=== PATIENT | male | born 1960 | race Caucasian/White ===

== ENCOUNTER 2023-09-19 09:37 | Inpatient (IN) | payer MEDICARE, MEDICAID, SELFPAY ==
[2023-09-19] VITALS (20 sets, daily range): BP systolic 93–117; BP diastolic 51–77; PULSE 66–95; RESP 9–22; TEMP 36.3–36.6; O2SAT 2–100; BMI 25.7; BMI 24.8
--- NOTE | 2023-09-19 09:59 | ED.SOB1 ---
HPI - SOB/Dyspnea General Chief Complaint: Shortness of Breath/Dyspnea Stated Complaint: SHORTNESS OF BREATH Time Seen by Provider: 09/19/23 09:59 Source: medical record and other Source comment: EMS Mode of arrival: ambulance Limitations: altered mental status and physical limitation Limitations comment: Pt has down syndrome History of Present Illness HPI Narrative: patient brought to us from his facility. The facility administrators here but she is not his power of estate planning attorney but she is in excellent historian in regards to his health. He has Down syndrome and this past May was hospitalized for an extensive period time with pneumonia. He was under hospice care at his current facility but he is no longer on that. However he is not to have life support or intubation. Normally he wears oxygen at nighttime. He has high risk for aspiration but he is on a soft diet.his guardian did arrive later in the Emergency Room visit. Related Data Allergies Allergy/AdvReac Type Severity Reaction Status Date / Time Penicillins Allergy Verified 09/19/23 09:41 [facility] PFS Social History Smoking status: Unknown if ever smoked Exam Narrative Exam Narrative: this is a 63-year-old man with history of Down's. He somewhat noncommunicative. Initially he did have a cough but he did receive breathing treatments in route here. His pulse oximetry on 2 L as fluctuated between ninety-five and ninety-nine percent. His oral cavity appears somewhat dry. There is no evidence of ENT trauma or injury. Airways widely patent. He is not drooling he's not stridorous. Chest shows scattered rhonchi with wheezing bilaterally. Abdomen is nondistended and nontender. Extremities do not show any evidence of trauma injury or skin breakdown. Neurologic was at baseline according to the caregiver and his guardian. Constitutional Vital Signs, click to edit/add: Last Vital Signs Temp 97.9 F 09/19/23 09:42 Pulse 94 H 09/19/23 09:42 Resp 22 09/19/23 09:42 BP 99/51 09/19/23 09:42 Pulse Ox 96 09/19/23 09:42 O2 Del Method Nasal Cannula 09/19/23 09:42 O2 Flow Rate 2 09/19/23 09:42 Course Vital Signs Vital signs: Vital Signs Temperature 97.9 F 09/19/23 09:42 Pulse Rate 94 H 09/19/23 09:42 Respiratory Rate 22 09/19/23 09:42 Blood Pressure 99/51 09/19/23 09:42 Pulse Oximetry 96 09/19/23 09:42 Oxygen Delivery Method Nasal Cannula 09/19/23 09:42 Oxygen Delivery Flow Rate 2 09/19/23 09:42 Temperature 97.9 F 09/19/23 09:42 Pulse Rate 94 H 09/19/23 09:42 Respiratory Rate 22 09/19/23 09:42 Blood Pressure 99/51 09/19/23 09:42 Pulse Oximetry 96 09/19/23 09:42 Oxygen Delivery Method Nasal Cannula 09/19/23 09:42 Oxygen Delivery Flow Rate 2 09/19/23 09:42 MDM - SOB/Dyspnea MDM Narrative Medical decision making narrative: chest x-ray is consistent with either atelectasis or early infiltrate in the right lung base. His white blood cell count is modestly elevated. His Bielen is also elevated when compared to [age] when his B1 was [age]. He was started on Rocephin. A bleeding scan early pneumonia and some volume depletion/dehydration. I'll speak to the hospitalist. He is a DNR CCA. Discharge Plan Discharge Chief Complaint: Shortness of Breath/Dyspnea Clinical Impression: Community acquired pneumonia, Dehydration Patient Disposition: Admitted as Observation Time of Disposition Decision: 12:31 Referrals: JESSICA ALBA [Primary Care Provider] - 1 week
--- NOTE | 2023-09-19 10:00 | ECG_ITS ---
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
--- NOTE | 2023-09-19 10:12 | XR_ITS ---
[facility] [place] [id number] Patient Name: MANNIE SANDOVAL MRN: [id number] date: 1960 Sex: M Assigned Patient Location: ER Current Patient Location: ED.MAIN Accession/Order Number: [id number] Exam Date: 09/19/2023 10:05 Report Date: 09/19/2023 12:22 At the request of: ALISON BETH Procedure: XR chest 1V EXAM: XR chest 1V at 1007 hours HISTORY: sob COMPARISON: 11/18/2021 TECHNIQUE: AP upright portable chest x-ray FINDINGS: There is been interval improved aeration at the lung bases with a small amount of atelectasis or infiltrate at the right lung base. The mid and upper lungs are otherwise clear except for a calcified granuloma at the left apex. An artifact courses over the right hemithorax. The heart is not enlarged and the vasculature is not distended. Degenerative changes are seen in the spine and diffusely throughout the shoulder girdle. XR/XR chest 1V IMPRESSION: A small amount of atelectasis or infiltrate is seen at the right lung base. There is significantly improved aeration at both lung bases with comparison with the prior study. There is no evidence of overt cardiac decompensation. Electronically authenticated by: DREA DICKENS Date: 09/19/2023 12:22
[2023-09-19 11:00] LABS: PCO2 VBG 59.2 mmHg (40.0-52.0); pH VBG 7.357 (7.330-7.430)
[2023-09-19] MEDS: CEFTRIAXONE 1,000 MG in 0.9 % SODIUM CHLORIDE 50 ML 100 MG IV (11:06)
[2023-09-19 11:08] LABS: Hematocrit 45.6 % (42.0-54.0); Hemoglobin 14.5 g/dL (14.0-18.0); Mean Corpuscular HGB Conc 31.8 g/dL (29.9-35.2); Mean Corpuscular Hemoglobin 33.2 pg (25.9-34.0); Mean Corpuscular Volume 104.3 fL (80.0-94.0); Mean Platelet Volume 10.7 fL (9.5-13.5); Platelet Count 166 10^3/uL (150-450); Red Blood Count 4.37 10^6/uL (4.70-6.10); White Blood Count 16.1 10^3/uL (4.0-11.0)
[2023-09-19 11:23] LABS: Segmented Neut Absolute Manual 15.13 10^3/uL (1.4-6.5)
[2023-09-19 11:24] LABS: Band Neutrophils Absolute 0.2 10^3/uL (0.0-0.3); Lymphocytes Absolute Manual 0.48 10^3/uL (1.20-3.80); Monocytes Absolute Manual 0.32 10^3/uL (0.30-0.80)
[2023-09-19 11:26] LABS: Alanine Aminotransferase <6 U/L (16-63); Albumin Globulin Ratio 0.7; Albumin Level 2.8 g/dL (3.4-5.0); Alkaline Phosphatase 89 U/L (46-116); Anion Gap 8.2; Aspartate Amino Transferase 12 U/L (15-37); Bilirubin Total 0.4 mg/dL (0.2-1.0); Calcium 8.9 mg/dL (8.5-10.1); Carbon Dioxide 32.7 mmol/L (21.0-32.0); Chloride 105 mmol/L (98-107); Estimated GFR (African America >60 (>=60); Estimated GFR (Non-African Ame >60 (>=60); Globulin 3.9 g/dL; Glucose 185 mg/dL (74-106); Potassium 3.9 mmol/L (3.5-5.1); Sodium 142 mmol/L (136-145); Total Protein 6.7 g/dL (6.4-8.2); Troponin I High Sensitivity 4.8 pg/mL (4.0-76.1)
[2023-09-19 12:13] LABS: Influenza Virus A Antigen Negative; Influenza Virus B Antigen Negative; Internal Control Within Normal Limits; SARS-CoV-2 Ag NEGATIVE (NEGATIVE)
--- NOTE | 2023-09-19 14:25 | P.HP_ITS ---
<Statement entered by Kizzy Dykes, - 09/19/23 15:12> This documentation has been reviewed and approved. I have also seen and evaluated patient and agree with the above findings and plan. H&P: HPI History of Present Illness Chief complaint: SHORTNESS OF BREATH Narrative: 09/19/23 1325 This is a 63-year-old male patient with a past medical history as outlined below including Down syndrome (baseline nonverbal and nonambulatory), BPH, chronic respiratory failure (2 L at night only), blindness of the left eye, chronic dysphagia with history of aspiration pneumonia; who presented to the ED from his residential facility complaining of acute onset of shortness of breath. The patient's care provider is at the bedside along with family and reports that the patient did well overnight with no acute complaints per staff, but this morning when the staff tried to get him up for the day they reported that he was having a hard time breathing. A little while later the caregiver noted that he was in respiratory distress and his O2 sat was 82% at that time. He was given a breathing treatment with brief increase in his saturations but then dropped back within 10 minutes to the low 80s and EMS was called. He was treated with breathing treatments x 2 in the ambulance and placed on O2 supplementation and his symptoms improved. He has a history of dysphagia and aspiration pneumonia, but no aspiration event was obvious to staff prior to this event. Workup in the ED revealed leukocytosis (16.1) dehydration with prerenal azotemia, and a right lower lobe infiltrate on chest x-ray suspicious for aspiration. His blood pressure was initially soft (99/51) but has stabilized with IV fluid administration. He is being admitted as an inpatient to the hospitalist service. At the time of my exam the patient is resting quietly in bed. As stated above he is nonverbal and nonambulatory. He does open his eyes to his name but is unable to cooperate with exam which reflects his baseline condition. Per the family at the bedside he may be a little more lethargic than usual but otherwise is at his baseline. He is in no respiratory distress at this time but is requiring O2 supplementation with 2 L via NC to maintain his saturations. Review of Systems ROS Status of ROS unobtainable due to mental status (Baseline non-verbal 2/2 Down's Syndrome) [facility] Medical History (Updated 09/19/23 @ 14:42 by Maribell Hilario NP) Dysphagia ?R13.10 - Dysphagia, unspecified (ICD-10) Obesity ?E66.9 - Obesity, unspecified (ICD-10) Trochanteric bursitis of right hip ?M70.61 - Trochanteric bursitis, right hip (ICD-10) Umbilical hernia ?K42.9 - Umbilical hernia without obstruction or gangrene (ICD-10) BPH (benign prostatic hyperplasia) ?N40.0 - Benign prostatic hyperplasia without lower urinary tract symptoms (ICD-10) Hyperlipidemia ?E78.5 - Hyperlipidemia, unspecified (ICD-10) Cataract ?H26.9 - Unspecified cataract (ICD-10) Hearing loss ?H91.90 - Unspecified hearing loss, unspecified ear (ICD-10) Blindness of left eye ?H54.40 - Blindness, one eye, unspecified eye (ICD-10) Arthritis ?M19.90 - Unspecified osteoarthritis, unspecified site (ICD-10) Down's syndrome ?Q90.9 - Down syndrome, unspecified (ICD-10) Social History Smoking status: Unknown if ever smoked Meds Home Medications and Allergies Home Medications Medication Instructions Recorded Confirmed Type acetaminophen 650 mg rectal 650 mg MA Q4H PRN fever or pain 09/19/23 09/19/23 History suppository acetaminophen 650 mg 650 mg PO Q8H PRN fever or pain 09/19/23 09/19/23 History tablet,extended release (Tylenol Arthritis Pain) albuterol sulfate 1.25 mg/3 mL 1.25 mg inhalation Q8H PRN 09/19/23 09/19/23 History solution for nebulization shortness of breath or wheezing ammonium lactate 12 % topical cream 1 applic topical DAILY 09/19/23 09/19/23 History bisacodyl 10 mg rectal suppository 10 mg MA DAILY PRN constipation 09/19/23 09/19/23 History dexamethasone 4 mg tablet 4 mg PO DAILY 09/19/23 09/19/23 History docusate sodium 100 mg capsule 100 mg PO DAILY 09/19/23 09/19/23 History (Colace) food supplemt, lactose-reduced 1 ea PO BID 09/19/23 09/19/23 History (Ensure oral liquid) guaifenesin 100 mg/5 mL oral 200 mg PO Q4H PRN cough 09/19/23 09/19/23 History liquid (Chest Congestion Relief) hydrocortisone 1 % topical cream 1 applic topical BID PRN skin 09/19/23 09/19/23 History irritation hyoscyamine sulfate 0.125 mg 0.125 mg PO Q8H 09/19/23 09/19/23 History disintegrating tablet ipratropium 0.5 mg-albuterol 3 mg 3 ml inhalation Q8H 09/19/23 09/19/23 History (2.5 mg base)/3 mL nebulization soln lanolin alcohols-mineral 1 applic topical BID 09/19/23 09/19/23 History oil-w.petrolatum-ceresin topical cream (Eucerin topical cream) loratadine 10 mg tablet 10 mg PO DAILY 09/19/23 09/19/23 History menthol 0.44 %-zinc oxide 20.6 % 1 applic topical TID-QID PRN skin 09/19/23 09/19/23 History topical ointment (Calmoseptine) irritation nystatin 100,000 unit/gram topical 1 applic topical BID 09/19/23 09/19/23 History powder omeprazole 20 mg capsule,delayed 20 mg PO BID 09/19/23 09/19/23 History release polyethylene glycol 3350 17 17 g PO DAILY PRN constipation 09/19/23 09/19/23 History gram/dose oral powder (Miralax) promethazine 25 mg tablet 25 mg PO Q6H PRN nausea and 09/19/23 09/19/23 History vomiting tamsulosin 0.4 mg capsule 0.4 mg PO DAILY 09/19/23 09/19/23 History Allergies Allergy/AdvReac Type Severity Reaction Status Date / Time Penicillins Allergy Verified 09/19/23 09:41 Exam Constitutional Vital Signs, click to edit/add: Last Vital Signs Temp 97.6 F 09/19/23 13:57 Pulse 66 09/19/23 13:57 Resp 22 09/19/23 13:57 BP 117/77 09/19/23 13:57 Pulse Ox 97 09/19/23 13:57 O2 Del Method Nasal Cannula 09/19/23 13:57 O2 Flow Rate 2 09/19/23 13:57 Common normals: no apparent distress and well nourished [facility] Common normals: normocephalic, head/scalp atraumatic and external nose normal Mouth: moist mucous membranes abnormal Details: cracked and parched Eye Common normals: EOMs intact bilaterally, conjunctivae normal and no scleral icterus Alignment: alignment normal Eyelid: eyelids normal Chest Common normals: inspection of chest normal Chest: symmetrical chest wall rise Respiratory Common normals: normal respiratory effort, no retractions and no use of accessory muscles Auscultation: rhonchi (RLL & upper airway) and diminished lung sounds (RLL) Cardio Common normals: no JVD, regular rate, regular rhythm, S1 normal heart sound, S2 normal heart sound, no gallops, no clicks, no murmurs, no rub and peripheral pulses 2+ throughout GI Common normals: Normal to inspection, nondistended, normoactive bowel sounds present, soft to palpation, non-tender, no hepatosplenomegaly, no masses and no bruits Bladder/kidney exam: bladder normal to palpation Extremity Common normals: normal capillary refill General: normal exam except as noted and edema (trace); no clubbing and no cyanosis Neuro Joo Coma Scale: GCS not evaluated Common normals: CN's II-XII intact bilaterally and moves all extremities Psych Common normals: affect normal Attitude: calm Results Labs Labs: Short CBC 09/19/23 Range/Units 10:46 WBC 16.1 H (4.0-11.0) 10^3/uL Hgb 14.5 (14.0-18.0) g/dL Hct 45.6 (42.0-54.0) % Plt Count 166 (150-450) 10^3/uL BMP 09/19/23 10:46 Sodium 142 Potassium 3.9 Chloride 105 Carbon Dioxide 32.7 H BUN 30.0 H Creatinine 1.00 Glucose 185 H Calcium 8.9 Liver Function 09/19/23 Range/Units 10:46 Total Bilirubin 0.4 (0.2-1.0) mg/dL AST 12 L (15-37) U/L ALT <6 L (16-63) U/L Alkaline Phosphatase 89 (46-116) U/L Albumin 2.8 L (3.4-5.0) g/dL ABG ABG results: 09/19/23 10:46 VBG pH 7.357 VBG pCO2 59.2 H Pulse Oximetry Attestation: I have reviewed the pertinent pulse oximetry results. Imaging Chest x-ray: Attestation: I have reviewed the pertinent imaging results. Radiologist's impression: IMPRESSION: A small amount of atelectasis or infiltrate is seen at the right lung base. There is significantly improved aeration at both lung bases with comparison with the prior study. There is no evidence of overt cardiac decompensation. Assessment and Plan Assessment and Plan (1) Aspiration pneumonia: Assessment and Plan: ACUTE * Adm inpatient * No witnessed aspiration event per staff but strong hx of dysphagia and aspiration along w/ RLL infiltrate - we clinically suspect aspiration pneumonia * RLL infiltrate on CXR * Hypoxia * Leukocytosis * Afebrile to date * IVPB Ertapenem for broad gram neg and anaerobic coverage (PCN allergy) * Low clinical concern for MRSA at this time * Duoneb q4h * Percussion vest therapy - pt is unable to cough effectively * O2 via NC to keep sats > 92% * Guaifenisen BID * Repeat CXR in AM * CBC, CMP daily Qualifiers: Aspiration pneumonia type: unspecified Laterality: right Lung location: lower lobe of lung Qualified Code(s): J69.0 - Pneumonitis due to inhalation of food and vomit (2) Acute hypoxic respiratory failure: Assessment and Plan: ACUTE * Pt uses 2L via NC at night only at baseline * O2 sat persistently in the low 80s prior to arrival, 84% documented while in the ED even w/ O2 supplementation * O2 to keep sats > 92%, wean off as able during the day (3) Dehydration: Assessment and Plan: ACUTE * Clinically very dry on exam * Pre-renal azotemia w/ BUN/Cr ratio of 30 * LR IVF at 100/hr * PO liquids thickened to honey (4) Dysphagia: Assessment and Plan: CHRONIC * Soft food, pureed if needed * Honey thickened liquids * Above diet used at home Qualifiers: Dysphagia type: unspecified Qualified Code(s): R13.10 - Dysphagia, unspecified (5) BPH (benign prostatic hyperplasia): Assessment and Plan: CHRONIC * Continue home tamsulosin Qualifiers: Lower urinary tract symptom presence: unspecified whether lower urinary tract symptoms present Qualified Code(s): N40.0 - Benign prostatic hyperplasia without lower urinary tract symptoms (6) Down's syndrome: Assessment and Plan: CHRONIC * Baseline: Non-verbal, non-ambulatory, cannot sit upright for prolonged periods (requires recliner)
--- NOTE | 2023-09-19 14:33 | CM.NOTE ---
[facility] called back and they will send a nurse within the hour to evaluate pt. Updated pt's caregiver that is at bedside.
--- NOTE | 2023-09-19 14:34 | CM.NOTE ---
Dr. Dykes and BRAD Reyna updated on Hospice to evaluate pt within the hour.
--- NOTE | 2023-09-19 16:00 | CM.NOTE ---
Hospice is at bedside for consult.
[2023-09-19 16:11] LABS: SARS-CoV-2 NAA NOT DETECTED (NOT DETECTE)
--- NOTE | 2023-09-19 16:11 | CM.NOTE ---
Hospice after consult feel pt is at his baseline and will not sign him on. Updated RN
[2023-09-19] MEDS: LACTATED RINGER'S SOLUTION 1,000 ML 100 ML IV (17:17)
[2023-09-19] MEDS: ENOXAPARIN SODIUM 40 MG/0.4 ML SYRINGE SUBQ (17:30)
[2023-09-19] MEDS: IPRATROPIUM/ALBUTEROL SULFATE 3 ML AMPUL.NEB IH ×2 (19:31→23:09)
[2023-09-19] MEDS: NYSTATIN 15 GM POWDER 1 APPLIC TOPICAL (21:52)
[2023-09-20] VITALS (9 sets, daily range): BP systolic 101–114; BP diastolic 56–68; PULSE 50–800; RESP 12–20; TEMP 36.7–37.1; O2SAT 90–97
[2023-09-20] MEDS: LACTATED RINGER'S SOLUTION 1,000 ML 100 ML IV ×3 (03:09→23:32)
[2023-09-20] MEDS: IPRATROPIUM/ALBUTEROL SULFATE 3 ML AMPUL.NEB IH ×6 (03:54→22:49)
--- NOTE | 2023-09-20 04:00 | XR_ITS ---
The [address] [address] Patient Name: MANNIE SANDOVAL MRN: [id number] date: 1960 Sex: M Assigned Patient Location: MS Current Patient Location: MS Accession/Order Number: [id number] Exam Date: 09/20/2023 04:28 Report Date: 09/20/2023 07:39 At the request of: JONE MEDRANO Procedure: XR chest 1V EXAM: XR chest 1V HISTORY: Hypoxia, RLL pneumonia COMPARISON: Chest study dated 09/19/2023 TECHNIQUE: AP view the chest was obtained with portable technique at 0425 hours. FINDINGS: Heart and mediastinal contours are unremarkable in appearance. Mild patchy infiltrative changes in the right lower lung field similar to the prior study. Mild atelectatic and/or minimal infiltrative changes in the left lower lung field similar to prior study. No obvious pneumothorax. Moderate to marked degenerative changes about the shoulders. Slight convexity of the lower dorsal spine to the right. XR/XR chest 1V IMPRESSION: Mild infiltrative changes in the right lower lung field. Mild atelectatic and/or minimal infiltrative changes in the left lower lung field. Findings are similar to the prior study. Electronically authenticated by: KUNAL CUELLAR Date: 09/20/2023 07:39
[2023-09-20 04:32] LABS: Basophils Absolute Auto 0.1 10^3/uL (0.0-0.1); Basophils Percent Auto 0.4 % (0.2-2.0); Eosinophils Absolute Auto 0.1 10^3/uL (0.0-0.7); Eosinophils Percent Auto 0.5 % (0.9-7.0); Hematocrit 39.5 % (42.0-54.0); Hemoglobin 12.9 g/dL (14.0-18.0); Immature Granulocytes Abs Auto 0.16 10^3/uL (0.00-0.03); Immature Granulocytes Pct Auto 1.4 % (0.0-0.5); Lymphocytes Absolute Auto 1.3 10^3/uL (1.2-3.8); Lymphocytes Percent Auto 11.7 % (20.5-60.0); Mean Corpuscular HGB Conc 32.7 g/dL (29.9-35.2); Mean Corpuscular Hemoglobin 32.9 pg (25.9-34.0); Mean Corpuscular Volume 100.8 fL (80.0-94.0); Mean Platelet Volume 10.3 fL (9.5-13.5); Monocytes Absolute Auto 0.7 10^3/uL (0.3-0.8); Monocytes Percent Auto 6.3 % (1.7-12.0); Neutrophils Absolute Auto 9.2 10^3/uL (1.4-6.5); Neutrophils Percent Auto 79.7 % (43.0-75.0); Platelet Count 137 10^3/uL (150-450); Red Blood Count 3.92 10^6/uL (4.70-6.10); Red Cell Distribution Width 14.8 % (11.0-15.0); White Blood Count 11.5 10^3/uL (4.0-11.0)
[2023-09-20 04:57] LABS: Alanine Aminotransferase 16 U/L (16-63); Albumin Globulin Ratio 0.7; Albumin Level 2.4 g/dL (3.4-5.0); Alkaline Phosphatase 72 U/L (46-116); Aspartate Amino Transferase 13 U/L (15-37); BUN Creatinine Ratio 28.8; Bilirubin Total 0.3 mg/dL (0.2-1.0); Calcium 8.6 mg/dL (8.5-10.1); Carbon Dioxide 27.8 mmol/L (21.0-32.0); Chloride 106 mmol/L (98-107); Estimated GFR (African America >60 (>=60); Estimated GFR (Non-African Ame >60 (>=60); Globulin 3.5 g/dL; Glucose 90 mg/dL (74-106); Potassium 3.8 mmol/L (3.5-5.1); Sodium 139 mmol/L (136-145); Total Protein 5.9 g/dL (6.4-8.2)
[2023-09-20] MEDS: HYOSCYAMINE SULFATE 0.125 MG TAB.SUBL PO ×2 (06:30→14:44)
[2023-09-20] MEDS: OMEPRAZOLE 20 MG CAPSULE.DR PO ×2 (08:38→17:05)
[2023-09-20] MEDS: TAMSULOSIN HCL 0.4 MG CAPSULE PO (08:38)
[2023-09-20] MEDS: GUAIFENESIN 200 MG/10 ML LIQUID PO (08:38)
[2023-09-20] MEDS: NYSTATIN 15 GM POWDER 1 APPLIC TOPICAL ×2 (08:38→21:43)
[2023-09-20] MEDS: DEXAMETHASONE 4 MG TABLET PO (08:38)
[2023-09-20] MEDS: DOCUSATE SODIUM 100 MG CAPSULE PO (08:38)
[2023-09-20] MEDS: ERTAPENEM SODIUM 1 GM in 0.9 % SODIUM CHLORIDE 50 ML IV (08:42)
--- NOTE | 2023-09-20 09:56 | CM.NOTE ---
Rounding with Dr. Dykes. Pt. is from care facility and family voiced plans to return upon discharge. No anticipated discharge today.
--- NOTE | 2023-09-20 10:11 | P.PN_ITS ---
<Statement entered by Kizzy Dykes DO - 09/20/23 14:06> This documentation has been reviewed and approved. Patient also seen and evaluated by me. I have reviewed and agree with the above findings and plan of care. Probable discharge back to [facility] tomorrow with oral antibiotics. Progress Note: Subjective Subjective Interval history: 09/20/23 0820 The patient is resting in bed. His respirations appear even and unlabored at this time. His O2 supplementation was able to be weaned off this morning and his sats are stable currently on room air. He continues to have significant rhonchi throughout and has poor cough effort. He will remain in the hospital for 1 more day for IVPB antibiotic administration and chest physiotherapy vest treatments to help with sputum mobilization. Discharge likely in the next 24-48 hrs. Exam Constitutional Vital Signs, click to edit/add: Last Vital Signs Temp 98.5 F 09/20/23 05:31 Pulse 50 L 09/20/23 07:44 Resp 20 09/20/23 05:31 BP 114/68 09/20/23 05:31 Pulse Ox 97 09/20/23 07:44 O2 Del Method Room Air 09/20/23 07:44 O2 Flow Rate 2 09/19/23 23:11 Common normals: no apparent distress Orientation/consciousness: not awake (opens eyes to voice) Other: Baseline MRDD, non-verbal, non-ambulatory HENMT Common normals: normocephalic and head/scalp atraumatic Mouth: moist mucous membranes abnormal Details: parched (Improving) Eye Common normals: PERRL, EOMs intact bilaterally, conjunctivae normal and no scleral icterus General eye: normal appearance of both eyes Chest Common normals: inspection of chest normal Chest: symmetrical chest wall rise Respiratory Common normals: normal respiratory effort and no use of accessory muscles Auscultation: rhonchi (Scattered throughout, greatest on R) Cardio Common normals: regular rate, regular rhythm, S1 normal heart sound, S2 normal heart sound, no murmurs and peripheral pulses 2+ throughout GI Common normals: Normal to inspection, nondistended, normoactive bowel sounds present, soft to palpation, non-tender and no hepatosplenomegaly Bladder/kidney exam: bladder normal to palpation Extremity Common normals: normal to inspection and no calf tenderness General: no clubbing, no cyanosis and no edema Neuro Common normals: moves all extremities Psych Common normals: mental status grossly normal Progress Note: Objective Labs Labs: Short CBC 09/19/23 09/20/23 Range/Units 10:46 04:18 WBC 16.1 H 11.5 H (4.0-11.0) 10^3/uL Hgb 14.5 12.9 L (14.0-18.0) g/dL Hct 45.6 39.5 L (42.0-54.0) % Plt Count 166 137 L (150-450) 10^3/uL BMP 09/19/23 09/20/23 10:46 04:18 Sodium 142 139 Potassium 3.9 3.8 Chloride 105 106 Carbon Dioxide 32.7 H 27.8 BUN 30.0 H 21.0 H Creatinine 1.00 0.73 Glucose 185 H 90 Calcium 8.9 8.6 Liver Function 09/19/23 09/20/23 Range/Units 10:46 04:18 Total Bilirubin 0.4 0.3 (0.2-1.0) mg/dL AST 12 L 13 L (15-37) U/L ALT <6 L 16 (16-63) U/L Alkaline Phosphatase 89 72 (46-116) U/L Albumin 2.8 L 2.4 L (3.4-5.0) g/dL Progress Note: A&P Assessment and Plan (1) Aspiration pneumonia: Assessment and Plan: ACUTE * Improving * Clinically suspected aspiration pneumonia * RLL infiltrate on CXR * Hypoxia - resolving to baseline 2L O2 at [facility] * Leukocytosis - Improved * remains afebrile to date * Continue IVPB Ertapenem for broad gram neg and anaerobic coverage (PCN allergy) * Low clinical concern for MRSA at this time * Continue Duoneb q4h * Continue Percussion vest therapy - pt is unable to cough effectively * O2 via NC to keep sats > 92% - weaned down to RA today. (Continue home O2 at [facility] @ 2L) * Guaifenisen BID * CBC, CMP daily Qualifiers: Aspiration pneumonia type: unspecified Laterality: right Lung location: lower lobe of lung Qualified Code(s): J69.0 - Pneumonitis due to inhalation of food and vomit (2) Acute hypoxic respiratory failure: Assessment and Plan: ACUTE * Resolving - Nursing able to wean off O2 supplementation this morning. Stable on RA * Pt uses 2L via NC at night only at baseline * O2 to keep sats > 92%, wean off as able during the day (3) Dehydration: Assessment and Plan: ACUTE * Clinically remains dry on exam but improving * Continue LR IVF at 100/hr * PO liquids thickened to honey (4) Dysphagia: Assessment and Plan: CHRONIC * Soft food, pureed if needed * Honey thickened liquids * Above diet used at home Qualifiers: Dysphagia type: unspecified Qualified Code(s): R13.10 - Dysphagia, unspecified (5) BPH (benign prostatic hyperplasia): Assessment and Plan: CHRONIC * Continue home tamsulosin Qualifiers: Lower urinary tract symptom presence: unspecified whether lower urinary tract symptoms present Qualified Code(s): N40.0 - Benign prostatic hyperplasia without lower urinary tract symptoms (6) Down's syndrome: Assessment and Plan: CHRONIC * Baseline: Non-verbal, non-ambulatory, cannot sit upright for prolonged periods (requires recliner)
[2023-09-20] MEDS: ENOXAPARIN SODIUM 40 MG/0.4 ML SYRINGE SUBQ (17:05)
[2023-09-21 03:27] VITALS: PULSE 67; RESP 18; O2SAT 93
[2023-09-21] MEDS: IPRATROPIUM/ALBUTEROL SULFATE 3 ML AMPUL.NEB IH ×3 (03:27→11:33)
[2023-09-21 05:02] VITALS: BP 137/92; PULSE 83; RESP 16; TEMP 36.8; O2SAT 94
[2023-09-21 05:45] LABS: Basophils Percent Auto 0.4 % (0.2-2.0); Eosinophils Absolute Auto 0.1 10^3/uL (0.0-0.7); Eosinophils Percent Auto 0.6 % (0.9-7.0); Hematocrit 41.6 % (42.0-54.0); Hemoglobin 13.2 g/dL (14.0-18.0); Immature Granulocytes Abs Auto 0.12 10^3/uL (0.00-0.03); Immature Granulocytes Pct Auto 1.4 % (0.0-0.5); Lymphocytes Absolute Auto 1.1 10^3/uL (1.2-3.8); Lymphocytes Percent Auto 13.4 % (20.5-60.0); Mean Corpuscular HGB Conc 31.7 g/dL (29.9-35.2); Mean Corpuscular Hemoglobin 32.7 pg (25.9-34.0); Mean Platelet Volume 10.5 fL (9.5-13.5); Monocytes Absolute Auto 0.5 10^3/uL (0.3-0.8); Monocytes Percent Auto 6.4 % (1.7-12.0); Neutrophils Absolute Auto 6.5 10^3/uL (1.4-6.5); Neutrophils Percent Auto 77.8 % (43.0-75.0); Platelet Count 165 10^3/uL (150-450); Red Blood Count 4.04 10^6/uL (4.70-6.10); Red Cell Distribution Width 14.9 % (11.0-15.0); White Blood Count 8.3 10^3/uL (4.0-11.0)
[2023-09-21 06:19] LABS: Alanine Aminotransferase 17 U/L (16-63); Albumin Globulin Ratio 0.6; Albumin Level 2.4 g/dL (3.4-5.0); Alkaline Phosphatase 77 U/L (46-116); Anion Gap 8.8; Aspartate Amino Transferase 10 U/L (15-37); BUN Creatinine Ratio 18.9; Bilirubin Total 0.3 mg/dL (0.2-1.0); Calcium 8.7 mg/dL (8.5-10.1); Carbon Dioxide 30.1 mmol/L (21.0-32.0); Chloride 104 mmol/L (98-107); Estimated GFR (African America >60 (>=60); Estimated GFR (Non-African Ame >60 (>=60); Globulin 3.7 g/dL; Glucose 105 mg/dL (74-106); Potassium 3.9 mmol/L (3.5-5.1); Sodium 139 mmol/L (136-145); Total Protein 6.1 g/dL (6.4-8.2)
[2023-09-21] MEDS: HYOSCYAMINE SULFATE 0.125 MG TAB.SUBL PO (06:22)
[2023-09-21 08:11] VITALS: O2SAT 95
[2023-09-21] MEDS: GUAIFENESIN 200 MG/10 ML LIQUID PO (08:50)
[2023-09-21] MEDS: OMEPRAZOLE 20 MG CAPSULE.DR PO (08:50)
[2023-09-21] MEDS: ERTAPENEM SODIUM 1 GM in 0.9 % SODIUM CHLORIDE 50 ML IV (08:50)
[2023-09-21] MEDS: DEXAMETHASONE 4 MG TABLET PO (08:50)
[2023-09-21] MEDS: TAMSULOSIN HCL 0.4 MG CAPSULE PO (08:50)
[2023-09-21] MEDS: DOCUSATE SODIUM 100 MG CAPSULE PO (08:50)
[2023-09-21] MEDS: LACTATED RINGER'S SOLUTION 1,000 ML 100 ML IV (08:51)
[2023-09-21] MEDS: NYSTATIN 15 GM POWDER 1 APPLIC TOPICAL (08:51)
--- NOTE | 2023-09-21 10:31 | P.DS_ITS ---
DS: Providers Provider Date of admission: 09/19/23 15:01 Primary care physician: JESSICA ALBA Consults: 09/19/23 Consult to Hospice Routine Reason for consultation: Extensive pneumonia (Down Syndrome) Recently discharge from Hospice DS: Diagnosis Discharge Diagnosis (1) Aspiration pneumonia: Qualifiers: Aspiration pneumonia type: unspecified Laterality: right Lung location: lower lobe of lung Qualified Code(s): J69.0 - Pneumonitis due to inhalation of food and vomit (2) Acute hypoxic respiratory failure: (3) Dehydration: (4) Dysphagia: Qualifiers: Dysphagia type: unspecified Qualified Code(s): R13.10 - Dysphagia, unspecified (5) BPH (benign prostatic hyperplasia): Qualifiers: Lower urinary tract symptom presence: unspecified whether lower urinary tract symptoms present Qualified Code(s): N40.0 - Benign prostatic hyperplasia without lower urinary tract symptoms (6) Down's syndrome: Plan (1) Aspiration pneumonia: ACUTE, RLL infiltrate on CXR * Hypoxia - resolving to baseline 2L O2 at noc * Leukocytosis - Improved * (2) Acute hypoxic respiratory failure: (3) Dehydration: (4) Dysphagia: (5) BPH: (6) Down's syndrome: (7) Mod PCM based on NIH criteria (8) Iron def anemia (9) Thrombocytopenia DS: Summary Hospital Course Hospital Course: Patient is a resident of a long-term care facility with Down syndrome, nonverbal, presented with increasing shortness of breath, found to have bilateral infiltrates, consistent with aspiration pneumonia-patient treated with aerosol treatments, IV antibiotics, broad-spectrum secondary to her facility. Her blood cell count initially elevated but is back down to normal, also some thrombocytopenia likely secondary to bone marrow suppression from the above. Overall patient is back to baseline from an oxygenation standpoint, white blood cell count is normal, platelet count is recovered, BUN and creatinine consistent with dehydration were improved. He will be discharged back to his facility with continued antibiotics. Medications see list. Follow-up with normal physician at facility Time Spent with Patient Time attestation: Total time spent providing and/or coordinating discharge services: Exam Constitutional Vital Signs, click to edit/add: Last Vital Signs Temp 98.2 F 09/21/23 05:02 Pulse 83 09/21/23 05:02 Resp 16 09/21/23 05:02 BP 137/92 H 09/21/23 05:02 Pulse Ox 95 09/21/23 08:11 O2 Del Method Room Air 09/21/23 08:11 O2 Flow Rate 2 09/19/23 23:11 Common normals: no apparent distress Orientation/consciousness: not awake (opens eyes to voice) Other: Baseline MRDD, non-verbal, non-ambulatory HENMT Common normals: normocephalic and head/scalp atraumatic Mouth: moist mucous membranes abnormal Details: parched (Improving) Eye Common normals: PERRL, EOMs intact bilaterally, conjunctivae normal and no scleral icterus General eye: normal appearance of both eyes Chest Common normals: inspection of chest normal Chest: symmetrical chest wall rise Respiratory Common normals: normal respiratory effort and no use of accessory muscles Auscultation: rhonchi (Scattered throughout, greatest on R) Cardio Common normals: regular rate, regular rhythm, S1 normal heart sound, S2 normal heart sound, no murmurs and peripheral pulses 2+ throughout GI Common normals: Normal to inspection, nondistended, normoactive bowel sounds present, soft to palpation, non-tender and no hepatosplenomegaly Bladder/kidney exam: bladder normal to palpation Extremity Common normals: normal to inspection and no calf tenderness General: no clubbing, no cyanosis and no edema Neuro Common normals: moves all extremities Psych Common normals: mental status grossly normal DS: Data Data Completed and Pending Labs on day of discharge: Labs from last 24 hours 09/21/23 04:47 WBC 8.3 RBC 4.04 L Hgb 13.2 L Hct 41.6 L MCV 103.0 H MCH 32.7 MCHC 31.7 RDW 14.9 Plt Count 165 MPV 10.5 Neut % (Auto) 77.8 H Lymph % (Auto) 13.4 L Ramsey % (Auto) 6.4 Eos % (Auto) 0.6 L Baso % (Auto) 0.4 Neut # (Auto) 6.5 Lymph # (Auto) 1.1 L Ramsey # (Auto) 0.5 Eos # (Auto) 0.1 Baso # (Auto) 0.0 Abs Immat Gran (auto) 0.12 H Imm/Tot Granulo (auto) 1.4 H Sodium 139 Potassium 3.9 Chloride 104 Carbon Dioxide 30.1 Anion Gap 8.8 BUN 14.0 Creatinine 0.74 Est GFR ( Amer) >60 Est GFR (Non-Af Amer) >60 BUN/Creatinine Ratio 18.9 Glucose 105 Calcium 8.7 Total Bilirubin 0.3 AST 10 L ALT 17 Alkaline Phosphatase 77 Total Protein 6.1 L Albumin 2.4 L Globulin 3.7 Albumin/Globulin Ratio 0.6 Discharge Plan Discharge Disposition: Xfer LTC Discharge Medications: New levofloxacin 500 mg tablet 500 mg PO DAILY 10 Days Qty: 10 0RF Continued dexamethasone 4 mg tablet 4 mg PO DAILY docusate sodium [Colace] 100 mg capsule 100 mg PO DAILY hyoscyamine sulfate 0.125 mg tablet,disintegrating 0.125 mg PO Q8H loratadine 10 mg tablet 10 mg PO DAILY omeprazole 20 mg capsule,delayed release(DR/EC) 20 mg PO BID tamsulosin 0.4 mg capsule 0.4 mg PO DAILY acetaminophen [Tylenol Arthritis Pain] 650 mg tablet extended release 650 mg PO Q8H PRN (Reason: fever or pain) albuterol sulfate 1.25 mg/3 mL solution for nebulization 1.25 mg inhalation Q8H PRN (Reason: shortness of breath or wheezing) bisacodyl 10 mg suppository 10 mg MA DAILY PRN (Reason: constipation) promethazine 25 mg tablet 25 mg PO Q6H PRN (Reason: nausea and vomiting) Rx Instructions: 3 doses during day; last dose no later than 4 hr before bedtime ammonium lactate 12 % cream 1 applic topical DAILY Rx Instructions: APPLY TO AFFECTED AREA nystatin 100,000 unit/gram powder 1 applic topical BID Ensure Liquid 1 ea PO BID ipratropium-albuterol 0.5 mg-3 mg(2.5 mg base)/3 mL solution for nebulization 3 ml inhalation Q8H Eucerin Cream 1 applic topical BID acetaminophen 650 mg suppository 650 mg MA Q4H PRN (Reason: fever or pain) Rx Instructions: MAX 4 GRAM/DAY menthol-zinc oxide [Calmoseptine] 0.44-20.6 % ointment 1 applic topical TID-QID PRN (Reason: skin irritation) Rx Instructions: APPLY TO BUTTOCKS WITH EACH BRIEF CHANGE NEEDED guaifenesin [Chest Congestion Relief] 100 mg/5 mL liquid 200 mg PO Q4H PRN (Reason: cough) hydrocortisone 1 % cream 1 applic topical BID PRN (Reason: skin irritation) polyethylene glycol 3350 [Miralax] 17 gram/dose powder 17 g PO DAILY PRN (Reason: constipation) Rx Instructions: TAKE NEEDED FOR NO BOWEL MOVEMENT FOR 48 HOURS Forms: Portal Instructions Follow Up Appointments: Patient to follow up with Primary Care Physician in 7-10 days.
[2023-09-21 11:36] VITALS: O2SAT 94
== END 2023-09-21 13:12 | DRG 177 ==
LOC: ER 12:31 → MS 12:50
PROVIDERS: Nurse Practitioner; Admitting Provider Family Medicine; Emergency Provider Emergency Medicine Emergency Medical Services; PCP Internal Medicine; Visit Provider Family Medicine
DX: J69.0 Pneumonitis due to inhalation of food and vomit (principal); J96.01 Acute respiratory failure with hypoxia; E44.0 Moderate protein-calorie malnutrition; Q90.9 Down syndrome, unspecified; N40.0 Benign prostatic hyperplasia without lower urinary tract symptoms; H54.62 Unqualified visual loss, left eye, normal vision right eye; R13.10 Dysphagia, unspecified; E86.0 Dehydration; E66.9 Obesity, unspecified; E78.5 Hyperlipidemia, unspecified; M19.90 Unspecified osteoarthritis, unspecified site; Z79.899 Other long term (current) drug therapy; R79.89 Other specified abnormal findings of blood chemistry; D50.9 Iron deficiency anemia, unspecified; D69.6 Thrombocytopenia, unspecified; Z68.24 Body mass index [BMI] 24.0-24.9, adult; F79 Unspecified intellectual disabilities; Z87.01 Personal history of pneumonia (recurrent); Z66 Do not resuscitate
CPT/HCPCS: 36415; 71045; 80053; 82800; 83880; 84484; 85025; 85027; 87040; 87635; 87804; 87811; 93005; 94640; 94667; 94668; 94761; 96361; 96365; 96366; 96367; 96372; 99285; J1335

== ENCOUNTER 2023-10-13 09:35 | Inpatient (IN) | payer MEDICARE, MEDICAID, SELFPAY ==
[2023-10-13] VITALS (27 sets, daily range): BP systolic 107–119; BP diastolic 62–78; PULSE 56–94; RESP 0–28; TEMP 36.4–36.9; O2SAT 93–98; BMI 28.2; BMI 25.8
--- NOTE | 2023-10-13 09:42 | XR_ITS ---
The [address] [address] Patient Name: MANNIE SANDOVAL MRN: [id number] date: 1960 Sex: M Assigned Patient Location: ED.MAIN Current Patient Location: ER Accession/Order Number: [id number] Exam Date: 10/13/2023 09:50 Report Date: 10/13/2023 10:14 At the request of: MOISES DE ANDA Procedure: XR chest 1V EXAMINATION: XR chest 1V HISTORY: sob COMPARISON: XR chest 09/20/2023 FINDINGS: LUNGS: Underexpanded lungs with mild patchy and strandy opacities within medial right lung base. VASCULATURE: No increased pulmonary vasculature. PLEURA: No pneumothorax, effusion, or pleural thickening. CARDIAC: No cardiomegaly or cardiac silhouette abnormality. MEDIASTINUM: No visible mass or adenopathy. BONES: Advanced degenerative changes of the shoulders. OTHER: Negative. XR/XR chest 1V IMPRESSION: 1. Low lung volume examination with mild right basilar infiltrates versus atelectasis; not significant changed. Electronically authenticated by: MANISH BURNETT Date: 10/13/2023 10:14
--- OUTSIDE RECORDS SUMMARY | 2023-10-13 09:47 | XMS_ITS | CCD ---
Author Name Unknown Address [address] [facility] [address] [place] [address] Organization [facility] Care Team Providers [employer] Name Role Phone Jessica Alba Primary Care Provider JESSICA ALBA Primary Care Unavailable Fer Page Attending Unavailable JESSICA ALBA Consulting Unavailable Jessica Alba Primary Care Provider [phone] Jessica Alba MD Primary Care Provider Jessica Alba MD Primary Care Provider Jessica Alba MD Primary Care Provider SAM, MIKE Attending Unavailable DR ORITZ SINHA Consulting Unavailable MISC, DR JOHNSON Primary Care Unavailable SAMSA, MIKE Admitting Unavailable SAMSA MIKE Consulting Unavailable AUSTIN BARCLAY Consulting Unavailable Kianna Donato Consulting Unavailable DR JESSICA ALBA Admitting Unavailable KVNG, DR JOHNSON Primary Care Unavailable PARTH, DR LOPEZ Attending Unavailable DR JESSICA ALBA Consulting Unavailable HAYDEE HAMMOND Attending Unavailable HAYDEE HAMMOND Admitting Unavailable HAYDEE HAMMOND Consulting Unavailable MISSravani, DR JOHNSON Primary Care Unavailable MISC, DR JOHNSON Primary Care Unavailable KATARZYNA ADAMS Admitting Unavailable KATARZYNA ADAMS Attending Unavailable KATARZYNA ADAMS Consulting Unavailable JEAN POWER Consulting Unavailable Kristi Griffin Consulting Unavailable Alexx Foreman Consulting Unavailable Jessica Alba MD Primary Care Provider JESSICA ALBA Primary Care Unavailable JESSICA ALBA Attending Unavailable FERDINAND SMITH Consulting Unavailable JESSICA ALBA Admitting Unavailable JESSICA ALBA Primary Care Unavailable JESSICA ALBA Primary Care Unavailable JANUARY DAY Referring Unavailable JESSICA ALBA Primary Care Unavailable JANUARY DAY [facility] CAN GIORDANO Admitting Unavailable CAN GIORDANO Attending Unavailable Allergies Allergy Classification Reported Allergen(s) Allergy Type Date of Onset Reaction(s) Facility Penicillins (antibiotic) (1 source) Penicillins Drug Allergy 4 [facility] Work Phone: (20 sources) Penicillins Propensity to adverse reactions to drug 4 [facility], [place] (2 sources) Penicillin; Translations: [penicillin] Drug Allergy 2 [facility] Repository Medications Current Medications Medication Drug Class(es) Dates Sig (Normalized) Sig (Original) Acetaminophen (20 sources) Start: 05-29-2022 acetaminophen (TYLENOL) tablet 650 mg Start: 10-20-2019 take 2 tablets by mo uth twice daily as needed for pain acetaminophen (SM PAIN RELIEVER) 325 MG tablet Take 2 tablets by mouth 2 times daily as needed for Pain Maximum dose of acetaminophen is 4000 mg from all sources in 24 hours. 120 tablet 2 10/20/2019 Suspended Start: 09-16-2018 take 2 tablets by mo uth twice daily as needed for pain acetaminophen (MAPAP) 325 MG tablet Take 2 tablets by mouth 2 times daily as needed for Pain 120 tablet 3 09/16/2018 Active albuterol 0.83 mg/ml inhalation solution (5 sources) beta2-Adrenergic Agonist Start: 05-29-2022 albut qing (PROVENTIL) nebulizer solution 1.25 mg Start: 12-23-2020 take 3 mL by inhalat ion three times daily as needed for wheezing albuterol (ACCUNEB) 1.25 MG/3ML nebulizer solution Indications: Acute bronchitis, unspecified organism Inhale 3 mLs into the lungs 3 times daily as needed for Wheezing 120 vial 1 12/23/2020 Active albuterol (ACCUN EB) 1.25 MG/3ML nebulizer solution Inhale 1 ampule into the lungs every 6 hours as needed for Wheezing 0 Suspended calcium chloride 0.0014 meq/ ml / potassium chloride 0.004 meq/ml / sodium chloride 0.103 meq/ml / sodium lactate 0.028 meq/ml injectable solution (2 sources) Start: 07-13-2021 lactated ringe rs infusion Start: 11-02-2019 lactated ringe rs infusion famotidine 20 mg oral tablet (9 sources) Histamine-2 Receptor Antagonist Start: 01-08-2020 take 1 tablet by mouth twice daily famotidine (PEPCID) 20 MG tablet Take 1 tablet by mouth 2 times daily 60 tablet 3 01/08/2020 Active Start: 09-01-2019 take 1 tablet by mary th twice daily famotidine (PEPCID) 20 MG tablet Take 1 tablet by mouth 2 times daily 60 tablet 5 09/01/2019 Active take 1 tablet by mary th twice daily famotidine (PEPCID) 10 MG tablet Take 10 mg by mouth 2 times daily 0 Active fluticasone propionate 0.05 mg/actuat metered dose nasal spray (1 source) Corticosteroid Start: 01-20-2020 take 1 spray(s) nasal route once daily fluticasone (FLONASE) 50 MCG/ACT nasal spray 1 spray by Each Nostril route daily [id number] 2 Bottle 0 01/20/2020 Active 60 actuat fluticasone propionate 0.25 mg/actuat / salmeterol 0.05 mg/actuat dry powder inhaler (1 source) Corticosteroid, beta2-Adrenergic Agonist Start: 01-20-2020 take 1 puff(s) by inhalation every twelve hours fluticasone-salme terol (ADVAIR DISKUS) 250-50 MCG/DOSE AEPB Inhale 1 puff into the lungs every 12 hours x4 weeks 60 each 0 01/20/2020 Active levoFLOXacin 500 mg oral tablet (2 sources) Quinolone Antimicrobial Start: 05-31-2022 End: 06-07-2022 take 1 tablet by mouth once daily levoFLOXacin (LEVAQUIN) 500 MG tablet Take 1 tablet by mouth daily for 7 days 7 tablet 0 05/31/2022 06/07/2022 Active Start: 05-29-2022 levoFLOXacin ( LEVAQUIN) 750 MG/150ML infusion 750 mg mirtazapine 7.5 mg oral tablet (2 sources) Start: 04-19-2021 take 1 tablet by mouth once daily mirtazapine (REMERON) 7.5 MG tablet Take 1 tablet by mouth nightly 30 tablet 5 04/19/2021 Active nitrofurantoin, macrocrystals 25 mg / nitrofurantoin, monohydrate 75 mg oral capsule (4 sources) Nitrofuran Antibacterial Start: 08-18-2019 End: 08-28-2019 take 1 capsule by mouth twice daily nitrofurantoin, macrocrystal-monohy drate, (MACROBID) 100 MG capsule Take 1 capsule by mouth 2 times daily for 10 days 20 capsule 0 08/18/2019 08/28/2019 Active nystatin 100 unt/mg topical powder (6 sources) Polyene Antifungal Start: 09-15-2018 nystatin (MYCOSTATIN) [id number] UNIT/GM powder Apply 3 times daily PRN 45 g 3 09/15/2018 Active ondansetron (ZOFRAN-ODT) disintegrating tablet 4 mg (1 source) Start: 05-29-2022 ondansetron (ZOFRAN-ODT) disintegrating tablet 4 mg petrolatum 610 mg/ml topical cream (10 sources) Start: 05-29-2022 apply 1 dose topically once daily Topical, DAILY, First dose on Sat05/29/22 at 1500 Apply to skin folds. Start: 01-31-2018 Skin Protectan ts, Misc. (HYDROCERIN) CREA cream Apply to abdominal folds daily 228 g 5 01/31/2018 Suspended raNITIdine 150 mg oral tablet (6 sources) Histamine-2 Receptor Antagonist Start: 02-09-2019 take 1 tablet by mouth once daily ranitidine (ZANTAC) 150 MG tablet Take 1 tablet by mouth daily 90 tablet 3 02/09/2019 Active sertraline 25 mg oral tablet (3 sources) Serotonin Reuptake Inhibitor Start: 01-11-2021 take 0.5 tablet by mouth once daily sertraline (ZOLOFT) 25 MG tablet Take 0.5 tablets by mouth daily 30 tablet 5 01/11/2021 Active Skin Protectants, Misc. (HYDROCERIN) CREA cream (12 sources) Start: 01-31-2018 Skin Protectants, Misc. (HYDROCERIN) CREA cream Apply to abdominal folds daily 228 g 5 01/31/2018 Active sulfamethoxazole 800 mg / trimethoprim 160 mg oral tablet (2 sources) Dihydrofolate Reductase Inhibitor Antibacterial, Sulfonamide Antimicrobial take 1 tablet by mouth twice daily sulfamethoxazole -trimethoprim (BACTRIM DS;SEPTRA DS) 800-160 MG per tablet Take 1 tablet by mouth 2 times daily To be taken for ten days. 0 Active Completed/Discontinued Medications Medication Drug Class(es) Dates Sig (Normalized) Sig (Original) albuterol 0.833 mg/ml / ipratropium bromide 0.167 mg/ml inhalation solution (2 sources) Anticholinergic, beta2-Adrenergic Agonist Start: 05-29-2022 End: 05-29-2022 ipratropium-albut qing (DUONEB) nebulizer solution 1 ampule ascorbic acid 500 mg oral tablet (1 source) Vitamin C Start: 11-30-2021 End: 05-31-2022 take 2 tablets by mouth once daily vitamin C (ASCORBIC ACID) 500 MG tablet Indications: COVID Take 2 tablets by mouth daily for 14 days 28 tablet 0 11/30/2021 05/31/2022 Discontinued (Stop Taking at Discharge) aspirin 325 mg delayed release oral tablet (1 source) Platelet Aggregation Inhibitor, Nonsteroidal Anti-inflammatory Drug Start: 11-30-2021 End: 05-31-2022 take 1 tablet by mouth once daily aspirin 325 MG EC tablet Indications: COVID Take 1 tablet by mouth daily for 14 days 14 tablet 0 11/30/2021 05/31/2022 Discontinued (Stop Taking at Discharge) atorvastatin 40 mg oral tablet (1 source) HMG-CoA Reductase Inhibitor Start: 05-29-2022 take 40 mg by mouth once daily 40 mg, Oral, DAILY, First dose on Sat05/29/22 at 1500, Until Discontinued Substituted for Simvastatin (ZOCOR). barium sulfate 60 % suspension 355 mL (1 source) Start: 05-30-2022 End: 05-30-2022 barium sulfate 60 % suspension 355 mL cetirizine hydrochloride 10 mg oral tablet (1 source) Histamine-1 Receptor Antagonist Start: 05-29-2022 take 10 mg by mouth once daily 10 mg, Oral, DAILY, First dose on Sat05/29/22 at 1500, Until Discontinued Substituted for Loratadine (CLARITIN). cholecalciferol 0.025 mg oral tablet (1 source) Vitamin D Start: 11-30-2021 End: 05-31-2022 take 1 tablet by mouth once daily vitamin D3 (CHOLECALCIFEROL) 25 MCG (1000 UT) TABS tablet Indications: COVID Take 1 tablet by mouth daily for 14 days 14 tablet 0 11/30/2021 05/31/2022 Discontinued (Stop Taking at Discharge) 50 ml clindamycin 18 mg/ml injection (1 source) Lincosamide Antibacterial Start: 07-13-2021 End: 07-13-2021 clindamycin (CLEOCIN) 900 mg in dextrose 5 % 50 mL IVPB docusate sodium 100 mg oral capsule (20 sources) Start: 08-01-2020 take 100 mg by mouth once daily 100 mg, Oral, NIGHTLY, First dose on Sat05/29/22 at 2100, Until Discontinued Do not crush or break. Start: 05-03-2020 take 1 capsule by mo uth once daily docusate sodium (COLACE) 100 MG capsule Take 1 capsule by mouth nightly 90 capsule 0 05/03/2020 Active Start: 02-02-2020 take 1 capsule by mo uth once daily docusate sodium (COLACE) 100 MG capsule Take 1 capsule by mouth nightly 90 capsule 0 02/02/2020 Active Start: 08-13-2019 take 1 capsule by mo uth once daily docusate sodium (COLACE) 100 MG capsule Take 1 capsule by mouth nightly 90 capsule 1 08/13/2019 Active 0.4 ml enoxaparin sodium 100 mg/ml prefilled syringe (1 source) Low Molecular Weight Heparin Start: 05-29-2022 inject 40 mg by subcutaneous injection once daily 40 mg, SubCUTAneous, DAILY, First dose on Sat05/29/22 at 1500, Until Discontinued Indication of Use: Prophylaxis-DVT/PE glucagon (rdna) 1 mg injection (1 source) Antihypoglycemic Agent Start: 09-06-2019 End: 09-06-2019 glucagon (rDNA) injection 1 mg guaiFENesin 20 mg/ml oral solution (2 sources) Start: 11-24-2021 take 200 mg by mouth every four hours as needed 200 mg, Oral, EVERY 4 HOURS PRN, Starting on Sat05/29/22 at 1436, Until Discontinued, Cough iopamidol (ISOVUE-370) 76 % injection 75 mL (1 source) Start: 06-02-2020 End: 06-02-2020 iopamidol (ISOVUE-370) 76 % injection 75 mL 10 ml lidocaine hydrochloride 10 mg/ml injection (1 source) Antiarrhythmic, Amide Local Anesthetic Start: 07-26-2020 End: 07-26-2020 lidocaine PF 1 % injection loratadine 10 mg oral tablet (17 sources) Start: 02-27-2022 take 1 tablet by mouth once daily loratadine (CLARITIN) 10 MG tablet Indications: Seasonal allergic rhinitis due to pollen Take 1 tablet by mouth daily 30 tablet 5 02/27/2022 Suspended Start: 12-04-2018 take 1 tablet by mary th once daily as needed for congestion loratadine (CLARITIN) 10 MG tablet GIVE 1 TABLET BY MOUTH DAILY NEEDED FOR CONGESTION *CALL PHARMACY FOR REFILLS* 30 tablet 3 12/04/2018 Active meloxicam 15 mg oral tablet (20 sources) Nonsteroidal Anti-inflammatory Drug Start: 05-03-2020 take 15 mg by mouth once daily 15 mg, Oral, DAILY, First dose on Sat05/29/22 at 1500, Until Discontinued Start: 11-10-2019 take 1 tablet by mary th once daily meloxicam (MOBIC) 15 MG tablet Take 1 tablet by mouth daily 90 tablet 1 11/10/2019 Active Start: 05-08-2019 take 1 tablet by mary th once daily meloxicam (MOBIC) 15 MG tablet Take 1 tablet by mouth daily 90 tablet 1 05/08/2019 Active Menthol / Zinc Oxide (3 sources) Menthol-Zinc Oxi de (CALMOSEPTINE EX) Apply topically as needed 0 Suspended Menthol-Zinc Oxi de (CALMOSEPTINE EX) Apply topically as needed 0 Active methylPREDNISolone 125 mg injection (7 sources) Corticosteroid Start: 05-29-2022 End: 05-29-2022 methylPREDNISolone sodium (SOLU-MEDROL) injection 125 mg Start: 12-28-2019 methylPREDNISo lone (MEDROL) 4 MG tablet Indications: Acute bronchitis, unspecified organism TAPER 21 tablet 0 12/28/2019 Active 5 ml metoprolol tartrate 1 mg/ml injection (1 source) beta-Adrenergic Eduard Start: 05-30-2022 End: 05-31-2022 metoprolol (LOPRESSOR) injection 5 mg montelukast 10 mg oral tablet (3 sources) Leukotriene Receptor Antagonist Start: 08-09-2020 End: 07-11-2021 take 1 tablet by mouth once daily montelukast (SINGULAIR) 10 MG tablet Indications: Postnasal drip Take 1 tablet by mouth daily 30 tablet 0 08/09/2020 07/11/2021 Discontinued (Therapy completed) mupirocin 0.02 mg/mg topical ointment (1 source) RNA Synthetase Inhibitor Antibacterial Start: 07-20-2020 End: 07-27-2020 mupirocin (BACTROBAN) 2 % ointment Apply 3 times daily. 1 Tube 0 07/20/2020 07/27/2020 omeprazole 20 mg delayed release oral capsule (8 sources) Proton Pump Inhibitor Start: 06-14-2020 take 1 capsule by mouth twice daily omeprazole (PRILOSEC) 20 MG delayed release capsule Take 1 capsule by mouth 2 times daily 62 capsule 3 06/14/2020 Suspended pantoprazole 40 mg delayed release oral tablet (1 source) Proton Pump Inhibitor Start: 05-29-2022 take 40 mg by mouth twice daily before mealtime 40 mg, Oral, 2 TIMES DAILY BEFORE MEALS, First dose on Sat05/29/22 at 1600, Until Discontinued Do not crush or break. Substituted for Omeprazole (PRILOSEC). pantoprazole (PROTONIX) 40 mg in sodium chloride (PF) 10 mL injection (1 source) Start: 05-29-2022 End: 05-31-2022 pantoprazole (PROTONIX) 40 mg in sodium chloride (PF) 10 mL injection polyethylene glycol 3350 [id number] mg powder for oral solution (10 sources) Osmotic Laxative Start: 05-29-2022 17 g, Oral, DAILY, First dose on Sat05/29/22 at 1500, Until Discontinued Start: 11-12-2018 polyethylene g lycol (GLYCOLAX) packet GIVE 1 POWDER PACK BY MOUTH ONCE DAILY *DISSOLVE IN 4-8 OZ WATER/JUICE SEND WITH CYCLE 90 each 3 11/12/2018 Active simvastatin 80 mg oral tablet (20 sources) HMG-CoA Reductase Inhibitor Start: 06-01-2020 take 1 tablet by mouth once daily in the morning simvastatin (ZOCOR) 80 MG tablet Take 1 tablet by mouth every morning 90 tablet 2 06/01/2020 Suspended Start: 02-02-2020 take 1 tablet by mary th once daily simvastatin (ZOCOR) 80 MG tablet Take 1 tablet by mouth nightly 90 tablet 2 02/02/2020 Active Start: 02-09-2019 take 1 tablet by mary th once daily simvastatin (ZOCOR) 80 MG tablet Take 1 tablet by mouth nightly 90 tablet 3 02/09/2019 Active 5 ml sodium chloride 9 mg/ml injection (4 sources) Start: 05-29-2022 take 1 dose intravenously twice daily 5-40 mL, IntraVENous, EVERY 12 HOURS SCHEDULED (2 times per day), First dose on Sat05/29/22 at 2100, Until Discontinued For Line Patency: Peripheral IV = 5 mL; Midline or Central Line = 10 mL/lumen. If following IV push medication, administer flush at same rate as the IV push. Flush volume is determined by type of infusion therapy being given. For non-viscous solutions use: Peripheral IV = 5 mL Midline or Central Line = 10 mL/lumen For viscous solutions (i.e. blood components, parenteral nutrition, contrast media, or after obtaining blood sample) use: Peripheral IV = 10 mL Midline or Central Line = 20 mL/lumen Start: 05-29-2022 IntraVENous, a t 75 mL/hr, CONTINUOUS, Starting on Sat05/29/22 at 1500 Start: 05-29-2022 take 25 mL intraveno usly every hour as needed 25 mL, IntraVENous, at 100 mL/hr, PRN, If patient receiving piggyback infusions without ordered maintenance IV fluids or with frequent/long duration piggyback infusions, Starting on Sat05/29/22 at 1436 Administer at the same rate as the piggyback being infused. Start: 05-29-2022 take 5-40 mL intrave nously once as needed 5-40 mL, IntraVENous, PRN, Starting on Sat05/29/22 at 1436, Until Discontinued, Line Care, After every IV line use For Line Patency: Peripheral IV = 5 mL; Midline or Central Line = 10 mL/lumen. If following IV push medication, administer flush at same rate as the IV push. Flush volume is determined by type of infusion therapy being given. For non-viscous solutions use: Peripheral IV = 5 mL Midline or Central Line = 10 mL/lumen For viscous solutions (i.e. blood components, parenteral nutrition, contrast media, or after obtaining blood sample) use: Peripheral IV = 10 mL Midline or Central Line = 20 mL/lumen tamsulosin hydrochloride 0.4 mg oral capsule (20 sources) alpha-Adrenergic Eduard Start: 05-03-2020 take 0.4 mg by mouth once daily 0.4 mg, Oral, NIGHTLY, First dose on Sat05/29/22 at 2100, Until Discontinued Do not crush or break. Start: 11-10-2019 take 1 capsule by mo uth once daily tamsulosin (FLOMAX) 0.4 MG capsule Indications: BPH with obstruction/lower urinary tract symptoms Take 1 capsule by mouth nightly Do not crush or break. 90 capsule 1 11/10/2019 Active Start: 05-18-2019 take 1 capsule by mo uth once daily tamsulosin (FLOMAX) 0.4 MG capsule Indications: BPH with obstruction/lower urinary tract symptoms Take 1 capsule by mouth nightly 90 capsule 1 05/18/2019 Active UNABLE TO FIND (20 sources) Start: 06-24-2018 UNABLE TO FIND Indications: Generalized osteoarthritis of multiple sites Shower grab bar Toilet grab bar 1 Device 0 06/24/2018 Suspended Start: 06-24-2018 UNABLE TO FIND Indications: Generalized osteoarthritis of multiple sites Shower grab bar Toilet grab bar 1 Device 0 06/24/2018 Active Start: 05-30-2018 UNABLE TO FIND Apply hydrogen peroxide once or twice daily as needed for skin abrasions. Apply Neosporin once daily as needed for skin abrasions/wound. 1 Act 0 05/30/2018 Suspended Start: 05-30-2018 UNABLE TO FIND Apply hydrogen peroxide once or twice daily as needed for skin abrasions. Apply Neosporin once daily as needed for skin abrasions/wound. 1 Act 0 05/30/2018 Active Start: 02-25-2018 UNABLE TO FIND Indications: Urinary frequency , Primary osteoarthritis of both knees , Obstructive sleep apnea [id number] support stockings fitted Act 0 02/25/2018 Suspended Start: 02-25-2018 UNABLE TO FIND Indications: Urinary frequency , Primary osteoarthritis of both knees , Obstructive sleep apnea Variable height adjustable hospital bed (obstructive sleep apnea and osteoarthritis for positioning) 1 Device 0 02/25/2018 Suspended Start: 02-25-2018 UNABLE TO FIND Indications: Urinary frequency , Primary osteoarthritis of both knees , Obstructive sleep apnea [id number] support stockings fitted Act 0 02/25/2018 Active Start: 02-25-2018 UNABLE TO FIND Indications: Urinary frequency , Primary osteoarthritis of both knees , Obstructive sleep apnea Variable height adjustable hospital bed (obstructive sleep apnea and osteoarthritis for positioning) 1 Device 0 02/25/2018 Active Start: 08-02-2017 UNABLE TO FIND #1. Eucerin cream apply to hands daily. #2 discontinue naproxen and start meloxicam 15 mg daily. #3 silicon ointment/phytoplex applied daily as needed for dermatitis under abdominal folds. Not to be used every day. #4 discontinue Lotrimin cream 1 Act 0 08/02/2017 Suspended Start: 08-02-2017 UNABLE TO FIND #1. Eucerin cream apply to hands daily. #2 discontinue naproxen and start meloxicam 15 mg daily. #3 silicon ointment/phytoplex applied daily as needed for dermatitis under abdominal folds. Not to be used every day. #4 discontinue Lotrimin cream 1 Act 0 08/02/2017 Active Start: 09-07-2016 UNABLE TO FIND Metamucil wafer once daily with breakfast 1 Act 0 09/07/2016 Suspended Start: 09-07-2016 UNABLE TO FIND Metamucil wafer once daily with breakfast 1 Act 0 09/07/2016 Active Start: 09-04-2016 UNABLE TO FIND Lotrimin spray daily or twice daily after showers to abdominal folds., OTC 1 Act 0 09/04/2016 Suspended Start: 09-04-2016 UNABLE TO FIND dietary restrictions include soda beverage only at workshop. And on a special occasion such as . Low carbohydrate diet with smaller portion sizes. Baseline weight 178 pounds/currently 207 pounds. Goal is for gradual weight loss through diet restrictions. 1 Act 0 09/04/2016 Suspended Start: 09-04-2016 UNABLE TO FIND Prescription for shower bar / inability to ambulate, osteoarthritis 1 Device 0 09/04/2016 Suspended Start: 09-04-2016 UNABLE TO FIND Lotrimin spray daily or twice daily after showers to abdominal folds., OTC 1 Act 0 09/04/2016 Active Start: 09-04-2016 UNABLE TO FIND dietary restrictions include soda beverage only at workshop. And on a special occasion such as . Low carbohydrate diet with smaller portion sizes. Baseline weight 178 pounds/currently 207 pounds. Goal is for gradual weight loss through diet restrictions. 1 Act 0 09/04/2016 Active Start: 09-04-2016 UNABLE TO FIND Prescription for shower bar / inability to ambulate, osteoarthritis 1 Device 0 09/04/2016 Active Start: 08-07-2016 UNABLE TO FIND Pull ups for urinary incontinence 1 Device 0 08/07/2016 Suspended Start: 08-07-2016 UNABLE TO FIND Standard manual wheelchair. 1 Device 0 08/07/2016 Suspended Start: 08-07-2016 UNABLE TO FIND Standard manual wheelchair. 1 Device 0 08/07/2016 Active Start: 08-07-2016 UNABLE TO FIND Pull ups for urinary incontinence 1 Device 0 08/07/2016 Active Problems Active Problems Problem Classification Problem Date Documented Date Episodic/Chronic Acute and unspecified renal failure (1 source) Acute kidney failure, unspecified; Translations: [ACUTE KIDNEY FAILURE UNSPECIFIED] Onset: 11-24-2021 Episodic Aspiration pneumonitis; food/vomitus (2 sources) Aspiration pneumonia due to regurgitated gastric secretions; Translations: [Pneumonitis due to inhalation of food and vomit] Onset: 05-29-2022 Episodic Blindness and vision defects (1 source) Unqualified visual loss, left eye, normal vision right eye; Translations: [UNQUALIFIED VISUAL LOSS LT EYE NORM] Onset: 11-24-2021 Chronic Cardiac dysrhythmias (1 source) Bradycardia, unspecified; Translations: [BRADYCARDIA UNSPECIFIED] Onset: 11-28-2021 Episodic Chronic obstructive pulmonary disease and bronchiectasis (1 source) Acute exacerbation of chronic obstructive airways disease; Translations: [Chronic obstructive pulmonary disease with (acute) exacerbation] Chronic Deficiency and other anemia (1 source) Iron deficiency anemia, unspecified; Translations: [IRON DEFICIENCY ANEMIA UNSPECIFIED] Onset: 11-24-2021 Episodic Developmental disorders (1 source) Unspecified intellectual disabilities; Translations: [UNSPEC INTELLECTUAL DISABILITIES] Onset: 11-24-2021 Chronic Disorders of lipid metabolism (20 sources) Hyperlipidemia; Translations: [Mixed hyperlipidemia] Onset: 06-01-2015 06-13-2015 Chronic Esophageal disorders (1 source) Obstruction of esophagus; Translations: [Esophageal obstruction due to food impaction] Chronic Fluid and electrolyte disorders (2 sources) Hyperosmolality and hypernatremia; Translations: [Hypovolemia] Onset: 11-24-2021 Episodic Genitourinary symptoms and ill-defined conditions (20 sources) Mixed urinary incontinence; Translations: [Incontinence] Onset: 05-05-2018 05-05-2018 Chronic Hyperplasia of prostate (20 sources) Benign prostatic hypertrophy with outflow obstruction; Translations: [Benign prostatic hyperplasia with lower urinary tract symptoms] Onset: 05-05-2018 05-05-2018 Chronic Malaise and fatigue (1 source) Malaise and fatigue; Translations: [Malaise and fatigue] Episodic Mood disorders (3 sources) Recurrent major depressive episodes, moderate ; Translations: [Major depressive disorder, recurrent, moderate] Onset: 04-19-2021 04-19-2021 Chronic Nutritional deficiencies (1 source) Moderate protein-calorie malnutrition; Translations: [MODERATE PROTEIN-CALORIE MLNUTRIT] Onset: 11-24-2021 Chronic Osteoarthritis (20 sources) Degenerative joint disease involving multiple joints; Translations: [Primary gonarthrosis, bilateral] Onset: 06-01-2015 12-22-2018 Chronic Other aftercare (1 source) 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; Translations: [OTH PENITENTIARY CURRENT DRUG THERAPY] Onset: 11-24-2021 Episodic Other circulatory disease (1 source) Hypotension, unspecified; Translations: [HYPOTENSION UNSPECIFIED] Onset: 11-24-2021 Episodic Other congenital anomalies (9 sources) Anomaly of chromosome pair 21; Translations: [Down syndrome, unspecified] Onset: 06-10-2020 06-10-2020 Chronic Other congenital anomalies (1 source) Down syndrome, unspecified; Translations: [DOWN SYNDROME UNSPECIFIED] Onset: 11-28-2021 Chronic Other diseases of kidney and ureters (1 source) Other obstructive and reflux uropathy; Translations: [OTHER OBSTRUCTIVE AND REFLUX UROPATHY] Onset: 01-10-2022 Episodic Other ear and sense organ disorders (1 source) Unspecified hearing loss, unspecified ear; Translations: [UNS HEARING LOSS UNSPECIFIED EAR] Onset: 11-24-2021 Chronic Other injuries and conditions due to external causes (1 source) Injury of head; Translations: [Unspecified injury of head, initial encounter] Episodic Other lower respiratory disease (2 sources) Cough; Translations: [Cough] Episodic Other lower respiratory disease (3 sources) Shortness of breath; Translations: [SHORTNESS OF BREATH] Onset: 11-25-2021 Episodic Other lower respiratory disease (2 sources) Hypoxemia; Translations: [HYPOXEMIA] Onset: 05-26-2021 Episodic Pneumonia (except that caused by tuberculosis or sexually transmitted disease) (1 source) Pneumonia (except that caused by tuberculosis or sexually transmitted disease); Translations: [PNEUMONIA D/T CORONAVIRUS DIS 2019] Onset: 11-24-2021 Residual codes; unclassified (1 source) Do not resuscitate; Translations: [DO NOT RESUSCITATE] Onset: 11-28-2021 Episodic Respiratory failure; insufficiency; arrest (adult) (1 source) Acute respiratory failure with hypoxia; Translations: [ACUTE RESPIRATORY FAIL W/HYPOXIA] Onset: 11-24-2021 Episodic Thyroid disorders (12 sources) Goiter; Translations: [Iodine-deficiency related diffuse (endemic) goiter] Onset: 06-10-2020 06-10-2020 Chronic Viral infection (4 sources) COVID-19; Translations: [COVID-19] Onset: 11-18-2021 Past or Other Problems Problem Classification Problem Date Documented Da te Episodic/Chronic Acute bronchitis (1 source) Acute infective bronchitis; Translations: [Acute bronchitis due to other specified organisms] Onset: 02-27-2022 02-27-2022 Episodic Genitourinary symptoms and ill-defined conditions (20 sources) Increased frequency of urination; Translations: [Frequency of micturition] Onset: 05-05-2018 05-05-2018 Episodic Other circulatory disease (20 sources) Choking; Translations: [Unspecified foreign body in larynx causing other injury, initial encounter] Onset: 08-29-2018 08-29-2018 Episodic Other connective tissue disease (10 sources) Weakness of face muscles; Translations: [Facial weakness] Onset: 06-02-2020 06-02-2020 Episodic Other gastrointestinal disorders (20 sources) Constipation; Translations: [Constipation, unspecified] Onset: 06-16-2018 06-16-2018 Episodic Other gastrointestinal disorders (18 sources) Dysphagia; Translations: [Other dysphagia] Onset: 09-21-2019 10-30-2019 Episodic Other lower respiratory disease (1 source) Dyspnea; Translations: [SOB (shortness of breath)] Episodic Other nutritional; endocrine; and metabolic disorders (20 sources) Body mass index 40+ - severely obese; Translations: [Body mass index (BMI) 40.0-44.9, adult] Onset: 09-04-2016 Resolved: 01-11-2021 09-04-2016 Chronic Other screening for suspected conditions (not mental disorders or infectious disease) (5 sources) Patient encounter status; Translations: [Encounter for screening for malignant neoplasm of colon] Onset: 12-21-2013 Resolved: 08-04-2018 08-04-2018 Episodic Other skin disorders (4 sources) Rash and other nonspecific skin eruption; Translations: [RASH OTH NONSPECIFIC SKIN ERUPTION] Onset: 05-16-2021 Episodic Superficial injury; contusion (3 sources) Contusion of right hand; Translations: [Contusion of right hand, initial encounter] Onset: 08-16-2021 Episodic Unclassified (20 sources) Patient encounter status; Translations: [Wellness examination] Onset: 12-21-2013 Resolved: 08-04-2018 2018 Viral infection (5 sources) Other specified viral infection; Translations: [Disease caused by 2019-nCoV] Onset: 08-22-2020 11-01-2020 Episodic Results Test Name Value Interpretation Reference Range Facility Cult, Bloodon 06-03-2022 Cult, Blood Specimen Description .BLOOD Special Requests 5 ML LEFT AC Culture NO GROWTH 5 DAYS Report Status FINAL 06/03/2022 [facility] Comment on above: Performed By: #### B CUL2 #### [facility] [address] [place] [address] [place] [address] Degreaser Operator: Mode Culver MD [facility],Bloodon 06-03-2022 Cult,Blood Specimen Description .BLOOD Special Requests 10ML RT AC Culture NO GROWTH 5 DAYS Report Status FINAL 06/03/2022 [facility] Comment on above: Performed By: #### B C #### [facility] [address] [place] [address] Degreaser Operator: Mode Culver MD Basic Metab w/rfx MGon 05-31 (cont.) [facility] Comment on above: Result Comment: Aver age GFR for 60-69 years old: 85 mL/min/1.73sq m Chronic Kidney Disease: <60 mL/min/1.73sq m Kidney failure: <15 mL/min/1.73sq m eGFR calculated using average adult body mass. Additional eGFR calculator available at: http://www.[employer]kn[employer]/multiple_crcl_2012.htm Performed By: #### B CUL2 #### [facility] [address] [place] [address] Degreaser Operator: Mode Culver MD Anion gap [Moles/Vol] 9 mmol/L Normal 9-17 [facility] Comment on above: Performed By: #### B CUL2 #### [facility] [address] [place] [address] Degreaser Operator: Mode Culver MD BUN/CRE Ratio 17 Normal 9-20 [facility] Comment on above: Performed By: #### B CUL2 #### [facility] [address] [place] [address] Degreaser Operator: Mode Culver MD Calcium [Mass/Vol] 8.8 mg/dL Normal 8.6-10.4 [facility] Comment on above: Performed By: #### B CUL2 #### [facility] [address] [place], [place] [id number] Degreaser Operator: Mode Culver MD Chloride [Moles/Vol] 106 mmol/L Normal 98-107 [facility] Comment on above: Performed By: #### B CUL2 #### [facility] [address] [place] [address] Degreaser Operator: Mode Culver MD CO2 [Moles/Vol] 27 mmol/L Normal 20-31 [facility] Comment on above: Performed By: #### B CUL2 #### [facility] [address] [place] [address] Degreaser Operator: Mode Culver MD Creatinine [Mass/Vol] 0.87 mg/dL Normal 0.70-1.20 [facility] Comment on above: Performed By: #### B CUL2 #### [facility] [address] [place] [address] Degreaser Operator: Mode Culver MD GFR, Amer >60 Normal >60 [facility] Comment on above: Performed By: #### B CUL2 #### [facility] [address] [place], [place] [address]783 Degreaser Operator: Mode Culver MD GFR,non Amer >60 Normal >60 [facility] Comment on above: Performed By: #### B CUL2 #### [facility] [address] [place] [address] Degreaser Operator: Mode Culver MD Glucose [Mass/Vol] 83 mg/dL Normal 70-99 [facility] Comment on above: Performed By: #### B CUL2 #### [facility] [address] [place], [place] [id number] Degreaser Operator: Mode Culver MD Potassium [Moles/Vol] 4.1 mmol/L Normal 3.7-5.3 [facility] Comment on above: Performed By: #### B CUL2 #### [facility] [address] [place], [place] [id number] Degreaser Operator: Mode Culver MD Sodium [Moles/Vol] 142 mmol/L Normal 135-144 [facility] Comment on above: Performed By: #### B CUL2 #### [facility] [address] [place], [place] [id number] Degreaser Operator: Mode Culver MD Staging: Normal [facility] Comment on above: Result Comment: Stag e 1: Some kidney damage normal GFR Stage 2: Mild kidney damage GFR 60-89 Stage 3: Moderate kidney damage GFR 30-59 Stage 4: Severe kidney damage GFR 15-29 Stage 5: Severe kidney damage GFR <15 ESRD - chronic treatment by dialysis or transplant Performed By: #### B CUL2 #### [facility] [address] [place] [address] Degreaser Operator: Mode Culver MD Urea nitrogen [Mass/Vol] 15 mg/dL Normal 8-23 [facility] Comment on above: Performed By: #### B CUL2 #### [facility] [address] [place] [address] Degreaser Operator: Mode Culver MD Basic Metabolic Panel w/ Ref jeremiah to MGon 05-31-2022 Anion gap [Moles/Vol] 9 mmol/L 9 - 17 mmol/L [facility] Calcium [Mass/Vol] 8.8 mg/dL 8.6 - 10. 4 mg/dL [facility] Chloride [Moles/Vol] 106 mmol/L 98 - 107 mmol/L [facility] CO2 [Moles/Vol] 27 mmol/L 20 - 31 mmol/L [facility] Creatinine [Mass/Vol] 0.87 mg/dL 0.7 - 1.2 mg/dL [facility] GFR >60 60 - PINF mL/min [facility] GFR Non- >60 60 - PINF mL/min [facility] Glucose [Mass/Vol] 83 mg/dL 70 - 99 mg/dL [facility] Potassium [Moles/Vol] 4.1 mmol/L 3.7 - 5.3 mmol/L [facility] Sodium [Moles/Vol] 142 mmol/L 135 - 144 mmol/L [facility] Urea nitrogen (BldV) [Mass/Vol] 15 mg/dL 8 - 23 mg/dL [facility] Urea nitrogen/Creatinine (Bld) [Mass ratio] 17 9 - 20 [facility] CBC auto differentialon 05-08 Absolute Eos # 0.08 [facility] Absolute Immature Granulocyte [facility] Absolute Lymph # 0.94 Low [facility] Absolute [place] # 0.51 [facility] Basophils (Bld) [#/Vol] 0.04 10*3/uL [facility] Basophils/100 WBC (Bld) 1 % 0 - 2 % [facility] Eosinophils/100 WBC (Bld) 2 % 1 - 4 % [facility] Hematocrit (Bld) [Volume fraction] 40.9 % 40.7 - 50.3 % [facility] Hemoglobin (Bld) [Mass/Vol] 13.4 g/dL 13 - 17 g/dL [facility] Immature granulocytes/100 WBC (Bld) 0 % 0 [facility] Interpretation and review of laboratory results Abnormal [facility] Lymphocytes/100 WBC (Bld) 22 % Low 24 - 43 % [facility] MCH (RBC) [Entitic mass] 33.6 pg High 25.2 - 33.5 pg [facility] MCHC (RBC) [Mass/Vol] 32.8 g/dL 28.4 - 34.8 g/dL [facility] MCV (RBC) [Entitic vol] 102.5 fL 82.6 - 102.9 fL [facility] Monocytes/100 WBC (Bld) 12 % 3 - 12 % [facility] NRBC Automated 0.0 0.0 per 100 WBC [facility] Platelet distribution width (Bld) [Ratio] 13.4 % 11.8 - 14.4 % [facility] Platelet mean volume (Bld) [Entitic vol] 9.8 fL 8.1 - 13.5 fL [facility] Platelets (Bld) [#/Vol] 149 10*3/uL [facility] RBC (Bld) [#/Vol] 3.99 10*6/uL Low 4.21 - 5.7 7 m/uL [facility] Segmented neutrophils/100 WBC (Bld) 63 % 36 - 65 % [facility] Segs Absolute 2.65 [facility] WBC (Bld) [#/Vol] 4.2 10*3/uL [facility] CBC with Diffon 05-31-2022 Abs. Basophil 0.04 k/uL Normal 0.00-0.20 [facility] Comment on above: Performed By: #### B MPX, CDP #### [address] [place], [place] [id number] Degreaser Operator: Mode Culver MD Abs.Imm.Granulocyte <0.03 Normal 0.00-0.30 [facility] Comment on above: Performed By: #### B MPX, CDP #### [address] [place], [place] [address] Degreaser Operator: Mode Culver MD Abs.Neutrophil (Seg) 2.65 k/uL Normal 1.50-8.10 [facility] Comment on above: Performed By: #### B MPX, CDP #### [address] [place] [address] Degreaser Operator: Mode Culver MD Basophils/100 WBC (Bld) 1 % Normal 0-2 [facility] Comment on above: Performed By: #### B MPX, CDP #### [address] [place], [place] [address] Degreaser Operator: Mode Culver MD Eosinophils (Bld) [#/Vol] 0.08 10*3/uL Normal 0.00-0.44 [facility] Comment on above: Performed By: #### B MPX, CDP #### [address] [place], [facility] Degreaser Operator: Mode Culver MD Eosinophils/100 WBC (Bld) 2 % Normal 1-4 [facility] Comment on above: Performed By: #### B MPX, CDP #### [address] [place] [id number] Degreaser Operator: Mode Culver MD Erythrocyte distribution width (RBC) [Ratio] 13.4 % Normal 11.8-14.4 [facility] Comment on above: Performed By: #### B MPX, CDP #### [address] [place], [facility]83 Degreaser Operator: Mode Culver MD Hematocrit (Bld) [Volume fraction] 40.9 % Normal 40.7-50.3 [facility] Comment on above: Performed By: #### B MPX, CDP #### [facility] [address] [place] [address] Dr. [place], [place] [id number] Degreaser Operator: Mode Culver MD Hemoglobin (Bld) [Mass/Vol] 13.4 g/dL Normal 13.0-17.0 [facility] Comment on above: Performed By: #### B MPX, CDP #### [address] [place], [facility]83 Degreaser Operator: Mode Culver MD Immature granulocytes/100 WBC (Bld) 0 % Normal 0 [facility] Comment on above: Performed By: #### B MPX, CDP #### [facility] [address] [place] [address] Dr. [place], [facility]83 Degreaser Operator: Mode Culver MD Lymphocytes (Bld) [#/Vol] 0.94 10*3/uL Low 1.10-3.70 [facility] Comment on above: Performed By: #### B MPX, CDP #### [address] [place], [facility]83 Degreaser Operator: Mode Culver MD Lymphocytes/100 WBC (Bld) 22 % Low 24-43 [facility] Comment on above: Performed By: #### B MPX, CDP #### [facility] [address] [place] [address] Dr. [place], [facility]83 Degreaser Operator: Mode Culver MD MCH (RBC) [Entitic mass] 33.6 pg High 25.2-33.5 [facility] Comment on above: Performed By: #### B MPX, CDP #### [facility] [address] [place] [address] Dr. [place], [facility]83 Degreaser Operator: Mode Culver MD MCHC (RBC) [Mass/Vol] 32.8 g/dL Normal 28.4-34.8 [facility] Comment on above: Performed By: #### B MPX, CDP #### [facility] [address] [place], [place] [id number] Degreaser Operator: Mode Culver MD MCV (RBC) [Entitic vol] 102.5 fL Normal 82.6-102.9 [facility] Comment on above: Performed By: #### B MPX, CDP #### [facility] [address] [place] [address] Degreaser Operator: Mode Culver MD Monocytes (Bld) [#/Vol] 0.51 10*3/uL Normal 0.10-1.20 [facility] Comment on above: Performed By: #### B MPX, CDP #### [address] [place], [place] [id number] Degreaser Operator: Mode Culver MD Monocytes/100 WBC (Bld) 12 % Normal 3-12 [facility] Comment on above: Performed By: #### B MPX, CDP #### [address] [place], [place] 1654883 Degreaser Operator: Mode Culver MD Neutrophil (Seg) 63 % Normal 36-65 [facility] Comment on above: Performed By: #### B MPX, CDP #### [address] [place], [place] [id number] Degreaser Operator: Mode Culver MD NRBC Automated 0.0 per 100 WBC Normal 0.0 [facility] Comment on above: Performed By: #### B MPX, CDP #### [address] [place], [place] [id number] Degreaser Operator: Mode Culver MD Platelet mean volume (Bld) [Entitic vol] 9.8 fL Normal 8.1-13.5 [facility] Comment on above: Performed By: #### B MPX, CDP #### [facility] [address] [place] [address] Degreaser Operator: Mode Culver MD Platelets (Bld) [#/Vol] 149 10*3/uL Normal 138-453 [facility] Comment on above: Performed By: #### B MPX, CDP #### [facility] [address] [place] [address] Degreaser Operator: Mode Culver MD RBC (Bld) [#/Vol] 3.99 10*6/uL Low 4.21-5.77 [facility] Comment on above: Performed By: #### B MPX, CDP #### [facility] [address] [place] [address] Degreaser Operator: Mode Culver MD WBC (Bld) [#/Vol] 4.2 10*3/uL Normal 3.5-11.3 [facility] Comment on above: Performed By: #### B MPX, CDP #### [facility] [address] [place] [address] Degreaser Operator: Mode Culver MD Laboratory - Chemistry and C hemistry - challengeon 05-31-2022 GFR/1.73 sq M.predicted MDRD (S/P/Bld) [Vol rate/Area] [facility] Comment on above: Average GFR for 60-6 9 years old: 85 mL/min/1.73sq m Chronic Kidney Disease: <60 mL/min/1.73sq m Kidney failure: <15 mL/min/1.73sq m eGFR calculated using average adult body mass. Additional eGFR calculator available at: http://www.[employer]enueJam.com/multiple_crcl_2012.htm Stage 1: Some kidney damage normal GFR Stage 2: Mild kidney damage GFR 60-89 Stage 3: Moderate kidney damage GFR 30-59 Stage 4: Severe kidney damage GFR 15-29 Stage 5: Severe kidney damage GFR <15 ESRD - chronic treatment by dialysis or transplant Basic Metab w/rfx MGon 05-30 (cont.) Normal [facility] Comment on above: Result Comment: Aver age GFR for 60-69 years old: 85 mL/min/1.73sq m Chronic Kidney Disease: <60 mL/min/1.73sq m Kidney failure: <15 mL/min/1.73sq m eGFR calculated using average adult body mass. Additional eGFR calculator available at: http://www.[employer]/multiple_crcl_2011.htm Performed By: #### C DP, BMPX #### [facility] [address] [place] [address] Degreaser Operator: Mode Culver MD Anion gap [Moles/Vol] 1 mmol/L Low 9-17 [facility] Comment on above: Performed By: #### C DP, BMPX #### [facility] [address] [place] [address] Degreaser Operator: Mode Culver MD BUN/CRE Ratio 26 High 9- [facility] Comment on above: Performed By: #### C DP, BMPX #### [address] [place] [address] Degreaser Operator: Mode Culver MD Calcium [Mass/Vol] 8.9 mg/dL Normal 8.6-10.4 [facility] Comment on above: Performed By: #### C DP, BMPX #### [facility] [address] [place], [place] [id number] Degreaser Operator: Mode Culver MD Chloride [Moles/Vol] 106 mmol/L Normal 98-107 [facility] Comment on above: Performed By: #### C DP, BMPX #### [facility] [address] [place] [address] [place] [address] Degreaser Operator: Mode Culver MD CO2 [Moles/Vol] 26 mmol/L Normal - [facility] Comment on above: Performed By: #### C DP, BMPX #### [facility] [address] [place], [place] [id number] Degreaser Operator: Mode Culver MD Creatinine [Mass/Vol] 0.69 mg/dL Low 0.70-1.20 [facility] Comment on above: Performed By: #### C DP, BMPX #### [facility] [address] [place], [place] [phone] Degreaser Operator: Mode Culver MD GFR, Amer >60 Normal >60 [facility] Comment on above: Performed By: #### C DP, BMPX #### [facility] [address] [place], [place] [id number] Degreaser Operator: Mode Culver MD GFR,non Amer >60 Normal >60 [facility] Comment on above: Performed By: #### C DP, BMPX #### [facility] [address] [place], [place] [phone] Degreaser Operator: Mode Culver MD Glucose [Mass/Vol] 145 mg/dL High 70-99 [facility] Comment on above: Performed By: #### C DP, BMPX #### [facility] [address] [place], [place] [id number] Degreaser Operator: Mode Culver MD Potassium [Moles/Vol] 4.4 mmol/L Normal 3.7-5.3 [facility] Comment on above: Performed By: #### C DP, BMPX #### [facility] [address] [place], [place] [phone] Degreaser Operator: Mode Culver MD Sodium [Moles/Vol] 133 mmol/L Low 135-144 [facility] Comment on above: Performed By: #### C DP, BMPX #### [facility] [address] [place], [place] [id number] Degreaser Operator: Mode Culver MD Staging: Normal [facility] Comment on above: Result Comment: Stag e 1: Some kidney damage normal GFR Stage 2: Mild kidney damage GFR 60-89 Stage 3: Moderate kidney damage GFR 30-59 Stage 4: Severe kidney damage GFR 15-29 Stage 5: Severe kidney damage GFR <15 ESRD - chronic treatment by dialysis or transplant Performed By: #### C DP, BMPX #### [facility] [address] [place] [address] Degreaser Operator: Mode Culver MD Urea nitrogen [Mass/Vol] 18 mg/dL Normal 8-23 [facility] Comment on above: Performed By: #### C DP, BMPX #### [facility] [address] [place] [address] Degreaser Operator: Mode Culver MD Basic Metabolic Panel w/ Ref jeremiah to MGon 05-30-2022 Anion gap [Moles/Vol] 1 mmol/L Low 9 - 17 mmol/L [facility] Calcium [Mass/Vol] 8.9 mg/dL 8.6 - 10. 4 mg/dL [facility] Chloride [Moles/Vol] 106 mmol/L 98 - 107 mmol/L [facility] CO2 [Moles/Vol] 26 mmol/L 20 - 31 mmol/L [facility] Creatinine [Mass/Vol] 0.69 mg/dL Low 0.7 - 1.2 mg/dL [facility] GFR >60 60 - PINF mL/min [facility] GFR Non- >60 60 - PINF mL/min [facility] Glucose [Mass/Vol] 145 mg/dL High 70 - 99 mg/dL [facility] Interpretation and review of laboratory results Abnormal [facility] Potassium [Moles/Vol] 4.4 mmol/L 3.7 - 5.3 mmol/L [facility] Sodium [Moles/Vol] 133 mmol/L Low 135 - 144 mmol/L [facility] Urea nitrogen (BldV) [Mass/Vol] 18 mg/dL 8 - 23 mg/dL [facility] Urea nitrogen/Creatinine (Bld) [Mass ratio] 26 High 9 - 20 [facility] CBC auto differentialon 05-08 Absolute Eos # [facility] Absolute Immature Granulocyte 0.05 [facility] Absolute Lymph # 0.56 Low [facility] Absolute [place] # 0.[facility] Basophils Absolute [facility] Basophils/100 WBC (Bld) 0 % 0 - 2 % [facility] Eosinophils/100 WBC (Bld) 0 % Low 1 - 4 % [facility] Hematocrit (Bld) [Volume fraction] 40.8 % 40.7 - 50.3 % [facility] Hemoglobin (Bld) [Mass/Vol] 13.4 g/dL 13 - 17 g/dL [facility] Immature granulocytes/100 WBC (Bld) 1 % High 0 [facility] Interpretation and review of laboratory results Abnormal [facility] Lymphocytes/100 WBC (Bld) 9 % Low 24 - 43 % [facility] MCH (RBC) [Entitic mass] 33.5 pg 25.2 - 33.5 pg [facility] MCHC (RBC) [Mass/Vol] 32.8 g/dL 28.4 - 34.8 g/dL [facility] MCV (RBC) [Entitic vol] 102.0 fL 82.6 - 102.9 fL [facility] Monocytes/100 WBC (Bld) 6 % 3 - 12 % [facility] NRBC Automated 0.0 0.0 per 100 WBC [facility] Platelet distribution width (Bld) [Ratio] 13.2 % 11.8 - 14.4 % [facility] Platelet mean volume (Bld) [Entitic vol] 10.3 fL 8.1 - 13.5 fL [facility] Platelets (Bld) [#/Vol] 180 10*3/uL [facility] RBC (Bld) [#/Vol] 4.00 10*6/uL Low 4.21 - 5.7 7 m/uL [facility] Segmented neutrophils/100 WBC (Bld) 85 % High 36 - 65 % [facility] Segs Absolute 5.41 [facility] WBC (Bld) [#/Vol] 6.4 10*3/uL [facility] CBC with Diffon 05-30-2022 Abs. Basophil <0.03 Normal 0.00-0.20 [facility] Comment on above: Performed By: #### C DP, BMPX #### [facility] [address] [place], [place] [place] [address] Degreaser Operator: Mode Culver MD Abs. Eosinophil <0.03 Normal 0.00-0.44 [facility] Comment on above: Performed By: #### C DP, BMPX #### [facility] [address] [place], [place] [address] Degreaser Operator: Mode Culver MD Abs.Imm.Granulocyte 0.05 k/uL Normal 0.00-0.30 [facility] Comment on above: Performed By: #### C DP, BMPX #### [facility] [address] [place], [facility]83 Degreaser Operator: Mode Culver MD Abs.Neutrophil (Seg) 5.41 k/uL Normal 1.50-8.10 [facility] Comment on above: Performed By: #### C DP, BMPX #### [facility] [address] [place], [place] [id number] Degreaser Operator: Mode Culver MD Basophils/100 WBC (Bld) 0 % Normal 0-2 [facility] Comment on above: Performed By: #### C DP, BMPX #### [facility] [address] [place], [place] [id number] Degreaser Operator: Mode Culver MD Eosinophils/100 WBC (Bld) 0 % Low 1-4 [facility] Comment on above: Performed By: #### C DP, BMPX #### [facility] [address] [place], [facility]83 Degreaser Operator: Mode Culver MD Erythrocyte distribution width (RBC) [Ratio] 13.2 % Normal 11.8-14.4 [facility] Comment on above: Performed By: #### C DP, BMPX #### [address] [place], [place] [address]83 Degreaser Operator: Mode Culver MD Hematocrit (Bld) [Volume fraction] 40.8 % Normal 40.7-50.3 [facility] Comment on above: Performed By: #### C DP, BMPX #### [address] [place], [place] [id number] Degreaser Operator: Mode Culver MD Hemoglobin (Bld) [Mass/Vol] 13.4 g/dL Normal 13.0-17.0 [facility] Comment on above: Performed By: #### C DP, BMPX #### [address] [place], [place] [id number] Degreaser Operator: Mode Culver MD Immature granulocytes/100 WBC (Bld) 1 % High 0 [facility] Comment on above: Performed By: #### C DP, BMPX #### [address] [place], [place] [id number] Degreaser Operator: Mode Culver MD Lymphocytes (Bld) [#/Vol] 0.56 10*3/uL Low 1.10-3.70 [facility] Comment on above: Performed By: #### C DP, BMPX #### [facility] [address] [place] [address] Dr[address] [place], [place] [id number] Degreaser Operator: Mode Culver MD Lymphocytes/100 WBC (Bld) 9 % Low 24-43 [facility] Comment on above: Performed By: #### C DP, BMPX #### [address] [place], [place] 7202783 Degreaser Operator: Mode Culver MD MCH (RBC) [Entitic mass] 33.5 pg Normal 25.2-33.5 [facility] Comment on above: Performed By: #### C DP, BMPX #### [facility] [address] [place] [address] Degreaser Operator: Mode Culver MD MCHC (RBC) [Mass/Vol] 32.8 g/dL Normal 28.4-34.8 [facility] Comment on above: Performed By: #### C DP, BMPX #### [facility] [address] [place], [place] [id number] Degreaser Operator: Mode Culver MD MCV (RBC) [Entitic vol] 102.0 fL Normal 82.6-102.9 [facility] Comment on above: Performed By: #### C DP, BMPX #### [address] [place], [facility]83 Degreaser Operator: Mode Culver MD Monocytes (Bld) [#/Vol] 0.36 10*3/uL Normal 0.10-1.20 [facility] Comment on above: Performed By: #### C DP, BMPX #### [address] [place], [place] [id number] Degreaser Operator: Mode Culver MD Monocytes/100 WBC (Bld) 6 % Normal 3-12 [facility] Comment on above: Performed By: #### C DP, BMPX #### [facility] [address] [place], [facility]83 Degreaser Operator: Mode Culver MD Neutrophil (Seg) 85 % High 36-65 [facility] Comment on above: Performed By: #### C DP, BMPX #### [facility] [address] [place], [place] [id number] Degreaser Operator: Mode Culver MD NRBC Automated 0.0 per 100 WBC Normal 0.0 [facility] Comment on above: Performed By: #### C DP, BMPX #### [facility] [address] [place], [facility]83 Degreaser Operator: Mode Culver MD Platelet mean volume (Bld) [Entitic vol] 10.3 fL Normal 8.1-13.5 [facility] Comment on above: Performed By: #### C DP, BMPX #### [address] [place] [address] Degreaser Operator: Mode Culver MD Platelets (Bld) [#/Vol] 180 10*3/uL Normal 138-453 [facility] Comment on above: Performed By: #### C DP, BMPX #### [address] [place] [id number] Degreaser Operator: Mode Culver MD RBC (Bld) [#/Vol] 4.00 10*6/uL Low 4.21-5.77 [facility] Comment on above: Performed By: #### C DP, BMPX #### [address] [place] [id number] Degreaser Operator: Mode Culver MD WBC (Bld) [#/Vol] 6.4 10*3/uL Normal 3.5-11.3 [facility] Comment on above: Performed By: #### C DP, BMPX #### [address] [place] [id number] Degreaser Operator: Mode Culver MD [place] MODIFIED BARIUM SWALLOW W VIDEOon 05-30-2022 [place] MODIFIED BARIUM SWALLOW W VIDEO EXAMINATION: MODIFIED BARIUM SWALLOW WAS PERFORMED IN CONJUNCTION WITH SPEECH PATHOLOGY SERVICES TECHNIQUE: Fluoroscopic evaluation of the swallowing mechanism was performed using cineradiography with multiple consistency of barium product in conjunction with speech pathology services. FLUOROSCOPY DOSE AND TYPE OR TIME AND EXPOSURES: 0.9 minute fluoro time. 13.52 mGy air kerma. HISTORY: ORDERING SYSTEM PROVIDED HISTORY: Aspiration Pneumonia TECHNOLOGIST PROVIDED HISTORY: Aspiration Pneumonia FINDINGS/ IMPRESSION: Radiologist observations: No identified penetration or aspiration during ingestion of foods and liquids of various consistencies. Please see the speech pathology report for full discussion of the findings and recommendations. Interpreted by: Kristi Christopher MD Signed by: Kristi Christopher MD 05/30/22 Final result Normal [facility] EXAMINATION: MODIFIED BARIUM SWALLOW WAS PERFORMED IN CONJUNCTION WITH SPEECH PATHOLOGY SERVICES TECHNIQUE: Fluoroscopic evaluation of the swallowing mechanism was performed using cineradiography with multiple consistency of barium product in conjunction with speech pathology services. FLUOROSCOPY DOSE AND TYPE OR TIME AND EXPOSURES: 0.9 minute fluoro time. 13.52 mGy air kerma. HISTORY: ORDERING SYSTEM PROVIDED HISTORY: Aspiration Pneumonia TECHNOLOGIST PROVIDED HISTORY: Aspiration Pneumonia FINDINGS/IMPRESSION: Radiologist observations: No identified penetration or aspiration during ingestion of foods and liquids of various consistencies. Please see the speech pathology report for full discussion of the findings and recommendations. [facility] Kristi Christopher MD - 05/30/2022 EXAMINATION: MODIFIED BARIUM SWALLOW WAS PERFORMED IN CONJUNCTION WITH SPEECH PATHOLOGY SERVICES TECHNIQUE: Fluoroscopic evaluation of the swallowing mechanism was performed using cineradiography with multiple consistency of barium product in conjunction with speech pathology services. FLUOROSCOPY DOSE AND TYPE OR TIME AND EXPOSURES: 0.9 minute fluoro time. 13.52 mGy air kerma. HISTORY: ORDERING SYSTEM PROVIDED HISTORY: Aspiration Pneumonia TECHNOLOGIST PROVIDED HISTORY: Aspiration Pneumonia FINDINGS/IMPRESSION: Radiologist observations: No identified penetration or aspiration during ingestion of foods and liquids of various consistencies. Please see the speech pathology report for full discussion of the findings and recommendations. [facility] Work Phone: Radiology Study observation (narrative) [facility] Work Phone: [place] MODIFIED BARIUM SWALLOW W VIDEOOrdered By: Kristi Christopher on 05-30-2022 [facility] Work Phone: Laboratory - Chemistry and C hemistry - challengeon 05-30-2022 GFR/1.73 sq M.predicted MDRD (S/P/Bld) [Vol rate/Area] [facility] Comment on above: Average GFR for 60-6 9 years old: 85 mL/min/1.73sq m Chronic Kidney Disease: <60 mL/min/1.73sq m Kidney failure: <15 mL/min/1.73sq m eGFR calculated using average adult body mass. Additional eGFR calculator available at: http://www.VenueJam.eeGeo/multiple_crcl_2012.htm Stage 1: Some kidney damage normal GFR Stage 2: Mild kidney damage GFR 60-89 Stage 3: Moderate kidney damage GFR 30-59 Stage 4: Severe kidney damage GFR 15-29 Stage 5: Severe kidney damage GFR <15 ESRD - chronic treatment by dialysis or transplant Blood gas, venouson 05-29-20 Kofi Test PASS [facility] HCO3 (Bld) [Moles/Vol] 31.5 mmol/L High 24 - 30 mmol/L [facility] Interpretation and review of laboratory results Abnormal [facility] O2 Device/Flow/% [facility]OM [facility] Oxygen saturation in Blood 55.3 % Low 60 - 85 % [facility] pCO2, Christian 56.4 High 39 - 55 [facility] pH, Christian 7.365 7.32 - 7.42 [facility] pO2, Christian 30.7 30 - 50 [facility] Positive Base Excess, Christian 4.5 mmol/L High 0 - 2 mmol/L [facility] Pt Temp 37.0 [facility] Pt. Position [facility] Sample Site Left Brachial Artery [facility] CBC with Auto Differentialon 05-29-2022 Absolute Eos # 0.26 [facility] Absolute Immature Granulocyte [facility] Absolute Lymph # 0.61 [facility] Absolute [place] # 0.77 [facility] Devtap Basophils (Bld) [#/Vol] 0.06 10*3/uL [facility] Basophils/100 WBC (Bld) 1 % 0 - 2 % [facility] Eosinophils/100 WBC (Bld) 4 % 1 - 4 % [facility] Hematocrit (Bld) [Volume fraction] 44.3 % 40.7 - 50.3 % [facility] Hemoglobin (Bld) [Mass/Vol] 14.0 g/dL 13 - 17 g/dL [facility] Immature granulocytes/100 WBC (Bld) 0 % 0 [facility] Interpretation and review of laboratory results Abnormal [facility] Lymphocytes/100 WBC (Bld) 9 % Low 24 - 43 % [facility] MCH (RBC) [Entitic mass] 33.3 pg 25.2 - 33.5 pg [facility] MCHC (RBC) [Mass/Vol] 31.6 g/dL 28.4 - 34.8 g/dL [facility] MCV (RBC) [Entitic vol] 105.5 fL High 82.6 - 102.9 fL [facility] Monocytes/100 WBC (Bld) 11 % 3 - 12 % [facility] NRBC Automated 0.0 0.0 per 100 WBC [facility] Platelet distribution width (Bld) [Ratio] 13.5 % 11.8 - 14.4 % [facility] Platelet mean volume (Bld) [Entitic vol] 10.3 fL 8.1 - 13.5 fL [facility] Platelets (Bld) [#/Vol] 165 10*3/uL [facility] RBC (Bld) [#/Vol] 4.20 10*6/uL Low 4.21 - 5.7 7 m/uL [facility] Segmented neutrophils/100 WBC (Bld) 75 % High 36 - 65 % [facility] Segs Absolute 5.16 [facility] WBC (Bld) [#/Vol] 6.9 10*3/uL [facility] CBC with Diffon 05-29-2022 Abs. Basophil 0.06 k/uL Normal 0.00-0.20 [facility] Comment on above: Performed By: #### C P, CDP, PT #### [facility] [address] [place] [address] Degreaser Operator: Mode Culver MD Abs.Imm.Granulocyte <0.03 Normal 0.00-0.30 [facility] Comment on above: Performed By: #### C P, CDP, PT #### [facility] [address] [place] [address] Degreaser Operator: Mode Culver MD Abs.Neutrophil (Seg) 5.16 k/uL Normal 1.50-8.10 [facility] Comment on above: Performed By: #### C P, CDP, PT #### [address] [place], [facility]83 Degreaser Operator: Mode Culver MD Basophils/100 WBC (Bld) 1 % Normal 0-2 [facility] Comment on above: Performed By: #### C P, CDP, PT #### [address] [place], [place] [address] Degreaser Operator: Mode Culver MD Eosinophils (Bld) [#/Vol] 0.26 10*3/uL Normal 0.00-0.44 [facility] Comment on above: Performed By: #### C P, CDP, PT #### [address] [place], [facility]83 Degreaser Operator: Mode Culver MD Eosinophils/100 WBC (Bld) 4 % Normal 1-4 [facility] Comment on above: Performed By: #### C P, CDP, PT #### [address] [place], [facility]83 Degreaser Operator: Mode Culver MD Erythrocyte distribution width (RBC) [Ratio] 13.5 % Normal 11.8-14.4 [facility] Comment on above: Performed By: #### C P, CDP, PT #### [address] [place], [facility]83 Degreaser Operator: Mode Culver MD Hematocrit (Bld) [Volume fraction] 44.3 % Normal 40.7-50.3 [facility] Comment on above: Performed By: #### C P, CDP, PT #### [address] [place], [facility]83 Degreaser Operator: Mode Culver MD Hemoglobin (Bld) [Mass/Vol] 14.0 g/dL Normal 13.0-17.0 [facility] Comment on above: Performed By: #### C P, CDP, PT #### [address] [place], [facility]83 Degreaser Operator: Mode Culver MD Immature granulocytes/100 WBC (Bld) 0 % Normal 0 [facility] Comment on above: Performed By: #### C P, CDP, PT #### [address] [place], [facility]83 Degreaser Operator: Mode Culver MD Lymphocytes (Bld) [#/Vol] 0.61 10*3/uL Low 1.10-3.70 [facility] Comment on above: Performed By: #### C P, CDP, PT #### [address] [place], [place] [address] Degreaser Operator: Mode Culver MD Lymphocytes/100 WBC (Bld) 9 % Low 24-43 [facility] Comment on above: Performed By: #### C P, CDP, PT #### [address] [place], [facility]83 Degreaser Operator: Mode Culver MD MCH (RBC) [Entitic mass] 33.3 pg Normal 25.2-33.5 [facility] Comment on above: Performed By: #### C P, CDP, PT #### [address] [place], [facility]83 Degreaser Operator: Mode Culver MD MCHC (RBC) [Mass/Vol] 31.6 g/dL Normal 28.4-34.8 [facility] Comment on above: Performed By: #### C P, CDP, PT #### [address] [place], [place] [id number] Degreaser Operator: Mode Culver MD MCV (RBC) [Entitic vol] 105.5 fL High 82.6-102.9 [facility] Comment on above: Performed By: #### C P, CDP, PT #### [facility] [address] [place], [facility]83 Degreaser Operator: Mode Culver MD Monocytes (Bld) [#/Vol] 0.77 10*3/uL Normal 0.10-1.20 [facility] Comment on above: Performed By: #### C P, CDP, PT #### [address] [place], [facility]83 Degreaser Operator: Mode Culver MD Monocytes/100 WBC (Bld) 11 % Normal 3-12 [facility] Comment on above: Performed By: #### C P, CDP, PT #### [address] [place], [place] [address] Degreaser Operator: Mode Culver MD Neutrophil (Seg) 75 % High 36-65 [facility] Comment on above: Performed By: #### C P, CDP, PT #### [address] [place], [facility]83 Degreaser Operator: Mode Culver MD NRBC Automated 0.0 per 100 WBC Normal 0.0 [facility] Comment on above: Performed By: #### C P, CDP, PT #### [address] [place], [place] [address] Degreaser Operator: Mode Culver MD Platelet mean volume (Bld) [Entitic vol] 10.3 fL Normal 8.1-13.5 [facility] Comment on above: Performed By: #### C P, CDP, PT #### [address] [place] [address] Degreaser Operator: Mode Culver MD Platelets (Bld) [#/Vol] 165 10*3/uL Normal 138-453 [facility] Comment on above: Performed By: #### C P, CDP, PT #### [facility] [address] [place] [address] Degreaser Operator: Mode Culver MD RBC (Bld) [#/Vol] 4.20 10*6/uL Low 4.21-5.77 [facility] Comment on above: Performed By: #### C P, CDP, PT #### [facility] [address] [place] [address] Degreaser Operator: Mode Culver MD WBC (Bld) [#/Vol] 6.9 10*3/uL Normal 3.5-11.3 [facility] Comment on above: Performed By: #### C P, CDP, PT #### [facility] [address] [place] [address] Degreaser Operator: Mode Culver MD [facility] Albumin [Mass/Vol] 3.4 g/dL Low 3.5 - 5.2 g/dL [facility] Albumin/Globulin [Mass ratio] 1.1 {ratio} 1 - 2.5 [facility] ALP (Bld) [Catalytic activity/Vol] 98 U/L 40 - 129 U/L [facility] ALT [Catalytic activity/Vol] 9 U/L 5 - 41 U/L [facility] Anion gap [Moles/Vol] 6 mmol/L Low 9 - 17 mmol/L [facility] AST [Catalytic activity/Vol] 12 U/L NINF - 40 U/L [facility] Bilirubin [Mass/Vol] 0.29 mg/dL Low 0.3 - 1.2 mg/dL [facility] Calcium [Mass/Vol] 9.1 mg/dL 8.6 - 10. 4 mg/dL [facility] Chloride [Moles/Vol] 105 mmol/L 98 - 107 mmol/L [facility] CO2 [Moles/Vol] 31 mmol/L 20 - 31 mmol/L [facility] Creatinine [Mass/Vol] 0.76 mg/dL 0.7 - 1.2 mg/dL [facility] Free PSA/Total PSA [Mass fraction] 6.4 g/dL 6.4 - 8.3 g/dL [facility] GFR >60 60 - PINF mL/min [facility] GFR Non- >60 60 - PINF mL/min [facility] Glucose [Mass/Vol] 103 mg/dL High 70 - 99 mg/dL [facility] Interpretation and review of laboratory results Abnormal [facility] Potassium [Moles/Vol] 4.3 mmol/L 3.7 - 5.3 mmol/L [facility] Sodium [Moles/Vol] 142 mmol/L 135 - 144 mmol/L [facility] Urea nitrogen (BldV) [Mass/Vol] 23 mg/dL 8 - 23 mg/dL [facility] Urea nitrogen/Creatinine (Bld) [Mass ratio] 30 High 9 - 20 [facility] COVID-19, Rapidon 05-29-2022 SARS-CoV-2 (COVID-19) RNA AMELIE+probe Ql (Unsp spec) Not detected Not Detected [facility] Comment on above: Rapid NAAT: The specimen is NEGATIVE for SARS-CoV-2, the novel coronavirus associated with COVID-19. The ID NOW COVID-19 assay is designed to detect the virus that causes COVID-19 in patients with signs and symptoms of infection who are suspected of COVID-19. An individual without symptoms of COVID-19 and who is not shedding SARS-CoV-2 virus would expect to have a negative (not detected) result in this assay. Negative results should be treated as presumptive and, if inconsistent with clinical signs and symptoms or necessary for patient management, should be tested with an alternative molecular assay. Negative results do not preclude SARS-CoV-2 infection and should not be used as the sole basis for patient management decisions. Fact sheet for Healthcare Providers: https://www.fda.gov/media/583132/download Fact sheet for Patients: https://www.fda.gov/media/658279/download Methodology: Isothermal Nucleic Acid Amplification Specimen Description .NASOPHARYNGEAL SWAB [facility] Comp Metabolic Profon 2021 (cont.) Normal [facility] Comment on above: Result Comment: Aver age GFR for 60-69 years old: 85 mL/min/1.73sq m Chronic Kidney Disease: <60 mL/min/1.73sq m Kidney failure: <15 mL/min/1.73sq m eGFR calculated using average adult body mass. Additional eGFR calculator available at: http://www.Appknox/multiple_crcl_2011.htm Performed By: #### C P, CDP, PT #### [facility] [address] [place] [address] [place], [place] [id number] Degreaser Operator: Mode Culver MD Albumin [Mass/Vol] 3.4 g/dL Low 3.5-5.2 [facility] Comment on above: Performed By: #### C P, CDP, PT #### [address] [place], [place] [id number] Degreaser Operator: Mode Culver MD Albumin/Glob Ratio 1.1 Normal 1.0-2.5 [facility] Comment on above: Performed By: #### C P, CDP, PT #### [address] [place], [place] [id number] Degreaser Operator: Mode Culver MD Alkaline Phos 98 U/L Normal 40-129 [facility] Comment on above: Performed By: #### C P, CDP, PT #### [facility] [address] [place] [address] Dr. [place], [place] 7566083 Degreaser Operator: Mode Culver MD ALT [Catalytic activity/Vol] 9 U/L Normal 5-41 [facility] Comment on above: Performed By: #### C P, CDP, PT #### [address] [place] [address] Degreaser Operator: Mode Culver MD Anion gap [Moles/Vol] 6 mmol/L Low 9-17 [facility] Comment on above: Performed By: #### C P, CDP, PT #### [facility] [address] [place], [place] [id number] Degreaser Operator: Mode Culver MD AST [Catalytic activity/Vol] 12 U/L Normal <40 [facility] Comment on above: Performed By: #### C P, CDP, PT #### [facility] [address] [place], [place] 0593883 Degreaser Operator: Mode Culver MD Bilirubin [Mass/Vol] 0.29 mg/dL Low 0.3-1.2 [facility] Comment on above: Performed By: #### C P, CDP, PT #### [address] [place], [place] 5876383 Degreaser Operator: Mode Culver MD BUN/CRE Ratio 30 High 9-20 [facility] Comment on above: Performed By: #### C P, CDP, PT #### [facility] [address] [place] [address] Dr[place], [place] [id number] Degreaser Operator: Mode Culver MD Calcium [Mass/Vol] 9.1 mg/dL Normal 8.6-10.4 [facility] Comment on above: Performed By: #### C P, CDP, PT #### [address] [place], [place] 1209483 Degreaser Operator: Mode Culver MD Chloride [Moles/Vol] 105 mmol/L Normal 98-107 [facility] Comment on above: Performed By: #### C P, CDP, PT #### [facility] [address] [place], [place] 1895683 Degreaser Operator: Mode Culver MD CO2 [Moles/Vol] 31 mmol/L Normal 20-31 [facility] Comment on above: Performed By: #### C P, CDP, PT #### [facility] [address] [place] [address] Dr[address] [place], [place] [id number] Degreaser Operator: Mode Culver MD Creatinine [Mass/Vol] 0.76 mg/dL Normal 0.70-1.20 [facility] Comment on above: Performed By: #### C P, CDP, PT #### [facility] [address] [place] [address] Degreaser Operator: Mode Culver MD GFR, Amer >60 Normal >60 [facility] Comment on above: Performed By: #### C P, CDP, PT #### [facility] [address] [place] [address] Degreaser Operator: Mode Culver MD GFR,non Amer >60 Normal >60 [facility] Comment on above: Performed By: #### C P, CDP, PT #### [facility] [address] [place], [place] [id number] Degreaser Operator: Mode Culver MD Glucose [Mass/Vol] 103 mg/dL High 70-99 [facility] Comment on above: Performed By: #### C P, CDP, PT #### [address] [place], [place] [id number] Degreaser Operator: Mode Culver MD Potassium [Moles/Vol] 4.3 mmol/L Normal 3.7-5.3 [facility] Comment on above: Performed By: #### C P, CDP, PT #### [facility] [address] [place] [address] Dr[address] [place], [place] [id number] Degreaser Operator: Mode Culver MD Protein [Mass/Vol] 6.4 g/dL Normal 6.4-8.3 [facility] Comment on above: Performed By: #### C P, CDP, PT #### [facility] [address] [place] [address] Degreaser Operator: Mode Culver MD Sodium [Moles/Vol] 142 mmol/L Normal 135-144 [facility] Comment on above: Performed By: #### C P, CDP, PT #### [facility] [address] [place] [address] Degreaser Operator: Mode Culver MD Staging: Normal [facility] Comment on above: Result Comment: Stag e 1: Some kidney damage normal GFR Stage 2: Mild kidney damage GFR 60-89 Stage 3: Moderate kidney damage GFR 30-59 Stage 4: Severe kidney damage GFR 15-29 Stage 5: Severe kidney damage GFR <15 ESRD - chronic treatment by dialysis or transplant Performed By: #### C P, CDP, PT #### [facility] [address] [place], [place] [id number] Degreaser Operator: Mode Culver MD Urea nitrogen [Mass/Vol] 23 mg/dL Normal 05-29 [facility] Comment on above: Performed By: #### C P, CDP, PT #### [facility] [address] [place] [address] Degreaser Operator: Mode Culver MD EKG 12 LeadOrdered By: Iesha church on 05-29-2022 Atrial Rate 71 BPM [employer] Phone: P [place] 47 degrees [employer] Phone: P-R Interval 180 ms [employer] Phone: Q-T Interval 404 ms [employer] Phone: QRS Duration 96 ms [employer] Phone: QTc Calculation (Bazett) 439 ms [employer] Phone: R [place] 95 degrees [employer] Phone: T [place] 46 degrees [employer] Phone: Ventricular Rate 71 BPM [facility] Phone: [employer] Phone: EKG 12 Leadon 05-29-2022 Normal sinus rhythm Rightward axis Pulmonary disease pattern Abnormal ECG When compared with ECG of 25-JUL-2017 09:57, Significant changes noted. Confirmed by Iesha Stewart MD ([id number]) on 05/29/2022 7:53:42 PM [facility] Iesha Stewart MD - 05/29/2022 Normal sinus rhythm Rightward axis Pulmonary disease pattern Abnormal ECG When compared with ECG of 25-JUL-2017 09:57, Significant changes noted. Confirmed by Iesha Stewart MD ([id number]) on 05/29/2022 7:53:42 PM [facility] Work Phone: Laboratory - Chemistry and C hemistry - challengeon 05-29-2022 GFR/1.73 sq M.predicted MDRD (S/P/Bld) [Vol rate/Area] [facility] Comment on above: Average GFR for 60-6 9 years old: 85 mL/min/1.73sq m Chronic Kidney Disease: <60 mL/min/1.73sq m Kidney failure: <15 mL/min/1.73sq m eGFR calculated using average adult body mass. Additional eGFR calculator available at: http://www.VenueJam.eeGeo/multiple_crcl_2012.htm Stage 1: Some kidney damage normal GFR Stage 2: Mild kidney damage GFR 60-89 Stage 3: Moderate kidney damage GFR 30-59 Stage 4: Severe kidney damage GFR 15-29 Stage 5: Severe kidney damage GFR <15 ESRD - chronic treatment by dialysis or transplant PTon 05-29-2022 INR Coag (PPP) [Relative time] 1.1 {INR} Normal [facility] Comment on above: Result Comment: Non-therapeutic Range: INR = 0.9-1.2 Therapeutic Range: Moderate Anticoagulant Intensity: INR = 2.0-3.0 High Anticoagulant Intensity: INR = 2.5-3.5 Performed By: #### C P, CDP, PT #### [facility] [address] [place] [address] Degreaser Operator: Mode Culver MD PT Coag (PPP) [Time] 14.0 s Normal 11.5-14.2 [facility] Comment on above: Performed By: #### C P, CDP, PT #### [facility] [address] [place] [address] Degreaser Operator: Mode Culver MD Protime-INRon 05-29-2022 INR Coag (Bld) [Relative time] 1.1 {INR} [facility] Comment on above: Non-therapeutic Range: INR = 0.9-1.2 Therapeutic Range: Moderate Anticoagulant Intensity: INR = 2.0-3.0 High Anticoagulant Intensity: INR = 2.5-3.5 PT Coag (PPP) [Time] 14 s [facility] [id number] 05-29-2022 SARS-CoV-2 (COVID-19) RNA AMELIE+probe Ql (Unsp spec) Not detected Normal NOTDET [facility] Comment on above: Result Comment: Rapid NAAT: The specimen is NEGATIVE for SARS-CoV-2, the novel coronavirus associated with COVID-19. The ID NOW COVID-19 assay is designed to detect the virus that causes COVID-19 in patients with signs and symptoms of infection who are suspected of COVID-19. An individual without symptoms of COVID-19 and who is not shedding SARS-CoV-2 virus would expect to have a negative (not detected) result in this assay. Negative results should be treated as presumptive and, if inconsistent with clinical signs and symptoms or necessary for patient management, should be tested with an alternative molecular assay. Negative results do not preclude SARS-CoV-2 infection and should not be used as the sole basis for patient management decisions. Fact sheet for Healthcare Providers: https://www.fda.gov/media/211747/download Fact sheet for Patients: https://www.fda.gov/media/817037/download Methodology: Isothermal Nucleic Acid Amplification Performed By: #### B CUL2 #### [address] [place] [address] Degreaser Operator: Mode Culver MD Venous Blood Gaseson 022 Kofi Test PASS Normal [facility] Comment on above: Performed By: #### V BG #### [facility] [address] [place] [address] Degreaser Operator: Mode Culver MD Body Temp. 37.0 Normal [facility] Comment on above: Performed By: #### V BG #### [facility] [address] [place], [place] [id number] Degreaser Operator: Mode Culver MD HCO3 (Bld) [Moles/Vol] 31.5 mmol/L High 24.0-30.0 [facility] Comment on above: Performed By: #### V BG #### [facility] [address] [place] [address] Degreaser Operator: Mode Culver MD O2 Device/Flow/% ROOM AIR Normal [facility] Comment on above: Performed By: #### V BG #### [facility] [address] [place] [address] Degreaser Operator: Mode Culver MD Oxygen (Bld) [Partial pressure] 30.7 mm[Hg] Normal 30.0-50.0 [facility] Comment on above: Performed By: #### V BG #### [facility] [address] [place], [place] [id number] Degreaser Operator: Mode Culver MD Oxygen saturation in Blood 55.3 % Low 60.0-85.0 [facility] Comment on above: Performed By: #### V BG #### [facility] [address] [place], [place] [id number] Degreaser Operator: Mode Culver MD pCO2 56.4 High 39-55 [facility] Comment on above: Performed By: #### V BG #### [facility] [address] [place] [address] Degreaser Operator: Mode Culver MD pH (Bld) 7.365 [pH] Normal 7.32-7.42 [facility] Comment on above: Performed By: #### V BG #### [facility] [address] [place] [address] Degreaser Operator: Mode Culver MD Positive Base Excess 4.5 mmol/L High 0.0-2.0 [facility] Comment on above: Performed By: #### V BG #### [facility] [address] [place], [place] [id number] Degreaser Operator: Mode Culver MD Pt. Position SEMI-FOWLERS Normal [facility] Comment on above: Performed By: #### V BG #### [facility] [address] [place] [address] Degreaser Operator: Mode Culver MD Site Drawn Left Brachial Artery Normal [facility] Comment on above: Performed By: #### V BG #### [facility] [address] [place] [address] Degreaser Operator: Mode Culver MD XR CHEST PORTABLEon 05-29-20 XR CHEST PORTABLE EXAMINATION: ONE XRAY VIEW OF THE CHEST 05/29/2022 12:11 pm COMPARISON: AP chest from 12/27/2021 HISTORY: ORDERING SYSTEM PROVIDED HISTORY: Dyspnea wheezing TECHNOLOGIST PROVIDED HISTORY: Dyspnea wheezing History of down syndrome and obesity FINDINGS: Cardiac silhouette prominent but unchanged and WNL in size for AP lordotic technique. Mediastinal structures midline unchanged. Low lung volumes with some cephalization of blood flow, increased perihilar markings and likely bronchial wall thickening. Bandlike opacity medial right base, similar but slightly larger as compared to the previous study. Additional bibasilar opacities. No definite Najma lines. No large pleural effusion or pneumothorax. Bones appear unchanged, again with degenerative findings spine and shoulders. IMPRESSION: Low lung volumes with probable bronchitis and greater bandlike opacity medial right base, either segmental atelectasis/scarring or possibly pneumonia. No radiographic CHF. Interpreted by: Kianna Wyman MD Signed by: Kianna Wyman MD 05/29/22 Final result Normal [facility] Low lung volumes wit h probable bronchitis and greater bandlike opacity medial right base, either segmental atelectasis/scarring or possibly pneumonia. No radiographic CHF. [facility] EXAMINATION: ONE XRAY VIEW OF THE CHEST 05/29/2022 12:11 pm COMPARISON: AP chest from 12/27/2021 HISTORY: ORDERING SYSTEM PROVIDED HISTORY: Dyspnea wheezing TECHNOLOGIST PROVIDED HISTORY: Dyspnea wheezing History of down syndrome and obesity FINDINGS: Cardiac silhouette prominent but unchanged and WNL in size for AP lordotic technique. Mediastinal structures midline unchanged. Low lung volumes with some cephalization of blood flow, increased perihilar markings and likely bronchial wall thickening. Bandlike opacity medial right base, similar but slightly larger as compared to the previous study. Additional bibasilar opacities. No definite Najma lines. No large pleural effusion or pneumothorax. Bones appear unchanged, again with degenerative findings spine and shoulders. [facility] Kianna Wyman MD - 05/29/2022 EXAMINATION: ONE XRAY VIEW OF THE CHEST 05/29/2022 12:11 pm COMPARISON: AP chest from 12/27/2021 HISTORY: ORDERING SYSTEM PROVIDED HISTORY: Dyspnea wheezing TECHNOLOGIST PROVIDED HISTORY: Dyspnea wheezing History of down syndrome and obesity FINDINGS: Cardiac silhouette prominent but unchanged and WNL in size for AP lordotic technique. Mediastinal structures midline unchanged. Low lung volumes with some cephalization of blood flow, increased perihilar markings and likely bronchial wall thickening. Bandlike opacity medial right base, similar but slightly larger as compared to the previous study. Additional bibasilar opacities. No definite Najma lines. No large pleural effusion or pneumothorax. Bones appear unchanged, again with degenerative findings spine and shoulders. IMPRESSION: Low lung volumes with probable bronchitis and greater bandlike opacity medial right base, either segmental atelectasis/scarring or possibly pneumonia. No radiographic CHF. [employer] Phone: Radiology Study observation (narrative) [employer] Phone: XR CHEST PORTABLEOrdered By: Kianna Wyman on 05-29-2022 [employer] Phone: LIPID PROFILEon 01-06-2022 CHOL-HDL RATIO NORM SEE BELOW Normal [facility] Comment on above: Result Comment: 3.3 - 4.4 LOW RISK 4.4 - 7.1 AVERAGE RISK 7.1 - 11.0 MODERATE RISK >11.0 HIGH RISK Performed By: #### T TERESITA, HSTROPN, CRP, CMP #### [facility] [address] [place] [address] Dr. Jarek Barrera Cholesterol [Mass/Vol] 124 mg/dL Normal <=200 [facility] Comment on above: Performed By: #### T TERESITA, HSTROPN, CRP, CMP #### [facility] [address] [address] [address] Jarek Barrera Cholesterol in HDL [Mass/Vol] 42 mg/dL Normal 40-60 [facility] Comment on above: Performed By: #### T TERESITA, HSTROPN, CRP, CMP #### [facility] [address] [place] [address] Dr. Jarek Barrera Cholesterol in LDL [Mass/Vol] 67.6 mg/dL Normal [facility] Comment on above: Performed By: #### T TERESITA, HSTROPN, CRP, CMP #### [facility] [address] [address] [address] Jarek Barrera Cholesterol.total/C holesterol in HDL [Mass ratio] 3.0 {ratio} Normal [facility] Comment on above: Performed By: #### T TERESITA, HSTROPN, CRP, CMP #### [facility] [address] [place] [address] Dr. Jarek Barrera HDL NORMAL > or = 60 mg/dl - LO W CARDIOVASCULAR RISK <40 mg/dl - HIGH CARDIOVASCULAR RISK Normal [facility] Comment on above: Performed By: #### T TERESITA, HSTROPN, CRP, CMP #### [facility] [address] [place] [address] Dr. Jarek Barrera LDL CALC NORMAL SEE BELOW Normal [facility] Comment on above: Result Comment: <100 mg/dl OPTIMAL 100 - 129 mg/dl NEAR OR ABOVE OPTIMAL 130 - 159 mg/dl BORDERLINE HIGH 160 - 189 mg/dl HIGH >190 mg/dl VERY HIGH Performed By: #### T TERESITA, HSTROPN, CRP, CMP #### [facility] [address] [address] [address] Jarek Barrera Triglyceride [Mass/Vol] 72 mg/dL Normal <=150 [facility] Comment on above: Performed By: #### T TERESITA, HSTROPN, CRP, CMP #### [facility] [address] [address] [address] Jarek Barrera VLDL CALC 14.4 mg/dL Normal [facility] Comment on above: Performed By: #### T TERESITA, HSTROPN, CRP, CMP #### [facility] [address] [address] [address] Jarek Barrera PROF 14(COMP METB)on 022 Albumin [Mass/Vol] 2.8 g/dL Critically low 3.4-5.0 [facility] Comment on above: Performed By: #### T TERESITA, HSTROPN, CRP, CMP #### [facility] [address] [address] [address] Jarek Barrera Albumin/Globulin [Mass ratio] 0.7 {ratio} Normal [facility] Comment on above: Performed By: #### T TERESITA, HSTROPN, CRP, CMP #### [facility] [address] [address] [address] Jarek Barrera ALP [Catalytic activity/Vol] 94 U/L Normal 46-116 [facility] Comment on above: Performed By: #### T TERESITA, HSTROPN, CRP, CMP #### [facility] [address] [address] [address] Jarek Barrera ALT [Catalytic activity/Vol] 8 U/L Critically low 16-63 [facility] Comment on above: Performed By: #### T TERESITA, HSTROPN, CRP, CMP #### [facility] [address] [place] [address] Dr. Jarek Barrera Anion gap [Moles/Vol] 10.4 mmol/L Normal [facility] Comment on above: Performed By: #### T TERESITA, HSTROPN, CRP, CMP #### [facility] [address] [address] [address] Jarek Barrera AST [Catalytic activity/Vol] 15 U/L Normal 15-37 [facility] Comment on above: Performed By: #### T TERESITA, HSTROPN, CRP, CMP #### [facility] [address] [address] [address] Jarek Barrera Bilirubin [Mass/Vol] 0.4 mg/dL Normal 0.2-1.3 [facility] Comment on above: Performed By: #### T TERESITA, HSTROPN, CRP, CMP #### [facility] [address] [place] [address] Dr. Jarek Barrera Calcium [Mass/Vol] 8.7 mg/dL Normal 8.5-10.1 [facility] Comment on above: Performed By: #### T TERESITA, HSTROPN, CRP, CMP #### [facility] [address] [place] [address] Dr. Jarek Barrera Chloride [Moles/Vol] 107 mmol/L Normal 98-107 [facility] Comment on above: Performed By: #### T TERESITA, HSTROPN, CRP, CMP #### [facility] [address] [place] [address] Dr. Jarek Barrera CO2 [Moles/Vol] 32.2 mmol/L Critically high 22.0-30.0 [facility] Comment on above: Performed By: #### T TERESITA, HSTROPN, CRP, CMP #### [facility] [address] [place] [address] Dr. Jarek Barrera Creatinine [Mass/Vol] 0.81 mg/dL Normal 0.66-1.25 [facility] Comment on above: Performed By: #### T TERESITA, HSTROPN, CRP, CMP #### [facility] [address] [place] [address] Dr. Jarek Barrera EGFR-AF SYRIAN >60 Normal >=60 [facility] Comment on above: Performed By: #### T TERESITA, HSTROPN, CRP, CMP #### [facility] [address] [address] [address] Jarek Barrera EGFR-NON AF SYRIAN >60 Normal >=60 [facility] Comment on above: Performed By: #### T TERESITA, HSTROPN, CRP, CMP #### [facility] [address] [address] [address] Jarek Barrera Globulin (S) [Mass/Vol] 4.1 g/dL Normal [facility] Comment on above: Performed By: #### T TERESITA, HSTROPN, CRP, CMP #### [facility] [address] [address] [address] Jarek Barrera Glucose [Mass/Vol] 103 mg/dL Normal 74-106 [facility] Comment on above: Performed By: #### T TERESITA, HSTROPN, CRP, CMP #### [facility] [address] [place] [address] Dr. Jarek Barrera Potassium [Moles/Vol] 4.6 mmol/L Normal 3.4-5.0 [facility] Comment on above: Performed By: #### T TERESITA, HSTROPN, CRP, CMP #### [facility] [address] [address] [address] Jarek Barrera Protein [Mass/Vol] 6.9 g/dL Normal 6.1-8.2 [facility] Comment on above: Performed By: #### T TERESITA, HSTROPN, CRP, CMP #### [facility] [address] [address] [address] Jarek Barrera Sodium [Moles/Vol] 145 mmol/L Normal 137-145 [facility] Comment on above: Performed By: #### T TERESITA, HSTROPN, CRP, CMP #### [facility] [address] [place] [address] Dr. Jarek Barrera Urea nitrogen [Mass/Vol] 19.0 mg/dL Critically high 7.0-18.0 [facility] Comment on above: Performed By: #### T TERESITA, HSTROPN, CRP, CMP #### [facility] [address] [address] [address] Jarek Barrera Urea nitrogen/Creatinine [Mass ratio] 23.5 mg/mg Normal [facility] Comment on above: Performed By: #### T TERESITA, HSTROPN, CRP, CMP #### [facility] [address] [place] [address] Dr. Jarek Barrera XR CHEST (SINGLE VIEW FRONTA L)on 12-27-2021 XR CHEST (SINGLE VIEW FRONTAL) EXAMINATION: ONE XRAY VIEW OF THE CHEST 12/27/2021 1:51 pm COMPARISON: Chest x-ray dated 28 April 2020 HISTORY: ORDERING SYSTEM PROVIDED HISTORY: COVID TECHNOLOGIST PROVIDED HISTORY: follow up/post COVID FINDINGS: There is elevation of the right hemidiaphragm. Bandlike airspace opacity in the right lower lobe. Additional patchy right lower lobe airspace disease. The left lung is clear. No pneumothorax or pleural effusion. The cardiomediastinal silhouette is within normal limits. Severe osteoarthritis of the bilateral shoulders. IMPRESSION: Elevation of the right hemidiaphragm with bandlike opacity in the right lower lobe and additional patchy right basilar airspace disease. This could represent atelectasis/scarring/ pneumonia. Correlate clinically and recommend follow-up to resolution. Interpreted by: Jamar Garcia Signed by: Jamar Garcia 12/27/21 Final result Normal [facility] BLOOD GASES BTYon 11-25-2021 02 MODE ROOM AIR Normal [facility] Comment on above: Performed By: #### A BG #### [facility] [address] [place] [address] Dr. Jarek Barrera ALLENIra TEST Positive Normal [facility] Comment on above: Performed By: #### A BG #### [facility] [address] [address] [address] Jarek Barrera Base excess Calc (Bld) [Moles/Vol] 2.9 mmol/L Critically high -2.0-2.0 [facility] Comment on above: Performed By: #### A BG #### [facility] [address] [place] [address] Dr. Jarek Barrera BIPAP PRESSURE Normal [facility] Comment on above: Performed By: #### A BG #### [facility] [address] [address] [address] Jarek Barrera CO2 [Moles/Vol] 28.2 mmol/L Critically high 23.0-28.0 [facility] Comment on above: Performed By: #### A BG #### [facility] [address] [address] [address] Jarek Barrera CPAP Normal [facility] Comment on above: Performed By: #### A BG #### [facility] [address] [address] [address] Jarek Barrera FIO2 [facility] Comment on above: Performed By: #### A BG #### [facility] [address] [address] [address] Jarek Barrera HCO3 (Bld) [Moles/Vol] 27.0 mmol/L Critically high 22.0-26.0 [facility] Comment on above: Performed By: #### A BG #### [facility] [address] [address] [address] Jarek Barrera LPM [facility] Comment on above: Performed By: #### A BG #### [facility] [address] [address] [address] Jarek Barrera MINUTE VOLUME Normal [facility] Comment on above: Performed By: #### A BG #### [facility] [address] [place] [address] Dr. Jarek Barrera Oxygen (Bld) [Partial pressure] 59.3 mm[Hg] Critically low 80.0-100.0 [facility] Comment on above: Performed By: #### A BG #### [facility] [address] [address] [address] Jarek Barrera Oxygen saturation in Blood 91.0 % Critically low 95.0-100.0 [facility] Comment on above: Performed By: #### A BG #### [facility] [address] [address] [address] Jarek Barrera PCO2 39.6 mmHg Normal 35.0-45.0 [facility] Comment on above: Performed By: #### A BG #### [facility] [address] [place] [address] Dr. Jarek Barrera PEEP [facility] Comment on above: Performed By: #### A BG #### [facility] [address] [place] [address] Dr. Jarek Barrera pH (Bld) 7.451 [pH] Critically high 7.350-7.450 [facility] Comment on above: Performed By: #### A BG #### [facility] [address] [place] [address] Dr[address] [facility] Comment on above: Performed By: #### A BG #### [facility] [address] [place] [address] Dr. Jarek Barrera [facility] Comment on above: Performed By: #### A BG #### [facility] [address] [place] [address] Dr. Jarek Barrera PUNCTURE SITE RB [facility] Comment on above: Performed By: #### A BG #### [facility] [address] [place] [address] Dr. Jarek Barrera RATE [facility] Comment on above: Performed By: #### A BG #### [facility] [address] [place] [address] Dr. Jarek Barrera VENT MODE [facility] Comment on above: Performed By: #### A BG #### [facility] [address] [place] [address] Dr. Jarek Barrera [facility] Comment on above: Performed By: #### A BG #### [facility] [address] [place] [address] Dr. Jarek Barrera CARDIAC JESSICA 3-6on 2 CK [Catalytic activity/Vol] 38 U/L Critically low 55-170 [facility] Comment on above: Performed By: #### C MREP #### [facility] [address] [place] [address] Dr. Jarek Barrera CK.MB [Mass/Vol] 0.78 ng/mL Normal <=2.37 [facility] Comment on above: Performed By: #### C MREP #### [facility] [address] [address] [address] Jarek Barrera HSTROP 7.9 pg/mL Normal 4.0-42.2 [facility] Comment on above: Result Comment: CUT- OFF POINTS HAVE BEEN ESTABLISHED BASED ON THE FOURTH UNIVERSAL DEFINITIONS OF MYOCARDIAL INFARCTION. THE UPPER REFERENCE LIMIT (URL) OF TROPONIN, DEFINED THE 99TH PERCENTILE OF cTnI DISTRIBUTION IN A REFERENCE POPULATION, HAS BEEN CONFIRMED THE DECISION THRESHOLD FOR HI DIAGNOSIS. Performed By: #### C MREP #### [facility] [address] [address] [address] Jarek Barrera CK [Catalytic activity/Vol] 28 U/L Critically low 55-170 [facility] Comment on above: Performed By: #### T TERESITA, HSTROPN, CRP, CMP #### [facility] [address] [place] [address] Dr. Jarek Barrera CK.MB [Mass/Vol] 0.66 ng/mL Normal <=2.37 [facility] Comment on above: Performed By: #### T TERESITA, HSTROPN, CRP, CMP #### [facility] [address] [place] [address] Dr. Jarek Barrera HSTROP 10.0 pg/mL Normal 4.0-42.2 [facility] Comment on above: Result Comment: CUT- OFF POINTS HAVE BEEN ESTABLISHED BASED ON THE FOURTH UNIVERSAL DEFINITIONS OF MYOCARDIAL INFARCTION. THE UPPER REFERENCE LIMIT (URL) OF TROPONIN, DEFINED THE 99TH PERCENTILE OF cTnI DISTRIBUTION IN A REFERENCE POPULATION, HAS BEEN CONFIRMED THE DECISION THRESHOLD FOR HI DIAGNOSIS. Performed By: #### T TERESITA, HSTROPN, CRP, CMP #### [facility] [address] [place] [address] Dr. Jarek Barrera CARDIAC JESSICA ADMITon 022 CK [Catalytic activity/Vol] 32 U/L Critically low 55-170 [facility] Comment on above: Performed By: #### T TERESITA, HSTROPN, CRP, CMP #### [facility] [address] [place] [address] Dr. Jarek Barrera CK.MB [Mass/Vol] 0.71 ng/mL Normal <=2.37 [facility] Comment on above: Performed By: #### T TERESITA, HSTROPN, CRP, CMP #### [facility] [address] [place] [address] Dr. Jarek Barrera HSTROP 7.9 pg/mL Normal 4.0-42.2 [facility] Comment on above: Result Comment: CUT- OFF POINTS HAVE BEEN ESTABLISHED BASED ON THE FOURTH UNIVERSAL DEFINITIONS OF MYOCARDIAL INFARCTION. THE UPPER REFERENCE LIMIT (URL) OF TROPONIN, DEFINED THE 99TH PERCENTILE OF cTnI DISTRIBUTION IN A REFERENCE POPULATION, HAS BEEN CONFIRMED THE DECISION THRESHOLD FOR HI DIAGNOSIS. Performed By: #### T TERESITA, HSTROPN, CRP, CMP #### [facility] [address] [place] [address] Dr. Jarek Barrera LEANNE 78.0 ng/mL Normal <=121.0 [facility] Comment on above: Performed By: #### T TERESITA, HSTROPN, CRP, CMP #### [facility] [address] [place] [address] Dr. Jarek Barrera CBC AUTO DIFFon 11-25-2021 BASO # 0.0 103/ul Normal 0.0-0.1 [facility] Comment on above: Performed By: #### C BC #### [facility] [address] [place] [address] Dr. Jarek Barrera Basophils/100 WBC (Bld) 0.1 % Critically low 0.2-2.0 [facility] Comment on above: Performed By: #### C BC #### [facility] [address] [place] [address] Dr. Jarek Barrera EO # 0.1 103/ul Normal 0.0-0.7 [facility] Comment on above: Performed By: #### C BC #### [facility] [address] [place] [address] Dr. Jarek Barrera Eosinophils/100 WBC (Bld) 1.3 % Normal 0.9-7.0 [facility] Comment on above: Performed By: #### C BC #### [facility] [address] [address] [address] Jarek Barrera Erythrocyte distribution width (RBC) [Ratio] 14.7 % Normal 11.0-15.0 [facility] Comment on above: Performed By: #### C BC #### [facility] [address] [place] [address] Dr. Jarek Barrera Hematocrit (Bld) [Volume fraction] 47.0 % Normal 42.0-54.0 [facility] Comment on above: Performed By: #### C BC #### [facility] [address] [place] [address] Dr. Jarek Barrera Hemoglobin (Bld) [Mass/Vol] 14.8 g/dL Normal 14.0-18.0 [facility] Comment on above: Performed By: #### C BC #### [facility] [address] [place] [address] Dr. Jarek Barrera IG # 0.06 10e3/ul Critically high 0.00-0.03 [facility] Comment on above: Performed By: #### C BC #### [facility] [address] [place] [address] Dr. Jarek Barrera IG % 0.7 % Critically high 0.0-0.5 [facility] Comment on above: Performed By: #### C BC #### [facility] [address] [place] [address] Dr. Jarek Barrera LYMPH # 0.8 103/ul Critically low 1.2-3.8 [facility] Comment on above: Performed By: #### C BC #### [facility] [address] [place] [address] Dr. Jarek Barrera Lymphocytes/100 WBC (Bld) 9.7 % Critically low 20.5-60.0 [facility] Comment on above: Performed By: #### C BC #### [facility] [address] [place] [address] Dr. Jarek Barrera MANUAL DIFF REQ NO Normal [facility] Comment on above: Performed By: #### C BC #### [facility] [address] [address] [address] Jarek Barrera MCH (RBC) [Entitic mass] 31.2 pg Normal 25.9-34.0 [facility] Comment on above: Performed By: #### C BC #### [facility] [address] [address] [address] Jarek Barrera MCHC (RBC) [Mass/Vol] 31.5 g/dL Normal 29.9-35.2 [facility] Comment on above: Performed By: #### C BC #### [facility] [address] [address] [address] Jarek Barrera MCV (RBC) [Entitic vol] 99.2 fL Critically high 80.0-94.0 [facility] Comment on above: Performed By: #### C BC #### [facility] [address] [place] [address] Dr. Jarek Barrera MONO # 0.6 103/ul Normal 0.3-0.8 [facility] Comment on above: Performed By: #### C BC #### [facility] [address] [place] [address] Dr. Jarek Barrera Monocytes/100 WBC (Bld) 7.3 % Normal 1.7-12.0 [facility] Comment on above: Performed By: #### C BC #### [facility] [address] [place] [address] Dr. Jarek Barrera NEUT # 6.9 103/ul Critically high 1.4-6.5 [facility] Comment on above: Performed By: #### C BC #### [facility] [address] [place] [address] Dr. Jarek Barrera Neutrophils/100 WBC (Bld) 80.9 % Critically high 43.0-75.0 [facility] Comment on above: Performed By: #### C BC #### [facility] [address] [place] [address] Dr. Jarek Barrera Platelet mean volume (Bld) [Entitic vol] 11.2 fL Normal 9.5-13.5 [facility] Comment on above: Performed By: #### C BC #### [facility] [address] [place], [place] [address] Dr. Jarek Barrera PLT 200 103/ul Normal 150-450 [facility] Comment on above: Performed By: #### C BC #### [facility] [address] [place], [place] [address] Dr. Jarek Barrera RBC 4.74 106/ul Normal 4.70-6.10 [facility] Comment on above: Performed By: #### C BC #### [facility] [address] [place], [place] [address] Dr. Jarek Barrera WBC 8.5 103/ul Normal 4.0-11.0 [facility] Comment on above: Performed By: #### C BC #### [facility] [address] [address] NECK [facility] W CONon [address] W CON INDICATION: 61 years old; Male. Symptom/Location/Dura tion: Shortness of breath and wheezing. Covid positive. TECHNIQUE: CT examination of the neck. Axial, coronal and sagittal reformats were reviewed. 100 mL of Omnipaque 350 was injected intravenously without complication. Ionizing radiation dose reduced via iterative reconstruction/FBP blend and body size kV/mA adjustment. There are breathing artifacts noted in the examination. FINDINGS: AIRWAY: PARANASAL SINUSES AND MASTOID AIR CELLS: There is opacification of the right maxillary sinus. The remaining sinuses are not included in the examination. Mastoid sclerosis is present bilaterally. NASOPHARYNX: Normal in appearance. OROPHARYNX: Normal in appearance. ORAL CAVITY: Normal in appearance. HYPOPHARYNX: Normal in appearance. LARYNX: Normal in appearance. TRACHEA: Patent. SOFT TISSUES: PARAPHARYNGEAL SPACE: Normal and symmetric. CAROTID SPACE: Normal in appearance. RESTAURANT HOST/HOSTESS SPACE: Normal in appearance. RETROPHARYNGEAL SPACE: Normal in appearance. LYMPH NODES: No pathologic adenopathy is appreciated. No matted or necrotic lymph nodes are seen. GLANDS: PAROTID: Normal in appearance. SUBMANDIBULAR: Normal in appearance. THYROID: The thyroid is enlarged with inhomogeneous density. The left lobe is larger than the right. The appearance is most consistent with goiter. Nonemergent thyroid ultrasound would be appropriate. MISCELLANEOUS: LUNG APICES: Please see the CTA of the chest report for evaluation of the pulmonary parenchyma. BONY CERVICAL SPINE: Multilevel cervical spondylosis is appreciated. There is bulky bridging anterior osteophyte formation with pseudoarthrosis along the anterior margins at C4-C5, C5-C6, and C6-C7. There is fusion of C2 and C3. This includes the vertebral bodies and the facets. Degenerative spondylolisthesis is seen at the C3-C4 level. There is subtle loss of height of the superior endplates of T3 and T4. The posterior elements are intact at these levels.. There is generalized disc space narrowing with [id number] appearance from C4 through C7. VISUALIZED BRAIN: A portion of the brain is included in this examination. The visualized right lateral ventricle is enlarged, however the study does not include the entire ventricular system. VISUALIZED GLOBES: Not included in the examination. DENTITION: Multiple missing teeth. Dental caries. OTHER: None. IMPRESSION: 1. Motion artifacts. 2. Airway is patent. 3. Findings consistent with goiter. Nonemergent thyroid ultrasound would be suggested. 4. Multilevel cervical spondylosis. Mild loss of height of the superior endplates of T3 and T4. Correlate with findings in the CTA of the chest. Electronically authenticated by: KRISTI GRIFFIN Date: 2021-11-25 01:54 Normal [facility] CTA CHEST WO W CONon 022 CTA CHEST WO W CON EXAMINATION: CTA CHEST WO W CON HISTORY: SHORTNESS OF BREATH wheezing, Covid 19 COMPARISON: Chest x-ray 11/24/2021 TECHNIQUE: CT angiography of the pulmonary arteries following the administration of 100 mL Omnipaque 350 intravenous contrast. Coronal and sagittal MIP (maximum intensity projection) images were performed. 3-D reconstruction. Dose reduction techniques were achieved by using automated exposure control and/or adjustment of mA and/or kV according to patient size and/or use of iterative reconstruction technique. FINDINGS: No evidence for acute pulmonary embolism from the main to the interlobar level. However, the segmental/subsegmenta l pulmonary arteries are completely obscured by respiratory motion artifact. No thoracic aortic aneurysm or dissection. Small left pleural effusion and mild bibasilar lung subsegmental atelectasis. Central airway patent. Hepatic steatosis. Gallstones. No acute bony abnormality. IMPRESSION: No evidence for acute pulmonary embolism from the main to the interlobar level. However, the segmental/subsegmenta l pulmonary arteries are completely obscured by respiratory motion artifact. Small left pleural effusion and mild bibasilar lung subsegmental atelectasis. Electronically authenticated by: ALEXX FOREMAN Date: 2021-11-25 02:19 Normal [facility] Covid-19 PCR (CVDTBH)on 11-07 SARS-CoV-2 (COVID-19) RNA AMELIE+probe Ql (Unsp spec) Detected Critically abnormal NOT DETECTED [facility] Comment on above: Result Comment: This test is not yet approved or cleared by the [place] Food and Drug Administration (FDA). This test was developed by [facility], [place], [place]. The performance characteristics of this test were validated by [facility]. The results are not intended to be used as the sole means for clinical diagnosis or patient management decisions. [facility] is authorized under Clinical Laboratory Improvement Amendments (CLIA) to perform high- complexity testing. This test is not yet approved or cleared by the [place] FDA. When there are no FDA-approved or cleared tests available, and other criteria are met, FDA can make tests available under an emergency access mechanism called an Emergency Use Authorization (EUA). The EUA for this test is supported by the [place] of Health and Human Service's declaration that circumstances exist to justify the emergency use of in vitro diagnostics for the detection and/or diagnosis of the virus that causes COVID-19. This EUA will remain in effect for the duration of the COVID-19 declaration justifying emergency of IVDs, unless it is terminated or revoked by the FDA (after which the test may no longer be used). Performed By: #### T TERESITA, HSTROPN, CRP, CMP #### [facility] [address] [address] [address] Jarek Barrera LACTATE/LACTIC ACIDon 2021 Lactate [Moles/Vol] 1.5 mmol/L Normal 0.7-2.0 [facility] Comment on above: Performed By: #### T TERESITA, HSTROPN, CRP, CMP #### [facility] [address] [address] [address] Jarek Barrera Lactate [Moles/Vol] 3.0 mmol/L Critically high 0.7-2.0 [facility] Comment on above: Result Comment: test repeated Performed By: #### T TERESITA, HSTROPN, CRP, CMP #### [facility] [address] [place] [address] Dr. Jarek Barrera PROF CHEM 8 (BAS METB)on Anion gap [Moles/Vol] 10.0 mmol/L Normal [facility] Comment on above: Performed By: #### T TERESITA, HSTROPN, CRP, CMP #### [facility] [address] [place] [address] Dr. Jarek Barrera Calcium [Mass/Vol] 8.1 mg/dL Critically low 8.4-10.2 [facility] Comment on above: Performed By: #### T TERESITA, HSTROPN, CRP, CMP #### [facility] [address] [place] [address] Dr. Jarek Barrera Chloride [Moles/Vol] 110 mmol/L Critically high 98-107 [facility] Comment on above: Performed By: #### T TERESITA, HSTROPN, CRP, CMP #### [facility] [address] [place] [address] Dr. Jarek Barrera CO2 [Moles/Vol] 27.7 mmol/L Normal 22.0-30.0 [facility] Comment on above: Performed By: #### T TERESITA, HSTROPN, CRP, CMP #### [facility] [address] [address] [address] Jarek Barrera Creatinine [Mass/Vol] 0.85 mg/dL Normal 0.66-1.25 [facility] Comment on above: Performed By: #### T TERESITA, HSTROPN, CRP, CMP #### [facility] [address] [place] [address] Dr. Jarek Barrera EGFR-AF SYRIAN >60 Normal >=60 [facility] Comment on above: Performed By: #### T TERESITA, HSTROPN, CRP, CMP #### [facility] [address] [place] [address] Dr. Jarek Barrera EGFR-NON AF SYRIAN >60 Normal >=60 [facility] Comment on above: Performed By: #### T TERESITA, HSTROPN, CRP, CMP #### [facility] [address] [address] [address] Jarek Barrera Glucose [Mass/Vol] 141 mg/dL Critically high 74-106 [facility] Comment on above: Performed By: #### T TERESITA, HSTROPN, CRP, CMP #### [facility] [address] [address] [address] Jarek Barrera Potassium [Moles/Vol] 3.7 mmol/L Normal 3.4-5.0 [facility] Comment on above: Performed By: #### T TERESITA, HSTROPN, CRP, CMP #### [facility] [address] [address] [address] Jarek Barrera Sodium [Moles/Vol] 144 mmol/L Normal 137-145 [facility] Comment on above: Performed By: #### T TERESITA, HSTROPN, CRP, CMP #### [facility] [address] [address] [address] Jarek Barrera Urea nitrogen [Mass/Vol] 17.0 mg/dL Normal 9.0-20.0 [facility] Comment on above: Performed By: #### T TERESITA, HSTROPN, CRP, CMP #### [facility] [address] [address] [address] Jarek Barrera Urea nitrogen/Creatinine [Mass ratio] 20.0 mg/mg Normal [facility] Comment on above: Performed By: #### T TERESITA, HSTROPN, CRP, CMP #### [facility] [address] [address] [address] Jarek Barrera XR CHEST 1 Von 11-25-2021 XR CHEST 1 V EXAM: XR CHEST 1 V HISTORY: SHORTNESS OF BREATH COMPARISON: Chest radiograph dated 11/18/2021. TECHNIQUE: One view of the chest was obtained. FINDINGS: The cardiac silhouette is normal in size. There are mild bibasilar airspace opacities with a possible small right pleural effusion. A calcified granuloma is seen in the left upper lung. There is no significant pneumothorax or left pleural effusion. No acute osseous abnormality is seen. IMPRESSION: 1. Small right pleural effusion with bibasilar opacities which could represent atelectasis though aspiration changes and/or pneumonia are also possible. Electronically authenticated by: Tiffanie POWER Date: 2021-11-25 01:17 Normal [facility] CBC AUTO DIFFon 11-22-2021 BASO # 0.0 103/ul Normal 0.0-0.1 [facility] Comment on above: Performed By: #### T TERESITA, HSTROPN, CRP, CMP #### [facility] [address] [place] [address] Dr. Jarek Barrera Basophils/100 WBC (Bld) 0.2 % Normal 0.2-2.0 [facility] Comment on above: Performed By: #### T TERESITA, HSTROPN, CRP, CMP #### [facility] [address] [place] [address] Dr. Jarek Barrera EO # 0.0 103/ul Normal 0.0-0.7 [facility] Comment on above: Performed By: #### T TERESITA, HSTROPN, CRP, CMP #### [facility] [address] [place] [address] Dr. Jarek Barerra Eosinophils/100 WBC (Bld) 0.2 % Critically low 0.9-7.0 [facility] Comment on above: Performed By: #### T TERESITA, HSTROPN, CRP, CMP #### [facility] [address] [place] [address] Dr. Jarek Barrera Erythrocyte distribution width (RBC) [Ratio] 14.6 % Normal 11.0-15.0 [facility] Comment on above: Performed By: #### T TERESITA, HSTROPN, CRP, CMP #### [facility] [address] [place] [address] Dr. Jarek Barrera Hematocrit (Bld) [Volume fraction] 39.3 % Critically low 42.0-54.0 [facility] Comment on above: Performed By: #### T TERESITA, HSTROPN, CRP, CMP #### [facility] [address] [address] [address] Jarek Barrera Hemoglobin (Bld) [Mass/Vol] 12.4 g/dL Critically low 14.0-18.0 [facility] Comment on above: Performed By: #### T TERESITA, HSTROPN, CRP, CMP #### [facility] [address] [address] [address] Jarek Barrera IG # 0.04 10e3/ul Critically high 0.00-0.03 [facility] Comment on above: Performed By: #### T TERESITA, HSTROPN, CRP, CMP #### [facility] [address] [place] [address] Dr. Jarek Barrera IG % 0.6 % Critically high 0.0-0.5 [facility] Comment on above: Performed By: #### T TERESITA, HSTROPN, CRP, CMP #### [facility] [address] [place] [address] Dr. Jarek Barrera LYMPH # 0.9 103/ul Critically low 1.2-3.8 [facility] Comment on above: Performed By: #### T TERESITA, HSTROPN, CRP, CMP #### [facility] [address] [place] [address] Dr. Jarek Barrera Lymphocytes/100 WBC (Bld) 14.2 % Critically low 20.5-60.0 [facility] Comment on above: Performed By: #### T TERESITA, HSTROPN, CRP, CMP #### [facility] [address] [place] [address] Dr. Jarek Barrera MANUAL DIFF REQ NO Normal [facility] Comment on above: Performed By: #### T TERESITA, HSTROPN, CRP, CMP #### [facility] [address] [place] [address] Dr. Jarek Barrera MCH (RBC) [Entitic mass] 31.8 pg Normal 25.9-34.0 [facility] Comment on above: Performed By: #### T TERESITA HSTROPN, CRP, CMP #### [facility] [address] [place] [address] Dr. Jarek Barrera MCHC (RBC) [Mass/Vol] 31.6 g/dL Normal 29.9-35.2 [facility] Comment on above: Performed By: #### T TERESITA, HSTROPN, CRP, CMP #### [facility] [address] [place] [address] Dr. Jarek Barrera MCV (RBC) [Entitic vol] 100.8 fL Critically high 80.0-94.0 [facility] Comment on above: Performed By: #### T TERESITA, HSTROPN, CRP, CMP #### [facility] [address] [place] [address] Dr. Jarek Barrera MONO # 0.6 103/ul Normal 0.3-0.8 [facility] Comment on above: Performed By: #### T TERESITA, HSTROPN, CRP, CMP #### [facility] [address] [place] [address] Dr. Jarek Barrera Monocytes/100 WBC (Bld) 9.3 % Normal 1.7-12.0 [facility] Comment on above: Performed By: #### T TERESITA, HSTROPN, CRP, CMP #### [facility] [address] [place] [address] Dr. Jarek Barrera NEUT # 4.7 103/ul Normal 1.4-6.5 [facility] Comment on above: Performed By: #### T TERESITA, HSTROPN, CRP, CMP #### [facility] [address] [place] [address] Dr. Jarek Barrera Neutrophils/100 WBC (Bld) 75.5 % Critically high 43.0-75.0 [facility] Comment on above: Performed By: #### T TERESITA, HSTROPN, CRP, CMP #### [facility] [address] [place] [address] Dr. Jarek Barrera Platelet mean volume (Bld) [Entitic vol] 12.6 fL Normal 9.5-13.5 [facility] Comment on above: Performed By: #### T TERESITA, HSTROPN, CRP, CMP #### [facility] [address] [address] [address] Jarek Barrera PLT 112 103/ul Critically low 150-450 [facility] Comment on above: Performed By: #### T TERESITA, HSTROPN, CRP, CMP #### [facility] [address] [address] [address] Jarek Barrera RBC 3.90 106/ul Critically low 4.70-6.10 [facility] Comment on above: Performed By: #### T TERESITA, HSTROPN, CRP, CMP #### [facility] [address] [address] [address] Jarek Barrera WBC 6.3 103/ul Normal 4.0-11.0 [facility] Comment on above: Performed By: #### T TERESITA, HSTROPN, CRP, CMP #### [facility] [address] [address] [address] Jarek Barrera PROF 14(COMP METB)on 022 Albumin [Mass/Vol] 1.9 g/dL Critically low 3.5-5.0 [facility] Comment on above: Performed By: #### T TERESITA, HSTROPN, CRP, CMP #### [facility] [address] [place] [address] Dr. Jarek Barrera Albumin/Globulin [Mass ratio] 0.5 {ratio} Normal [facility] Comment on above: Performed By: #### T TERESITA, HSTROPN, CRP, CMP #### [facility] [address] [place] [address] Dr. Jarek Barrera ALP [Catalytic activity/Vol] 56 U/L Normal 38-126 [facility] Comment on above: Performed By: #### T TERESITA, HSTROPN, CRP, CMP #### [facility] [address] [address] [address] Jarek Barrera ALT [Catalytic activity/Vol] 10 U/L Critically low 21-72 [facility] Comment on above: Performed By: #### T TERESITA, HSTROPN, CRP, CMP #### [facility] [address] [address] [address] Jarek Barrera Anion gap [Moles/Vol] 5.4 mmol/L Normal [facility] Comment on above: Performed By: #### T TERESITA, HSTROPN, CRP, CMP #### [facility] [address] [address] [address] Jarek Barrera AST [Catalytic activity/Vol] 21 U/L Normal 17-59 [facility] Comment on above: Performed By: #### T TERESITA, HSTROPN, CRP, CMP #### [facility] [address] [place] [address] Dr. Jarek Barrera Bilirubin [Mass/Vol] 0.3 mg/dL Normal 0.2-1.3 [facility] Comment on above: Performed By: #### T TERESITA, HSTROPN, CRP, CMP #### [facility] [address] [address] [address] Jarek Barrera Calcium [Mass/Vol] 8.0 mg/dL Critically low 8.4-10.2 [facility] Comment on above: Performed By: #### T TERESITA, HSTROPN, CRP, CMP #### [facility] [address] [address] [address] Jarek Barrera Chloride [Moles/Vol] 116 mmol/L Critically high 98-107 [facility] Comment on above: Performed By: #### T TERESITA, HSTROPN, CRP, CMP #### [facility] [address] [address] [address] Jarek Barrera CO2 [Moles/Vol] 28.5 mmol/L Normal 22.0-30.0 [facility] Comment on above: Performed By: #### T TERESITA, HSTROPN, CRP, CMP #### [facility] [address] [address] [address] Jarek Barrera Creatinine [Mass/Vol] 0.83 mg/dL Normal 0.66-1.25 [facility] Comment on above: Performed By: #### T TERESITA, HSTROPN, CRP, CMP #### [facility] [address] [address] [address] Jarek Barrera EGFR-AF SYRIAN >60 Normal >=60 [facility] Comment on above: Performed By: #### T TERESITA, HSTROPN, CRP, CMP #### [facility] [address] [address] [address] Jarek Barrera EGFR-NON AF SYRIAN >60 Normal >=60 [facility] Comment on above: Performed By: #### T TERESITA, HSTROPN, CRP, CMP #### [facility] [address] [address] [address] Jarek Barrera Globulin (S) [Mass/Vol] 3.8 g/dL Normal [facility] Comment on above: Performed By: #### T TERESITA, HSTROPN, CRP, CMP #### [facility] [address] [address] [address] Jarek Barrera Glucose [Mass/Vol] 101 mg/dL Normal 74-106 [facility] Comment on above: Performed By: #### T TERESITA, HSTROPN, CRP, CMP #### [facility] [address] [address] [address] Jarek Barrera Potassium [Moles/Vol] 3.9 mmol/L Normal 3.4-5.0 [facility] Comment on above: Performed By: #### T TERESITA, HSTROPN, CRP, CMP #### [facility] [address] [address] [address] Jarek Barrera Protein [Mass/Vol] 5.7 g/dL Critically low 6.1-8.2 [facility] Comment on above: Performed By: #### T TERESITA, HSTROPN, CRP, CMP #### [facility] [address] [place] [address] Dr. Jarek Barrera Sodium [Moles/Vol] 146 mmol/L Critically high 137-145 [facility] Comment on above: Performed By: #### T TERESITA, HSTROPN, CRP, CMP #### [facility] [address] [place] [address] Dr. Jarek Barrera Urea nitrogen [Mass/Vol] 29.0 mg/dL Critically high 9.0-20.0 [facility] Comment on above: Performed By: #### T TERESITA, HSTROPN, CRP, CMP #### [facility] [address] [place] [address] Dr. Jarek Barrera Urea nitrogen/Creatinine [Mass ratio] 34.9 mg/mg Normal [facility] Comment on above: Performed By: #### T TERESITA, HSTROPN, CRP, CMP #### [facility] [address] [place] [address] Dr. Jarek Barerra CBC AUTO DIFFon 11-21-2021 BASO # 0.0 103/ul Normal 0.0-0.1 [facility] Comment on above: Performed By: #### T TERESITA, HSTROPN, CRP, CMP #### [facility] [address] [place] [address] Dr. Jarek Barrera Basophils/100 WBC (Bld) 0.2 % Normal 0.2-2.0 [facility] Comment on above: Performed By: #### T TERESITA, HSTROPN, CRP, CMP #### [facility] [address] [place] [address] Dr. Jarek Barrera EO # 0.0 103/ul Normal 0.0-0.7 [facility] Comment on above: Performed By: #### T TERESITA, HSTROPN, CRP, CMP #### [facility] [address] [place] [address] Dr. Jarek Barrera Eosinophils/100 WBC (Bld) 0.0 % Critically low 0.9-7.0 [facility] Comment on above: Performed By: #### T TERESITA, HSTROPN, CRP, CMP #### [facility] [address] [place] [address] Dr. Jarek Barrera Erythrocyte distribution width (RBC) [Ratio] 14.6 % Normal 11.0-15.0 [facility] Comment on above: Performed By: #### T TERESITA, HSTROPN, CRP, CMP #### [facility] [address] [place] [address] Dr. Jarek Barrera Hematocrit (Bld) [Volume fraction] 43.5 % Normal 42.0-54.0 [facility] Comment on above: Performed By: #### T TERESITA, HSTROPN, CRP, CMP #### [facility] [address] [place] [address] Dr. Jarek Barrera Hemoglobin (Bld) [Mass/Vol] 13.3 g/dL Critically low 14.0-18.0 [facility] Comment on above: Performed By: #### T TERESITA, HSTROPN, CRP, CMP #### [facility] [address] [place] [address] Dr. Jarek Barrera IG # 0.09 10e3/ul Critically high 0.00-0.03 [facility] Comment on above: Performed By: #### T TERESITA, HSTROPN, CRP, CMP #### [facility] [address] [place] [address] Dr. Jarek Barrera IG % 1.4 % Critically high 0.0-0.5 [facility] Comment on above: Performed By: #### T TERESITA, HSTROPN, CRP, CMP #### [facility] [address] [place] [address] Dr. Jarek Barrera LYMPH # 0.6 103/ul Critically low 1.2-3.8 [facility] Comment on above: Result Comment: man. dif. not rqd. cons. w/ man. dif. from 11/20/21 Performed By: #### T TERESITA, HSTROPN, CRP, CMP #### [facility] [address] [place] [address] Dr. Jarek Barrera Lymphocytes/100 WBC (Bld) 8.6 % Critically low 20.5-60.0 [facility] Comment on above: Performed By: #### T TERESITA, HSTROPN, CRP, CMP #### [facility] [address] [place] [address] Dr. Jarek Barrera MANUAL DIFF REQ NO Normal [facility] Comment on above: Performed By: #### T TERESITA, HSTROPN, CRP, CMP #### [facility] [address] [place] [address] Dr. Jarek Barrera MCH (RBC) [Entitic mass] 31.2 pg Normal 25.9-34.0 [facility] Comment on above: Performed By: #### T TERESITA, HSTROPN, CRP, CMP #### [facility] [address] [place] [address] Dr. Jarek Barrera MCHC (RBC) [Mass/Vol] 30.6 g/dL Normal 29.9-35.2 [facility] Comment on above: Performed By: #### T TERESITA, HSTROPN, CRP, CMP #### [facility] [address] [place] [address] Dr. Jarek Barrera MCV (RBC) [Entitic vol] 102.1 fL Critically high 80.0-94.0 [facility] Comment on above: Performed By: #### T TERESITA, HSTROPN, CRP, CMP #### [facility] [address] [place] [address] Dr. Jarek Barrera MONO # 0.4 103/ul Normal 0.3-0.8 [facility] Comment on above: Performed By: #### T TERESITA, HSTROPN, CRP, CMP #### [facility] [address] [place] [address] Dr. Jarek Barrera Monocytes/100 WBC (Bld) 6.6 % Normal 1.7-12.0 [facility] Comment on above: Performed By: #### T TERESITA, HSTROPN, CRP, CMP #### [facility] [address] [place] [address] Dr. Jarek Barrera NEUT # 5.4 103/ul Normal 1.4-6.5 [facility] Comment on above: Performed By: #### T TERESITA, HSTROPN, CRP, CMP #### [facility] [address] [place] [address] Dr. Jarek Barrera Neutrophils/100 WBC (Bld) 83.2 % Critically high 43.0-75.0 [facility] Comment on above: Performed By: #### T TERESITA, HSTROPN, CRP, CMP #### [facility] [address] [address] [address] Jarek Barrera Platelet mean volume (Bld) [Entitic vol] 11.4 fL Normal 9.5-13.5 [facility] Comment on above: Performed By: #### T TERESITA, HSTROPN, CRP, CMP #### [facility] [address] [address] [address] Jarek Barrera PLT 182 103/ul Normal 150-450 [facility] Comment on above: Performed By: #### T TERESITA, HSTROPN, CRP, CMP #### [facility] [address] [address] [address] Jarek Barrera RBC 4.26 106/ul Critically low 4.70-6.10 [facility] Comment on above: Performed By: #### T TERESITA, HSTROPN, CRP, CMP #### [facility] [address] [place], [place] [address] Dr. Jarek Barrera WBC 6.5 103/ul Normal 4.0-11.0 [facility] Comment on above: Performed By: #### T TERESITA, HSTROPN, CRP, CMP #### [facility] [address] [address] [address] Jarek Barrera ECHOCARDIO M/2D COMPLETEon 0 11-21-2021 ECHOCARDIO M/2D COMPLETE Patient: FER SANDOVAL Exam Date: 11/21/2021 : 1960 Gender:M Ordering : DR. MIKE ARMIJO . Admission #: [id number] Family : DR ORTIZ SINHA . Order #: [id number] CLICK HERE TO VIEW EXAM ECHOCARDIOGRAM REPORT PROCEDURE: CARDIO PULMONARY ECHOCARDIO M/2D COMP INDICATIONS: Shortness of breath, sepsis, Covid pneumonia COMPARISON: None. DESCRIPTION: COMPLETE ECHOCARDIOGRAM Real-time transthoracic echocardiography with 2D, M-mode, spectral and color flow Doppler performed. QUALITY: Technical quality was limited due to patient's condition. LEFT VENTRICLE: Normal chamber size. Normal left ventricular wall thickness. Global left ventricular systolic function is normal. Visual estimation of left ventricular ejection fraction is 55%. LV EF: DIASTOLIC: Normal diastolic function. ATRIAL SEPTUM: LEFT ATRIUM: Normal chamber size. RIGHT ATRIUM: Normal chamber size. RIGHT VENTRICLE: Normal chamber size. Normal right ventricular systolic function. TRICUSPID VALVE: Normal mobility and thickness. No stenosis with trivial regurgitation. No evidence of pulmonary hypertension. RVSP 28mmHg. MITRAL VALVE: Normal mobility and thickness. No mitral valve prolapse. No evidence of mitral valve stenosis. Mild mitral annular calcification. No mitral regurgitation. AORTIC VALVE: Normal trileaflet appearance. No aortic valve stenosis. No aortic regurgitation. AORTIC ROOT: Normal diameter and appearance. PULMONIC VALVE: Not well visualized. PERICARDIUM: No evidence of pericardial effusion. IVC: Collapses with inspirations. Normal size. PLEURA: CONCLUSION: 1. Ventricular systolic function appears normal. 2. Normal diastolic function. 3. No evidence of significant valvular dysfunction. 4. Normal right-sided pressures. 5. Technically difficult study with suboptimal sound transmission and uncooperative patient due to medical condition. Repeat study when the patient is more medically stable is recommended for better assessment. Adult Echocardiography Procedure Report Left Ventricle LVEDD (3.7 - 5.6 cm): 4.60 cm LVESD (2.2 - 4.0 cm): 3.28 cm LVIVS thickness (0.6 - 1.2 cm): 9.45 mm LVPW thickness (0.5 - 1.0 cm): 1.11 cm LVOT Area (cm2): 3.14 cm2 LVOT Diameter 2.00 cm Left Ventricular Ejection Fraction: 55.30 % Left Atrium Left Atrium Systolic Dimension: 3.20 cm Left Atrium Systolic Area(A4C): 12.10 cm2 Left Atrium Systolic Volume(A4C): 87964 mm3 Mitral Valve MV E to A Ratio: 1.30 Deceleration [place]: 2650 mm/s2 Mitral Valve A-Wave Peak Velocity: 66.60 cm/s Mitral Valve E-Wave Peak Velocity: 85.40 cm/s Right Ventricle RV Internal Diastolic Dimension: 3.83 cm Aorta AO Root Diam: 2.90 cm Aortic Valve AoV Area (Peak Umberto): 1.50 cm2 Peak Velocity(Antegrade Flow): 128.00 cm/s Peak Gradient(Antegrade Flow): 7 mm[Hg] Tricuspid Valve Peak Velocity (Regurgitant Flow): 185.00 cm/s Pulmonic Valve Peak Velocity: 134.00 cm/s Peak Gradient: 7 mm[Hg] Right Atrium Dictated by: Eliazar Reid M.D. on 11/21/2021 at 17:40 Approved by: Eliazar Reid M.D. on 11/21/2021 at 17:45 Normal [facility] MAGNESIUMon 11-21-2021 Magnesium [Mass/Vol] 2.6 mg/dL Critically high 1.6-2.3 [facility] Comment on above: Performed By: #### T TERESITA, HSTROPN, CRP, CMP #### [facility] [address] [place] [address] Dr. Jarek Barrera PROF 14(COMP METB)on 022 Albumin [Mass/Vol] 2.0 g/dL Critically low 3.5-5.0 [facility] Comment on above: Performed By: #### T TERESITA, HSTROPN, CRP, CMP #### [facility] [address] [address] [address] Jarek Barrera Albumin/Globulin [Mass ratio] 0.5 {ratio} [facility] Comment on above: Performed By: #### T TERESITA, HSTROPN, CRP, CMP #### [facility] [address] [address] [address] Jarke Barrera ALP [Catalytic activity/Vol] 60 U/L Normal 38-126 [facility] Comment on above: Performed By: #### T TERESITA, HSTROPN, CRP, CMP #### [facility] [address] [address] [address] Jarek Barrera ALT [Catalytic activity/Vol] 12 U/L Critically low 21-72 [facility] Comment on above: Performed By: #### T TERESITA, HSTROPN, CRP, CMP #### [facility] [address] [address] [address] Jarek Barrera Anion gap [Moles/Vol] 6.7 mmol/L Normal [facility] Comment on above: Performed By: #### T TERESITA, HSTROPN, CRP, CMP #### [facility] [address] [address] [address] Jarek Barrera AST [Catalytic activity/Vol] 10 U/L Critically low 17-59 [facility] Comment on above: Performed By: #### T TERESITA, HSTROPN, CRP, CMP #### [facility] [address] [address] [address] Jarek Barrera Bilirubin [Mass/Vol] 0.2 mg/dL Normal 0.2-1.3 [facility] Comment on above: Performed By: #### T TERESITA, HSTROPN, CRP, CMP #### [facility] [address] [address] [address] Jarek Barrera Calcium [Mass/Vol] 8.3 mg/dL Critically low 8.4-10.2 [facility] Comment on above: Performed By: #### T TERESITA, HSTROPN, CRP, CMP #### [facility] [address] [address] [address] Jarek Barrera Chloride [Moles/Vol] 117 mmol/L Critically high 98-107 [facility] Comment on above: Performed By: #### T TERESITA, HSTROPN, CRP, CMP #### [facility] [address] [address] [address] Jarek Barrera CO2 [Moles/Vol] 27.8 mmol/L Normal 22.0-30.0 [facility] Comment on above: Performed By: #### T TERESITA, HSTROPN, CRP, CMP #### [facility] [address] [address] [address] Jarek Barrera Creatinine [Mass/Vol] 1.03 mg/dL Normal 0.66-1.25 [facility] Comment on above: Performed By: #### T TERESITA, HSTROPN, CRP, CMP #### [facility] [address] [place] [address] Dr. Jarek Barrera EGFR-AF SYRIAN >60 Normal >=60 [facility] Comment on above: Performed By: #### T TERESITA, HSTROPN, CRP, CMP #### [facility] [address] [address] [address] Jarek Barrera EGFR-NON AF SYRIAN >60 Normal >=60 [facility] Comment on above: Performed By: #### T TERESITA, HSTROPN, CRP, CMP #### [facility] [address] [address] [address] Jarek Barrera Globulin (S) [Mass/Vol] 4.1 g/dL Normal [facility] Comment on above: Performed By: #### T TERESITA, HSTROPN, CRP, CMP #### [facility] [address] [address] [address] Jarek Barrera Glucose [Mass/Vol] 148 mg/dL Critically high 74-106 [facility] Comment on above: Performed By: #### T TERESITA, HSTROPN, CRP, CMP #### [facility] [address] [address] [address] Jarek Barrera Potassium [Moles/Vol] 3.5 mmol/L Normal 3.4-5.0 [facility] Comment on above: Performed By: #### T TERESITA, HSTROPN, CRP, CMP #### [facility] [address] [address] [address] Jarek Barrera Protein [Mass/Vol] 6.1 g/dL Normal 6.1-8.2 [facility] Comment on above: Performed By: #### T TERESITA, HSTROPN, CRP, CMP #### [facility] [address] [address] [address] Jarek Barrera Sodium [Moles/Vol] 148 mmol/L Critically high 137-145 [facility] Comment on above: Performed By: #### T TERESITA, HSTROPN, CRP, CMP #### [facility] [address] [place] [address] Dr. Jarek Barrera Urea nitrogen [Mass/Vol] 32.0 mg/dL Critically high 9.0-20.0 [facility] Comment on above: Performed By: #### T TERESITA, HSTROPN, CRP, CMP #### [facility] [address] [place] [address] Dr. Jarek Barrera Urea nitrogen/Creatinine [Mass ratio] 31.1 mg/mg Normal [facility] Comment on above: Performed By: #### T TERESITA, HSTROPN, CRP, CMP #### [facility] [address] [place] [address] Dr. Jarek Barrera TSHon 11-21-2021 TSH 3.386 uIU/mL Normal 0.470-4.680 [facility] Comment on above: Performed By: #### T TERESITA, HSTROPN, CRP, CMP #### [facility] [address] [place] [address] Dr. Jarek Barrera TSH RANGE SEE BELOW Normal [facility] Comment on above: Result Comment: <0.3 4 UIU/ml HYPERTHYROID 0.34-5.60 UIU/ml EUTHYROID >5.60 UIU/ml HYPOTHYROID Performed By: #### T TERESITA, HSTROPN, CRP, CMP #### [facility] [address] [place] [address] Dr. Jarek Barrera CBC W MANUAL DIFFon 11-20-19 22 ATYPICAL LYMPH # Normal [facility] Comment on above: Performed By: #### T TERESITA, HSTROPN, CRP, CMP #### [facility] [address] [place] [address] Dr. Jarek Barrera ATYPICAL LYMPH % Normal [facility] Comment on above: Performed By: #### T TERESITA, HSTROPN, CRP, CMP #### [facility] [address] [place] [address] Dr. Jarek Barrera BAND # 0.1 103/ul Normal 0.0-0.3 [facility] Comment on above: Performed By: #### T TERESITA, HSTROPN, CRP, CMP #### [facility] [address] [place] [address] Dr. Jarek Barrera BAND % 2 % Normal 0-5 [facility] Comment on above: Performed By: #### T TERESITA, HSTROPN, CRP, CMP #### [facility] [address] [address] [address] Jarek Barrera BASOM # 0.07 103/ul Normal 0.00-0.10 [facility] Comment on above: Performed By: #### T TERESITA, HSTROPN, CRP, CMP #### [facility] [address] [address] [address] Jarek Barrera BASOM % 1.0 % Normal 0.2-2.0 [facility] Comment on above: Performed By: #### T TERESITA, HSTROPN, CRP, CMP #### [facility] [address] [address] [address] Jarek Barrera BLAST # Normal [facility] Comment on above: Performed By: #### T TERESITA, HSTROPN, CRP, CMP #### [facility] [address] [address] [address] Jarek Barrera BLAST % Normal [facility] Comment on above: Performed By: #### T TERESITA, HSTROPN, CRP, CMP #### [facility] [address] [address] [address] Jarek Barrera CORRECTED WBC Normal 4.0-11.0 [facility] Comment on above: Performed By: #### T TERESITA, HSTROPN, CRP, CMP #### [facility] [address] [address] [address] Jarek Barrera EOS # 0.00 103/ul Normal 0.00-0.70 [facility] Comment on above: Performed By: #### T TERESITA, HSTROPN, CRP, CMP #### [facility] [address] [address] [address] Jarek Barrera EOS% 0.0 % Critically low 0.9-7.0 [facility] Comment on above: Performed By: #### T TERESITA, HSTROPN, CRP, CMP #### [facility] [address] [address] [address] Jarek Barrera HCT 39.2 % Critically low 42.0-54.0 [facility] Comment on above: Performed By: #### T TERESITA, HSTROPN, CRP, CMP #### [facility] [address] [address] [address] Jarek Barrera HGB 12.2 g/dl Critically low 14.0-18.0 [facility] Comment on above: Performed By: #### T TERESITA, HSTROPN, CRP, CMP #### [facility] [address] [address] [address] Jarek Barrera LYMPHM # 0.70 103/ul Critically low 1.20-3.80 [facility] Comment on above: Performed By: #### T TERESITA, HSTROPN, CRP, CMP #### [facility] [address] [address] [address] Jarek Barrera LYMPHM% 10.0 % Critically low 20.5-60.0 [facility] Comment on above: Performed By: #### T TERESITA, HSTROPN, CRP, CMP #### [facility] [address] [address] [address] Jarek Barrera MCH 31.5 pg Normal 25.9-34.0 [facility] Comment on above: Performed By: #### T TERESITA, HSTROPN, CRP, CMP #### [facility] [address] [address] [address] Jarek Barrera MCHC 31.1 g/dl Normal 29.9-35.2 [facility] Comment on above: Performed By: #### T TERESITA, HSTROPN, CRP, CMP #### [facility] [address] [address] [address] Jarek Barrera MCV 101.3 fL Critically high 80.0-94.0 [facility] Comment on above: Performed By: #### T TERESITA, HSTROPN, CRP, CMP #### [facility] [address] [address] [address] Jarek Barrera METAMYELOCYTE # Normal [facility] Comment on above: Performed By: #### T TERESITA, HSTROPN, CRP, CMP #### [facility] [address] [address] [address] Jarek Barrera METAMYELOCYTE % Normal [facility] Comment on above: Performed By: #### T TERESITA, HSTROPN, CRP, CMP #### [facility] [address] [address] [address] Jarek Barrera MONOM# 0.14 103/ul Critically low 0.30-0.80 [facility] Comment on above: Performed By: #### T TERESITA, HSTROPN, CRP, CMP #### [facility] [address] [address] [address] Jarek Barrera MONOM% 2.0 % Normal 1.7-12.0 [facility] Comment on above: Performed By: #### T TERESITA, HSTROPN, CRP, CMP #### [facility] [address] [address] [address] Jarek Barrera MPV 11.5 fL Normal 9.5-13.5 [facility] Comment on above: Performed By: #### T TERESITA, HSTROPN, CRP, CMP #### [facility] [address] [address] [address] Jarek Barrera MYELOCYTE # Normal [facility] Comment on above: Performed By: #### T TERESITA, HSTROPN, CRP, CMP #### [facility] [address] [address] [address] Jarek Barrera MYELOCYTE % Normal [facility] Comment on above: Performed By: #### T TERESITA, HSTROPN, CRP, CMP #### [facility] [address] [address] [address] Jarek Barrera NRBC Normal [facility] Comment on above: Performed By: #### T TERESITA, HSTROPN, CRP, CMP #### [facility] [address] [address] [address] Jarek Barrera PLT 180 103/ul Normal 150-450 [facility] Comment on above: Performed By: #### T TERESITA, HSTROPN, CRP, CMP #### [facility] [address] [address] [address] Jarek Barrera RBC 3.87 106/ul Critically low 4.70-6.10 [facility] Comment on above: Performed By: #### T TERESITA, HSTROPN, CRP, CMP #### [facility] [address] [address] [address] Jarek Barrera RDW 14.6 % Normal 11.0-15.0 [facility] Comment on above: Performed By: #### T TERESITA, HSTROPN, CRP, CMP #### [facility] [address] [place] [address] Dr. Jarek Barrera SEG # 5.95 103/ul Normal 1.40-6.50 [facility] Comment on above: Performed By: #### T TERESITA, HSTROPN, CRP, CMP #### [facility] [address] [place] [address] Dr. Jarek Barrera SEG % 85.0 % Critically high 43.0-75.0 [facility] Comment on above: Performed By: #### T TERESITA, HSTROPN, CRP, CMP #### [facility] [address] [place] [address] Dr. Jarek Barrera WBC 7.0 103/ul Normal 4.0-11.0 [facility] Comment on above: Performed By: #### T TERESITA, HSTROPN, CRP, CMP #### [facility] [address] [place] [address] Dr. Jarek Barrera CRPon 11-20-2021 CRP 3.4 mg/dL Critically high <=1.0 [facility] Comment on above: Performed By: #### T TERESITA, HSTROPN, CRP, CMP #### [facility] [address] [place] [address] Dr. Jarek Barrera PROF 14(COMP METB)on 022 Albumin [Mass/Vol] 2.0 g/dL Critically low 3.5-5.0 Th [facility] Comment on above: Performed By: #### T TERESITA, HSTROPN, CRP, CMP #### [facility] [address] [address] [address] Jarek Barrera Albumin/Globulin [Mass ratio] 0.5 {ratio} Normal [facility] Comment on above: Performed By: #### T TERESITA, HSTROPN, CRP, CMP #### [facility] [address] [place] [address] Dr. Jarek Barrera ALP [Catalytic activity/Vol] 69 U/L Normal 38-126 [facility] Comment on above: Performed By: #### T TERESITA, HSTROPN, CRP, CMP #### [facility] [address] [place] [address] Dr. Jarek Barrera ALT [Catalytic activity/Vol] 12 U/L Critically low 21-72 [facility] Comment on above: Performed By: #### T TERESITA, HSTROPN, CRP, CMP #### [facility] [address] [place] [address] Dr. Jarek Barrera Anion gap [Moles/Vol] 8.8 mmol/L Normal [facility] Comment on above: Performed By: #### T TERESITA, HSTROPN, CRP, CMP #### [facility] [address] [place] [address] Dr. Jarek Barrera AST [Catalytic activity/Vol] 20 U/L Normal 17-59 [facility] Comment on above: Performed By: #### T TERESITA, HSTROPN, CRP, CMP #### [facility] [address] [address] [address] Jarek Barrera Bilirubin [Mass/Vol] 0.2 mg/dL Normal 0.2-1.3 [facility] Comment on above: Performed By: #### T TERESITA, HSTROPN, CRP, CMP #### [facility] [address] [place] [address] Dr. Jarek Barrera Calcium [Mass/Vol] 8.4 mg/dL Normal 8.4-10.2 [facility] Comment on above: Performed By: #### T TERESITA, HSTROPN, CRP, CMP #### [facility] [address] [address] [address] Jarek Barrera Chloride [Moles/Vol] 119 mmol/L Critically high 98-107 [facility] Comment on above: Performed By: #### T TERESITA, HSTROPN, CRP, CMP #### [facility] [address] [address] [address] Jarek Barrera CO2 [Moles/Vol] 26.6 mmol/L Normal 22.0-30.0 [facility] Comment on above: Performed By: #### T TERESITA, HSTROPN, CRP, CMP #### [facility] [address] [address] [address] Jarek Barrera Creatinine [Mass/Vol] 0.80 mg/dL Normal 0.66-1.25 [facility] Comment on above: Performed By: #### T TERESITA, HSTROPN, CRP, CMP #### [facility] [address] [place] [address] Dr. Jarek Barrera EGFR-AF SYRIAN >60 Normal >=60 [facility] Comment on above: Performed By: #### T TERESITA, HSTROPN, CRP, CMP #### [facility] [address] [place] [address] Dr. Jarek Barrera EGFR-NON AF SYRIAN >60 Normal >=60 [facility] Comment on above: Performed By: #### T TERESITA, HSTROPN, CRP, CMP #### [facility] [address] [address] [address] Jarek Barrera Globulin (S) [Mass/Vol] 4.4 g/dL Normal [facility] Comment on above: Performed By: #### T TERESITA, HSTROPN, CRP, CMP #### [facility] [address] [address] [address] Jarek Barrera Glucose [Mass/Vol] 166 mg/dL Critically high 74-106 [facility] Comment on above: Performed By: #### T TERESITA, HSTROPN, CRP, CMP #### [facility] [address] [place] [address] Dr. Jarek Barrera Potassium [Moles/Vol] 3.4 mmol/L Normal 3.4-5.0 [facility] Comment on above: Performed By: #### T TERESITA, HSTROPN, CRP, CMP #### [facility] [address] [place] [address] Dr. Jarek Barrera Protein [Mass/Vol] 6.4 g/dL Normal 6.1-8.2 [facility] Comment on above: Performed By: #### T TERESITA, HSTROPN, CRP, CMP #### [facility] [address] [address] [address] Jarek Barrera Sodium [Moles/Vol] 151 mmol/L Critically high 137-145 [facility] Comment on above: Performed By: #### T TERESITA, HSTROPN, CRP, CMP #### [facility] [address] [place] [address] Dr. Jarek Barrera Urea nitrogen [Mass/Vol] 33.0 mg/dL Critically high 9.0-20.0 [facility] Comment on above: Performed By: #### T TERESITA, HSTROPN, CRP, CMP #### [facility] [address] [address] [address] Jarek Barrera Urea nitrogen/Creatinine [Mass ratio] 41.2 mg/mg Normal [facility] Comment on above: Performed By: #### T TERESITA, HSTROPN, CRP, CMP #### [facility] [address] [place] [address] Dr. Jarek Barrera THEOPHYLLINEon 11-20-2021 THEOPHYLLINE 11.4 ug/mL Normal 8.0-20.0 [facility] Comment on above: Performed By: #### T TERESITA, HSTROPN, CRP, CMP #### [facility] [address] [place] [address] Dr. Jarek Barrera TROPONIN, HIGH SENSITIVITYon 11-20-2021 HSTROP 11.3 pg/mL Normal 4.0-42.2 [facility] Comment on above: Result Comment: CUT- OFF POINTS HAVE BEEN ESTABLISHED BASED ON THE FOURTH UNIVERSAL DEFINITIONS OF MYOCARDIAL INFARCTION. THE UPPER REFERENCE LIMIT (URL) OF TROPONIN, DEFINED THE 99TH PERCENTILE OF cTnI DISTRIBUTION IN A REFERENCE POPULATION, HAS BEEN CONFIRMED THE DECISION THRESHOLD FOR HI DIAGNOSIS. Performed By: #### T TERESITA, HSTROPN, CRP, CMP #### [facility] [address] [place] [address] Dr. Jarek Barrera CBC AUTO DIFFon 11-19-2021 BASO # 0.0 103/ul Normal 0.0-0.1 [facility] Comment on above: Performed By: #### T TERESITA, HSTROPN, CRP, CMP #### [facility] [address] [place] [address] Dr. Jarek Barrera Basophils/100 WBC (Bld) 0.2 % Normal 0.2-2.0 [facility] Comment on above: Performed By: #### T TERESITA, HSTROPN, CRP, CMP #### [facility] [address] [place] [address] Dr. Jarek Barrera EO # 0.0 103/ul Normal 0.0-0.7 [facility] Comment on above: Performed By: #### T TERESITA, HSTROPN, CRP, CMP #### [facility] [address] [place] [address] Dr. Jarek Barrera Eosinophils/100 WBC (Bld) 0.0 % Critically low 0.9-7.0 [facility] Comment on above: Performed By: #### T TERESITA, HSTROPN, CRP, CMP #### [facility] [address] [place] [address] Dr. Jarek Barrera Erythrocyte distribution width (RBC) [Ratio] 15.1 % Critically high 11.0-15.0 [facility] Comment on above: Performed By: #### T TERESITA, HSTROPN, CRP, CMP #### [facility] [address] [place] [address] Dr. Jarek Barrera Hematocrit (Bld) [Volume fraction] 42.3 % Normal 42.0-54.0 [facility] Comment on above: Performed By: #### T TERESITA, HSTROPN, CRP, CMP #### [facility] [address] [address] [address] Jarek Barrera Hemoglobin (Bld) [Mass/Vol] 12.7 g/dL Critically low 14.0-18.0 [facility] Comment on above: Result Comment: Flui ds given Performed By: #### T TERESITA, HSTROPN, CRP, CMP #### [facility] [address] [address] [address] Jarek Barrera IG # 0.05 10e3/ul Critically high 0.00-0.03 [facility] Comment on above: Performed By: #### T TERESITA, HSTROPN, CRP, CMP #### [facility] [address] [address] [address] Jarek Barrera IG % 0.6 % Critically high 0.0-0.5 [facility] Comment on above: Performed By: #### T TERESITA, HSTROPN, CRP, CMP #### [facility] [address] [place] [address] Dr. Jarek Barrera LYMPH # 0.5 103/ul Critically low 1.2-3.8 [facility] Comment on above: Performed By: #### T TERESITA, HSTROPN, CRP, CMP #### [facility] [address] [address] [address] Jarek Barrera Lymphocytes/100 WBC (Bld) 6.1 % Critically low 20.5-60.0 [facility] Comment on above: Performed By: #### T TERESITA, HSTROPN, CRP, CMP #### [facility] [address] [place] [address] Dr. Jarek Barrera MANUAL DIFF REQ NO Normal [facility] Comment on above: Performed By: #### T TERESITA, HSTROPN, CRP, CMP #### [facility] [address] [place] [address] Dr. Jarek Barrera MCH (RBC) [Entitic mass] 32.0 pg Normal 25.9-34.0 [facility] Comment on above: Performed By: #### T TERESITA, HSTROPN, CRP, CMP #### [facility] [address] [place] [address] Dr. Jarek Barrera MCHC (RBC) [Mass/Vol] 30.0 g/dL Normal 29.9-35.2 [facility] Comment on above: Performed By: #### T TERESITA, HSTROPN, CRP, CMP #### [facility] [address] [place] [address] Dr. Jarek Barrera MCV (RBC) [Entitic vol] 106.5 fL Critically high 80.0-94.0 [facility] Comment on above: Performed By: #### T TERESITA, HSTROPN, CRP, CMP #### [facility] [address] [place] [address] Dr. Jarek Barrera MONO # 0.1 103/ul Critically low 0.3-0.8 [facility] Comment on above: Performed By: #### T TERESITA, HSTROPN, CRP, CMP #### [facility] [address] [place] [address] Dr. Jarek Barrera Monocytes/100 WBC (Bld) 1.3 % Critically low 1.7-12.0 [facility] Comment on above: Performed By: #### T TERESITA, HSTROPN, CRP, CMP #### [facility] [address] [place] [address] Dr. Jarek Barrera NEUT # 7.6 103/ul Critically high 1.4-6.5 [facility] Comment on above: Performed By: #### T TERESITA, HSTROPN, CRP, CMP #### [facility] [address] [place] [address] Dr. Jarek Barrera Neutrophils/100 WBC (Bld) 91.8 % Critically high 43.0-75.0 [facility] Comment on above: Performed By: #### T TERESITA, HSTROPN, CRP, CMP #### [facility] [address] [place] [address] Dr. Jarek Barrera Platelet mean volume (Bld) [Entitic vol] 11.2 fL Normal 9.5-13.5 [facility] Comment on above: Performed By: #### T TERESITA, HSTROPN, CRP, CMP #### [facility] [address] [address] [address] Jarek Barrera PLT 177 103/ul Normal 150-450 [facility] Comment on above: Performed By: #### T TERESITA, HSTROPN, CRP, CMP #### [facility] [address] [address] [address] Jarek Barrera RBC 3.97 106/ul Critically low 4.70-6.10 [facility] Comment on above: Performed By: #### T TERESITA, HSTROPN, CRP, CMP #### [facility] [address] [address] [address] Jarek Barrera WBC 8.3 103/ul Normal 4.0-11.0 [facility] Comment on above: Performed By: #### T TERESITA, HSTROPN, CRP, CMP #### [facility] [address] [place] [address] Dr. Jarek Barrera CRPon 11-19-2021 CRP 7.5 mg/dL Critically high <=1.0 [facility] Comment on above: Performed By: #### P HVEN #### [facility] [address] [place] [address] Dr. Jarek Barrera PROF 14(COMP METB)on 022 Albumin [Mass/Vol] 2.1 g/dL Critically low 3.5-5.0 [facility] Comment on above: Performed By: #### C RP, HSTROPN, DALE, CMP #### [facility] [address] [place] [address] Dr. Jarek Barrera Albumin/Globulin [Mass ratio] 0.4 {ratio} Normal [facility] Comment on above: Performed By: #### C RP, HSTROPN, DALE, CMP #### [facility] [address] [place] [address] Dr. Jarek Barrera ALP [Catalytic activity/Vol] 71 U/L Normal 38-126 [facility] Comment on above: Performed By: #### C RP, HSTROPN, DALE, CMP #### [facility] [address] [place] [address] Dr. Jarek Barrera ALT [Catalytic activity/Vol] 13 U/L Critically low 21-72 [facility] Comment on above: Performed By: #### C ROMEL ROSE DALE, CMP #### [facility] [address] [place] [address] Dr. Jarek aBrrera Anion gap [Moles/Vol] 13.2 mmol/L Normal [facility] Comment on above: Performed By: #### C ROMEL ROSE DALE, CMP #### [facility] [address] [place] [address] Dr. Jarek Barrera AST [Catalytic activity/Vol] 12 U/L Critically low 17-59 [facility] Comment on above: Performed By: #### C ROMEL ROSE DALE, CMP #### [facility] [address] [place] [address] Dr. Jarek Barrera Bilirubin [Mass/Vol] 0.3 mg/dL Normal 0.2-1.3 [facility] Comment on above: Performed By: #### C ROMEL ROSE DALE, CMP #### [facility] [address] [place] [address] Dr. Jarek Barrera Calcium [Mass/Vol] 8.7 mg/dL Normal 8.4-10.2 [facility] Comment on above: Performed By: #### C ROMEL ROSE DALE, CMP #### [facility] [address] [place] [address] Dr. Jarek Barrera Chloride [Moles/Vol] 117 mmol/L Critically high 98-107 [facility] Comment on above: Performed By: #### C ROMEL ROSE DALE, CMP #### [facility] [address] [place] [address] Dr. Jarek Barrera CO2 [Moles/Vol] 27.6 mmol/L Normal 22.0-30.0 [facility] Comment on above: Performed By: #### C ROMEL ROSE DALE, CMP #### [facility] [address] [place] [address] Dr. Jarek Barrera Creatinine [Mass/Vol] 1.06 mg/dL Normal 0.66-1.25 [facility] Comment on above: Performed By: #### C RP, ROMEL DALE, CMP #### [facility] [address] [place] [address] Dr. Jarek Barrera EGFR-AF SYRIAN >60 Normal >=60 [facility] Comment on above: Performed By: #### C RP, HSTRBRYAN DALE, CMP #### [facility] [address] [place] [address] Dr. Jarek Barrrea EGFR-NON AF SYRIAN >60 Normal >=60 [facility] Comment on above: Performed By: #### C RP, ROMEL DALE, CMP #### [facility] [address] [place] [address] Dr. Jarek Barrera Globulin (S) [Mass/Vol] 5.0 g/dL Normal [facility] Comment on above: Performed By: #### C RPROMEL DALE, CMP #### [facility] [address] [place] [address] Dr. Jarek Barrera Glucose [Mass/Vol] 161 mg/dL Critically high 74-106 [facility] Comment on above: Performed By: #### C RP, ROMEL DALE, CMP #### [facility] [address] [place] [address] Dr. Jarek Barrera Potassium [Moles/Vol] 3.8 mmol/L Normal 3.4-5.0 [facility] Comment on above: Performed By: #### C RP, HSTRBRYAN DALE, CMP #### [facility] [address] [place] [address] Dr. Jarek Barrera Protein [Mass/Vol] 7.1 g/dL Normal 6.1-8.2 [facility] Comment on above: Performed By: #### C RP, HSTRBRYAN DALE, CMP #### [facility] [address] [place] [address] Dr. Jarek Barrera Sodium [Moles/Vol] 154 mmol/L Critically high 137-145 [facility] Comment on above: Performed By: #### C RPROMEL THEO, CMP #### [facility] [address] [place] [address] Dr. Jarek Barrera Urea nitrogen [Mass/Vol] 30.0 mg/dL Critically high 9.0-20.0 [facility] Comment on above: Performed By: #### C RP, HSTRDALE ADAMS, CMP #### [facility] [address] [place] [address] Dr. Jarek Barrera Urea nitrogen/Creatinine [Mass ratio] 28.3 mg/mg Normal [facility] Comment on above: Performed By: #### C RPROMEL THEO, CMP #### [facility] [address] [place] [address] Dr. Jarek Barrera THEOPHYLLINEon 11-19-2021 THEOPHYLLINE 0.4 ug/mL Critically low 8.0-20.0 [facility] Comment on above: Performed By: #### P HVEN #### [facility] [address] [place] [address] Dr. Jarek Barrera TROPONIN, HIGH SENSITIVITYon 11-19-2021 HSTROP 13.5 pg/mL Normal 4.0-42.2 [facility] Comment on above: Result Comment: CUT- OFF POINTS HAVE BEEN ESTABLISHED BASED ON THE FOURTH UNIVERSAL DEFINITIONS OF MYOCARDIAL INFARCTION. THE UPPER REFERENCE LIMIT (URL) OF TROPONIN, DEFINED THE 99TH PERCENTILE OF cTnI DISTRIBUTION IN A REFERENCE POPULATION, HAS BEEN CONFIRMED THE DECISION THRESHOLD FOR HI DIAGNOSIS. Performed By: #### P HVEN #### [facility] [address] [place] [address] Dr. Jarek Barrera BNPon 11-18-2021 Natriuretic peptide B (Bld) [Mass/Vol] 172.0 pg/mL Normal <=900.0 [facility] Comment on above: Performed By: #### P HVEN #### [facility] [address] [place] [address] Dr. Jarek Barrera CBC AUTO DIFFon 11-18-2021 BASO # 0.1 103/ul Normal 0.0-0.1 [facility] Comment on above: Performed By: #### T TERESITA, HSTROPN, CRP, CMP #### [facility] [address] [place] [address] Dr. Jarek Barrera Basophils/100 WBC (Bld) 0.6 % Normal 0.2-2.0 [facility] Comment on above: Performed By: #### T TERESITA, HSTROPN, CRP, CMP #### [facility] [address] [place] [address] Dr. Jarek Barrera EO # 0.1 103/ul Normal 0.0-0.7 [facility] Comment on above: Performed By: #### T TERESITA, HSTROPN, CRP, CMP #### [facility] [address] [place] [address] Dr. Jarek Barrera Eosinophils/100 WBC (Bld) 0.6 % Critically low 0.9-7.0 [facility] Comment on above: Performed By: #### T TERESITA, HSTROPN, CRP, CMP #### [facility] [address] [place] [address] Dr. Jarek Barrera Erythrocyte distribution width (RBC) [Ratio] 15.8 % Critically high 11.0-15.0 [facility] Comment on above: Performed By: #### T TERESITA, HSTROPN, CRP, CMP #### [facility] [address] [place] [address] Dr. Jarek Barrera Hematocrit (Bld) [Volume fraction] 45.9 % Normal 42.0-54.0 [facility] Comment on above: Performed By: #### T TERESITA, HSTROPN, CRP, CMP #### [facility] [address] [place] [address] Dr. Jarek Barrera Hemoglobin (Bld) [Mass/Vol] 14.1 g/dL Normal 14.0-18.0 [facility] Comment on above: Performed By: #### T TERESITA, HSTROPN, CRP, CMP #### [facility] [address] [place] [address] Dr. Jarek Barrera IG # 0.09 10e3/ul Critically high 0.00-0.03 [facility] Comment on above: Performed By: #### T TERESITA, HSTROPN, CRP, CMP #### [facility] [address] [address] [address] Jarek Barrera IG % 0.6 % Critically high 0.0-0.5 [facility] Comment on above: Performed By: #### T TERESITA, HSTROPN, CRP, CMP #### [facility] [address] [place] [address] Dr. Jarek Barrera LYMPH # 0.8 103/ul Critically low 1.2-3.8 [facility] Comment on above: Performed By: #### T TERESITA, HSTROPN, CRP, CMP #### [facility] [address] [place] [address] Dr. Jarek Barrera Lymphocytes/100 WBC (Bld) 5.4 % Critically low 20.5-60.0 [facility] Comment on above: Performed By: #### T TERESITA, HSTROPN, CRP, CMP #### [facility] [address] [place] [address] Dr. Jarek Barrera MANUAL DIFF REQ NO Normal [facility] Comment on above: Performed By: #### T TERESITA, HSTROPN, CRP, CMP #### [facility] [address] [place] [address] Dr. Jarek Barrera MCH (RBC) [Entitic mass] 31.8 pg Normal 25.9-34.0 [facility] Comment on above: Performed By: #### T TERESITA, HSTROPN, CRP, CMP #### [facility] [address] [place] [address] Dr. Jarek Barrera MCHC (RBC) [Mass/Vol] 30.7 g/dL Normal 29.9-35.2 [facility] Comment on above: Performed By: #### T TERESITA, HSTROPN, CRP, CMP #### [facility] [address] [address] [address] Jarek Barrera MCV (RBC) [Entitic vol] 103.6 fL Critically high 80.0-94.0 [facility] Comment on above: Performed By: #### T TERESITA, HSTROPN, CRP, CMP #### [facility] [address] [address] [address] Jarek Barrera MONO # 0.9 103/ul Critically high 0.3-0.8 [facility] Comment on above: Performed By: #### T TERESITA, HSTROPN, CRP, CMP #### [facility] [address] [place] [address] Dr. Jarek Barrera Monocytes/100 WBC (Bld) 5.8 % Normal 1.7-12.0 [facility] Comment on above: Performed By: #### T TERESITA, HSTROPN, CRP, CMP #### [facility] [address] [place] [address] Dr. Jarek Barrera NEUT # 13.4 103/ul Critically high 1.4-6.5 [facility] Comment on above: Performed By: #### T TERESITA, HSTROPN, CRP, CMP #### [facility] [address] [place] [address] Dr. Jarek Barrera Neutrophils/100 WBC (Bld) 87.0 % Critically high 43.0-75.0 [facility] Comment on above: Performed By: #### T TERESITA, HSTROPN, CRP, CMP #### [facility] [address] [place] [address] Dr. Jarek Barrera Platelet mean volume (Bld) [Entitic vol] 11.4 fL Normal 9.5-13.5 [facility] Comment on above: Performed By: #### T TERESITA, HSTROPN, CRP, CMP #### [facility] [address] [place] [address] Dr. Jarek Barrera PLT 201 103/ul Normal 150-450 [facility] Comment on above: Performed By: #### T TERESITA, HSTROPN, CRP, CMP #### [facility] [address] [address] [address] Jarek Barrera RBC 4.43 106/ul Critically low 4.70-6.10 [facility] Comment on above: Performed By: #### T TERESITA, HSTROPN, CRP, CMP #### [facility] [address] [address] [address] Jarek Barrera WBC 15.4 103/ul Critically high 4.0-11.0 [facility] Comment on above: Performed By: #### T TERESITA, HSTROPN, CRP, CMP #### [facility] [address] [address] [address] Jarek Barrera CULTURE BLOODon 11-18-2021 Microscopic examination of blood, culture Culture Observations: NO GROWTH AT 5 DAYS. Normal [facility] Comment on above: Performed By: #### P HVEN #### [facility] [address] [place] [address] Dr. Jarek Barrera Performed By: #### T TERESITA, HSTROPN, CRP, CMP #### [facility] [address] [address] [address] Jarek Barrera Covid-19 PCR (CVDTBH)on 11-07 SARS-CoV-2 (COVID-19) RNA AMELIE+probe Ql (Unsp spec) Detected Critically abnormal NOT DETECTED [facility] Comment on above: Result Comment: This test is not yet approved or cleared by the [place] Food and Drug Administration (FDA). This test was developed by [facility], [place], [place]. The performance characteristics of this test were validated by [facility]. The results are not intended to be used as the sole means for clinical diagnosis or patient management decisions. [facility] is authorized under Clinical Laboratory Improvement Amendments (CLIA) to perform high- complexity testing. This test is not yet approved or cleared by the [place] FDA. When there are no FDA-approved or cleared tests available, and other criteria are met, FDA can make tests available under an emergency access mechanism called an Emergency Use Authorization (EUA). The EUA for this test is supported by the [place] of Health and Human Service's declaration that circumstances exist to justify the emergency use of in vitro diagnostics for the detection and/or diagnosis of the virus that causes COVID-19. This EUA will remain in effect for the duration of the COVID-19 declaration justifying emergency of IVDs, unless it is terminated or revoked by the FDA (after which the test may no longer be used). Performed By: #### T TERESITA HSTROPN, CRP, CMP #### [facility] [address] [place] [address] Dr. Jarek Barrera LACTATE/LACTIC ACIDon 2021 Lactate [Moles/Vol] 1.5 mmol/L Normal 0.7-2.0 [facility] Comment on above: Performed By: #### P HVEN #### [facility] [address] [place] [address] Dr. Jarek Barrera Lactate [Moles/Vol] 1.6 mmol/L Normal 0.7-2.0 [facility] Comment on above: Performed By: #### T MERCY LOTRESAUN, CRP, CMP #### [facility] [address] [place] [address] Dr. Jarek Barrera PH VENOUS BLOODon 11-18-2021 PCO2 VENOUS 42.2 mmHg Normal 40.0-52.0 [facility] Comment on above: Performed By: #### P HVEN #### [facility] [address] [place] [address] Dr. Jarek Barrera pH VENOUS 7.492 Critically high 7.330-7.430 [facility] Comment on above: Performed By: #### P HVEN #### [facility] [address] [place] [address] Dr. Jarek Barrera PROF 14(COMP METB)on 022 Albumin [Mass/Vol] 2.3 g/dL Critically low 3.5-5.0 [facility] Comment on above: Performed By: #### P HVEN #### [facility] [address] [place] [address] Dr. Jarek Barrera Albumin/Globulin [Mass ratio] 0.4 {ratio} Normal [facility] Comment on above: Performed By: #### P HVEN #### [facility] [address] [address] [address] Jarek Barrera ALP [Catalytic activity/Vol] 76 U/L Normal 38-126 [facility] Comment on above: Performed By: #### P HVEN #### [facility] [address] [address] [address] Jarek Barrera ALT [Catalytic activity/Vol] 16 U/L Critically low 21-72 [facility] Comment on above: Performed By: #### P HVEN #### [facility] [address] [address] [address] Jarek Barerra Anion gap [Moles/Vol] 11.7 mmol/L Normal [facility] Comment on above: Performed By: #### P HVEN #### [facility] [address] [address] [address] Jarek Barrera AST [Catalytic activity/Vol] 20 U/L Normal 17-59 [facility] Comment on above: Performed By: #### P HVEN #### [facility] [address] [address] [address] Jarek Barrera Bilirubin [Mass/Vol] 0.5 mg/dL Normal 0.2-1.3 [facility] Comment on above: Performed By: #### P HVEN #### [facility] [address] [address] [address] Jarek Barrera Calcium [Mass/Vol] 8.8 mg/dL Normal 8.4-10.2 [facility] Comment on above: Performed By: #### P HVEN #### [facility] [address] [address] [address] Jarek Barrera Chloride [Moles/Vol] 114 mmol/L Critically high 98-107 [facility] Comment on above: Performed By: #### P HVEN #### [facility] [address] [address] [address] Jarek Barrera CO2 [Moles/Vol] 30.3 mmol/L Critically high 22.0-30.0 [facility] Comment on above: Performed By: #### P HVEN #### [facility] [address] [address] [address] Jarek Barrera Creatinine [Mass/Vol] 1.17 mg/dL Normal 0.66-1.25 [facility] Comment on above: Performed By: #### P HVEN #### [facility] [address] [address] [address] Jarek Barrera EGFR-AF SYRIAN >60 Normal >=60 [facility] Comment on above: Performed By: #### P HVEN #### [facility] [address] [address] [address] Jarek Barrera EGFR-NON AF SYRIAN >60 Normal >=60 [facility] Comment on above: Performed By: #### P HVEN #### [facility] [address] [address] [address] Jarek Barrera Globulin (S) [Mass/Vol] 5.3 g/dL Normal [facility] Comment on above: Performed By: #### P HVEN #### [facility] [address] [address] [address] Jarek Barrera Glucose [Mass/Vol] 128 mg/dL Critically high 74-106 [facility] Comment on above: Performed By: #### P HVEN #### [facility] [address] [place] [address] Dr. Jarek Barrera Potassium [Moles/Vol] 4.0 mmol/L Normal 3.4-5.0 [facility] Comment on above: Result Comment: SPEC IMEN SLIGHTLY HEMOLYZED MAY AFFECT K+ Performed By: #### P HVEN #### [facility] [address] [place] [address] Dr. Jarek Barrera Protein [Mass/Vol] 7.6 g/dL Normal 6.1-8.2 [facility] Comment on above: Performed By: #### P HVEN #### [facility] [address] [place] [address] Dr. Jarek Barrera Sodium [Moles/Vol] 152 mmol/L Critically high 137-145 [facility] Comment on above: Performed By: #### P HVEN #### [facility] [address] [place] [address] Dr. Jarek Barrera Urea nitrogen [Mass/Vol] 26.0 mg/dL Critically high 9.0-20.0 [facility] Comment on above: Performed By: #### P HVEN #### [facility] [address] [place] [address] Dr. Jarek Barrera Urea nitrogen/Creatinine [Mass ratio] 22.2 mg/mg Normal [facility] Comment on above: Performed By: #### P HVEN #### [facility] [address] [place] [address] Dr. Jarek Barrera PROTIMEon 11-18-2021 INR Coag (PPP) [Relative time] 1.17 {INR} Normal [facility] Comment on above: Performed By: #### P T #### [facility] [address] [place] [address] Dr. Jarek Barrera INR GUIDELINES SEE BELOW Normal [facility] Comment on above: Result Comment: AFTAB RED INR: 2.0 - 3.0 CONDITIONS NOT LISTED BELOW 2.5 - 3.5 FOR PROSTHETIC HEART VALVE REPLACEMENT 2.5 - 3.5 RECURRENT THROMBOSIS Performed By: #### P T #### [facility] [address] [place] [address] Dr. Jarek Barrera PT Coag (PPP) [Time] 12.5 s Critically high 9.0-11.6 [facility] Comment on above: Performed By: #### P T #### [facility] [address] [place] [address] Dr. Jarek Barrera TROPONIN, HIGH SENSITIVITYon 11-18-2021 HSTROP 13.6 pg/mL Normal 4.0-42.2 [facility] Comment on above: Result Comment: CUT- OFF POINTS HAVE BEEN ESTABLISHED BASED ON THE FOURTH UNIVERSAL DEFINITIONS OF MYOCARDIAL INFARCTION. THE UPPER REFERENCE LIMIT (URL) OF TROPONIN, DEFINED THE 99TH PERCENTILE OF cTnI DISTRIBUTION IN A REFERENCE POPULATION, HAS BEEN CONFIRMED THE DECISION THRESHOLD FOR HI DIAGNOSIS. Performed By: #### P HVEN #### [facility] [address] [place] [address] Dr. Jarek Barrera XR CHEST 1 Von 11-18-2021 XR CHEST 1 V EXAM: XR CHEST 1 V HISTORY: SHORTNESS OF BREATH COMPARISON: None. TECHNIQUE: Single frontal view of the chest. FINDINGS: Tubes/lines/devices: None. Lungs: Hypoinflated with resultant bronchovascular crowding. No dense consolidation. Bandlike opacities at the bilateral lung bases, likely atelectasis. Pleura: No pneumothorax. No pleural effusion. Heart and mediastinum: No enlargement of the cardiomediastinal silhouette Bones/soft tissues: No acute osseous findings. Severe bilateral glenohumeral joint osteoarthritis. Unremarkable soft tissues. Abdomen: Unremarkable. IMPRESSION: Hypoventilatory changes without acute pulmonary findings. Electronically authenticated by: KIANNA DONATO Date: 2021-11-18 09:49 Normal [facility] CT CERVICAL SPINE WO CONTRAS Ton 08-10-2021 CT CERVICAL SPINE WO CONTRAST EXAMINATION: CT OF THE CERVICAL SPINE WITHOUT CONTRAST 08/10/2021 5:37 pm TECHNIQUE: CT of the cervical spine was performed without the administration of intravenous contrast. Multiplanar reformatted images are provided for review. Dose modulation, iterative reconstruction, and/or weight based adjustment of the mA/kV was utilized to reduce the radiation dose to as low as reasonably achievable. COMPARISON: CT angiogram head neck 06/02/2020 HISTORY: ORDERING SYSTEM PROVIDED HISTORY: head injury TECHNOLOGIST PROVIDED HISTORY: head injury Decision Support Exception - unselect if not a suspected or confirmed emergency medical condition->Emergency Medical Condition (MA) FINDINGS: BONES/ALIGNMENT: There is no acute fracture or traumatic malalignment. DEGENERATIVE CHANGES: Multilevel degenerate change. Anterolisthesis C3 on C4. Severe degenerate changes from C4 through T2. SOFT TISSUES: There is no prevertebral soft tissue swelling. Heterogeneous thyroid gland greatest on left which could suggest goiter, consider thyroid ultrasound this may change patient management. IMPRESSION: Multilevel degenerate change. Negative acute fracture traumatic malalignment Interpreted by: Sam Ramos MD Signed by: Sam Ramos MD 08/10/21 Final result Normal [facility] CT CERVICAL SPINE WO CONTRAS TOrdered By: Nemesio Rios on 08-10-2021 Multilevel degenerat e change. Negative acute fracture traumatic malalignment [facility]: EXAMINATION: CT OF THE CERVICAL SPINE WITHOUT CONTRAST 08/10/2021 5:37 pm TECHNIQUE: CT of the cervical spine was performed without the administration of intravenous contrast. Multiplanar reformatted images are provided for review. Dose modulation, iterative reconstruction, and/or weight based adjustment of the mA/kV was utilized to reduce the radiation dose to as low as reasonably achievable. COMPARISON: CT angiogram head neck 06/02/2020 HISTORY: ORDERING SYSTEM PROVIDED HISTORY: head injury TECHNOLOGIST PROVIDED HISTORY: head injury Decision Support Exception - unselect if not a suspected or confirmed emergency medical condition->Emergency Medical Condition (MA) FINDINGS: BONES/ALIGNMENT: There is no acute fracture or traumatic malalignment. DEGENERATIVE CHANGES: Multilevel degenerate change. Anterolisthesis C3 on C4. Severe degenerate changes from C4 through T2. SOFT TISSUES: There is no prevertebral soft tissue swelling. Heterogeneous thyroid gland greatest on left which could suggest goiter, consider thyroid ultrasound this may change patient management. [employer] Phone: Giuseppe, [facility] Incoming Radiant Results From [employer] - 08/10/2021 6:31 PM EDT EXAMINATION: CT OF THE CERVICAL SPINE WITHOUT CONTRAST 08/10/2021 5:37 pm TECHNIQUE: CT of the cervical spine was performed without the administration of intravenous contrast. Multiplanar reformatted images are provided for review. Dose modulation, iterative reconstruction, and/or weight based adjustment of the mA/kV was utilized to reduce the radiation dose to as low as reasonably achievable. COMPARISON: CT angiogram head neck 06/02/2020 HISTORY: ORDERING SYSTEM PROVIDED HISTORY: head injury TECHNOLOGIST PROVIDED HISTORY: head injury Decision Support Exception - unselect if not a suspected or confirmed emergency medical condition->Emergency Medical Condition (MA) FINDINGS: BONES/ALIGNMENT: There is no acute fracture or traumatic malalignment. DEGENERATIVE CHANGES: Multilevel degenerate change. Anterolisthesis C3 on C4. Severe degenerate changes from C4 through T2. SOFT TISSUES: There is no prevertebral soft tissue swelling. Heterogeneous thyroid gland greatest on left which could suggest goiter, consider thyroid ultrasound this may change patient management. IMPRESSION: Multilevel degenerate change. Negative acute fracture traumatic malalignment [employer] Phone: [employer] Phone: CT HEAD WO CONTRASTon 2020 CT HEAD WO CONTRAST EXAMINATION: CT OF THE HEAD WITHOUT CONTRAST 08/10/2021 5:37 pm TECHNIQUE: CT of the head was performed without the administration of intravenous contrast. Dose modulation, iterative reconstruction, and/or weight based adjustment of the mA/kV was utilized to reduce the radiation dose to as low as reasonably achievable. COMPARISON: 06/02/2020 HISTORY: ORDERING SYSTEM PROVIDED HISTORY: head injury TECHNOLOGIST PROVIDED HISTORY: head injury Decision Support Exception - unselect if not a suspected or confirmed emergency medical condition->Emergency Medical Condition (MA) FINDINGS: BRAIN/VENTRICLES: Generalized involution changes and chronic microvascular disease. Encephalomalacia identified right anterior inferior frontal lobe the gyrus rectus and along the inferior temporal lobes. No shift of midline structure. Basal cisterns are patent. Vascular calcifications. ORBITS: Left-sided pthisis bulbous. Right-sided cataract surgery. SINUSES: There is opacification both middle air cavities and mastoids. This appears similar prior examination. Moderate severe right maxillary sinus disease with air-fluid level and frothy secretions. SOFT TISSUES/SKULL: No acute abnormality of the visualized skull or soft tissues. IMPRESSION: No acute intracranial abnormality. Chronic microvascular disease and involutional changes Bilateral mastoid and middle ear cavity opacifications. Questions could represent chronic otomastoiditis. Posterior changes status post left-sided mastoidectomy. Interpreted by: Sam Ramos MD Signed by: Sam Ramos MD 08/10/21 Final result Normal [facility] CT Head WO ContrastOrdered B y: Nemesio Rios on 08-10-2021 No acute intracrania l abnormality. Chronic microvascular disease and involutional changes Bilateral mastoid and middle ear cavity opacifications. Questions could represent chronic otomastoiditis. Posterior changes status post left-sided mastoidectomy. [facility] Work Phone: EXAMINATION: CT OF THE HEAD WITHOUT CONTRAST 08/10/2021 5:37 pm TECHNIQUE: CT of the head was performed without the administration of intravenous contrast. Dose modulation, iterative reconstruction, and/or weight based adjustment of the mA/kV was utilized to reduce the radiation dose to as low as reasonably achievable. COMPARISON: 06/02/2020 HISTORY: ORDERING SYSTEM PROVIDED HISTORY: head injury TECHNOLOGIST PROVIDED HISTORY: head injury Decision Support Exception - unselect if not a suspected or confirmed emergency medical condition->Emergency Medical Condition (MA) FINDINGS: BRAIN/VENTRICLES: Generalized involution changes and chronic microvascular disease. Encephalomalacia identified right anterior inferior frontal lobe the gyrus rectus and along the inferior temporal lobes. No shift of midline structure. Basal cisterns are patent. Vascular calcifications. ORBITS: Left-sided pthisis bulbous. Right-sided cataract surgery. SINUSES: There is opacification both middle air cavities and mastoids. This appears similar prior examination. Moderate severe right maxillary sinus disease with air-fluid level and frothy secretions. SOFT TISSUES/SKULL: No acute abnormality of the visualized skull or soft tissues. [employer] Phone: Giuseppe, pn Incoming Radiant Results From [employer] - 08/10/2021 6:26 PM EDT EXAMINATION: CT OF THE HEAD WITHOUT CONTRAST 08/10/2021 5:37 pm TECHNIQUE: CT of the head was performed without the administration of intravenous contrast. Dose modulation, iterative reconstruction, and/or weight based adjustment of the mA/kV was utilized to reduce the radiation dose to as low as reasonably achievable. COMPARISON: 06/02/2020 HISTORY: ORDERING SYSTEM PROVIDED HISTORY: head injury TECHNOLOGIST PROVIDED HISTORY: head injury Decision Support Exception - unselect if not a suspected or confirmed emergency medical condition->Emergency Medical Condition (MA) FINDINGS: BRAIN/VENTRICLES: Generalized involution changes and chronic microvascular disease. Encephalomalacia identified right anterior inferior frontal lobe the gyrus rectus and along the inferior temporal lobes. No shift of midline structure. Basal cisterns are patent. Vascular calcifications. ORBITS: Left-sided pthisis bulbous. Right-sided cataract surgery. SINUSES: There is opacification both middle air cavities and mastoids. This appears similar prior examination. Moderate severe right maxillary sinus disease with air-fluid level and frothy secretions. SOFT TISSUES/SKULL: No acute abnormality of the visualized skull or soft tissues. IMPRESSION: No acute intracranial abnormality. Chronic microvascular disease and involutional changes Bilateral mastoid and middle ear cavity opacifications. Questions could represent chronic otomastoiditis. Posterior changes status post left-sided mastoidectomy. [employer] Phone: [employer] Phone: XR HAND RIGHT (MIN 3 VIEWS)o n 08-10-2021 XR HAND RIGHT (MIN 3 VIEWS) EXAMINATION: THREE XRAY VIEWS OF THE RIGHT HAND 08/10/2021 3:49 pm COMPARISON: None. HISTORY: ORDERING SYSTEM PROVIDED HISTORY: pain TECHNOLOGIST PROVIDED HISTORY: pain FINDINGS: Three views obtained. Fingers are flexed with overall position limiting evaluation. No acute fracture demonstrated. There is diffuse nonspecific soft tissue edema along the dorsal aspect of the hand without gas collection or radiopaque foreign body. IMPRESSION: Nonspecific dorsal soft tissue edema. No acute fracture demonstrated. Interpreted by: Juan Huggins DO Signed by: Juan Huggins DO 08/10/21 Final result Normal [facility] XR HAND RIGHT (MIN 3 VIEWS)O rdered By: Kian Suarez on 08-10-2021 Nonspecific dorsal soft tissue edema. No acute fracture demonstrated. [employer] Phone: EXAMINATION: THREE XRAY VIEWS OF THE RIGHT HAND 08/10/2021 3:49 pm COMPARISON: None. HISTORY: ORDERING SYSTEM PROVIDED HISTORY: pain TECHNOLOGIST PROVIDED HISTORY: pain FINDINGS: Three views obtained. Fingers are flexed with overall position limiting evaluation. No acute fracture demonstrated. There is diffuse nonspecific soft tissue edema along the dorsal aspect of the hand without gas collection or radiopaque foreign body. [facility]: [place], [facility] Incoming Radiant Results From [employer] - 08/10/2021 3:58 PM EDT EXAMINATION: THREE XRAY VIEWS OF THE RIGHT HAND 08/10/2021 3:49 pm COMPARISON: None. HISTORY: ORDERING SYSTEM PROVIDED HISTORY: pain TECHNOLOGIST PROVIDED HISTORY: pain FINDINGS: Three views obtained. Fingers are flexed with overall position limiting evaluation. No acute fracture demonstrated. There is diffuse nonspecific soft tissue edema along the dorsal aspect of the hand without gas collection or radiopaque foreign body. IMPRESSION: Nonspecific dorsal soft tissue edema. No acute fracture demonstrated. [employer] Phone: [facility] Phone: OPERATIVE REPORTon OPERATIVE REPORT [address] [id number] OPERATIVE REPORT PATIENT NAME: FER SANDOVAL : 1960 MED REC NO: [id number] ROOM: ACCOUNT NO: [id number] ADMIT DATE: 07/13/2021 PROVIDER: Can Giordano DPM DATE OF PROCEDURE: 07/13/2021 SURGEON: Can Giordano DPM. [employer] LIAISON: [place]. PREOPERATIVE DIAGNOSES: Left foot hallux distal ulcer with soft tissue mass, granuloma tissue/possible hemangioma. POSTOPERATIVE DIAGNOSES: Left foot hallux distal ulcer with soft tissue mass, granuloma tissue/possible hemangioma. PROCEDURE PERFORMED: Excision of soft tissue, left hallux distal with wound debridement. ANESTHESIA: MAC. HEMOSTASIS: Anatomical. OBJECTIVE: As follows: The patient was prophylaxed with IV antibiotics 1 hour preop. The patient taken to the operating room, placed in dorsal recumbent position. Attention directed to the left foot hallux, where approximately 4 mL of 50:50 mixture of 2% lidocaine plain and 0.5% Marcaine plain was infiltrated in an H block. Foot was then prepped and draped sterilely. Attention directed to the distal aspect, left hallux, where there was a soft tissue mass, measured approximately 0.7 cm in diameter. Did have consistency of some granuloma tissue, but also possible hemangioma. A #15 blade was then used to remove this in a wide excision fashion. Did note quite a bit of bleeding. All bleeders were cauterized. The removal was through the deep tissue and to some fascial layer. The area copiously lavaged with gentamicin flush. The wound was left open to allow secondary healing through secondary intention to the area. Dry sterile fluff compressive dressing was then applied. The patient tolerated the anesthesia and procedure well without complications, was transported to the recovery room with vital signs stable, afebrile, and in apparent satisfactory condition. Sponge, needle, and instrument counts were all correct. CAN GIORDANO DPM [id number] Doc#: [id number] CC: [facility] Surgical Pathologyon Surgical Pathology (NOTE) -- Diagnosis -- SKIN AND SUBCUTANEOUS TISSUE, RIGHT GREAT TOE WOUND, DEBRIDEMENT: ACTIVE CHRONIC ULCER WITH ACUTE AND CHRONIC INFLAMMATION AND REACTIVE FIBROSIS. Wong Lyman Electronically Signed Out ajb07/17/2021 Clinical Information Pre-op Diagnosis: LEFT HALLUX ULCER/WOUND Operative Findings: TISSUE RIGHT GREAT TOE Operation Performed: FOOT DEBRIDEMENT INCISION AND DRAINAGE Source of Specimen 1: TISSUE RIGHT GREAT TOE Gross Description FER SANDOVAL, TISSUE RIGHT TOE 2.3 x 1.2 x 0.8 cm fragment of granular pink-ledbetter tissue and skin. Entirely 1cs. tm Microscopic Description Microscopic examination performed. SURGICAL PATHOLOGY CONSULTATION Patient Name: FER SANDOVAL [facility] Rec: [id number] Path Number: [id number] [facility] ANATOMIC PATHOLOGY [address] [place] [address]. [place], [place] [address] Normal [facility] Comment on above: Performed By: #### B CUL2 #### [facility] [address] [place] [address] Degreaser Operator: Mode Culver MD CBC AUTO DIFFon 05-16-2021 BASO # 0.1 103/ul Normal 0.0-0.1 [facility] Comment on above: Performed By: #### T TERESITA, HSTROPN, CRP, CMP #### [facility] [address] [address] [address] Jarek Barrera Basophils/100 WBC (Bld) 0.7 % Normal 0.2-2.0 [facility] Comment on above: Performed By: #### T TERESITA, HSTROPN, CRP, CMP #### [facility] [address] [address] [address] Jarek Barrera EO # 0.1 103/ul Normal 0.0-0.7 [facility] Comment on above: Performed By: #### T TERESITA, HSTROPN, CRP, CMP #### [facility] [address] [address] [address] Jarek Barrera Eosinophils/100 WBC (Bld) 0.7 % Critically low 0.9-7.0 [facility] Comment on above: Performed By: #### T TERESITA, HSTROPN, CRP, CMP #### [facility] [address] [address] [address] Jarek Barrera Erythrocyte distribution width (RBC) [Ratio] 12.8 % Normal 11.0-15.0 [facility] Comment on above: Performed By: #### T TERESITA, HSTROPN, CRP, CMP #### [facility] [address] [address] [address] Jarek Barrera Hematocrit (Bld) [Volume fraction] 49.0 % Normal 42.0-54.0 [facility] Comment on above: Performed By: #### T TERESITA, HSTROPN, CRP, CMP #### [facility] [address] [place] [address] Dr. Jarek Barrera Hemoglobin (Bld) [Mass/Vol] 16.3 g/dL Normal 14.0-18.0 [facility] Comment on above: Performed By: #### T TERESITA, HSTROPN, CRP, CMP #### [facility] [address] [place] [address] Dr. Jarek Barrera IG # 0.03 10e3/ul Normal 0.00-0.03 [facility] Comment on above: Performed By: #### T TERESITA, HSTROPN, CRP, CMP #### [facility] [address] [place] [address] Dr. Jarek Barrera IG % 0.3 % Normal 0.0-0.5 [facility] Comment on above: Performed By: #### T TERESITA, HSTROPN, CRP, CMP #### [facility] [address] [place] [address] Dr. Jarek Barrera LYMPH # 1.1 103/ul Critically low 1.2-3.8 [facility] Comment on above: Performed By: #### T TERESITA, HSTROPN, CRP, CMP #### [facility] [address] [place] [address] Dr. Jarek Barrera Lymphocytes/100 WBC (Bld) 9.9 % Critically low 20.5-60.0 [facility] Comment on above: Performed By: #### T TERESITA, HSTROPN, CRP, CMP #### [facility] [address] [address] [address] Jarek Barrera MANUAL DIFF REQ NO Normal [facility] Comment on above: Performed By: #### T TERESITA, HSTROPN, CRP, CMP #### [facility] [address] [address] [address] Jarek Barrera MCH (RBC) [Entitic mass] 32.9 pg Normal 25.9-34.0 [facility] Comment on above: Performed By: #### T TERESITA, HSTROPN, CRP, CMP #### [facility] [address] [address] [address] Jarek Barrera MCHC (RBC) [Mass/Vol] 33.3 g/dL Normal 29.9-35.2 [facility] Comment on above: Performed By: #### T TERESITA, HSTROPN, CRP, CMP #### [facility] [address] [address] [address] Jarek Barrera MCV (RBC) [Entitic vol] 98.8 fL Critically high 80.0-94.0 [facility] Comment on above: Performed By: #### T TERESITA, HSTROPN, CRP, CMP #### [facility] [address] [address] [address] Jarek Barrera MONO # 1.0 103/ul Critically high 0.3-0.8 [facility] Comment on above: Performed By: #### T TERESITA, HSTROPN, CRP, CMP #### [facility] [address] [address] [address] Jarek Barrera Monocytes/100 WBC (Bld) 8.5 % Normal 1.7-12.0 [facility] Comment on above: Performed By: #### T TERESITA, HSTROPN, CRP, CMP #### [facility] [address] [place] [address] Dr. Jarek Barrera NEUT # 9.0 103/ul Critically high 1.4-6.5 [facility] Comment on above: Performed By: #### T TERESITA, HSTROPN, CRP, CMP #### [facility] [address] [address] [address] Jarek Barrera Neutrophils/100 WBC (Bld) 79.9 % Critically high 43.0-75.0 [facility] Comment on above: Performed By: #### T TERESITA, HSTROPN, CRP, CMP #### [facility] [address] [address] [address] Jarek Barrera Platelet mean volume (Bld) [Entitic vol] 9.8 fL Normal 9.5-13.5 [facility] Comment on above: Performed By: #### T TERESITA, HSTROPN, CRP, CMP #### [facility] [address] [address] [address] Jarek Barrera PLT 226 103/ul Normal 150-450 [facility] Comment on above: Performed By: #### T TERESITA, HSTROPN, CRP, CMP #### [facility] [address] [place] [address] Dr. Jarek Barrera RBC 4.96 106/ul Normal 4.70-6.10 [facility] Comment on above: Performed By: #### T TERESITA, HSTROPN, CRP, CMP #### [facility] [address] [place] [address] Dr. Jarek Barrera WBC 11.3 103/ul Critically high 4.0-11.0 [facility] Comment on above: Performed By: #### T TERESITA, HSTROPN, CRP, CMP #### [facility] [address] [place] [address] Dr. Jarek Barrera LIPID PROFILEon 05-16-2021 CHOL-HDL RATIO NORM SEE BELOW Normal [facility] Comment on above: Result Comment: 3.3 - 4.4 LOW RISK 4.4 - 7.1 AVERAGE RISK 7.1 - 11.0 MODERATE RISK >11.0 HIGH RISK Performed By: #### T TERESITA, HSTROPN, CRP, CMP #### [facility] [address] [place] [address] Dr. Jarek Barrera Cholesterol [Mass/Vol] 153 mg/dL Normal <=200 [facility] Comment on above: Performed By: #### T TERESITA, HSTROPN, CRP, CMP #### [facility] [address] [address] [address] Jarek Barrera Cholesterol in HDL [Mass/Vol] 55 mg/dL Normal [facility] Comment on above: Performed By: #### T TERESITA, HSTROPN, CRP, CMP #### [facility] [address] [address] [address] Jarek Barrera Cholesterol in LDL [Mass/Vol] 75.6 mg/dL Normal [facility] Comment on above: Performed By: #### T TERESITA, HSTROPN, CRP, CMP #### [facility] [address] [address] [address] Jarek Barrera Cholesterol.total/C holesterol in HDL [Mass ratio] 2.8 {ratio} Normal [facility] Comment on above: Performed By: #### T TERESITA, HSTROPN, CRP, CMP #### [facility] [address] [address] [address] Jarek Barrera HDL NORMAL > or = 60 mg/dl - LO W CARDIOVASCULAR RISK <40 mg/dl - HIGH CARDIOVASCULAR RISK Normal [facility] Comment on above: Performed By: #### T TERESITA, HSTROPN, CRP, CMP #### [facility] [address] [address] [address] Jarek Barrera LDL CALC NORMAL SEE BELOW Normal [facility] Comment on above: Result Comment: <100 mg/dl OPTIMAL 100 - 129 mg/dl NEAR OR ABOVE OPTIMAL 130 - 159 mg/dl BORDERLINE HIGH 160 - 189 mg/dl HIGH >190 mg/dl VERY HIGH Performed By: #### T TERESITA, HSTROPN, CRP, CMP #### [facility] [address] [address] [address] Jarek Barrera Triglyceride [Mass/Vol] 112 mg/dL Normal <=150 [facility] Comment on above: Performed By: #### T TERESITA, HSTROPN, CRP, CMP #### [facility] [address] [place] [address] Dr. Jarek Barrera VLDL CALC 22.4 mg/dL Normal [facility] Comment on above: Performed By: #### T TERESITA, HSTROPN, CRP, CMP #### [facility] [address] [place] [address] Dr. Jarek Barrera PROF 14(COMP METB)on 021 Albumin [Mass/Vol] 3.0 g/dL Critically low 3.5-5.0 [facility] Comment on above: Performed By: #### T TERESITA, HSTROPN, CRP, CMP #### [facility] [address] [address] [address] Jarek Barrera Albumin/Globulin [Mass ratio] 0.7 {ratio} Normal [facility] Comment on above: Performed By: #### T TERESITA, HSTROPN, CRP, CMP #### [facility] [address] [place] [address] Dr. Jarek Barrera ALP [Catalytic activity/Vol] 78 U/L Normal 38-126 [facility] Comment on above: Performed By: #### T TERESITA, HSTROPN, CRP, CMP #### [facility] [address] [address] [address] Jarek Barrera ALT [Catalytic activity/Vol] 26 U/L Normal 21-72 [facility] Comment on above: Performed By: #### T TERESITA, HSTROPN, CRP, CMP #### [facility] [address] [address] [address] Jarek Barrera Anion gap [Moles/Vol] 9.1 mmol/L Normal [facility] Comment on above: Performed By: #### T TERESITA, HSTROPN, CRP, CMP #### [facility] [address] [place] [address] Dr. Jarek Barrera AST [Catalytic activity/Vol] 26 U/L Normal 17-59 [facility] Comment on above: Performed By: #### T TERESITA, HSTROPN, CRP, CMP #### [facility] [address] [place] [address] Dr. Jarek Barrera Bilirubin [Mass/Vol] 0.4 mg/dL Normal 0.2-1.3 [facility] Comment on above: Performed By: #### T TERESITA, HSTROPN, CRP, CMP #### [facility] [address] [place] [address] Dr. Jarek Barrera Calcium [Mass/Vol] 9.1 mg/dL Normal 8.4-10.2 [facility] Comment on above: Performed By: #### T TERESITA, HSTROPN, CRP, CMP #### [facility] [address] [address] [address] Jarek Barrera Chloride [Moles/Vol] 101 mmol/L Normal 98-107 [facility] Comment on above: Performed By: #### T TERESITA, HSTROPN, CRP, CMP #### [facility] [address] [place] [address] Dr. Jarek Barrera CO2 [Moles/Vol] 33.4 mmol/L Critically high 22.0-30.0 [facility] Comment on above: Performed By: #### T TERESITA, HSTROPN, CRP, CMP #### [facility] [address] [place] [address] Dr. Jarek Barrera Creatinine [Mass/Vol] 1.06 mg/dL Normal 0.66-1.25 [facility] Comment on above: Performed By: #### T TERESITA, HSTROPN, CRP, CMP #### [facility] [address] [place] [address] Dr. Jarek Barrera EGFR-AF SYRIAN >60 Normal >=60 [facility] Comment on above: Performed By: #### T TERESITA, HSTROPN, CRP, CMP #### [facility] [address] [place] [address] Dr. Jarek Barrera EGFR-NON AF SYRIAN >60 Normal >=60 [facility] Comment on above: Performed By: #### T TERESITA, HSTROPN, CRP, CMP #### [facility] [address] [place] [address] Dr. Jarek Barrera Globulin (S) [Mass/Vol] 4.3 g/dL Normal [facility] Comment on above: Performed By: #### T TERESITA, HSTROPN, CRP, CMP #### [facility] [address] [address] [address] Jarek Barrera Glucose [Mass/Vol] 141 mg/dL Critically high 74-106 [facility] Comment on above: Performed By: #### T TERESITA, HSTROPN, CRP, CMP #### [facility] [address] [address] [address] Jarek Barrera Potassium [Moles/Vol] 3.5 mmol/L Normal 3.4-5.0 [facility] Comment on above: Performed By: #### T TERESITA, HSTROPN, CRP, CMP #### [facility] [address] [address] [address] Jarek Barrera Protein [Mass/Vol] 7.3 g/dL Normal 6.1-8.2 [facility] Comment on above: Performed By: #### T TERESITA, HSTROPN, CRP, CMP #### [facility] [address] [address] [address] Jarek Barrera Sodium [Moles/Vol] 140 mmol/L Normal 137-145 [facility] Comment on above: Performed By: #### T TERESITA, HSTROPN, CRP, CMP #### [facility] [address] [address] [address] Jarek Barrera Urea nitrogen [Mass/Vol] 21.0 mg/dL Critically high 9.0-20.0 [facility] Comment on above: Performed By: #### T TERESITA, HSTROPN, CRP, CMP #### [facility] [address] [address] [address] Jarek Barrera Urea nitrogen/Creatinine [Mass ratio] 19.8 mg/mg Normal [facility] Comment on above: Performed By: #### T TERESITA, HSTROPN, CRP, CMP #### [facility] [address] [address] [address] Jarek Barrera Surgical Pathologyon 020 Surgical Pathology Report -- Diagnosis -- LEFT THYROID, FINE NEEDLE ASPIRATION: BENIGN CONSISTENT WITH CHRONIC LYMPHOCYTIC (MARIELLA) THYROIDITIS IN THE PROPER CLINICAL CONTEXTCOMMENT: THE SPECIMEN CONTAINS NUMEROUS FOLLICULAR EPITHELIAL CELLS WITH HURTHLE CELL/ONCOCYTIC FEATURES AND ABUNDANT SMALL LYMPHOCYTES, CYTOLOGICALLY CONSISTENT WITH CHRONIC LYMPHOCYTIC (MARIELLA'S) THYROIDITIS. Fernando Zuñiga, Electronically Signed Out 07/28/2020 Clinical Information Left thyroid nodule. Source of Specimen 1: LEFT THYROID, FINE NEEDLE ASPIRATION Gross Description LEFT THYROID Specimen received in CytoLyt solution, red cloudy fluid. MICROSCOPIC DESCRIPTION NUMBER DIRECT SMEARS: 0 NUMBER THIN PREP: 1 NUMBER CELL BLOCK: 1 ADEQUATELY FIXED & STAINED PREPARATIONS: Yes ASSESSMENT OF FOLLICULAR CELL/GROUP NUMBERS (at least 6 groups, each with at least 10 cells): Adequate COLLOID: Present INFLAMMATORY CELLS: Abundant small lymphocytes HISTIOCYTES: Few ATYPICAL EPITHELIAL CELLS: Not identified NEOPLASTIC CELLS: Not identified BETHESDA DIAGNOSTIC CATEGORY: Benign. Consistent with chronic lymphocytic (Mariella's) thyroiditis. See comment above. Microscopic examination performed. NONGYNECOLOGICAL CYTOPATHOLOGY CONSULTATION Patient Name: FER SANDOVAL [facility] Rec: [id number] Path Number: [id number] [facility]AT[facility] [address] [place] [address]. [place], [place] [address] [place], [place] BIOPSY THYROIDon 07-27-20 20 Successful ultrasound-guided fine-needle aspiration of the thyroid [place], [place] PROCEDURE: ULTRASOUN D GUIDED THYROID FNA 07/26/2020 COMPARISON: Ultrasound of the head and neck from 06/28/2020. HISTORY: ORDERING SYSTEM PROVIDED HISTORY: Dysphagia, unspecified type TECHNOLOGIST PROVIDED HISTORY: thyroid nodule TECHNIQUE: Informed consent was obtained after the procedure was discussed in detail including the risk, benefits, and alternatives. Etoile protocol was followed. The neck was prepped and draped in sterile fashion and local anesthesia was achieved with lidocaine. 25 gauge needle was advanced under ultrasound guidance into an enlarged left thyroid and fine-needle aspiration was performed. 4 passes were performed and the patient tolerated the procedure well. FINDINGS: Good needle position within the left thyroid lobe demonstrated. [place], [place] Margarita Chin Incoming Radiant Results From [employer] - 07/27/2020 12:51 PM EDT PROCEDURE: ULTRASOUND GUIDED THYROID FNA 07/26/2020 COMPARISON: Ultrasound of the head and neck from 06/28/2020. HISTORY: ORDERING SYSTEM PROVIDED HISTORY: Dysphagia, unspecified type TECHNOLOGIST PROVIDED HISTORY: thyroid nodule TECHNIQUE: Informed consent was obtained after the procedure was discussed in detail including the risk, benefits, and alternatives. Etoile protocol was followed. The neck was prepped and draped in sterile fashion and local anesthesia was achieved with lidocaine. 25 gauge needle was advanced under ultrasound guidance into an enlarged left thyroid and fine-needle aspiration was performed. 4 passes were performed and the patient tolerated the procedure well. FINDINGS: Good needle position within the left thyroid lobe demonstrated. IMPRESSION: Successful ultrasound-guided fine-needle aspiration of the thyroid [place], [place] T4, Freeon 06-28-2020 Interpretation and review of laboratory results Abnormal [place] Thyroxine, Free 0.82 ng/dL Low 0.93 - 1.7 ng/dL [place] TSH without Reflexon 020 TSH Qn 4.41 m[IU]/L [place], [place] HEAD NECK SOFT TISSUE THY ROIDon 06-28-2020 Thyroid gland is markedly heterogeneous and hypervascular. The left lobe is larger than the right and contains an ill-defined suspected nodule measuring 2.0 cm. Given the heterogeneous nature of the thyroid, it is uncertain if this represents a true nodule or manifestation of heterogeneous tissue. Following guidelines included below ultrasound-guided fine-needle aspiration is recommended. RECOMMENDATIONS: Nodule, left 1. ACR TI-RADS TR4: Recommend: Ultrasound-guided fine needle aspiration. ACR TI-RADS recommendations: TR4 (4-6 points): FNA if >= 1.5 cm; follow-up if 1.0-1.4 cm in 1, 2, 3, and 5 years [place] EXAMINATION: THYROID ULTRASOUND 06/28/2020 COMPARISON: None. HISTORY: ORDERING SYSTEM PROVIDED HISTORY: Thyromegaly FINDINGS: Right thyroid lobe: 4.0 x 1.9 x 2.6 cm Left thyroid lobe: 6.2 x 2.8 x 4.2 cm Isthmus: 5 mm Thyroid Gland: The thyroid gland is markedly heterogeneous and hypervascular. Nodules: See below: NODULE: Left 1 Size: 20 x 19 x 18 mm Location: Posterior left 1. Composition: Almost completely solid (2) 2. Echogenicity: Hypoechoic (2) heterogeneous 3. Shape: [id number] (0) 4. Margins: Ill-defined (0) 5. Echogenic foci: None (0) ACR TI-RADS total points: 4 ACR TI-RADS risk category: TR4 Cervical lymphadenopathy: No abnormal lymph nodes in the imaged portions of the neck. [place], [place] Giuseppe, Mh[employer] Incoming Radiant Results From [employer] - 06/28/2020 4:29 PM EDT EXAMINATION: THYROID ULTRASOUND 06/28/2020 COMPARISON: None. HISTORY: ORDERING SYSTEM PROVIDED HISTORY: Thyromegaly FINDINGS: Right thyroid lobe: 4.0 x 1.9 x 2.6 cm Left thyroid lobe: 6.2 x 2.8 x 4.2 cm Isthmus: 5 mm Thyroid Gland: The thyroid gland is markedly heterogeneous and hypervascular. Nodules: See below: NODULE: Left 1 Size: 20 x 19 x 18 mm Location: Posterior left 1. Composition: Almost completely solid (2) 2. Echogenicity: Hypoechoic (2) heterogeneous 3. Shape: [id number] (0) 4. Margins: Ill-defined (0) 5. Echogenic foci: None (0) ACR TI-RADS total points: 4 ACR TI-RADS risk category: TR4 Cervical lymphadenopathy: No abnormal lymph nodes in the imaged portions of the neck. IMPRESSION: Thyroid gland is markedly heterogeneous and hypervascular. The left lobe is larger than the right and contains an ill-defined suspected nodule measuring 2.0 cm. Given the heterogeneous nature of the thyroid, it is uncertain if this represents a true nodule or manifestation of heterogeneous tissue. Following guidelines included below ultrasound-guided fine-needle aspiration is recommended. RECOMMENDATIONS: Nodule, left 1. ACR TI-RADS TR4: Recommend: Ultrasound-guided fine needle aspiration. ACR TI-RADS recommendations: TR4 (4-6 points): FNA if >= 1.5 cm; follow-up if 1.0-1.4 cm in 1, 2, 3, and 5 years [place], [place] Basic Metabolic Panelon 08-2 Anion gap [Moles/Vol] 8 mmol/L Low 9 - 17 mmol/L [place] Bun/Cre Ratio 25 High [place], [place] Calcium [Mass/Vol] 9.3 mg/dL 8.6 - 10. 4 mg/dL [place] Chloride [Moles/Vol] 104 mmol/L 98 - 107 mmol/L [place] CO2 [Moles/Vol] 29 mmol/L 20 - 31 mmol/L [place] Creatinine [Mass/Vol] 0.97 mg/dL 0.7 - 1.2 mg/dL [place] GFR >60 >60 mL/min [place] GFR Non- >60 >60 mL/min [place] Glucose [Mass/Vol] 115 mg/dL High 70 - 99 mg/dL [place] Interpretation and review of laboratory results Abnormal [place] Potassium [Moles/Vol] 4.9 mmol/L 3.7 - 5.3 mmol/L [place] Sodium [Moles/Vol] 141 mmol/L 135 - 144 mmol/L [place] Urea nitrogen [Mass/Vol] 24 mg/dL High 8 - 23 mg/dL [place] CBC Auto Differentialon 05-08 Basophils (Bld) [#/Vol] 0.09 10*3/uL [place] Basophils/100 WBC (Bld) 1 % 0 - 2 % [place] Differential Type NOT REPORTED [place] Eosinophils (Bld) [#/Vol] 0.17 10*3/uL [place] Eosinophils/100 WBC (Bld) 2 % 1 - 4 % [place] Erythrocyte distribution width (RBC) [Ratio] 12.6 % 11.8 - 14.4 % [place] Hematocrit (Bld) [Volume fraction] 46.0 % 40.7 - 50.3 % [place] Hemoglobin (Bld) [Mass/Vol] 15.4 g/dL 13 - 17 g/dL [place] Immature granulocytes (Bld) [#/Vol] 0 % 0 [place] Immature granulocytes (Bld) [#/Vol] 0.03 10*3/uL [place] Interpretation and review of laboratory results Abnormal [place] Lymphocytes (Bld) [#/Vol] 1.15 10*3/uL [place] Lymphocytes/100 WBC (Bld) 16 % Low 24 - 43 % [place] MCH (RBC) [Entitic mass] 32.7 pg 25.2 - 33.5 pg [place] MCHC (RBC) [Mass/Vol] 33.5 g/dL 28.4 - 34.8 g/dL [place] MCV (RBC) [Entitic vol] 97.7 fL 82.6 - 102.9 fL [place] Monocytes (Bld) [#/Vol] 1.12 10*3/uL [place] Monocytes/100 WBC (Bld) 15 % High 3 - 12 % [place] Platelet mean volume (Bld) [Entitic vol] 10.0 fL 8.1 - 13.5 fL [place] Platelets (Bld) [#/Vol] NOT REPORTED [place] Platelets (Bld) [#/Vol] 171 10*3/uL [place] RBC (Bld) [#/Vol] 4.71 10*6/uL 4.21 - 5.7 7 m/uL [place] RBC morphology finding Nom (Bld) NOT REPORTED [place] Segmented neutrophils/100 WBC (Bld) 66 % High 36 - 65 % [place] Segs Absolute 4.84 [place] WBC (Bld) [#/Vol] 7.4 10*3/uL [place] WBC (Bld) [#/Vol] 0.0 10*3/uL 0.0 per 10 0 WBC [place] WBC Morphology NOT REPORTED [place], [place] CT Head WO Contraston 2019 Giuseppe, Mhpn Incoming Radiant Results From [employer] - 06/02/2020 4:20 PM EDT EXAMINATION: CT OF THE HEAD WITHOUT CONTRAST 06/02/2020 3:56 pm TECHNIQUE: CT of the head was performed without the administration of intravenous contrast. Dose modulation, iterative reconstruction, and/or weight based adjustment of the mA/kV was utilized to reduce the radiation dose to as low as reasonably achievable. COMPARISON: 07/25/2017 HISTORY: ORDERING SYSTEM PROVIDED HISTORY: facial droop TECHNOLOGIST PROVIDED HISTORY: facial droop FINDINGS: BRAIN/VENTRICLES: No evidence of acute infarct or acute intracranial hemorrhage. Anterior right frontal encephalomalacia redemonstrated. Stable diffuse parenchymal volume loss with mild chronic white matter microvascular ischemic changes and proportional sulcal and ventricular enlargement. Midline maintained. Basal cisterns patent. ORBITS: No acute abnormality. Chronic posttraumatic deformity of the right orbital medial wall and roof. Left phthisis bulbi. SINUSES: Partially visualized mucoperiosteal thickening in the maxillary sinuses. Bilateral middle ear and mastoid effusions. Prior left mastoidectomy. SOFT TISSUES/SKULL: No acute abnormality of the visualized skull or soft tissues. IMPRESSION: 1. No acute intracranial abnormality. 2. 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 3. Stable diffuse parenchymal volume loss with mild chronic white matter microvascular ischemic changes. 4. Bilateral middle ear and mastoid effusions and bilateral maxillary sinus mucoperiosteal thickening. Findings were discussed with KRISTI WEST at 4:17 pm on 06/02/2020. [place], [place] EXAMINATION: CT OF THE HEAD WITHOUT CONTRAST 06/02/2020 3:56 pm TECHNIQUE: CT of the head was performed without the administration of intravenous contrast. Dose modulation, iterative reconstruction, and/or weight based adjustment of the mA/kV was utilized to reduce the radiation dose to as low as reasonably achievable. COMPARISON: 07/25/2017 HISTORY: ORDERING SYSTEM PROVIDED HISTORY: facial droop TECHNOLOGIST PROVIDED HISTORY: facial droop FINDINGS: BRAIN/VENTRICLES: No evidence of acute infarct or acute intracranial hemorrhage. Anterior right frontal encephalomalacia redemonstrated. Stable diffuse parenchymal volume loss with mild chronic white matter microvascular ischemic changes and proportional sulcal and ventricular enlargement. Midline maintained. Basal cisterns patent. ORBITS: No acute abnormality. Chronic posttraumatic deformity of the right orbital medial wall and roof. Left phthisis bulbi. SINUSES: Partially visualized mucoperiosteal thickening in the maxillary sinuses. Bilateral middle ear and mastoid effusions. Prior left mastoidectomy. SOFT TISSUES/SKULL: No acute abnormality of the visualized skull or soft tissues. [place] 1. No acute intracranial abnormality. 2. 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 3. Stable diffuse parenchymal volume loss with mild chronic white matter microvascular ischemic changes. 4. Bilateral middle ear and mastoid effusions and bilateral maxillary sinus mucoperiosteal thickening. Findings were discussed with KRISTI WEST at 4:17 pm on 06/02/2020. [place] CTA HEAD NECK W CONTRASTon 0 06-02-2020 EXAMINATION: CTA OF THE HEAD AND NECK WITH CONTRAST 06/02/2020 5:44 pm: TECHNIQUE: CTA of the head and neck was performed with the administration of intravenous contrast. Multiplanar reformatted images are provided for review. MIP images are provided for review. Stenosis of the internal carotid arteries measured using NASCET criteria. Dose modulation, iterative reconstruction, and/or weight based adjustment of the mA/kV was utilized to reduce the radiation dose to as low as reasonably achievable. COMPARISON: None. HISTORY: ORDERING SYSTEM PROVIDED HISTORY: Right facial weakness TECHNOLOGIST PROVIDED HISTORY: Right facial weakness FINDINGS: CTA NECK: AORTIC ARCH/ARCH VESSELS: No dissection or arterial injury. No significant stenosis of the brachiocephalic or subclavian arteries. CAROTID ARTERIES: The cervical internal carotid arteries are suboptimally evaluated due to motion artifact. No dissection, arterial injury, or hemodynamically significant stenosis by NASCET criteria. VERTEBRAL ARTERIES: No dissection, arterial injury, or significant stenosis. SOFT TISSUES: No acute abnormality of the neck soft tissues within limits of motion artifact. Heterogeneous enlargement of the thyroid gland. Chronic calcified granuloma in the left upper lobe. BONES: No acute osseous abnormality. Moderate to severe degenerative changes in the cervical spine with mild degenerate anterolisthesis of C3 on C4 secondary to facet arthropathy. Severe degenerative changes of the right glenohumeral joint. CTA HEAD: ANTERIOR CIRCULATION: No significant stenosis of the intracranial internal carotid, anterior cerebral, or middle cerebral arteries. No aneurysm. POSTERIOR CIRCULATION: No significant stenosis of the vertebral, basilar, or posterior cerebral arteries. No aneurysm. The right posterior cerebral artery has origin. OTHER: No dural venous sinus thrombosis on this non-dedicated study. BRAIN: No enhancing mass or mass effect. Right frontal encephalomalacia. [place], [place] Giuseppe, Mhpn Incoming Radiant Results From [employer] - 06/02/2020 6:42 PM EDT EXAMINATION: CTA OF THE HEAD AND NECK WITH CONTRAST 06/02/2020 5:44 pm: TECHNIQUE: CTA of the head and neck was performed with the administration of intravenous contrast. Multiplanar reformatted images are provided for review. MIP images are provided for review. Stenosis of the internal carotid arteries measured using NASCET criteria. Dose modulation, iterative reconstruction, and/or weight based adjustment of the mA/kV was utilized to reduce the radiation dose to as low as reasonably achievable. COMPARISON: None. HISTORY: ORDERING SYSTEM PROVIDED HISTORY: Right facial weakness TECHNOLOGIST PROVIDED HISTORY: Right facial weakness FINDINGS: CTA NECK: AORTIC ARCH/ARCH VESSELS: No dissection or arterial injury. No significant stenosis of the brachiocephalic or subclavian arteries. CAROTID ARTERIES: The cervical internal carotid arteries are suboptimally evaluated due to motion artifact. No dissection, arterial injury, or hemodynamically significant stenosis by NASCET criteria. VERTEBRAL ARTERIES: No dissection, arterial injury, or significant stenosis. SOFT TISSUES: No acute abnormality of the neck soft tissues within limits of motion artifact. Heterogeneous enlargement of the thyroid gland. Chronic calcified granuloma in the left upper lobe. BONES: No acute osseous abnormality. Moderate to severe degenerative changes in the cervical spine with mild degenerate anterolisthesis of C3 on C4 secondary to facet arthropathy. Severe degenerative changes of the right glenohumeral joint. CTA HEAD: ANTERIOR CIRCULATION: No significant stenosis of the intracranial internal carotid, anterior cerebral, or middle cerebral arteries. No aneurysm. POSTERIOR CIRCULATION: No significant stenosis of the vertebral, basilar, or posterior cerebral arteries. No aneurysm. The right posterior cerebral artery has origin. OTHER: No dural venous sinus thrombosis on this non-dedicated study. BRAIN: No enhancing mass or mass effect. Right frontal encephalomalacia. IMPRESSION: 1. No acute arterial abnormality or hemodynamically significant arterial stenosis in the head or neck. 2. Heterogeneous enlargement of the thyroid gland. Nonemergent follow-up thyroid ultrasound is recommended for further evaluation if not previously performed. Reference: J Am Tiffanie Radiol. 2015 Nov;12(2): 143-50 [place] 1. No acute arterial abnormality or hemodynamically significant arterial stenosis in the head or neck. 2. Heterogeneous enlargement of the thyroid gland. Nonemergent follow-up thyroid ultrasound is recommended for further evaluation if not previously performed. Reference: J Am Tiffanie Radiol. 2014;12(2): 143-50 [place] Magnesiumon 06-02-2020 Magnesium [Mass/Vol] 2.4 mg/dL 1.6 - 2.6 mg/dL [place] Metabolic Panelon 06-02-2020 GFR/1.73 sq M predicted among non-blacks MDRD (S/P/Bld) [Vol rate/Area] [place], [place] Comment on above: Stage 1: Some kidney damage normal GFR Stage 2: Mild kidney damage GFR 60-89 Stage 3: Moderate kidney damage GFR 30-59 Stage 4: Severe kidney damage GFR 15-29 Stage 5: Severe kidney damage GFR <15 ESRD - chronic treatment by dialysis or transplant Average GFR for 60-6 9 years old: 85 mL/min/1.73sq m Chronic Kidney Disease: <60 mL/min/1.73sq m Kidney failure: <15 mL/min/1.73sq m eGFR calculated using average adult body mass. Additional eGFR calculator available at: http://www.[employer]kn[employer]/multiple_crcl_2012.htm XR CHEST STANDARD (2 VW)on 0 01-20-2020 No acute cardiopulmonary disease. [place] EXAMINATION: TWO XRA Y VIEWS OF THE CHEST 01/20/2020 8:20 am COMPARISON: 09/06/2019 HISTORY: ORDERING SYSTEM PROVIDED HISTORY: Cough TECHNOLOGIST PROVIDED HISTORY: cough FINDINGS: The heart and mediastinal structures are stable. The pulmonary vasculature is normal. Lungs are clear. Severe bilateral shoulder arthritis is noted. [place] Gi[place], Mhpn Incoming Radiant Results From [employer] - 01/20/2020 8:37 AM EDT EXAMINATION: TWO XRAY VIEWS OF THE CHEST 01/20/2020 8:20 am COMPARISON: 09/06/2019 HISTORY: ORDERING SYSTEM PROVIDED HISTORY: Cough TECHNOLOGIST PROVIDED HISTORY: cough FINDINGS: The heart and mediastinal structures are stable. The pulmonary vasculature is normal. Lungs are clear. Severe bilateral shoulder arthritis is noted. IMPRESSION: No acute cardiopulmonary disease. [place] EGDOrdered By: Nemesio Mayen on 11-02-2019 No dictation [facility] Work Phone: ED Clinical Summaryon 2018 ED Clinical Summary [id number] [place], [place] [id number] ED Clinical Summary Person Information Name: Fer Sandoval/Walter_Cliff Age: 59 Years : 1960 Sex: Male PCP: Parth MIX, Jessica Mcmillan Marital Status: Single Phone: Race: White Ethnicity: Not or Language: Swedish Visit Reason: Difficulty swallowing; Difficulty swallowing Acuity: 3 Enc Type: Emergency Med Service: Emergency Medicine Arrival: 09/06/2019 22:17:27 Discharge: 09/06/2019 22:45:00 LOS: 000 00:28 Checkin: 09/06/2019 22:17:27 Checkout: 09/06/2019 22:45:00 Dispo Type: Other Healthcare Facility Address: [address] [place] [address] [place] [address] Provider Notes: Diagnosis: 1:Esophageal obstruction due to food impaction Problems No Problems Documented Smoking Status: Smoking Status Never (less than 100 in lifetime) Functional Status: Sensory Deficits: History of Falls: Mobility Assistance Prior to Admission: ADLs: Current Level of Assistance for Self-Care/Mobility: Cognitive Status: Allergies penicillin (unkown) Laboratory or Other Results This Visit (last charted value for your 09/06/2019 visit) No Laboratory or Other Results This Visit Measurements: Height: Weight: 91.7 kg Blood Pressure: /81 mmHg BMI: Procedures No Procedures Documented Immunizations No Immunizations Documented This Visit Final Med List: Medications that have not changed Other Medications acetaminophen (Tylenol Regular Strength 325 mg oral tablet) 2 Tabs Oral (given by mouth) every 4 hours as needed as needed for pain. not to exceed 4 tablets per day. Last Dose: ____ clotrimazole topical (clotrimazole 1% topical cream) 1 Application Topical (on the skin) 2 times a day. Last Dose: ____ loratadine (loratadine 10 mg oral tablet) 1 Tabs Oral (given by mouth) every day. Last Dose: ____ naproxen (naproxen 500 mg oral tablet) 1 Tabs Oral (given by mouth) every day. scheduled. Last Dose: ____ oxybutynin (oxybutynin 5 mg/24 hours oral tablet, extended release) 1 Tabs Oral (given by mouth) every day. Last Dose: ____ raNITIdine (raNITIdine 150 mg oral tablet) 1 Tabs Oral (given by mouth) every day. Last Dose: ____ simvastatin (simvastatin 80 mg oral tablet) 1 Tabs Oral (given by mouth) every day. Last Dose: ____ Other Medications acetaminophen (Tylenol Regular Strength 325 mg oral tablet) 2 Tabs Oral (given by mouth) every 4 hours as needed as needed for pain. not to exceed 4 tablets per day. clotrimazole topical (clotrimazole 1% topical cream) 1 Application Topical (on the skin) 2 times a day. loratadine (loratadine 10 mg oral tablet) 1 Tabs Oral (given by mouth) every day. naproxen (naproxen 500 mg oral tablet) 1 Tabs Oral (given by mouth) every day. scheduled. oxybutynin (oxybutynin 5 mg/24 hours oral tablet, extended release) 1 Tabs Oral (given by mouth) every day. raNITIdine (raNITIdine 150 mg oral tablet) 1 Tabs Oral (given by mouth) every day. simvastatin (simvastatin 80 mg oral tablet) 1 Tabs Oral (given by mouth) every day. Care Team Members: Attending Physician: Fer Page III, MD Consulting Physician: Referring Physician: Provider Role Assigned Unassigned Fer Page III, MD, ED Provider 09/06/2019 22:18:37 09/06/2019 22:24:27 Tono MIX, [facility] ED Provider 09/06/2019 22:18:43 09/06/2019 22:24:36 Fer Page III, MD ED Provider 09/06/2019 22:24:34 Kat Villareal ED Nurse 09/06/2019 22:31:48 Follow up: With: Address: When: Jessica Alba [address], [place] [phone] Business (1) Within 2 to 4 days Discharge Orders: Discharge Patient 09/06/19 22:24:00 EST, Discharge to Home, Self, Esophageal obstruction due to food impaction Patient Education Information: ESOPHAGEAL FOREIGN BODY, [facility] Help [facility]: . [facility] Hotline: [place] Tobacco Quit Line: [facility] ([place], [place]) [address]: [phone] [place], [place]) [address]: [phone] [facility] [address], [place]: [phone] [facility] ED Note-Physicianon 09-07-20 ED Note-Physician Chief Complaint pt tx from [facility], pt coughed up food bolus, chewed it up, and swallowed it History of Present Illness Patient sent by EMS from [facility] after he presented there with esophageal food bolus. He was eating a hotdog Choked on some of it and was unable to clear it. He presented to the ED and [place] but they did not have GI coverage so they transferred him here to [facility]. In route EMS reports that he had a few bumps on the road and the patient coughed up the food bolus. He properly treated again and swallowed it and has been resting comfortably on the cot since then. On arrival to the ED here he is able tolerate a couple water with no difficulty and has no other foreign body sensation. Review of Systems GENERAL: [Negative for weakness, malaise] EYES: [Negative for injury, pain, redness, discharge] ENT: [Negative for injury, pain , sore throat and discharge] NECK: [Negative for injury, pain, swelling, and stiffness] CARDIOVASCULAR: [Negative for chest pain, palpitations] RESPIRATORY: [Negative for shortness of breath, cough, wheezing, and pleuritic chest pain] ABDOMEN/GI: [Negative for pain, nausea, vomiting] BACK: [Negative for injury or bruising] : [Negative for injury, bleeding, discharge, frequency, hematuria, urgency] MUSCULOSKELETAL: [Negative for arthralgias, injury and deformity] SKIN: [Negative for injury, rash, discoloration] NEURO: [Negative for focal weakness, numbness, tingling, and seizure] ALLERGY/IMMUNOLOGY: [Negative for hives, rash, and new allergies] ENDOCRINE: [Negative for neck swelling, polydipsia, polyuria, marked weight changes, heat/cold intolerance] HEMATOLOGIC/LYMPHATIC : [Negative for swollen lymph nodes, abnormal bleeding, and unusual bruising] Physical Exam CONSTITUTIONAL: [well appearing in no acute distress] SKIN: [Warm, dry, and intact without rash] EYES: [extraocular movements are grossly intact, clear conjunctiva] HENT: [Normocephalic, atraumatic, moist mucus membranes] NECK: [no obvious swelling, normal range of motion] PULMONARY: [normal chest rise and fall, no respiratory distress or stridor CARDIOVASCULAR: [regular rate, distal extremities are warm and well perfused] GASTROINSTESTINAL: [nondistended, non-tender] GENITOURINARY: [deferred] NEUROLOGIC: [normal speech, moves all extremities] MUSCULOSKELETAL: [no gross deformities, atraumatic] PSYCHIATRIC: [normal mood and affect] Vitals & Measurements T: 36.6 ?C (Oral) RR: 18 BP: 99/71 SpO2: 97% DOSE WT: 91.7 kg Additional Vitals Peripheral Pulse Rate: 74 bpm Procedure No qualifying data available. ASA Documentation Medical Decision Making Patient cleared fluid bolus in route to our ED and was able to tolerate by mouth intake without difficulty. He'll be discharged home. Assessment/Plan 1. Esophageal obstruction due to food impaction Ordered: Discharge Patient Problem List/Past Medical History Ongoing Bursitis Cataracts, bilateral Down syndrome Hernia, umbilical Hip osteoarthritis Mentally disabled Historical No qualifying data Medications Home clotrimazole 1% topical cream, 1 jovon, Topical, BID loratadine 10 mg oral tablet, 10 mg, 1 tabs, Oral, Daily naproxen 500 mg oral tablet, 500 mg, 1 tabs, Oral, Daily oxybutynin 5 mg/24 hours oral tablet, extended release, 5 mg, 1 tabs, Oral, Daily raNITIdine 150 mg oral tablet, 150 mg, 1 tabs, Oral, Daily simvastatin 80 mg oral tablet, 80 mg, 1 tabs, Oral, Daily Tylenol Regular Strength 325 mg oral tablet, 650 mg, 2 tabs, Oral, q4hr, PRN Inpatient No active inpatient medications Prescriptions No active Prescriptions Allergies penicillin (unkown) Social History Alcohol Never Substance Abuse Denies All Tobacco Never (less than 100 in lifetime) Use:. Family History Family history is unknown Diagnostic Results XRay No qualifying data available (XRay) Computerized Tomagraphy No qualifying data available (CT) Ultrasound No qualifying data available (Ultrasound) Magnetic Resonance Imaging No qualifying data available (MRI) Electronically signed by Fer Page III, MD 09/07/19 02:[address] [facility] Basic Metabolic Panelon 12-0 Anion gap [Moles/Vol] 9 mmol/L 9 - 17 mmol/L [place] Bun/Cre Ratio 25 High [place] Calcium [Mass/Vol] 9.0 mg/dL 8.6 - 10. 4 mg/dL [place] Chloride [Moles/Vol] 101 mmol/L 98 - 107 mmol/L [place] CO2 [Moles/Vol] 28 mmol/L 20 - 31 mmol/L [place] Creatinine [Mass/Vol] 0.8 mg/dL 0.7 - 1.2 mg/dL [place] GFR >60 >60 mL/min [place] GFR Non- >60 >60 mL/min [place] Glucose [Mass/Vol] 116 mg/dL High 70 - 99 mg/dL [place] Interpretation and review of laboratory results Abnormal [place] Potassium [Moles/Vol] 4.5 mmol/L 3.7 - 5.3 mmol/L [place] Sodium [Moles/Vol] 138 mmol/L 135 - 144 mmol/L [place] Urea nitrogen [Mass/Vol] 20 mg/dL 8 - 23 mg/dL [place] CBC auto differentialon 12-0 -2018 Basophils (Bld) [#/Vol] 0.08 10*3/uL [place] Basophils/100 WBC (Bld) 1 % 0 - 2 % [place] Differential Type NOT REPORTED [place] Eosinophils (Bld) [#/Vol] 0.19 10*3/uL [place] Eosinophils/100 WBC (Bld) 3 % 1 - 4 % [place] Erythrocyte distribution width (RBC) [Ratio] 12.9 % 11.8 - 14.4 % [place] Hematocrit (Bld) [Volume fraction] 43.6 % 40.7 - 50.3 % [place] Hemoglobin (Bld) [Mass/Vol] 14.3 g/dL 13 - 17 g/dL [place] Immature granulocytes (Bld) [#/Vol] 10*3/uL [place] Immature granulocytes (Bld) [#/Vol] 0 % 0 [place] Interpretation and review of laboratory results Abnormal [place] Lymphocytes (Bld) [#/Vol] 0.82 10*3/uL Low [place] Lymphocytes/100 WBC (Bld) 13 % Low 24 - 43 % [place] MCH (RBC) [Entitic mass] 33.1 pg 25.2 - 33.5 pg [place] MCHC (RBC) [Mass/Vol] 32.8 g/dL 28.4 - 34.8 g/dL [place] MCV (RBC) [Entitic vol] 100.9 fL 82.6 - 102.9 fL [place] Monocytes (Bld) [#/Vol] 0.77 10*3/uL [place] Monocytes/100 WBC (Bld) 12 % 3 - 12 % [place] Platelet mean volume (Bld) [Entitic vol] 9.5 fL 8.1 - 13.5 fL [place] Platelets (Bld) [#/Vol] NOT REPORTED [place] Platelets (Bld) [#/Vol] 173 10*3/uL [place] RBC (Bld) [#/Vol] 4.32 10*6/uL 4.21 - 5.7 7 m/uL [place] RBC morphology finding Nom (Bld) NOT REPORTED [place] Segmented neutrophils/100 WBC (Bld) 71 % High 36 - 65 % [place] Segs Absolute 4.34 [place] WBC (Bld) [#/Vol] 0.0 10*3/uL 0.0 per 10 0 WBC [place] WBC (Bld) [#/Vol] 6.2 10*3/uL [place] WBC Morphology NOT REPORTED [place] Metabolic Panelon 09-06-2019 GFR/1.73 sq M predicted among non-blacks MDRD (S/P/Bld) [Vol rate/Area] [place] Comment on above: Stage 1: Some kidney damage normal GFR Stage 2: Mild kidney damage GFR 60-89 Stage 3: Moderate kidney damage GFR 30-59 Stage 4: Severe kidney damage GFR 15-29 Stage 5: Severe kidney damage GFR <15 ESRD - chronic treatment by dialysis or transplant Average GFR for 60-6 9 years old: 85 mL/min/1.73sq m Chronic Kidney Disease: <60 mL/min/1.73sq m Kidney failure: <15 mL/min/1.73sq m eGFR calculated using average adult body mass. Additional eGFR calculator available at: http://www.[employer]Jam.eeGeo/multiple_crcl_2012.htm XR CHEST PORTABLEon 09-06-20 19 Giuseppe, Mhpn Incoming Radiant Results From [employer] - 09/06/2019 9:11 PM EST EXAMINATION: ONE XRAY VIEW OF THE CHEST 09/06/2019 8:46 pm COMPARISON: December 03, 2018 HISTORY: ORDERING SYSTEM PROVIDED HISTORY: aspiration concern TECHNOLOGIST PROVIDED HISTORY: aspiration concern FINDINGS: Cardiac silhouette is mildly enlarged. Lungs appear clear. No acute bony abnormality. IMPRESSION: No acute findings [place] EXAMINATION: ONE XRA Y VIEW OF THE CHEST 09/06/2019 8:46 pm COMPARISON: December 03, 2018 HISTORY: ORDERING SYSTEM PROVIDED HISTORY: aspiration concern TECHNOLOGIST PROVIDED HISTORY: aspiration concern FINDINGS: Cardiac silhouette is mildly enlarged. Lungs appear clear. No acute bony abnormality. [place] No acute findings [place] Lipid Panelon 08-27-2019 Cholesterol [Mass/Vol] 136 mg/dL <200 [place] Comment on above: Cholesterol Guidelines: <200 Desirable 200-240 Borderline >240 Undesirable Cholesterol in HDL [Mass/Vol] 51 mg/dL >40 [place] Comment on above: HDL Guidelines: <40 Undesirable 40-59 Borderline >59 Desirable Cholesterol in LDL [Mass/Vol] 65 mg/dL 0 - 130 mg/dL [place] Comment on above: LDL Guidelines: <100 Desirable 100-129 Near to/above Desirable 130-159 Borderline >159 Undesirable Direct (measured) LDL and calculated LDL are not interchangeable tests. Cholesterol in VLDL [Mass/Vol] NOT REPORTED 1 - 30 mg/dL [place] Cholesterol.total/C holesterol in HDL [Mass ratio] 2.7 {ratio} <5 [place] Triglyceride [Mass/Vol] 99 mg/dL <150 [place] Comment on above: Triglyceride Guidelines: <150 Desirable 150-199 Borderline 200-499 High >499 Very high Based on AHA Guidelines for fasting triglyceride, July 2012. CBC Auto Differentialon 08-07 Basophils (Bld) [#/Vol] 0.10 10*3/uL [place] Basophils/100 WBC (Bld) 2 % 0 - 2 % [place] Differential Type NOT REPORTED [place] Eosinophils (Bld) [#/Vol] 0.14 10*3/uL [place] Eosinophils/100 WBC (Bld) 3 % 1 - 4 % [place] Erythrocyte distribution width (RBC) [Ratio] 12.6 % 11.8 - 14.4 % [place] Hematocrit (Bld) [Volume fraction] 46.0 % 40.7 - 50.3 % [place] Hemoglobin (Bld) [Mass/Vol] 14.8 g/dL 13 - 17 g/dL [place] Immature granulocytes (Bld) [#/Vol] 0 % 0 [place] Immature granulocytes (Bld) [#/Vol] 10*3/uL [place] Interpretation and review of laboratory results Abnormal [place] Lymphocytes (Bld) [#/Vol] 1.20 10*3/uL [place] Lymphocytes/100 WBC (Bld) 22 % Low 24 - 43 % [place] MCH (RBC) [Entitic mass] 33.0 pg 25.2 - 33.5 pg [place] MCHC (RBC) [Mass/Vol] 32.2 g/dL 28.4 - 34.8 g/dL [place] MCV (RBC) [Entitic vol] 102.4 fL 82.6 - 102.9 fL [place] Monocytes (Bld) [#/Vol] 0.71 10*3/uL [place] Monocytes/100 WBC (Bld) 13 % High 3 - 12 % [place] Platelet mean volume (Bld) [Entitic vol] 9.4 fL 8.1 - 13.5 fL [place] Platelets (Bld) [#/Vol] 210 10*3/uL [place] Platelets (Bld) [#/Vol] NOT REPORTED [place] RBC (Bld) [#/Vol] 4.49 10*6/uL 4.21 - 5.7 7 m/uL [place] RBC morphology finding Nom (Bld) NOT REPORTED [place] Segmented neutrophils/100 WBC (Bld) 60 % 36 - 65 % [place] Segs Absolute 3.32 [place] WBC (Bld) [#/Vol] 0.0 10*3/uL 0.0 per 10 0 WBC [place] WBC (Bld) [#/Vol] 5.5 10*3/uL [place] WBC Morphology NOT REPORTED [place] Comprehensive Metabolic Pane mirna 11-15-2019 Albumin [Mass/Vol] 3.6 g/dL 3.5 - 5.2 g/dL [place] Albumin/Globulin [Mass ratio] 0.9 {ratio} Low [place] ALP [Catalytic activity/Vol] 86 U/L 40 - 129 U/L [place] ALT [Catalytic activity/Vol] 12 U/L 5 - 41 U/L [place] Anion gap [Moles/Vol] 10 mmol/L 9 - 17 mmol/L [place] AST [Catalytic activity/Vol] 16 U/L <40 [place] Bilirubin Ql (U) 0.26 mg/dL Low 0.3 - 1.2 mg/dL [place] Bun/Cre Ratio 20 [place] Calcium [Mass/Vol] 8.9 mg/dL 8.6 - 10. 4 mg/dL [place] Chloride [Moles/Vol] 100 mmol/L 98 - 107 mmol/L [place] CO2 [Moles/Vol] 28 mmol/L 20 - 31 mmol/L [place] Creatinine [Mass/Vol] 0.83 mg/dL 0.7 - 1.2 mg/dL [place] GFR >60 >60 mL/min [place] GFR Non- >60 >60 mL/min [place] Glucose [Mass/Vol] 101 mg/dL High 70 - 99 mg/dL [place] Interpretation and review of laboratory results Abnormal [place] Potassium [Moles/Vol] 4.1 mmol/L 3.7 - 5.3 mmol/L [place] Protein [Mass/Vol] 7.4 g/dL 6.4 - 8.3 g/dL [place] Sodium [Moles/Vol] 138 mmol/L 135 - 144 mmol/L [place] Urea nitrogen [Mass/Vol] 17 mg/dL 8 - 23 mg/dL [place] Metabolic Panelon 08-21-2019 GFR/1.73 sq M predicted among non-blacks MDRD (S/P/Bld) [Vol rate/Area] [facility] [place] Comment on above: Average GFR for 60-6 9 years old: 85 mL/min/1.73sq m Chronic Kidney Disease: <60 mL/min/1.73sq m Kidney failure: <15 mL/min/1.73sq m eGFR calculated using average adult body mass. Additional eGFR calculator available at: http://www.Appknox/multiple_crcl_2012.htm Stage 1: Some kidney damage normal GFR Stage 2: Mild kidney damage GFR 60-89 Stage 3: Moderate kidney damage GFR 30-59 Stage 4: Severe kidney damage GFR 15-29 Stage 5: Severe kidney damage GFR <15 ESRD - chronic treatment by dialysis or transplant XR CHEST STANDARD (2 VW)on 10-21-2018 No acute process. Sophia Mcmillan [facility] [place] EXAMINATION: TWO XRA Y VIEWS OF THE CHEST 08/21/2019 5:26 pm COMPARISON: 12/03/2018 HISTORY: ORDERING SYSTEM PROVIDED HISTORY: Cough TECHNOLOGIST PROVIDED HISTORY: fatigue, cough FINDINGS: The lungs are without acute focal process. There is no effusion or pneumothorax. The cardiomediastinal silhouette is stable. The osseous structures are stable. [facility] M[facility]pn Incoming Radiant Results From [employer] - 08/21/2019 5:40 PM EST EXAMINATION: TWO XRAY VIEWS OF THE CHEST 08/21/2019 5:26 pm COMPARISON: 12/03/2018 HISTORY: ORDERING SYSTEM PROVIDED HISTORY: Cough TECHNOLOGIST PROVIDED HISTORY: fatigue, cough FINDINGS: The lungs are without acute focal process. There is no effusion or pneumothorax. The cardiomediastinal silhouette is stable. The osseous structures are stable. IMPRESSION: No acute process. [facility] [place] Progress Noteon 06-16-2018 HIM IP Note OR Community Coordinator Normal [facility] Progress Noteon 05-05-2018 HIM IP Note OR Community Coordinator Normal [facility] HIM IP Note OR Community Coordinator Normal [facility] Progress Noteon 03-17-2018 HIM IP Note OR Community Coordinator Normal [facility] HIM IP Note OR Community Coordinator Normal [facility] Vital Signs Date Time Vital Sign Value Performing Clinician Santiagoi litolesya 05-31-2022 13:24-0400 Body temperature 97 [degF] Rhina March MD Work Phone: [facility] [email or web address] 05-31-2022 13:24-0400 Diastolic blood pressure 55 mm[Hg] Rhina March MD Work Phone: [facility] [email or web address] 05-31-2022 13:24-0400 Heart rate 71 /min Rhina March MD Work Phone: [facility] [email or web address] 05-31-2022 13:24-0400 Respiratory rate 17 /min Rhina March MD Work Phone: [facility] [email or web address] 05-31-2022 13:24-0400 SaO2% (BldA) [Mass fraction] 95 % Rhina March MD Work Phone: [facility] [email or web address] 05-31-2022 13:24-0400 Systolic blood pressure 95 mm[Hg] Rhina March MD Work Phone: [facility] [email or web address] 05-31-2022 05:15-0400 Body mass index (BMI) [Ratio] 30.61 kg/m2 Rhina March MD Work Phone: [facility] [email or web address] 05-31-2022 05:15-0400 Body weight 73.48 kg Rhina March MD Work Phone: [facility] [employer] 05-30-2022 06:31-0400 Body height 154.9 cm Rhina March MD Work Phone: [facility] 08-10-2021 15:18-0400 Body temperature 97.39 [degF] Jessica Alba MD Work Phone: [facility] Work Phone: 08-10-2021 15:18-0400 Diastolic blood pressure 77 mm[Hg] Jessica Alba MD Work Phone: [facility] Work Phone: 08-10-2021 15:18-0400 Heart rate 118 /min Jessica Alba MD Work Phone: [facility] Work Phone: 08-10-2021 15:18-0400 Respiratory rate 18 /min Jessica Alba MD Work Phone: [facility] Work Phone: 08-10-2021 15:18-0400 SaO2% (BldA) [Mass fraction] 98 % Jessica Alba MD Work Phone: [facility] Work Phone: 08-10-2021 15:18-0400 Systolic blood pressure 117 mm[Hg] Jessica Alba MD Work Phone: [facility] Work Phone: 07-13-2021 10:45-0400 Diastolic blood pressure 80 mm[Hg] Can Consolo DPM Work Phone: [facility] Work Phone: 07-13-2021 10:45-0400 Heart rate 72 /min Can Consolo DPM Work Phone: [facility] Work Phone: 07-13-2021 10:45-0400 Respiratory rate 18 /min Can Consolo DPM Work Phone: [facility] Work Phone: 07-13-2021 10:45-0400 SaO2% (BldA) [Mass fraction] 94 % Can Consolo DPM Work Phone: [facility] Work Phone: 07-13-2021 10:45-0400 Systolic blood pressure 104 mm[Hg] Can Consolo DPM Work Phone: [facility] Work Phone: 07-13-2021 10:20-0400 Body temperature 99.61 [degF] Can Consolo DPM Work Phone: [facility] Work Phone: 07-13-2021 09:08-0400 Body height 147.3 cm Can Punch!storm DPM Work Phone: [facility] Work Phone: 07-13-2021 09:08-0400 Body mass index (BMI) [Ratio] 31.56 kg/m2 Can Punch!storm DPM Work Phone: [facility] Work Phone: 07-13-2021 09:08-0400 Body weight 68.49 kg Can Giordano DPM Work Phone: [facility] Work Phone: 07-26-2020 14:31-0400 BP Diastolic 66 mm[Hg] [facility] [place] 07-26-2020 14:31-0400 BP Systolic 112 mm[Hg] [place], [place] 07-26-2020 14:31-0400 Pulse (Heart Rate) 76 /min [facility], [place] 07-26-2020 14:31-0400 Pulse Oximetry 96 % [place], [place] 07-26-2020 14:31-0400 Respiratory Rate 16 /min [facility], [place] 06-02-2020 18:18-0400 Pulse (Heart Rate) 66 /min Kristi Cortes [facility]- [place], [place] 06-02-2020 17:10-0400 Pulse Oximetry 97 % Kristi [facility], [place] 06-02-2020 16:02-0400 BP Diastolic 92 mm[Hg] Kristi [place] [facility] - [place], [place] 06-02-2020 16:02-0400 BP Systolic 109 mm[Hg] Kristi [place] [facility] [place], [place] 06-02-2020 15:37-0400 Body Temperature 97.59 [degF] [facility] [place] [place] 06-02-2020 15:37-0400 Respiratory Rate 16 /min Kristi Jenna Cortes [facility]- [place], [place] 11-02-2019 12:00-0500 Diastolic blood pressure 75 mm[Hg] Nemesio Mayen MD Work Phone: [facility] Work Phone: 11-02-2019 12:00-0500 Heart rate 57 /min Nemesio Mayen MD Work Phone: [facility] Work Phone: 11-02-2019 12:00-0500 Respiratory rate 16 /min Nemesio Mayen MD Work Phone: [facility] Work Phone: 11-02-2019 12:00-0500 SaO2% (BldA) [Mass fraction] 97 % Nemesio Mayen MD Work Phone: [facility] Work Phone: 11-02-2019 12:00-0500 Systolic blood pressure 123 mm[Hg] Nemesio Mayen MD Work Phone: [facility] Work Phone: 11-02-2019 11:13-0500 Body temperature 97.2 [degF] Nemesio Mayen MD Work Phone: [facility] Work Phone: 11-02-2019 09:43-0500 Body height 147.3 cm Nemesio Mayen MD Work Phone: [facility] Work Phone: 11-02-2019 09:43-0500 Body mass index (BMI) [Ratio] 39.92 kg/m2 Nemesio Mayen MD Work Phone: [facility] Work Phone: 11-02-2019 09:43-0500 Body weight 86.64 kg Nemesio Mayen MD Work Phone: [facility] Work Phone: 09-06-2019 20:20-0500 Pulse Oximetry 96 % [facility]ivaCrow[facility] , [place] 09-06-2019 20:12-0500 BMI (Body Mass Index) 41.38 kg/m2 [facility] [place], [place] 09-06-2019 20:12-0500 Body Temperature 96.91 [degF] [place], [place] 09-06-2019 20:12-0500 Body weight 89.81 kg [place], [place] 09-06-2019 20:12-0500 BP Diastolic 88 mm[Hg] [place] 09-06-2019 20:12-0500 BP Systolic 108 mm[Hg] [facility] , [place] 09-06-2019 20:12-0500 Pulse (Heart Rate) 81 /min [place] 09-06-2019 20:12-0500 Respiratory Rate 18 /min [place] Encounters Encounter Date Encounter Type Care Provider Facility Start: 05-29-2022 End: 05-31-2022 Evaluation and management of inpatient [facility] Start: 05-29-2022 End: 05-31-2022 Evaluation and management of inpatient Rhina March MD Work Phone: [facility] Comment on above: COPD exacerbation (H CC) (Primary Dx) Start: 01-10-2022 Encounter for genera l adult medical examination without abnormal findings DR JESSICA ALBA [facility] Start: 01-06-2022 End: 01-07-[address] JESSICA ALBA Facility:[facility] Start: 01-06-2022 End: 01-07-2022 Encounter for general adult medical examination without abnormal findings DR JESSICA ALBA Facility:[facility] Start: 12-27-2021 End: 12-30-2021 ambulatory [facility] Start: 11-25-2021 End: 11-25-[address] DOCTOR CALDERON Facility:[facility] Start: 11-18-2021 End: 11-22-2021 Evaluation and management of inpatient [facility] Facility:[facility] Start: 08-10-2021 End: 08-10-2021 Emergency department patient visit [facility] Start: 08-10-2021 End: 08-10-2021 Emergency department patient visit Jessica Alba MD Work Phone: [facility] ED Comment on above: Contusion of right h and, initial encounter (Primary Dx); Injury of head, initial encounter; Contusion of face, initial encounter Start: 07-13-2021 End: 07-13-2021 ambulatory JESSICA MARGARITA [facility] Start: 07-13-2021 End: 07-13-2021 Subsequent hospital visit by physician Can Giordano DPM Work Phone: [facility] OR Start: 05-16-2021 End: 05-17-2021 ambulatory HAYDEE HAMMOND Facility:[facility]1 Start: 02-17-2021 End: 02-17-2021 Subsequent hospital visit by physician Jessica Alba MD Work Phone: [facility] Laboratory Start: 11-17-2020 End: 11-17-2020 Subsequent hospital visit by physician Carl Garcia [facility] Physical Therapy Comment on above: Arrived Start: 07-26-2020 End: 07-28-2020 Subsequent hospital visit by physician Netta Gen Radiologist [facility] Ultrasound Comment on above: Dysphagia, intermitt ent solid food / normal EGD 2019; Thyromegaly / incidental finding on CT scan of the neck 2019 Start: 06-28-2020 End: 06-30-2020 Subsequent hospital visit by physician [facility] Ultrasound Room [facility] Ultrasound Comment on above: Thyromegaly / incide ntal finding on CT scan of the neck 2019 Start: 06-02-2020 End: 06-02-2020 Emergency department patient visit Kristi West [facility] ED Comment on above: Facial droop (Primar y Dx); Enlarged thyroid Start: 03-23-2020 End: 03-23-2020 Subsequent hospital visit by physician Myla Campbell [facility] Physical Therapy Comment on above: Arrived Start: 03-17-2020 End: 03-17-2020 Subsequent [facility] Start: 03-11-2020 End: 03-11-2020 Subsequent hospital visit by physician Nehemias Lombardi [facility] Physical Therapy Comment on above: Arrived Start: 03-01-2020 End: 03-01-2020 Subsequent hospital visit by physician Myla Campbell [facility] Physical Therapy Comment on above: Arrived Start: 01-20-2020 End: 01-22-2020 Subsequent hospital visit by physician Netta Encarnacion Dr Room 4 [facility] Radiology Comment on above: Cough Start: 11-02-2019 End: 11-02-2019 Subsequent hospital visit by physician Nemesio Mayen MD Work Phone: [facility] OR Start: 09-07-2019 End: 09-07-2019 Emergency department patient visit JESSICA ALBA Facility:[facility] Start: 09-06-2019 End: 09-06-2019 Emergency department patient visit Siva Pierre Work Phone: [facility] ED Comment on above: Esophageal obstructi on due to food impaction (Primary Dx) Start: 08-27-2019 End: 08-27-2019 Subsequent hospital visit by physician Jessica Alba [facility] Laboratory Comment on above: Mixed hyperlipidemia Start: 08-21-2019 End: 08-23-2019 Subsequent hospital visit by physician Netta Encarnacion Dr Room 4 [facility] Laboratory Comment on above: Malaise and fatigue Cough; SOB (shortness of breath) Start: 04-29-2017 End: 2018 Patient encounter status Jessica Alba MD Work Phone: [facility] Work Phone: Procedures Date Procedure Procedure Detail Performing Clinician Start: 05-31-2022 BASIC METABOLIC PANEL W/ REFLEX TO MG FOR LOW K Gabrielle A Capulin PROTECTION SPECIALIST - [employer] Work Phone: Start: 05-31-2022 Blood count complete auto&auto difrntl wbc Gabrielle Sirena Capulin PROTECTION SPECIALIST - [employer] Work Phone: Start: 05-30-2022 Radiologic exam swallow function contrast study Gabrielle Delatorre PROTECTION SPECIALIST - [employer] Work Phone: Start: 05-30-2022 BASIC METABOLIC PANEL W/ REFLEX TO MG FOR LOW K Gabrielle Sirena Juan Ramon PROTECTION SPECIALIST - [employer] Work Phone: Start: 05-30-2022 Blood count complete auto&auto difrntl wbc Gabrielle Sirena Juan Ramon PROTECTION SPECIALIST - [employer] Work Phone: Start: 05-29-2022 FINANCIAL SERVICES COUNSELOR CLINICAL BEDSIDE SWALLOW EVALUATION & TREATMENT Gabrielle Delatorre PROTECTION SPECIALIST - [employer] Work Phone: Start: 05-29-2022 Culture bacterial blood aerobic w/id isolates Rhina March MD Work Phone: Start: 05-29-2022 Ecg routine ecg w/least 12 lds i&r only Rhina March MD Work Phone: Start: 05-29-2022 Radiologic exam chest single view Catarino March MD Work Phone: Start: 05-29-2022 COVID-19, RAPID Rhina March MD Work Phone: Start: 05-29-2022 Blood gases any combination ph pco2 po2 co2 hco3 Rhina March MD Work Phone: Start: 05-29-2022 Comprehensive metabolic panel Rhina Perkins dd, MD Work Phone: Start: 05-29-2022 CULTURE, BLOOD 1 Rhina March MD Work Phone: Start: 01-06-2022 PSA screening MIKE ARMIJO Comment on above: Performed By: #### PHVEN #### [facility] [address] [place] [address] Dr. Jarek Barrera Start: 08-10-2021 Ct cervical spine w/o contrast material Nemesio Rios PA-C Work Phone: Start: 08-10-2021 Ct head/brain w/o contrast material Nemesio Rios PA-C Work Phone: Start: 08-10-2021 Radex hand minimum 3 views Kian estrada MD Work Phone: Start: 02-17-2021 Cul bact xcpt urine blood/stool aerobic isol Haydee Hammond PA-C Work Phone: Start: 07-26-2020 Biopsy thyroid percutaneous core needle Jessica Espinoza Parth Work Phone: Start: 07-26-2020 Level iv surg pathology gross&microscopic exam Kianna Wyman Work Phone: Start: 06-28-2020 Us soft tissue head & neck real time imge docm Jessica Alba Work Phone: Start: 06-28-2020 Assay of free thyroxine Jessica Donato s Work Phone: Start: 06-28-2020 Assay of thyroid stimulating hormone tsh Jessica Alba Work Phone: Start: 06-02-2020 Ct angiography neck w/contrast/noncontrast Kristi Watttrick Start: 06-02-2020 Assay of magnesium Kristi Alfredozpatrick Start: 06-02-2020 Basic metabolic panel calcium total Kristi West Start: 06-02-2020 Blood count complete auto&auto difrntl wbc Kristi West Start: 06-02-2020 Ct head/brain w/o contrast material Kristi West Start: 01-20-2020 Radiologic exam chest 2 views Jessica Alba Work Phone: Start: 11-02-2019 Esophagogastroduodenoscopy Nemesio tobias MD Work Phone: Start: 11-02-2019 Colonoscopy Rhina March MD Work Phone: Start: 09-06-2019 Basic metabolic panel calcium total Siva Sirena Pierre Work Phone: Start: 09-06-2019 Blood count complete auto&auto difrntl wbc Siva A Ignacio Work Phone: Start: 09-06-2019 Radiologic exam chest single view Siva Sirena Pierre Work Phone: Start: 08-27-2019 Lipid panel Jessica Alba Work Phone: Start: 08-21-2019 Radiologic exam chest 2 views Jessica Alba Work Phone: Start: 08-21-2019 Blood count complete auto&auto difrntl wbc Jessica Alba Work Phone: Start: 08-21-2019 Comprehensive metabolic panel Jessica Alba Work Phone: Plan of Treatment Date Care Activity Detail Author Start: 11-02-2029 Screening for malignant neoplasm of colon [facility] Start: 12-10-2024 DTaP/Tdap/Td vaccine (2 - Td or Tdap) DTaP/Tdap/Td vaccine (2 - Td or Tdap) [facility] Start: 12-10-2024 DTaP/Tdap/Td vaccine (2 - Td) DTaP/Tdap/Td vaccine (2 - Td) [place], [place] Start: 12-22-2023 Colon cancer screen colonoscopy Colon cancer screen colonoscopy [place], [place] Start: 12-22-2023 Screening for malignant neoplasm of colon Colon cancer screen colonoscopy [place], [place] Start: 01-11-2023 End: 01-11-2023 Patient encounter procedure 01/11/2023 Office Visit Internal Medicine Jessica Alba MD [address] [place] [address], [facility] [place] [address] Jessica Alba MD Start: 01-10-2023 Annual Wellness Visit (AWV) Annual Wellness Visit (AWV) [facility] Start: 01-09-2023 Depression Monitoring Depression Monitoring [facility] Start: 01-06-2023 Lipid panel Lipids [facility] Start: 07-13-2022 End: 07-13-2022 Patient encounter procedure 07/13/2022 Office Visit Internal Medicine Jessica Alba MD [address] [place] [address], [facility] [place] [id number] Jessica Alba MD Start: 06-08-2022 End: 06-08-2022 Patient encounter procedure 06/08/2022 Office Visit Internal Medicine Jessica Alba MD [address] [place] [address], [facility] [place] [address] Jessica Alba MD Start: 06-07-2022 Influenza vaccination Flu vaccine (#1) [facility] Start: 04-10-2022 Lipid panel Lipid screen [facility] Work Phone: Start: 12-20-2021 COVID-19 Vaccine (4 - Booster for Moderna series) COVID-19 Vaccine (4 - Booster for Moderna series) [facility] [employer] Start: 12-16-2021 Diabetes screen Diabetes screen [place], [place] Start: 10-24-2021 End: 10-24-2021 Patient encounter procedure 10/24/2021 Office Visit Internal Medicine Jessica Alba MD [address] [place] [address], [address] [place] [facility] [address] [phone] Jessica Alba MD Start: 10-11-2021 Annual Wellness Visit (AWV) Annual Wellness Visit (AWV) [facility] [employer] Phone: Start: 07-21-2021 End: 07-21-2021 Patient encounter procedure 07/21/2021 Office Visit Internal Medicine Jessica Alba MD [address] [place] [address], [place] [address] [phone] Jessica Alba MD Start: 06-07-2021 Influenza vaccination Flu vaccine (#1) [facility] [employer] Phone: Start: 04-19-2021 End: 04-19-2021 Patient encounter procedure 04/19/2021 Office Visit Internal Medicine Jessica Alba MD [address] [place] [address], [address] [place] [facility] [address] [phone] Jessica Alba MD Start: 01-11-2021 End: 01-11-2021 Office Visit 01/11/2021 Office Visit Internal Jessica Walters MD [address] [place] [address], [address] [facility] [place] [place] [address] [phone] Jessica Alba MD Start: 10-10-2020 End: 10-10-2020 Office Visit 10/10/2020 Office Visit Internal Jessica Walters MD [address] [place] [address], [place] [address] [phone] Jessica Alba MD Start: 08-27-2020 Lipid panel Lipid screen [place] Start: 08-27-2020 Lipid screen Lip[place] Start: 08-02-2020 Shingles Vaccine (2 of 2) Shingles Vaccine (2 of 2) [place] Start: 07-03-2020 Annual Wellness Visit (AWV) Annual Wellness Visit (AWV) [place] Start: 07-03-2020 Hepatitis C screen Hepatitis C screen [place], [place] Comment on above: Postponed from 1958 (Patient Refus ed) Start: 07-03-2020 Hepatitis C screening Hepatitis C screen [place], [place] Comment on above: Postponed from 1958 (Patient Refus ed) Start: 07-03-2020 Shingles Vaccine (1 of 2) Shingles Vaccine (1 of 2) [place] Comment on above: Postponed from 2008 (Patient Refus ed) Start: 2020 Annual Wellness Visit (AWV) Annual Wellness Visit (AWV) [place] Start: 06-29-2020 End: 06-29-2020 Office Visit 06/29/2020 Office Visit Internal Medicine Jessica Alba MD [address] [place] [address], [facility] [address] [phone] Jessica Alba MD Start: 06-07-2020 Influenza vaccination [place] Start: 04-08-2020 HIV screen HIV screen [place] Comment on above: Postponed from 1973 (Not Indicated ) Start: 04-08-2020 HIV screening HIV screen [place] Comment on above: Postponed from 1973 (Not Indicated ) Start: 03-25-2020 End: 03-25-2020 Appointment 03/25/2020 Appointment Physical Therapy Nehemias Lombardi [facility] Start: 03-17-2020 End: 03-17-2020 Appointment 03/17/2020 Appointment Physical Therapy Nehemias Lombardi [facility] Start: 03-11-2020 End: 03-11-2020 Appointment 03/11/2020 Appointment Physical Therapy Nehemias Lombardi [facility] Start: 01-01-2020 End: 01-01-2020 Office Visit 01/01/2020 Office Visit Internal Medicine Jessica Alba MD [address] [place] [address], [place] [address] [phone] Jessica Alba MD Start: 06-07-2019 Influenza vaccination Flu vaccine (#1) [place] Start: 03-04-2019 Annual Wellness Visit (AWV) Annual Wellness Visit (AWV) [place] Start: 05-25-2016 Lipid screen Lip[place] screen [place] Start: 2003 Screening for malignant neoplasm of colon [facility] [employer] Start: 1973 HIV screening HIV screen [place], [place] Start: 1964 Pneumococcal 0-64 years Vaccine (1 - PCV) Pneumococcal 0-64 years Vaccine (1 - PCV) [facility] [employer] Start: 1964 Pneumococcal 0-64 years Vaccine (1 of 1 - PPSV23) Pneumococcal 0-64 years Vaccine (1 of 1 - PPSV23) [facility] [employer] Phone: Start: 1958 Hepatitis C screening Hepatitis C screen [place], [place] End: 06-01-2022 Basic Metabolic Panel w/ Reflex to MG Basic Metabolic Panel w/ Reflex to MG Lab Routine Daily for 3 Days starting 05/30/2022 until 06/01/2022, 2 completed [employer] Phone: Comment on above: Daily for 3 Days starting 05/30/2022 unt il 06/01/2022, 2 completed Blood Culture 1 Blood Culture 1 Microbiology STAT 05/29/2022 12:09 PM EDT [employer] [facility]: End: 06-01-2022 CBC W Auto Differential panel - Blood CBC auto differential Lab Routine Daily for 3 Days starting 05/30/2022 until 06/01/2022, 2 completed [employer] Phone: Comment on above: Daily for 3 Days starting 05/30/2022 unt il 06/01/2022, 2 completed Chest Vest [employer] Phone: Comment on above: TID until discontinued starting 05/29/20 22 As Needed until disc ontinued starting 05/29/2022 Continuous pulse oximetry Pulse oximetry, continuous Respiratory Care Routine Every 4hr until discontinued starting 05/29/2022 [employer] Phone: Comment on above: Every 4hr until discontinued starting Culture, Blood 2 Culture, Blood 2 Microbiology STAT 05/29/2022 12:52 PM EDT [employer] Phone: Culture, Wound Culture, Wound Microbiology Routine 02/17/2021 8:54 AM EDT [employer] Phone: End: 11-02-2019 Esophagogastroduodenoscopy EGD Endoscopy Routine One Time for 1 Occurrences starting 11/02/2019 until 11/02/2019, 1 completed [facility] Work Phone: Comment on above: One Time for 1 Occurrences starting 10/08 until 11/02/2019, 1 completed [employer] [facility] Work Phone: Comment on above: ONE TIME for 1 Occurrences starting 10/08 Nasal Cannula Oxygen Nasal Cannu la Oxygen Respiratory Care Routine Daily until discontinued starting 05/29/2022 [facility] Work Phone: Comment on above: Daily until discontinued starting 2021 Oxygen therapy [Minimum Data Set ] Initiate Oxygen Therapy Protocol Respiratory Care Routine Daily until discontinued starting 07/13/2021 [employer] Phone: Comment on above: Daily until discontinued starting 2020 Oxygen therapy [Minimum Data Set ] Initiate Oxygen Therapy Protocol Respiratory Care Routine As Needed until discontinued starting 05/29/2022 [employer] Phone: Comment on above: As Needed until discontinued starting Phase I & II - metered glucose P hase I & II - metered glucose Point of Care Testing Routine As Needed until discontinued starting 07/13/2021 [employer] Phone: Comment on above: As Needed until discontinued starting [facility] Work Phone: Comment on above: Release Upon Ordering for 1 Occurrences starting 07/13/2021 ONE TIME for 1 Occur rences starting 11/02/2019 End: 06-02-2020 Urinalysis with Microscopic Urinalysis with Microscopic Lab STAT One Time for 1 Occurrences starting 06/02/2020 until 06/02/2020 [place] Comment on above: One Time for 1 Occurrences starting 05/08 until 06/02/2020 Immunizations Immunization Date Immunization Notes Care Provider Fa cili 08-22-2021 COVID-19, MODERNA BL UE border, Primary or Immunocompromised, (age 12y+), IM, 100 mcg/0.5mL Rhina March MD Work Phone: [facility] Work Phone: 07-21-2021 Seasonal, quadrivale nt, recombinant, injectable influenza vaccine, preservative free Jessica Alba MD Work Phone: [facility] Work Phone: 11-14-2020 COVID-19, Moderna, P F, 100mcg/0.5mL Jessica Alba MD Work Phone: [facility] Work Phone: 10-17-2020 COVID-19, Moderna, P F, 100mcg/0.5mL Jessica Alba MD Work Phone: [facility] Work Phone: 08-12-2020 zoster vaccine recombinant [facility] Work Phone: 07-26-2020 Seasonal, quadrivale nt, recombinant, injectable influenza vaccine, preservative free [facility] Work Phone: 06-07-2020 zoster vaccine recombinant Jessica [facility] 07-07-2018 influenza virus vaccine, unspecified formulation [facility], [place] 08-02-2017 Influenza, Quadv, 6 mo and older, IM (Fluzone, Flulaval) Jessica Alba [facility] 08-07-2016 influenza virus vaccine, unspecified formulation Jessica Cortes [facility] [place] [place], [place] 07-18-2015 influenza virus vaccine, unspecified formulation Jessica [facility] 12-10-2014 tetanus toxoid, redu ashok diphtheria toxoid, and acellular pertussis vaccine, adsorbed Jessica AVERY [facility] Payers Date Payer Category Payer Medicaid 2019 Medicare 2018 Medicaid MEDICAID [facility] DEPT OF JOB xxxxxxxxxxxx 2018-Present [phone] [address] [place] [address] xxxxxxxxxxxx [id number] 2018 Medicare MEDICARE MEDICAR E PART A AND B xxxxxxxxxxx 2018-Present [phone] [address] [address] [place] [address] xxxxxxxxxxx [id number] 1959 Medicaid [id number] 1959 Medicare [id number] 1958 Unknown [id number] 1958 Unknown [id number] 1958 Unknown [id number] 1958 Unknown [id number] 1958 Unknown [id number] 1958 Unknown [id number] 1958 Unknown [id number] 1958 Unknown [id number] 1958 Unknown [id number] 1958 Unknown [id number] Social History Date Type Detail Facility Start: 11-13-2014 End: 08-18-2019 Tobacco smoking status NHIS Never smoker [place] Start: 08-18-2019 End: 11-02-2019 Alcohol intake Current non-drinker of alcohol (finding) [place], [place] Start: 1960 Sex Assigned At Not on file [place] [address], [place] Exposure to SARS-CoV -2 (event) Unable to assess [place] Start: 11-13-2014 End: 06-02-2020 Tobacco use and exposure Never used [place], [place] Start: 05-19-2022 End: 05-29-2022 Exposure to SARS-CoV-2 (event) Not sure [place] Start: 11-01-2020 End: 05-29-2022 Alcohol intake Lifetime non-drinker (finding[facility]: Start: 10-10-2020 End: 10-24-2021 History SDOH Alcohol Frequency [facility]: Start: 10-10-2020 History SDOH Alcohol Std Drinks [address] [place] Phone: Start: 10-10-2020 History SDOH Social Connections Phone [facility]: Start: 10-10-2020 History SDOH Social Connections Living [facility]: Start: 10-10-2020 History SDOH Physica l Activity DPW 0 [facility] Work Phone: Start: 10-10-2020 End: 10-24-2021 History SDOH Financial 5 [facility] Work Phone: History of Present illness Narrative 05-31-2022 Flavio Duran RN - 05/31/2022 3:03 PM EDSILVINO Chandler - 05/31/2022 1:39 PM Arnoldo Duran RN - 05/31/2022 1:31 PM EDSILVINO Chandler - 05/31/2022 1:26 PM EDT Note Date & Type Note Facility 05-31-2022 History of Present illness Narrative Clean brief applied to patient and wilfred care provided. Patient dressed. IV's removed. Dressings applied. Patient transferred to wheelchair in room via flex o writer operator and staff. [employer] transportation arriving at 1545. Patient is good to return to the longterm today. SILVINO Ch Patient in bed with family at bed side. Vitals and assessment completed. Vitals stable. Patient on room air. James emptied. Patient repositioned onto other side. Call light within reach. Will continue to monitor. Spoke with the guardian and she is good with the discharge for today. Spoke with the [place] [facility] and they want to review the discharge paper work before they accept him back. SILVINO Ch Left a message for the guardian and the [place] [facility] to call about the discharge today. SILVINO Ch [facility] Facility/Department: [facility] Speech Language Pathology Dysphagia Treatment NAME:Fer Sandoval : 1960 (61 y.o.) ROOM: [address] [place] [address] ADMISSION DATE: 05/29/2022 PATIENT DIAGNOSIS(ES): Aspiration pneumonia due to gastric secretions, unspecified laterality, unspecified part of lung (HCC) [J69.0] Chief Complaint Patient presents with Wheezing Cough Low SpO2 at home Patient Active Problem List Diagnosis Date Noted Aspiration pneumonia due to gastric secretions, unspecified laterality, unspecified part of lung (HCC) 05/29/2022 Acute bronchitis due to other specified organisms 02/27/2022 Contusion of right hand including fingers / normal x-ray hand 202008/16/2021 Major depressive disorder, recurrent, moderate 04/19/2021 COVID-19 virus infection / 201908/22/2020 Down's syndrome 06/10/2020 Thyromegaly / incidental finding on CT scan of the neck 201906/10/2020 Facial droop 06/02/2020 dysphagia with normal EGD 2019 suspect tertiary dysfunction 09/21/2019 Generalized osteoarthritis of multiple sites 12/22/2018 Choking 08/29/2018 Constipation 06/16/2018 BPH with obstruction/lower urinary tract symptoms 05/05/2018 Mixed incontinence 05/05/2018 Frequency of urination 05/05/2018 Hyperlipidemia with target LDL less than 100 06/01/2015 Primary osteoarthritis of both knees 06/01/2015 Past Medical History: Diagnosis Date Blindness left eye Cataracts, bilateral Down's syndrome Hyperlipidemia Obesity Trochanteric bursitis of right hip Umbilical hernia Past Surgical History: Procedure Laterality Date COLONOSCOPY 2013 Normal EGD COLONOSCOPY 11/02/2019 EGD ESOPHAGOGASTRODUODENOSCOPY DILATATION performed by Nemesio Mayen MD at [facility] OR EYE SURGERY Bilateral FOOT DEBRIDEMENT Left 07/13/2021 FOOT DEBRIDEMENT INCISION AND DRAINAGE-HALLUX WOUND performed by Can Giordano DPM at [facility] OR UPPER GASTROINTESTINAL ENDOSCOPY N/A 11/02/2019 -bx(esophageal-normal,neg H-Pylori)dilation US THYROID BIOPSY 07/26/2020 THYROID BIOPSY 07/26/2020 [facility] ULTRASOUND Allergies Allergen Reactions Penicillins UNKNOWN REACTION DATE ONSET: 05/29/22 Date of Evaluation: 05/31/2022 Evaluating Therapist: SWAPNA Garzon Dysphagia Diagnosis Dysphagia Diagnosis: Mild oral stage dysphagia;Mild pharyngeal stage dysphagia;Concerns for esophageal stage dysphagia Recommended Diet Diet Solids Recommendation: Minced & Moist Liquid Consistency Recommendation: Thin Recommended Form of Meds: Crushed in puree as able Compensatory Swallowing Strategies : Alternate solids and liquids;Eat/Feed slowly;Total feed;Small bites/sips;External pacing;Remain upright for 30-45 minutes after meals;Upright as possible for all oral intake Reason for Referral Fer Sandoval was referred for a bedside swallow evaluation to assess the efficiency of his swallow function, identify signs and symptoms of aspiration, identify risk factors, and make recommendations regarding safe dietary consistencies, effective compensatory strategies, and safe eating environment. General Chart Reviewed: Yes Behavior/Cognition: Alert;Cooperative;Pleasant mood Respiratory Status: Room air O2 Device: None (Room air) Follows Directions: Simple Dentition: Adequate Patient Positioning: Upright in bed Prior Dysphagia History: Patient's caregiver reports that patient is on a ground diet with regular liquids. Reports patient has been having increased difficulty with swallowing recently. Per ER note, patient was noted to spit up drinks and there was a concern for aspiration. Patient does have a history of esophageal dilation in 2019. Consistencies Administered: Thin - cup;Pureed;Minced and Moist Vision and Hearing Vision Vision: Within Functional Limits Hearing Hearing: Exceptions to WFL Current Diet level Current Diet : Minced and Moist Oral Motor Labial: Decreased rate;Impaired coordination Dentition: Intact Oral Hygiene: Dried secretions Lingual: Decreased rate;Incoordinated;Macroglossia Velum: No Impairment Oral/Pharyngeal Phase Oral Phase - Comment: Patient presents with mild oral phase dysphagia characterized by reduced strength and coordination of labial and lingual musculature. Patient demonstrated predominantly munching mastication;however, this was functional. Patient demonstrated no oral residues post-swallow. Pharyngeal Phase: In regard to pharyngeal phase of swallowing, patient demonstrated throat clear x1 after taking large sip of thin liquids. No other coughing, throat clearing, or wet vocal quality noted with any other consistencies. PO Trials Vocal Quality: No Impairment Consistency Presented: Minced & Moist;Pureed;Thin How Presented: FINANCIAL SERVICES COUNSELOR-fed/Presented Bolus Acceptance: No impairment Bolus Formation/Control: No impairment Type of Impairment: Mastication Propulsion: No impairment Oral Residue: Less than 10% of bolus;None Dysphagia Diagnosis Dysphagia Diagnosis: Mild oral stage dysphagia;Mild pharyngeal stage dysphagia;Concerns for esophageal stage dysphagia Dysphagia Outcome Severity Scale: Level 3: Moderate dysphagia- Total assisstance, supervision or strategies. Two or more diet consistencies restricted Recommendations Requires FINANCIAL SERVICES COUNSELOR Intervention: Yes Diet Solids Recommendation: Minced & Moist Liquid Consistency Recommendation: Thin Compensatory Swallowing Strategies : Alternate solids and liquids;Eat/Feed slowly;Total feed;Small bites/sips;External pacing;Remain upright for 30-45 minutes after meals;Upright as possible for all oral intake Recommended Form of Meds: Crushed in puree as able Therapeutic Interventions: Diet tolerance monitoring;Therapeutic PO trials with FINANCIAL SERVICES COUNSELOR;Patient/Family education Frequency of Treatment: 1x daily during inpatient stay. Education Individuals consulted Consulted and agree with results and recommendations: Patient;RN RN Name: Flavio Patient Education: ST Educated patient's RN re: diet recommendations. Patient's family not present in room; however, ST left swallowing strategy handout at patient's bedside. Treatment/Goals Short-term Goals Timeframe for Short-term Goals: 4 days Goal 1: Patient will complete Modified Barium Swallow Study to objectively assess pharyngeal phase of swallowing. Goal 2: Patient will trial advanced PO trials without overt s/sx of aspiration/penetration in 70% of opportuniteis. Long-term Goals Timeframe for Long-term Goals: 7 days Goal 1: Patient will tolerate safest, least restrictive diet without overt s/sx of aspiration/penetration in 90% of opportunities trialed. Safety Devices Safety Devices Safety Devices in place: Yes Type of devices: All fall risk precautions in place Pain Assessment Pain Assessment: Patient does not appear in pain Pain Re-assessment Pain Reassessment: Patient does not appear in pain Therapy Time FINANCIAL SERVICES COUNSELOR Individual Minutes Time In: 0755 Time Out: 0825 Minutes: 30 Patient seen in room for breakfast meal this date. Patient sitting upright in bed for meal and is alert and cooperative. Patient's oral phase was characterized by reduced strength and coordination of labial and lingual musculature. Patient demonstrated predominantly munching mastication;however, this was functional and patient demonstrated no oral residues post-swallow. In regard to pharyngeal phase of swallowing, patient demonstrated throat clear x1 after taking large sip of thin liquids. No other coughing, throat clearing, or wet vocal quality noted with any other consistencies. Patient demonstrated no overt s/sx of aspiration/penetration during medication administration with medications crushed in pudding. ST recommends continued diet of minced and moist solids. Compensatory swallowing strategies should include: Avoid mixed consistencies (I.e. broth filled soups) Feed slowly Small bites and sips Feed upright and remain upright 30-45 minutes after PO intake Allow patient to clear his mouth before another bite or drink is presented 1:1 feeding assistance Avoid styrofoam cups ST will follow up 1x to ensure safety with current diet and carryover of swallowing strategies by family members. Electronically signed: Andreia Stewart M.S., CCC-FINANCIAL SERVICES COUNSELOR 05/31/2022 Patient in bed resting at this time. Vitals and assessment completed. Patient on room air. Patient sleeping. Blood pressure stable. Patient awoke upon touching but fell back asleep within seconds after stimulation. Food Service Representative checked patient brief which was clean, dry, and intact. Patient repositioned onto other side. James catheter draining appropriately and was emptied. Will provide oral care after medications administered in pudding. Bed alarm on. Will continue to monitor. Physical Therapy Facility/Department: [facility] Daily Treatment Note NAME: Fer Sandoval : 1960 Date of Service: 05/31/2022 Discharge Recommendations: Continue to assess pending progress, Home with assist PRN, 24 hour supervision or assist Patient Diagnosis(es): The encounter diagnosis was COPD exacerbation (HCC). Assessment Assessment: PROM to B LEs x20 in all planes. Noted pt. resisting PROM Activity Tolerance: Patient tolerated treatment well Plan Plan Plan: 2 times a day 7 days a week Current Treatment Recommendations: Strengthening;ROM;Balance training;Functional mobility training;Transfer training;Endurance training;Neuromuscular re-education;Safety education & training;Home exercise program;Manual Therapy - Soft Tissue Mobilization;Manual Therapy - Joint Manipulation;Patient/Caregiver education & training;Therapeutic activities Restrictions Restrictions/Precautions Restrictions/Precautions: Fall Risk, General Precautions Subjective Subjective Subjective: Pt. in bed upon arrival, able to perform PROM B LEs at this time. Pain: unable to report Orientation Overall Orientation Status: Impaired Objective PT Exercises PROM Exercises: B Les x20 with noted resistance from pt. with PROM Safety Devices Type of Devices: Left in bed;Bed alarm in place;Call light within reach Goals Short Term Goals Time Frame for Short term goals: 20 days Short term goal 1: Patient to tolerate PROM/AAROM to B UE's/LE's twice daily to maintain mobility. Short term goal 2: Patient to participate in bed mobility with mod/maxAx1 and be able to sit EOB with Fair sitting balance to decrease fall risk. Short term goal 3: Patient to tolerate Antonella lifts to chair with Ax2 for improved mobility. Education Patient Education Education Given To: Patient Education Provided: Role of Therapy;Plan of Care Education Method: Verbal Barriers to Learning: Cognition;Hearing Education Outcome: Continued education needed Therapy Time Individual Concurrent Group Co-treatment Time In 712 Time Out 0730 Minutes 17 Apolonia Mckeon PTA Patient was checked at this time and he was clean and dry. Food Service Representative positioned patient with a pillow under his right hip to relieve any pressure. Patient tolerated fairly well. Once finished, patient fell back asleep almost instantly. Call light is within reach and bed alarm set. Patient denies needs at this time. Will continue to monitor and assess. Vitals and reassessment complete at this time. James is draining without issue. Metoprolol was held due to patient's heat rate of 52. Blood pressure was within normal limits. Patient is still coughing intermittently but swallows whatever he brings up. Bed alarm is set. Call light and bedside table remain within reach. Will continue to monitor and assess. Vitals and assessment are complete at this time. Food Service Representative updated patient's sister, Deandra, on how patient's day went. Patient is resting in bed watching television. Food Service Representative will turn and change patient throughout the night as needed. Mouth was swabbed at this time. James is draining well. Call light is within reach and bed alarm set. Will continue to monitor and assess. Images from the original note were not included. Facsimile Transmission Cover Sheet Information contained in this transmission is for the sole use of the intended recipients and may contain confidential and privileged information. Any unauthorized review, use, disclosure or distribution is prohibited. If you are not the intended recipient, please contact the sender and destroy all copies of the original message. Disclosure is made for the purpose of healthcare operations and continuity of care. To: __Dr. Alba From: Speech Therapy Sender:_Emily Goldstein M.S., CCC-FINANCIAL SERVICES COUNSELOR ([facility]) Fer Sandoval current unit [x][facility] [phone] []ICU [phone] Your MBS evaluation order for Fer Cruzley has been completed. Based on the results speech therapy recommends: Minced and moist diet with thin liquids and meds in puree If you agree please enter the new diet order in [facility] or telephone the nursing unit. Diet will not change without your order. Thank you, Electronically signed by: Emily Goldstein M.S., CCC-FINANCIAL SERVICES COUNSELOR Physical Therapy Facility/Department: [facility] Daily Treatment Note NAME: Fer Sandoval : 1960 Date of Service: 05/30/2022 Discharge Recommendations: Continue to assess pending progress, Home with assist PRN, 24 hour supervision or assist Patient Diagnosis(es): The encounter diagnosis was COPD exacerbation (HCC). Assessment Assessment: PROM to B UE/LEs x15 in al planes. Pt. will need antonella lift for transfers Activity Tolerance: Patient tolerated treatment well Plan Plan Plan: 2 times a day 7 days a week Current Treatment Recommendations: Strengthening;ROM;Balance training;Functional mobility training;Transfer training;Endurance training;Neuromuscular re-education;Safety education & training;Home exercise program;Manual Therapy - Soft Tissue Mobilization;Manual Therapy - Joint Manipulation;Patient/Caregiver education & training;Therapeutic activities Restrictions Restrictions/Precautions Restrictions/Precautions: Fall Risk, General Precautions Subjective Subjective Subjective: Pt. in bed upon arrival, able to perform PROM B UE/LEs at this time. 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 Short term goal 2: Patient to participate in bed mobility with mod/maxAx1 and be able to sit EOB with Fair sitting balance to decrease fall risk. Short term goal 3: Patient to tolerate Antonella lifts to chair with Ax2 for improved mobility. Education Patient Education Education Given To: Patient Education Provided: Role of Therapy;Plan of Care Education Method: Verbal Barriers to Learning: Cognition;Hearing Education Outcome: Continued education needed Therapy Time Individual Concurrent Group Co-treatment Time In 1430 Time Out 1453 Minutes 23 Apolonia Mckeon PTA Images from the original note were not included. Facsimile Transmission Cover Sheet Information contained in this transmission is for the sole use of the intended recipients and may contain confidential and privileged information. Any unauthorized review, use, disclosure or distribution is prohibited. If you are not the intended recipient, please contact the sender and destroy all copies of the original message. Disclosure is made for the purpose of healthcare operations and continuity of care. To: __Dr. Alba From: Speech Therapy Sender:_Andreia Stewart M.S., CCC-FINANCIAL SERVICES COUNSELOR ([facility]) Fer Kingston Julio current unit [x][facility] [phone] []ICU [phone] Your bedside evaluation order for Fer Sandoval has been completed. Based on the results speech therapy recommends: Diet upgrade to puree solids and mildly-thick (nectar-thick) liquids. If you agree please enter the new diet order in [facility] or telephone the nursing unit. Diet will not change without your order. Thank you, Electronically signed by: Andreia Stewart M.S., CCC-FINANCIAL SERVICES COUNSELOR [facility] Facility/Department: [facility] Speech Language Pathology Clinical Bedside Swallow Treatment NAME:Fer Sandoval : 1960 (61 y.o.) ROOM: [facility]/0301- ADMISSION DATE: 05/29/2022 PATIENT DIAGNOSIS(ES): Aspiration pneumonia due to gastric secretions, unspecified laterality, unspecified part of lung (HCC) [J69.0] Chief Complaint Patient presents with Wheezing Cough Low SpO2 at home Patient Active Problem List Diagnosis Date Noted Aspiration pneumonia due to gastric secretions, unspecified laterality, unspecified part of lung (HCC) 05/29/2022 Acute bronchitis due to other specified organisms 02/27/2022 Contusion of right hand including fingers / normal x-ray hand 202008/16/2021 Major depressive disorder, recurrent, moderate 04/19/2021 COVID-19 virus infection / 201908/22/2020 Down's syndrome 06/10/2020 Thyromegaly / incidental finding on CT scan of the neck 201906/10/2020 Facial droop 06/02/2020 dysphagia with normal EGD 2019 suspect tertiary dysfunction 09/21/2019 Generalized osteoarthritis of multiple sites 12/22/2018 Choking 08/29/2018 Constipation 06/16/2018 BPH with obstruction/lower urinary tract symptoms 05/05/2018 Mixed incontinence 05/05/2018 Frequency of urination 05/05/2018 Hyperlipidemia with target LDL less than 100 06/01/2015 Primary osteoarthritis of both knees 06/01/2015 Past Medical History: Diagnosis Date Blindness left eye Cataracts, bilateral Down's syndrome Hyperlipidemia Obesity Trochanteric bursitis of right hip Umbilical hernia Past Surgical History: Procedure Laterality Date COLONOSCOPY 2013 Normal EGD COLONOSCOPY 11/02/2019 EGD ESOPHAGOGASTRODUODENOSCOPY DILATATION performed by Nemesio Mayen MD at [facility] OR EYE SURGERY Bilateral FOOT DEBRIDEMENT Left 07/13/2021 FOOT DEBRIDEMENT INCISION AND DRAINAGE-HALLUX WOUND performed by Can Giordano DPM at [facility] OR UPPER GASTROINTESTINAL ENDOSCOPY N/A 11/02/2019 -bx(esophageal-normal,neg H-Pylori)dilation US THYROID BIOPSY 07/26/2020 US THYROID BIOPSY 07/26/2020 [facility] ULTRASOUND Allergies Allergen Reactions Penicillins UNKNOWN REACTION DATE ONSET: 05/29/22 Date of Evaluation: 05/30/2022 Evaluating Therapist: SWAPNA Garzon Dysphagia Diagnosis Dysphagia Diagnosis: Concerns for esophageal stage dysphagia;Suspected needs further assessment;Mild oral stage dysphagia;Mild pharyngeal stage dysphagia Recommended Diet Recommendations: Modified barium swallow study Referral To: GI Diet Solids Recommendation: Pureed Liquid Consistency Recommendation: Mildly Thick ([place]) Recommended Form of Meds: Crushed in puree as able Compensatory Swallowing Strategies : Alternate solids and liquids;Eat/Feed slowly;Total feed;Small bites/sips;External pacing;Remain upright for 30-45 minutes after meals;Upright as possible for all oral intake Reason for Referral Fer Sandoval was referred for a bedside swallow evaluation to assess the efficiency of his swallow function, identify signs and symptoms of aspiration, identify risk factors, and make recommendations regarding safe dietary consistencies, effective compensatory strategies, and safe eating environment. General Chart Reviewed: Yes Behavior/Cognition: Alert;Cooperative;Pleasant mood Respiratory Status: Room air O2 Device: None (Room air) Communication Observation: (minimally verbal) Follows Directions: Simple Dentition: Adequate Patient Positioning: Upright in bed Volitional Cough: Weak Prior Dysphagia History: Patient's caregiver reports that patient is on a ground diet with regular liquids. Reports patient has been having increased difficulty with swallowing recently. Per ER note, patient was noted to spit up drinks and there was a concern for aspiration. Patient does have a history of esophageal dilation in 2019. Consistencies Administered: Mildly Thick- teaspoon;Thin - teaspoon;Pureed;Mildly Thick - cup Vision and Hearing Vision Vision: Within Functional Limits Hearing Hearing: Exceptions to WFL Hearing Exceptions: Bilateral hearing aid Current Diet level Current Diet : NPO Oral Motor Labial: Decreased rate;Impaired coordination Dentition: Intact Oral Hygiene: Dried secretions;Xerostomia (ST provided oral care) Lingual: Decreased rate;Incoordinated;Macroglossia Velum: No Impairment Oral/Pharyngeal Phase Oral Phase - Comment: Patient presents with mild-moderate oral phase dysphagia characterized by reduced strength and coordination of labial and lingual musculature. Patient frequently sticking his tongue out prior to accepting a bolus. Patient demonstrtaed improved removal of bolus from spoon. No oral residues noted post-swallow. Pharyngeal Phase: Patient presents with suspected pharyngeal dysphagia. Patient demonstrated decreased elevation upon palpation. Patient with intermittently delayed swallow. Patient with no overt s/sx of aspiration/penetration with mildly-thick liquids or puree solids this date. PO Trials Vocal Quality: No Impairment Consistency Presented: Mildly Thick;Thin;Pureed How Presented: FINANCIAL SERVICES COUNSELOR-fed/Presented Bolus Acceptance: No impairment Bolus Formation/Control: Impaired Type of Impairment: Lip closure Propulsion: No impairment Oral Residue: None Initiation of Swallow: Delayed (# of seconds) Laryngeal Elevation: Decreased Dysphagia Diagnosis Dysphagia Diagnosis: Concerns for esophageal stage dysphagia;Suspected needs further assessment;Mild oral stage dysphagia;Mild pharyngeal stage dysphagia Dysphagia Outcome Severity Scale: Level 3: Moderate dysphagia- Total assisstance, supervision or strategies. Two or more diet consistencies restricted Recommendations Recommendations: Modified barium swallow study Referral To: GI Diet Solids Recommendation: Pureed Liquid Consistency Recommendation: Mildly Thick ([place]) Compensatory Swallowing Strategies : Alternate solids and liquids;Eat/Feed slowly;Total feed;Small bites/sips;External pacing;Remain upright for 30-45 minutes after meals;Upright as possible for all oral intake Recommended Form of Meds: Crushed in puree as able Therapeutic Interventions: Diet tolerance monitoring;Therapeutic PO trials with FINANCIAL SERVICES COUNSELOR;Patient/Family education Frequency of Treatment: 1x daily during inpatient stay. Prognosis Guarded due to medical diagnosis and previous level of function. Education Individuals consulted Consulted and agree with results and recommendations: Patient;RN RN Name: Orin Patient Education: ST educated patient and patient's caregiver re: results of evaluation, diet recommendations, and plan of care. Treatment/Goals Short-term Goals Timeframe for Short-term Goals: 4 days Goal 1: Patient will complete Modified Barium Swallow Study to objectively assess pharyngeal phase of swallowing. Goal 2: Patient will trial advanced PO trials without overt s/sx of aspiration/penetration in 70% of opportuniteis. Long-term Goals Timeframe for Long-term Goals: 7 days Goal 1: Patient will tolerate safest, least restrictive diet without overt s/sx of aspiration/penetration in 90% of opportunities trialed. Safety Devices Safety Devices Safety Devices in place: Yes Type of devices: All fall risk precautions in place Pain Assessment Pain Assessment: Patient does not appear in pain Pain Re-assessment Pain Reassessment: Patient does not appear in pain Therapy Time FINANCIAL SERVICES COUNSELOR Individual Minutes Time In: 1400 Time Out: 1425 Minutes: 25 Patient seen in room for dysphagia treatment this date. MBSS is scheduled for 06/01/22 and was not able to be scheduled earlier due to radiologist availability. Patient's family present at bedside and state they feel patient's status has improved. Patient with xerostomia and dried secretions around lips. ST provided oral care for patient. Patient presents with mild-moderate oral phase dysphagia characterized by reduced strength and coordination of labial and lingual musculature. Patient frequently sticking his tongue out prior to accepting a bolus. Patient demonstrtaed improved removal of bolus from spoon. No oral residues noted post-swallow.Patient presents with suspected pharyngeal dysphagia. Patient demonstrated decreased elevation upon palpation. Patient with intermittently delayed swallow. Patient with no overt s/sx of aspiration/penetration with mildly-thick liquids or puree solids this date. Patient was able to consume liquids by cup and spoon this date; however, patient bit styrofoam cup and began masticating it. ST was able to remove styrofoam piece from patient's mouth. Patient unable to drink from straw as patient perseverating on biting straw. ST recommends diet of pureed solids and mildly-thick (nectar-thick) liquids. Compensatory swallowing strategies should include: small bites/sips, pacing/slow rate, alternate solids/liquids, 1:1 feeding assistance, upright during and 30-45 minutes after PO intake. ST recommends pills crushed in puree as able. Please avoid styrofoam cups. ST will continue to follow daily during inpatient stay. Electronically signed: Andreia Stewart M.S., CCC-FINANCIAL SERVICES COUNSELOR 05/30/2022 Dr Smith returned call. She will come see family. Called outpatient with consult for Dr Smith. Per Beckie in outpatient Dr Smith is not in the office until next Saturday, but she is in surgery in [place] today. Food Service Representative called surgery dept and spoke to Beckie, information for consult given to her. Received call from X-ray, plan is for pt to have swallow study on Saturday at 0800. Progress Note SUBJECTIVE: Patient seen for f/u of Aspiration pneumonia due to gastric secretions, unspecified laterality, unspecified part of lung (HCC). He resting in bed eyes closed easy resps. No distress. No hypoxia. Afebrile ROS: patient unable All other systems were reviewed with the patient and are negative unless otherwise stated in HPI OBJECTIVE: Vitals: Vitals: 05/29/22 2345 BP: (!) 144/91 Pulse: 91 Resp: 18 Temp: 98.6 F (37 C) SpO2: 95% Weight: 161 lb 6 oz (73.2 kg) Height: 5' 1 (154.9 cm) Weight Wt Readings from Last 3 Encounters: 05/30/22 161 lb 6 oz (73.2 kg) 04/10/22 135 lb (61.2 kg) 03/09/22 142 lb (64.4 kg) Body mass index is 30.49 kg/m . 24HR INTAKE/OUTPUT: Intake/Output Summary (Last 24 hours) at 05/30/2022 0752 Last data filed at 05/30/2022 0520 Gross per 24 hour Intake 1128.71 ml Output 250 ml Net 878.71 ml Exam: GEN: Awake, alert and in no acute distress. EYES: EOMI, pupils equal NECK: Supple. No lymphadenopathy. No carotid bruit CVS: regular rate and rhythm, no audible murmur PULM: diminished with scattered end expiratory wheeze no acute respiratory distress ABD: Bowels sounds normal. Abdomen is soft. No distention. no tenderness to palpation. EXT: no edema bilaterally . No calf tenderness. NEURO: Moves all extremities. Motor and sensory are grossly intact SKIN: No rashes. No skin lesions. Diagnostic Data: Complete Blood Count: Recent Labs 05/29/22 1209 05/30/22 0545 WBC 6.9 6.4 RBC 4.20* 4.00* HGB 14.0 13.4 HCT 44.3 40.8 MCV 105.5* 102.0 MCH 33.3 33.5 MCHC 31.6 32.8 RDW 13.5 13.2 PLT 165 180 MPV 10.3 10.3 Last 3 Blood Glucose: Recent Labs 05/29/22 1209 05/30/22 0545 GLUCOSE 103* 145* Comprehensive Metabolic Profile: Recent Labs 05/29/22 1209 05/30/22 0545 NA 142 133* K 4.3 4.4 CL 105 106 CO2 31 26 BUN 23 18 CREATININE 0.76 0.69* GLUCOSE 103* 145* CALCIUM 9.1 8.9 PROT 6.4 -- LABALBU 3.4* -- BILITOT 0.29* -- ALKPHOS 98 -- AST 12 -- ALT 9 -- Urinalysis: Lab Results Component Value Date/Time NITRU POSITIVE 05/05/2018 05:49 PM COLORU YELLOW 05/05/2018 05:49 PM PHUR 6.0 05/05/2018 05:49 PM WBCUA 5 TO 10 05/05/2018 05:49 PM RBCUA None 05/05/2018 05:49 PM MUCUS NOT REPORTED 05/05/2018 05:49 PM TRICHOMONAS NOT REPORTED 05/05/2018 05:49 PM YEAST NOT REPORTED 05/05/2018 05:49 PM BACTERIA 2+ 05/05/2018 05:49 PM SPECGRAV 1.020 05/05/2018 05:49 PM LEUKOCYTESUR SMALL 05/05/2018 05:49 PM UROBILINOGEN Normal 05/05/2018 05:49 PM BILIRUBINUR NEGATIVE 05/05/2018 05:49 PM GLUCOSEU NEGATIVE 05/05/2018 05:49 PM KETUA NEGATIVE 05/05/2018 05:49 PM AMORPHOUS NOT REPORTED 05/05/2018 05:49 PM HgBA1c: No results found for: LABA1C Lactic Acid: Lab Results Component Value Date/Time LACTA 1.7 07/25/2017 10:15 AM Troponin: No results for input(s): TROPONINI in the last 72 hours. CRP: No results for input(s): CRP in the last 72 hours. Radiology/Imaging: XR CHEST PORTABLE Final Result Low lung volumes with probable bronchitis and greater bandlike opacity medial right base, either segmental atelectasis/scarring or possibly pneumonia. No radiographic CHF. FL MODIFIED BARIUM SWALLOW W VIDEO (Results Pending) ASSESSMENT / PLAN: Aspiration pneumonia due to gastric secretions, unspecified laterality, unspecified part of lung (HCC) Continue current therapy IV Levaquin IV fluids Nebs Appreciate speech therapy for swallow evaluation Modified swallow IV Protonix Trend labs Monitor cultures NPO Down syndrome Nonverbal Nonambulatory Nutrition status: obesity, non-morbid Outreach Rep consult initiated Hospital Prophylaxis: DVT: Lovenox Stress Ulcer: PPI High risk medications: none Disposition: Discharge plan is pending Gabrielle Delatorre APRN - [employer] , PROTECTION SPECIALIST, BOTANY PROFESSOR-C Hospitalist Medicine 05/30/2022, 7:52 AM Associated attestation - Jessica Alba MD - 05/30/2022 3:29 PM EDT Attending Supervising Physician s Attestation Statement I have personally evaluated and examined the patient [id number] in conjunction with the nurse practitioner. I agree with management and disposition of the patient. My fernandez findings are: 61 y.o. male admitteed for Aspiration pneumonia due to gastric secretions, unspecified laterality, unspecified part of lung (HCC) on 05/29/2022 Regular. Clear. No wheezes or rhonchi. Principal Problem: Aspiration pneumonia due to gastric secretions, unspecified laterality, unspecified part of lung (HCC) Active Problems: Down's syndrome Resolved Problems: * No resolved hospital problems. * Examined and Reviewed plan of care with BOTANY PROFESSOR. Directions and discussion about care and plans. Disposition including length of stay was reviewed. Nutritional status, advanced directive and old records reviewed. Disposition: Swallow Evaluation. Antibiotics and respiratory care. The patient was seen examined with the nurse practitioner on May 29, 2022 all direct care was reviewed with the nurse practitioner at the bedside with the patient. Electronically signed by Jessica Alba MD Comprehensive Nutrition Assessment Type and Reason for Visit: Initial, Positive Nutrition Screen Nutrition Recommendations/Plan: Follow up results of MBSS Malnutrition Assessment: Malnutrition Status: At risk for malnutrition (Comment) (05/30/22 0707) Context: Acute Illness Findings of the 6 clinical characteristics of malnutrition: Energy Intake: Mild decrease in energy intake (Comment) Weight Loss: No significant weight loss Body Fat Loss: No significant body fat loss Muscle Mass Loss: No significant muscle mass loss Fluid Accumulation: No significant fluid accumulation Auto Claim Representative Strength: Not Performed Nutrition Assessment: Inadequate nutrient intakes r/t altered GI status, AEB NPO status r/t aspiration. Pending MBSS noted. Weight significantly higher than recent ranges. Perhaps some orbital losses (appear somewhat recessed). Lower lean body mass observed. Noted history of having COVID multiple times (x3). Await further data on PO feasibility and overall POC. Nutrition Related Findings: + b/s, + bm, no edema Wound Type: None Current Nutrition Intake & Therapies: Average Meal Intake: NPO Average Supplements Intake: NPO Diet NPO Anthropometric Measures: Height: 5' 1 (154.9 cm) [place] Body Weight (IBW): 112 lbs (51 kg) Admission Body Weight: 159 lb 13.3 oz (72.5 kg) Current Body Weight: 161 lb 6 oz (73.2 kg), 144.1 % IBW. Weight Source: Bed Scale Current BMI (kg/m2): 30.5 Usual Body Weight: 135 lb (61.2 kg) (in April? 131-142# in last 6 months, 155# in October) % Weight Change (Calculated): 19.5 Weight Adjustment For: No Adjustment BMI Categories: Obese Class 1 (BMI 30.0-34.9) Estimated Daily Nutrient Needs: Energy Requirements Based On: Kcal/kg Weight Used for Energy Requirements: Current Energy (kcal/day): 2928-9854 (18-20) Weight Used for Protein Requirements: [place] Protein (g/day): 61-71 (1.2-1.4) Method Used for Fluid Requirements: 1 ml/kcal Fluid (ml/day): 1500 Nutrition Diagnosis: Inadequate energy intake related to altered GI function as evidenced by NPO or clear liquid status due to medical condition Lab Results Component Value Date NA 133 (L) 05/30/2022 K 4.4 05/30/2022 CL 106 05/30/2022 CO2 26 05/30/2022 BUN 18 05/30/2022 CREATININE 0.69 (L) 05/30/2022 GLUCOSE 145 (H) 05/30/2022 CALCIUM 8.9 05/30/2022 PROT 6.4 05/29/2022 LABALBU 3.4 (L) 05/29/2022 BILITOT 0.29 (L) 05/29/2022 ALKPHOS 98 05/29/2022 AST 12 05/29/2022 ALT 9 05/29/2022 LABGLOM >60 05/30/2022 GFRAA >60 05/30/2022 GLOB NOT REPORTED 12/05/2013 No results found for: LABA1C No results found for: EAG No results found for: VITD25 Nutrition Interventions: Food and/or Nutrient Delivery: Start Oral Diet (as GI feasible) Nutrition Education/Counseling: Education not appropriate Coordination of Nutrition Care: Continue to monitor while inpatient Plan of Care discussed with: no one (patient non-verbal/asleep and no caregivers present) Goals: Goals: Meet at least 75% of estimated needs Nutrition Monitoring and Evaluation: Behavioral-Environmental Outcomes: Other (Comment) (MR) Food/Nutrient Intake Outcomes: Diet Advancement/Tolerance Physical Signs/Symptoms Outcomes: Biochemical Data, Weight, GI Status Discharge Planning: Too soon to determine Mehul Hickman RD, LD Contact: [phone] James catheter inserted by LIZY Mcbride. Noted 250 cc of clear yellow urine. Patient tolerated well. Noted patient to be incontinent of urine. Patient cleaned up, linens changed. Called Dr Monet again regarding no urine output. Awaiting call back. Call to Dr Monet regarding no urine output. Awaiting call back. Patient reassessed at this time. Vitals taken and documented. Patient turned and repositioned with pillow support. Patient unable to express if in pain. Patient continues to have a dry brief at this time. Call light and over bed table in reach. Patient dry at this time. Sister at bedside. Call light and over bed table in reach. Patient in bed, awake. Sister at bedside. Assessment complete. Vitals taken and documented. Patient nonverbal and unable to express pain or needs. Noted moist infrequent cough. Sister educated on medication and physician's orders to be completed tonight. Sister denies of any questions at this time. Call light and over bed table within reach. Side rails up times two. Discussed discharge plans with the sister who is the legal guardian. Patient is a 61 year old nonverbal & Down's syndrome male here with Aspiration pneumonia due to gastric secretions. Patient is alert and oriented to self and family. Patient is single and lives in a longterm in [place]. He uses a wheelchair to get around. Patient requires total assistance with his ADL's. He has daily visits with a nurse. [facility] [place] [facility] and [facility]. 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 His PCP is Dr. Jessica Alba MD. He has medical insurance that helps with medication costs. The discharge plan is to return to the longterm at this time. He does not have advance directives do to having a legal guardian. 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 SILVINO Ch Images from the original note were not included. Facsimile Transmission Cover Sheet Information contained in this transmission is for the sole use of the intended recipients and may contain confidential and privileged information. Any unauthorized review, use, disclosure or distribution is prohibited. If you are not the intended recipient, please contact the sender and destroy all copies of the original message. Disclosure is made for the purpose of healthcare operations and continuity of care. To: __Dr. Alba From: Speech Therapy Sender: Andreia Stewart M.S. [facility]-FINANCIAL SERVICES COUNSELOR ([facility]) Fer Sandoval current unit [[facility] [phone] []ICU [phone] Your bedside evaluation order for Fer Sandoval has been completed. Based on the results speech therapy recommends: NPO status, Recommend Modified Barium Swallow Study, GI consultation . If you agree please enter the new diet order in [facility] or telephone the nursing unit. Diet will not change without your order. Thank you, Electronically signed by: Andreia Stewart M.S. [facility]-FINANCIAL SERVICES COUNSELOR [facility] Facility/Department: [facility] SUR[facility] Speech Language Pathology Clinical Bedside Swallow Evaluation NAME:Fer Sandoval : 1960 (61 y.o.) ROOM: [facility]/030-01 ADMISSION DATE: 05/29/2022 PATIENT DIAGNOSIS(ES): Aspiration pneumonia due to gastric secretions, unspecified laterality, unspecified part of lung (HCC) [J69.0] Chief Complaint Patient presents with Wheezing Cough Low SpO2 at home Patient Active Problem List Diagnosis Date Noted Aspiration pneumonia due to gastric secretions, unspecified laterality, unspecified part of lung (HCC) 05/29/2022 Acute bronchitis due to other specified organisms 02/27/2022 Contusion of right hand including fingers / normal x-ray hand 202008/16/2021 Major depressive disorder, recurrent, moderate 04/19/2021 COVID-19 virus infection / 201908/22/2020 Down's syndrome 06/10/2020 Thyromegaly / incidental finding on CT scan of the neck 201906/10/2020 Facial droop 06/02/2020 dysphagia with normal EGD 2019 suspect tertiary dysfunction 09/21/2019 Generalized osteoarthritis of multiple sites 12/22/2018 Choking 08/29/2018 Constipation 06/16/2018 BPH with obstruction/lower urinary tract symptoms 05/05/2018 Mixed incontinence 05/05/2018 Frequency of urination 05/05/2018 Hyperlipidemia with target LDL less than 100 06/01/2015 Primary osteoarthritis of both knees 06/01/2015 Past Medical History: Diagnosis Date Blindness left eye Cataracts, bilateral Down's syndrome Hyperlipidemia Obesity Trochanteric bursitis of right hip Umbilical hernia Past Surgical History: Procedure Laterality Date COLONOSCOPY 2013 Normal EGD COLONOSCOPY 11/02/2019 EGD ESOPHAGOGASTRODUODENOSCOPY DILATATION performed by Nemesio Mayen MD at [facility] OR EYE SURGERY Bilateral FOOT DEBRIDEMENT Left 07/13/2021 FOOT DEBRIDEMENT INCISION AND DRAINAGE-HALLUX WOUND performed by Can Giordano DPM at [facility] OR UPPER GASTROINTESTINAL ENDOSCOPY N/A 11/02/2019 -bx(esophageal-normal,neg H-Pylori)dilation US THYROID BIOPSY 07/26/2020 US THYROID BIOPSY 07/26/2020 [facility] ULTRASOUND Allergies Allergen Reactions Penicillins UNKNOWN REACTION DATE ONSET: 05/29/22 Date of Evaluation: 05/29/2022 Evaluating Therapist: SWAPNA Garzon Dysphagia Diagnosis Dysphagia Diagnosis: Concerns for esophageal stage dysphagia;Suspected needs further assessment;Mild oral stage dysphagia;Moderate pharyngeal stage dysphagia Recommended Diet Recommendations: NPO;Modified barium swallow study Referral To: GI Diet Solids Recommendation: NPO Liquid Consistency Recommendation: NPO Reason for Referral Fer Sandoval was referred for a bedside swallow evaluation to assess the efficiency of his swallow function, identify signs and symptoms of aspiration, identify risk factors, and make recommendations regarding safe dietary consistencies, effective compensatory strategies, and safe eating environment. General Chart Reviewed: Yes Behavior/Cognition: Alert;Cooperative;Pleasant mood Communication Observation: (Patient is minimally verbal) Follows Directions: Simple Dentition: Adequate Patient Positioning: Upright in bed Baseline Vocal Quality: Wet Volitional Cough: Weak Prior Dysphagia History: Patient's caregiver reports that patient is on a ground diet with regular liquids. Reports patient has been having increased difficulty with swallowing recently. Per ER note, patient was noted to spit up drinks and there was a concern for aspiration. Patient does have a history of esophageal dilation in 2019. Consistencies Administered: Mildly Thick- teaspoon;Thin - teaspoon;Pureed Vision and Hearing Vision Vision: Within Functional Limits Hearing Hearing: Within functional limits Current Diet level Current Diet : Minced and Moist Oral Motor Labial: Decreased rate;Impaired coordination Dentition: Intact Oral Hygiene: Moist;Clean Lingual: Decreased rate;Incoordinated;Macroglossia Velum: No Impairment Oral/Pharyngeal Phase Oral Phase - Comment: Patient presents with mild-moderate oral phase dysphagia characterized by reduced strength and coordination of labial and lingual musculature. Patient frequently sticking his tongue out prior to accepting a bolus and demonstrated slight difficulty removing bolus from spoon. No oral reisdues noted post-swallow. Pharyngeal Phase: Patient presents with suspected pharyngeal dysphagia. Patient demonstrated decreased elevation upon palpation and delayed swallow initiation for all concistencies. Patient also demonstrated changes in vocal quality, immediate coughing, and delayed coughing inconsistently throughout evalation. Patient has weak cough reflex. PO Trials Vocal Quality: Wet Consistency Presented: Thin;Mildly Thick;Pureed How Presented: Self-fed/presented Bolus Acceptance: No impairment Bolus Formation/Control: Impaired Type of Impairment: Lip closure Oral Residue: None Initiation of Swallow: Delayed (# of seconds) Laryngeal Elevation: Decreased Aspiration Signs/Symptoms: Change of vocal quality;Weak cough;Delayed cough/throat clear Pharyngeal Phase Characteristics: Easily fatigued;Altered vocal quality = Dysphagia Diagnosis Dysphagia Diagnosis: Concerns for esophageal stage dysphagia;Suspected needs further assessment;Mild oral stage dysphagia;Moderate pharyngeal stage dysphagia Dysphagia Outcome Severity Scale: Level 1: Severe dysphagia- NPO. Unable to tolerate any PO safely Recommendations Requires FINANCIAL SERVICES COUNSELOR Intervention: Yes Recommendations: NPO;Modified barium swallow study Referral To: GI Diet Solids Recommendation: NPO Liquid Consistency Recommendation: NPO Frequency of Treatment: 1x daily during inpatient stay. Education Individuals consulted Consulted and agree with results and recommendations: Patient;RN RN Name: Ailyn Patient Education: ST educated patient and patient's caregiver re: results of evaluation, diet recommendations, and plan of care. Treatment/Goals Short-term Goals Timeframe for Short-term Goals: 4 days Goal 1: Patient will complete Modified Barium Swallow Study to objectively assess pharyngeal phase of swallowing. Goal 2: Patient will trial advanced PO trials without overt s/sx of aspiration/penetration in 70% of opportuniteis. Long-term Goals Timeframe for Long-term Goals: 7 days Goal 1: Patient will tolerate safest, least restrictive diet without overt s/sx of aspiration/penetration in 90% of opportunities trialed. Safety Devices Safety Devices Safety Devices in place: Yes Type of devices: All fall risk precautions in place Pain Assessment Pain Assessment: Patient does not appear in pain Pain Re-assessment Pain Reassessment: Patient does not appear in pain Therapy Time FINANCIAL SERVICES COUNSELOR Individual Minutes Time In: 1458 Time Out: 1515 Minutes: 17 Patient seen sitting upright in bed for bedside swallow evaluation. Patient's caregiver reports that patient is on a ground diet with regular liquids. Reports patient has been having increased difficulty with swallowing recently. Per ER note, patient was noted to spit up drinks and there was a concern for aspiration. Patient does have a history of esophageal dilation in 2019. Patient presents with mild-moderate oral phase dysphagia characterized by reduced strength and coordination of labial and lingual musculature. Patient frequently sticking his tongue out prior to accepting a bolus and demonstrated slight difficulty removing bolus from spoon. No oral reisdues noted post-swallow. Patient presents with suspected pharyngeal dysphagia. Patient demonstrated decreased elevation upon palpation and delayed swallow initiation for all concistencies. Patient also demonstrated changes in vocal quality, immediate coughing, and delayed coughing inconsistently throughout evalation. Patient has weak cough reflex. ST unable to determine if cough/change in vocal quality is due to pneumonia vs. Pharyngeal dysphagia vs. Esophageal dysphagia. ST recommends patient be placed NPO pending Modified Barium Swallow Study to objectively assess pharyngeal phase of swallowing. Recommend oral care be completed 2-3x day. Esophageal dysphagia may also be a contributing factor as patient frequently demonstrated delayed coughing and has a history of esophageal dilation in 2019; therefore, GI consultation is recommended. ST will follow daily during inpatient stay. Electronically signed: Andreia [place] 05/29/2022 Pt arrived to unit via stretcher with sister and personal WC/Sling. Pt transferred over to bed via 3 assist. documented in this encounter [employer] Phone: Hospital Discharge instructions 05-31-2022 Discharge Instr - ActivityDischarge Instr - Diet Note Date & Type Note Facility 05-31-2022 Hospital Discharg e instructions Flavio Duran RN - 05/31/2022 11:29 AM EDT Antonella Flavio Duran RN - 05/31/2022 11:29 AM EDT Good nutrition is important when healing from an illness, injury, or surgery. Follow any nutrition recommendations given to you during your hospital stay. If you were given an oral nutrition supplement while in the hospital, continue to take this supplement at home. You can take it with meals, in-between meals, and/or before bedtime. These supplements can be purchased at most local grocery stores, pharmacies, and chain super-stores. If you have any questions about your diet or nutrition, call the hospital and ask for the dietitian. Minced and Moist with thin liquids. Medications crushed in applesauce or pudding. [facility] History of Present illness Narrative 07-13-2021 Linda Carrillo RN - 07/13/2021 11:11 AM Radha Chopra RN - 07/11/2021 4:13 PM EDT Note Date & Type Note Facility 07-13-2021 History of Present illness Narrative 1024 Dr. Giordano spoke with caregiver and sister. Discharge instructions given to caregiver and sister. Discharge Criteria Inpatients must meet Criteria 1 through 7. All other patients are either YES or N/A. If a NO is chosen then Anesthesia or Surgeon must be notified. 1. Minimum 30 minutes after last dose of sedative medication, minimum 120 minutes after last dose of reversal agent. Yes 2. Systolic BP stable within 20 mmHg for 30 minutes & systolic BP between 90 & 180 or within 10 mmHg of baseline. Yes 3. Pulse between 60 and 100 or within 10 bpm of baseline. Yes 4. Spontaneous respiratory rate >/= 10 per minute. Yes 5. SaO2 >/= 95 or >/= baseline. Yes 6. Able to cough and swallow or return to baseline function. Yes 7. Alert and oriented or return to baseline mental status. Yes 8. Demonstrates controlled, coordinated movements, ambulates with steady gait, or return to baseline activity function. Yes 9. Minimal or no pain or nausea, or at a level tolerable and acceptable to patient. Yes 10. Takes and retains oral fluids as allowed. Yes 11. Procedural / perioperative site stable. Minimal or no bleeding. Yes 12. If GI endoscopy procedure, minimal or no abdominal distention or passing flatus. N/A 13. Written discharge instructions and emergency telephone number provided. Yes 14. Accompanied by a responsible adult. Yes Patient's caregiver instructed on the pre-operative, intra-operative, and post-operative process. Patient's caregiver instructed on pt's NPO status. Medication instructions and Pre operative instruction sheet reviewed and faxed to to caregiver at [facility]. documented in this encounter [employer] Phone: History of Present illness Narrative 11-02-2019 Linda Carrillo RN - 11/02/2019 12:39 PM Pippa Christian RN - 11/02/2019 11:17 AM EST Note Date & Type Note Facility 11-02-2019 History of Present illness Narrative Dr. Mayen spoke with visitors. Discharge instructions given to visitors. 1220 Pt opening eyes when called. Discharge Criteria Inpatients must meet Criteria 1 through 7. All other patients are either YES or N/A. If a NO is chosen then Anesthesia or Surgeon must be notified. 1. Minimum 30 minutes after last dose of sedative medication, minimum 120 minutes after last dose of reversal agent. Yes 2. Systolic BP stable within 20 mmHg for 30 minutes & systolic BP between 90 & 180 or within 10 mmHg of baseline. Yes 3. Pulse between 60 and 100 or within 10 bpm of baseline. Yes 4. Spontaneous respiratory rate >/= 10 per minute. Yes 5. SaO2 >/= 95 or >/= baseline. Yes 6. Able to cough and swallow or return to baseline function. Yes 7. Alert and oriented or return to baseline mental status. Yes 8. Demonstrates controlled, coordinated movements, ambulates with steady gait, or return to baseline activity function. Yes 9. Minimal or no pain or nausea, or at a level tolerable and acceptable to patient. Yes 10. Takes and retains oral fluids as allowed. Yes 11. Procedural / perioperative site stable. Minimal or no bleeding. Yes 12. If GI endoscopy procedure, minimal or no abdominal distention or passing flatus. Yes 13. Written discharge instructions and emergency telephone number provided. Yes 14. Accompanied by a responsible adult. Yes Adult patient discharged from facility without responsible person meets above criteria plus the following: a) remains awake without stimulus for 30 minutes b) oriented appropriate for age c) all vital signs stable d) no significant risk of losing protective reflexes e) able to maintain pre-procedure mobility without assistance f) no nausea or dizziness g) transportation arrangements that do not require patient to operate motor Vehicle. N/A 1113 Report given to Jennifer Carrillo RN documented in this encounter [employer] Phone: Evaluation note Note Date & Type Note Facility Evaluation note Diagnosis Contusion of right hand, initial encounter- Primary Injury of head, initial encounter Contusion of face, initial encounter documented in this encounter [employer] Phone: Evaluation note Note Date & Type Note Facility Evaluation note Diagnosis Dysphagia Dysphagia, unspecified documented in this encounter [employer] Phone: Evaluation note Note Date & Type Note Facility Evaluation note Diagnosis Aspiration pneumonia due to gastric secretions, unspecified laterality, unspecified part of lung (HCC)- Primary COPD exacerbation (HCC) Obstructive chronic bronchitis with exacerbation Down's syndrome documented in this encounter [employer] [employer] Phone: Hospital Discharge instructions Instructions Note Date & Type Note Facility Hospital Discharge instructions Linda Carrillo RN - 07/13/2021 Betadine dressing with sterile gauze to left great toe. Daily times 14 days. Can shower with plastic bag. Do not get wet times 1 week. Elevate leg. SAME DAY SURGERY DISCHARGE INSTRUCTIONS 1. Do not drive or operate hazardous machinery for 24 hours. 2. Do not make important personal or business decisions for 24 hours. 3. Do not drink alcoholic beverages for 24 hours. 4. Do not smoke tobacco products for 24 hours. 5. Eat light foods (Jell-O, soups, etc....) and drink plenty of fluids (water, Sprite, etc...) up to 8 glasses per day, as you can tolerate. 6. If your bandages become soaked with bright red blood, place another dressing pad over your bandages. (DO NOT remove original bandage.) Call your surgeon for further instructions. A small amount of bright red blood is to be expected. 7. Limit your activities for 24 hours. Do not engage in heavy work until your surgeon gives you permission. 8. Report the following signs or any questions regarding your physical condition to your surgeon immediately: Excessive swelling of, or around the wound area. Redness. Temperature of 100 degrees (F) or above. Excessive pain. 9. Call your surgeon for any questions regarding your surgery. 10. Call for an appointment to see your surgeon in . documented in this encounter [employer] Phone: Hospital Discharge instructions Attachments Note Date & Type Note Facility Hospital Discharge instructions The following attachments cannot be sent through Care Everywhere.Contusion: Hand (Swedish)Head Injury: Closed: General Info (Swedish)documented in this encounter [employer] Phone: Hospital Discharge instructions Instructions Note Date & Type Note Facility Hospital Discharge instructions Linda Carrillo RN - 11/02/2019 ENDOSCOPY DISCHARGE INSTRUCTIONS: You may have a mild sore throat; this should get better over the next day or two. Sipping warm liquids, a salt-water gargle or throat lozenges may be used. You may have some belching or a feeling of fullness in your abdomen. This is from air that was put into your stomach during the procedure. This should pass in a few hours. May resume your regular diet. You will receive a letter or phone call with your test results in 2 weeks. If you have not received a letter or a phone call in 2 weeks please call the office for your results. CALL THE DOCTOR IF YOU HAVE: Chest pain or trouble breathing. A hoarse voice or trouble swallowing Bleeding, vomiting or spitting up of blood that is more than a few streaks or red or black stools A fever above 101F or if you have chills Pain that is worse or different than any pain you had before the procedure Nausea or vomiting that lasts for more than 2 hours. If symptoms are to severe call 911 or go to the nearest Emergency Room. See me in the office as needed. Call the GI clinic at if you have a problem or question. If a biopsy or polypectomy was done, call for results in two weeks if you have not been contacted by the GI clinic staff. 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 Advance Directives and Living Will Power of Skid Wrapper Latest Code Status on File Code Status Date Activated Date Inactivated Comments Full Code 04/08/2016 7:01 PM 04/11/2016 9:06 PM Documents on File Type Date Recorded 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 ACP-Advance Directive ACP-Power of Skid Wrapper Documents on File Type Date Recorded 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 ACP-Advance Directive ACP-Power of Skid Wrapper Latest Code Status on File Code Status Date Activated Date Inactivated Comments Full Code 05/29/2022 2:36 PM Full Code 04/08/2016 7:01 PM 04/11/2016 9:06 PM Assessments Diagnosis Malaise and fatigue Other malaise and fatigue Diagnosis Cough Diagnosis Facial droop Facial weakness Enlarged thyroid Goiter, unspecified Diagnosis Thyromegaly / incidental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 Order 07/11/2021 07/12/2021 07/13/2021 lactated ringers infusion IntraVENous, at 100 mL/hr, CONTINUOUS, Starting on Yashira 07/13/21 at 0900, Pre-op (day of surgery) 0921 (New Bag - Prov ider: Anisa Gibbons RN)1050 (Stopped - Provider: Lidna Carrillo RN) PRN Medication Order 07/11/2021 07/12/2021 07/13/2021 bupivacaine-EPINEPHrine PF (MARCAINE-w/EPINEPHRINE) 0.5% -1: injection (CANCELED) PRN, Starting on Yashira 07/13/21 at 1001, Intra-op 1001 (Given - Provid er: Can Giordano DPM) lidocaine 2 % injection (CANCELED) PRN, Starting on Yashira 07/13/21 at 1001, Intra-op 1001 (Given - Provid er: Can Giordano DPM) Scheduled Medication Order 05/29/2022 05/30/2022 05/31/2022 albuterol (PROVENTIL) nebulizer solution 1.25 mg 1.25 mg, Nebulization, 4 TIMES DAILY, First dose (after last modification) on Sat05/29/22 at 1600, Until Discontinued, Initiate RT Bronchodilator Protocol: Yes - Inpatient Protocol 1927 (Not Given - Provider: Willow Marsh RN - Reason: Other - Comment: Not given on previous shift.)2048 (Given - Provider: Lorrie Hoyos RCP) 1055 (Given - Provider: Jung Peng RCP)1616 (Given - Provider: Jung Peng RCP)1939 (Given - Provider: Ayesha Plaza RCP) 0514 (Given - Provider: Terrie Nguyễn RCP)1005 (Given - Provider: Teodoro Bland RCP)1600 (Due - Provider: Jung Peng RCP)2000 (Due - Provider: Jung Peng RCP) atorvastatin (LIPITOR) tablet 40 mg 40 mg, Oral, DAILY, First dose on Sat05/29/22 at 1500, Until Discontinued, Substituted for Simvastatin (ZOCOR). 1532 (Given - Provider: Trena Rg RN)1553 (Held by provider - Provider: DARIO Osborn CNP - Reason: Pt NPO) 0900 (Automatically Held - Provider: DARIO Osborn CNP) 0649 (Unheld by provider - Provider: DARIO Osborn CNP)0805 (Given - Provider: Flavio Duran RN) cetirizine (ZYRTEC) tablet 10 mg 10 mg, Oral, DAILY, First dose on Sat05/29/22 at 1500, Until Discontinued, Substituted for Loratadine (CLARITIN). 1532 (Given - Provider: Trena Rg RN)1553 (Held by provider - Provider: DARIO Osborn CNP - Reason: Pt NPO) 0900 (Automatically Held - Provider: DARIO Osborn CNP) 0649 (Unheld by provider - Provider: DARIO Osborn CNP)0805 (Given - Provider: Flavio Duran RN) docusate sodium (COLACE) capsule 100 mg 100 mg, Oral, NIGHTLY, First dose on Sat05/29/22 at 2100, Until Discontinued, Do not crush or break. 1553 (Held by provider - Provider: DARIO Osborn CNP - Reason: Pt NPO)2100 (Automatically Held - Provider: DARIO Osborn CNP) 2100 (Automatically Held - Provider: DARIO Osborn CNP) 0649 (Unheld by provider - Provider: DARIO Osborn CNP)2100 (Due) enoxaparin (LOVENOX) injection 40 mg 40 mg, SubCUTAneous, DAILY, First dose on Sat05/29/22 at 1500, Until Discontinued, Indication of Use: Prophylaxis-DVT/PE 1532 (Given - Provider: Trena Rg RN) 0929 (Given - Provider: Orin Tate RN) 0806 (Given - Provider: Flavio Duran RN) Hydrocerin cream CREA Topical, DAILY, First dose on Sat05/29/22 at 1500, Apply to skin folds. 1630 (Not Given - Provider: Ailyn Vergara RN - Reason: Other - Comment: pt sleeping) 0929 (Given - Provider: Orin Tate RN - Comment: folds) 0807 (Given - Provider: Flavio Duran RN - Comment: folds) ipratropium-albuterol (DUONEB) nebulizer solution 1 ampule (COMPLETED) 1 ampule, Inhalation, ONCE, 1 dose, On Sat05/29/22 at 1215, Initiate RT Bronchodilator Protocol: No 1235 (Given - Provider: Laureen Crowell, [facility]) ipratropium-albuterol (DUONEB) nebulizer solution 1 ampule (COMPLETED) 1 ampule, Inhalation, ONCE, 1 dose, On Sat05/29/22 at 1315, Initiate RT Bronchodilator Protocol: No 1351 (Given - Provider: Laureen Crowell RCP) levoFLOXacin (LEVAQUIN) 750 MG/150ML infusion 750 mg 750 mg, IntraVENous, EVERY 24 HOURS, First dose on Sat05/29/22 at 1315, Until Discontinued, Antimicrobial Indications: Aspiration Pneumonia 1320 (New Bag - Provider: Manjeet Donald RN)1455 (Stopped - Provider: Trena Rg RN) 1433 (New Bag - Provider: Orin Tate, LIZY)1603 (Stopped - Provider: Orin Tate, LIZY) 1318 (New Bag - Provider: Flavio Duran RN)1440 (Stopped - Provider: Flavio Duran RN) meloxicam (MOBIC) tablet 15 mg 15 mg, Oral, DAILY, First dose on Sat05/29/22 at 1500, Until Discontinued 1532 (Given - Provider: Trena Rg RN)1553 (Held by provider - Provider: DARIO Osborn CNP - Reason: Pt NPO) 0900 (Automatically Held - Provider: DARIO Osborn CNP) 0649 (Unheld by provider - Provider: DARIO Osborn CNP)0806 (Given - Provider: Flavio Duran RN) methylPREDNISolone sodium (SOLU-MEDROL) injection 125 mg (COMPLETED) 125 mg, IntraVENous, ONCE, On Sat05/29/22 at 1215, For 1 dose 1226 (Given - Provider: Trena Telles RN) metoprolol (LOPRESSOR) injection 5 mg (CANCELED) 5 mg, IntraVENous, EVERY 6 HOURS, First dose on Sat05/30/22 at 1300, Until Discontinued 1426 (Given - Provider: Orin Tate RN)2014 (Given - Provider: Andreia Gallo RN) 136 (Not Given - Provider: Andreia Gallo RN - Reason: Other - Comment: BP within normal limits and pt is slightly bradycardic at 52BMP) pantoprazole (PROTONIX) 40 mg in sodium chloride (PF) 10 mL injection (CANCELED) 40 mg, IntraVENous, EVERY 12 HOURS, First dose on Sat05/29/22 at 1630, Reconstitute with 10 mL 0.9 % sodium chloride and administer over at least 2 minutes. 1606 (Not Given - Provider: Trena Rg RN - Reason: Other - Comment: see other admin) 0437 (Given - Provider: Willow Marsh RN)1846 (Given - Provider: Orin Tate RN) 0434 (Given - Provider: Andreia Gallo RN) pantoprazole (PROTONIX) tablet 40 mg 40 mg, Oral, 2 TIMES DAILY BEFORE MEALS, First dose on Sat05/29/22 at 1600, Until Discontinued, Do not crush or break. Substituted for Omeprazole (PRILOSEC). 1532 (Given - Provider: Trena Rg RN)1554 (Held by provider - Provider: DARIO Osborn CNP - Reason: Pt NPO) 0700 (Automatically Held - Provider: DARIO Osborn CNP)1600 (Automatically Held - Provider: DARIO Osborn CNP) 0649 (Unheld by provider - Provider: DARIO Osborn CNP)0806 (Given - Provider: Flavio Duran RN)1600 (Due) polyethylene glycol (GLYCOLAX) packet 17 g 17 g, Oral, DAILY, First dose on Sat05/29/22 at 1500, Until Discontinued 1532 (Not Given - Provider: Trena Rg RN - Reason: Patient/family refused)1555 (Held by provider - Provider: DARIO Osborn CNP - Reason: Pt NPO) 0900 (Automatically Held - Provider: DARIO Osborn CNP) 0649 (Unheld by provider - Provider: DARIO Osborn CNP)0806 (Given - Provider: Flavio Duran RN) sodium chloride flush 0.9 % injection 5-40 mL 5-40 mL, IntraVENous, EVERY 12 HOURS SCHEDULED (2 times per day), First dose on Sat05/29/22 at 2100, Until Discontinued, For Line Patency: Peripheral IV = 5 mL; Midline or Central Line = 10 mL/lumen. If following IV push medication, administer flush at same rate as the IV push. Flush volume is determined by type of infusion therapy being given. For non-viscous solutions use: Peripheral IV = 5 mL Midline or Central Line = 10 mL/lumen For viscous solutions (i.e. blood components, parenteral nutrition, contrast media, or after obtaining blood sample) use: Peripheral IV = 10 mL Midline or Central Line = 20 mL/lumen 1928 (Not Given - Provider: Willow Marsh RN - Reason: IV Fluid Infusing) 0930 (Given - Provider: Orin Tate RN)202 (Not Given - Provider: Andreia Gallo RN - Reason: IV Fluid Infusing) 0806 (Not Given - Provider: Flavio Duran RN - Reason: IV Fluid Infusing)2100 (Due) tamsulosin (FLOMAX) capsule 0.4 mg 0.4 mg, Oral, NIGHTLY, First dose on Sat05/29/22 at 2100, Until Discontinued, Do not crush or break. 1553 (Held by provider - Provider: DARIO Osborn CNP - Reason: Pt NPO)2100 (Automatically Held - Provider: DARIO Osborn CNP) 2100 (Automatically Held - Provider: DARIO Osborn CNP) 0649 (Unheld by provider - Provider: DARIO Osborn CNP)2100 (Due) Continuous Medication Order 05/29/2022 05/30/2022 05/31/2022 0.9 % sodium chloride infusion IntraVENous, at 75 mL/hr, CONTINUOUS, Starting on Sat05/29/22 at 1500 1522 (New Bag - Provider: Trena Rg RN) 0418 (New Bag - Provider: Willow Marsh RN)2011 (New Bag - Provider: Andreia Gallo, LIZY) 0928 (New Bag - Provider: Flavio Duran, LIZY)1131 (Stopped - Provider: Flavio Duran RN) PRN Medication Order 05/29/2022 05/30/2022 05/31/2022 0.9 % sodium chloride infusion 25 mL, IntraVENous, at 100 mL/hr, PRN, If patient receiving piggyback infusions without ordered maintenance IV fluids or with frequent/long duration piggyback infusions, Starting on Sat05/29/22 at 1436, Administer at the same rate as the piggyback being infused. acetaminophen (TYLENOL) suppository 650 mg(Linked Group 1) 650 mg, Rectal, EVERY 6 HOURS PRN, Starting on Sat05/29/22 at 1436, Until Discontinued, Pain Mild (1-3), Fever, For temp greater than 100.4 F (38 C), Administer if oral route cannot be used. 1553 (Held by provider - Provider: DARIO Osborn CNP - Reason: Pt NPO) acetaminophen (TYLENOL) tablet 650 mg(Linked Group 1) 650 mg, Oral, EVERY 6 HOURS PRN, Starting on Sat05/29/22 at 1436, Until Discontinued, Pain Mild (1-3), Fever, For temp greater than 100.4 F (38 C), Maximum dose of acetaminophen is 4000 mg from all sources in 24 hours. 1553 (Held by provider - Provider: DARIO Osborn CNP - Reason: Pt NPO) barium sulfate 60 % suspension 355 mL (COMPLETED) 355 mL, Oral, IMG ONCE PRN, 1 dose, Starting on Sat05/30/22 at 1552, Until Sat05/30/22 at 1553, Other 1553 (Given - Provider: Ayesha Baldwin) guaiFENesin (ROBITUSSIN) 100 MG/5ML oral solution 200 mg 200 mg, Oral, EVERY 4 HOURS PRN, Starting on Sat05/29/22 at 1436, Until Discontinued, Cough 1553 (Held by provider - Provider: DARIO Osborn CNP - Reason: Pt NPO) ondansetron (ZOFRAN) injection 4 mg(Linked Group 2) 4 mg, IntraVENous, EVERY 6 HOURS PRN, Starting on Sat05/29/22 at 1436, Until Discontinued, Nausea, Vomiting, Administer if oral route cannot be used. ondansetron (ZOFRAN-ODT) disintegrating tablet 4 mg(Linked Group 2) 4 mg, Oral, EVERY 8 HOURS PRN, Starting on Sat05/29/22 at 1436, Until Discontinued, Nausea, Vomiting sodium chloride flush 0.9 % injection 5-40 mL 5-40 mL, IntraVENous, PRN, Starting on Sat05/29/22 at 1436, Until Discontinued, Line Care, After every IV line use, For Line Patency: Peripheral IV = 5 mL; Midline or Central Line = 10 mL/lumen. If following IV push medication, administer flush at same rate as the IV push. Flush volume is determined by type of infusion therapy being given. For non-viscous solutions use: Peripheral IV = 5 mL Midline or Central Line = 10 mL/lumen For viscous solutions (i.e. blood components, parenteral nutrition, contrast media, or after obtaining blood sample) use: Peripheral IV = 10 mL Midline or Central Line = 20 mL/lumen Linked Groups Order Group 1: acetaminophen (TYLENOL) tablet 650 mgJump to med 650 mg, Oral, EVERY 6 HOURS PRN, Starting on Sat05/29/22 at 1436, Until Discontinued, Pain Mild (1-3), Fever, For temp greater than 100.4 F (38 C)
Maximum dose of acetaminophen is 4000 mg from all sources in 24 hours.
Or acetaminophen (TYLENOL) suppository 650 mgJump to med 650 mg, Rectal, EVERY 6 HOURS PRN, Starting on Sat05/29/22 at 1436, Until Discontinued, Pain Mild (1-3), Fever, For temp greater than 100.4 F (38 C)
Administer if oral route cannot be used.
Group 2: ondansetron (ZOFRAN-ODT) disintegrating tablet 4 mgJump to med 4 mg, Oral, EVERY 8 HOURS PRN, Starting on Sat05/29/22 at 1436, Until Discontinued, Nausea, Vomiting Or ondansetron (ZOFRAN) injection 4 mgJump to med 4 mg, IntraVENous, EVERY 6 HOURS PRN, Starting on Sat05/29/22 at 1436, Until Discontinued, Nausea, Vomiting
Administer if oral route cannot be used.
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 This clinical summary was aggregated from multiple sources. Caution should be exercised in using it in the provision of clinical care. This summary normalizes information from multiple sources, and as a consequence, information in this document may materially change the coding, format and clinical context of patient data. In addition, data may be omitted in some cases. CLINICAL DECISIONS SHOULD BE BASED ON THE PRIMARY CLINICAL RECORDS. [facility]. provides no warranty or guarantee of the accuracy or completeness of information in this document.
[2023-10-13] MEDS: IPRATROPIUM/ALBUTEROL SULFATE 3 ML AMPUL.NEB IH ×3 (10:26→23:01)
--- NOTE | 2023-10-13 10:27 | ECG_ITS ---
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
[2023-10-13 10:38] LABS: Influenza Virus A Antigen Negative; Influenza Virus B Antigen Negative; Internal Control Within Normal Limits; SARS-CoV-2 Ag NEGATIVE (NEGATIVE)
[2023-10-13 10:49] LABS: Basophils Absolute Auto 0.1 10^3/uL (0.0-0.1); Basophils Percent Auto 0.6 % (0.2-2.0); Eosinophils Absolute Auto 0.1 10^3/uL (0.0-0.7); Eosinophils Percent Auto 1.5 % (0.9-7.0); Hematocrit 43.1 % (42.0-54.0); Hemoglobin 13.8 g/dL (14.0-18.0); Immature Granulocytes Abs Auto 0.11 10^3/uL (0.00-0.03); Immature Granulocytes Pct Auto 1.4 % (0.0-0.5); Lymphocytes Absolute Auto 1.2 10^3/uL (1.2-3.8); Lymphocytes Percent Auto 14.9 % (20.5-60.0); Mean Corpuscular Hemoglobin 33.2 pg (25.9-34.0); Mean Corpuscular Volume 103.6 fL (80.0-94.0); Mean Platelet Volume 10.3 fL (9.5-13.5); Monocytes Absolute Auto 0.6 10^3/uL (0.3-0.8); Monocytes Percent Auto 7.6 % (1.7-12.0); Platelet Count 144 10^3/uL (150-450); Red Blood Count 4.16 10^6/uL (4.70-6.10); Red Cell Distribution Width 14.6 % (11.0-15.0); White Blood Count 8.1 10^3/uL (4.0-11.0)
[2023-10-13 10:57] LABS: Magnesium 2.3 mg/dL (1.8-2.4)
[2023-10-13 11:05] LABS: Alanine Aminotransferase 16 U/L (16-63); Albumin Globulin Ratio 0.7; Albumin Level 2.6 g/dL (3.4-5.0); Alkaline Phosphatase 79 U/L (46-116); Anion Gap 11.2; Aspartate Amino Transferase 13 U/L (15-37); BUN Creatinine Ratio 21.2; Bilirubin Total 0.5 mg/dL (0.2-1.0); Calcium 8.8 mg/dL (8.5-10.1); Carbon Dioxide 30.3 mmol/L (21.0-32.0); Chloride 104 mmol/L (98-107); Estimated GFR (African America >60 (>=60); Estimated GFR (Non-African Ame >60 (>=60); Globulin 3.5 g/dL; Glucose 86 mg/dL (74-106); Potassium 3.5 mmol/L (3.5-5.1); Sodium 142 mmol/L (136-145); Total Protein 6.1 g/dL (6.4-8.2); Troponin I High Sensitivity 5.9 pg/mL (4.0-76.1)
--- NOTE | 2023-10-13 11:32 | ED.SOB1 ---
HPI - SOB/Dyspnea General Chief Complaint: Shortness of Breath/Dyspnea Stated Complaint: GENERAL ILLNESS Time Seen by Provider: 10/13/23 09:42 Source: medical record Mode of arrival: ambulance Limitations: altered mental status History of Present Illness HPI Narrative: The patient have a history of with Down syndrome coming to us with a 24 hours history of decreased energy as well as hypoxemia that was detected on the pulse oximeter. The patient apparently have no energy and not acting himself according to the caregiver. There was no fever nausea vomiting or any other complaints. He had similar presentation in September due to aspiration pneumonia. The patient is sleepy and not providing any history at the moment as he is nonverbal The history is obtained from the caregiver Related Data Home Medications Medication Instructions Recorded Confirmed albuterol sulfate 1.25 mg/3 mL 1.25 mg inhalation Q8H PRN 09/19/23 10/13/23 solution for nebulization shortness of breath or wheezing ammonium lactate 12 % topical cream 1 applic topical DAILY 09/19/23 10/13/23 dexamethasone 4 mg tablet 4 mg PO DAILY 09/19/23 10/13/23 docusate sodium 100 mg capsule 100 mg PO DAILY 09/19/23 10/13/23 (Colace) food supplemt, lactose-reduced 1 ea PO BID 09/19/23 09/19/23 (Ensure oral liquid) guaifenesin 100 mg/5 mL oral 200 mg PO Q4H PRN cough 09/19/23 09/19/23 liquid (Chest Congestion Relief) hyoscyamine sulfate 0.125 mg 0.125 mg PO Q8H 09/19/23 10/13/23 disintegrating tablet lanolin alcohols-mineral 1 applic topical BID 09/19/23 10/13/23 oil-w.petrolatum-ceresin topical cream (Eucerin topical cream) loratadine 10 mg tablet 10 mg PO DAILY 09/19/23 10/13/23 menthol 0.44 %-zinc oxide 20.6 % 1 applic topical TID-QID PRN skin 09/19/23 10/13/23 topical ointment (Calmoseptine) irritation nystatin 100,000 unit/gram topical 1 applic topical BID 09/19/23 10/13/23 powder omeprazole 20 mg capsule,delayed 20 mg PO BID 09/19/23 10/13/23 release tamsulosin 0.4 mg capsule 0.4 mg PO DAILY 09/19/23 10/13/23 Allergies Allergy/AdvReac Type Severity Reaction Status Date / Time Penicillins Allergy Verified 09/19/23 09:41 Review of Systems ROS Status of ROS 10 or more systems reviewed and unremarkable except as noted in history and below [facility] Medical History (Updated 10/13/23 @ 11:30 by Nallely Diaz MD) Acute hypoxic respiratory failure ?J96.01 - Acute respiratory failure with hypoxia (ICD-10) Dehydration ?E86.0 - Dehydration (ICD-10) Community acquired pneumonia ?J18.9 - Pneumonia, unspecified organism (ICD-10) Dysphagia ?R13.10 - Dysphagia, unspecified (ICD-10) Obesity ?E66.9 - Obesity, unspecified (ICD-10) Trochanteric bursitis of right hip ?M70.61 - Trochanteric bursitis, right hip (ICD-10) Umbilical hernia ?K42.9 - Umbilical hernia without obstruction or gangrene (ICD-10) BPH (benign prostatic hyperplasia) ?N40.0 - Benign prostatic hyperplasia without lower urinary tract symptoms (ICD-10) Hyperlipidemia ?E78.5 - Hyperlipidemia, unspecified (ICD-10) Cataract ?H26.9 - Unspecified cataract (ICD-10) Hearing loss ?H91.90 - Unspecified hearing loss, unspecified ear (ICD-10) Blindness of left eye ?H54.40 - Blindness, one eye, unspecified eye (ICD-10) Arthritis ?M19.90 - Unspecified osteoarthritis, unspecified site (ICD-10) Down's syndrome ?Q90.9 - Down syndrome, unspecified (ICD-10) Social History Smoking status: Unknown if ever smoked Exam Narrative Exam Narrative: Nurses notes and vital signs reviewed and patient is not hypoxic. General: Well-appearing and in no apparent distress. And sleepy Skin: Warm, dry, no pallor noted. No rash. Head: Normocephalic, atraumatic. Neck: Supple, non-tender. Eye: Pupils are equal, round and EOMI. No scleral icterus. Ears, Nose, Mouth, and Throat: TM are clear, no nasal mucosal hypertrophy. Oral mucosa is moist, no posterior oropharynx erythema, uvula is mid-line Cardiovascular: Regular Rate and Rhythm without murmur, gallop or rub. Respiratory: Lungs rhonchi heard in both lung sharma and there is decreased entry in the bases. Chest Wall: no tenderness Back: No midline thoracic or lumbar vertebral tenderness. No CVA tenderness Musculoskeletal: normal ROM, no calf or popliteal tenderness, no lower extremity edema/swelling GI: Abdomen is soft, non-distended. Normal bowel sounds. No masses appreciated. No tenderness to palpation. No rebound, guarding, or rigidity noted. Neurological: No cranial nerve dysfunction observed. Constitutional Vital Signs, click to edit/add: Last Vital Signs Temp 98.4 F 10/13/23 09:39 Pulse 74 10/13/23 10:40 Resp 22 10/13/23 10:32 BP 118/66 10/13/23 10:32 Pulse Ox 95 10/13/23 10:40 O2 Del Method Nasal Cannula 10/13/23 10:02 O2 Flow Rate 2 10/13/23 10:02 Course Vital Signs Vital signs: Vital Signs Temperature 98.4 F 10/13/23 09:39 Pulse Rate 69 10/13/23 09:39 Respiratory Rate 24 10/13/23 09:39 Blood Pressure 110/62 10/13/23 09:39 Pulse Oximetry 95 10/13/23 09:39 Oxygen Delivery Method Nasal Cannula 10/13/23 09:39 Oxygen Delivery Flow Rate 2 10/13/23 09:39 Temperature 98.4 F 10/13/23 09:39 Pulse Rate 74 10/13/23 10:40 Respiratory Rate 22 10/13/23 10:32 Blood Pressure 118/66 10/13/23 10:32 Pulse Oximetry 95 10/13/23 10:40 Oxygen Delivery Method Nasal Cannula 10/13/23 10:02 Oxygen Delivery Flow Rate 2 10/13/23 10:02 MDM - SOB/Dyspnea MDM Narrative Medical decision making narrative: Upon presentation the EKG showed that the patient have a bigeminy like rhythm at [address] elevation or depression CBC and chemistry showed no significant pathology The patient EKG was discussed with the business quality assurance analyst on-call Dr Starks and he agreed that the patient presentation mostly secondary to the hypoxemia The patient will be admitted for pneumonia management he was started on IV doxycycline as well as Solu-Medrol and breathing treatment Case was discussed with Dr. Trores and he agreed with above-mentioned plan Lab Data Labs: Lab Results 10/13/23 10/13/23 Range/Units 10:00 10:40 WBC 8.1 (4.0-11.0) 10^3/uL RBC 4.16 L (4.70-6.10) 10^6/uL Hgb 13.8 L (14.0-18.0) g/dL Hct 43.1 (42.0-54.0) % MCV 103.6 H (80.0-94.0) fL MCH 33.2 (25.9-34.0) pg MCHC 32.0 (29.9-35.2) g/dL RDW 14.6 (11.0-15.0) % Plt Count 144 L (150-450) 10^3/uL MPV 10.3 (9.5-13.5) fL Neut % (Auto) 74.0 (43.0-75.0) % Lymph % (Auto) 14.9 L (20.5-60.0) % [place] % (Auto) 7.6 (1.7-12.0) % Eos % (Auto) 1.5 (0.9-7.0) % Baso % (Auto) 0.6 (0.2-2.0) % Neut # (Auto) 6.0 (1.4-6.5) 10^3/uL Lymph # (Auto) 1.2 (1.2-3.8) 10^3/uL [place] # (Auto) 0.6 (0.3-0.8) 10^3/uL Eos # (Auto) 0.1 (0.0-0.7) 10^3/uL Baso # (Auto) 0.1 (0.0-0.1) 10^3/uL Abs Immat Gran (auto) 0.11 H (0.00-0.03) 10^3/uL Imm/Tot Granulo (auto) 1.4 H (0.0-0.5) % Sodium 142 (136-145) mmol/L Potassium 3.5 (3.5-5.1) mmol/L Chloride 104 (98-107) mmol/L Carbon Dioxide 30.3 (21.0-32.0) mmol/L Anion Gap 11.2 BUN 18.0 (7.0-18.0) mg/dL Creatinine 0.85 (0.70-1.30) mg/dL Est GFR ( Amer) >60 (>=60) Est GFR (Non-Af Amer) >60 (>=60) BUN/Creatinine Ratio 21.2 Glucose 86 (74-106) mg/dL Calcium 8.8 (8.5-10.1) mg/dL Magnesium 2.3 (1.8-2.4) mg/dL Total Bilirubin 0.5 (0.2-1.0) mg/dL AST 13 L (15-37) U/L ALT 16 (16-63) U/L Alkaline Phosphatase 79 (46-116) U/L Troponin I High Sens 5.9 (4.0-76.1) pg/mL Total Protein 6.1 L (6.4-8.2) g/dL Albumin 2.6 L (3.4-5.0) g/dL Globulin 3.5 g/dL Albumin/Globulin Ratio 0.7 SARS-CoV-2 (PCR) Negative (NEGATIVE) Influenza Type A Ag Negative Influenza Type B Ag Negative Discharge Plan Discharge Chief Complaint: Shortness of Breath/Dyspnea Clinical Impression: Asthma exacerbation, Bigeminal pulse, Pneumonia Prescriptions / Home Meds: No Action dexamethasone 4 mg tablet 4 mg PO DAILY docusate sodium [Colace] 100 mg capsule 100 mg PO DAILY hyoscyamine sulfate 0.125 mg tablet,disintegrating 0.125 mg PO Q8H loratadine 10 mg tablet 10 mg PO DAILY omeprazole 20 mg capsule,delayed release(DR/EC) 20 mg PO BID tamsulosin 0.4 mg capsule 0.4 mg PO DAILY albuterol sulfate 1.25 mg/3 mL solution for nebulization 1.25 mg inhalation Q8H PRN (Reason: shortness of breath or wheezing) ammonium lactate 12 % cream 1 applic topical DAILY Rx Instructions: APPLY TO AFFECTED AREA nystatin 100,000 unit/gram powder 1 applic topical BID Ensure Liquid 1 ea PO BID Eucerin Cream 1 applic topical BID menthol-zinc oxide [Calmoseptine] 0.44-20.6 % ointment 1 applic topical TID-QID PRN (Reason: skin irritation) Rx Instructions: APPLY TO BUTTOCKS WITH EACH BRIEF CHANGE NEEDED guaifenesin [Chest Congestion Relief] 100 mg/5 mL liquid 200 mg PO Q4H PRN (Reason: cough) Referrals: JESSICA ALBA [Primary Care Provider] - 1 week
[2023-10-13] MEDS: METHYLPREDNISOLONE SOD SUCC PF 125 MG/2 ML VIAL IVP ×3 (11:45→23:48)
[2023-10-13] MEDS: DOXYCYCLINE HYCLATE 100 MG in 0.9 % SODIUM CHLORIDE 100 ML IV (11:45)
--- OUTSIDE RECORDS SUMMARY | 2023-10-13 12:21 | XMS_ITS | CCD ---
Author Name Unknown Address [address] [place] [address] Organization [facility] Care Team Providers Care Equipment Operation Instructor Name Role Phone Jessica Alba Primary Care Provider [phone] JESSICA ALBA Primary Care Unavailable Fer Page Attending Unavailable JESSICA ALBA Consulting Unavailable Jessica Alba Primary Care Provider [phone] Jessica Alba MD Primary Care Provider Jessica Alba MD Primary Care Provider Jessica Alba MD Primary Care Provider SAM, MIKE Attending Unavailable DR ORTIZ SINHA Consulting Unavailable MISC, DR JOHNSON Primary [...] Primary Care Unavailable JANUARY DAY Referring [facility] Unavailable CAN GIORDANO Admitting Unavailable CAN GIORDANO Attending Unavailable Allergies Allergy Classification Reported Allergen(s) Allergy Type Date of Onset Reaction(s) Facility Penicillins (antibiotic) (1 source) Penicillins Drug Allergy 4 [facility] Work Phone: (20 sources) Penicillins Propensity to adverse reactions to drug 4 [facility] [place] (2 sources) Penicillin; Translations: [penicillin] Drug Allergy 2 [facility] Repository Medications Current Medications Medication Drug Class(es) [...] 1 spray by Each Nostril route daily [id number] 2 Bottle 0 01/20/2020 Active 60 actuat [...] sources) Polyene Antifungal Start: 09-15-2018 nystatin (MYCOSTATIN) 516037 UNIT/GM powder Apply 3 times daily PRN [...] (PF) 10 mL injection polyethylene glycol [id number] [id number] mg powder for oral solution (10 sources) [...] of both knees , Obstructive sleep apnea Klrfn-ozw-vxto support stockings fitted Act 0 02/25/2018 Suspended Start: 02-25-2018 UNABLE TO FIND Indications: Urinary frequency , Primary osteoarthritis of both knees , Obstructive sleep apnea Variable height adjustable hospital bed (obstructive sleep apnea and osteoarthritis for positioning) 1 Device 0 02/25/2018 Suspended Start: 02-25-2018 UNABLE TO FIND Indications: Urinary frequency , Primary osteoarthritis of both knees , Obstructive sleep apnea Kqskf-evk-hxwe support stockings fitted Act 0 02/25/2018 Active [...] 12-22-2018 Chronic Other aftercare (1 source) 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 [address] [employer] Advisor: Mode Culver MD [facility],Bloodon 06-03-2022 Cult,Blood Specimen Description .BLOOD Special Requests 10ML RT AC Culture NO GROWTH 5 DAYS Report Status FINAL 06/03/2022 [facility] Comment on above: Performed By: #### B C #### [facility] [address] [place] [address] [employer] Advisor: Mode Culver MD Basic Metab w/rfx MGon 05-31 (cont.) [facility] Comment on above: Result Comment: Aver age GFR for 60-69 years old: 85 mL/min/1.73sq m Chronic Kidney Disease: <60 mL/min/1.73sq m Kidney failure: <15 mL/min/1.73sq m eGFR calculated using average adult body mass. Additional eGFR calculator available at: http://www.[employer]/multiple_crcl_2012.htm Performed By: #### B CUL2 #### [facility] [address] [place] [address] [employer] Advisor: Mode Culver MD Anion gap [Moles/Vol] 9 mmol/L Normal 9-17 [facility] Comment on above: Performed By: #### B CUL2 #### [facility] [address] [place] [address] [employer] Advisor: Mode Culver MD BUN/CRE Ratio 17 Normal 9-20 [facility] Comment on above: Performed By: #### B CUL2 #### [facility] [address] [place] [address] [employer] Advisor: Mode Culver MD Calcium [Mass/Vol] 8.8 mg/dL Normal 8.6-10.4 [facility] Comment on above: Performed By: #### B CUL2 #### [facility] [address] [place], [place] [id number] [employer] Advisor: Mode Culver MD Chloride [Moles/Vol] 106 mmol/L Normal 98-107 [facility] Comment on above: Performed By: #### B CUL2 #### [facility] [address] [place] [address] [employer] Advisor: Mode Culver MD CO2 [Moles/Vol] 27 mmol/L Normal 20-31 [facility] Comment on above: Performed By: #### B CUL2 #### [facility] [address] [place] [address] [employer] Advisor: Mode Culver MD Creatinine [Mass/Vol] 0.87 mg/dL Normal 0.70-1.20 [facility] Comment on above: Performed By: #### B CUL2 #### [facility] [address] [place] [address] [employer] Advisor: Mode Culver MD GFR, Amer >60 Normal >60 [facility] Comment on above: Performed By: #### B CUL2 #### [facility] [address] [place], [place] [id number] [employer] Advisor: Mode Culver MD GFR,non Amer >60 Normal >60 [facility] Comment on above: Performed By: #### B CUL2 #### [facility] [address] [place] [address] [employer] Advisor: Mode Culver MD Glucose [Mass/Vol] 83 mg/dL Normal 70-99 [facility] Comment on above: Performed By: #### B CUL2 #### [facility] [address] [place], [place] [id number] [employer] Advisor: Mode Culver MD Potassium [Moles/Vol] 4.1 mmol/L Normal 3.7-5.3 [facility] Comment on above: Performed By: #### B CUL2 #### [facility] [address] [place], [place] [id number] [employer] Advisor: Mode Culver MD Sodium [Moles/Vol] 142 mmol/L Normal 135-144 [facility] Comment on above: Performed By: #### B CUL2 #### [facility] [address] [place], [place] [phone] [employer] Advisor: Mode Culver MD Staging: Normal [facility] Comment on above: Result Comment: Stag e 1: Some kidney damage normal GFR Stage 2: Mild kidney damage GFR 60-89 Stage 3: Moderate kidney damage GFR 30-59 Stage 4: Severe kidney damage GFR 15-29 Stage 5: Severe kidney damage GFR <15 ESRD - chronic treatment by dialysis or transplant Performed By: #### B CUL2 #### [facility] [address] [place] [address] [employer] Advisor: Mode Culver MD Urea nitrogen [Mass/Vol] 15 mg/dL Normal 8-23 [facility] Comment on above: Performed By: #### B CUL2 #### [facility] [address] [place] [address] [employer] Advisor: Mode Culver MD Basic Metabolic Panel w/ Ref jeremiah to MGon 05-31-2022 Anion gap [Moles/Vol] 9 mmol/L 9 - 17 mmol/L [facility] Calcium [Mass/Vol] 8.8 mg/dL 8.6 - 10. 4 mg/dL [facility] Chloride [Moles/Vol] 106 mmol/L 98 - 107 mmol/L [facility] CO2 [Moles/Vol] 27 mmol/L 20 - 31 mmol/L [facility] Creatinine [Mass/Vol] 0.87 mg/dL 0.7 - 1.2 mg/dL [facility] GFR >60 60 - PINF mL/min [facility] GFR Non- >60 60 - PINF mL/min [facility] Glucose [Mass/Vol] 83 mg/dL 70 - 99 mg/dL [facility] Potassium [Moles/Vol] 4.1 mmol/L 3.7 - 5.3 mmol/L [facility] Sodium [Moles/Vol] 142 mmol/L 135 - 144 mmol/L [facility] Urea nitrogen (BldV) [Mass/Vol] 15 mg/dL 8 - 23 mg/dL [facility] Urea nitrogen/Creatinine (Bld) [Mass ratio] 17 9 - 20 [facility] CBC auto differentialon 05-08 Absolute Eos # 0.08 [facility] Absolute Immature Granulocyte [facility] Absolute Lymph # 0.94 Low [facility] Absolute Hamlin # 0.51 [facility] Basophils (Bld) [#/Vol] 0.04 10*3/uL [facility] Basophils/100 WBC (Bld) 1 % 0 - 2 % [facility] Eosinophils/100 WBC (Bld) 2 % 1 - 4 % [facility] Hematocrit (Bld) [Volume fraction] 40.9 % 40.7 - 50.3 % [facility] Hemoglobin (Bld) [Mass/Vol] 13.4 g/dL 13 - 17 g/dL [facility] Immature granulocytes/100 WBC (Bld) 0 % 0 [facility] Interpretation and review of laboratory results Abnormal [facility] Lymphocytes/100 WBC (Bld) 22 % Low 24 - 43 % [facility] MCH (RBC) [Entitic mass] 33.6 pg High 25.2 - 33.5 pg [facility] MCHC (RBC) [Mass/Vol] 32.8 g/dL 28.4 - 34.8 g/dL [facility] MCV (RBC) [Entitic vol] 102.5 fL 82.6 - 102.9 fL [facility] Monocytes/100 WBC (Bld) 12 % 3 - 12 % [facility] NRBC Automated 0.0 0.0 per 100 WBC [facility] Platelet distribution width (Bld) [Ratio] 13.4 % 11.8 - 14.4 % [facility] Platelet mean volume (Bld) [Entitic vol] 9.8 fL 8.1 - 13.5 fL [facility] Platelets (Bld) [#/Vol] 149 10*3/uL [facility] RBC (Bld) [#/Vol] 3.99 10*6/uL Low 4.21 - 5.7 7 m/uL [facility] Segmented neutrophils/100 WBC (Bld) 63 % 36 - 65 % [facility] Segs Absolute 2.65 [facility] WBC (Bld) [#/Vol] 4.2 10*3/uL [facility] CBC with Diffon 05-31-2022 Abs. Basophil 0.04 k/uL Normal 0.00-0.20 [facility] Comment on above: Performed By: #### B MPX, CDP #### [address] [place], [place] [id number] [employer] Advisor: Mode Culver MD Abs.Imm.Granulocyte <0.03 Normal 0.00-0.30 [facility] Comment on above: Performed By: #### B MPX, CDP #### [address] [place], [place] [address] [employer] Advisor: Mode Culver MD Abs.Neutrophil (Seg) 2.65 k/uL Normal 1.50-8.10 [facility] Comment on above: Performed By: #### B MPX, CDP #### [address] [place] [address] [employer] Advisor: Mode Culver MD Basophils/100 WBC (Bld) 1 % Normal 0-2 [facility] Comment on above: Performed By: #### B MPX, CDP #### [address] [place], [place] [address] [employer] Advisor: Mode Culver MD Eosinophils (Bld) [#/Vol] 0.08 10*3/uL Normal 0.00-0.44 [facility] Comment on above: Performed By: #### B MPX, CDP #### [address] [place], [facility]83 [employer] Advisor: Mode Culver MD Eosinophils/100 WBC (Bld) 2 % Normal 1-4 [facility] Comment on above: Performed By: #### B MPX, CDP #### [address] [place] [id number] [employer] Advisor: Mode Culver MD Erythrocyte distribution width (RBC) [Ratio] 13.4 % Normal 11.8-14.4 [facility] Comment on above: Performed By: #### B MPX, CDP #### [address] [place], [facility]83 [employer] Advisor: Mode Culver MD Hematocrit (Bld) [Volume fraction] 40.9 % Normal 40.7-50.3 [facility] Comment on above: Performed By: #### B MPX, CDP #### [facility] [address] [place] [address] Dr. [place], [place] [phone] [employer] Advisor: Mode Culver MD Hemoglobin (Bld) [Mass/Vol] 13.4 g/dL Normal 13.0-17.0 [facility] Comment on above: Performed By: #### B MPX, CDP #### [address] [place], [facility]83 [employer] Advisor: Mode Culver MD Immature granulocytes/100 WBC (Bld) 0 % Normal 0 [facility] Comment on above: Performed By: #### B MPX, CDP #### [facility] [address] [place] [address] Dr. [place], [facility]83 [employer] Advisor: Mode Culver MD Lymphocytes (Bld) [#/Vol] 0.94 10*3/uL Low 1.10-3.70 [facility] Comment on above: Performed By: #### B MPX, CDP #### [address] [place], [facility]83 [employer] Advisor: Mode Culver MD Lymphocytes/100 WBC (Bld) 22 % Low 24-43 [facility] Comment on above: Performed By: #### B MPX, CDP #### [facility] [address] [place] [address] Dr. [place], [facility]83 [employer] Advisor: Mode Culver MD MCH (RBC) [Entitic mass] 33.6 pg High 25.2-33.5 [facility] Comment on above: Performed By: #### B MPX, CDP #### [facility] [address] [place] [address] Dr. [place], [facility]83 [employer] Advisor: Mode Culver MD MCHC (RBC) [Mass/Vol] 32.8 g/dL Normal 28.4-34.8 [facility] Comment on above: Performed By: #### B MPX, CDP #### [facility] [address] [place], [place] [phone] [employer] Advisor: Mode Culver MD MCV (RBC) [Entitic vol] 102.5 fL Normal 82.6-102.9 [facility] Comment on above: Performed By: #### B MPX, CDP #### [facility] [address] [place] [address] [employer] Advisor: Mode Culver MD Monocytes (Bld) [#/Vol] 0.51 10*3/uL Normal 0.10-1.20 [facility] Comment on above: Performed By: #### B MPX, CDP #### [address] [place], [place] [phone] [employer] Advisor: Mode Culver MD Monocytes/100 WBC (Bld) 12 % Normal 3-12 [facility] Comment on above: Performed By: #### B MPX, CDP #### [address] [place], [place] [phone] [employer] Advisor: Mode Culver MD Neutrophil (Seg) 63 % Normal 36-65 [facility] Comment on above: Performed By: #### B MPX, CDP #### [address] [place], [place] [phone] [employer] Advisor: Mode Culver MD NRBC Automated 0.0 per 100 WBC Normal 0.0 [facility] Comment on above: Performed By: #### B MPX, CDP #### [address] [place], [place] [id number] [employer] Advisor: Mdoe Culver MD Platelet mean volume (Bld) [Entitic vol] 9.8 fL Normal 8.1-13.5 [facility] Comment on above: Performed By: #### B MPX, CDP #### [facility] [address] [place] [address] [employer] Advisor: Mode Culver MD Platelets (Bld) [#/Vol] 149 10*3/uL Normal 138-453 [facility] Comment on above: Performed By: #### B MPX, CDP #### [facility] [address] [place] [address] [employer] Advisor: Mode Culver MD RBC (Bld) [#/Vol] 3.99 10*6/uL Low 4.21-5.77 [facility] Comment on above: Performed By: #### B MPX, CDP #### [facility] [address] [place] [address] [employer] Advisor: Mode Culver MD WBC (Bld) [#/Vol] 4.2 10*3/uL Normal 3.5-11.3 [facility] Comment on above: Performed By: #### B MPX, CDP #### [facility] [address] [place] [address] [employer] Advisor: Mode Culver MD Laboratory - Chemistry and C hemistry - challengeon 05-31-2022 GFR/1.73 sq M.predicted MDRD (S/P/Bld) [Vol rate/Area] [facility] Comment on above: Average GFR for 60-6 9 years old: 85 mL/min/1.73sq m Chronic Kidney Disease: <60 mL/min/1.73sq m Kidney failure: <15 mL/min/1.73sq m eGFR calculated using average adult body mass. Additional eGFR calculator available at: http://www.[employer].com/multiple_crcl_2012.htm Stage 1: Some kidney damage normal GFR Stage 2: Mild kidney damage GFR 60-89 Stage 3: Moderate kidney damage GFR 30-59 Stage 4: Severe kidney damage GFR 15-29 Stage 5: Severe kidney damage GFR <15 ESRD - chronic treatment by dialysis or transplant Basic Metab w/rfx MGon 05-30 (cont.) Normal [facility] Comment on above: Result Comment: Aver age GFR for 60-69 years old: 85 mL/min/1.73sq m Chronic Kidney Disease: <60 mL/min/1.73sq m Kidney failure: <15 mL/min/1.73sq m eGFR calculated using average adult body mass. Additional eGFR calculator available at: http://www.[employer]/multiple_crcl_2011.htm Performed By: #### C DP, BMPX #### [facility] [address] [place] [address] [employer] Advisor: Mode Culver MD Anion gap [Moles/Vol] 1 mmol/L Low 9-17 [facility] Comment on above: Performed By: #### C DP, BMPX #### [facility] [address] [place] [address] [employer] Advisor: Mode Culver MD BUN/CRE Ratio 26 High 9- [facility] Comment on above: Performed By: #### C DP, BMPX #### [address] [place] [address] [employer] Advisor: Mode Culver MD Calcium [Mass/Vol] 8.9 mg/dL Normal 8.6-10.4 [facility] Comment on above: Performed By: #### C DP, BMPX #### [facility] [address] [place], [place] [phone] [employer] Advisor: Mode Culver MD Chloride [Moles/Vol] 106 mmol/L Normal 98-107 [facility] Comment on above: Performed By: #### C DP, BMPX #### [facility] [address] [place] [address] [place] [address] [employer] Advisor: Mode Culver MD CO2 [Moles/Vol] 26 mmol/L Normal - [facility] Comment on above: Performed By: #### C DP, BMPX #### [facility] [address] [place], [place] [phone] [employer] Advisor: Mode Culver MD Creatinine [Mass/Vol] 0.69 mg/dL Low 0.70-1.20 [facility] Comment on above: Performed By: #### C DP, BMPX #### [facility] [address] [place], [place] 1654383 [employer] Advisor: Mode Culver MD GFR, Amer >60 Normal >60 [facility] Comment on above: Performed By: #### C DP, BMPX #### [facility] [address] [place], [place] [phone] [employer] Advisor: Mode Culver MD GFR,non Amer >60 Normal >60 [facility] Comment on above: Performed By: #### C DP, BMPX #### [facility] [address] [place], [place] [phone] [employer] Advisor: Mode Culver MD Glucose [Mass/Vol] 145 mg/dL High 70-99 [facility] Comment on above: Performed By: #### C DP, BMPX #### [facility] [address] [place], [place] 6488783 [employer] Advisor: Mode Culver MD Potassium [Moles/Vol] 4.4 mmol/L Normal 3.7-5.3 [facility] Comment on above: Performed By: #### C DP, BMPX #### [facility] [address] [place], [place] 6284083 [employer] Advisor: Mode Culver MD Sodium [Moles/Vol] 133 mmol/L Low 135-144 [facility] Comment on above: Performed By: #### C DP, BMPX #### [facility] [address] [place], [place] [phone] [employer] Advisor: Mode Culver MD Staging: Normal [facility] Comment on above: Result Comment: Stag e 1: Some kidney damage normal GFR Stage 2: Mild kidney damage GFR 60-89 Stage 3: Moderate kidney damage GFR 30-59 Stage 4: Severe kidney damage GFR 15-29 Stage 5: Severe kidney damage GFR <15 ESRD - chronic treatment by dialysis or transplant Performed By: #### C DP, BMPX #### [facility] [address] [place] [address] [employer] Advisor: Mode Culver MD Urea nitrogen [Mass/Vol] 18 mg/dL Normal 8-23 [facility] Comment on above: Performed By: #### C DP, BMPX #### [facility] [address] [place] [address] [employer] Advisor: Mode Culver MD Basic Metabolic Panel w/ Ref jeremiah to MGon 05-30-2022 Anion gap [Moles/Vol] 1 mmol/L Low 9 - 17 mmol/L [facility] Calcium [Mass/Vol] 8.9 mg/dL 8.6 - 10. 4 mg/dL [facility] Chloride [Moles/Vol] 106 mmol/L 98 - 107 mmol/L [facility] CO2 [Moles/Vol] 26 mmol/L 20 - 31 mmol/L [facility] Creatinine [Mass/Vol] 0.69 mg/dL Low 0.7 - 1.2 mg/dL [facility] GFR >60 60 - PINF mL/min [facility] GFR Non- >60 60 - PINF mL/min [facility] Glucose [Mass/Vol] 145 mg/dL High 70 - 99 mg/dL [facility] Interpretation and review of laboratory results Abnormal [facility] Potassium [Moles/Vol] 4.4 mmol/L 3.7 - 5.3 mmol/L [facility] Sodium [Moles/Vol] 133 mmol/L Low 135 - 144 mmol/L [facility] Urea nitrogen (BldV) [Mass/Vol] 18 mg/dL 8 - 23 mg/dL [facility] Urea nitrogen/Creatinine (Bld) [Mass ratio] 26 High 9 - 20 [facility] auto differentialon 05-08 Absolute Eos # [facility] Absolute Immature Granulocyte 0.05 [facility] Absolute Lymph # 0.56 Low [facility] Absolute Hamlin # 0.36 [facility] Basophils Absolute [facility] Basophils/100 WBC (Bld) 0 % 0 - 2 % [facility] Eosinophils/100 WBC (Bld) 0 % Low 1 - 4 % [facility] Hematocrit (Bld) [Volume fraction] 40.8 % 40.7 - 50.3 % [facility] Hemoglobin (Bld) [Mass/Vol] 13.4 g/dL 13 - 17 g/dL [facility] Immature granulocytes/100 WBC (Bld) 1 % High 0 [facility] Interpretation and review of laboratory results Abnormal [facility] Lymphocytes/100 WBC (Bld) 9 % Low 24 - 43 % [facility] MCH (RBC) [Entitic mass] 33.5 pg 25.2 - 33.5 pg [facility] MCHC (RBC) [Mass/Vol] 32.8 g/dL 28.4 - 34.8 g/dL [facility] MCV (RBC) [Entitic vol] 102.0 fL 82.6 - 102.9 fL [facility] Monocytes/100 WBC (Bld) 6 % 3 - 12 % [facility] NRBC Automated 0.0 0.0 per 100 WBC [facility] Platelet distribution width (Bld) [Ratio] 13.2 % 11.8 - 14.4 % [facility] Platelet mean volume (Bld) [Entitic vol] 10.3 fL 8.1 - 13.5 fL [facility] Platelets (Bld) [#/Vol] 180 10*3/uL [facility] RBC (Bld) [#/Vol] 4.00 10*6/uL Low 4.21 - 5.7 7 m/uL [facility] Segmented neutrophils/100 WBC (Bld) 85 % High 36 - 65 % [facility] Segs Absolute 5.41 [facility] WBC (Bld) [#/Vol] 6.4 10*3/uL [facility] CBC with Diffon 05-30-2022 Abs. Basophil <0.03 Normal 0.00-0.20 [facility] Comment on above: Performed By: #### C DP, BMPX #### [facility] [address] [place], [place] [address] [employer] Advisor: Mode Culver MD Abs. Eosinophil <0.03 Normal 0.00-0.44 [facility] Comment on above: Performed By: #### C DP, BMPX #### [facility] [address] [place], [place] [address] [employer] Advisor: Mode Culver MD Abs.Imm.Granulocyte 0.05 k/uL Normal 0.00-0.30 [facility] Comment on above: Performed By: #### C DP, BMPX #### [facility] [address] [place], [facility]83 [employer] Advisor: Mode Culver MD Abs.Neutrophil (Seg) 5.41 k/uL Normal 1.50-8.10 [facility] Comment on above: Performed By: #### C DP, BMPX #### [facility] [address] [place], [place] [phone] [employer] Advisor: Mode Culver MD Basophils/100 WBC (Bld) 0 % Normal 0-2 [facility] Comment on above: Performed By: #### C DP, BMPX #### [facility] [address] [place], [place] [phone] [employer] Advisor: Mode Culver MD Eosinophils/100 WBC (Bld) 0 % Low 1-4 [facility] Comment on above: Performed By: #### C DP, BMPX #### [facility] [address] [place], [facility]83 [employer] Advisor: Mode Culver MD Erythrocyte distribution width (RBC) [Ratio] 13.2 % Normal 11.8-14.4 [facility] Comment on above: Performed By: #### C DP, BMPX #### [address] [place], [place] [id number] [employer] Advisor: Mode Culver MD Hematocrit (Bld) [Volume fraction] 40.8 % Normal 40.7-50.3 [facility] Comment on above: Performed By: #### C DP, BMPX #### [address] [place], [place] [id number] [employer] Advisor: Mode Culver MD Hemoglobin (Bld) [Mass/Vol] 13.4 g/dL Normal 13.0-17.0 [facility] Comment on above: Performed By: #### C DP, BMPX #### [address] [place], [place] [phone] [employer] Advisor: Mode Culver MD Immature granulocytes/100 WBC (Bld) 1 % High 0 [facility] Comment on above: Performed By: #### C DP, BMPX #### [address] [place], [place] [phone] [employer] Advisor: Mode Culver MD Lymphocytes (Bld) [#/Vol] 0.56 10*3/uL Low 1.10-3.70 [facility] Comment on above: Performed By: #### C DP, BMPX #### [facility] [address] [place] [address] Dr. [place], [place] [phone] [employer] Advisor: Mode Cluver MD Lymphocytes/100 WBC (Bld) 9 % Low 24-43 [facility] Comment on above: Performed By: #### C DP, BMPX #### [address] [place], [place] [phone] [employer] Advisor: Mode Culver MD MCH (RBC) [Entitic mass] 33.5 pg Normal 25.2-33.5 [facility] Comment on above: Performed By: #### C DP, BMPX #### [facility] [address] [place] [address] [employer] Advisor: Mode Culver MD MCHC (RBC) [Mass/Vol] 32.8 g/dL Normal 28.4-34.8 [facility] Comment on above: Performed By: #### C DP, BMPX #### [facility] [address] [place], [place] [phone] [employer] Advisor: Mode Culver MD MCV (RBC) [Entitic vol] 102.0 fL Normal 82.6-102.9 [facility] Comment on above: Performed By: #### C DP, BMPX #### [address] [place], [facility]83 [employer] Advisor: Mode Culver MD Monocytes (Bld) [#/Vol] 0.36 10*3/uL Normal 0.10-1.20 [facility] Comment on above: Performed By: #### C DP, BMPX #### [address] [place], [place] 9116783 [employer] Advisor: Mode Culver MD Monocytes/100 WBC (Bld) 6 % Normal 3-12 [facility] Comment on above: Performed By: #### C DP, BMPX #### [facility] [address] [place], [facility]83 [employer] Advisor: Mode Culver MD Neutrophil (Seg) 85 % High 36-65 [facility] Comment on above: Performed By: #### C DP, BMPX #### [facility] [address] [place], [place] [phone] [employer] Advisor: Mode Culver MD NRBC Automated 0.0 per 100 WBC Normal 0.0 [facility] Comment on above: Performed By: #### C DP, BMPX #### [facility] [address] [place], [facility]83 [employer] Advisor: Mode Culver MD Platelet mean volume (Bld) [Entitic vol] 10.3 fL Normal 8.1-13.5 [facility] Comment on above: Performed By: #### C DP, BMPX #### [address] [place] [address] [employer] Advisor: Mode Culver MD Platelets (Bld) [#/Vol] 180 10*3/uL Normal 138-453 [facility] Comment on above: Performed By: #### C DP, BMPX #### [address] [place] [phone] [employer] Advisor: Mode Culver MD RBC (Bld) [#/Vol] 4.00 10*6/uL Low 4.21-5.77 [facility] Comment on above: Performed By: #### C DP, BMPX #### [address] [place] [phone] [employer] Advisor: Mode Culver MD WBC (Bld) [#/Vol] 6.4 10*3/uL Normal 3.5-11.3 [facility] Comment on above: Performed By: #### C DP, BMPX #### [address] [place] [phone] [employer] Advisor: Mode Culver MD [place] MODIFIED BARIUM SWALLOW [...] Kristi Christopher MD 05/30/22 Final result Normal [facility] EXAMINATION: MODIFIED BARIUM SWALLOW WAS PERFORMED IN [...] full discussion of the findings and recommendations. [facility] Kristi Christopher MD - 05/30/2022 EXAMINATION: MODIFIED [...] full discussion of the findings and recommendations. [facility] Work Phone: Radiology Study observation (narrative) [facility] Work Phone: [place] MODIFIED BARIUM SWALLOW W VIDEOOrdered By: Kristi Christopher on 05-30-2022 [facility] Work Phone: Laboratory - Chemistry and C hemistry - challengeon 05-30-2022 GFR/1.73 sq M.predicted MDRD (S/P/Bld) [Vol rate/Area] [facility] Comment on above: Average GFR for 60-6 9 years old: 85 mL/min/1.73sq m Chronic Kidney Disease: <60 mL/min/1.73sq m Kidney failure: <15 mL/min/1.73sq m eGFR calculated using average adult body mass. Additional eGFR calculator available at: http://www.[employer]/multiple_crcl_2012.htm Stage 1: Some kidney damage normal GFR Stage 2: Mild kidney damage GFR 60-89 Stage 3: Moderate kidney damage GFR 30-59 Stage 4: Severe kidney damage GFR 15-29 Stage 5: Severe kidney damage GFR <15 ESRD - chronic treatment by dialysis or transplant Blood gas, venouson 05-29-20 Kofi Test PASS [facility] HCO3 (Bld) [Moles/Vol] 31.5 mmol/L High 24 - 30 mmol/L [facility] Interpretation and review of laboratory results Abnormal [facility] O2 Device/Flow/% [facility] Oxygen saturation in Blood 55.3 % Low 60 - 85 % [facility] pCO2, Christian 56.4 High 39 - 55 [facility] pH, Christian 7.365 7.32 - 7.42 [facility] pO2, Christian 30.7 30 - 50 [facility] Positive Base Excess, Christian 4.5 mmol/L High 0 - 2 mmol/L [facility] Pt Temp 37.0 [facility] Pt. Position [facility] Sample Site Left Brachial Artery [facility] CBC with Auto Differentialon 05-29-2022 Absolute Eos # 0.26 [facility] Absolute Immature Granulocyte [facility] Absolute Lymph # 0.61 [facility] Absolute [place] # 0.77 [facility] [employer] Basophils (Bld) [#/Vol] 0.06 10*3/uL [facility] Basophils/100 WBC (Bld) 1 % 0 - 2 % [facility] Eosinophils/100 WBC (Bld) 4 % 1 - 4 % [facility] Hematocrit (Bld) [Volume fraction] 44.3 % 40.7 - 50.3 % [facility] Hemoglobin (Bld) [Mass/Vol] 14.0 g/dL 13 - 17 g/dL [facility] Immature granulocytes/100 WBC (Bld) 0 % 0 [facility] Interpretation and review of laboratory results Abnormal [facility] Lymphocytes/100 WBC (Bld) 9 % Low 24 - 43 % [facility] MCH (RBC) [Entitic mass] 33.3 pg 25.2 - 33.5 pg [facility] MCHC (RBC) [Mass/Vol] 31.6 g/dL 28.4 - 34.8 g/dL [facility] MCV (RBC) [Entitic vol] 105.5 fL High 82.6 - 102.9 fL [facility] Monocytes/100 WBC (Bld) 11 % 3 - 12 % [facility] NRBC Automated 0.0 0.0 per 100 WBC [facility] Platelet distribution width (Bld) [Ratio] 13.5 % 11.8 - 14.4 % [facility] Platelet mean volume (Bld) [Entitic vol] 10.3 fL 8.1 - 13.5 fL [facility] Platelets (Bld) [#/Vol] 165 10*3/uL [facility] RBC (Bld) [#/Vol] 4.20 10*6/uL Low 4.21 - 5.7 7 m/uL [facility] Segmented neutrophils/100 WBC (Bld) 75 % High 36 - 65 % [facility] Segs Absolute 5.16 [facility] WBC (Bld) [#/Vol] 6.9 10*3/uL [facility] CBC with Diffon 05-29-2022 Abs. Basophil 0.06 k/uL Normal 0.00-0.20 [facility] Comment on above: Performed By: #### C P, CDP, PT #### [facility] [address] [place] [address] [employer] Advisor: Mode Culver MD Abs.Imm.Granulocyte <0.03 Normal 0.00-0.30 [facility] Comment on above: Performed By: #### C P, CDP, PT #### [facility] [address] [place] [address] [employer] Advisor: Mode Culver MD Abs.Neutrophil (Seg) 5.16 k/uL Normal 1.50-8.10 [facility] Comment on above: Performed By: #### C P, CDP, PT #### [address] [place], [facility]83 [employer] Advisor: Mode Culver MD Basophils/100 WBC (Bld) 1 % Normal 0-2 [facility] Comment on above: Performed By: #### C P, CDP, PT #### [address] [place], [place] [address] [employer] Advisor: Mode Culver MD Eosinophils (Bld) [#/Vol] 0.26 10*3/uL Normal 0.00-0.44 [facility] Comment on above: Performed By: #### C P, CDP, PT #### [address] [place], [facility]83 [employer] Advisor: Mode Culver MD Eosinophils/100 WBC (Bld) 4 % Normal 1-4 [facility] Comment on above: Performed By: #### C P, CDP, PT #### [address] [place], [facility]83 [employer] Advisor: Mode Culver MD Erythrocyte distribution width (RBC) [Ratio] 13.5 % Normal 11.8-14.4 [facility] Comment on above: Performed By: #### C P, CDP, PT #### [address] [place], [facility]83 [employer] Advisor: Mode Culver MD Hematocrit (Bld) [Volume fraction] 44.3 % Normal 40.7-50.3 [facility] Comment on above: Performed By: #### C P, CDP, PT #### [address] [place], [facility]83 [employer] Advisor: Mode Culver MD Hemoglobin (Bld) [Mass/Vol] 14.0 g/dL Normal 13.0-17.0 [facility] Comment on above: Performed By: #### C P, CDP, PT #### [address] [place], [facility]83 [employer] Advisor: Mode Culver MD Immature granulocytes/100 WBC (Bld) 0 % Normal 0 [facility] Comment on above: Performed By: #### C P, CDP, PT #### [address] [place], [facility]83 [employer] Advisor: Mode Culver MD Lymphocytes (Bld) [#/Vol] 0.61 10*3/uL Low 1.10-3.70 [facility] Comment on above: Performed By: #### C P, CDP, PT #### [address] [place], [place] [address] [employer] Advisor: Mode Culver MD Lymphocytes/100 WBC (Bld) 9 % Low 24-43 [facility] Comment on above: Performed By: #### C P, CDP, PT #### [address] [place], [facility]83 [employer] Advisor: Mode Culver MD MCH (RBC) [Entitic mass] 33.3 pg Normal 25.2-33.5 [facility] Comment on above: Performed By: #### C P, CDP, PT #### [address] [place], [facility]83 [employer] Advisor: Mode Culver MD MCHC (RBC) [Mass/Vol] 31.6 g/dL Normal 28.4-34.8 [facility] Comment on above: Performed By: #### C P, CDP, PT #### [address] [place], [place] [phone] [employer] Advisor: Mode Culver MD MCV (RBC) [Entitic vol] 105.5 fL High 82.6-102.9 [facility] Comment on above: Performed By: #### C P, CDP, PT #### [facility] [address] [place], [facility]83 [employer] Advisor: Mode Culver MD Monocytes (Bld) [#/Vol] 0.77 10*3/uL Normal 0.10-1.20 [facility] Comment on above: Performed By: #### C P, CDP, PT #### [address] [place], [facility]83 [employer] Advisor: Mode Culver MD Monocytes/100 WBC (Bld) 11 % Normal 3-12 [facility] Comment on above: Performed By: #### C P, CDP, PT #### [address] [place], [place] [address] [employer] Advisor: Mode Culver MD Neutrophil (Seg) 75 % High 36-65 [facility] Comment on above: Performed By: #### C P, CDP, PT #### [address] [place], [facility]83 [employer] Advisor: Mode Culver MD NRBC Automated 0.0 per 100 WBC Normal 0.0 [facility] Comment on above: Performed By: #### C P, CDP, PT #### [address] [place], [place] [address] [employer] Advisor: Mode Culver MD Platelet mean volume (Bld) [Entitic vol] 10.3 fL Normal 8.1-13.5 [facility] Comment on above: Performed By: #### C P, CDP, PT #### [address] [place] [address] [employer] Advisor: Mode Culver MD Platelets (Bld) [#/Vol] 165 10*3/uL Normal 138-453 [facility] Comment on above: Performed By: #### C P, CDP, PT #### [facility] [address] [place] [address] [employer] Advisor: Mode Culver MD RBC (Bld) [#/Vol] 4.20 10*6/uL Low 4.21-5.77 [facility] Comment on above: Performed By: #### C P, CDP, PT #### [facility] [address] [place] [address] [employer] Advisor: Mode Culver MD WBC (Bld) [#/Vol] 6.9 10*3/uL Normal 3.5-11.3 [facility] Comment on above: Performed By: #### C P, CDP, PT #### [facility] [address] [place] [address] [employer] Advisor: Mode Culver MD [facility] Albumin [Mass/Vol] 3.4 g/dL Low 3.5 - 5.2 g/dL [facility] Albumin/Globulin [Mass ratio] 1.1 {ratio} 1 - 2.5 [facility] ALP (Bld) [Catalytic activity/Vol] 98 U/L 40 - 129 U/L [facility] ALT [Catalytic activity/Vol] 9 U/L 5 - 41 U/L [facility] Anion gap [Moles/Vol] 6 mmol/L Low 9 - 17 mmol/L [facility] AST [Catalytic activity/Vol] 12 U/L NINF - 40 U/L [facility] Bilirubin [Mass/Vol] 0.29 mg/dL Low 0.3 - 1.2 mg/dL [facility] Calcium [Mass/Vol] 9.1 mg/dL 8.6 - 10. 4 mg/dL [facility] Chloride [Moles/Vol] 105 mmol/L 98 - 107 mmol/L [facility] CO2 [Moles/Vol] 31 mmol/L 20 - 31 mmol/L [facility] Creatinine [Mass/Vol] 0.76 mg/dL 0.7 - 1.2 mg/dL [facility] Free PSA/Total PSA [Mass fraction] 6.4 g/dL 6.4 - 8.3 g/dL [facility] GFR >60 60 - PINF mL/min [facility] GFR Non- >60 60 - PINF mL/min [facility] Glucose [Mass/Vol] 103 mg/dL High 70 - 99 mg/dL [facility] Interpretation and review of laboratory results Abnormal [facility] Potassium [Moles/Vol] 4.3 mmol/L 3.7 - 5.3 mmol/L [facility] Sodium [Moles/Vol] 142 mmol/L 135 - 144 mmol/L [facility] Urea nitrogen (BldV) [Mass/Vol] 23 mg/dL 8 - 23 mg/dL [facility] Urea nitrogen/Creatinine (Bld) [Mass ratio] 30 High 9 - 20 [facility] COVID-19, Rapidon 05-29-2022 SARS-CoV-2 (COVID-19) RNA AMELIE+probe Ql (Unsp spec) Not detected Not Detected [facility] Comment on above: Rapid NAAT: The [...] management decisions. Fact sheet for Healthcare Providers: https://www.fda.gov/media/647068/download Fact sheet for Patients: https://www.fda.gov/media/085688/download Methodology: Isothermal Nucleic Acid Amplification Specimen Description .NASOPHARYNGEAL SWAB [facility] Comp Metabolic Profon 2021 (cont.) Normal [facility] Comment on above: Result Comment: Aver age GFR for 60-69 years old: 85 mL/min/1.73sq m Chronic Kidney Disease: <60 mL/min/1.73sq m Kidney failure: <15 mL/min/1.73sq m eGFR calculated using average adult body mass. Additional eGFR calculator available at: http://www.[employer]/multiple_crcl_2011.htm Performed By: #### C P, CDP, PT #### [facility] [address] [place] [address] Dr. [place], [place] [phone] [employer] Advisor: Mode Culver MD Albumin [Mass/Vol] 3.4 g/dL Low 3.5-5.2 [facility] Comment on above: Performed By: #### C P, CDP, PT #### [address] [place], [place] [phone] [employer] Advisor: Mode Culver MD Albumin/Glob Ratio 1.1 Normal 1.0-2.5 [facility] Comment on above: Performed By: #### C P, CDP, PT #### [address] [place], [place] [phone] [employer] Advisor: Mode Culver MD Alkaline Phos 98 U/L Normal 40-129 [facility] Comment on above: Performed By: #### C P, CDP, PT #### [facility] [address] [place] [address] Dr. [place], [place] [phone] [employer] Advisor: Mode uClver MD ALT [Catalytic activity/Vol] 9 U/L Normal 5-41 [facility] Comment on above: Performed By: #### C P, CDP, PT #### [address] [place] [address] [employer] Advisor: Mode Culver MD Anion gap [Moles/Vol] 6 mmol/L Low 9-17 [facility] Comment on above: Performed By: #### C P, CDP, PT #### [facility] [address] [place], [place] [phone] [employer] Advisor: Mode Culver MD AST [Catalytic activity/Vol] 12 U/L Normal <40 [facility] Comment on above: Performed By: #### C P, CDP, PT #### [facility] [address] [place], [place] [phone] [employer] Advisor: Mode Culver MD Bilirubin [Mass/Vol] 0.29 mg/dL Low 0.3-1.2 [facility] Comment on above: Performed By: #### C P, CDP, PT #### [address] [place], [place] [phone] [employer] Advisor: Mode Culver MD BUN/CRE Ratio 30 High 9-20 [facility] Comment on above: Performed By: #### C P, CDP, PT #### [facility] [address] [place] [address] Dr. [place], [place] 1939483 [employer] Advisor: Mode Culver MD Calcium [Mass/Vol] 9.1 mg/dL Normal 8.6-10.4 [facility] Comment on above: Performed By: #### C P, CDP, PT #### [address] [place], [place] [phone] [employer] Advisor: Mode Culver MD Chloride [Moles/Vol] 105 mmol/L Normal 98-107 [facility] Comment on above: Performed By: #### C P, CDP, PT #### [facility] [address] [place], [place] [phone] [employer] Advisor: Mode Culver MD CO2 [Moles/Vol] 31 mmol/L Normal 20-31 [facility] Comment on above: Performed By: #### C P, CDP, PT #### [facility] [address] [place] [address] Dr. [place], [place] [phone] [employer] Advisor: Mode Culver MD Creatinine [Mass/Vol] 0.76 mg/dL Normal 0.70-1.20 [facility] Comment on above: Performed By: #### C P, CDP, PT #### [facility] [address] [place] [address] [employer] Advisor: Mode Culver MD GFR, Amer >60 Normal >60 [facility] Comment on above: Performed By: #### C P, CDP, PT #### [facility] [address] [place] [address] [employer] Advisor: Mode Culver MD GFR,non Amer >60 Normal >60 [facility] Comment on above: Performed By: #### C P, CDP, PT #### [facility] [address] [place], [place] [phone] [employer] Advisor: Mode Culver MD Glucose [Mass/Vol] 103 mg/dL High 70-99 [facility] Comment on above: Performed By: #### C P, CDP, PT #### [address] [place], [place] [phone] [employer] Advisor: Mdoe Culver MD Potassium [Moles/Vol] 4.3 mmol/L Normal 3.7-5.3 [facility] Comment on above: Performed By: #### C P, CDP, PT #### [facility] [address] [place] [address] Dr. [place], [place] 2243283 [employer] Advisor: Mode Culver MD Protein [Mass/Vol] 6.4 g/dL Normal 6.4-8.3 [facility] Comment on above: Performed By: #### C P, CDP, PT #### [facility] [address] [place] [address] [employer] Advisor: Mode Culver MD Sodium [Moles/Vol] 142 mmol/L Normal 135-144 [facility] Comment on above: Performed By: #### C P, CDP, PT #### [facility] [address] [place] [address] [employer] Advisor: Mode Culver MD Staging: Normal [facility] Comment on above: Result Comment: Stag e 1: Some kidney damage normal GFR Stage 2: Mild kidney damage GFR 60-89 Stage 3: Moderate kidney damage GFR 30-59 Stage 4: Severe kidney damage GFR 15-29 Stage 5: Severe kidney damage GFR <15 ESRD - chronic treatment by dialysis or transplant Performed By: #### C P, CDP, PT #### [facility] [address] [place], [place] [phone] [employer] Advisor: Mode Culver MD Urea nitrogen [Mass/Vol] 23 mg/dL Normal 05-29 [facility] Comment on above: Performed By: #### C P, CDP, PT #### [facility] [address] [place] [address] [employer] Advisor: Mode Culver MD EKG 12 LeadOrdered By: Iesha church on 05-29-2022 Atrial Rate 71 BPM [employer] Phone: P Viola 47 degrees [employer] Phone: P-R Interval 180 ms [employer] Phone: Q-T Interval 404 ms [employer] Phone: QRS Duration 96 ms [employer] Phone: QTc Calculation (Bazett) 439 ms [employer] Phone: R Viola 95 degrees [employer] Phone: T Viola 46 degrees [employer] Phone: Ventricular Rate 71 BPM [employer] Phone: [employer] Phone: EKG 12 Leadon 05-29-2022 Normal sinus rhythm Rightward axis Pulmonary disease pattern Abnormal ECG When compared with ECG of 25-JUL-2017 09:57, Significant changes noted. Confirmed by Iesha Stewart MD ([id number]) on 05/29/2022 7:53:42 PM [facility] Iesha Stewart MD - 05/29/2022 Normal sinus rhythm Rightward axis Pulmonary disease pattern Abnormal ECG When compared with ECG of 25-JUL-2017 09:57, Significant changes noted. Confirmed by Iesha Stewart MD ([id number]) on 05/29/2022 7:53:42 PM [facility] Work Phone: Laboratory - Chemistry and C hemistry - challengeon 05-29-2022 GFR/1.73 sq M.predicted MDRD (S/P/Bld) [Vol rate/Area] [facility] Comment on above: Average GFR for 60-6 9 years old: 85 mL/min/1.73sq m Chronic Kidney Disease: <60 mL/min/1.73sq m Kidney failure: <15 mL/min/1.73sq m eGFR calculated using average adult body mass. Additional eGFR calculator available at: http://www.[employer]/multiple_crcl_2012.htm Stage 1: Some kidney damage normal GFR Stage 2: Mild kidney damage GFR 60-89 Stage 3: Moderate kidney damage GFR 30-59 Stage 4: Severe kidney damage GFR 15-29 Stage 5: Severe kidney damage GFR <15 ESRD - chronic treatment by dialysis or transplant PTon 05-29-2022 INR Coag (PPP) [Relative time] 1.1 {INR} Normal [facility] Comment on above: Result Comment: Non-therapeutic Range: INR = 0.9-1.2 Therapeutic Range: Moderate Anticoagulant Intensity: INR = 2.0-3.0 High Anticoagulant Intensity: INR = 2.5-3.5 Performed By: #### C P, CDP, PT #### [facility] [address] [place] [address] [employer] Advisor: Mode Culver MD PT Coag (PPP) [Time] 14.0 s Normal 11.5-14.2 [facility] Comment on above: Performed By: #### C P, CDP, PT #### [facility] [address] [place] [address] [employer] Advisor: Mode Culver MD Protime-INRon 05-29-2022 INR Coag (Bld) [Relative time] 1.1 {INR} [facility] Comment on above: Non-therapeutic Range: INR = 0.9-1.2 Therapeutic Range: Moderate Anticoagulant Intensity: INR = 2.0-3.0 High Anticoagulant Intensity: INR = 2.5-3.5 PT Coag (PPP) [Time] 14 s [facility] [id number] 05-29-2022 SARS-CoV-2 (COVID-19) RNA AMELIE+probe Ql (Unsp spec) Not detected Normal NOTDET [facility] Comment on above: Result Comment: Rapid NAAT: [...] management decisions. Fact sheet for Healthcare Providers: https://www.fda.gov/media/477558/download Fact sheet for Patients: https://www.fda.gov/media/224573/download Methodology: Isothermal Nucleic Acid Amplification Performed By: #### B CUL2 #### [address] [place] [address] [employer] Advisor: Mode Culver MD Venous Blood Gaseson 022 [employer] Test PASS Normal [facility] Comment on above: Performed By: #### V BG #### [facility] [address] [place] [address] [employer] Advisor: Mode Culver MD Body Temp. 37.0 Normal [facility] Comment on above: Performed By: #### V BG #### [facility] [address] [place], [place] [id number] [employer] Advisor: Mode Culver MD HCO3 (Bld) [Moles/Vol] 31.5 mmol/L High 24.0-30.0 [facility] Comment on above: Performed By: #### V BG #### [facility] [address] [place] [address] [employer] Advisor: Mode Culver MD O2 Device/Flow/% ROOM AIR Normal [facility] Comment on above: Performed By: #### V BG #### [facility] [address] [place] [address] [employer] Advisor: Mode Culver MD Oxygen (Bld) [Partial pressure] 30.7 mm[Hg] Normal 30.0-50.0 [facility] Comment on above: Performed By: #### V BG #### [facility] [address] [place], [place] [id number] [employer] Advisor: Mode Culver MD Oxygen saturation in Blood 55.3 % Low 60.0-85.0 [facility] Comment on above: Performed By: #### V BG #### [facility] [address] [place], [place] [id number] [employer] Advisor: oMde Culver MD pCO2 56.4 High 39-55 [facility] Comment on above: Performed By: #### V BG #### [facility] [address] [place] [address] [employer] Advisor: Mode Culver MD pH (Bld) 7.365 [pH] Normal 7.32-7.42 [facility] Comment on above: Performed By: #### V BG #### [facility] [address] [place] [address] [employer] Advisor: Mode Culver MD Positive Base Excess 4.5 mmol/L High 0.0-2.0 [facility] Comment on above: Performed By: #### V BG #### [facility] [address] [place], [place] [id number] [employer] Advisor: Mode Culver MD Pt. Position SEMI-FOWLERS Normal [facility] Comment on above: Performed By: #### V BG #### [facility] [address] [place] [address] [employer] Advisor: Mode Culver MD Site Drawn Left Brachial Artery Normal [facility] Comment on above: Performed By: #### V BG #### [facility] [address] [place] [address] [employer] Advisor: Mode Culver MD XR CHEST PORTABLEon 05-29-20 [...] Kianna Wyman MD 05/29/22 Final result Normal [facility] Low lung volumes wit h probable bronchitis and greater bandlike opacity medial right base, either segmental atelectasis/scarring or possibly pneumonia. No radiographic CHF. [facility] EXAMINATION: ONE XRAY VIEW OF THE [...] again with degenerative findings spine and shoulders. [facility] Kianna Wyman MD - 05/29/2022 EXAMINATION: [...] atelectasis/scarring or possibly pneumonia. No radiographic CHF. [employer] Phone: Radiology Study observation (narrative) [employer] Phone: XR CHEST PORTABLEOrdered By: Kianna Wyman on 05-29-2022 [employer] Phone: LIPID PROFILEon 01-06-2022 CHOL-HDL RATIO NORM SEE BELOW Normal [facility] Comment on above: Result Comment: 3.3 - 4.4 LOW RISK 4.4 - 7.1 AVERAGE RISK 7.1 - 11.0 MODERATE RISK >11.0 HIGH RISK Performed By: #### T TERESITA, HSTROPN, CRP, CMP #### [facility] [address] [place] [address] Dr. Jarek Barrera Cholesterol [Mass/Vol] 124 mg/dL Normal <=200 [facility] Comment on above: Performed By: #### T TERESITA, HSTROPN, CRP, CMP #### [facility] [address] [address] [address] Jarek Barrera Cholesterol in HDL [Mass/Vol] 42 mg/dL Normal 40-60 [facility] Comment on above: Performed By: #### T TERESITA, HSTROPN, CRP, CMP #### [facility] [address] [place] [address] Dr. Jarek Barrera Cholesterol in LDL [Mass/Vol] 67.6 mg/dL Normal [facility] Comment on above: Performed By: #### T TERESITA, HSTROPN, CRP, CMP #### [facility] [address] [address] [address] Jarek Barrera Cholesterol.total/C holesterol in HDL [Mass ratio] 3.0 {ratio} Normal [facility] Comment on above: Performed By: #### T TERESITA, HSTROPN, CRP, CMP #### [facility] [address] [place] [address] Dr. Jarek Barrera HDL NORMAL > or = 60 mg/dl - LO W CARDIOVASCULAR RISK <40 mg/dl - HIGH CARDIOVASCULAR RISK Normal [facility] Comment on above: Performed By: #### T TERESITA, HSTROPN, CRP, CMP #### [facility] [address] [place] [address] Dr. Jarek Barrera LDL CALC NORMAL SEE BELOW Normal [facility] Comment on above: Result Comment: <100 mg/dl OPTIMAL 100 - 129 mg/dl NEAR OR ABOVE OPTIMAL 130 - 159 mg/dl BORDERLINE HIGH 160 - 189 mg/dl HIGH >190 mg/dl VERY HIGH Performed By: #### T TERESITA, HSTROPN, CRP, CMP #### [facility] [address] [address] [address] Jarek Barrera Triglyceride [Mass/Vol] 72 mg/dL Normal <=150 [facility] Comment on above: Performed By: #### T TERESITA, HSTROPN, CRP, CMP #### [facility] [address] [address] [address] Jarek Barrera VLDL CALC 14.4 mg/dL Normal [facility] Comment on above: Performed By: #### T TERESITA, HSTROPN, CRP, CMP #### [facility] [address] [address] [address] Jarek Barrera PROF 14(COMP METB)on 022 Albumin [Mass/Vol] 2.8 g/dL Critically low 3.4-5.0 [facility] Comment on above: Performed By: #### T TERESITA, HSTROPN, CRP, CMP #### [facility] [address] [address] [address] Jarek Barrera Albumin/Globulin [Mass ratio] 0.7 {ratio} Normal [facility] Comment on above: Performed By: #### T TERESITA, HSTROPN, CRP, CMP #### [facility] [address] [address] [address] Jarek Barrera ALP [Catalytic activity/Vol] 94 U/L Normal 46-116 [facility] Comment on above: Performed By: #### T TERESITA, HSTROPN, CRP, CMP #### [facility] [address] [address] [address] Jarek Barrera ALT [Catalytic activity/Vol] 8 U/L Critically low 16-63 [facility] Comment on above: Performed By: #### T TERESITA, HSTROPN, CRP, CMP #### [facility] [address] [place] [address] Dr. Jarek Barrera Anion gap [Moles/Vol] 10.4 mmol/L Normal [facility] Comment on above: Performed By: #### T TERESITA, HSTROPN, CRP, CMP #### [facility] [address] [address] [address] Jarek Barrera AST [Catalytic activity/Vol] 15 U/L Normal 15-37 [facility] Comment on above: Performed By: #### T TERESITA, HSTROPN, CRP, CMP #### [facility] [address] [address] [address] Jarek Barrera Bilirubin [Mass/Vol] 0.4 mg/dL Normal 0.2-1.3 [facility] Comment on above: Performed By: #### T TERESITA, HSTROPN, CRP, CMP #### [facility] [address] [place] [address] Dr. Jarek Barrera Calcium [Mass/Vol] 8.7 mg/dL Normal 8.5-10.1 [facility] Comment on above: Performed By: #### T TERESITA, HSTROPN, CRP, CMP #### [facility] [address] [place] [address] Dr. Jarek Barrera Chloride [Moles/Vol] 107 mmol/L Normal 98-107 [facility] Comment on above: Performed By: #### T TERESITA, HSTROPN, CRP, CMP #### [facility] [address] [place] [address] Dr. Jarek Barrera CO2 [Moles/Vol] 32.2 mmol/L Critically high 22.0-30.0 [facility] Comment on above: Performed By: #### T TERESITA, HSTROPN, CRP, CMP #### [facility] [address] [place] [address] Dr. Jarek Barrera Creatinine [Mass/Vol] 0.81 mg/dL Normal 0.66-1.25 [facility] Comment on above: Performed By: #### T TERESITA, HSTROPN, CRP, CMP #### [facility] [address] [place] [address] Dr. Jarek Barrera EGFR-AF VINCENTIAN >60 Normal >=60 [facility] Comment on above: Performed By: #### T TERESITA, HSTROPN, CRP, CMP #### [facility] [address] [address] [address] Jarek Barrera EGFR-NON AF VINCENTIAN >60 Normal >=60 [facility] Comment on above: Performed By: #### T TERESITA, HSTROPN, CRP, CMP #### [facility] [address] [address] [address] Jarek Barrera Globulin (S) [Mass/Vol] 4.1 g/dL Normal [facility] Comment on above: Performed By: #### T TERESITA, HSTROPN, CRP, CMP #### [facility] [address] [address] [address] Jarek Barrera Glucose [Mass/Vol] 103 mg/dL Normal 74-106 [facility] Comment on above: Performed By: #### T TERESITA, HSTROPN, CRP, CMP #### [facility] [address] [place] [address] Dr. Jarek Barrera Potassium [Moles/Vol] 4.6 mmol/L Normal 3.4-5.0 [facility] Comment on above: Performed By: #### T TERESITA, HSTROPN, CRP, CMP #### [facility] [address] [address] [address] Jarek Barrera Protein [Mass/Vol] 6.9 g/dL Normal 6.1-8.2 [facility] Comment on above: Performed By: #### T TERESITA, HSTROPN, CRP, CMP #### [facility] [address] [address] [address] Jarek Barrera Sodium [Moles/Vol] 145 mmol/L Normal 137-145 [facility] Comment on above: Performed By: #### T TERESITA, HSTROPN, CRP, CMP #### [facility] [address] [place] [address] Dr. Jarek Barrera Urea nitrogen [Mass/Vol] 19.0 mg/dL Critically high 7.0-18.0 [facility] Comment on above: Performed By: #### T TERESITA, HSTROPN, CRP, CMP #### [facility] [address] [address] [address] Jarek Barrera Urea nitrogen/Creatinine [Mass ratio] 23.5 mg/mg Normal [facility] Comment on above: Performed By: #### T TERESITA, HSTROPN, CRP, CMP #### [facility] [address] [place] [address] Dr. Jarek Barrera XR CHEST (SINGLE VIEW [...] by: Jamar Garcia 12/27/21 Final result Normal [facility] BLOOD GASES BTYon 11-25-2021 02 MODE ROOM AIR Normal [facility] Comment on above: Performed By: #### A BG #### [facility] [address] [place] [address] Dr. Jarek Barrera ALLENIra TEST Positive Normal [facility] Comment on above: Performed By: #### A BG #### [facility] [address] [address] [address] Jarek Barrera Base excess Calc (Bld) [Moles/Vol] 2.9 mmol/L Critically high -2.0-2.0 [facility] Comment on above: Performed By: #### A BG #### [facility] [address] [place] [address] Dr. Jarek Barrera BIPAP PRESSURE Normal [facility] Comment on above: Performed By: #### A BG #### [facility] [address] [address] [address] Jarek Barrera CO2 [Moles/Vol] 28.2 mmol/L Critically high 23.0-28.0 [facility] Comment on above: Performed By: #### A BG #### [facility] [address] [address] [address] Jarek Barrera CPAP Normal [facility] Comment on above: Performed By: #### A BG #### [facility] [address] [address] [address] Jarek Barrera FIO2 [facility] Comment on above: Performed By: #### A BG #### [facility] [address] [address] [address] Jarek Barrera HCO3 (Bld) [Moles/Vol] 27.0 mmol/L Critically high 22.0-26.0 [facility] Comment on above: Performed By: #### A BG #### [facility] [address] [address] [address] Jarek Barrera LPM [facility] Comment on above: Performed By: #### A BG #### [facility] [address] [address] [address] Jarek Barrera MINUTE VOLUME Normal [facility] Comment on above: Performed By: #### A BG #### [facility] [address] [place] [address] Dr. Jarek Barrera Oxygen (Bld) [Partial pressure] 59.3 mm[Hg] Critically low 80.0-100.0 [facility] Comment on above: Performed By: #### A BG #### [facility] [address] [address] [address] Jarek Barrera Oxygen saturation in Blood 91.0 % Critically low 95.0-100.0 [facility] Comment on above: Performed By: #### A BG #### [facility] [address] [address] [address] Jarek Barrera PCO2 39.6 mmHg Normal 35.0-45.0 [facility] Comment on above: Performed By: #### A BG #### [facility] [address] [place] [address] Dr. Jarek Barrera PEEP [facility] Comment on above: Performed By: #### A BG #### [facility] [address] [place] [address] Dr. Jarek Barrera pH (Bld) 7.451 [pH] Critically high 7.350-7.450 [facility] Comment on above: Performed By: #### A BG #### [facility] [address] [place] [address] Dr. Jarek Barrera [facility] Comment on above: Performed By: #### A BG #### [facility] [address] [place] [address] [facility] Comment on above: Performed By: #### A BG #### [facility] [address] [place] [address] Dr. Jarek Barrera PUNCTURE SITE RB [facility] Comment on above: Performed By: #### A BG #### [facility] [address] [place] [address] Dr. Jarek Barrera RATE [facility] Comment on above: Performed By: #### A BG #### [facility] [address] [place] [address] Dr. Jarek Barrera VENT MODE [facility] Comment on above: Performed By: #### A BG #### [facility] [address] [place] [address] Dr. Jarek Barrera [facility] Comment on above: Performed By: #### A BG #### [facility] [address] [place] [address] Dr. Jarek Barrera CARDIAC JESSICA 3-6on 2 CK [Catalytic activity/Vol] 38 U/L Critically low 55-170 [facility] Comment on above: Performed By: #### C MREP #### [facility] [address] [place] [address] Dr. Jarek Barrera CK.MB [Mass/Vol] 0.78 ng/mL Normal <=2.37 [facility] Comment on above: Performed By: #### C MREP #### [facility] [address] [address] [address] Jarek Barrera HSTROP 7.9 pg/mL Normal 4.0-42.2 [facility] Comment on above: Result Comment: CUT- OFF POINTS HAVE BEEN ESTABLISHED BASED ON THE FOURTH UNIVERSAL DEFINITIONS OF MYOCARDIAL INFARCTION. THE UPPER REFERENCE LIMIT (URL) OF TROPONIN, DEFINED THE 99TH PERCENTILE OF cTnI DISTRIBUTION IN A REFERENCE POPULATION, HAS BEEN CONFIRMED THE DECISION THRESHOLD FOR MS DIAGNOSIS. Performed By: #### C MREP #### [facility] [address] [address] [address] Jarek Barrera CK [Catalytic activity/Vol] 28 U/L Critically low 55-170 [facility] Comment on above: Performed By: #### T TERESITA, HSTROPN, CRP, CMP #### [facility] [address] [place] [address] Dr. Jarek Barrera CK.MB [Mass/Vol] 0.66 ng/mL Normal <=2.37 [facility] Comment on above: Performed By: #### T TERESITA, HSTROPN, CRP, CMP #### [facility] [address] [place] [address] Dr. Jarek Barrera HSTROP 10.0 pg/mL Normal 4.0-42.2 [facility] Comment on above: Result Comment: CUT- OFF POINTS HAVE BEEN ESTABLISHED BASED ON THE FOURTH UNIVERSAL DEFINITIONS OF MYOCARDIAL INFARCTION. THE UPPER REFERENCE LIMIT (URL) OF TROPONIN, DEFINED THE 99TH PERCENTILE OF cTnI DISTRIBUTION IN A REFERENCE POPULATION, HAS BEEN CONFIRMED THE DECISION THRESHOLD FOR MS DIAGNOSIS. Performed By: #### T TERESITA, HSTROPN, CRP, CMP #### [facility] [address] [place] [address] Dr. Jarek Barrera CARDIAC JESSICA ADMITon 022 CK [Catalytic activity/Vol] 32 U/L Critically low 55-170 [facility] Comment on above: Performed By: #### T TERESITA, HSTROPN, CRP, CMP #### [facility] [address] [place] [address] Dr. Jarek Barrera CK.MB [Mass/Vol] 0.71 ng/mL Normal <=2.37 [facility] Comment on above: Performed By: #### T TERESITA, HSTROPN, CRP, CMP #### [facility] [address] [place] [address] Dr. Jarek Barrera HSTROP 7.9 pg/mL Normal 4.0-42.2 [facility] Comment on above: Result Comment: CUT- OFF POINTS HAVE BEEN ESTABLISHED BASED ON THE FOURTH UNIVERSAL DEFINITIONS OF MYOCARDIAL INFARCTION. THE UPPER REFERENCE LIMIT (URL) OF TROPONIN, DEFINED THE 99TH PERCENTILE OF cTnI DISTRIBUTION IN A REFERENCE POPULATION, HAS BEEN CONFIRMED THE DECISION THRESHOLD FOR MS DIAGNOSIS. Performed By: #### T TERESITA, HSTROPN, CRP, CMP #### [facility] [address] [place] [address] Dr. Jarek Barrera LEANNE 78.0 ng/mL Normal <=121.0 [facility] Comment on above: Performed By: #### T TERESITA, HSTROPN, CRP, CMP #### [facility] [address] [place] [address] Dr. Jarek Barrera CBC AUTO DIFFon 11-25-2021 BASO # 0.0 103/ul Normal 0.0-0.1 [facility] Comment on above: Performed By: #### C BC #### [facility] [address] [place] [address] Dr. Jarek Barrera Basophils/100 WBC (Bld) 0.1 % Critically low 0.2-2.0 [facility] Comment on above: Performed By: #### C BC #### [facility] [address] [place] [address] Dr. Jarek Barrera EO # 0.1 103/ul Normal 0.0-0.7 [facility] Comment on above: Performed By: #### C BC #### [facility] [address] [place] [address] Dr. Jarek Barrera Eosinophils/100 WBC (Bld) 1.3 % Normal 0.9-7.0 [facility] Comment on above: Performed By: #### C BC #### [facility] [address] [address] [address] Jarek Barrera Erythrocyte distribution width (RBC) [Ratio] 14.7 % Normal 11.0-15.0 [facility] Comment on above: Performed By: #### C BC #### [facility] [address] [place] [address] Dr. Jarek Barrera Hematocrit (Bld) [Volume fraction] 47.0 % Normal 42.0-54.0 [facility] Comment on above: Performed By: #### C BC #### [facility] [address] [place] [address] Dr. Jarek Barrera Hemoglobin (Bld) [Mass/Vol] 14.8 g/dL Normal 14.0-18.0 [facility] Comment on above: Performed By: #### C BC #### [facility] [address] [place] [address] Dr. Jarek Barrera IG # 0.06 10e3/ul Critically high 0.00-0.03 [facility] Comment on above: Performed By: #### C BC #### [facility] [address] [place] [address] Dr. Jarek Barrera IG % 0.7 % Critically high 0.0-0.5 [facility] Comment on above: Performed By: #### C BC #### [facility] [address] [place] [address] Dr. Jarek Barrera LYMPH # 0.8 103/ul Critically low 1.2-3.8 [facility] Comment on above: Performed By: #### C BC #### [facility] [address] [place] [address] Dr. Jarek Barrera Lymphocytes/100 WBC (Bld) 9.7 % Critically low 20.5-60.0 [facility] Comment on above: Performed By: #### C BC #### [facility] [address] [place] [address] Dr. Jarek Barrera MANUAL DIFF REQ NO Normal [facility] Comment on above: Performed By: #### C BC #### [facility] [address] [address] [address] Jarek Barrera MCH (RBC) [Entitic mass] 31.2 pg Normal 25.9-34.0 [facility] Comment on above: Performed By: #### C BC #### [facility] [address] [address] [address] Jarek Barrera MCHC (RBC) [Mass/Vol] 31.5 g/dL Normal 29.9-35.2 [facility] Comment on above: Performed By: #### C BC #### [facility] [address] [address] [address] Jarek Barrera MCV (RBC) [Entitic vol] 99.2 fL Critically high 80.0-94.0 [facility] Comment on above: Performed By: #### C BC #### [facility] [address] [place] [address] Dr. Jarek Barrera MONO # 0.6 103/ul Normal 0.3-0.8 [facility] Comment on above: Performed By: #### C BC #### [facility] [address] [place] [address] Dr. Jarek Barrera Monocytes/100 WBC (Bld) 7.3 % Normal 1.7-12.0 [facility] Comment on above: Performed By: #### C BC #### [facility] [address] [place] [address] Dr. Jarek Barrera NEUT # 6.9 103/ul Critically high 1.4-6.5 [facility] Comment on above: Performed By: #### C BC #### [facility] [address] [place] [address] Dr. Jarek Barrera Neutrophils/100 WBC (Bld) 80.9 % Critically high 43.0-75.0 [facility] Comment on above: Performed By: #### C BC #### [facility] [address] [place] [address] Dr. Jarek Barrera Platelet mean volume (Bld) [Entitic vol] 11.2 fL Normal 9.5-13.5 [facility] Comment on above: Performed By: #### C BC #### [facility] [address] [place], [place] [address] Dr. Jarek Barrera PLT 200 103/ul Normal 150-450 [facility] Comment on above: Performed By: #### C BC #### [facility] [address] [place], [place] [address] Dr. Jarek Barrera RBC 4.74 106/ul Normal 4.70-6.10 [facility] Comment on above: Performed By: #### C BC #### [facility] [address] [place], [place] [address] Dr. Jarek Barrera WBC 8.5 103/ul Normal 4.0-11.0 [facility] Comment on above: Performed By: #### C BC #### [facility] [address] NECK ST W [...] and symmetric. CAROTID SPACE: Normal in appearance. 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 RETROPHARYNGEAL SPACE: Normal [...] There is generalized disc space narrowing with [id number] appearance from C4 through C7. VISUALIZED BRAIN: [...] by: KRISTI GRIFFIN Date: 2021-11-25 01:54 Normal [facility] CTA CHEST WO W CONon 022 CTA [...] ALEXX FOREMAN Date: 2021-11-25 02:19 Normal [facility] Covid-19 PCR (CVDTBH)on 11-07 SARS-CoV-2 (COVID-19) RNA AMELIE+probe Ql (Unsp spec) Detected Critically abnormal NOT DETECTED [facility] Comment on above: Result Comment: This test is not yet approved or cleared by the [place] Food and Drug Administration (FDA). This test was developed by [employer], [place], [place]. The performance characteristics of this test were validated by [facility]. The results are not intended to be used as the sole means for clinical diagnosis or patient management decisions. [facility] is authorized under Clinical Laboratory Improvement Amendments [...] for this test is supported by the [place] of Health and Human Service's declaration that [...] #### T TERESITA, HSTROPN, CRP, CMP #### [facility] [address] [address] [address] Jarek Barrera LACTATE/LACTIC ACIDon 2021 Lactate [Moles/Vol] 1.5 mmol/L Normal 0.7-2.0 [facility] Comment on above: Performed By: #### T TERESITA, HSTROPN, CRP, CMP #### [facility] [address] [address] [address] Jarek Barrera Lactate [Moles/Vol] 3.0 mmol/L Critically high 0.7-2.0 [facility] Comment on above: Result Comment: test repeated Performed By: #### T TERESITA, HSTROPN, CRP, CMP #### [facility] [address] [place] [address] Dr. Jarek Barrera PROF CHEM 8 (BAS METB)on Anion gap [Moles/Vol] 10.0 mmol/L Normal [facility] Comment on above: Performed By: #### T TERESITA, HSTROPN, CRP, CMP #### [facility] [address] [place] [address] Dr. Jarek Barrera Calcium [Mass/Vol] 8.1 mg/dL Critically low 8.4-10.2 [facility] Comment on above: Performed By: #### T TERESITA, HSTROPN, CRP, CMP #### [facility] [address] [place] [address] Dr. Jarek Barrera Chloride [Moles/Vol] 110 mmol/L Critically high 98-107 [facility] Comment on above: Performed By: #### T TERESITA, HSTROPN, CRP, CMP #### [facility] [address] [place] [address] Dr. Jarek Barrera CO2 [Moles/Vol] 27.7 mmol/L Normal 22.0-30.0 [facility] Comment on above: Performed By: #### T TERESITA, HSTROPN, CRP, CMP #### [facility] [address] [address] [address] Jarek Barrera Creatinine [Mass/Vol] 0.85 mg/dL Normal 0.66-1.25 [facility] Comment on above: Performed By: #### T TERESITA, HSTROPN, CRP, CMP #### [facility] [address] [place] [address] Dr. Jarek Barrera EGFR-AF VINCENTIAN >60 Normal >=60 [facility] Comment on above: Performed By: #### T TERESITA, HSTROPN, CRP, CMP #### [facility] [address] [place] [address] Dr. Jarek Barrera EGFR-NON AF VINCENTIAN >60 Normal >=60 [facility] Comment on above: Performed By: #### T TERESITA, HSTROPN, CRP, CMP #### [facility] [address] [address] [address] Jarek Barrera Glucose [Mass/Vol] 141 mg/dL Critically high 74-106 [facility] Comment on above: Performed By: #### T TERESITA, HSTROPN, CRP, CMP #### [facility] [address] [address] [address] Jarek Barrera Potassium [Moles/Vol] 3.7 mmol/L Normal 3.4-5.0 [facility] Comment on above: Performed By: #### T TERESITA, HSTROPN, CRP, CMP #### [facility] [address] [address] [address] Jarek Barrera Sodium [Moles/Vol] 144 mmol/L Normal 137-145 [facility] Comment on above: Performed By: #### T TERESITA, HSTROPN, CRP, CMP #### [facility] [address] [address] [address] Jarek Barrera Urea nitrogen [Mass/Vol] 17.0 mg/dL Normal 9.0-20.0 [facility] Comment on above: Performed By: #### T TERESITA, HSTROPN, CRP, CMP #### [facility] [address] [address] [address] Jarek Barrera Urea nitrogen/Creatinine [Mass ratio] 20.0 mg/mg Normal [facility] Comment on above: Performed By: #### T TERESITA, HSTROPN, CRP, CMP #### [facility] [address] [address] [address] Jarek Barrera XR CHEST 1 Von [...] Tiffanie POWER Date: 2021-11-25 01:17 Normal [facility] CBC AUTO DIFFon 11-22-2021 BASO # 0.0 103/ul Normal 0.0-0.1 [facility] Comment on above: Performed By: #### T TERESITA, HSTROPN, CRP, CMP #### [facility] [address] [place] [address] Dr. Jarek Barrera Basophils/100 WBC (Bld) 0.2 % Normal 0.2-2.0 [facility] Comment on above: Performed By: #### T TERESITA, HSTROPN, CRP, CMP #### [facility] [address] [place] [address] Dr. Jarek Barrera EO # 0.0 103/ul Normal 0.0-0.7 [facility] Comment on above: Performed By: #### T TERESITA, HSTROPN, CRP, CMP #### [facility] [address] [place] [address] Dr. Jarek Barrera Eosinophils/100 WBC (Bld) 0.2 % Critically low 0.9-7.0 [facility] Comment on above: Performed By: #### T TERESITA, HSTROPN, CRP, CMP #### [facility] [address] [place] [address] Dr. Jarek Barrera Erythrocyte distribution width (RBC) [Ratio] 14.6 % Normal 11.0-15.0 [facility] Comment on above: Performed By: #### T TERESITA, HSTROPN, CRP, CMP #### [facility] [address] [place] [address] Dr. Jarek Barrera Hematocrit (Bld) [Volume fraction] 39.3 % Critically low 42.0-54.0 [facility] Comment on above: Performed By: #### T TERESITA, HSTROPN, CRP, CMP #### [facility] [address] [address] [address] Jarek Barrera Hemoglobin (Bld) [Mass/Vol] 12.4 g/dL Critically low 14.0-18.0 [facility] Comment on above: Performed By: #### T TERESITA, HSTROPN, CRP, CMP #### [facility] [address] [address] [address] Jarek Barrera IG # 0.04 10e3/ul Critically high 0.00-0.03 [facility] Comment on above: Performed By: #### T TERESITA, HSTROPN, CRP, CMP #### [facility] [address] [place] [address] Dr. Jarek Barrera IG % 0.6 % Critically high 0.0-0.5 [facility] Comment on above: Performed By: #### T TERESITA, HSTROPN, CRP, CMP #### [facility] [address] [place] [address] Dr. Jarek Barrera LYMPH # 0.9 103/ul Critically low 1.2-3.8 [facility] Comment on above: Performed By: #### T TERESITA, HSTROPN, CRP, CMP #### [facility] [address] [place] [address] Dr. Jarek Barrera Lymphocytes/100 WBC (Bld) 14.2 % Critically low 20.5-60.0 [facility] Comment on above: Performed By: #### T TERESITA, HSTROPN, CRP, CMP #### [facility] [address] [place] [address] Dr. Jarek Barrera MANUAL DIFF REQ NO Normal [facility] Comment on above: Performed By: #### T TERESITA, HSTROPN, CRP, CMP #### [facility] [address] [place] [address] Dr. Jarek Barrera MCH (RBC) [Entitic mass] 31.8 pg Normal 25.9-34.0 [facility] Comment on above: Performed By: #### T TERESITA HSTROPN, CRP, CMP #### [facility] [address] [place] [address] Dr. Jarek Barrera MCHC (RBC) [Mass/Vol] 31.6 g/dL Normal 29.9-35.2 [facility] Comment on above: Performed By: #### T TERESITA, HSTROPN, CRP, CMP #### [facility] [address] [place] [address] Dr. Jarek Barrera MCV (RBC) [Entitic vol] 100.8 fL Critically high 80.0-94.0 [facility] Comment on above: Performed By: #### T TERESITA, HSTROPN, CRP, CMP #### [facility] [address] [place] [address] Dr. Jarek Barrera MONO # 0.6 103/ul Normal 0.3-0.8 [facility] Comment on above: Performed By: #### T TERESITA, HSTROPN, CRP, CMP #### [facility] [address] [place] [address] Dr. Jarek Barrera Monocytes/100 WBC (Bld) 9.3 % Normal 1.7-12.0 [facility] Comment on above: Performed By: #### T TERESITA, HSTROPN, CRP, CMP #### [facility] [address] [place] [address] Dr. Jarek Barrera NEUT # 4.7 103/ul Normal 1.4-6.5 [facility] Comment on above: Performed By: #### T TERESITA, HSTROPN, CRP, CMP #### [facility] [address] [place] [address] Dr. Jarek Barrera Neutrophils/100 WBC (Bld) 75.5 % Critically high 43.0-75.0 [facility] Comment on above: Performed By: #### T TERESITA, HSTROPN, CRP, CMP #### [facility] [address] [place] [address] Dr. Jarek Barrera Platelet mean volume (Bld) [Entitic vol] 12.6 fL Normal 9.5-13.5 [facility] Comment on above: Performed By: #### T TERESITA, HSTROPN, CRP, CMP #### [facility] [address] [address] [address] Jarek Barrera PLT 112 103/ul Critically low 150-450 [facility] Comment on above: Performed By: #### T TERESITA, HSTROPN, CRP, CMP #### [facility] [address] [address] [address] Jarek Barrera RBC 3.90 106/ul Critically low 4.70-6.10 [facility] Comment on above: Performed By: #### T TERESITA, HSTROPN, CRP, CMP #### [facility] [address] [address] [address] Jarek Barrera WBC 6.3 103/ul Normal 4.0-11.0 [facility] Comment on above: Performed By: #### T TERESITA, HSTROPN, CRP, CMP #### [facility] [address] [address] [address] Jarek Barrera PROF 14(COMP METB)on 022 Albumin [Mass/Vol] 1.9 g/dL Critically low 3.5-5.0 [facility] Comment on above: Performed By: #### T TERESITA, HSTROPN, CRP, CMP #### [facility] [address] [place] [address] Dr. Jarek Barrera Albumin/Globulin [Mass ratio] 0.5 {ratio} Normal [facility] Comment on above: Performed By: #### T TERESITA, HSTROPN, CRP, CMP #### [facility] [address] [place] [address] Dr. Jarek Barrera ALP [Catalytic activity/Vol] 56 U/L Normal 38-126 [facility] Comment on above: Performed By: #### T TERESITA, HSTROPN, CRP, CMP #### [facility] [address] [address] [address] Jarek Barrera ALT [Catalytic activity/Vol] 10 U/L Critically low 21-72 [facility] Comment on above: Performed By: #### T TERESITA, HSTROPN, CRP, CMP #### [facility] [address] [address] [address] Jarek Barrera Anion gap [Moles/Vol] 5.4 mmol/L Normal [facility] Comment on above: Performed By: #### T TERESITA, HSTROPN, CRP, CMP #### [facility] [address] [address] [address] Jarek Barrera AST [Catalytic activity/Vol] 21 U/L Normal 17-59 [facility] Comment on above: Performed By: #### T TERESITA, HSTROPN, CRP, CMP #### [facility] [address] [place] [address] Dr. Jarek Barrera Bilirubin [Mass/Vol] 0.3 mg/dL Normal 0.2-1.3 [facility] Comment on above: Performed By: #### T TERESITA, HSTROPN, CRP, CMP #### [facility] [address] [address] [address] Jarek Barrera Calcium [Mass/Vol] 8.0 mg/dL Critically low 8.4-10.2 [facility] Comment on above: Performed By: #### T TERESITA, HSTROPN, CRP, CMP #### [facility] [address] [address] [address] Jarek Barrera Chloride [Moles/Vol] 116 mmol/L Critically high 98-107 [facility] Comment on above: Performed By: #### T TERESITA, HSTROPN, CRP, CMP #### [facility] [address] [address] [address] Jarek Barrera CO2 [Moles/Vol] 28.5 mmol/L Normal 22.0-30.0 [facility] Comment on above: Performed By: #### T TERESITA, HSTROPN, CRP, CMP #### [facility] [address] [address] [address] Jarek Barrera Creatinine [Mass/Vol] 0.83 mg/dL Normal 0.66-1.25 [facility] Comment on above: Performed By: #### T TERESITA, HSTROPN, CRP, CMP #### [facility] [address] [address] [address] Jarek Barrera EGFR-AF VINCENTIAN >60 Normal >=60 [facility] Comment on above: Performed By: #### T TERESITA, HSTROPN, CRP, CMP #### [facility] [address] [address] [address] Jarek Barrera EGFR-NON AF VINCENTIAN >60 Normal >=60 [facility] Comment on above: Performed By: #### T TERESITA, HSTROPN, CRP, CMP #### [facility] [address] [address] [address] Jarek Barrera Globulin (S) [Mass/Vol] 3.8 g/dL Normal [facility] Comment on above: Performed By: #### T TERESITA, HSTROPN, CRP, CMP #### [facility] [address] [address] [address] Jarek Barrera Glucose [Mass/Vol] 101 mg/dL Normal 74-106 [facility] Comment on above: Performed By: #### T TERESITA, HSTROPN, CRP, CMP #### [facility] [address] [address] [address] Jarek Barrera Potassium [Moles/Vol] 3.9 mmol/L Normal 3.4-5.0 [facility] Comment on above: Performed By: #### T TERESITA, HSTROPN, CRP, CMP #### [facility] [address] [address] [address] Jarek Barrera Protein [Mass/Vol] 5.7 g/dL Critically low 6.1-8.2 [facility] Comment on above: Performed By: #### T TERESITA, HSTROPN, CRP, CMP #### [facility] [address] [place] [address] Dr. Jarek Barrera Sodium [Moles/Vol] 146 mmol/L Critically high 137-145 [facility] Comment on above: Performed By: #### T TERESITA, HSTROPN, CRP, CMP #### [facility] [address] [place] [address] Dr. Jarek Barrera Urea nitrogen [Mass/Vol] 29.0 mg/dL Critically high 9.0-20.0 [facility] Comment on above: Performed By: #### T TERESITA, HSTROPN, CRP, CMP #### [facility] [address] [place] [address] Dr. Jarek Barrera Urea nitrogen/Creatinine [Mass ratio] 34.9 mg/mg Normal [facility] Comment on above: Performed By: #### T TERESITA, HSTROPN, CRP, CMP #### [facility] [address] [place] [address] Dr. Jarek Barrera CBC AUTO DIFFon 11-21-2021 BASO # 0.0 103/ul Normal 0.0-0.1 [facility] Comment on above: Performed By: #### T TERESITA, HSTROPN, CRP, CMP #### [facility] [address] [place] [address] Dr. Jarek Barrera Basophils/100 WBC (Bld) 0.2 % Normal 0.2-2.0 [facility] Comment on above: Performed By: #### T TERESITA, HSTROPN, CRP, CMP #### [facility] [address] [place] [address] Dr. Jarek Barrera EO # 0.0 103/ul Normal 0.0-0.7 [facility] Comment on above: Performed By: #### T TERESITA, HSTROPN, CRP, CMP #### [facility] [address] [place] [address] Dr. Jarek Barrera Eosinophils/100 WBC (Bld) 0.0 % Critically low 0.9-7.0 [facility] Comment on above: Performed By: #### T TERESITA, HSTROPN, CRP, CMP #### [facility] [address] [place] [address] Dr. Jarek Barrera Erythrocyte distribution width (RBC) [Ratio] 14.6 % Normal 11.0-15.0 [facility] Comment on above: Performed By: #### T TERESITA, HSTROPN, CRP, CMP #### [facility] [address] [place] [address] Dr. Jarek Barrera Hematocrit (Bld) [Volume fraction] 43.5 % Normal 42.0-54.0 [facility] Comment on above: Performed By: #### T TERESITA, HSTROPN, CRP, CMP #### [facility] [address] [place] [address] Dr. Jarek Barrera Hemoglobin (Bld) [Mass/Vol] 13.3 g/dL Critically low 14.0-18.0 [facility] Comment on above: Performed By: #### T TERESITA, HSTROPN, CRP, CMP #### [facility] [address] [place] [address] Dr. Jarek Barrera IG # 0.09 10e3/ul Critically high 0.00-0.03 [facility] Comment on above: Performed By: #### T TERESITA, HSTROPN, CRP, CMP #### [facility] [address] [place] [address] Dr. Jarek Barrera IG % 1.4 % Critically high 0.0-0.5 [facility] Comment on above: Performed By: #### T TERESITA, HSTROPN, CRP, CMP #### [facility] [address] [place] [address] Dr. Jarek Barrera LYMPH # 0.6 103/ul Critically low 1.2-3.8 [facility] Comment on above: Result Comment: man. dif. not rqd. cons. w/ man. dif. from 11/20/21 Performed By: #### T TERESITA, HSTROPN, CRP, CMP #### [facility] [address] [place] [address] Dr. Jarek Barrera Lymphocytes/100 WBC (Bld) 8.6 % Critically low 20.5-60.0 [facility] Comment on above: Performed By: #### T TERESITA, HSTROPN, CRP, CMP #### [facility] [address] [place] [address] Dr. Jarek Barrera MANUAL DIFF REQ NO Normal [facility] Comment on above: Performed By: #### T TERESITA, HSTROPN, CRP, CMP #### [facility] [address] [place] [address] Dr. Jarek Barrera MCH (RBC) [Entitic mass] 31.2 pg Normal 25.9-34.0 [facility] Comment on above: Performed By: #### T TERESITA, HSTROPN, CRP, CMP #### [facility] [address] [place] [address] Dr. Jarek Barrera MCHC (RBC) [Mass/Vol] 30.6 g/dL Normal 29.9-35.2 [facility] Comment on above: Performed By: #### T TERESITA, HSTROPN, CRP, CMP #### [facility] [address] [place] [address] Dr. Jarek Barrera MCV (RBC) [Entitic vol] 102.1 fL Critically high 80.0-94.0 [facility] Comment on above: Performed By: #### T TERESITA, HSTROPN, CRP, CMP #### [facility] [address] [place] [address] Dr. Jarek Barrera MONO # 0.4 103/ul Normal 0.3-0.8 [facility] Comment on above: Performed By: #### T TERESITA, HSTROPN, CRP, CMP #### [facility] [address] [place] [address] Dr. Jarek Barrera Monocytes/100 WBC (Bld) 6.6 % Normal 1.7-12.0 [facility] Comment on above: Performed By: #### T TERESITA, HSTROPN, CRP, CMP #### [facility] [address] [place] [address] Dr. Jarek Barrera NEUT # 5.4 103/ul Normal 1.4-6.5 [facility] Comment on above: Performed By: #### T TERESITA, HSTROPN, CRP, CMP #### [facility] [address] [place] [address] Dr. Jarek Barrera Neutrophils/100 WBC (Bld) 83.2 % Critically high 43.0-75.0 [facility] Comment on above: Performed By: #### T TERESITA, HSTROPN, CRP, CMP #### [facility] [address] [address] [address] Jarek Barrera Platelet mean volume (Bld) [Entitic vol] 11.4 fL Normal 9.5-13.5 [facility] Comment on above: Performed By: #### T TERESITA, HSTROPN, CRP, CMP #### [facility] [address] [address] [address] Jarek Barrera PLT 182 103/ul Normal 150-450 [facility] Comment on above: Performed By: #### T TERESITA, HSTROPN, CRP, CMP #### [facility] [address] [address] [address] Jarek Barrera RBC 4.26 106/ul Critically low 4.70-6.10 [facility] Comment on above: Performed By: #### T TERESITA, HSTROPN, CRP, CMP #### [facility] [address] [place], [place] [address] Dr. Jarek Barrera WBC 6.5 103/ul Normal 4.0-11.0 [facility] Comment on above: Performed By: #### T TERESITA, HSTROPN, CRP, CMP #### [facility] [address] [address] [address] Jarek Barrera ECHOCARDIO M/2D COMPLETEon 0 11-21-2021 ECHOCARDIO M/2D COMPLETE Patient: FER SANDOVAL Exam Date: 11/21/2021 : 1960 Gender:M Ordering : DR. MIKE ARMIJO . Admission #: [id number] Family : DR ORTIZ SINHA . Order #: [id number] CLICK HERE TO VIEW EXAM ECHOCARDIOGRAM REPORT [...] Area(A4C): 12.10 cm2 Left Atrium Systolic Volume(A4C): 34369 mm3 Mitral Valve MV E to A Ratio: 1.30 Deceleration [place]: 2650 mm/s2 Mitral Valve A-Wave Peak Velocity: [...] Reid M.D. on 11/21/2021 at 17:45 Normal [facility] MAGNESIUMon 11-21-2021 Magnesium [Mass/Vol] 2.6 mg/dL Critically high 1.6-2.3 [facility] Comment on above: Performed By: #### T TERESITA, HSTROPN, CRP, CMP #### [facility] [address] [place] [address] Dr. Jarek Barrera PROF 14(COMP METB)on 022 Albumin [Mass/Vol] 2.0 g/dL Critically low 3.5-5.0 [facility] Comment on above: Performed By: #### T TERESITA, HSTROPN, CRP, CMP #### [facility] [address] [address] [address] Jarek Barrera Albumin/Globulin [Mass ratio] 0.5 {ratio} [facility] Comment on above: Performed By: #### T TERESITA, HSTROPN, CRP, CMP #### [facility] [address] [address] [address] Jarek Barrera ALP [Catalytic activity/Vol] 60 U/L Normal 38-126 [facility] Comment on above: Performed By: #### T TERESITA, HSTROPN, CRP, CMP #### [facility] [address] [address] [address] Jarek Barrera ALT [Catalytic activity/Vol] 12 U/L Critically low 21-72 [facility] Comment on above: Performed By: #### T TERESITA, HSTROPN, CRP, CMP #### [facility] [address] [address] [address] Jarek Barrera Anion gap [Moles/Vol] 6.7 mmol/L Normal [facility] Comment on above: Performed By: #### T TERESITA, HSTROPN, CRP, CMP #### [facility] [address] [address] [address] Jarek Barrera AST [Catalytic activity/Vol] 10 U/L Critically low 17-59 [facility] Comment on above: Performed By: #### T TERESITA, HSTROPN, CRP, CMP #### [facility] [address] [address] [address] Jarek Barrera Bilirubin [Mass/Vol] 0.2 mg/dL Normal 0.2-1.3 [facility] Comment on above: Performed By: #### T TERESITA, HSTROPN, CRP, CMP #### [facility] [address] [address] [address] Jarek Barrera Calcium [Mass/Vol] 8.3 mg/dL Critically low 8.4-10.2 Th [facility] Comment on above: Performed By: #### T TERESITA, HSTROPN, CRP, CMP #### [facility] [address] [address] [address] Jarek Barrera Chloride [Moles/Vol] 117 mmol/L Critically high 98-107 [facility] Comment on above: Performed By: #### T TERESITA, HSTROPN, CRP, CMP #### [facility] [address] [address] [address] Jarek Barrera CO2 [Moles/Vol] 27.8 mmol/L Normal 22.0-30.0 The [facility] Comment on above: Performed By: #### T TERESITA, HSTROPN, CRP, CMP #### [facility] [address] [address] [address] Jarek Barrera Creatinine [Mass/Vol] 1.03 mg/dL Normal 0.66-1.25 [facility] Comment on above: Performed By: #### T TERESITA, HSTROPN, CRP, CMP #### [facility] [address] [place] [address] Dr. Jarek Barrera EGFR-AF VINCENTIAN >60 Normal >=60 The [facility] Comment on above: Performed By: #### T TERESITA, HSTROPN, CRP, CMP #### [facility] [address] [address] [address] Jarek Barrera EGFR-NON AF VINCENTIAN >60 Normal >=60 [facility] Comment on above: Performed By: #### T TERESITA, HSTROPN, CRP, CMP #### [facility] [address] [address] [address] Jarek Barrera Globulin (S) [Mass/Vol] 4.1 g/dL Normal [facility] Comment on above: Performed By: #### T TERESITA, HSTROPN, CRP, CMP #### [facility] [address] [address] [address] Jarek Barrera Glucose [Mass/Vol] 148 mg/dL Critically high 74-106 [facility] Comment on above: Performed By: #### T TERESITA, HSTROPN, CRP, CMP #### [facility] [address] [address] [address] Jarek Barrera Potassium [Moles/Vol] 3.5 mmol/L Normal 3.4-5.0 [facility] Comment on above: Performed By: #### T TERSEITA, HSTROPN, CRP, CMP #### [facility] [address] [address] [address] Jarek Barrera Protein [Mass/Vol] 6.1 g/dL Normal 6.1-8.2 [facility] Comment on above: Performed By: #### T TERESITA, HSTROPN, CRP, CMP #### [facility] [address] [address] [address] Jarek Barrera Sodium [Moles/Vol] 148 mmol/L Critically high 137-145 [facility] Comment on above: Performed By: #### T TERESITA, HSTROPN, CRP, CMP #### [facility] [address] [place] [address] Dr. Jarek Barrera Urea nitrogen [Mass/Vol] 32.0 mg/dL Critically high 9.0-20.0 [facility] Comment on above: Performed By: #### T TERESITA, HSTROPN, CRP, CMP #### [facility] [address] [place] [address] Dr. Jarek Barrera Urea nitrogen/Creatinine [Mass ratio] 31.1 mg/mg Normal [facility] Comment on above: Performed By: #### T TERESITA, HSTROPN, CRP, CMP #### [facility] [address] [place] [address] Dr. Jarek Barrera TSHon 11-21-2021 TSH 3.386 uIU/mL Normal 0.470-4.680 [facility] Comment on above: Performed By: #### T TERESITA, HSTROPN, CRP, CMP #### [facility] [address] [place] [address] Dr. Jarek Barrera TSH RANGE SEE BELOW Normal [facility] Comment on above: Result Comment: <0.3 4 UIU/ml HYPERTHYROID 0.34-5.60 UIU/ml EUTHYROID >5.60 UIU/ml HYPOTHYROID Performed By: #### T TERESITA, HSTROPN, CRP, CMP #### [facility] [address] [place] [address] Dr. Jarek Barrera CBC W MANUAL DIFFon 11-20-19 22 ATYPICAL LYMPH # Normal [facility] Comment on above: Performed By: #### T TERESITA, HSTROPN, CRP, CMP #### [facility] [address] [place] [address] Dr. Jarek Barrera ATYPICAL LYMPH % Normal [facility] Comment on above: Performed By: #### T TERESITA, HSTROPN, CRP, CMP #### [facility] [address] [place] [address] Dr. Jarek Barrera BAND # 0.1 103/ul Normal 0.0-0.3 [facility] Comment on above: Performed By: #### T TERESITA, HSTROPN, CRP, CMP #### [facility] [address] [place] [address] Dr. Jarek Barrera BAND % 2 % Normal 0-5 [facility] Comment on above: Performed By: #### T TERESITA, HSTROPN, CRP, CMP #### [facility] [address] [address] [address] Jarek Barrera BASOM # 0.07 103/ul Normal 0.00-0.10 [facility] Comment on above: Performed By: #### T TERESITA, HSTROPN, CRP, CMP #### [facility] [address] [address] [address] Jarek Barrera BASOM % 1.0 % Normal 0.2-2.0 [facility] Comment on above: Performed By: #### T TERESITA, HSTROPN, CRP, CMP #### [facility] [address] [address] [address] Jarek Barrera BLAST # Normal [facility] Comment on above: Performed By: #### T TERESITA, HSTROPN, CRP, CMP #### [facility] [address] [address] [address] Jarek Barrera BLAST % Normal [facility] Comment on above: Performed By: #### T TERESITA, HSTROPN, CRP, CMP #### [facility] [address] [address] [address] Jarek Barrera CORRECTED WBC Normal 4.0-11.0 [facility] Comment on above: Performed By: #### T TERESITA, HSTROPN, CRP, CMP #### [facility] [address] [address] [address] Jarek Barrera EOS # 0.00 103/ul Normal 0.00-0.70 [facility] Comment on above: Performed By: #### T TERESITA, HSTROPN, CRP, CMP #### [facility] [address] [address] [address] Jarek Barrera EOS% 0.0 % Critically low 0.9-7.0 [facility] Comment on above: Performed By: #### T TERESITA, HSTROPN, CRP, CMP #### [facility] [address] [address] [address] Jarek Barrera HCT 39.2 % Critically low 42.0-54.0 [facility] Comment on above: Performed By: #### T TERESITA, HSTROPN, CRP, CMP #### [facility] [address] [address] [address] Jarek Barrera HGB 12.2 g/dl Critically low 14.0-18.0 [facility] Comment on above: Performed By: #### T TERESITA, HSTROPN, CRP, CMP #### [facility] [address] [address] [address] Jarek Barrera LYMPHM # 0.70 103/ul Critically low 1.20-3.80 [facility] Comment on above: Performed By: #### T TERESITA, HSTROPN, CRP, CMP #### [facility] [address] [address] [address] Jarek Barrera LYMPHM% 10.0 % Critically low 20.5-60.0 [facility] Comment on above: Performed By: #### T TERESITA, HSTROPN, CRP, CMP #### [facility] [address] [address] [address] Jarek Barrera MCH 31.5 pg Normal 25.9-34.0 [facility] Comment on above: Performed By: #### T TERESITA, HSTROPN, CRP, CMP #### [facility] [address] [address] [address] Jarek Barrera MCHC 31.1 g/dl Normal 29.9-35.2 [facility] Comment on above: Performed By: #### T TERESITA, HSTROPN, CRP, CMP #### [facility] [address] [address] [address] Jarek Barrera MCV 101.3 fL Critically high 80.0-94.0 [facility] Comment on above: Performed By: #### T TERESITA, HSTROPN, CRP, CMP #### [facility] [address] [address] [address] Jarek Barrera METAMYELOCYTE # Normal [facility] Comment on above: Performed By: #### T TERESITA, HSTROPN, CRP, CMP #### [facility] [address] [address] [address] Jarek Barrera METAMYELOCYTE % Normal [facility] Comment on above: Performed By: #### T TERESITA, HSTROPN, CRP, CMP #### [facility] [address] [address] [address] Jarek Barrera MONOM# 0.14 103/ul Critically low 0.30-0.80 [facility] Comment on above: Performed By: #### T TERESITA, HSTROPN, CRP, CMP #### [facility] [address] [address] [address] Jarek Barrera MONOM% 2.0 % Normal 1.7-12.0 [facility] Comment on above: Performed By: #### T TERESITA, HSTROPN, CRP, CMP #### [facility] [address] [address] [address] Jarek Barrera MPV 11.5 fL Normal 9.5-13.5 [facility] Comment on above: Performed By: #### T TERESITA, HSTROPN, CRP, CMP #### [facility] [address] [address] [address] Jarek Barrera MYELOCYTE # Normal [facility] Comment on above: Performed By: #### T TERESITA, HSTROPN, CRP, CMP #### [facility] [address] [address] [address] Jarek Barrera MYELOCYTE % Normal [facility] Comment on above: Performed By: #### T TERESITA, HSTROPN, CRP, CMP #### [facility] [address] [address] [address] Jarek Barrera NRBC Normal [facility] Comment on above: Performed By: #### T TERESITA, HSTROPN, CRP, CMP #### [facility] [address] [address] [address] Jarek Barrera PLT 180 103/ul Normal 150-450 [facility] Comment on above: Performed By: #### T TERESITA, HSTROPN, CRP, CMP #### [facility] [address] [address] [address] Jarek Barrera RBC 3.87 106/ul Critically low 4.70-6.10 [facility] Comment on above: Performed By: #### T TERESITA, HSTROPN, CRP, CMP #### [facility] [address] [address] [address] Jarek Barrera RDW 14.6 % Normal 11.0-15.0 [facility] Comment on above: Performed By: #### T TERESITA, HSTROPN, CRP, CMP #### [facility] [address] [place] [address] Dr. Jarek Barrera SEG # 5.95 103/ul Normal 1.40-6.50 [facility] Comment on above: Performed By: #### T TERESITA, HSTROPN, CRP, CMP #### [facility] [address] [place] [address] Dr. Jarek Barrera SEG % 85.0 % Critically high 43.0-75.0 [facility] Comment on above: Performed By: #### T TERESITA, HSTROPN, CRP, CMP #### [facility] [address] [place] [address] Dr. Jarek Barrera WBC 7.0 103/ul Normal 4.0-11.0 [facility] Comment on above: Performed By: #### T TERESITA, HSTROPN, CRP, CMP #### [facility] [address] [place] [address] Dr. Jarek Barrera CRPon 11-20-2021 CRP 3.4 mg/dL Critically high <=1.0 [facility] Comment on above: Performed By: #### T TERESITA, HSTROPN, CRP, CMP #### [facility] [address] [place] [address] Dr. Jarek Barrera PROF 14(COMP METB)on 022 Albumin [Mass/Vol] 2.0 g/dL Critically low 3.5-5.0 Th [facility] Comment on above: Performed By: #### T TERESITA, HSTROPN, CRP, CMP #### [facility] [address] [address] [address] Jarek Barrera Albumin/Globulin [Mass ratio] 0.5 {ratio} Normal [facility] Comment on above: Performed By: #### T TERESITA, HSTROPN, CRP, CMP #### [facility] [address] [place] [address] Dr. Jarek Barrera ALP [Catalytic activity/Vol] 69 U/L Normal 38-126 [facility] Comment on above: Performed By: #### T TERESITA, HSTROPN, CRP, CMP #### [facility] [address] [place] [address] Dr. Jarek Barrera ALT [Catalytic activity/Vol] 12 U/L Critically low 21-72 [facility] Comment on above: Performed By: #### T TERESITA, HSTROPN, CRP, CMP #### [facility] [address] [place] [address] Dr. Jarek Barrera Anion gap [Moles/Vol] 8.8 mmol/L Normal [facility] Comment on above: Performed By: #### T TERESITA, HSTROPN, CRP, CMP #### [facility] [address] [place] [address] Dr. Jarek Barrera AST [Catalytic activity/Vol] 20 U/L Normal 17-59 [facility] Comment on above: Performed By: #### T TERESITA, HSTROPN, CRP, CMP #### [facility] [address] [address] [address] Jarek Barrera Bilirubin [Mass/Vol] 0.2 mg/dL Normal 0.2-1.3 [facility] Comment on above: Performed By: #### T TERESITA, HSTROPN, CRP, CMP #### [facility] [address] [place] [address] Dr. Jarek Barrera Calcium [Mass/Vol] 8.4 mg/dL Normal 8.4-10.2 [facility] Comment on above: Performed By: #### T TERESITA, HSTROPN, CRP, CMP #### [facility] [address] [address] [address] Jarek Barrera Chloride [Moles/Vol] 119 mmol/L Critically high 98-107 [facility] Comment on above: Performed By: #### T TERESITA, HSTROPN, CRP, CMP #### [facility] [address] [address] [address] Jarek Barrera CO2 [Moles/Vol] 26.6 mmol/L Normal 22.0-30.0 [facility] Comment on above: Performed By: #### T TERESITA, HSTROPN, CRP, CMP #### [facility] [address] [address] [address] Jarek Barrera Creatinine [Mass/Vol] 0.80 mg/dL Normal 0.66-1.25 [facility] Comment on above: Performed By: #### T TERESITA, HSTROPN, CRP, CMP #### [facility] [address] [place] [address] Dr. Jarek Barrera EGFR-AF VINCENTIAN >60 Normal >=60 [facility] Comment on above: Performed By: #### T TERESITA, HSTROPN, CRP, CMP #### [facility] [address] [place] [address] Dr. Jarek Barrera EGFR-NON AF VINCENTIAN >60 Normal >=60 [facility] Comment on above: Performed By: #### T TERESITA, HSTROPN, CRP, CMP #### [facility] [address] [address] [address] Jarek Barrera Globulin (S) [Mass/Vol] 4.4 g/dL Normal [facility] Comment on above: Performed By: #### T TERESITA, HSTROPN, CRP, CMP #### [facility] [address] [address] [address] Jarek Barrera Glucose [Mass/Vol] 166 mg/dL Critically high 74-106 [facility] Comment on above: Performed By: #### T TERESITA, HSTROPN, CRP, CMP #### [facility] [address] [place] [address] Dr. Jarek Barrera Potassium [Moles/Vol] 3.4 mmol/L Normal 3.4-5.0 [facility] Comment on above: Performed By: #### T TERESITA, HSTROPN, CRP, CMP #### [facility] [address] [place] [address] Dr. Jarek Barrera Protein [Mass/Vol] 6.4 g/dL Normal 6.1-8.2 [facility] Comment on above: Performed By: #### T TERESITA, HSTROPN, CRP, CMP #### [facility] [address] [address] [address] Jarek Barrera Sodium [Moles/Vol] 151 mmol/L Critically high 137-145 [facility] Comment on above: Performed By: #### T TERESITA, HSTROPN, CRP, CMP #### [facility] [address] [place] [address] Dr. Jarek Barrera Urea nitrogen [Mass/Vol] 33.0 mg/dL Critically high 9.0-20.0 [facility] Comment on above: Performed By: #### T TERESITA, HSTROPN, CRP, CMP #### [facility] [address] [address] [address] Jarek Barrera Urea nitrogen/Creatinine [Mass ratio] 41.2 mg/mg Normal [facility] Comment on above: Performed By: #### T TERESITA, HSTROPN, CRP, CMP #### [facility] [address] [place] [address] Dr. Jarek Barrera THEOPHYLLINEon 11-20-2021 THEOPHYLLINE 11.4 ug/mL Normal 8.0-20.0 [facility] Comment on above: Performed By: #### T TERESITA, HSTROPN, CRP, CMP #### [facility] [address] [place] [address] Dr. Jarek Barrera TROPONIN, HIGH SENSITIVITYon 11-20-2021 HSTROP 11.3 pg/mL Normal 4.0-42.2 [facility] Comment on above: Result Comment: CUT- OFF POINTS HAVE BEEN ESTABLISHED BASED ON THE FOURTH UNIVERSAL DEFINITIONS OF MYOCARDIAL INFARCTION. THE UPPER REFERENCE LIMIT (URL) OF TROPONIN, DEFINED THE 99TH PERCENTILE OF cTnI DISTRIBUTION IN A REFERENCE POPULATION, HAS BEEN CONFIRMED THE DECISION THRESHOLD FOR MS DIAGNOSIS. Performed By: #### T TERESITA, HSTROPN, CRP, CMP #### [facility] [address] [place] [address] Dr. Jarek Barrera CBC AUTO DIFFon 11-19-2021 BASO # 0.0 103/ul Normal 0.0-0.1 [facility] Comment on above: Performed By: #### T TERESITA, HSTROPN, CRP, CMP #### [facility] [address] [place] [address] Dr. Jarek Barrera Basophils/100 WBC (Bld) 0.2 % Normal 0.2-2.0 [facility] Comment on above: Performed By: #### T TERESITA, HSTROPN, CRP, CMP #### [facility] [address] [place] [address] Dr. Jarek Barrera EO # 0.0 103/ul Normal 0.0-0.7 [facility] Comment on above: Performed By: #### T TERESITA, HSTROPN, CRP, CMP #### [facility] [address] [place] [address] Dr. Jarek Barrera Eosinophils/100 WBC (Bld) 0.0 % Critically low 0.9-7.0 [facility] Comment on above: Performed By: #### T TERESITA, HSTROPN, CRP, CMP #### [facility] [address] [place] [address] Dr. Jarek Barrera Erythrocyte distribution width (RBC) [Ratio] 15.1 % Critically high 11.0-15.0 [facility] Comment on above: Performed By: #### T TERESITA, HSTROPN, CRP, CMP #### [facility] [address] [place] [address] Dr. Jarek Barrera Hematocrit (Bld) [Volume fraction] 42.3 % Normal 42.0-54.0 [facility] Comment on above: Performed By: #### T TERESITA, HSTROPN, CRP, CMP #### [facility] [address] [address] [address] Jarek Barrera Hemoglobin (Bld) [Mass/Vol] 12.7 g/dL Critically low 14.0-18.0 [facility] Comment on above: Result Comment: Flui ds given Performed By: #### T TERESITA, HSTROPN, CRP, CMP #### [facility] [address] [address] [address] Jarek Barrera IG # 0.05 10e3/ul Critically high 0.00-0.03 [facility] Comment on above: Performed By: #### T TERESITA, HSTROPN, CRP, CMP #### [facility] [address] [address] [address] Jarek Barrera IG % 0.6 % Critically high 0.0-0.5 [facility] Comment on above: Performed By: #### T TERESITA, HSTROPN, CRP, CMP #### [facility] [address] [place] [address] Dr. Jarek Barrera LYMPH # 0.5 103/ul Critically low 1.2-3.8 [facility] Comment on above: Performed By: #### T TERESITA, HSTROPN, CRP, CMP #### [facility] [address] [address] [address] Jarek Barrera Lymphocytes/100 WBC (Bld) 6.1 % Critically low 20.5-60.0 [facility] Comment on above: Performed By: #### T TERESITA, HSTROPN, CRP, CMP #### [facility] [address] [place] [address] Dr. Jaerk Barrera MANUAL DIFF REQ NO Normal [facility] Comment on above: Performed By: #### T TERESITA, HSTROPN, CRP, CMP #### [facility] [address] [place] [address] Dr. Jarek Barrera MCH (RBC) [Entitic mass] 32.0 pg Normal 25.9-34.0 [facility] Comment on above: Performed By: #### T TERESITA, HSTROPN, CRP, CMP #### [facility] [address] [place] [address] Dr. Jarek Barrera MCHC (RBC) [Mass/Vol] 30.0 g/dL Normal 29.9-35.2 [facility] Comment on above: Performed By: #### T ETRESITA, HSTROPN, CRP, CMP #### [facility] [address] [place] [address] Dr. Jarek Barrera MCV (RBC) [Entitic vol] 106.5 fL Critically high 80.0-94.0 [facility] Comment on above: Performed By: #### T TERESITA, HSTROPN, CRP, CMP #### [facility] [address] [place] [address] Dr. Jarek Barrera MONO # 0.1 103/ul Critically low 0.3-0.8 [facility] Comment on above: Performed By: #### T TERESITA, HSTROPN, CRP, CMP #### [facility] [address] [place] [address] Dr. Jarek Barrera Monocytes/100 WBC (Bld) 1.3 % Critically low 1.7-12.0 [facility] Comment on above: Performed By: #### T TERESITA, HSTROPN, CRP, CMP #### [facility] [address] [place] [address] Dr. Jarek Barrera NEUT # 7.6 103/ul Critically high 1.4-6.5 [facility] Comment on above: Performed By: #### T TERESITA, HSTROPN, CRP, CMP #### [facility] [address] [place] [address] Dr. Jarek Barrera Neutrophils/100 WBC (Bld) 91.8 % Critically high 43.0-75.0 [facility] Comment on above: Performed By: #### T TERESITA, HSTROPN, CRP, CMP #### [facility] [address] [place] [address] Dr. Jarek Barrera Platelet mean volume (Bld) [Entitic vol] 11.2 fL Normal 9.5-13.5 [facility] Comment on above: Performed By: #### T TERESITA, HSTROPN, CRP, CMP #### [facility] [address] [address] [address] Jarek Barrera PLT 177 103/ul Normal 150-450 [facility] Comment on above: Performed By: #### T TERESITA, HSTROPN, CRP, CMP #### [facility] [address] [address] [address] Jarek Barrera RBC 3.97 106/ul Critically low 4.70-6.10 [facility] Comment on above: Performed By: #### T TERESITA, HSTROPN, CRP, CMP #### [facility] [address] [address] [address] Jarek Barrera WBC 8.3 103/ul Normal 4.0-11.0 [facility] Comment on above: Performed By: #### T TERESITA, HSTROPN, CRP, CMP #### [facility] [address] [place] [address] Dr. Jarek Barrera CRPon 11-19-2021 CRP 7.5 mg/dL Critically high <=1.0 [facility] Comment on above: Performed By: #### P HVEN #### [facility] [address] [place] [address] Dr. Jarek Barrera PROF 14(COMP METB)on 022 Albumin [Mass/Vol] 2.1 g/dL Critically low 3.5-5.0 [facility] Comment on above: Performed By: #### C RP, HSTROPN, DALE, CMP #### [facility] [address] [place] [address] Dr. Jarek Barrera Albumin/Globulin [Mass ratio] 0.4 {ratio} Normal [facility] Comment on above: Performed By: #### C RP, HSTROPN, DALE, CMP #### [facility] [address] [place] [address] Dr. Jarek Barrera ALP [Catalytic activity/Vol] 71 U/L Normal 38-126 [facility] Comment on above: Performed By: #### C RP, HSTROPN, DALE, CMP #### [facility] [address] [place] [address] Dr. Jarek Barrera ALT [Catalytic activity/Vol] 13 U/L Critically low 21-72 [facility] Comment on above: Performed By: #### C ROMEL ROSE DALE, CMP #### [facility] [address] [place] [address] Dr. Jarek Barrera Anion gap [Moles/Vol] 13.2 mmol/L Normal [facility] Comment on above: Performed By: #### C ROMEL ROSE DALE, CMP #### [facility] [address] [place] [address] Dr. Jarek Barrera AST [Catalytic activity/Vol] 12 U/L Critically low 17-59 [facility] Comment on above: Performed By: #### C ROMEL ROSE DALE, CMP #### [facility] [address] [place] [address] Dr. Jarek Barrera Bilirubin [Mass/Vol] 0.3 mg/dL Normal 0.2-1.3 [facility] Comment on above: Performed By: #### C ROMEL ROSE DALE, CMP #### [facility] [address] [place] [address] Dr. Jarek Barrera Calcium [Mass/Vol] 8.7 mg/dL Normal 8.4-10.2 [facility] Comment on above: Performed By: #### C ROMEL ROSE DALE, CMP #### [facility] [address] [place] [address] Dr. Jarek Barrera Chloride [Moles/Vol] 117 mmol/L Critically high 98-107 [facility] Comment on above: Performed By: #### C ROMEL ROSE DALE, CMP #### [facility] [address] [place] [address] Dr. Jarek Barrera CO2 [Moles/Vol] 27.6 mmol/L Normal 22.0-30.0 [facility] Comment on above: Performed By: #### C ROMEL ROSE DALE, CMP #### [facility] [address] [place] [address] Dr. Jarek Barrera Creatinine [Mass/Vol] 1.06 mg/dL Normal 0.66-1.25 [facility] Comment on above: Performed By: #### C RP, ROMEL DALE, CMP #### [facility] [address] [place] [address] Dr. Jarke Barrera EGFR-AF VINCENTIAN >60 Normal >=60 [facility] Comment on above: Performed By: #### C RP, HSTRBRYAN DALE, CMP #### [facility] [address] [place] [address] Dr. Jarek Barrera EGFR-NON AF VINCENTIAN >60 Normal >=60 [facility] Comment on above: Performed By: #### C RP, ROMEL DALE, CMP #### [facility] [address] [place] [address] Dr. Jarek Barrera Globulin (S) [Mass/Vol] 5.0 g/dL Normal [facility] Comment on above: Performed By: #### C RPROMEL DALE, CMP #### [facility] [address] [place] [address] Dr. Jarek Barrera Glucose [Mass/Vol] 161 mg/dL Critically high 74-106 [facility] Comment on above: Performed By: #### C RP, ROMEL DALE, CMP #### [facility] [address] [place] [address] Dr. Jarek Barrera Potassium [Moles/Vol] 3.8 mmol/L Normal 3.4-5.0 [facility] Comment on above: Performed By: #### C RP, HSTRBRYAN DALE, CMP #### [facility] [address] [place] [address] Dr. Jarek Barrera Protein [Mass/Vol] 7.1 g/dL Normal 6.1-8.2 [facility] Comment on above: Performed By: #### C RP, HSTRBRYAN DALE, CMP #### [facility] [address] [place] [address] Dr. Jarek Barrera Sodium [Moles/Vol] 154 mmol/L Critically high 137-145 [facility] Comment on above: Performed By: #### C RPROMEL THEO, CMP #### [facility] [address] [place] [address] Dr. Jarek Barrera Urea nitrogen [Mass/Vol] 30.0 mg/dL Critically high 9.0-20.0 [facility] Comment on above: Performed By: #### C RP, HSTRDALE ADAMS, CMP #### [facility] [address] [place] [address] Dr. Jarek Barrera Urea nitrogen/Creatinine [Mass ratio] 28.3 mg/mg Normal [facility] Comment on above: Performed By: #### C RPROMEL THEO, CMP #### [facility] [address] [place] [address] Dr. Jarek Barrera THEOPHYLLINEon 11-19-2021 THEOPHYLLINE 0.4 ug/mL Critically low 8.0-20.0 [facility] Comment on above: Performed By: #### P HVEN #### [facility] [address] [place] [address] Dr. Jarek Barrera TROPONIN, HIGH SENSITIVITYon 11-19-2021 HSTROP 13.5 pg/mL Normal 4.0-42.2 [facility] Comment on above: Result Comment: CUT- OFF POINTS HAVE BEEN ESTABLISHED BASED ON THE FOURTH UNIVERSAL DEFINITIONS OF MYOCARDIAL INFARCTION. THE UPPER REFERENCE LIMIT (URL) OF TROPONIN, DEFINED THE 99TH PERCENTILE OF cTnI DISTRIBUTION IN A REFERENCE POPULATION, HAS BEEN CONFIRMED THE DECISION THRESHOLD FOR MS DIAGNOSIS. Performed By: #### P HVEN #### [facility] [address] [place] [address] Dr. Jarek Barrera BNPon 11-18-2021 Natriuretic peptide B (Bld) [Mass/Vol] 172.0 pg/mL Normal <=900.0 [facility] Comment on above: Performed By: #### P HVEN #### [facility] [address] [place] [address] Dr. Jarek Barrera CBC AUTO DIFFon 11-18-2021 BASO # 0.1 103/ul Normal 0.0-0.1 [facility] Comment on above: Performed By: #### T TERESITA, HSTROPN, CRP, CMP #### [facility] [address] [place] [address] Dr. Jarek Barrera Basophils/100 WBC (Bld) 0.6 % Normal 0.2-2.0 [facility] Comment on above: Performed By: #### T TERESITA, HSTROPN, CRP, CMP #### [facility] [address] [place] [address] Dr. Jarek Barrera EO # 0.1 103/ul Normal 0.0-0.7 [facility] Comment on above: Performed By: #### T TERESITA, HSTROPN, CRP, CMP #### [facility] [address] [place] [address] Dr. Jarek Barrera Eosinophils/100 WBC (Bld) 0.6 % Critically low 0.9-7.0 [facility] Comment on above: Performed By: #### T TERESITA, HSTROPN, CRP, CMP #### [facility] [address] [place] [address] Dr. Jarek Barrera Erythrocyte distribution width (RBC) [Ratio] 15.8 % Critically high 11.0-15.0 [facility] Comment on above: Performed By: #### T TERESITA, HSTROPN, CRP, CMP #### [facility] [address] [place] [address] Dr. Jarek Barrera Hematocrit (Bld) [Volume fraction] 45.9 % Normal 42.0-54.0 [facility] Comment on above: Performed By: #### T TERESITA, HSTROPN, CRP, CMP #### [facility] [address] [place] [address] Dr. Jarek Barrera Hemoglobin (Bld) [Mass/Vol] 14.1 g/dL Normal 14.0-18.0 [facility] Comment on above: Performed By: #### T TERESITA, HSTROPN, CRP, CMP #### [facility] [address] [place] [address] Dr. Jarek Barrera IG # 0.09 10e3/ul Critically high 0.00-0.03 [facility] Comment on above: Performed By: #### T TERESITA, HSTROPN, CRP, CMP #### [facility] [address] [address] [address] Jarek Barrera IG % 0.6 % Critically high 0.0-0.5 [facility] Comment on above: Performed By: #### T TERESITA, HSTROPN, CRP, CMP #### [facility] [address] [place] [address] Dr. Jarek Barrera LYMPH # 0.8 103/ul Critically low 1.2-3.8 [facility] Comment on above: Performed By: #### T TERESITA, HSTROPN, CRP, CMP #### [facility] [address] [place] [address] Dr. Jarek Barrera Lymphocytes/100 WBC (Bld) 5.4 % Critically low 20.5-60.0 [facility] Comment on above: Performed By: #### T TERESITA, HSTROPN, CRP, CMP #### [facility] [address] [place] [address] Dr. Jarek Barrrea MANUAL DIFF REQ NO Normal [facility] Comment on above: Performed By: #### T TERESITA, HSTROPN, CRP, CMP #### [facility] [address] [place] [address] Dr. Jarek Barrera MCH (RBC) [Entitic mass] 31.8 pg Normal 25.9-34.0 [facility] Comment on above: Performed By: #### T TERESITA, HSTROPN, CRP, CMP #### [facility] [address] [place] [address] Dr. Jarek Barrera MCHC (RBC) [Mass/Vol] 30.7 g/dL Normal 29.9-35.2 [facility] Comment on above: Performed By: #### T TERESITA, HSTROPN, CRP, CMP #### [facility] [address] [address] [address] Jarek Barrera MCV (RBC) [Entitic vol] 103.6 fL Critically high 80.0-94.0 [facility] Comment on above: Performed By: #### T TERESITA, HSTROPN, CRP, CMP #### [facility] [address] [address] [address] Jarek Barrera MONO # 0.9 103/ul Critically high 0.3-0.8 [facility] Comment on above: Performed By: #### T TERESITA, HSTROPN, CRP, CMP #### [facility] [address] [place] [address] Dr. Jarek Barrera Monocytes/100 WBC (Bld) 5.8 % Normal 1.7-12.0 [facility] Comment on above: Performed By: #### T TERESITA, HSTROPN, CRP, CMP #### [facility] [address] [place] [address] Dr. Jarek Barrera NEUT # 13.4 103/ul Critically high 1.4-6.5 [facility] Comment on above: Performed By: #### T TERESITA, HSTROPN, CRP, CMP #### [facility] [address] [place] [address] Dr. Jarek Barrera Neutrophils/100 WBC (Bld) 87.0 % Critically high 43.0-75.0 [facility] Comment on above: Performed By: #### T TERESITA, HSTROPN, CRP, CMP #### [facility] [address] [place] [address] Dr. Jarek Barrera Platelet mean volume (Bld) [Entitic vol] 11.4 fL Normal 9.5-13.5 [facility] Comment on above: Performed By: #### T TERESITA, HSTROPN, CRP, CMP #### [facility] [address] [place] [address] Dr. Jarek Barrera PLT 201 103/ul Normal 150-450 [facility] Comment on above: Performed By: #### T TERESITA, HSTROPN, CRP, CMP #### [facility] [address] [address] [address] Jarek Barrera RBC 4.43 106/ul Critically low 4.70-6.10 [facility] Comment on above: Performed By: #### T TERESITA, HSTROPN, CRP, CMP #### [facility] [address] [address] [address] Jarek Barrera WBC 15.4 103/ul Critically high 4.0-11.0 [facility] Comment on above: Performed By: #### T TERESITA, HSTROPN, CRP, CMP #### [facility] [address] [address] [address] Jarek Barrera CULTURE BLOODon 11-18-2021 Microscopic examination of blood, culture Culture Observations: NO GROWTH AT 5 DAYS. Normal [facility] Comment on above: Performed By: #### P HVEN #### [facility] [address] [place] [address] Dr. Jarek Barrera Performed By: #### T TERESITA, HSTROPN, CRP, CMP #### [facility] [address] [address] [address] Jarek Barrera Covid-19 PCR (CVDTBH)on 11-07 SARS-CoV-2 (COVID-19) RNA AMELIE+probe Ql (Unsp spec) Detected Critically abnormal NOT DETECTED [facility] Comment on above: Result Comment: This test is not yet approved or cleared by the [place] Food and Drug Administration (FDA). This test was developed by [employer], [place], [place]. The performance characteristics of this test were validated by [facility]. The results are not intended to be used as the sole means for clinical diagnosis or patient management decisions. [facility] is authorized under Clinical Laboratory Improvement Amendments [...] for this test is supported by the [place] of Health and Human Service's declaration that [...] #### T TERESITA HSTROPN, CRP, CMP #### [facility] [address] [place] [address] Dr. Jarek Barrera LACTATE/LACTIC ACIDon 2021 Lactate [Moles/Vol] 1.5 mmol/L Normal 0.7-2.0 [facility] Comment on above: Performed By: #### P HVEN #### [facility] [address] [place] [address] Dr. Jarek Barrera Lactate [Moles/Vol] 1.6 mmol/L Normal 0.7-2.0 [facility] Comment on above: Performed By: #### T MERCY LOTRESAUN, CRP, CMP #### [facility] [address] [place] [address] Dr. Jarek Barrera PH VENOUS BLOODon 11-18-2021 PCO2 VENOUS 42.2 mmHg Normal 40.0-52.0 [facility] Comment on above: Performed By: #### P HVEN #### [facility] [address] [place] [address] Dr. Jarek Barrera pH VENOUS 7.492 Critically high 7.330-7.430 [facility] Comment on above: Performed By: #### P HVEN #### [facility] [address] [place] [address] Dr. Jarek Barrera PROF 14(COMP METB)on 022 Albumin [Mass/Vol] 2.3 g/dL Critically low 3.5-5.0 [facility] Comment on above: Performed By: #### P HVEN #### [facility] [address] [place] [address] Dr. Jarek Barrera Albumin/Globulin [Mass ratio] 0.4 {ratio} Normal [facility] Comment on above: Performed By: #### P HVEN #### [facility] [address] [address] [address] Jarek Barrera ALP [Catalytic activity/Vol] 76 U/L Normal 38-126 [facility] Comment on above: Performed By: #### P HVEN #### [facility] [address] [address] [address] Jarek Barrera ALT [Catalytic activity/Vol] 16 U/L Critically low 21-72 [facility] Comment on above: Performed By: #### P HVEN #### [facility] [address] [address] [address] Jarek Barrera Anion gap [Moles/Vol] 11.7 mmol/L Normal [facility] Comment on above: Performed By: #### P HVEN #### [facility] [address] [address] [address] Jarek Barrera AST [Catalytic activity/Vol] 20 U/L Normal 17-59 [facility] Comment on above: Performed By: #### P HVEN #### [facility] [address] [address] [address] Jarek Barrera Bilirubin [Mass/Vol] 0.5 mg/dL Normal 0.2-1.3 [facility] Comment on above: Performed By: #### P HVEN #### [facility] [address] [address] [address] Jarek Barrera Calcium [Mass/Vol] 8.8 mg/dL Normal 8.4-10.2 [facility] Comment on above: Performed By: #### P HVEN #### [facility] [address] [address] [address] Jarek Barrera Chloride [Moles/Vol] 114 mmol/L Critically high 98-107 [facility] Comment on above: Performed By: #### P HVEN #### [facility] [address] [address] [address] Jarek Barrera CO2 [Moles/Vol] 30.3 mmol/L Critically high 22.0-30.0 [facility] Comment on above: Performed By: #### P HVEN #### [facility] [address] [address] [address] Jarek Barrera Creatinine [Mass/Vol] 1.17 mg/dL Normal 0.66-1.25 [facility] Comment on above: Performed By: #### P HVEN #### [facility] [address] [address] [address] Jarek Barrera EGFR-AF VINCENTIAN >60 Normal >=60 [facility] Comment on above: Performed By: #### P HVEN #### [facility] [address] [address] [address] Jarek Barrera EGFR-NON AF VINCENTIAN >60 Normal >=60 [facility] Comment on above: Performed By: #### P HVEN #### [facility] [address] [address] [address] Jarek Barrera Globulin (S) [Mass/Vol] 5.3 g/dL Normal [facility] Comment on above: Performed By: #### P HVEN #### [facility] [address] [address] [address] Jarek Barrera Glucose [Mass/Vol] 128 mg/dL Critically high 74-106 [facility] Comment on above: Performed By: #### P HVEN #### [facility] [address] [place] [address] Dr. Jarek Barrera Potassium [Moles/Vol] 4.0 mmol/L Normal 3.4-5.0 [facility] Comment on above: Result Comment: SPEC IMEN SLIGHTLY HEMOLYZED MAY AFFECT K+ Performed By: #### P HVEN #### [facility] [address] [place] [address] Dr. Jarek Barrera Protein [Mass/Vol] 7.6 g/dL Normal 6.1-8.2 [facility] Comment on above: Performed By: #### P HVEN #### [facility] [address] [place] [address] Dr. Jarek Barrera Sodium [Moles/Vol] 152 mmol/L Critically high 137-145 [facility] Comment on above: Performed By: #### P HVEN #### [facility] [address] [place] [address] Dr. Jarek Barrera Urea nitrogen [Mass/Vol] 26.0 mg/dL Critically high 9.0-20.0 [facility] Comment on above: Performed By: #### P HVEN #### [facility] [address] [place] [address] Dr. Jarek Barrera Urea nitrogen/Creatinine [Mass ratio] 22.2 mg/mg Normal [facility] Comment on above: Performed By: #### P HVEN #### [facility] [address] [place] [address] Dr. Jarek Barrera PROTIMEon 11-18-2021 INR Coag (PPP) [Relative time] 1.17 {INR} Normal [facility] Comment on above: Performed By: #### P T #### [facility] [address] [place] [address] Dr. Jarek Barrera INR GUIDELINES SEE BELOW Normal [facility] Comment on above: Result Comment: AFTAB RED INR: 2.0 - 3.0 CONDITIONS NOT LISTED BELOW 2.5 - 3.5 FOR PROSTHETIC HEART VALVE REPLACEMENT 2.5 - 3.5 RECURRENT THROMBOSIS Performed By: #### P T #### [facility] [address] [place] [address] Dr. Jarek Barrera PT Coag (PPP) [Time] 12.5 s Critically high 9.0-11.6 [facility] Comment on above: Performed By: #### P T #### [facility] [address] [place] [address] Dr. Jarek Barrera TROPONIN, HIGH SENSITIVITYon 11-18-2021 HSTROP 13.6 pg/mL Normal 4.0-42.2 [facility] Comment on above: Result Comment: CUT- OFF POINTS HAVE BEEN ESTABLISHED BASED ON THE FOURTH UNIVERSAL DEFINITIONS OF MYOCARDIAL INFARCTION. THE UPPER REFERENCE LIMIT (URL) OF TROPONIN, DEFINED THE 99TH PERCENTILE OF cTnI DISTRIBUTION IN A REFERENCE POPULATION, HAS BEEN CONFIRMED THE DECISION THRESHOLD FOR MS DIAGNOSIS. Performed By: #### P HVEN #### [facility] [address] [place] [address] Dr. Jarek Barrera XR CHEST 1 Von [...] by: KIANNA DONATO Date: 2021-11-18 09:49 Normal [facility] CT CERVICAL SPINE WO CONTRAS Ton 08-10-2021 [...] Sam Ramos MD 08/10/21 Final result Normal [facility] CT CERVICAL SPINE WO CONTRAS TOrdered By: Nemesio Rios on 08-10-2021 Multilevel degenerat e change. Negative acute fracture traumatic malalignment [facility]: EXAM[facility]ATION: CT OF THE CERVICAL [...] thyroid ultrasound this may change patient management. [employer] Phone: [place], [facility] Incoming Radiant Results From [employer] - 08/10/2021 6:31 PM EDT EXAMINATION: CT [...] degenerate change. Negative acute fracture traumatic malalignment [employer] Phone: [employer] Phone: CT HEAD WO CONTRASTon 2020 CT [...] Sam Ramos MD 08/10/21 Final result Normal [facility] CT Head WO ContrastOrdered B y: Nemesio Rios on 08-10-2021 No acute intracrania l abnormality. Chronic microvascular disease and involutional changes Bilateral mastoid and middle ear cavity opacifications. Questions could represent chronic otomastoiditis. Posterior changes status post left-sided mastoidectomy. [facility] Work Phone: EXAMINATION: CT OF THE HEAD [...] of the visualized skull or soft tissues. [employer] Phone: [place], pn Incoming Radiant Results From [employer] - 08/10/2021 6:26 PM EDT EXAMINATION: CT [...] otomastoiditis. Posterior changes status post left-sided mastoidectomy. [employer] Phone: [employer] Phone: XR HAND RIGHT (MIN 3 VIEWS)o [...] Juan Huggins DO 08/10/21 Final result Normal [facility] XR HAND RIGHT (MIN 3 VIEWS)O rdered By: Kian Suarez on 08-10-2021 Nonspecific dorsal soft tissue edema. No acute fracture demonstrated. [employer] Phone: EXAMINATION: THREE XRAY VIEWS OF THE RIGHT HAND 08/10/2021 3:49 pm COMPARISON: None. HISTORY: ORDERING SYSTEM PROVIDED HISTORY: pain TECHNOLOGIST PROVIDED HISTORY: pain FINDINGS: Three views obtained. Fingers are flexed with overall position limiting evaluation. No acute fracture demonstrated. There is diffuse nonspecific soft tissue edema along the dorsal aspect of the hand without gas collection or radiopaque foreign body. [facility] Phone: [place], [facility] Incoming Radiant Results From [employer] - 08/10/2021 3:58 PM EDT EXAMINATION: THREE [...] soft tissue edema. No acute fracture demonstrated. [employer] Phone: [facility] Phone: OPERATIVE REPORTon OPERATIVE REPORT [address] [id number] OPERATIVE REPORT PATIENT NAME: FER SANDOVAL : 1960 MED REC NO: [id number] ROOM: ACCOUNT NO: [id number] ADMIT DATE: 07/13/2021 PROVIDER: Can Giordano DPM DATE OF PROCEDURE: 07/13/2021 SURGEON: Can Giordano DPM. PLANT BUYER: [employer]. PREOPERATIVE DIAGNOSES: Left foot hallux distal [...] all correct. CAN GIORDANO DPM [id number] Doc#: [id number] CC: [facility] Surgical Pathologyon Surgical Pathology (NOTE) -- [...] SURGICAL PATHOLOGY CONSULTATION Patient Name: FER SANDOVAL [facility] Rec: [id number] Path Number: [id number] [facility] ANATOMIC PATHOLOGY [address] [place] [address]. [place], [place] [address] Normal [facility] Comment on above: Performed By: #### B CUL2 #### [facility] [address] [place] [address] [employer] Advisor: Mode Culver MD CBC AUTO DIFFon 05-16-2021 BASO # 0.1 103/ul Normal 0.0-0.1 [facility] Comment on above: Performed By: #### T TERESITA, HSTROPN, CRP, CMP #### [facility] [address] [address] [address] Jarek Barrera Basophils/100 WBC (Bld) 0.7 % Normal 0.2-2.0 [facility] Comment on above: Performed By: #### T TERESITA, HSTROPN, CRP, CMP #### [facility] [address] [address] [address] Jarek Barrera EO # 0.1 103/ul Normal 0.0-0.7 [facility] Comment on above: Performed By: #### T TERESITA, HSTROPN, CRP, CMP #### [facility] [address] [address] [address] Jarek Barrera Eosinophils/100 WBC (Bld) 0.7 % Critically low 0.9-7.0 [facility] Comment on above: Performed By: #### T TERESITA, HSTROPN, CRP, CMP #### [facility] [address] [address] [address] Jarek Barrera Erythrocyte distribution width (RBC) [Ratio] 12.8 % Normal 11.0-15.0 [facility] Comment on above: Performed By: #### T TERESITA, HSTROPN, CRP, CMP #### [facility] [address] [address] [address] Jarek Barrera Hematocrit (Bld) [Volume fraction] 49.0 % Normal 42.0-54.0 [facility] Comment on above: Performed By: #### T TERESITA, HSTROPN, CRP, CMP #### [facility] [address] [place] [address] Dr. Jarek Barrera Hemoglobin (Bld) [Mass/Vol] 16.3 g/dL Normal 14.0-18.0 [facility] Comment on above: Performed By: #### T TERESITA, HSTROPN, CRP, CMP #### [facility] [address] [place] [address] Dr. Jarek Barrera IG # 0.03 10e3/ul Normal 0.00-0.03 [facility] Comment on above: Performed By: #### T TERESITA, HSTROPN, CRP, CMP #### [facility] [address] [place] [address] Dr. Jarek Barrera IG % 0.3 % Normal 0.0-0.5 [facility] Comment on above: Performed By: #### T TERESITA, HSTROPN, CRP, CMP #### [facility] [address] [place] [address] Dr. Jarek Barrera LYMPH # 1.1 103/ul Critically low 1.2-3.8 [facility] Comment on above: Performed By: #### T TERESITA, HSTROPN, CRP, CMP #### [facility] [address] [place] [address] Dr. Jarek Barrera Lymphocytes/100 WBC (Bld) 9.9 % Critically low 20.5-60.0 [facility] Comment on above: Performed By: #### T TERESITA, HSTROPN, CRP, CMP #### [facility] [address] [address] [address] Jarek Barrera MANUAL DIFF REQ NO Normal [facility] Comment on above: Performed By: #### T TERESITA, HSTROPN, CRP, CMP #### [facility] [address] [address] [address] Jarek Barrera MCH (RBC) [Entitic mass] 32.9 pg Normal 25.9-34.0 [facility] Comment on above: Performed By: #### T TERESITA, HSTROPN, CRP, CMP #### [facility] [address] [address] [address] Jarek Barrera MCHC (RBC) [Mass/Vol] 33.3 g/dL Normal 29.9-35.2 [facility] Comment on above: Performed By: #### T TERESITA, HSTROPN, CRP, CMP #### [facility] [address] [address] [address] Jarek Barrera MCV (RBC) [Entitic vol] 98.8 fL Critically high 80.0-94.0 [facility] Comment on above: Performed By: #### T TERESITA, HSTROPN, CRP, CMP #### [facility] [address] [address] [address] Jarek Barrera MONO # 1.0 103/ul Critically high 0.3-0.8 [facility] Comment on above: Performed By: #### T TERESITA, HSTROPN, CRP, CMP #### [facility] [address] [address] [address] Jarek Barrera Monocytes/100 WBC (Bld) 8.5 % Normal 1.7-12.0 [facility] Comment on above: Performed By: #### T TERESITA, HSTROPN, CRP, CMP #### [facility] [address] [place] [address] Dr. Jarek Barrera NEUT # 9.0 103/ul Critically high 1.4-6.5 [facility] Comment on above: Performed By: #### T TERESITA, HSTROPN, CRP, CMP #### [facility] [address] [address] [address] Jarek Barrera Neutrophils/100 WBC (Bld) 79.9 % Critically high 43.0-75.0 [facility] Comment on above: Performed By: #### T TERESITA, HSTROPN, CRP, CMP #### [facility] [address] [address] [address] Jarek Barrera Platelet mean volume (Bld) [Entitic vol] 9.8 fL Normal 9.5-13.5 [facility] Comment on above: Performed By: #### T TERESITA, HSTROPN, CRP, CMP #### [facility] [address] [address] [address] Jarek Barrera PLT 226 103/ul Normal 150-450 [facility] Comment on above: Performed By: #### T TERESITA, HSTROPN, CRP, CMP #### [facility] [address] [place] [address] Dr. Jarek Barrera RBC 4.96 106/ul Normal 4.70-6.10 [facility] Comment on above: Performed By: #### T TERESITA, HSTROPN, CRP, CMP #### [facility] [address] [place] [address] Dr. Jarek Barrera WBC 11.3 103/ul Critically high 4.0-11.0 [facility] Comment on above: Performed By: #### T TERESITA, HSTROPN, CRP, CMP #### [facility] [address] [place] [address] Dr. Jarek Barrera LIPID PROFILEon 05-16-2021 CHOL-HDL RATIO NORM SEE BELOW Normal [facility] Comment on above: Result Comment: 3.3 - 4.4 LOW RISK 4.4 - 7.1 AVERAGE RISK 7.1 - 11.0 MODERATE RISK >11.0 HIGH RISK Performed By: #### T TERESITA, HSTROPN, CRP, CMP #### [facility] [address] [place] [address] Dr. Jarek Barrera Cholesterol [Mass/Vol] 153 mg/dL Normal <=200 [facility] Comment on above: Performed By: #### T TERESITA, HSTROPN, CRP, CMP #### [facility] [address] [address] [address] Jarek Barrera Cholesterol in HDL [Mass/Vol] 55 mg/dL Normal [facility] Comment on above: Performed By: #### T TERESITA, HSTROPN, CRP, CMP #### [facility] [address] [address] [address] Jarek Barrera Cholesterol in LDL [Mass/Vol] 75.6 mg/dL Normal [facility] Comment on above: Performed By: #### T TERESITA, HSTROPN, CRP, CMP #### [facility] [address] [address] [address] Jarek Barrera Cholesterol.total/C holesterol in HDL [Mass ratio] 2.8 {ratio} Normal [facility] Comment on above: Performed By: #### T TERESITA, HSTROPN, CRP, CMP #### [facility] [address] [address] [address] Jarek Barrera HDL NORMAL > or = 60 mg/dl - LO W CARDIOVASCULAR RISK <40 mg/dl - HIGH CARDIOVASCULAR RISK Normal [facility] Comment on above: Performed By: #### T TERESITA, HSTROPN, CRP, CMP #### [facility] [address] [address] [address] Jarek Barrera LDL CALC NORMAL SEE BELOW Normal [facility] Comment on above: Result Comment: <100 mg/dl OPTIMAL 100 - 129 mg/dl NEAR OR ABOVE OPTIMAL 130 - 159 mg/dl BORDERLINE HIGH 160 - 189 mg/dl HIGH >190 mg/dl VERY HIGH Performed By: #### T TERESITA, HSTROPN, CRP, CMP #### [facility] [address] [address] [address] Jarek Barrera Triglyceride [Mass/Vol] 112 mg/dL Normal <=150 [facility] Comment on above: Performed By: #### T TERESITA, HSTROPN, CRP, CMP #### [facility] [address] [place] [address] Dr. Jarek Barrera VLDL CALC 22.4 mg/dL Normal [facility] Comment on above: Performed By: #### T TERESITA, HSTROPN, CRP, CMP #### [facility] [address] [place] [address] Dr. Jarek Barrera PROF 14(COMP METB)on 021 Albumin [Mass/Vol] 3.0 g/dL Critically low 3.5-5.0 [facility] Comment on above: Performed By: #### T TERESITA, HSTROPN, CRP, CMP #### [facility] [address] [address] [address] Jarek Barrera Albumin/Globulin [Mass ratio] 0.7 {ratio} Normal [facility] Comment on above: Performed By: #### T TERESITA, HSTROPN, CRP, CMP #### [facility] [address] [place] [address] Dr. Jarek Barrera ALP [Catalytic activity/Vol] 78 U/L Normal 38-126 [facility] Comment on above: Performed By: #### T TERESITA, HSTROPN, CRP, CMP #### [facility] [address] [address] [address] Jarek Barrera ALT [Catalytic activity/Vol] 26 U/L Normal 21-72 [facility] Comment on above: Performed By: #### T TERESITA, HSTROPN, CRP, CMP #### [facility] [address] [address] [address] Jarek Barrera Anion gap [Moles/Vol] 9.1 mmol/L Normal [facility] Comment on above: Performed By: #### T TERESITA, HSTROPN, CRP, CMP #### [facility] [address] [place] [address] Dr. Jarek Barrera AST [Catalytic activity/Vol] 26 U/L Normal 17-59 [facility] Comment on above: Performed By: #### T TERESITA, HSTROPN, CRP, CMP #### [facility] [address] [place] [address] Dr. Jarek Barrera Bilirubin [Mass/Vol] 0.4 mg/dL Normal 0.2-1.3 [facility] Comment on above: Performed By: #### T TERESITA, HSTROPN, CRP, CMP #### [facility] [address] [place] [address] Dr. Jarek Barrera Calcium [Mass/Vol] 9.1 mg/dL Normal 8.4-10.2 [facility] Comment on above: Performed By: #### T TERESITA, HSTROPN, CRP, CMP #### [facility] [address] [address] [address] Jarek Barrera Chloride [Moles/Vol] 101 mmol/L Normal 98-107 [facility] Comment on above: Performed By: #### T TERESITA, HSTROPN, CRP, CMP #### [facility] [address] [place] [address] Dr. Jarek Barrera CO2 [Moles/Vol] 33.4 mmol/L Critically high 22.0-30.0 [facility] Comment on above: Performed By: #### T TERESITA, HSTROPN, CRP, CMP #### [facility] [address] [place] [address] Dr. Jarek Barrera Creatinine [Mass/Vol] 1.06 mg/dL Normal 0.66-1.25 [facility] Comment on above: Performed By: #### T TERESITA, HSTROPN, CRP, CMP #### [facility] [address] [place] [address] Dr. Jarek Barrera EGFR-AF VINCENTIAN >60 Normal >=60 [facility] Comment on above: Performed By: #### T TERESITA, HSTROPN, CRP, CMP #### [facility] [address] [place] [address] Dr. Jarek Barrera EGFR-NON AF VINCENTIAN >60 Normal >=60 [facility] Comment on above: Performed By: #### T TERESITA, HSTROPN, CRP, CMP #### [facility] [address] [place] [address] Dr. Jarek Barrera Globulin (S) [Mass/Vol] 4.3 g/dL Normal [facility] Comment on above: Performed By: #### T TERESITA, HSTROPN, CRP, CMP #### [facility] [address] [address] [address] Jarek Barrera Glucose [Mass/Vol] 141 mg/dL Critically high 74-106 [facility] Comment on above: Performed By: #### T TERESITA, HSTROPN, CRP, CMP #### [facility] [address] [address] [address] Jarek Barrera Potassium [Moles/Vol] 3.5 mmol/L Normal 3.4-5.0 [facility] Comment on above: Performed By: #### T TERESITA, HSTROPN, CRP, CMP #### [facility] [address] [address] [address] Jarek Barrera Protein [Mass/Vol] 7.3 g/dL Normal 6.1-8.2 [facility] Comment on above: Performed By: #### T TERESITA, HSTROPN, CRP, CMP #### [facility] [address] [address] [address] Jarek Barrera Sodium [Moles/Vol] 140 mmol/L Normal 137-145 [facility] Comment on above: Performed By: #### T TERESITA, HSTROPN, CRP, CMP #### [facility] [address] [address] [address] Jarek Barrera Urea nitrogen [Mass/Vol] 21.0 mg/dL Critically high 9.0-20.0 [facility] Comment on above: Performed By: #### T TERESITA, HSTROPN, CRP, CMP #### [facility] [address] [address] [address] Jarek Barrera Urea nitrogen/Creatinine [Mass ratio] 19.8 mg/mg Normal [facility] Comment on above: Performed By: #### T TERESITA, HSTROPN, CRP, CMP #### [facility] [address] [address] [address] Jarek Barrera Surgical Pathologyon 020 Surgical [...] NONGYNECOLOGICAL CYTOPATHOLOGY CONSULTATION Patient Name: FER SANDOVAL [facility] Rec: [id number] Path Number: [id number] [facility] [employer] [facility] ANATOMIC PATHOLOGY [address] [place] [address]. [place], [place] [address] [place] BIOPSY THYROIDon 07-27-20 20 Successful ultrasound-guided fine-needle aspiration of the thyroid [place] PROCEDURE: ULTRASOUN D GUIDED THYROID FNA 07/26/2020 COMPARISON: Ultrasound of the head and neck from 06/28/2020. HISTORY: ORDERING SYSTEM PROVIDED HISTORY: Dysphagia, unspecified type TECHNOLOGIST PROVIDED HISTORY: thyroid nodule TECHNIQUE: Informed consent was obtained after the procedure was discussed in detail including the risk, benefits, and alternatives. [place] protocol was followed. The neck was prepped and draped in sterile fashion and local anesthesia was achieved with lidocaine. 25 gauge needle was advanced under ultrasound guidance into an enlarged left thyroid and fine-needle aspiration was performed. 4 passes were performed and the patient tolerated the procedure well. FINDINGS: Good needle position within the left thyroid lobe demonstrated. [place] Margarita Chin Incoming Radiant Results From [employer] - 07/27/2020 12:51 PM EDT PROCEDURE: ULTRASOUND GUIDED THYROID FNA 07/26/2020 COMPARISON: Ultrasound of the head and neck from 06/28/2020. HISTORY: ORDERING SYSTEM PROVIDED HISTORY: Dysphagia, unspecified type TECHNOLOGIST PROVIDED HISTORY: thyroid nodule TECHNIQUE: Informed consent was obtained after the procedure was discussed in detail including the risk, benefits, and alternatives. [place] protocol was followed. The neck was prepped [...] Successful ultrasound-guided fine-needle aspiration of the thyroid [place] T4, Freeon 06-28-2020 Interpretation and review of laboratory results Abnormal [place] Thyroxine, Free 0.82 ng/dL Low 0.93 - 1.7 ng/dL [place] TSH without Reflexon 020 TSH Qn 4.41 m[IU]/L [place] HEAD NECK SOFT TISSUE THY [...] in 1, 2, 3, and 5 years [place] EXAMINATION: THYROID ULTRASOUND 06/28/2020 COMPARISON: None. [...] 2. Echogenicity: Hypoechoic (2) heterogeneous 3. Shape: [id number] (0) 4. Margins: Ill-defined (0) 5. Echogenic foci: None (0) ACR TI-RADS total points: 4 ACR TI-RADS risk category: TR4 Cervical lymphadenopathy: No abnormal lymph nodes in the imaged portions of the neck. [place] Giuseppe, Mhpn Incoming Radiant Results From [employer] - 06/28/2020 4:29 PM EDT EXAMINATION: THYROID [...] 2. Echogenicity: Hypoechoic (2) heterogeneous 3. Shape: Qewow-lgyx-gcax (0) 4. Margins: Ill-defined (0) 5. Echogenic [...] in 1, 2, 3, and 5 years [place] Basic Metabolic Panelon 08-2 Anion gap [Moles/Vol] 8 mmol/L Low 9 - 17 mmol/L [place] Bun/Cre Ratio 25 High [place] Calcium [Mass/Vol] 9.3 mg/dL 8.6 - 10. 4 mg/dL [place] Chloride [Moles/Vol] 104 mmol/L 98 - 107 mmol/L [place] CO2 [Moles/Vol] 29 mmol/L 20 - 31 mmol/L [place] Creatinine [Mass/Vol] 0.97 mg/dL 0.7 - 1.2 mg/dL [place] GFR >60 >60 mL/min [place] GFR Non- >60 >60 mL/min [place] Glucose [Mass/Vol] 115 mg/dL High 70 - 99 mg/dL [place] Interpretation and review of laboratory results Abnormal [place] Potassium [Moles/Vol] 4.9 mmol/L 3.7 - 5.3 mmol/L [place] Sodium [Moles/Vol] 141 mmol/L 135 - 144 mmol/L [place] Urea nitrogen [Mass/Vol] 24 mg/dL High 8 - 23 mg/dL [place] CBC Auto Differentialon 05-08 Basophils (Bld) [#/Vol] 0.09 10*3/uL [place] Basophils/100 WBC (Bld) 1 % 0 - 2 % [place] Differential Type NOT REPORTED [place] Eosinophils (Bld) [#/Vol] 0.17 10*3/uL [place] Eosinophils/100 WBC (Bld) 2 % 1 - 4 % [place] Erythrocyte distribution width (RBC) [Ratio] 12.6 % 11.8 - 14.4 % [place] Hematocrit (Bld) [Volume fraction] 46.0 % 40.7 - 50.3 % [place] Hemoglobin (Bld) [Mass/Vol] 15.4 g/dL 13 - 17 g/dL [place] Immature granulocytes (Bld) [#/Vol] 0 % 0 [place] Immature granulocytes (Bld) [#/Vol] 0.03 10*3/uL [place] Interpretation and review of laboratory results Abnormal [place] Lymphocytes (Bld) [#/Vol] 1.15 10*3/uL [place] Lymphocytes/100 WBC (Bld) 16 % Low 24 - 43 % [place] MCH (RBC) [Entitic mass] 32.7 pg 25.2 - 33.5 pg [place] MCHC (RBC) [Mass/Vol] 33.5 g/dL 28.4 - 34.8 g/dL [place] MCV (RBC) [Entitic vol] 97.7 fL 82.6 - 102.9 fL [place] Monocytes (Bld) [#/Vol] 1.12 10*3/uL [place] Monocytes/100 WBC (Bld) 15 % High 3 - 12 % [place] Platelet mean volume (Bld) [Entitic vol] 10.0 fL 8.1 - 13.5 fL [place] Platelets (Bld) [#/Vol] NOT REPORTED [place] Platelets (Bld) [#/Vol] 171 10*3/uL [place] RBC (Bld) [#/Vol] 4.71 10*6/uL 4.21 - 5.7 7 m/uL [place] RBC morphology finding Nom (Bld) NOT REPORTED [place] Segmented neutrophils/100 WBC (Bld) 66 % High 36 - 65 % [place] Segs Absolute 4.84 [place] WBC (Bld) [#/Vol] 7.4 10*3/uL [place] WBC (Bld) [#/Vol] 0.0 10*3/uL 0.0 per 10 0 WBC [place] WBC Morphology NOT REPORTED [place], [place] CT Head WO Contraston 2019 Giuseppe, Mhpn Incoming Radiant Results From [employer] - 06/02/2020 4:20 PM EDT EXAMINATION: CT [...] KRISTI WEST at 4:17 pm on 06/02/2020. [place] EXAMINATION: CT OF THE HEAD WITHOUT [...] of the visualized skull or soft tissues. [place] 1. No acute intracranial abnormality. 2. 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 3. Stable diffuse parenchymal volume loss with mild chronic white matter microvascular ischemic changes. 4. Bilateral middle ear and mastoid effusions and bilateral maxillary sinus mucoperiosteal thickening. Findings were discussed with KRISTI WEST at 4:17 pm on 06/02/2020. [place] CTA HEAD NECK W CONTRASTon 0 [...] mass or mass effect. Right frontal encephalomalacia. [place] Giuseppe, Mhpn Incoming Radiant Results From [employer] - 06/02/2020 6:42 PM EDT EXAMINATION: CTA [...] J Am Tiffanie Radiol. 2015 Nov;12(2): 143-50 [place] 1. No acute arterial abnormality or hemodynamically significant arterial stenosis in the head or neck. 2. Heterogeneous enlargement of the thyroid gland. Nonemergent follow-up thyroid ultrasound is recommended for further evaluation if not previously performed. Reference: J Am Tiffanie Radiol. 2014;12(2): 143-50 [place] Magnesiumon 06-02-2020 Magnesium [Mass/Vol] 2.4 mg/dL 1.6 - 2.6 mg/dL [place] Metabolic Panelon 06-02-2020 GFR/1.73 sq M predicted among non-blacks MDRD (S/P/Bld) [Vol rate/Area] [place] Comment on above: Stage 1: Some [...] body mass. Additional eGFR calculator available at: http://www.[employer]/multiple_crcl_2012.htm XR CHEST STANDARD (2 VW)on 0 01-20-2020 No acute cardiopulmonary disease. [place] EXAMINATION: TWO XRA Y VIEWS OF THE CHEST 01/20/2020 8:20 am COMPARISON: 09/06/2019 HISTORY: ORDERING SYSTEM PROVIDED HISTORY: Cough TECHNOLOGIST PROVIDED HISTORY: cough FINDINGS: The heart and mediastinal structures are stable. The pulmonary vasculature is normal. Lungs are clear. Severe bilateral shoulder arthritis is noted. [place] Giuseppe, Mhpn Incoming Radiant Results From [employer] - 01/20/2020 8:37 AM EDT EXAMINATION: TWO XRAY VIEWS OF THE CHEST 01/20/2020 8:20 am COMPARISON: 09/06/2019 HISTORY: ORDERING SYSTEM PROVIDED HISTORY: Cough TECHNOLOGIST PROVIDED HISTORY: cough FINDINGS: The heart and mediastinal structures are stable. The pulmonary vasculature is normal. Lungs are clear. Severe bilateral shoulder arthritis is noted. IMPRESSION: No acute cardiopulmonary disease. [place] EGDOrdered By: Nemesio Mayen on 11-02-2019 No dictation [employer] Work Phone: ED Clinical Summaryon 2018 ED Clinical Summary [id number] [place], [place] [id number] ED Clinical Summary Person Information Name: Fer Sandoval/Walter_Cliff Age: 59 Years : 1960 Sex: Male PCP: Parth MIX, Jessica Mcmillan Marital Status: Single Phone: Race: White Ethnicity: Not or Language: Moldovan Visit Reason: Difficulty swallowing; Difficulty swallowing Acuity: 3 Enc Type: Emergency Med Service: Emergency Medicine Arrival: 09/06/2019 22:17:27 Discharge: 09/06/2019 22:45:00 LOS: 000 00:28 Checkin: 09/06/2019 22:17:27 Checkout: 09/06/2019 22:45:00 Dispo Type: Other Healthcare Facility Address: [address] [place] [address] [place] [address] Provider Notes: Diagnosis: 1:Esophageal obstruction due to [...] Provider 09/06/2019 22:18:37 09/06/2019 22:24:27 Tono MIX, [facility] ED Provider 09/06/2019 22:18:43 09/06/2019 22:24:36 [place] III, MD ED Provider 09/06/2019 22:24:34 Kat Villareal ED Nurse 09/06/2019 22:31:48 Follow up: With: Address: When: Jessica Alba [address], [place] [address] [phone] Business (1) Within 2 to 4 days Discharge Orders: Discharge Patient 09/06/19 22:24:00 EST, Discharge to Home, Self, Esophageal obstruction due to food impaction Patient Education Information: ESOPHAGEAL FOREIGN BODY, Resolved [facility] Poison Help line: . [facility] Hotline: [place] Tobacco Quit Line: [facility] ([place], [place]) [address]: [phone] [place], [place]) [address]: [phone] [facility] [address] [place], [place]: [phone] [facility] ED Note-Physicianon 09-07-20 ED Note-Physician Chief Complaint pt tx from [facility], pt coughed up food bolus, chewed it up, and swallowed it History of Present Illness Patient sent by EMS from [facility] after he presented there with esophageal food bolus. He was eating a hotdog Choked on some of it and was unable to clear it. He presented to the ED and [place] but they did not have GI coverage so they transferred him here to [place]. In route EMS reports that he had [...] III, MD 09/07/19 02:[address] [facility] Basic Metabolic Panelon 12-0 Anion gap [Moles/Vol] 9 mmol/L 9 - 17 mmol/L [place] Bun/Cre Ratio 25 High [place] Calcium [Mass/Vol] 9.0 mg/dL 8.6 - 10. 4 mg/dL [place] Chloride [Moles/Vol] 101 mmol/L 98 - 107 mmol/L [place] CO2 [Moles/Vol] 28 mmol/L 20 - 31 mmol/L [place] Creatinine [Mass/Vol] 0.8 mg/dL 0.7 - 1.2 mg/dL [place] GFR >60 >60 mL/min [place] GFR Non- >60 >60 mL/min [place] Glucose [Mass/Vol] 116 mg/dL High 70 - 99 mg/dL [place] Interpretation and review of laboratory results Abnormal [place] Potassium [Moles/Vol] 4.5 mmol/L 3.7 - 5.3 mmol/L [place] Sodium [Moles/Vol] 138 mmol/L 135 - 144 mmol/L [place] Urea nitrogen [Mass/Vol] 20 mg/dL 8 - 23 mg/dL [place] CBC auto differentialon 12-0 -2018 Basophils (Bld) [#/Vol] 0.08 10*3/uL [place] Basophils/100 WBC (Bld) 1 % 0 - 2 % [place] Differential Type NOT REPORTED [place] Eosinophils (Bld) [#/Vol] 0.19 10*3/uL [place] Eosinophils/100 WBC (Bld) 3 % 1 - 4 % [place] Erythrocyte distribution width (RBC) [Ratio] 12.9 % 11.8 - 14.4 % [place] Hematocrit (Bld) [Volume fraction] 43.6 % 40.7 - 50.3 % [place] Hemoglobin (Bld) [Mass/Vol] 14.3 g/dL 13 - 17 g/dL [place] Immature granulocytes (Bld) [#/Vol] 10*3/uL [place] Immature granulocytes (Bld) [#/Vol] 0 % 0 [place] Interpretation and review of laboratory results Abnormal [place] Lymphocytes (Bld) [#/Vol] 0.82 10*3/uL [place] Lymphocytes/100 WBC (Bld) 13 % Low 24 - 43 % [place] MCH (RBC) [Entitic mass] 33.1 pg 25.2 - 33.5 pg [place] MCHC (RBC) [Mass/Vol] 32.8 g/dL 28.4 - 34.8 g/dL [place] MCV (RBC) [Entitic vol] 100.9 fL 82.6 - 102.9 fL [place] Monocytes (Bld) [#/Vol] 0.77 10*3/uL [place] Monocytes/100 WBC (Bld) 12 % 3 - 12 % [place] Platelet mean volume (Bld) [Entitic vol] 9.5 fL 8.1 - 13.5 fL [place] Platelets (Bld) [#/Vol] NOT REPORTED [place] Platelets (Bld) [#/Vol] 173 10*3/uL [place] RBC (Bld) [#/Vol] 4.32 10*6/uL 4.21 - 5.7 7 m/uL [place] RBC morphology finding Nom (Bld) NOT REPORTED [place] Segmented neutrophils/100 WBC (Bld) 71 % High 36 - 65 % [place] Segs Absolute 4.34 [place] WBC (Bld) [#/Vol] 0.0 10*3/uL 0.0 per 10 0 WBC [place] WBC (Bld) [#/Vol] 6.2 10*3/uL [place] WBC Morphology NOT REPORTED [place] Metabolic Panelon 09-06-2019 GFR/1.73 sq M predicted among non-blacks MDRD (S/P/Bld) [Vol rate/Area] [place] Comment on above: Stage 1: Some [...] body mass. Additional eGFR calculator available at: http://www.[employer]/multiple_crcl_2012.htm XR CHEST PORTABLEon 09-06-20 19 Giusepep, Mhpn Incoming Radiant Results From [employer] - 09/06/2019 9:11 PM EST EXAMINATION: ONE XRAY VIEW OF THE CHEST 09/06/2019 8:46 pm COMPARISON: December 03, 2018 HISTORY: ORDERING SYSTEM PROVIDED HISTORY: aspiration concern TECHNOLOGIST PROVIDED HISTORY: aspiration concern FINDINGS: Cardiac silhouette is mildly enlarged. Lungs appear clear. No acute bony abnormality. IMPRESSION: No acute findings [place] EXAMINATION: ONE XRA Y VIEW OF THE CHEST 09/06/2019 8:46 pm COMPARISON: December 03, 2018 HISTORY: ORDERING SYSTEM PROVIDED HISTORY: aspiration concern TECHNOLOGIST PROVIDED HISTORY: aspiration concern FINDINGS: Cardiac silhouette is mildly enlarged. Lungs appear clear. No acute bony abnormality. [place] No acute findings [place] Lipid Panelon 08-27-2019 Cholesterol [Mass/Vol] 136 mg/dL <200 [place] Comment on above: Cholesterol Guidelines: <200 Desirable 200-240 Borderline >240 Undesirable Cholesterol in HDL [Mass/Vol] 51 mg/dL >40 [place] Comment on above: HDL Guidelines: <40 Undesirable 40-59 Borderline >59 Desirable Cholesterol in LDL [Mass/Vol] 65 mg/dL 0 - 130 mg/dL [place] Comment on above: LDL Guidelines: <100 Desirable 100-129 Near to/above Desirable 130-159 Borderline >159 Undesirable Direct (measured) LDL and calculated LDL are not interchangeable tests. Cholesterol in VLDL [Mass/Vol] NOT REPORTED 1 - 30 mg/dL [place] Cholesterol.total/C holesterol in HDL [Mass ratio] 2.7 {ratio} <5 [place] Triglyceride [Mass/Vol] 99 mg/dL <150 [place] Comment on above: Triglyceride Guidelines: <150 Desirable 150-199 Borderline 200-499 High >499 Very high Based on AHA Guidelines for fasting triglyceride, July 2012. CBC Auto Differentialon 08-07 Basophils (Bld) [#/Vol] 0.10 10*3/uL [place] Basophils/100 WBC (Bld) 2 % 0 - 2 % [place] Differential Type NOT REPORTED [place] Eosinophils (Bld) [#/Vol] 0.14 10*3/uL [place] Eosinophils/100 WBC (Bld) 3 % 1 - 4 % [place] Erythrocyte distribution width (RBC) [Ratio] 12.6 % 11.8 - 14.4 % [place] Hematocrit (Bld) [Volume fraction] 46.0 % 40.7 - 50.3 % [place] Hemoglobin (Bld) [Mass/Vol] 14.8 g/dL 13 - 17 g/dL [place] Immature granulocytes (Bld) [#/Vol] 0 % 0 [place] Immature granulocytes (Bld) [#/Vol] 10*3/uL [place] Interpretation and review of laboratory results Abnormal [place] Lymphocytes (Bld) [#/Vol] 1.20 10*3/uL [place] Lymphocytes/100 WBC (Bld) 22 % Low 24 - 43 % [place] MCH (RBC) [Entitic mass] 33.0 pg 25.2 - 33.5 pg [place] MCHC (RBC) [Mass/Vol] 32.2 g/dL 28.4 - 34.8 g/dL [place] MCV (RBC) [Entitic vol] 102.4 fL 82.6 - 102.9 fL [place] Monocytes (Bld) [#/Vol] 0.71 10*3/uL [place] Monocytes/100 WBC (Bld) 13 % High 3 - 12 % [place] Platelet mean volume (Bld) [Entitic vol] 9.4 fL 8.1 - 13.5 fL [place] Platelets (Bld) [#/Vol] 210 10*3/uL [place] Platelets (Bld) [#/Vol] NOT REPORTED [place] RBC (Bld) [#/Vol] 4.49 10*6/uL 4.21 - 5.7 7 m/uL [place] RBC morphology finding Nom (Bld) NOT REPORTED [place] Segmented neutrophils/100 WBC (Bld) 60 % 36 - 65 % [place] Segs Absolute 3.32 [place] WBC (Bld) [#/Vol] 0.0 10*3/uL 0.0 per 10 0 WBC [place] WBC (Bld) [#/Vol] 5.5 10*3/uL [place] WBC Morphology NOT REPORTED [place] Comprehensive Metabolic Pane mirna 11-15-2019 Albumin [Mass/Vol] 3.6 g/dL 3.5 - 5.2 g/dL [place] Albumin/Globulin [Mass ratio] 0.9 {ratio} [place] ALP [Catalytic activity/Vol] 86 U/L 40 - 129 U/L [place] ALT [Catalytic activity/Vol] 12 U/L 5 - 41 U/L [place] Anion gap [Moles/Vol] 10 mmol/L 9 - 17 mmol/L [place] AST [Catalytic activity/Vol] 16 U/L <40 [place] Bilirubin Ql (U) 0.26 mg/dL Low 0.3 - 1.2 mg/dL [place] Bun/Cre Ratio 20 [place] Calcium [Mass/Vol] 8.9 mg/dL 8.6 - 10. 4 mg/dL [place] Chloride [Moles/Vol] 100 mmol/L 98 - 107 mmol/L [place] CO2 [Moles/Vol] 28 mmol/L 20 - 31 mmol/L [place] Creatinine [Mass/Vol] 0.83 mg/dL 0.7 - 1.2 mg/dL [place] GFR >60 >60 mL/min [place] GFR Non- >60 >60 mL/min [place] Glucose [Mass/Vol] 101 mg/dL High 70 - 99 mg/dL [place] Interpretation and review of laboratory results Abnormal [place] Potassium [Moles/Vol] 4.1 mmol/L 3.7 - 5.3 mmol/L [place] Protein [Mass/Vol] 7.4 g/dL 6.4 - 8.3 g/dL [place] Sodium [Moles/Vol] 138 mmol/L 135 - 144 mmol/L [place] Urea nitrogen [Mass/Vol] 17 mg/dL 8 - 23 mg/dL [place] Metabolic Panelon 08-21-2019 GFR/1.73 sq M predicted among non-blacks MDRD (S/P/Bld) [Vol rate/Area] [facility] [place] Comment on above: Average GFR for 60-6 9 years old: 85 mL/min/1.73sq m Chronic Kidney Disease: <60 mL/min/1.73sq m Kidney failure: <15 mL/min/1.73sq m eGFR calculated using average adult body mass. Additional eGFR calculator available at: http://www.[employer]/multiple_crcl_2012.htm Stage 1: Some kidney damage normal GFR Stage 2: Mild kidney damage GFR 60-89 Stage 3: Moderate kidney damage GFR 30-59 Stage 4: Severe kidney damage GFR 15-29 Stage 5: Severe kidney damage GFR <15 ESRD - chronic treatment by dialysis or transplant XR CHEST STANDARD (2 VW)on 10-21-2018 No acute process. Sophia Mcmillan [facility] [place] EXAMINATION: TWO XRA Y VIEWS OF THE CHEST 08/21/2019 5:26 pm COMPARISON: 12/03/2018 HISTORY: ORDERING SYSTEM PROVIDED HISTORY: Cough TECHNOLOGIST PROVIDED HISTORY: fatigue, cough FINDINGS: The lungs are without acute focal process. There is no effusion or pneumothorax. The cardiomediastinal silhouette is stable. The osseous structures [facility] stable[facility] Incoming Radiant Results From [employer] - 08/21/2019 5:40 PM EST EXAMINATION: TWO XRAY VIEWS OF THE CHEST 08/21/2019 5:26 pm COMPARISON: 12/03/2018 HISTORY: ORDERING SYSTEM PROVIDED HISTORY: Cough TECHNOLOGIST PROVIDED HISTORY: fatigue, cough FINDINGS: The lungs are without acute focal process. There is no effusion or pneumothorax. The cardiomediastinal silhouette is stable. The osseous structures are stable. IMPRESSION: No acute process. [facility] [place] Progress Noteon 06-16-2018 HIM IP Note OR Operating Room Scheduler Normal [facility] Progress Noteon 05-05-2018 HIM IP Note OR Operating Room Scheduler Normal [facility] HIM IP Note OR Operating Room Scheduler Normal [facility] Progress Noteon 03-17-2018 HIM IP Note OR Operating Room Scheduler Normal [facility] HIM IP Note OR Operating Room Scheduler Normal [facility] Vital Signs Date Time Vital Sign Value Performing Clinician Santiagoi litolesya 05-31-2022 13:24-0400 Body temperature 97 [degF] Rhina March MD Work Phone: [facility] [employer] 05-31-2022 13:24-0400 Diastolic blood pressure 55 mm[Hg] Rhina March MD Work Phone: [facility] [employer] 05-31-2022 13:24-0400 Heart rate 71 /min Rhina March MD Work Phone: [facility] [employer] 05-31-2022 13:24-0400 Respiratory rate 17 /min Rhina March MD Work Phone: [facility] [employer] 05-31-2022 13:24-0400 SaO2% (BldA) [Mass fraction] 95 % Rhina March MD Work Phone: [facility] [employer] 05-31-2022 13:24-0400 Systolic blood pressure 95 mm[Hg] Rhina March MD Work Phone: [facility] [employer] 05-31-2022 05:15-0400 Body mass index (BMI) [Ratio] 30.61 kg/m2 Rhina March MD Work Phone: [facility] [employer] 05-31-2022 05:15-0400 Body weight 73.48 kg Rhina March MD Work Phone: [facility] [employer] 05-30-2022 06:31-0400 Body height 154.9 cm Rhina March MD Work Phone: [employer] 08-10-2021 15:18-0400 Body temperature 97.39 [degF] Jessica Alba MD Work Phone: [employer] Work Phone: 08-10-2021 15:18-0400 Diastolic blood pressure 77 mm[Hg] Jessica Alba MD Work Phone: [employer] Work Phone: 08-10-2021 15:18-0400 Heart rate 118 /min Jessica Alba MD Work Phone: [employer] Work Phone: 08-10-2021 15:18-0400 Respiratory rate 18 /min Jessica Alba MD Work Phone: [employer] Work Phone: 08-10-2021 15:18-0400 SaO2% (BldA) [Mass fraction] 98 % Jessica Alba MD Work Phone: [employer] Work Phone: 08-10-2021 15:18-0400 Systolic blood pressure 117 mm[Hg] Jessica Alba MD Work Phone: [employer] Work Phone: 07-13-2021 10:45-0400 Diastolic blood pressure 80 mm[Hg] Can Consolo DPM Work Phone: [employer] Work Phone: 07-13-2021 10:45-0400 Heart rate 72 /min Can Consolo DPM Work Phone: [employer] Work Phone: 07-13-2021 10:45-0400 Respiratory rate 18 /min Can Consolo DPM Work Phone: [employer] Work Phone: 07-13-2021 10:45-0400 SaO2% (BldA) [Mass fraction] 94 % Can Consolo DPM Work Phone: [employer] Work Phone: 07-13-2021 10:45-0400 Systolic blood pressure 104 mm[Hg] Can Consolo DPM Work Phone: [employer] Work Phone: 07-13-2021 10:20-0400 Body temperature 99.61 [degF] Can Consolo DPM Work Phone: [employer] Work Phone: 07-13-2021 09:08-0400 Body height 147.3 cm Can Mind[employer]ost[employer] DPM Work Phone: [employer] Work Phone: 07-13-2021 09:08-0400 Body mass index (BMI) [Ratio] 31.56 kg/m2 Can MindSumostorm DPM Work Phone: [employer] Work Phone: 07-13-2021 09:08-0400 Body weight 68.49 kg Can Giordano DPM Work Phone: [employer] Work Phone: 07-26-2020 14:31-0400 BP Diastolic 66 mm[Hg] [facility] [place] 07-26-2020 14:31-0400 BP Systolic 112 mm[Hg] [place] 07-26-2020 14:31-0400 Pulse (Heart Rate) 76 /min [facility], [place] 07-26-2020 14:31-0400 Pulse Oximetry 96 % [place] 07-26-2020 14:31-0400 Respiratory Rate 16 /min [facility], [place] 06-02-2020 18:18-0400 Pulse (Heart Rate) 66 /min Kristi Cortes [facility] [place], [place] 06-02-2020 17:10-0400 Pulse Oximetry 97 % Kristi West [facility] [employer] [facility], [place] 06-02-2020 16:02-0400 BP Diastolic 92 mm[Hg] Kristi West [facility] - [place], [place] 06-02-2020 16:02-0400 BP Systolic 109 mm[Hg] Kristi West [facility] [place], [place] 06-02-2020 15:37-0400 Body Temperature 97.59 [degF] [facility] [place] 06-02-2020 15:37-0400 Respiratory Rate 16 /min Kristi Jenna Cortes [facility]- [place], [place] 11-02-2019 12:00-0500 Diastolic blood pressure 75 mm[Hg] Nemesio Mayen MD Work Phone: [employer] Work Phone: 11-02-2019 12:00-0500 Heart rate 57 /min Nemesio Myaen MD Work Phone: [employer] Work Phone: 11-02-2019 12:00-0500 Respiratory rate 16 /min Nemesio Mayen MD Work Phone: [employer] Work Phone: 11-02-2019 12:00-0500 SaO2% (BldA) [Mass fraction] 97 % Nemesio Mayen MD Work Phone: [employer] Work Phone: 11-02-2019 12:00-0500 Systolic blood pressure 123 mm[Hg] Nemesio Mayen MD Work Phone: [employer] Work Phone: 11-02-2019 11:13-0500 Body temperature 97.2 [degF] Nemesio Mayen MD Work Phone: [employer] Work Phone: 11-02-2019 09:43-0500 Body height 147.3 cm Nemesio Mayen MD Work Phone: [employer] Work Phone: 11-02-2019 09:43-0500 Body mass index (BMI) [Ratio] 39.92 kg/m2 Nemesio Mayen MD Work Phone: [employer] Work Phone: 11-02-2019 09:43-0500 Body weight 86.64 kg Nemesio Mayen MD Work Phone: [employer] Work Phone: 09-06-2019 20:20-0500 Pulse Oximetry 96 % [employer] [place] 09-06-2019 20:12-0500 BMI (Body Mass Index) 41.38 kg/m2 [facility] [place], [place] 09-06-2019 20:12-0500 Body Temperature 96.91 [degF] [place] 09-06-2019 20:12-0500 Body weight 89.81 kg [place] 09-06-2019 20:12-0500 BP Diastolic 88 mm[Hg] [place] 09-06-2019 20:12-0500 BP Systolic 108 mm[Hg] [facility] , [place] 09-06-2019 20:12-0500 Pulse (Heart Rate) 81 /min [place] 09-06-2019 20:12-0500 Respiratory Rate 18 /min [place] Encounters Encounter Date Encounter Type Care Provider Facility Start: 05-29-2022 End: 05-31-2022 Evaluation and management of inpatient [facility] Start: 05-29-2022 End: 05-31-2022 Evaluation and management of inpatient Rhina March MD Work Phone: [facility] Comment on above: COPD exacerbation (H CC) (Primary Dx) Start: 01-10-2022 Encounter for genera l adult medical examination without abnormal findings DR JESSICA ALBA [facility] Start: 01-06-2022 End: 01-07-[address] JESSICA ALBA Facility:[facility] Start: 01-06-2022 End: 01-07-2022 Encounter for general adult medical examination without abnormal findings DR JESSICA ALBA Facility:[facility] Start: 12-27-2021 End: 12-30-2021 ambulatory [facility] Start: 11-25-2021 End: 11-25-[address] DOCTOR CALDERON Facility:[facility] Start: 11-18-2021 End: 11-22-2021 Evaluation and management of inpatient [facility] Facility:[facility] Start: 08-10-2021 End: 08-10-2021 Emergency department patient visit [facility] Start: 08-10-2021 End: 08-10-2021 Emergency department patient visit Jessica Alba MD Work Phone: [facility] ED Comment on above: Contusion of right h and, initial encounter (Primary Dx); Injury of head, initial encounter; Contusion of face, initial encounter Start: 07-13-2021 End: 07-13-2021 ambulatory JESSICA MARGARITA [facility] Start: 07-13-2021 End: 07-13-2021 Subsequent hospital visit by physician Can Giordano DPM Work Phone: [facility] Start: 05-16-2021 End: 05-17-2021 ambulatory HAYDEE HAMMOND Facility:[facility] Start: 02-17-2021 End: 02-17-2021 Subsequent hospital visit by physician Jessica Alba MD Work Phone: [facility] Start: 11-17-2020 End: 11-17-2020 Subsequent hospital visit by physician Carl Garcia [facility] Therapy Comment on above: Arrived Start: 07-26-2020 End: 07-28-2020 Subsequent hospital visit by physician Netta Gen Radiologist [facility] Comment on above: Dysphagia, intermitt ent solid food / normal EGD 2019; Thyromegaly / incidental finding on CT scan of the neck 2019 Start: 06-28-2020 End: 06-30-2020 Subsequent hospital visit by physician [facility]ound Room [facility] Comment on above: Thyromegaly / incide ntal finding on CT scan of the neck 2019 Start: 06-02-2020 End: 06-02-2020 Emergency department patient visit Kristi West [facility] ED Comment on above: Facial droop (Primar y Dx); Enlarged thyroid Start: 03-23-2020 End: 03-23-2020 Subsequent hospital visit by physician Myla Campbell [facility] Comment on above: Arrived Start: 03-17-2020 End: 03-17-2020 Subsequent hospital visit [facility] Start: 03-11-2020 End: 03-11-2020 Subsequent hospital visit by physician Nehemias Lombardi [facility] Comment on above: Arrived Start: 03-01-2020 End: 03-01-2020 Subsequent hospital visit by physician Myla Campbell [facility] Comment on above: Arrived Start: 01-20-2020 End: 01-22-2020 Subsequent hospital visit by physician Netta Enc[address]acion Dr Room 4 [facility] Comment on above: Cough Start: 11-02-2019 End: 11-02-2019 Subsequent hospital visit by physician Nemesio Mayen MD Work Phone: [facility] Start: 09-07-2019 End: 09-07-2019 Emergency department patient visit JESSICA ALBA Facility:[facility] Start: 09-06-2019 End: 09-06-2019 Emergency department patient visit Siva Pierre Work Phone: [facility] Comment on above: Esophageal obstructi on due to food impaction (Primary Dx) Start: 08-27-2019 End: 08-27-2019 Subsequent hospital visit by physician Jessica Alba [facility] Comment on above: Mixed hyperlipidemia Start: 08-21-2019 End: 08-23-2019 Subsequent hospital visit by physician Netta Encarnacion Dr Room 4 [facility] Comment on above: Malaise and fatigue Cough; SOB (shortness of breath) Start: 04-29-2017 End: 2018 Patient encounter status Jessica Alba MD Work Phone: [facility] Work Phone: Procedures Date Procedure Procedure Detail Performing Clinician Start: 05-31-2022 BASIC METABOLIC PANEL W/ REFLEX TO MG FOR LOW K Garbielle A [place] HARDWARE INSTALLATION COORDINATOR - GLEASON GEAR GENERATOR Work Phone: Start: 05-31-2022 Blood count complete auto&auto difrntl wbc Gabrielle Sirena [place] HARDWARE INSTALLATION COORDINATOR - GLEASON GEAR GENERATOR Work Phone: Start: 05-30-2022 Radiologic exam swallow function contrast study Gabrielle Delatorre HARDWARE INSTALLATION COORDINATOR - GLEASON GEAR GENERATOR Work Phone: Start: 05-30-2022 BASIC METABOLIC PANEL W/ REFLEX TO MG FOR LOW K Gabrielle Sirena Juan Ramon HARDWARE INSTALLATION COORDINATOR - GLEASON GEAR GENERATOR Work Phone: Start: 05-30-2022 Blood count complete auto&auto difrntl wbc Gabrielle Sirena Juan Ramon HARDWARE INSTALLATION COORDINATOR - GLEASON GEAR GENERATOR Work Phone: Start: 05-29-2022 MOTION PICTURE PROJECTIONIST CLINICAL BEDSIDE SWALLOW EVALUATION & TREATMENT Gabrielle Delatorre HARDWARE INSTALLATION COORDINATOR - GLEASON GEAR GENERATOR Work Phone: Start: 05-29-2022 Culture bacterial blood [...] on above: Performed By: #### PHVEN #### [facility] [address] [place] [address] Dr. Jarek Barrera Start: 08-10-2021 Ct cervical [...] 11-02-2029 Screening for malignant neoplasm of colon [facility] Start: 12-10-2024 DTaP/Tdap/Td vaccine (2 - Td or Tdap) DTaP/Tdap/Td vaccine (2 - Td or Tdap) [facility] Start: 12-10-2024 DTaP/Tdap/Td vaccine (2 - Td) DTaP/Tdap/Td vaccine (2 - Td) [place] Start: 12-22-2023 Colon cancer screen colonoscopy Colon cancer [place] Start: 12-22-2023 Screening for malignant neoplasm of colon Colon cancer screen [place]oscopy [place] Start: 01-11-2023 End: 01-11-2023 Patient encounter procedure 01/11/2023 Office Visit Internal Medicine Jessica Alba MD [address] [place] [address], [facility] [place] [address] Jessica Alba MD Start: 01-10-2023 Annual Wellness Visit (AWV) Annual Wellness Visit (AWV) [facility] Start: 01-09-2023 Depression Monitoring Depression Monitoring [facility] Start: 01-06-2023 Lipid panel Lipids [facility] Start: 07-13-2022 End: 07-13-2022 Patient encounter procedure 07/13/2022 Office Visit Internal Medicine Jessica Alba MD [address] [place] [address], [facility] [place] [id number] Jessica Alba MD Start: 06-08-2022 End: 06-08-2022 Patient encounter procedure 06/08/2022 Office Visit Internal Medicine Jessica Alba MD [address] [place] [address], [facility] [place] [address] Jessica Alba MD Start: 06-07-2022 Influenza vaccination Flu vaccine (#1) [facility] Start: 04-10-2022 Lipid panel Lipid screen [facility] Work Phone: Start: 12-20-2021 COVID-19 Vaccine (4 - Booster for Moderna series) COVID-19 Vaccine (4 - Booster for Moderna series) BENNIE BLAND [facility] [employer] Start: 12-16-2021 Diabetes screen Diabetes screen [place] Start: 10-24-2021 End: 10-24-2021 Patient encounter procedure 10/24/2021 Office Visit Internal Medicine Jessica Alba MD [address] [place] [address], [address] [facility] [place] [address] [phone] Jessica Alba MD Start: 10-11-2021 Annual Wellness Visit (AWV) Annual Wellness Visit (AWV) [facility] [employer] Phone: Start: 07-21-2021 End: 07-21-2021 Patient encounter procedure 07/21/2021 Office Visit Internal Medicine Jessica Alba MD [address] [place] [address], [place] [address] [phone] Jessica Alba MD Start: 06-07-2021 Influenza vaccination Flu vaccine (#1) [facility] [employer] Phone: Start: 04-19-2021 End: 04-19-2021 Patient encounter procedure 04/19/2021 Office Visit Internal Medicine Jessica Alba MD [address] [place] [address], [address] [facility] [place] [address] [phone] Jessica Alba MD Start: 01-11-2021 End: 01-11-2021 Office Visit 01/11/2021 Office Visit Internal Jessica Walters MD [address] [place] [address], [address] [facility] [address] [phone] Jessica Alba MD Start: 10-10-2020 End: 10-10-2020 Office Visit 10/10/2020 Office Visit Internal Jessica Walters MD [address] [place] [address], [place] [address] [phone] Jessica Alba MD Start: 08-27-2020 Lipid panel [place] Start: 08-27-2020 Lipid screen [place] Start: 08-02-2020 Shingles Vaccine (2 of 2) Shingles Vaccine (2 of 2) [place] Start: 07-03-2020 Annual Wellness Visit (AWV) Annual Wellness Visit (AWV) [place] Start: 07-03-2020 Hepatitis C screen Hepatitis C screen [place] Comment on above: Postponed from 1958 (Patient Refus ed) Start: 07-03-2020 Hepatitis C screening Hepatitis C screen [place] Comment on above: Postponed from 1958 (Patient Refus ed) Start: 07-03-2020 Shingles Vaccine (1 of 2) Shingles Vaccine (1 of 2) [place] Comment on above: Postponed from 2008 (Patient Refus ed) Start: 2020 Annual Wellness Visit (AWV) Annual Wellness Visit (AWV) [place] Start: 06-29-2020 End: 06-29-2020 Office Visit 06/29/2020 Office Visit Internal Medicine Jessica Alba MD [address] [place] [address], [facility] [place] [address] [phone] Jessica Alba MD Start: 06-07-2020 Influenza [place] Start: 04-08-2020 HIV screen HIV screen [place] Comment on above: Postponed from 1973 (Not Indicated ) Start: 04-08-2020 HIV screening HIV screen [place] Comment on above: Postponed from 1973 [...] Office Visit Internal Medicine Jessica Alba MD [address] [place] [address], [place] [address] [phone] Jessica Alba MD Start: 06-07-2019 Influenza vaccination Flu vaccine (#1) [place] Start: 03-04-2019 Annual Wellness Visit (AWV) Annual Wellness Visit (AWV) [place] Start: 05-25-2016 Lipid screen [place] Start: 2003 Screening for malignant neoplasm of colon [facility] [employer] Start: 1973 HIV screening HIV screen [place] Start: 1964 Pneumococcal 0-64 years Vaccine (1 - PCV) Pneumococcal 0-64 years Vaccine (1 - PCV) [facility] [employer] Start: 1964 Pneumococcal 0-64 years Vaccine (1 of 1 - PPSV23) Pneumococcal 0-64 years Vaccine (1 of 1 - PPSV23) [facility] Compliance 360 Phone: Start: 1960 Hepatitis C screening Hepatitis C screen [place], [place] End: 06-01-2022 Basic Metabolic Panel w/ Reflex to MG Basic Metabolic Panel w/ Reflex to MG Lab Routine Daily for 3 Days starting 05/30/2022 until 06/01/2022, 2 completed [employer] Phone: Comment on above: Daily for 3 Days starting 05/30/2022 unt il 06/01/2022, 2 completed Blood Culture 1 Blood Culture 1 Microbiology STAT 05/29/2022 12:09 PM EDT [facility] Phone: End: 06-01-2022 CBC W Auto Differential panel - Blood CBC auto differential Lab Routine Daily for 3 Days starting 05/30/2022 until 06/01/2022, 2 completed [employer] Phone: Comment on above: Daily for 3 Days starting 05/30/2022 unt il 06/01/2022, 2 completed Chest Vest [employer] Phone: Comment on above: TID until discontinued starting 05/29/20 22 As Needed until disc ontinued starting 05/29/2022 Continuous pulse oximetry Pulse oximetry, continuous Respiratory Care Routine Every 4hr until discontinued starting 05/29/2022 [employer] Phone: Comment on above: Every 4hr until discontinued starting Culture, Blood 2 Culture, Blood 2 Microbiology STAT 05/29/2022 12:52 PM EDT [employer] Phone: Culture, Wound Culture, Wound Microbiology Routine 02/17/2021 8:54 AM EDT [employer] Phone: End: 11-02-2019 Esophagogastroduodenoscopy EGD Endoscopy Routine One Time for 1 Occurrences starting 11/02/2019 until 11/02/2019, 1 completed [employer] Work Phone: Comment on above: One Time for 1 Occurrences starting 10/08 until 11/02/2019, 1 completed H. PYLORI [employer] [facility] Work Phone: Comment on above: ONE TIME for 1 Occurrences starting 10/08 Nasal Cannula Oxygen Nasal Cannu la Oxygen Respiratory Care Routine Daily until discontinued starting 05/29/2022 [employer] Work Phone: Comment on above: Daily until discontinued starting 2021 Oxygen therapy [Minimum Data Set ] Initiate Oxygen Therapy Protocol Respiratory Care Routine Daily until discontinued starting 07/13/2021 [employer] Phone: Comment on above: Daily until discontinued starting 2020 Oxygen therapy [Minimum Data Set ] Initiate Oxygen Therapy Protocol Respiratory Care Routine As Needed until discontinued starting 05/29/2022 [employer] Phone: Comment on above: As Needed until discontinued starting Phase I & II - metered glucose P hase I & II - metered glucose Point of Care Testing Routine As Needed until discontinued starting 07/13/2021 [employer] Phone: Comment on above: As Needed until discontinued starting [facility] Work Phone: Comment on above: Release Upon Ordering for 1 Occurrences starting 07/13/2021 ONE TIME for 1 Occur rences starting 11/02/2019 End: 06-02-2020 Urinalysis with Microscopic Urinalysis with Microscopic Lab STAT One Time for 1 Occurrences starting 06/02/2020 until 06/02/2020 [place] Comment on above: One Time for 1 Occurrences starting 05/08 until 06/02/2020 Immunizations Immunization Date Immunization Notes Care Provider Fa cili 08-22-2021 COVID-19, MODERNA BL UE border, Primary or Immunocompromised, (age 12y+), IM, 100 mcg/0.5mL Rhina March MD Work Phone: [facility] Work Phone: 07-21-2021 Seasonal, quadrivale nt, recombinant, injectable influenza vaccine, preservative free Jessica Alba MD Work Phone: [facility] Work Phone: 11-14-2020 COVID-19, Moderna, P F, 100mcg/0.5mL Jessica Alba MD Work Phone: [facility] Work Phone: 10-17-2020 COVID-19, Moderna, P F, 100mcg/0.5mL Jessica Alba MD Work Phone: [facility] Work Phone: 08-12-2020 zoster vaccine recombinant [facility] Work Phone: 07-26-2020 Seasonal, quadrivale nt, recombinant, injectable influenza vaccine, preservative free [facility] Work Phone: 06-07-2020 zoster vaccine recombinant Jessica [facility] 07-07-2018 influenza virus vaccine, unspecified formulation [facility], [place] 08-02-2017 Influenza, Quadv, 6 mo and older, IM (Fluzone, Flulaval) Jessica Alba [facility] 08-07-2016 influenza virus vaccine, unspecified formulation Jessica Cortes [facility]- [place], [place] 07-18-2015 influenza virus vaccine, unspecified formulation Jessica [facility] 12-10-2014 tetanus toxoid, redu ashok diphtheria toxoid, and acellular pertussis vaccine, adsorbed Jessica AVERY [facility] Payers Date Payer Category Payer Medicaid 2019 Medicare 2018 Medicaid MEDICAID [facility] DEPT OF JOB xxxxxxxxxxxx 2018-Present [phone] [address] [place] [address] xxxxxxxxxxxx [id number] 2018 Medicare MEDICARE MEDICAR E PART A AND B xxxxxxxxxxx 2018-Present [phone] [address] [address] [place] [address] xxxxxxxxxxx [id number] 1959 Medicaid [id number] 1961 Medicare [id number] 1960 Unknown [id number] 1960 Unknown [id number] 1958 Unknown [id number] 1958 Unknown [id number] 1958 Unknown [id number] 1958 Unknown [id number] 1960 Unknown [id number] 1960 Unknown [id number] 1960 Unknown [id number] 1960 Unknown [id number] Social History Date Type Detail Facility Start: 11-13-2014 End: 08-18-2019 Tobacco smoking status NHIS Never smoker [place] Start: 08-18-2019 End: 11-02-2019 Alcohol intake Current non-drinker of alcohol (finding) [place] Start: 1960 Sex Assigned At Not on file M [place], [place] Exposure to SARS-CoV -2 (event) Unable to assess [place] Start: 11-13-2014 End: 06-02-2020 Tobacco use and exposure Never used [place], [place] Start: 05-19-2022 End: 05-29-2022 Exposure to SARS-CoV-2 (event) Not sure [place] Start: 11-01-2020 End: 05-29-2022 Alcohol intake Lifetime [facility]-drinker (finding) [facility]: Start: 10-10-2020 End: 10-24-2021 History SDOH Alcohol Frequency 1 [facility]: Start: 10-10-2020 History SDOH Alcohol Std Drinks 98 [employer] Phone: Start: 10-10-2020 History SDOH Social Connections Phone 2 [facility] Phone: Start: 10-10-2020 History SDOH Social Connections Living 7 [facility] Phone: Start: 10-10-2020 History SDOH Physica l Activity DPW 0 [employer] Work Phone: Start: 10-10-2020 End: 10-24-2021 History SDOH Financial 5 [employer] Work Phone: History of Present illness Narrative [...] Patient transferred to wheelchair in room via writer editor and staff. Scat transportation arriving at 1545. Patient is good to return to the nursing home today. SILVINO Ch Patient in bed with family at bed side. Vitals and assessment completed. Vitals stable. Patient on room air. James emptied. Patient repositioned onto other side. Call light within reach. Will continue to monitor. Spoke with the guardian and she is good with the discharge for today. Spoke with the senior living and they want to review the discharge paper work before they accept him back. SILVINO Ch Left a message for the guardian and the senior living to call about the discharge today. SILVINO Ch [facility] Facility/Department: [facility] Speech Language Pathology Dysphagia Treatment NAME:Fer Sandoval : 1960 (61 y.o.) ROOM: [address] [place] [address] ADMISSION DATE: 05/29/2022 PATIENT DIAGNOSIS(ES): Aspiration pneumonia [...] DILATATION performed by Nemesio Mayen MD at [facility] OR EYE SURGERY Bilateral FOOT DEBRIDEMENT Left 07/13/2021 FOOT DEBRIDEMENT INCISION AND DRAINAGE-HALLUX WOUND performed by Can Giordano DPM at [facility] OR UPPER GASTROINTESTINAL ENDOSCOPY N/A 11/02/2019 -bx(esophageal-normal,neg [...] Consistency Presented: Minced & Moist;Pureed;Thin How Presented: MOTION PICTURE PROJECTIONIST-fed/Presented Bolus Acceptance: No impairment Bolus Formation/Control: No impairment Type of Impairment: Mastication Propulsion: No impairment Oral Residue: Less than 10% of bolus;None Dysphagia Diagnosis Dysphagia Diagnosis: Mild oral stage dysphagia;Mild pharyngeal stage dysphagia;Concerns for esophageal stage dysphagia Dysphagia Outcome Severity Scale: Level 3: Moderate dysphagia- Total assisstance, supervision or strategies. Two or more diet consistencies restricted Recommendations Requires MOTION PICTURE PROJECTIONIST Intervention: Yes Diet Solids Recommendation: Minced & Moist Liquid Consistency Recommendation: Thin Compensatory Swallowing Strategies : Alternate solids and liquids;Eat/Feed slowly;Total feed;Small bites/sips;External pacing;Remain upright for 30-45 minutes after meals;Upright as possible for all oral intake Recommended Form of Meds: Crushed in puree as able Therapeutic Interventions: Diet tolerance monitoring;Therapeutic PO trials with MOTION PICTURE PROJECTIONIST;Patient/Family education Frequency of Treatment: 1x daily during [...] does not appear in pain Therapy Time MOTION PICTURE PROJECTIONIST Individual Minutes Time In: 0755 Time Out: [...] family members. Electronically signed: Andreia Stewart M.S., CCC-MOTION PICTURE PROJECTIONIST 05/31/2022 Patient in bed resting at this time. Vitals and assessment completed. Patient on room air. Patient sleeping. Blood pressure stable. Patient awoke upon touching but fell back asleep within seconds after stimulation. Pourer checked patient brief which was clean, dry, and intact. Patient repositioned onto other side. James catheter draining appropriately and was emptied. Will provide oral care after medications administered in pudding. Bed alarm on. Will continue to monitor. Physical Therapy Facility/Department: [facility] Daily Treatment Note NAME: Fer [...] time and he was clean and dry. Pourer positioned patient with a pillow under his [...] and assessment are complete at this time. Pourer updated patient's sister, Deandra, on how patient's day went. Patient is resting in bed watching television. Pourer will turn and change patient throughout the [...] Alba From: Speech Therapy Sender:_Emily Goldstein M.S., CCC-MOTION PICTURE PROJECTIONIST ([facility]) Fer Sandoval current unit [x][facility] [phone] []ICU [phone] Your MBS evaluation order for Fer Cruzley has been completed. Based on the results speech therapy recommends: Minced and moist diet with thin liquids and meds in puree If you agree please enter the new diet order in CarePATH or telephone the nursing unit. Diet will not change without your order. 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 Based on the results speech therapy recommends: Diet upgrade to puree solids and mildly-thick (nectar-thick) liquids. If you agree please enter the new diet order in CarePATH or telephone the nursing unit. Diet will not change without your order. Thank you, Electronically signed by: Andreia Stewart M.S., CCC-MOTION PICTURE PROJECTIONIST [facility] Facility/Department: [facility] Speech Language Pathology Clinical Bedside Swallow Treatment NAME:Fer Sandoval : 1960 (61 y.o.) ROOM: [facility]/0301- ADMISSION DATE: 05/29/2022 PATIENT DIAGNOSIS(ES): [...] DILATATION performed by Nemesio Mayen MD at [facility] OR EYE SURGERY Bilateral FOOT DEBRIDEMENT Left 07/13/2021 FOOT DEBRIDEMENT INCISION AND DRAINAGE-HALLUX WOUND performed by Can Giordano DPM at [facility] OR UPPER GASTROINTESTINAL ENDOSCOPY N/A 11/02/2019 -bx(esophageal-normal,neg H-Pylori)dilation US THYROID BIOPSY 07/26/2020 US THYROID BIOPSY 07/26/2020 [facility] ULTRASOUND Allergies Allergen Reactions Penicillins UNKNOWN REACTION DATE ONSET: 05/29/22 Date of Evaluation: 05/30/2022 Evaluating Therapist: SWAPNA Garzon Dysphagia Diagnosis Dysphagia Diagnosis: Concerns for esophageal stage dysphagia;Suspected needs further assessment;Mild oral stage dysphagia;Mild pharyngeal stage dysphagia Recommended Diet Recommendations: Modified barium swallow study Referral To: GI Diet Solids Recommendation: Pureed Liquid Consistency Recommendation: Mildly Thick ([place]) Recommended Form of Meds: Crushed in puree [...] Impairment Consistency Presented: Mildly Thick;Thin;Pureed How Presented: MOTION PICTURE PROJECTIONIST-fed/Presented Bolus Acceptance: No impairment Bolus Formation/Control: Impaired [...] Recommendation: Pureed Liquid Consistency Recommendation: Mildly Thick ([place]) Compensatory Swallowing Strategies : Alternate solids and liquids;Eat/Feed slowly;Total feed;Small bites/sips;External pacing;Remain upright for 30-45 minutes after meals;Upright as possible for all oral intake Recommended Form of Meds: Crushed in puree as able Therapeutic Interventions: Diet tolerance monitoring;Therapeutic PO trials with MOTION PICTURE PROJECTIONIST;Patient/Family education Frequency of Treatment: 1x daily during [...] does not appear in pain Therapy Time MOTION PICTURE PROJECTIONIST Individual Minutes Time In: 1400 Time Out: [...] inpatient stay. Electronically signed: Andreia Stewart M.S., CCC-MOTION PICTURE PROJECTIONIST 05/30/2022 Dr Smith returned call. She will come see family. Called outpatient with consult for Dr Smith. Per Beckie in outpatient Dr Smith is not in the office until next Saturday, but she is in surgery in [place] today. Pourer called surgery dept and spoke to Beckie, [...] syndrome Nonverbal Nonambulatory Nutrition status: obesity, non-morbid Head Field Hockey Coach consult initiated Hospital Prophylaxis: DVT: Lovenox Stress Ulcer: PPI High risk medications: none Disposition: Discharge plan is pending Gabrielle Delatorre APRN - GLEASON GEAR GENERATOR , HARDWARE INSTALLATION COORDINATOR, DRAWING CHECKER-C Hospitalist Medicine 05/30/2022, 7:52 AM Associated attestation - Jessica Alba MD - 05/30/2022 3:29 PM EDT Attending Supervising Physician s Attestation Statement I have personally evaluated and examined the patient [id number] in conjunction with the nurse practitioner. I [...] Examined and Reviewed plan of care with DRAWING CHECKER. Directions and discussion about care and plans. [...] loss Fluid Accumulation: No significant fluid accumulation Manager French Strength: Not Performed Nutrition Assessment: Inadequate nutrient [...] Anthropometric Measures: Height: 5' 1 (154.9 cm) [place] Body Weight (IBW): 112 lbs (51 kg) [...] Used for Energy Requirements: Current Energy (kcal/day): 4714-2150 (18-20) Weight Used for Protein Requirements: [place] Protein (g/day): 61-71 (1.2-1.4) Method Used for [...] to determine Mehul Hickman RD, LD Contact: [phone] James catheter inserted by LIZY Mcbride. Noted [...] Patient is single and lives in a nursing home in [place]. He uses a wheelchair to get around. Patient requires total assistance with his ADL's. He has daily visits with a nurse. The senior living manages his medications and transportation. 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 His PCP is Dr. Jessica Alba MD. He has medical insurance that helps with medication costs. The discharge plan is to return to the nursing home at this time. He does not have advance directives do to having a legal guardian. DIRECTOR OF STRATEGIC PARTNERSHIPS to monitor and assist with any needs [...] From: Speech Therapy Sender: Andreia Stewart M.S. [facility]-MOTION PICTURE PROJECTIONIST ([facility]) [facility] [phone] []ICU [phone] Your bedside evaluation order for Fer Sandoval has been completed. Based on the results speech therapy recommends: NPO status, Recommend Modified Barium Swallow Study, GI consultation . If you agree please enter the new diet order in CarePATH or telephone the nursing unit. Diet will not change without your order. Thank you, Electronically signed by: Andreia Stewart M.S. [facility]-MOTION PICTURE PROJECTIONIST [facility] Facility/Department: [facility] Speech Language Pathology Clinical Bedside Swallow Evaluation NAME:Fer Sandoval : 1960 (61 y.o.) ROOM: [facility]/030-01 ADMISSION DATE: 05/29/2022 PATIENT DIAGNOSIS(ES): Aspiration pneumonia [...] DILATATION performed by Nemesio Mayen MD at [facility] OR EYE SURGERY Bilateral FOOT DEBRIDEMENT Left 07/13/2021 FOOT DEBRIDEMENT INCISION AND DRAINAGE-HALLUX WOUND performed by Can Giordano DPM at [facility] OR UPPER GASTROINTESTINAL ENDOSCOPY N/A 11/02/2019 -bx(esophageal-normal,neg H-Pylori)dilation US THYROID BIOPSY 07/26/2020 US THYROID BIOPSY 07/26/2020 [facility] ULTRASOUND Allergies Allergen Reactions Penicillins UNKNOWN REACTION [...] to tolerate any PO safely Recommendations Requires MOTION PICTURE PROJECTIONIST Intervention: Yes Recommendations: NPO;Modified barium swallow study [...] does not appear in pain Therapy Time MOTION PICTURE PROJECTIONIST Individual Minutes Time In: 1458 Time Out: [...] 3 assist. documented in this encounter [employer] Phone: Hospital Discharge instructions 05-31-2022 Discharge Instr [...] applesauce or pudding. [facility]: History of Present illness Narrative 07-13-2021 Linda Carrillo RN - 07/13/2021 11:11 AM Radha Chopra RN - 07/11/2021 4:13 PM EDT Note Date & Type Note Facility 07-13-2021 History of Present illness Narrative 1028 Dr. Giordano spoke with caregiver and sister. [...] reviewed and faxed to to caregiver at [facility]. documented in this encounter [employer] Phone: History of Present illness Narrative 11-02-2019 [...] Jennifer Carrillo RN documented in this encounter [employer] Phone: Evaluation note Note Date & Type Note Facility Evaluation note Diagnosis Contusion of right hand, initial encounter- Primary Injury of head, initial encounter Contusion of face, initial encounter documented in this encounter [employer] Phone: Evaluation note Note Date & Type Note Facility Evaluation note Diagnosis Dysphagia Dysphagia, unspecified documented in this encounter [employer] Phone: Evaluation note Note Date & Type Note Facility Evaluation note Diagnosis Aspiration pneumonia due to gastric secretions, unspecified laterality, unspecified part of lung (HCC)- Primary COPD exacerbation (HCC) Obstructive chronic bronchitis with exacerbation Down's syndrome documented in this encounter [employer] [employer] [facility] Phone: Hospital Discharge instructions Instructions Note Date [...] surgeon in . documented in this encounter [employer] Phone: Hospital Discharge instructions Attachments Note Date & Type Note Facility Hospital Discharge instructions The following attachments cannot be sent through Care Everywhere.Contusion: Hand ([place])Head Injury: Closed: General Info ([place])documented in this encounter [employer] Phone: Hospital Discharge instructions Instructions Note Date [...] GI clinic staff. 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 Advance Directives and Living Will Power of Activity Assistant Latest Code Status on File Code Status Date Activated Date Inactivated Comments Full Code 04/08/2016 7:01 PM 04/11/2016 9:06 PM Documents on File Type Date Recorded 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 long term care phlebotomist goals Time Frame for long term care phlebotomist goals : 4 weeks jail goal 1: Pt/pt's caregivers will be instructed in gait training with RW over thresholds/surface changes and through doorways to decrease hesitancy and improve pt confidence with gait. jail goal 2: Pt will ambulate >/= 80ft with RW and CGA to improve safety with household ambulation. Patient goals : Per caregivers: To be able to walk Minutes Tracking: Time In: 1020 Time Out: 1121 Minutes: 61 Timed Code Treatment Minutes: 59 Minutes Myla Campbell PT, DPT 03/01/2020 documented in this encounter* Nehemias Lombardi PTA - 03/11/2020 8:45 AM EDT [facility] Outpatient Physical Therapy Daily Note Patient: Fer Sandoval : 1960 CSN #: [id number] Referring Practitioner: Jessica Alba MD Referral Date : 02/24/20 Date: 03/11/2020 Diagnosis: OA of both knees, M17.0 Treatment Diagnosis: difficulty walking Onset Date: 02/24/20 PT Insurance Information: Medcare / Medicaid Total # of Visits Approved: 6 Per Physician Order Total # of Visits to Date: 2 No Show: 0 Canceled Appointment: 0 Pre-Treatment Pain: 0/10 Subjective: Pt hvac designer states Pt woke up very early today and it took 3 of them to move him into a w/c to get him here. Pt hvac designer states he has good days and bad [...] Educated care takers on ex/ activities for senior living. Pt verbalized/demonstrated good understanding: [x] Yes [] [...] []Not met []Met []Partially met []Not met Automotive Sales Representative Goals - Time Frame for jail goals : 4 weeks jail goal 1: Pt/pt's caregivers will be instructed in gait training with RW over thresholds/surface changes and through doorways to decrease hesitancy and improve pt confidence with gait. []Met []Partially met [x]Not met jail goal 2: Pt will ambulate >/= 80ft [...] Cecile Castanon - 03/17/2020 9:30 AM EDT [facility] Inpatient/Observation/Outpatient Rehabilitation Date: 03/17/2020 Patient Name: Fer [...] Garcia, PT - 11/17/2020 10:00 AM EST [facility] Outpatient Physical Therapy Evaluation Date: 11/17/2020 Patient: Fer Sandoval : 1960 CSN #: [id number] Referring Practitioner: Jessica Alba MD Referral Date [...] ability for transfers. He recently moved to [facility] from a senior living. Additional Pertinent Hx: Down syndrome, severe OA [...] Campbell, PT - 03/23/2020 2:45 PM EDT [facility] Outpatient Physical Therapy Daily Note Patient: Fer Sandoval : 1960 CSN #: [id number] Referring Practitioner: Jessica Alba MD Referral Date : 02/24/20 Date: 03/23/2020 Diagnosis: OA of both knees, M17.0 Treatment Diagnosis: difficulty walking Onset Date: 02/24/20 PT Insurance Information: Medicae/Medicaid Total # of Visits Approved: 6 Per Physician Order Total # of Visits to Date: 3 No Show: 0 Canceled Appointment: 1 Pre-Treatment Pain: 0/10 Subjective: Pt's hvac designer states pt did a lot of walking last night without walker. Experiential Therapist alsostates pt tends to push walker away [...] []Not met []Met []Partially met []Not met Automotive Sales Representative Goals - Time Frame for jail goals : 4 weeks jail goal 1: Pt/pt's caregivers will be instructed in gait training with RW over thresholds/surface changes and through doorways to decrease hesitancy and improve pt confidence with gait. - not met []Met []Partially met []Not met jail goal 2: Pt will ambulate >/= 80ft [...] your doctor if you can take an saza-rsu-fgyldxr medicine. If you think your pain medicine [...] Where can you learn more? Go to [email or web address] and sign in to your [employer] account. Enter O887 in the Search Health Information box to learn more about Fine-Needle Thyroid Biopsy: What to Expect at Home. If you do not have an account, please click on the Sign Up Now link. [phone] [employer]. Care instructions adapted under license by [employer] [facility]. This care instruction is for use with your licensed healthcare professional. If you have questions about amedical condition or this instruction, always ask your healthcare professional. [employer] disclaims any warranty or liability for your use of this information. Content Version: 10.9.421430; Current as of: August 26, 2015 documented in this encounter Reason for Referral Status Reason Specialty Diagnoses / Procedures Referre d By Contact Referred To Contact Closed Radiology Diagnoses Thyromegaly Procedures US HEAD NECK SOFT TISSUE THYROID Jessica Alba MD [address] [place] [address] [facility] Ultrasound [address] [place] [address] Status Reason Specialty Diagnoses / Procedures Referre d By Contact Referred To Contact Open Radiology Diagnoses Dysphagia, unspecified type Thyromegaly Procedures US BIOPSY THYROID Jessica Alba MD [address] [place] [address] Hospital Course * Myla Campbell, PT - 03/23/2020 2:45 PM EDT [facility] Outpatient Physical Therapy Discharge Summary Patient: Fer Sandoval : 1960 CSN #: [id number] Referring physician: No admitting provider for patient [...] occasional VC from therapist. - not met jail goals Time Frame for long term care phlebotomist goals : 4 weeks jail goal 1: Pt/pt's caregivers will be instructed in gait training with RW over thresholds/surface changes and through doorways to decrease hesitancy and improve pt confidence with gait. - not met jail goal 2: Pt will ambulate >/= 80ft [...] section and content) DATE CREATED AUTHOR 06/30/[address] [facility] DATE CREATED AUTHOR AUTHOR'S ORGANIZ ATION 09/07/2019 [facility] DATE CREATED AUTHOR AUTHOR'S ORGANIZ ATION 01/13/2022 [facility] DATE CREATED AUTHOR AUTHOR'S ORGANIZ ATION 06/08/2022 [facility] Reason for Visit (unrecogniz ed section and content) Status Reason Specialty Diagnoses / Procedures Referred By Contact Referred To Contact Open Specialty Services Required Physical Therapy Diagnoses Primary osteoarthritis of both knees Jessica Alba MD [address] [place] [address] [facility] Physical Therapy [address] [place] [address] Reason Comments Facial Droop Right facial droop o nset today. Status Reason Specialty Diagnoses / Procedures Referre d By Contact Referred To Contact Closed Radiology Diagnoses Thyromegaly Procedures US HEAD NECK SOFT TISSUE THYROID Jessica Alba MD [address] [place] [address] [facility] [address] [place] [address] Status Reason Specialty Diagnoses / Procedures Referre d By Contact Referred To Contact Open Radiology Diagnoses Dysphagia, unspecified type Thyromegaly Procedures US BIOPSY THYROID Jessica Alba MD [address] [place] [address] Status Reason Specialty Diagnoses / Procedures Referred By Contact Referred To Contact Open Specialty Services Required Physical Therapy Diagnoses Generalized osteoarthritis of multiple sites Primary osteoarthritis of both knees Jessica Alba MD [address] [place] [address] [facility] Physical Therapy [address] [place] [address] Reason Comments Foreign Body In throat, 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 Status Reason Specialty Diagnoses / Procedures Referre d By Contact Referred To Contact Diagnoses Left hallux osteomyelitis (HCC) LEFT HALLUX ULCER/WOUND Procedures AL DEBRIDEMENT, SKIN, SUB-Q TISSUE,MUSCLE,=<20 SQ CM FOOT DEBRIDEMENT INCISION AND DRAINAGE-HALLUX WOUND Can Giordano, DPM [address] [facility] [place] [address] [facility] Reason Comments Hand Injury Pt from senior living- pt tipped himself and wheel chair over hitting forehead and right hand Head Injury Status Reason Specialty Diagnoses / Procedures Re ferred By Contact Referred To Contact Diagnoses DYSPHAGIA Procedures AL ESOPHAGOGASTRODUODENOSCOPY TRANSORAL DIAGNOSTIC EGD ESOPHAGOGASTRODUODENOSCOPY Nemesio Mayen MD [address] [place] [address] [place] [address] [facility] Reason Comments Wheezing Cough Low SpO2 at [...] ider: Anisa Gibbons RN)1050 (Stopped - Provider: Linda Carrillo RN) PRN Medication Order 07/11/2021 07/12/2021 [...] No 1235 (Given - Provider: Laureen Crowell, [facility]) ipratropium-albuterol (DUONEB) nebulizer solution 1 ampule [...] 1500 1522 (New Bag - Provider: Trena gR RN) 0418 (New Bag - Provider: Willow [...] Care Teams (unrecognized sec tion and content) Equipment Operation Instructor Relationship Specialty Start Date End Date Jessica Alba MD [address] [place] [address], [facility] [place] [address] PCP - General 10/17/12 FOR [...] BE BASED ON THE PRIMARY CLINICAL RECORDS. [facility] [employer] [facility]. provides no warranty or guarantee of the accuracy or completeness of information in this document.
--- NOTE | 2023-10-13 12:38 | P.HP_ITS ---
H&P: HPI History of Present Illness Chief complaint: GENERAL ILLNESS Narrative: Patient was brought into the emergency with increasing cough and shortness of breath, hypoxia at his current facility. Saturations were in the mid 80s. He occasionally wears oxygen at bedtime but not needing it during the day. So the hypoxia noted at his facility is new. Recent discharge from the hospital with pneumonia approximately 3 weeks ago. Family states he really had a significant cough since that time but worse in the last 24 hours. Review of Systems ROS Status of ROS 10 or more systems reviewed and unremark able except as noted in history and below [facility] Medical History (Updated 10/13/23 @ 11:30 by Nallely Diaz MD) Acute hypoxic respiratory failure ?J96.01 - Acute respiratory failure with hypoxia (ICD-10) Dehydration ?E86.0 - Dehydration (ICD-10) Community acquired pneumonia ?J18.9 - Pneumonia, unspecified organism (ICD-10) Dysphagia ?R13.10 - Dysphagia, unspecified (ICD-10) Obesity ?E66.9 - Obesity, unspecified (ICD-10) Trochanteric bursitis of right hip ?M70.61 - Trochanteric bursitis, right hip (ICD-10) Umbilical hernia ?K42.9 - Umbilical hernia without obstruction or gangrene (ICD-10) BPH (benign prostatic hyperplasia) ?N40.0 - Benign prostatic hyperplasia without lower urinary tract symptoms (ICD-10) Hyperlipidemia ?E78.5 - Hyperlipidemia, unspecified (ICD-10) Cataract ?H26.9 - Unspecified cataract (ICD-10) Hearing loss ?H91.90 - Unspecified hearing loss, unspecified ear (ICD-10) Blindness of left eye ?H54.40 - Blindness, one eye, unspecified eye (ICD-10) Arthritis ?M19.90 - Unspecified osteoarthritis, unspecified site (ICD-10) Down's syndrome ?Q90.9 - Down syndrome, unspecified (ICD-10) Social History Smoking status: Unknown if ever smoked Meds Home Medications and Allergies Home Medications Medication Instructions Recorded Confirmed Type albuterol sulfate 1.25 mg/3 mL 1.25 mg inhalation Q8H PRN 09/19/23 10/13/23 History solution for nebulization shortness of breath or wheezing ammonium lactate 12 % topical cream 1 applic topical DAILY 09/19/23 10/13/23 History dexamethasone 4 mg tablet 4 mg PO DAILY 09/19/23 10/13/23 History docusate sodium 100 mg capsule 100 mg PO DAILY 09/19/23 10/13/23 History (Colace) food supplemt, lactose-reduced 1 ea PO BID 09/19/23 09/19/23 History (Ensure oral liquid) guaifenesin 100 mg/5 mL oral 200 mg PO Q4H PRN cough 09/19/23 09/19/23 History liquid (Chest Congestion Relief) hyoscyamine sulfate 0.125 mg 0.125 mg PO Q8H 09/19/23 10/13/23 History disintegrating tablet lanolin alcohols-mineral 1 applic topical BID 09/19/23 10/13/23 History oil-w.petrolatum-ceresin topical cream (Eucerin topical cream) loratadine 10 mg tablet 10 mg PO DAILY 09/19/23 10/13/23 History menthol 0.44 %-zinc oxide 20.6 % 1 applic topical TID-QID PRN skin 09/19/23 10/13/23 History topical ointment (Calmoseptine) irritation nystatin 100,000 unit/gram topical 1 applic topical BID 09/19/23 10/13/23 History powder omeprazole 20 mg capsule,delayed 20 mg PO BID 09/19/23 10/13/23 History release tamsulosin 0.4 mg capsule 0.4 mg PO DAILY 09/19/23 10/13/23 History Allergies Allergy/AdvReac Type Severity Reaction Status Date / Time Penicillins Allergy Verified 09/19/23 09:41 Exam Constitutional Vital Signs, click to edit/add: Last Vital Signs Temp 98.4 F 10/13/23 09:39 Pulse 67 10/13/23 11:40 Resp 18 10/13/23 11:48 BP 116/78 10/13/23 11:48 Pulse Ox 93 L 10/13/23 11:40 O2 Del Method Nasal Cannula 10/13/23 10:02 O2 Flow Rate 2 10/13/23 10:02 Common normals: no apparent distress Orientation/consciousness: not awake (opens eyes to voice) Other: Baseline MRDD, non-verbal, non-ambulatory HENMT Common normals: normocephalic and head/scalp atraumatic Mouth: moist mucous membranes abnormal Details: parched (Improving) Eye Common normals: PERRL, EOMs intact bilaterally, conjunctivae normal and no scleral icterus General eye: normal appearance of both eyes Chest Common normals: inspection of chest normal Chest: symmetrical chest wall rise Respiratory Common normals: normal respiratory effort and no use of accessory muscles Auscultation: rhonchi (Scattered throughout, greatest on R) Cardio Common normals: regular rate, regular rhythm, S1 normal heart sound, S2 normal heart sound, no murmurs and peripheral pulses 2+ throughout GI Common normals: Normal to inspection, nondistended, normoactive bowel sounds present, soft to palpation, non-tender and no hepatosplenomegaly Bladder/kidney exam: bladder normal to palpation Extremity Common normals: normal to inspection and no calf tenderness General: no clubbing, no cyanosis and no edema Neuro Common normals: moves all extremities Psych Common normals: mental status grossly normal Results Labs Labs: Short CBC 10/13/23 Range/Units 10:40 WBC 8.1 (4.0-11.0) 10^3/uL Hgb 13.8 L (14.0-18.0) g/dL Hct 43.1 (42.0-54.0) % Plt Count 144 L (150-450) 10^3/uL BMP 10/13/23 10:40 Sodium 142 Potassium 3.5 Chloride 104 Carbon Dioxide 30.3 BUN 18.0 Creatinine 0.85 Glucose 86 Calcium 8.8 Liver Function 10/13/23 Range/Units 10:40 Total Bilirubin 0.5 (0.2-1.0) mg/dL AST 13 L (15-37) U/L ALT 16 (16-63) U/L Alkaline Phosphatase 79 (46-116) U/L Albumin 2.6 L (3.4-5.0) g/dL Assessment and Plan Assessment and Plan (1) Pneumonia: Plan Increasing shortness of breath with hypoxia at facility with saturations in the mid 80s on room air. Improved here on 2 L. No leukocytosis, does have some thrombocytopenia-aerosols, steroids, antibiotics. Broad-spectrum to cover facility acquired pneumonia. Right lower lobe. Check lactate. Sedrick noted on telemetry-check cardiac markers, consider echo, check BNP. Down syndrome- Mild protein calorie malnutrition-diet supplement Iron deficiency anemia-follow daily With recent discharge with the pneumonia and really not recovered from that and significant hypoxia patient likely here 3 to 4 days for IV antibiotics. Unable to obtain sputum culture based on Down syndrome. Start patient off as inpatient status
[2023-10-13 13:28] LABS: Lactate/Lactic Acid 1.6 mmol/L (0.4-2.0)
[2023-10-13 13:45] LABS: Troponin I High Sensitivity 6.8 pg/mL (4.0-76.1)
[2023-10-13] MEDS: CLINDAMYCIN PHOSPHATE/D5W 600 MG/50 ML PIGGYBACK 100 MG IV ×2 (14:02→21:44)
[2023-10-13] MEDS: HYOSCYAMINE SULFATE 0.125 MG TAB.SUBL PO ×2 (14:02→23:02)
[2023-10-13] MEDS: LACTOSE -REDUCED (ENSURE ORIGINAL 237 ML LIQUID) PO ×2 (14:02→21:45)
[2023-10-13] MEDS: CEFTAZIDIME 2,000 MG in 0.9 % SODIUM CHLORIDE 100 ML 200 MG IV ×2 (14:43→22:54)
[2023-10-13 16:01] LABS: SARS-CoV-2 NAA NOT DETECTED (NOT DETECTE)
--- NOTE | 2023-10-13 16:29 | RESP.RT ---
Nsg had just moved pt around to change and clean, so SpO2 dropped. increased to 3L
--- NOTE | 2023-10-13 16:30 | RESP.RT ---
Pt unable to do the PEP device
[2023-10-13] MEDS: OMEPRAZOLE 20 MG CAPSULE.DR PO (21:46)
[2023-10-13] MEDS: NYSTATIN 15 GM POWDER 1 APPLIC TOPICAL (21:46)
[2023-10-14] VITALS (19 sets, daily range): BP systolic 116–130; BP diastolic 70–78; PULSE 55–80; RESP 16–20; TEMP 36.4–36.8; O2SAT 92–98
[2023-10-14] MEDS: CLINDAMYCIN PHOSPHATE/D5W 600 MG/50 ML PIGGYBACK 100 MG IV ×4 (01:34→21:43)
[2023-10-14] MEDS: IPRATROPIUM/ALBUTEROL SULFATE 3 ML AMPUL.NEB IH ×3 (04:36→22:33)
[2023-10-14 06:32] LABS: Hematocrit 42.3 % (42.0-54.0); Hemoglobin 13.5 g/dL (14.0-18.0); Mean Corpuscular HGB Conc 31.9 g/dL (29.9-35.2); Mean Corpuscular Hemoglobin 32.5 pg (25.9-34.0); Mean Corpuscular Volume 101.7 fL (80.0-94.0); Mean Platelet Volume 10.6 fL (9.5-13.5); Platelet Count 148 10^3/uL (150-450); Red Blood Count 4.16 10^6/uL (4.70-6.10); Red Cell Distribution Width 14.3 % (11.0-15.0); White Blood Count 8.8 10^3/uL (4.0-11.0)
[2023-10-14] MEDS: HYOSCYAMINE SULFATE 0.125 MG TAB.SUBL PO ×3 (06:43→21:43)
[2023-10-14] MEDS: METHYLPREDNISOLONE SOD SUCC PF 125 MG/2 ML VIAL IVP (06:44)
[2023-10-14] MEDS: CEFTAZIDIME 2,000 MG in 0.9 % SODIUM CHLORIDE 100 ML 200 MG IV ×2 (06:44→22:43)
[2023-10-14 07:01] LABS: Alanine Aminotransferase 18 U/L (16-63); Albumin Globulin Ratio 0.7; Albumin Level 2.5 g/dL (3.4-5.0); Alkaline Phosphatase 79 U/L (46-116); Anion Gap 11.4; Aspartate Amino Transferase 10 U/L (15-37); BUN Creatinine Ratio 22.4; Bilirubin Total 0.4 mg/dL (0.2-1.0); Calcium 9.1 mg/dL (8.5-10.1); Carbon Dioxide 29.3 mmol/L (21.0-32.0); Chloride 106 mmol/L (98-107); Estimated GFR (African America >60 (>=60); Estimated GFR (Non-African Ame >60 (>=60); Globulin 3.8 g/dL; Glucose 189 mg/dL (74-106); Magnesium 2.1 mg/dL (1.8-2.4); Potassium 3.7 mmol/L (3.5-5.1); Sodium 143 mmol/L (136-145); Total Protein 6.3 g/dL (6.4-8.2)
--- NOTE | 2023-10-14 08:33 | P.PN_ITS ---
Progress Note: Subjective Subjective Interval history: sleepy but arousable, non verbal Exam Constitutional Vital Signs, click to edit/add: Last Vital Signs Temp 98.3 F 10/14/23 04:44 Pulse 74 10/14/23 08:09 Resp 18 10/14/23 04:44 BP 130/70 10/14/23 04:44 Pulse Ox 92 L 10/14/23 04:44 O2 Del Method Nasal Cannula 10/14/23 04:44 O2 Flow Rate 3 10/14/23 04:44 Common normals: no apparent distress Orientation/consciousness: not awake (opens eyes to voice) Other: Baseline MRDD, non-verbal, non-ambulatory HENMT Common normals: normocephalic and head/scalp atraumatic Mouth: moist mucous membranes abnormal Details: parched (Improving) Eye Common normals: PERRL, EOMs intact bilaterally, conjunctivae normal and no scleral icterus General eye: normal appearance of both eyes Chest Common normals: inspection of chest normal Chest: symmetrical chest wall rise Respiratory Common normals: normal respiratory effort and no use of accessory muscles Auscultation: rhonchi (Scattered throughout, greatest on R) Cardio Common normals: regular rate, regular rhythm, S1 normal heart sound, S2 normal heart sound, no murmurs and peripheral pulses 2+ throughout GI Common normals: Normal to inspection, nondistended, normoactive bowel sounds present, soft to palpation, non-tender and no hepatosplenomegaly Bladder/kidney exam: bladder normal to palpation Extremity Common normals: normal to inspection and no calf tenderness General: no clubbing, no cyanosis and no edema Neuro Common normals: moves all extremities Psych Common normals: mental status grossly normal Progress Note: Objective Labs Labs: Short CBC 10/13/23 10/14/23 Range/Units 10:40 05:38 WBC 8.1 8.8 (4.0-11.0) 10^3/uL Hgb 13.8 L 13.5 L (14.0-18.0) g/dL Hct 43.1 42.3 (42.0-54.0) % Plt Count 144 L 148 L (150-450) 10^3/uL BMP 10/13/23 10/14/23 10:40 05:38 Sodium 142 143 Potassium 3.5 3.7 Chloride 104 106 Carbon Dioxide 30.3 29.3 BUN 18.0 17.0 Creatinine 0.85 0.76 Glucose 86 189 H Calcium 8.8 9.1 Liver Function 10/13/23 10/14/23 Range/Units 10:40 05:38 Total Bilirubin 0.5 0.4 (0.2-1.0) mg/dL AST 13 L 10 L (15-37) U/L ALT 16 18 (16-63) U/L Alkaline Phosphatase 79 79 (46-116) U/L Albumin 2.6 L 2.5 L (3.4-5.0) g/dL Progress Note: A&P Assessment and Plan (1) Pneumonia: Plan Increasing shortness of breath with hypoxia at facility with saturations in the mid 80s on room air. Improved here on 2 L. No leukocytosis, does have some thrombocytopenia-aerosols, steroids, antibiotics. Broad-spectrum to cover f acility acquired pneumonia. Right lower lobe. Check lactate. He only wears O2 at hs for sleep apnea - no daytime o2 requirement - need to get back to that baseline before d/c - Bigeminy noted on telemetry-check cardiac markers, consider echo, check BNP. Down syndrome- Mild protein calorie malnutrition-diet supplement Iron deficiency anemia-follow daily With recent discharge with the pneumonia and really not recovered from that and significant hypoxia patient likely here 3 to 4 days for IV antibiotics. Unable to obtain sputum culture based on Down syndrome. Start patient off as inpatient status
[2023-10-14 08:37] LABS: Band Neutrophils Absolute 0.1 10^3/uL (0.0-0.3); Lymphocytes Absolute Manual 0.17 10^3/uL (1.20-3.80); Monocytes Absolute Manual 0.17 10^3/uL (0.30-0.80); Segmented Neut Absolute Manual 8.36 10^3/uL (1.4-6.5)
[2023-10-14] MEDS: NYSTATIN 15 GM POWDER 1 APPLIC TOPICAL ×2 (09:36→21:48)
[2023-10-14] MEDS: DOCUSATE SODIUM 100 MG CAPSULE PO (09:37)
[2023-10-14] MEDS: LACTOSE -REDUCED (ENSURE ORIGINAL 237 ML LIQUID) PO (09:37)
[2023-10-14] MEDS: CETIRIZINE HCL 10 MG TABLET PO (09:37)
[2023-10-14] MEDS: OMEPRAZOLE 20 MG CAPSULE.DR PO ×2 (09:38→21:43)
[2023-10-14] MEDS: TAMSULOSIN HCL 0.4 MG CAPSULE PO (09:38)
--- NOTE | 2023-10-14 09:41 | CM.NOTE ---
Rounds made with Dr. Torres. No plan for discharge today.
[2023-10-14] MEDS: METHYLPREDNISOLONE SOD SUCC PF 125 MG/2 ML VIAL 60 MG IVP ×2 (11:36→17:12)
--- NOTE | 2023-10-14 13:32 | SWNOTE1 ---
PANFILO received message to reach out to field administrator from [facility]. PANFILO called the field administrator Radha and spoke with her. The staff at [facility] had concerns and wanted to make sure pt returning to [facility] was in the best interest of patient. The [facility] does have 24/7 staff, but it is not nursing. Concerns about if pt should return or if he needs more care than they can offer. She expressed they will take him back but want what is best for patient. Radha stated she was waiting to see medically if he will need more care than what he was getting at [facility] and she plans on coming tomorrow morning when the doctor is here. PANFILO asked about family and she stated pt does have a sister and they have not spoke with her yet, she is the guardian. They were waiting to see how pt was doing medically. Pt was on hospice awhile back, but signed off because he was at baseline. SW to reach out to Radha tomorrow after she speaks with doctor. Pt is not mobile at the [facility] and is non-verbal. 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 PANFILO let nursing know.
--- NOTE | 2023-10-14 13:59 | SWNOTE1 ---
SW did speak with pt's sister in room. Pt has been at [facility] for 4 years, previously he was at [facility] in [place]. PANFILO asked if she was happy with his care at [facility] and she voiced she was and stated everywhere is short staffed. PANFILO asked if she had considered packaging sales consultant at [facility] and she was not sure as she was not pleased with [place]. PANFILO informed the pt's sister that SW is speaking to the clinical trials systems administrator at [facility] tomorrow to discuss dc plans. PANFILO reviewed IMM form with pt's sister, she voiced understanding and had no questions. Pt's sister signed form, original given to pt's sister and copy placed on chart.
[2023-10-14] MEDS: CEFTAZIDIME 2,000 MG in 0.9 % SODIUM CHLORIDE 100 ML 100 MG IV (14:28)
--- NOTE | 2023-10-14 22:33 | RESP.RT ---
decreased down to 2L
[2023-10-15] VITALS (15 sets, daily range): BP systolic 103–116; BP diastolic 67–71; PULSE 54–77; RESP 14–22; TEMP 36.4–37; O2SAT 87–97
[2023-10-15] MEDS: METHYLPREDNISOLONE SOD SUCC PF 125 MG/2 ML VIAL 60 MG IVP (00:34)
[2023-10-15] MEDS: CLINDAMYCIN PHOSPHATE/D5W 600 MG/50 ML PIGGYBACK 100 MG IV ×4 (02:31→19:34)
[2023-10-15] MEDS: IPRATROPIUM/ALBUTEROL SULFATE 3 ML AMPUL.NEB IH ×4 (04:32→23:13)
[2023-10-15 05:10] LABS: Basophils Percent Auto 0.1 % (0.2-2.0); Hematocrit 41.3 % (42.0-54.0); Hemoglobin 13.2 g/dL (14.0-18.0); Immature Granulocytes Abs Auto 0.09 10^3/uL (0.00-0.03); Immature Granulocytes Pct Auto 0.6 % (0.0-0.5); Lymphocytes Absolute Auto 0.5 10^3/uL (1.2-3.8); Lymphocytes Percent Auto 2.9 % (20.5-60.0); Mean Corpuscular Hemoglobin 33.2 pg (25.9-34.0); Mean Corpuscular Volume 103.8 fL (80.0-94.0); Mean Platelet Volume 10.2 fL (9.5-13.5); Monocytes Absolute Auto 0.6 10^3/uL (0.3-0.8); Monocytes Percent Auto 3.5 % (1.7-12.0); Neutrophils Absolute Auto 14.6 10^3/uL (1.4-6.5); Neutrophils Percent Auto 92.9 % (43.0-75.0); Platelet Count 154 10^3/uL (150-450); Red Blood Count 3.98 10^6/uL (4.70-6.10); Red Cell Distribution Width 14.6 % (11.0-15.0); White Blood Count 15.7 10^3/uL (4.0-11.0)
[2023-10-15 05:26] LABS: Alanine Aminotransferase 19 U/L (16-63); Albumin Globulin Ratio 0.6; Albumin Level 2.4 g/dL (3.4-5.0); Alkaline Phosphatase 75 U/L (46-116); Anion Gap 9.8; Aspartate Amino Transferase 12 U/L (15-37); BUN Creatinine Ratio 16.7; Bilirubin Total 0.2 mg/dL (0.2-1.0); Calcium 8.7 mg/dL (8.5-10.1); Carbon Dioxide 30.2 mmol/L (21.0-32.0); Chloride 110 mmol/L (98-107); Estimated GFR (African America >60 (>=60); Estimated GFR (Non-African Ame >60 (>=60); Globulin 3.7 g/dL; Glucose 156 mg/dL (74-106); Magnesium 2.2 mg/dL (1.8-2.4); Sodium 146 mmol/L (136-145); Total Protein 6.1 g/dL (6.4-8.2)
[2023-10-15] MEDS: HYOSCYAMINE SULFATE 0.125 MG TAB.SUBL PO ×3 (05:47→22:11)
[2023-10-15] MEDS: CEFTAZIDIME 2,000 MG in 0.9 % SODIUM CHLORIDE 100 ML 200 MG IV ×3 (06:30→22:11)
[2023-10-15] MEDS: METHYLPREDNISOLONE SOD SUCC PF 125 MG/2 ML VIAL 40 MG IVP ×3 (07:11→19:35)
[2023-10-15] MEDS: DOCUSATE SODIUM 100 MG CAPSULE PO (08:47)
[2023-10-15] MEDS: OMEPRAZOLE 20 MG CAPSULE.DR PO ×2 (08:47→22:10)
[2023-10-15] MEDS: CETIRIZINE HCL 10 MG TABLET PO (08:47)
[2023-10-15] MEDS: TAMSULOSIN HCL 0.4 MG CAPSULE PO (08:47)
[2023-10-15] MEDS: NYSTATIN 15 GM POWDER 1 APPLIC TOPICAL ×2 (08:48→22:11)
--- NOTE | 2023-10-15 10:12 | P.PN_ITS ---
Progress Note: Subjective Subjective Interval history: Unchanged interval exam, still sleepy but arousable. Nonverbal Exam Constitutional Vital Signs, click to edit/add: Last Vital Signs Temp 97.6 F 10/15/23 05:58 Pulse 65 10/15/23 08:00 Resp 18 10/15/23 05:58 BP 116/71 10/15/23 05:58 Pulse Ox 97 10/15/23 05:58 O2 Del Method Nasal Cannula 10/15/23 05:58 O2 Flow Rate 2 10/15/23 05:58 Common normals: no apparent distress Orientation/consciousness: not awake (opens eyes to voice) Other: Baseline MRDD, non-verbal, non-ambulatory HENMT Common normals: normocephalic and head/scalp atraumatic Mouth: moist mucous membranes abnormal Details: parched (Improving) Chest Common normals: inspection of chest normal Chest: symmetrical chest wall rise Respiratory Common normals: normal respiratory effort and no use of accessory muscles Auscultation: rhonchi (Scattered throughout, greatest on R) Cardio Common normals: regular rate, regular rhythm and no murmurs GI Common normals: Normal to inspection, nondistended, normoactive bowel sounds present Extremity Common normals: normal to inspection and no calf tenderness General: no clubbing, no cyanosis and no edema Neuro Common normals: moves all extremities Psych Common normals: mental status grossly normal Progress Note: Objective Labs Labs: Short CBC 10/15/23 Range/Units 04:58 WBC 15.7 H (4.0-11.0) 10^3/uL Hgb 13.2 L (14.0-18.0) g/dL Hct 41.3 L (42.0-54.0) % Plt Count 154 (150-450) 10^3/uL BMP 10/15/23 04:58 Sodium 146 H Potassium 4.0 Chloride 110 H Carbon Dioxide 30.2 BUN 17.0 Creatinine 1.02 Glucose 156 H Calcium 8.7 Liver Function 10/15/23 Range/Units 04:58 Total Bilirubin 0.2 (0.2-1.0) mg/dL AST 12 L (15-37) U/L ALT 19 (16-63) U/L Alkaline Phosphatase 75 (46-116) U/L Albumin 2.4 L (3.4-5.0) g/dL Progress Note: A&P Assessment and Plan (1) Pneumonia: Plan Increasing shortness of breath with hypoxia at facility with saturations in the mid 80s on room air. Improved here on 2 L. No leukocytosis, does have some thrombocytopenia-aerosols, steroids, antibiotics. Broad-spectrum to cover facility acquired pneumonia. Right lower lobe. Try to wean him down to supplemental oxygen just at bedtime. If he can maintain that throughout the co urse of the day, possible discharge tomorrow Bigeminy noted on telemetry-check cardiac markers, consider echo, check BNP. Down syndrome- Mild protein calorie malnutrition-diet supplement Iron deficiency anemia-follow daily At least 1 more day in the hospital, possibly 2 depending on results of weaning supplemental oxygen.
--- NOTE | 2023-10-15 13:53 | SWNOTE1 ---
PANFILO called active directory systems administrator, Radha, to make sure plan is for pt to return to [facility], had to leave message.
--- NOTE | 2023-10-15 19:54 | PC.NURSE ---
pt non-verbal; RN unable to assess orientation
[2023-10-15] MEDS: LACTOSE -REDUCED (ENSURE ORIGINAL 237 ML LIQUID) PO (22:11)
[2023-10-16] MEDS: METHYLPREDNISOLONE SOD SUCC PF 125 MG/2 ML VIAL 40 MG IVP ×2 (01:25→10:36)
[2023-10-16] MEDS: CLINDAMYCIN PHOSPHATE/D5W 600 MG/50 ML PIGGYBACK 100 MG IV (01:25)
[2023-10-16 04:09] VITALS: PULSE 63; RESP 12; O2SAT 96
[2023-10-16] MEDS: IPRATROPIUM/ALBUTEROL SULFATE 3 ML AMPUL.NEB IH ×2 (04:09→11:39)
[2023-10-16 04:19] VITALS: PULSE 61; RESP 14; O2SAT 96
[2023-10-16 05:26] LABS: Basophils Percent Auto 0.1 % (0.2-2.0); Hematocrit 39.7 % (42.0-54.0); Hemoglobin 12.8 g/dL (14.0-18.0); Immature Granulocytes Abs Auto 0.11 10^3/uL (0.00-0.03); Immature Granulocytes Pct Auto 0.9 % (0.0-0.5); Lymphocytes Absolute Auto 0.3 10^3/uL (1.2-3.8); Lymphocytes Percent Auto 2.8 % (20.5-60.0); Mean Corpuscular HGB Conc 32.2 g/dL (29.9-35.2); Mean Corpuscular Hemoglobin 33.2 pg (25.9-34.0); Mean Corpuscular Volume 103.1 fL (80.0-94.0); Mean Platelet Volume 10.6 fL (9.5-13.5); Monocytes Absolute Auto 0.3 10^3/uL (0.3-0.8); Monocytes Percent Auto 2.1 % (1.7-12.0); Neutrophils Percent Auto 94.1 % (43.0-75.0); Platelet Count 135 10^3/uL (150-450); Red Blood Count 3.85 10^6/uL (4.70-6.10); Red Cell Distribution Width 14.8 % (11.0-15.0); White Blood Count 11.7 10^3/uL (4.0-11.0)
[2023-10-16 05:41] VITALS: BP 127/73; PULSE 69; RESP 18; TEMP 37.1; O2SAT 95
[2023-10-16 05:51] LABS: Alanine Aminotransferase 16 U/L (16-63); Albumin Globulin Ratio 0.6; Albumin Level 2.2 g/dL (3.4-5.0); Alkaline Phosphatase 70 U/L (46-116); Anion Gap 9.3; Aspartate Amino Transferase 6 U/L (15-37); BUN Creatinine Ratio 20.8; Bilirubin Total 0.2 mg/dL (0.2-1.0); Calcium 8.7 mg/dL (8.5-10.1); Carbon Dioxide 31.3 mmol/L (21.0-32.0); Chloride 111 mmol/L (98-107); Estimated GFR (African America >60 (>=60); Estimated GFR (Non-African Ame >60 (>=60); Globulin 3.4 g/dL; Glucose 164 mg/dL (74-106); Magnesium 2.2 mg/dL (1.8-2.4); Potassium 3.6 mmol/L (3.5-5.1); Sodium 148 mmol/L (136-145); Total Protein 5.6 g/dL (6.4-8.2)
--- NOTE | 2023-10-16 06:00 | XR_ITS ---
The [address] [address] Patient Name: MANNIE SANDOVAL MRN: [id number] date: 1960 Sex: M Assigned Patient Location: [place] Current Patient Location: [place] Accession/Order Number: [id number] Exam Date: 10/16/2023 06:15 Report Date: 10/16/2023 06:52 At the request of: ORTIZ SINHA Procedure: XR chest 1V EXAMINATION: XR chest 1V HISTORY: pneumonia COMPARISON: XR chest 10/13/2023 FINDINGS: LUNGS: Underexpanded lungs with mild opacity within medial right lung base. Tiny dense nodule within left lung apex favoring a granuloma. VASCULATURE: No increased pulmonary vasculature. PLEURA: No pneumothorax, effusion, or pleural thickening. CARDIAC: No cardiomegaly or cardiac silhouette abnormality. MEDIASTINUM: No visible mass or adenopathy. BONES: Advanced degenerative changes the glenohumeral joints. OTHER: Negative. XR/XR chest 1V IMPRESSION: 1. Low lung volume examination with stable mild right basilar infiltrates. Electronically authenticated by: MANISH BURNETT Date: 10/16/2023 06:52
[2023-10-16] MEDS: HYOSCYAMINE SULFATE 0.125 MG TAB.SUBL PO (06:25)
[2023-10-16] MEDS: CEFTAZIDIME 2,000 MG in 0.9 % SODIUM CHLORIDE 100 ML 100 MG IV (06:25)
[2023-10-16 07:30] VITALS: O2SAT 89
--- NOTE | 2023-10-16 08:07 | CM.NOTE ---
Rounds made with Dr. Torres, pt okay for discharge today.
[2023-10-16 10:15] VITALS: BP 144/73; PULSE 107; O2SAT 93
[2023-10-16] MEDS: NYSTATIN 15 GM POWDER 1 APPLIC TOPICAL (10:16)
[2023-10-16] MEDS: TAMSULOSIN HCL 0.4 MG CAPSULE PO (10:16)
[2023-10-16] MEDS: LACTOSE -REDUCED (ENSURE ORIGINAL 237 ML LIQUID) PO (10:16)
[2023-10-16] MEDS: OMEPRAZOLE 20 MG CAPSULE.DR PO (10:16)
[2023-10-16] MEDS: DOCUSATE SODIUM 100 MG CAPSULE PO (10:16)
[2023-10-16] MEDS: CETIRIZINE HCL 10 MG TABLET PO (10:16)
--- NOTE | 2023-10-16 10:48 | P.DS_ITS ---
<Statement entered by Rustam Torres MD - 10/16/23 18:40> This documentation has been reviewed and approved. This is a review with input and diagnoses provided by nurse practitioner-would add the diagnosis of thrombocytopenia and hypernatremia. DS: Providers Provider Date of admission: 10/13/23 12:16 Primary care physician: JESSICA ALBA Consults: 10/14/23 08:31 Physical Therapy Eval and Treat Routine Reason for consultation: eval Has provider been notified: No Discharging clinician: Maribell Hilario DS: Diagnosis Discharge Diagnosis (1) Pneumonia: (2) Bigeminal pulse: (3) Asthma exacerbation: (4) Hypernatremia: (5) Down's syndrome: (6) BPH (benign prostatic hyperplasia): Qualifiers: Lower urinary tract symptom presence: unspecified whether lower urinary tract symptoms present Qualified Code(s): N40.0 - Benign prostatic hyperplasia without lower urinary tract symptoms (7) Protein-calorie malnutrition, mild: (8) Iron deficiency anemia: DS: Summary Hospital Course Hospital Course: The patient was admitted with healthcare associated pneumonia as he was recently admitted for pneumonia within the last month and lives in a community setting facility. He was treated with broad-spectrum IV antibiotics for gram-negative and gram-positive pathogens and high dose IV steroids for underlying asthma exacerbation. He initially required 2 L of O2 supplementation which has been weaned down to 1 L by the time of discharge with only mild desaturation on RA. He does use home O2 at night and sometimes during the day as well, so this is near his baseline. Mild thrombocytopenia was noted during his stay but is not clinically concerning. Leukocytosis was noted on admission but is nearly reso lved at discharge and he remained afebrile throughout his stay. Bigeminy was initially reported on telemetry but this has apparently resolved and telemetry was discontinued as the patient is a DNR CC. His electrolytes were all unremarkable with only mild hypernatremia noted by discharge and cardiac enzymes and BNP were WNL. He is being discharged home in stable condition with prescriptions to continue double antibiotic coverage with cefdinir and doxycycline for 7 more days (total 10-day course). We have also prescribed a prednisone taper at discharge. He is to continue to use O2 as needed during the day to keep his sats above 90%. He should follow-up with his PCP in 3 to 5 days. Time Spent with Patient Time attestation: Total time spent providing and/or coordinating discharge services: Time spent: greater than 30 minutes Specific discharge activities: Physical exam, discussion of discharge plan, questions answered. Exam Narrative Exam Narrative: Pt has severe MR at baseline from Down's Syndrome. Pt is non-verbal, non- ambulatory, unable to cooperate with exam. Constitutional Vital Signs, click to edit/add: Last Vital Signs Temp 98.7 F 10/16/23 05:41 Pulse 107 H 10/16/23 10:15 Resp 18 10/16/23 05:41 BP 144/73 H 10/16/23 10:15 Pulse Ox 93 L 10/16/23 10:15 O2 Del Method Nasal Cannula 10/16/23 10:15 O2 Flow Rate 1 10/16/23 10:15 Common normals: no apparent distress and alert Orientation/consciousness: Yes awake HENMT Common normals: normocephalic and head/scalp atraumatic Eye Common normals: PERRL, EOMs intact bilaterally, conjunctivae normal and no scleral icterus Neck & C-Spine Common normals: no JVD Respiratory Common normals: normal respiratory effort and no use of accessory muscles Effort & inspection: symmetric chest movement Auscultation: rhonchi (Throughout - consistent with baseline LS) Cardio Common normals: no JVD, regular rate, regular rhythm, S1 normal heart sound, S2 normal heart sound, no murmurs and peripheral pulses 2+ throughout GI Common normals: Normal to inspection, nondistended, normoactive bowel sounds present, soft to palpation and non-tender Bladder/kidney exam: bladder normal to palpation Extremity Common normals: normal to inspection, full ROM, normal capillary refill and no pedal edema General: no clubbing and no cyanosis Neuro Common normals: moves all extremities DS: Data Data Completed and Pending Labs on day of discharge: Labs from last 24 hours 10/16/23 04:36 WBC 11.7 H RBC 3.85 L Hgb 12.8 L Hct 39.7 L MCV 103.1 H MCH 33.2 MCHC 32.2 RDW 14.8 Plt Count 135 L MPV 10.6 Neut % (Auto) 94.1 H Lymph % (Auto) 2.8 L [place] % (Auto) 2.1 Eos % (Auto) 0.0 L Baso % (Auto) 0.1 L Neut # (Auto) 11.0 H Lymph # (Auto) 0.3 L [place] # (Auto) 0.3 Eos # (Auto) 0.0 Baso # (Auto) 0.0 Abs Immat Gran (auto) 0.11 H Imm/Tot Granulo (auto) 0.9 H Sodium 148 H Potassium 3.6 Chloride 111 H Carbon Dioxide 31.3 Anion Gap 9.3 BUN 20.0 H Creatinine 0.96 Est GFR ( Amer) >60 Est GFR (Non-Af Amer) >60 BUN/Creatinine Ratio 20.8 Glucose 164 H Calcium 8.7 Magnesium 2.2 Total Bilirubin 0.2 AST 6 L ALT 16 Alkaline Phosphatase 70 Total Protein 5.6 L Albumin 2.2 L Globulin 3.4 Albumin/Globulin Ratio 0.6 Imaging Chest x-ray: Radiologist's impression: 10/13/23 IMPRESSION: 1. Low lung volume examination with mild right basilar infiltrates versus atelectasis; not significant changed. 10/16/23 IMPRESSION: 1. Low lung volume examination with stable mild right basilar infiltrates. Discharge Plan Discharge Disposition: Home, Self-Care Discharge Medications: New prednisone 10 mg tablet See Rx Instructions .ROUTE .COMPLEX 12 Days Qty: 42 0RF Rx Instructions: 6 tabs x 2 days, then 5 tabs x 2 days, then 4 tabs x 2 days, then 3 tabs x 2 days, then 2 tabs x 2 days, then 1 tab x 2 days, then STOP cefdinir 300 mg capsule 300 mg PO BID 7 Days Qty: 14 0RF doxycycline hyclate 100 mg capsule 100 mg PO BID 7 Days Qty: 14 0RF Continued dexamethasone 4 mg tablet 4 mg PO DAILY docusate sodium [Colace] 100 mg capsule 100 mg PO DAILY hyoscyamine sulfate 0.125 mg tablet,disintegrating 0.125 mg PO Q8H loratadine 10 mg tablet 10 mg PO DAILY omeprazole 20 mg capsule,delayed release(DR/EC) 20 mg PO BID tamsulosin 0.4 mg capsule 0.4 mg PO DAILY albuterol sulfate 1.25 mg/3 mL solution for nebulization 1.25 mg inhalation Q8H PRN (Reason: shortness of breath or wheezing) ammonium lactate 12 % cream 1 applic topical DAILY Rx Instructions: APPLY TO AFFECTED AREA nystatin 100,000 unit/gram powder 1 applic topical BID Ensure Liquid 1 ea PO BID Eucerin Cream 1 applic topical BID menthol-zinc oxide [Calmoseptine] 0.44-20.6 % ointment 1 applic topical TID-QID PRN (Reason: skin irritation) Rx Instructions: APPLY TO BUTTOCKS WITH EACH BRIEF CHANGE NEEDED Activity: increase activity as tolerated Diet: advance to your usual diet Forms: Portal Instructions
[2023-10-16 11:40] VITALS: RESP 57; O2SAT 94
--- NOTE | 2023-10-16 11:56 | SWNOTE1 ---
Pt is ready for dc, will be returning to [facility] in [place]. PANFILO set up transport with [place] and they will be here around 2:00pm. SW notified pt's sister. PANFILO also spoke with faculty administrator at [facility] and notified of time. They also requested all dc paperwork be sent with pt as well. SW put together packet and will add discharge packet once completed.
--- NOTE | 2023-10-16 16:06 | NUTR.NU ---
Pt admitted 10/13/23 w/dx aspiration PNA, dysphagia, OA. H/o Down's syndrome, impaired vision and hearing. Pt requires Mechanical Soft (ground) food textures, honey-consistency liquids, and feeding assistance. PO intakes average 80% and meet his estimated nutrient requirements. Will follow PRN.
== END 2023-10-16 15:09 | disposition home or self-care (01) | DRG 194 ==
LOC: ER 11:03 → MS 12:19
PROVIDERS: Admitting Provider Family Medicine; Emergency Provider Emergency Medicine; PCP Internal Medicine; Visit Provider Nurse Practitioner
DX: J18.9 Pneumonia, unspecified organism (principal); E44.1 Mild protein-calorie malnutrition; J45.901 Unspecified asthma with (acute) exacerbation; E87.0 Hyperosmolality and hypernatremia; Z66 Do not resuscitate; R00.8 Other abnormalities of heart beat; N40.0 Benign prostatic hyperplasia without lower urinary tract symptoms; Q90.9 Down syndrome, unspecified; D50.9 Iron deficiency anemia, unspecified; R09.02 Hypoxemia; H91.90 Unspecified hearing loss, unspecified ear; H54.40 Blindness, one eye, unspecified eye; M19.90 Unspecified osteoarthritis, unspecified site; E78.5 Hyperlipidemia, unspecified; Z68.25 Body mass index [BMI] 25.0-25.9, adult; Z79.899 Other long term (current) drug therapy; Z88.0 Allergy status to penicillin
CPT/HCPCS: 36415; 71045; 80053; 83605; 83735; 83880; 84484; 85007; 85025; 85027; 87070; 87635; 87804; 87811; 93005; 94640; 94761; 96365; 96366; 96367; 96368; 96375; 96376; 99285; J0713; J2930

== ENCOUNTER 2023-11-27 19:50 | Inpatient (IN) | payer MEDICARE, MEDICAID, SELFPAY ==
[2023-11-27] VITALS (26 sets, daily range): BP systolic 96–146; BP diastolic 54–95; PULSE 105–156; RESP 18–30; TEMP 36.8–37.4; O2SAT 90–99; BMI 25.9
--- NOTE | 2023-11-27 19:59 | ECG_ITS ---
[facility] Test Date: 2023-11-27 Pat Name: MANNIE SANDOVAL Department: Room: - Gender: Male [employer]: : [id number] Requested By: [id number] Order Number: [id number] Reading MD: ALMA BENNETT Measurements Intervals [place] Rate: 143 P: -[id number] MS: [id number] QRS: 243 QRSD: 90 T: 66 QT: 348 QTc: 431 Interpretive Statements Sinus tachycardia 5120 Possible right ventricular hypertrophy 7300 Indeterminate axis 8003 Consistent with pulmonary disease 9150 abnormal ECG Electronically Signed On 11-27-2023 22:50:04 EST by ALMA BENNETT
--- NOTE | 2023-11-27 19:59 | XR_ITS ---
The [place] [id number] Patient Name: MANNIE SANDOVAL MRN: [id number] date: 1960 Sex: M Assigned Patient Location: ER Current Patient Location: ER Accession/Order Number: [id number] Exam Date: 11/27/2023 20:17 Report Date: 11/27/2023 20:48 At the request of: KATARZYNA ADAMS Procedure: XR chest 1V EXAM: XR chest 1V TECHNIQUE: Single AP view chest HISTORY: short of breath COMPARISON: 10/16/2023 FINDINGS: The heart and mediastinum are unremarkable. There is mild residual airspace opacity medially in the right lower lung field. Severe arthritic changes are seen of both shoulders. Evaluation limited by low lung volumes and lordotic positioning. XR/XR chest 1V IMPRESSION: Mild residual atelectasis and/or pneumonia medially in the right lung base. Electronically authenticated by: MARCELA DAVISON Date: 11/27/2023 20:48
--- OUTSIDE RECORDS SUMMARY | 2023-11-27 19:59 | XMS_ITS | CCD ---
Author Name Unknown Address [address] [place] [address] Organization [facility] Care Team Providers Care Garment Fitter Name Role Phone Jessica Alba Primary Care Provider JESSICA ALBA Primary Care Unavailable Fer Page Attending Unavailable JESSICA ALBA Consulting Unavailable Jessica Alba Primary Care Provider [phone] Jessica Alba MD Primary Care Provider Jessica [...] Primary Care Unavailable JANUARY DAY [facility] Unavailable CAN GIORDANO Admitting Unavailable CAN GIORDANO Attending Unavailable Allergies Allergy Classification Reported Allergen(s) Allergy Type Date of Onset Reaction(s) Facility Penicillins (antibiotic) (1 source) Penicillins Drug Allergy 4 [facility] Work Phone: (20 sources) Penicillins Propensity to adverse reactions to drug 4 [facility] [place] (2 sources) Penicillin; Translations: [penicillin] Drug Allergy 2 [facility] Repository Medications Current Medications Medication Drug [...] 1 spray by Each Nostril route daily [id number] 2 Bottle 0 01/20/2020 Active 58 actuat [...] sources) Polyene Antifungal Start: 09-15-2018 nystatin (MYCOSTATIN) [id number] UNIT/GM powder Apply 3 times daily PRN [...] (PF) 10 mL injection polyethylene glycol [id number] mg powder for oral solution (10 sources) [...] of both knees , Obstructive sleep apnea [id number] support stockings fitted Act 0 02/25/2018 Suspended Start: 02-25-2018 UNABLE TO FIND Indications: Urinary frequency , Primary osteoarthritis of both knees , Obstructive sleep apnea Variable height adjustable hospital bed (obstructive sleep apnea and osteoarthritis for positioning) 1 Device 0 02/25/2018 Suspended Start: 02-25-2018 UNABLE TO FIND Indications: Urinary frequency , Primary osteoarthritis of both knees , Obstructive sleep apnea [id number] support stockings fitted Act 0 02/25/2018 Active [...] 12-22-2018 Chronic Other aftercare (1 source) Other usp (current) drug therapy; Translations: [OTH HALFWAY CURRENT DRUG THERAPY] Onset: 11-24-2021 Episodic Other [...] GROWTH 5 DAYS Report Status FINAL 06/03/2022 [facility] Comment on above: Performed By: #### B CUL2 #### [facility] [address] [place] [address] [place] [address] Heating And Cooling Technician: Mode Culver MD Formerly [facility],Bloodon 06-03-2022 Cult,Blood Specimen Description .BLOOD Special Requests 10ML RT AC Culture NO GROWTH 5 DAYS Report Status FINAL 06/03/2022 [facility] Comment on above: Performed By: #### B C #### [facility] [address] [place] [address] Heating And Cooling Technician: Mode Culver MD Basic Metab w/rfx MGon 05-31 (cont.) [facility] Comment on above: Result Comment: Aver age GFR for 60-69 years old: 85 mL/min/1.73sq m Chronic Kidney Disease: <60 mL/min/1.73sq m Kidney failure: <15 mL/min/1.73sq m eGFR calculated using average adult body mass. Additional eGFR calculator available at: http://www.[employer]/multiple_crcl_2012.htm Performed By: #### B CUL2 #### [facility] [address] [place] [address] Heating And Cooling Technician: Mode Culver MD Anion gap [Moles/Vol] 9 mmol/L Normal 9-17 [facility] Comment on above: Performed By: #### B CUL2 #### [facility] [address] [place] [address] Heating And Cooling Technician: Mode Culver MD BUN/CRE Ratio 17 Normal 9-20 [facility] Comment on above: Performed By: #### B CUL2 #### [facility] [address] [place] [address] Heating And Cooling Technician: Mode Culver MD Calcium [Mass/Vol] 8.8 mg/dL Normal 8.6-10.4 [facility] Comment on above: Performed By: #### B CUL2 #### [facility] [address] [place], [place] [id number] Heating And Cooling Technician: Mode Culver MD Chloride [Moles/Vol] 106 mmol/L Normal 98-107 [facility] Comment on above: Performed By: #### B CUL2 #### [facility] [address] [place] [address] Heating And Cooling Technician: Mode Culver MD CO2 [Moles/Vol] 27 mmol/L Normal 20-31 [facility] Comment on above: Performed By: #### B CUL2 #### [facility] [address] [place] [address] Heating And Cooling Technician: Mode Culver MD Creatinine [Mass/Vol] 0.87 mg/dL Normal 0.70-1.20 [facility] Comment on above: Performed By: #### B CUL2 #### [facility] [address] [place] [address] Heating And Cooling Technician: Mode Culver MD GFR, Amer >60 Normal >[address] [facility] Comment on above: Performed By: #### B CUL2 #### [facility] [address] [place], [place] [id number] Heating And Cooling Technician: Mode Culver MD GFR,non Amer >60 Normal >60 [facility] Comment on above: Performed By: #### B CUL2 #### [facility] [address] [place] [address] Heating And Cooling Technician: Mode Culver MD Glucose [Mass/Vol] 83 mg/dL Normal 70-99 [facility] Comment on above: Performed By: #### B CUL2 #### [facility] [address] [place], [place] [id number] Heating And Cooling Technician: Mode Culver MD Potassium [Moles/Vol] 4.1 mmol/L Normal 3.7-5.3 [facility] Comment on above: Performed By: #### B CUL2 #### [facility] [address] [place], [place] [id number] Heating And Cooling Technician: Mode Culver MD Sodium [Moles/Vol] 142 mmol/L Normal 135-144 [facility] Comment on above: Performed By: #### B CUL2 #### [facility] [address] [place], [place] [id number] Heating And Cooling Technician: Mode Culver MD Staging: Normal [facility] Comment on above: Result Comment: Stag e 1: Some kidney damage normal GFR Stage 2: Mild kidney damage GFR 60-89 Stage 3: Moderate kidney damage GFR 30-59 Stage 4: Severe kidney damage GFR 15-29 Stage 5: Severe kidney damage GFR <15 ESRD - chronic treatment by dialysis or transplant Performed By: #### B CUL2 #### [facility] [address] [place] [address] Heating And Cooling Technician: Mode Culver MD Urea nitrogen [Mass/Vol] 15 mg/dL Normal 8-23 [facility] Comment on above: Performed By: #### B CUL2 #### [facility] [address] [place] [address] Heating And Cooling Technician: Mode Culver MD Basic Metabolic Panel w/ Ref jeremiah to MGon 05-31-2022 Anion gap [Moles/Vol] 9 mmol/L 9 - 17 mmol/L [facility] Calcium [Mass/Vol] 8.8 mg/dL 8.6 - 10. 4 mg/dL [facility] Chloride [Moles/Vol] 106 mmol/L 98 - 107 mmol/L [facility] CO2 [Moles/Vol] 27 mmol/L 20 - 31 mmol/L [facility] Creatinine [Mass/Vol] 0.87 mg/dL 0.7 - 1.2 mg/dL [facility] GFR >60 60 - PINF mL/min [facility] GFR Non- >60 60 - PINF mL/min [facility] Glucose [Mass/Vol] 83 mg/dL 70 - 99 mg/dL [facility] Potassium [Moles/Vol] 4.1 mmol/L 3.7 - 5.3 mmol/L [facility] Sodium [Moles/Vol] 142 mmol/L 135 - 144 mmol/L [facility] Urea nitrogen (BldV) [Mass/Vol] 15 mg/dL 8 - 23 mg/dL [facility] Urea nitrogen/Creatinine (Bld) [Mass ratio] 17 9 - 20 [facility] CBC auto differentialon 05-08 Absolute Eos # 0.08 [facility] Absolute Immature Granulocyte [facility] Absolute Lymph # 0.94 Low [facility] Absolute De [place] # 0.51 [facility] Basophils (Bld) [#/Vol] 0.04 10*3/uL [facility] Basophils/100 WBC (Bld) 1 % 0 - 2 % [facility] Eosinophils/100 WBC (Bld) 2 % 1 - 4 % [facility] Hematocrit (Bld) [Volume fraction] 40.9 % 40.7 - 50.3 % [facility] Hemoglobin (Bld) [Mass/Vol] 13.4 g/dL 13 - 17 g/dL [facility] Immature granulocytes/100 WBC (Bld) 0 % 0 [facility] Interpretation and review of laboratory results Abnormal [facility] Lymphocytes/100 WBC (Bld) 22 % Low 24 - 43 % [facility] MCH (RBC) [Entitic mass] 33.6 pg High 25.2 - 33.5 pg [facility] MCHC (RBC) [Mass/Vol] 32.8 g/dL 28.4 - 34.8 g/dL [facility] MCV (RBC) [Entitic vol] 102.5 fL 82.6 - 102.9 fL [facility] Monocytes/100 WBC (Bld) 12 % 3 - 12 % [facility] NRBC Automated 0.0 0.0 per 100 WBC [facility] Platelet distribution width (Bld) [Ratio] 13.4 % 11.8 - 14.4 % [facility] Platelet mean volume (Bld) [Entitic vol] 9.8 fL 8.1 - 13.5 fL [facility] Platelets (Bld) [#/Vol] 149 10*3/uL [facility] RBC (Bld) [#/Vol] 3.99 10*6/uL Low 4.21 - 5.7 7 m/uL [facility] Segmented neutrophils/100 WBC (Bld) 63 % 36 - 65 % [facility] Segs Absolute 2.65 [facility] WBC (Bld) [#/Vol] 4.2 10*3/uL [facility] CBC with Diffon 05-31-2022 Abs. Basophil 0.04 k/uL Normal 0.00-0.20 [facility] Comment on above: Performed By: #### B MPX, CDP #### [address] [place], [place] [id number] Heating And Cooling Technician: Mode Culver MD Abs.Imm.Granulocyte <0.03 Normal 0.00-0.30 [facility] Comment on above: Performed By: #### B MPX, CDP #### [address] [place], [place] [address] Heating And Cooling Technician: Mode Culver MD Abs.Neutrophil (Seg) 2.65 k/uL Normal 1.50-8.10 [facility] Comment on above: Performed By: #### B MPX, CDP #### [address] [place] [address] Heating And Cooling Technician: Mode Culver MD Basophils/100 WBC (Bld) 1 % Normal 0-2 [facility] Comment on above: Performed By: #### B MPX, CDP #### [address] [place], [place] [address] Heating And Cooling Technician: Mode Culver MD Eosinophils (Bld) [#/Vol] 0.08 10*3/uL Normal 0.00-0.44 [facility] Comment on above: Performed By: #### B MPX, CDP #### [address] [place], [facility] Heating And Cooling Technician: Mode Culver MD Eosinophils/100 WBC (Bld) 2 % Normal 1-4 [facility] Comment on above: Performed By: #### B MPX, CDP #### [address] [place] [id number] Heating And Cooling Technician: Mode Culver MD Erythrocyte distribution width (RBC) [Ratio] 13.4 % Normal 11.8-14.4 [facility] Comment on above: Performed By: #### B MPX, CDP #### [address] [place], [facility] Heating And Cooling Technician: Mode Culver MD Hematocrit (Bld) [Volume fraction] 40.9 % Normal 40.7-50.3 [facility] Comment on above: Performed By: #### B MPX, CDP #### [facility] [address] [place] [address] Dr[place], [place] [id number] Heating And Cooling Technician: Mode Culver MD Hemoglobin (Bld) [Mass/Vol] 13.4 g/dL Normal 13.0-17.0 [facility] Comment on above: Performed By: #### B MPX, CDP #### [address] [place], [facility] Heating And Cooling Technician: Mode Culver MD Immature granulocytes/100 WBC (Bld) 0 % Normal 0 [facility] Comment on above: Performed By: #### B MPX, CDP #### [facility] [address] [place] [address] Dr. [place], [facility] Heating And Cooling Technician: Mode Culver MD Lymphocytes (Bld) [#/Vol] 0.94 10*3/uL Low 1.10-3.70 [facility] Comment on above: Performed By: #### B MPX, CDP #### [address] [place], [facility] Heating And Cooling Technician: Mode Culver MD Lymphocytes/100 WBC (Bld) 22 % Low 24-43 [facility] Comment on above: Performed By: #### B MPX, CDP #### [facility] [address] [place] [address] Dr. [place], [facility] Heating And Cooling Technician: Mode Culver MD MCH (RBC) [Entitic mass] 33.6 pg High 25.2-33.5 [facility] Comment on above: Performed By: #### B MPX, CDP #### [facility] [address] [place] [address] Dr. [place], [facility] Heating And Cooling Technician: Mode Culver MD MCHC (RBC) [Mass/Vol] 32.8 g/dL Normal 28.4-34.8 [facility] Comment on above: Performed By: #### B MPX, CDP #### [facility] [address] [place], [place] [id number] Heating And Cooling Technician: Mode Culver MD MCV (RBC) [Entitic vol] 102.5 fL Normal 82.6-102.9 [facility] Comment on above: Performed By: #### B MPX, CDP #### [facility] [address] [place] [address] Heating And Cooling Technician: Mode Culver MD Monocytes (Bld) [#/Vol] 0.51 10*3/uL Normal 0.10-1.20 [facility] Comment on above: Performed By: #### B MPX, CDP #### [address] [place], [place] [id number] Heating And Cooling Technician: Mode Culver MD Monocytes/100 WBC (Bld) 12 % Normal 3-12 [facility] Comment on above: Performed By: #### B MPX, CDP #### [address] [place], [place] [id number] Heating And Cooling Technician: Mode Culver MD Neutrophil (Seg) 63 % Normal 36-[address] [facility] Comment on above: Performed By: #### B MPX, CDP #### [address] [place], [place] [id number] Heating And Cooling Technician: Mode Culver MD NRBC Automated 0.0 per 100 WBC Normal 0.0 [facility] Comment on above: Performed By: #### B MPX, CDP #### [address] [place], [place] [id number] Heating And Cooling Technician: Mode Culver MD Platelet mean volume (Bld) [Entitic vol] 9.8 fL Normal 8.1-13.5 [facility] Comment on above: Performed By: #### B MPX, CDP #### [facility] [address] [place] [address] Heating And Cooling Technician: Mode Culver MD Platelets (Bld) [#/Vol] 149 10*3/uL Normal 138-453 [facility] Comment on above: Performed By: #### B MPX, CDP #### [facility] [address] [place] [address] Heating And Cooling Technician: Mode Culver MD RBC (Bld) [#/Vol] 3.99 10*6/uL Low 4.21-5.77 [facility] Comment on above: Performed By: #### B MPX, CDP #### [facility] [address] [place] [address] Heating And Cooling Technician: Mode Culver MD WBC (Bld) [#/Vol] 4.2 10*3/uL Normal 3.5-11.3 [facility] Comment on above: Performed By: #### B MPX, CDP #### [facility] [address] [place] [address] Heating And Cooling Technician: Mode Culver MD Laboratory - Chemistry and C hemistry - challengeon 05-31-2022 GFR/1.73 sq M.predicted MDRD (S/P/Bld) [Vol rate/Area] [facility] Comment on above: Average GFR for 60-6 9 years old: 85 mL/min/1.73sq m Chronic Kidney Disease: <60 mL/min/1.73sq m Kidney failure: <15 mL/min/1.73sq m eGFR calculated using average adult body mass. Additional eGFR calculator available at: http://www.[employer].com/multiple_crcl_2012.htm Stage 1: Some kidney damage normal GFR Stage 2: Mild kidney damage GFR 60-89 Stage 3: Moderate kidney damage GFR 30-59 Stage 4: Severe kidney damage GFR 15-29 Stage 5: Severe kidney damage GFR <15 ESRD - chronic treatment by dialysis or transplant Basic Metab w/rfx MGon 05-30 (cont.) Normal [facility] Comment on above: Result Comment: Aver age GFR for 60-69 years old: 85 mL/min/1.73sq m Chronic Kidney Disease: <60 mL/min/1.73sq m Kidney failure: <15 mL/min/1.73sq m eGFR calculated using average adult body mass. Additional eGFR calculator available at: http://www.[employer]/multiple_crcl_2011.htm Performed By: #### C DP, BMPX #### [facility] [address] [place] [address] Heating And Cooling Technician: Mode Culver MD Anion gap [Moles/Vol] 1 mmol/L Low 9-17 [facility] Comment on above: Performed By: #### C DP, BMPX #### [facility] [address] [place] [address] Heating And Cooling Technician: Mode Culver MD BUN/CRE Ratio 26 High 9- [facility] Comment on above: Performed By: #### C DP, BMPX #### [address] [place] [address] Heating And Cooling Technician: Mode Culver MD Calcium [Mass/Vol] 8.9 mg/dL Normal 8.6-10.4 [facility] Comment on above: Performed By: #### C DP, BMPX #### [facility] [address] [place], [place] [id number] Heating And Cooling Technician: Mode Culver MD Chloride [Moles/Vol] 106 mmol/L Normal 98-107 [facility] Comment on above: Performed By: #### C DP, BMPX #### [facility] [address] [place] [address] [place] [address] Heating And Cooling Technician: Mode Culver MD CO2 [Moles/Vol] 26 mmol/L Normal - [facility] Comment on above: Performed By: #### C DP, BMPX #### [facility] [address] [place], [place] [id number] Heating And Cooling Technician: Mode Culver MD Creatinine [Mass/Vol] 0.69 mg/dL Low 0.70-1.20 [facility] Comment on above: Performed By: #### C DP, BMPX #### [facility] [address] [place], [place] [id number] Heating And Cooling Technician: Mode Culver MD GFR, Amer >60 Normal >[address] [facility] Comment on above: Performed By: #### C DP, BMPX #### [facility] [address] [place], [place] 9445483 Heating And Cooling Technician: Mode Culver MD GFR,non Amer >60 Normal >60 [facility] Comment on above: Performed By: #### C DP, BMPX #### [facility] [address] [place], [place] 149[address]83 Heating And Cooling Technician: Mode Culver MD Glucose [Mass/Vol] 145 mg/dL High 70-99 [facility] Comment on above: Performed By: #### C DP, BMPX #### [facility] [address] [place], [place] 1078183 Heating And Cooling Technician: Mode Culver MD Potassium [Moles/Vol] 4.4 mmol/L Normal 3.7-5.3 [facility] Comment on above: Performed By: #### C DP, BMPX #### [facility] [address] [place], [place] [id number] Heating And Cooling Technician: Mode Culver MD Sodium [Moles/Vol] 133 mmol/L Low 135-144 [facility] Comment on above: Performed By: #### C DP, BMPX #### [facility] [address] [place], [place] [id number] Heating And Cooling Technician: Mode Culver MD Staging: Normal [facility] Comment on above: Result Comment: Stag e 1: Some kidney damage normal GFR Stage 2: Mild kidney damage GFR 60-89 Stage 3: Moderate kidney damage GFR 30-59 Stage 4: Severe kidney damage GFR 15-29 Stage 5: Severe kidney damage GFR <15 ESRD - chronic treatment by dialysis or transplant Performed By: #### C DP, BMPX #### [facility] [address] [place] [address] Heating And Cooling Technician: Mode Culver MD Urea nitrogen [Mass/Vol] 18 mg/dL Normal 8-23 [facility] Comment on above: Performed By: #### C DP, BMPX #### [facility] [address] [place] [address] Heating And Cooling Technician: Mode Culver MD Basic Metabolic Panel w/ Ref jeremiah to MGon 05-30-2022 Anion gap [Moles/Vol] 1 mmol/L Low 9 - 17 mmol/L [facility] Calcium [Mass/Vol] 8.9 mg/dL 8.6 - 10. 4 mg/dL [facility] Chloride [Moles/Vol] 106 mmol/L 98 - 107 mmol/L [facility] CO2 [Moles/Vol] 26 mmol/L 20 - 31 mmol/L [facility] Creatinine [Mass/Vol] 0.69 mg/dL Low 0.7 - 1.2 mg/dL [facility] GFR >60 60 - PINF mL/min [facility] GFR Non- >60 60 - PINF mL/min [facility] Glucose [Mass/Vol] 145 mg/dL High 70 - 99 mg/dL [facility] Interpretation and review of laboratory results Abnormal [facility] Potassium [Moles/Vol] 4.4 mmol/L 3.7 - 5.3 mmol/L [facility] Sodium [Moles/Vol] 133 mmol/L Low 135 - 144 mmol/L [facility] Urea nitrogen (BldV) [Mass/Vol] 18 mg/dL 8 - 23 mg/dL [facility] Urea nitrogen/Creatinine (Bld) [Mass ratio] 26 High 9 - [address] [facility] auto differentialon 05-08 Absolute Eos # [facility] Absolute Immature Granulocyte 0.05 [facility] Absolute Lymph # 0.56 Low [facility] Absolute De Witt # 0.36 [facility] Basophils Absolute [facility] Basophils/100 WBC (Bld) 0 % 0 - 2 % [facility] Eosinophils/100 WBC (Bld) 0 % Low 1 - 4 % [facility] Hematocrit (Bld) [Volume fraction] 40.8 % 40.7 - 50.3 % [facility] Hemoglobin (Bld) [Mass/Vol] 13.4 g/dL 13 - 17 g/dL [facility] Immature granulocytes/100 WBC (Bld) 1 % High 0 [facility] Interpretation and review of laboratory results Abnormal [facility] Lymphocytes/100 WBC (Bld) 9 % Low 24 - 43 % [facility] MCH (RBC) [Entitic mass] 33.5 pg 25.2 - 33.5 pg [facility] MCHC (RBC) [Mass/Vol] 32.8 g/dL 28.4 - 34.8 g/dL [facility] MCV (RBC) [Entitic vol] 102.0 fL 82.6 - 102.9 fL [facility] Monocytes/100 WBC (Bld) 6 % 3 - 12 % [facility] NRBC Automated 0.0 0.0 per 100 WBC [facility] Platelet distribution width (Bld) [Ratio] 13.2 % 11.8 - 14.4 % [facility] Platelet mean volume (Bld) [Entitic vol] 10.3 fL 8.1 - 13.5 fL [facility] Platelets (Bld) [#/Vol] 180 10*3/uL [facility] RBC (Bld) [#/Vol] 4.00 10*6/uL Low 4.21 - 5.7 7 m/uL [facility] Segmented neutrophils/100 WBC (Bld) 85 % High 36 - 65 % [facility] Segs Absolute 5.41 [facility] WBC (Bld) [#/Vol] 6.4 10*3/uL [facility] CBC with Diffon 05-30-2022 Abs. Basophil <0.03 Normal 0.00-0.20 [facility] Comment on above: Performed By: #### C DP, BMPX #### [facility] [address] [place], [place] [address] Heating And Cooling Technician: Mode Culver MD Abs. Eosinophil <0.03 Normal 0.00-0.44 [facility] Comment on above: Performed By: #### C DP, BMPX #### [facility] [address] [place], [place] [address] Heating And Cooling Technician: Mode Culver MD Abs.Imm.Granulocyte 0.05 k/uL Normal 0.00-0.30 [facility] Comment on above: Performed By: #### C DP, BMPX #### [facility] [address] [place], [facility] Heating And Cooling Technician: Mode Culver MD Abs.Neutrophil (Seg) 5.41 k/uL Normal 1.50-8.10 [facility] Comment on above: Performed By: #### C DP, BMPX #### [facility] [address] [place], [place] [id number] Heating And Cooling Technician: Mode Culver MD Basophils/100 WBC (Bld) 0 % Normal 0-2 [facility] Comment on above: Performed By: #### C DP, BMPX #### [facility] [address] [place], [place] [id number] Heating And Cooling Technician: Mode Culver MD Eosinophils/100 WBC (Bld) 0 % Low 1-4 [facility] Comment on above: Performed By: #### C DP, BMPX #### [facility] [address] [place], [facility] Heating And Cooling Technician: Mode Culver MD Erythrocyte distribution width (RBC) [Ratio] 13.2 % Normal 11.8-14.4 [facility] Comment on above: Performed By: #### C DP, BMPX #### [address] [place], [place] [id number] Heating And Cooling Technician: Mode Culver MD Hematocrit (Bld) [Volume fraction] 40.8 % Normal 40.7-50.3 [facility] Comment on above: Performed By: #### C DP, BMPX #### [address] [place], [place] [id number] Heating And Cooling Technician: Mode Culver MD Hemoglobin (Bld) [Mass/Vol] 13.4 g/dL Normal 13.0-17.0 [facility] Comment on above: Performed By: #### C DP, BMPX #### [address] [place], [place] [id number] Heating And Cooling Technician: Mode Culver MD Immature granulocytes/100 WBC (Bld) 1 % High 0 [facility] Comment on above: Performed By: #### C DP, BMPX #### [address] [place], [place] [id number] Heating And Cooling Technician: Mode Culver MD Lymphocytes (Bld) [#/Vol] 0.56 10*3/uL Low 1.10-3.70 [facility] Comment on above: Performed By: #### C DP, BMPX #### [facility] [address] [place] [address] Dr[place], [place] [id number] Heating And Cooling Technician: Mode Culver MD Lymphocytes/100 WBC (Bld) 9 % Low 24-43 [facility] Comment on above: Performed By: #### C DP, BMPX #### [address] [place], [place] [id number] Heating And Cooling Technician: Mode Culver MD MCH (RBC) [Entitic mass] 33.5 pg Normal 25.2-33.5 [facility] Comment on above: Performed By: #### C DP, BMPX #### [facility] [address] [place] [address] Heating And Cooling Technician: Mode Culver MD MCHC (RBC) [Mass/Vol] 32.8 g/dL Normal 28.4-34.8 [facility] Comment on above: Performed By: #### C DP, BMPX #### [facility] [address] [place], [place] [id number] Heating And Cooling Technician: Mode Culver MD MCV (RBC) [Entitic vol] 102.0 fL Normal 82.6-102.9 [facility] Comment on above: Performed By: #### C DP, BMPX #### [address] [place], [facility] Heating And Cooling Technician: Mode Culver MD Monocytes (Bld) [#/Vol] 0.36 10*3/uL Normal 0.10-1.20 [facility] Comment on above: Performed By: #### C DP, BMPX #### [address] [place], [place] [id number] Heating And Cooling Technician: Mode Culver MD Monocytes/100 WBC (Bld) 6 % Normal 3-12 [facility] Comment on above: Performed By: #### C DP, BMPX #### [facility] [address] [place], [facility] Heating And Cooling Technician: Mode Culver MD Neutrophil (Seg) 85 % High 36-[address] [facility] Comment on above: Performed By: #### C DP, BMPX #### [facility] [address] [place], [place] [id number] Heating And Cooling Technician: Mode Culver MD NRBC Automated 0.0 per 100 WBC Normal 0.0 [facility] Comment on above: Performed By: #### C DP, BMPX #### [facility] [address] [place], [facility] Heating And Cooling Technician: Mode Culver MD Platelet mean volume (Bld) [Entitic vol] 10.3 fL Normal 8.1-13.5 [facility] Comment on above: Performed By: #### C DP, BMPX #### [address] [place] [address] Heating And Cooling Technician: Mode Culver MD Platelets (Bld) [#/Vol] 180 10*3/uL Normal 138-453 [facility] Comment on above: Performed By: #### C DP, BMPX #### [address] [place] [id number] Heating And Cooling Technician: Mode Culver MD RBC (Bld) [#/Vol] 4.00 10*6/uL Low 4.21-5.77 [facility] Comment on above: Performed By: #### C DP, BMPX #### [address] [place] [id number] Heating And Cooling Technician: Mode Culver MD WBC (Bld) [#/Vol] 6.4 10*3/uL Normal 3.5-11.3 [facility] Comment on above: Performed By: #### C DP, BMPX #### [address] [place] [id number] Heating And Cooling Technician: Mode Culver MD [place] MODIFIED BARIUM SWALLOW [...] Kristi Christopher MD 05/30/22 Final result Normal [facility] EXAMINATION: MODIFIED BARIUM SWALLOW WAS PERFORMED IN [...] full discussion of the findings and recommendations. [facility] Kristi Christopher MD - 05/30/2022 [...] full discussion of the findings and recommendations. [facility] Work Phone: Radiology Study observation (narrative) [facility] Work Phone: [place] MODIFIED BARIUM SWALLOW W VIDEOOrdered By: Kristi Christopher on 05-30-2022 [facility] Work Phone: Laboratory - Chemistry and C hemistry - challengeon 05-30-2022 GFR/1.73 sq M.predicted MDRD (S/P/Bld) [Vol rate/Area] [facility] Comment on above: Average GFR for 60-6 9 years old: 85 mL/min/1.73sq m Chronic Kidney Disease: <60 mL/min/1.73sq m Kidney failure: <15 mL/min/1.73sq m eGFR calculated using average adult body mass. Additional eGFR calculator available at: http://www.[employer]/multiple_crcl_2012.htm Stage 1: Some kidney damage normal GFR Stage 2: Mild kidney damage GFR 60-89 Stage 3: Moderate kidney damage GFR 30-59 Stage 4: Severe kidney damage GFR 15-29 Stage 5: Severe kidney damage GFR <15 ESRD - chronic treatment by dialysis or transplant Blood gas, venouson 05-29-20 Kofi Test PASS [facility] HCO3 (Bld) [Moles/Vol] 31.5 mmol/L High 24 - 30 mmol/L [facility] Interpretation and review of laboratory results Abnormal [facility] O2 Device/Flow/% [facility] Oxygen saturation in Blood 55.3 % Low 60 - 85 % [facility] pCO2, Christian 56.4 High 39 - 55 [facility] pH, Christian 7.365 7.32 - 7.42 [facility] pO2, Christian 30.7 30 - 50 [facility] Positive Base Excess, Christian 4.5 mmol/L High 0 - 2 mmol/L [facility] Pt Temp 37.0 [facility] Pt. Position [facility] Sample Site Left Brachial Artery [facility] CBC with Auto Differentialon 05-29-2022 Absolute Eos # 0.26 [facility] Absolute Immature Granulocyte [facility] Absolute Lymph # 0.61 [facility] Absolute [place] # 0.77 [facility] [employer] Basophils (Bld) [#/Vol] 0.06 10*3/uL [facility] Basophils/100 WBC (Bld) 1 % 0 - 2 % [facility] Eosinophils/100 WBC (Bld) 4 % 1 - 4 % [facility] Hematocrit (Bld) [Volume fraction] 44.3 % 40.7 - 50.3 % [facility] Hemoglobin (Bld) [Mass/Vol] 14.0 g/dL 13 - 17 g/dL [facility] Immature granulocytes/100 WBC (Bld) 0 % 0 [facility] Interpretation and review of laboratory results Abnormal [facility] Lymphocytes/100 WBC (Bld) 9 % Low 24 - 43 % [facility] MCH (RBC) [Entitic mass] 33.3 pg 25.2 - 33.5 pg [facility] MCHC (RBC) [Mass/Vol] 31.6 g/dL 28.4 - 34.8 g/dL [facility] MCV (RBC) [Entitic vol] 105.5 fL High 82.6 - 102.9 fL [facility] Monocytes/100 WBC (Bld) 11 % 3 - 12 % [facility] NRBC Automated 0.0 0.0 per 100 WBC [facility] Platelet distribution width (Bld) [Ratio] 13.5 % 11.8 - 14.4 % [facility] Platelet mean volume (Bld) [Entitic vol] 10.3 fL 8.1 - 13.5 fL [facility] Platelets (Bld) [#/Vol] 165 10*3/uL [facility] RBC (Bld) [#/Vol] 4.20 10*6/uL Low 4.21 - 5.7 7 m/uL [facility] Segmented neutrophils/100 WBC (Bld) 75 % High 36 - 65 % [facility] Segs Absolute 5.16 [facility] WBC (Bld) [#/Vol] 6.9 10*3/uL [facility] CBC with Diffon 05-29-2022 Abs. Basophil 0.06 k/uL Normal 0.00-0.20 [facility] Comment on above: Performed By: #### C P, CDP, PT #### [facility] [address] [place] [address] Heating And Cooling Technician: Mode Culver MD Abs.Imm.Granulocyte <0.03 Normal 0.00-0.30 [facility] Comment on above: Performed By: #### C P, CDP, PT #### [facility] [address] [place] [address] Heating And Cooling Technician: Mode Culver MD Abs.Neutrophil (Seg) 5.16 k/uL Normal 1.50-8.10 [facility] Comment on above: Performed By: #### C P, CDP, PT #### [address] [place], [facility] Heating And Cooling Technician: Mode Culver MD Basophils/100 WBC (Bld) 1 % Normal 0-2 [facility] Comment on above: Performed By: #### C P, CDP, PT #### [address] [place], [place] [address] Heating And Cooling Technician: Mode Culver MD Eosinophils (Bld) [#/Vol] 0.26 10*3/uL Normal 0.00-0.44 [facility] Comment on above: Performed By: #### C P, CDP, PT #### [address] [place], [facility] Heating And Cooling Technician: Mode Culver MD Eosinophils/100 WBC (Bld) 4 % Normal 1-4 [facility] Comment on above: Performed By: #### C P, CDP, PT #### [address] [place], [facility] Heating And Cooling Technician: Mode Culver MD Erythrocyte distribution width (RBC) [Ratio] 13.5 % Normal 11.8-14.4 [facility] Comment on above: Performed By: #### C P, CDP, PT #### [address] [place], [facility] Heating And Cooling Technician: Mode Culver MD Hematocrit (Bld) [Volume fraction] 44.3 % Normal 40.7-50.3 [facility] Comment on above: Performed By: #### C P, CDP, PT #### [address] [place], [facility] Heating And Cooling Technician: Mode Culver MD Hemoglobin (Bld) [Mass/Vol] 14.0 g/dL Normal 13.0-17.0 [facility] Comment on above: Performed By: #### C P, CDP, PT #### [address] [place], [facility] Heating And Cooling Technician: Mode Culver MD Immature granulocytes/100 WBC (Bld) 0 % Normal 0 [facility] Comment on above: Performed By: #### C P, CDP, PT #### [address] [place], [facility] Heating And Cooling Technician: Mode Culver MD Lymphocytes (Bld) [#/Vol] 0.61 10*3/uL Low 1.10-3.70 [facility] Comment on above: Performed By: #### C P, CDP, PT #### [address] [place], [place] [address] Heating And Cooling Technician: Mode Culver MD Lymphocytes/100 WBC (Bld) 9 % Low 24-43 [facility] Comment on above: Performed By: #### C P, CDP, PT #### [address] [place], [facility] Heating And Cooling Technician: Mode Culver MD MCH (RBC) [Entitic mass] 33.3 pg Normal 25.2-33.5 [facility] Comment on above: Performed By: #### C P, CDP, PT #### [address] [place], [facility] Heating And Cooling Technician: Mode Culver MD MCHC (RBC) [Mass/Vol] 31.6 g/dL Normal 28.4-34.8 [facility] Comment on above: Performed By: #### C P, CDP, PT #### [address] [place], [place] [id number] Heating And Cooling Technician: Mode Culver MD MCV (RBC) [Entitic vol] 105.5 fL High 82.6-102.9 [facility] Comment on above: Performed By: #### C P, CDP, PT #### [facility] [address] [place], [facility] Heating And Cooling Technician: Mode Culver MD Monocytes (Bld) [#/Vol] 0.77 10*3/uL Normal 0.10-1.20 [facility] Comment on above: Performed By: #### C P, CDP, PT #### [address] [place], [facility] Heating And Cooling Technician: Mode Culver MD Monocytes/100 WBC (Bld) 11 % Normal 3-12 [facility] Comment on above: Performed By: #### C P, CDP, PT #### [address] [place], [place] [address] Heating And Cooling Technician: Mode Culver MD Neutrophil (Seg) 75 % High 36-[address] [facility] Comment on above: Performed By: #### C P, CDP, PT #### [address] [place], [facility] Heating And Cooling Technician: Mode Culver MD NRBC Automated 0.0 per 100 WBC Normal 0.0 [facility] Comment on above: Performed By: #### C P, CDP, PT #### [address] [place], [place] [address] Heating And Cooling Technician: Mode Culver MD Platelet mean volume (Bld) [Entitic vol] 10.3 fL Normal 8.1-13.5 [facility] Comment on above: Performed By: #### C P, CDP, PT #### [address] [place] [address] Heating And Cooling Technician: Mode Culver MD Platelets (Bld) [#/Vol] 165 10*3/uL Normal 138-453 [facility] Comment on above: Performed By: #### C P, CDP, PT #### [facility] [address] [place] [address] Heating And Cooling Technician: Mode Culver MD RBC (Bld) [#/Vol] 4.20 10*6/uL Low 4.21-5.77 [facility] Comment on above: Performed By: #### C P, CDP, PT #### [facility] [address] [place] [address] Heating And Cooling Technician: Mode Culver MD WBC (Bld) [#/Vol] 6.9 10*3/uL Normal 3.5-11.3 [facility] Comment on above: Performed By: #### C P, CDP, PT #### [facility] [address] [place] [address] Heating And Cooling Technician: Mode Culver MD [facility] Albumin [Mass/Vol] 3.4 g/dL Low 3.5 - 5.2 g/dL [facility] Albumin/Globulin [Mass ratio] 1.1 {ratio} 1 - 2.5 [facility] ALP (Bld) [Catalytic activity/Vol] 98 U/L 40 - 129 U/L [facility] ALT [Catalytic activity/Vol] 9 U/L 5 - 41 U/L [facility] Anion gap [Moles/Vol] 6 mmol/L Low 9 - 17 mmol/L [facility] AST [Catalytic activity/Vol] 12 U/L NINF - 40 U/L [facility] Bilirubin [Mass/Vol] 0.29 mg/dL Low 0.3 - 1.2 mg/dL [facility] Calcium [Mass/Vol] 9.1 mg/dL 8.6 - 10. 4 mg/dL [facility] Chloride [Moles/Vol] 105 mmol/L 98 - 107 mmol/L [facility] CO2 [Moles/Vol] 31 mmol/L 20 - 31 mmol/L [facility] Creatinine [Mass/Vol] 0.76 mg/dL 0.7 - 1.2 mg/dL [facility] Free PSA/Total PSA [Mass fraction] 6.4 g/dL 6.4 - 8.3 g/dL [facility] GFR >60 60 - PINF mL/min [facility] GFR Non- >60 60 - PINF mL/min [facility] Glucose [Mass/Vol] 103 mg/dL High 70 - 99 mg/dL [facility] Interpretation and review of laboratory results Abnormal [facility] Potassium [Moles/Vol] 4.3 mmol/L 3.7 - 5.3 mmol/L [facility] Sodium [Moles/Vol] 142 mmol/L 135 - 144 mmol/L [facility] Urea nitrogen (BldV) [Mass/Vol] 23 mg/dL 8 - 23 mg/dL [facility] Urea nitrogen/Creatinine (Bld) [Mass ratio] 30 High 9 - 20 [facility] COVID-19, Rapidon 05-29-2022 SARS-CoV-2 (COVID-19) RNA AMELIE+probe Ql (Unsp spec) Not detected Not Detected [facility] Comment on above: Rapid NAAT: The [...] management decisions. Fact sheet for Healthcare Providers: https://www.fda.gov/media/443578/download Fact sheet for Patients: https://www.fda.gov/media/604658/download Methodology: Isothermal Nucleic Acid Amplification Specimen Description .NASOPHARYNGEAL SWAB [facility] Comp Metabolic Profon 2021 (cont.) Normal [facility] Comment on above: Result Comment: Aver age GFR for 60-69 years old: 85 mL/min/1.73sq m Chronic Kidney Disease: <60 mL/min/1.73sq m Kidney failure: <15 mL/min/1.73sq m eGFR calculated using average adult body mass. Additional eGFR calculator available at: http://www.[employer]/multiple_crcl_2011.htm Performed By: #### C P, CDP, PT #### [facility] [address] [place] [address] Dr[place], [place] [id number] Heating And Cooling Technician: Mode Culver MD Albumin [Mass/Vol] 3.4 g/dL Low 3.5-5.2 [facility] Comment on above: Performed By: #### C P, CDP, PT #### [address] [place], [place] [id number] Heating And Cooling Technician: Mode Culver MD Albumin/Glob Ratio 1.1 Normal 1.0-2.5 [facility] Comment on above: Performed By: #### C P, CDP, PT #### [address] [place], [place] [id number] Heating And Cooling Technician: Mode Culver MD Alkaline Phos 98 U/L Normal 40-129 [facility] Comment on above: Performed By: #### C P, CDP, PT #### [facility] [address] [place] [address] Dr[place], [place] [id number] Heating And Cooling Technician: Mode Culver MD ALT [Catalytic activity/Vol] 9 U/L Normal 5-41 [facility] Comment on above: Performed By: #### C P, CDP, PT #### [address] [place] [address] Heating And Cooling Technician: Mode Culver MD Anion gap [Moles/Vol] 6 mmol/L Low 9-17 [facility] Comment on above: Performed By: #### C P, CDP, PT #### [facility] [address] [place], [place] [id number] Heating And Cooling Technician: Mode Culver MD AST [Catalytic activity/Vol] 12 U/L Normal <40 [facility] Comment on above: Performed By: #### C P, CDP, PT #### [facility] [address] [place], [place] [id number] Heating And Cooling Technician: Mode Culver MD Bilirubin [Mass/Vol] 0.29 mg/dL Low 0.3-1.2 [facility] Comment on above: Performed By: #### C P, CDP, PT #### [address] [place], [place] [id number] Heating And Cooling Technician: Mode Culver MD BUN/CRE Ratio 30 High 9-20 [facility] Comment on above: Performed By: #### C P, CDP, PT #### [facility] [address] [place] [address] Dr[place], [place] 9053883 Heating And Cooling Technician: Mode Culver MD Calcium [Mass/Vol] 9.1 mg/dL Normal 8.6-10.4 [facility] Comment on above: Performed By: #### C P, CDP, PT #### [address] [place], [place] 0981683 Heating And Cooling Technician: Mode Culver MD Chloride [Moles/Vol] 105 mmol/L Normal 98-107 [facility] Comment on above: Performed By: #### C P, CDP, PT #### [facility] [address] [place], [place] [id number] Heating And Cooling Technician: Mode Culver MD CO2 [Moles/Vol] 31 mmol/L Normal 20-31 [facility] Comment on above: Performed By: #### C P, CDP, PT #### [facility] [address] [place] [address] Dr[place], [place] [id number] Heating And Cooling Technician: Mode Culver MD Creatinine [Mass/Vol] 0.76 mg/dL Normal 0.70-1.20 [facility] Comment on above: Performed By: #### C P, CDP, PT #### [facility] [address] [place] [address] Heating And Cooling Technician: Mode Culver MD GFR, Amer >60 Normal >[address] [facility] Comment on above: Performed By: #### C P, CDP, PT #### [facility] [address] [place] [address] Heating And Cooling Technician: Mode Culver MD GFR,non Amer >60 Normal >60 [facility] Comment on above: Performed By: #### C P, CDP, PT #### [facility] [address] [place], [place] [id number] Heating And Cooling Technician: Mode Culver MD Glucose [Mass/Vol] 103 mg/dL High 70-99 [facility] Comment on above: Performed By: #### C P, CDP, PT #### [address] [place], [place] 1002983 Heating And Cooling Technician: Mode Culver MD Potassium [Moles/Vol] 4.3 mmol/L Normal 3.7-5.3 [facility] Comment on above: Performed By: #### C P, CDP, PT #### [facility] [address] [place] [address] Dr[place], [place] [id number] Heating And Cooling Technician: Mode Culver MD Protein [Mass/Vol] 6.4 g/dL Normal 6.4-8.3 [facility] Comment on above: Performed By: #### C P, CDP, PT #### [facility] [address] [place] [address] Heating And Cooling Technician: Mode Culver MD Sodium [Moles/Vol] 142 mmol/L Normal 135-144 [facility] Comment on above: Performed By: #### C P, CDP, PT #### [facility] [address] [place] [address] Heating And Cooling Technician: Mode Culver MD Staging: Normal [facility] Comment on above: Result Comment: Stag e 1: Some kidney damage normal GFR Stage 2: Mild kidney damage GFR 60-89 Stage 3: Moderate kidney damage GFR 30-59 Stage 4: Severe kidney damage GFR 15-29 Stage 5: Severe kidney damage GFR <15 ESRD - chronic treatment by dialysis or transplant Performed By: #### C P, CDP, PT #### [facility] [address] [place], [place] [id number] Heating And Cooling Technician: Mode Culver MD Urea nitrogen [Mass/Vol] 23 mg/dL Normal 05-29 [facility] Comment on above: Performed By: #### C P, CDP, PT #### [facility] [address] [place] [address] Heating And Cooling Technician: Mode Culver MD EKG 12 LeadOrdered By: Iesha church on 05-29-2022 Atrial Rate 71 BPM [employer] Phone: P [place] 47 degrees [employer] Phone: P-R Interval 180 ms [employer] Phone: Q-T Interval 404 ms [employer] Phone: QRS Duration 96 ms [employer] Phone: QTc Calculation (Bazett) 439 ms [employer] Phone: R [place] 95 degrees [employer] Phone: T [place] 46 degrees [employer] Phone: Ventricular Rate 71 BPM [facility] [employer] Phone: BON [employer] Phone: EKG 12 Leadon 05-29-2022 Normal sinus rhythm Rightward axis Pulmonary disease pattern Abnormal ECG When compared with ECG of 25-JUL-2017 09:57, Significant changes noted. Confirmed by Iesha Stewart MD ([id number]) on 05/29/2022 7:53:42 PM [facility] Iesha Stewart MD - 05/29/2022 Normal sinus rhythm Rightward axis Pulmonary disease pattern Abnormal ECG When compared with ECG of 25-JUL-2017 09:57, Significant changes noted. Confirmed by Iesha Stewart MD ([id number]) on 05/29/2022 7:53:42 PM [facility] Work Phone: Laboratory - Chemistry and C hemistry - challengeon 05-29-2022 GFR/1.73 sq M.predicted MDRD (S/P/Bld) [Vol rate/Area] [facility] Comment on above: Average GFR for 60-6 9 years old: 85 mL/min/1.73sq m Chronic Kidney Disease: <60 mL/min/1.73sq m Kidney failure: <15 mL/min/1.73sq m eGFR calculated using average adult body mass. Additional eGFR calculator available at: http://www.[employer]/multiple_crcl_2012.htm Stage 1: Some kidney damage normal GFR Stage 2: Mild kidney damage GFR 60-89 Stage 3: Moderate kidney damage GFR 30-59 Stage 4: Severe kidney damage GFR 15-29 Stage 5: Severe kidney damage GFR <15 ESRD - chronic treatment by dialysis or transplant PTon 05-29-2022 INR Coag (PPP) [Relative time] 1.1 {INR} Normal [facility] Comment on above: Result Comment: Non-therapeutic Range: INR = 0.9-1.2 Therapeutic Range: Moderate Anticoagulant Intensity: INR = 2.0-3.0 High Anticoagulant Intensity: INR = 2.5-3.5 Performed By: #### C P, CDP, PT #### [facility] [address] [place] [address] Heating And Cooling Technician: Mode Culver MD PT Coag (PPP) [Time] 14.0 s Normal 11.5-14.2 [facility] Comment on above: Performed By: #### C P, CDP, PT #### [facility] [address] [place] [address] Heating And Cooling Technician: Mode Culver MD Protime-INRon 05-29-2022 INR Coag (Bld) [Relative time] 1.1 {INR} [facility] Comment on above: Non-therapeutic Range: INR = 0.9-1.2 Therapeutic Range: Moderate Anticoagulant Intensity: INR = 2.0-3.0 High Anticoagulant Intensity: INR = 2.5-3.5 PT Coag (PPP) [Time] 14 s [facility] [id number] 05-29-2022 SARS-CoV-2 (COVID-19) RNA AMELIE+probe Ql (Unsp spec) Not detected Normal NOTDET [facility] Comment on above: Result Comment: Rapid NAAT: [...] management decisions. Fact sheet for Healthcare Providers: https://www.fda.gov/media/632825/download Fact sheet for Patients: https://www.fda.gov/media/600732/download Methodology: Isothermal Nucleic Acid Amplification Performed By: #### B CUL2 #### [address] [place] [address] Heating And Cooling Technician: Mode Culver MD Venous Blood Gaseson 022 Kofi Test PASS Normal [facility] Comment on above: Performed By: #### V BG #### [facility] [address] [place] [address] Heating And Cooling Technician: Mode Culver MD Body Temp. 37.0 Normal [facility] Comment on above: Performed By: #### V BG #### [facility] [address] [place], [place] [id number] Heating And Cooling Technician: Mode Culver MD HCO3 (Bld) [Moles/Vol] 31.5 mmol/L High 24.0-30.0 [facility] Comment on above: Performed By: #### V BG #### [facility] [address] [place] [address] Heating And Cooling Technician: Mode Culver MD O2 Device/Flow/% ROOM AIR Normal [facility] Comment on above: Performed By: #### V BG #### [facility] [address] [place] [address] Heating And Cooling Technician: Mode Culver MD Oxygen (Bld) [Partial pressure] 30.7 mm[Hg] Normal 30.0-50.0 [facility] Comment on above: Performed By: #### V BG #### [facility] [address] [place], [place] [id number] Heating And Cooling Technician: Mode Culver MD Oxygen saturation in Blood 55.3 % Low 60.0-85.0 [facility] Comment on above: Performed By: #### V BG #### [facility] [address] [place], [place] [id number] Heating And Cooling Technician: Mode Culver MD pCO2 56.4 High 39-55 [facility] Comment on above: Performed By: #### V BG #### [facility] [address] [place] [address] Heating And Cooling Technician: Mode Culver MD pH (Bld) 7.365 [pH] Normal 7.32-7.42 [facility] Comment on above: Performed By: #### V BG #### [facility] [address] [place] [address] Heating And Cooling Technician: Mode Culver MD Positive Base Excess 4.5 mmol/L High 0.0-2.0 [facility] Comment on above: Performed By: #### V BG #### [facility] [address] [place], [place] [id number] Heating And Cooling Technician: Mode Culver MD Pt. Position SEMI-FOWLERS Normal [facility] Comment on above: Performed By: #### V BG #### [facility] [address] [place] [address] Heating And Cooling Technician: Mode Culver MD Site Drawn Left Brachial Artery Normal [facility] Comment on above: Performed By: #### V BG #### [facility] [address] [place] [address] Heating And Cooling Technician: Mode Culver MD XR CHEST PORTABLEon 05-29-20 [...] Kianna Wyman MD 05/29/22 Final result Normal [facility] Low lung volumes wit h probable bronchitis and greater bandlike opacity medial right base, either segmental atelectasis/scarring or possibly pneumonia. No radiographic CHF. [facility] EXAMINATION: ONE XRAY VIEW OF THE [...] again with degenerative findings spine and shoulders. [facility] Kianna Wyman MD - 05/29/2022 EXAMINATION: [...] atelectasis/scarring or possibly pneumonia. No radiographic CHF. [employer] Phone: Radiology Study observation (narrative) [employer] Phone: XR CHEST PORTABLEOrdered By: Kianna Wyman on 05-29-2022 [employer] Phone: LIPID PROFILEon 01-06-2022 CHOL-HDL RATIO NORM SEE BELOW Normal [facility] Comment on above: Result Comment: 3.3 - 4.4 LOW RISK 4.4 - 7.1 AVERAGE RISK 7.1 - 11.0 MODERATE RISK >11.0 HIGH RISK Performed By: #### T TERESITA, HSTROPN, CRP, CMP #### [facility] [address] [place] [address] Dr. Jarek Barrera Cholesterol [Mass/Vol] 124 mg/dL Normal <=200 [facility] Comment on above: Performed By: #### T TERESITA, HSTROPN, CRP, CMP #### [facility] [address] [address] [address] Jarek Barrera Cholesterol in HDL [Mass/Vol] 42 mg/dL Normal 40-60 [facility] Comment on above: Performed By: #### T TERESITA, HSTROPN, CRP, CMP #### [facility] [address] [place] [address] Dr. Jarek Barrera Cholesterol in LDL [Mass/Vol] 67.6 mg/dL Normal [facility] Comment on above: Performed By: #### T TERESITA, HSTROPN, CRP, CMP #### [facility] [address] [address] [address] Jarek Barrera Cholesterol.total/C holesterol in HDL [Mass ratio] 3.0 {ratio} Normal [facility] Comment on above: Performed By: #### T TERESITA, HSTROPN, CRP, CMP #### [facility] [address] [place] [address] Dr. Jarek Barrera HDL NORMAL > or = 60 mg/dl - LO W CARDIOVASCULAR RISK <40 mg/dl - HIGH CARDIOVASCULAR RISK Normal [facility] Comment on above: Performed By: #### T TERESITA, HSTROPN, CRP, CMP #### [facility] [address] [place] [address] Dr. Jarek Barrera LDL CALC NORMAL SEE BELOW Normal The [facility] Comment on above: Result Comment: <100 mg/dl OPTIMAL 100 - 129 mg/dl NEAR OR ABOVE OPTIMAL 130 - 159 mg/dl BORDERLINE HIGH 160 - 189 mg/dl HIGH >190 mg/dl VERY HIGH Performed By: #### T TERESITA, HSTROPN, CRP, CMP #### [facility] [address] [address] [address] Jarek Barrera Triglyceride [Mass/Vol] 72 mg/dL Normal <=150 [facility] Comment on above: Performed By: #### T TERESITA, HSTROPN, CRP, CMP #### [facility] [address] [address] [address] Jarek Barrera VLDL CALC 14.4 mg/dL Normal [facility] Comment on above: Performed By: #### T TERESITA, HSTROPN, CRP, CMP #### [facility] [address] [address] [address] Jarek Barrera PROF 14(COMP METB)on 022 Albumin [Mass/Vol] 2.8 g/dL Critically low 3.4-5.[address] [facility] Comment on above: Performed By: #### T TERESITA, HSTROPN, CRP, CMP #### [facility] [address] [address] [address] Jarek Barrera Albumin/Globulin [Mass ratio] 0.7 {ratio} Normal [facility] Comment on above: Performed By: #### T TERESITA, HSTROPN, CRP, CMP #### [facility] [address] [address] [address] Jarek Barrera ALP [Catalytic activity/Vol] 94 U/L Normal 46-116 [facility] Comment on above: Performed By: #### T TERESITA, HSTROPN, CRP, CMP #### [facility] [address] [address] [address] Jarek Barrera ALT [Catalytic activity/Vol] 8 U/L Critically low 16-63 [facility] Comment on above: Performed By: #### T TERESITA, HSTROPN, CRP, CMP #### [facility] [address] [place] [address] Dr. Jarek Barrera Anion gap [Moles/Vol] 10.4 mmol/L Normal [facility] Comment on above: Performed By: #### T TERESITA, HSTROPN, CRP, CMP #### [facility] [address] [address] [address] Jarek Barrera AST [Catalytic activity/Vol] 15 U/L Normal 15-37 [facility] Comment on above: Performed By: #### T TERESITA, HSTROPN, CRP, CMP #### [facility] [address] [address] [address] Jarek Barrera Bilirubin [Mass/Vol] 0.4 mg/dL Normal 0.2-1.3 [facility] Comment on above: Performed By: #### T TERESITA, HSTROPN, CRP, CMP #### [facility] [address] [place] [address] Dr. Jarek Barrera Calcium [Mass/Vol] 8.7 mg/dL Normal 8.5-10.1 [facility] Comment on above: Performed By: #### T TERESITA, HSTROPN, CRP, CMP #### [facility] [address] [place] [address] Dr. Jarek Barrera Chloride [Moles/Vol] 107 mmol/L Normal 98-107 [facility] Comment on above: Performed By: #### T TERESITA, HSTROPN, CRP, CMP #### [facility] [address] [place] [address] Dr. Jarek Barrera CO2 [Moles/Vol] 32.2 mmol/L Critically high 22.0-30.0 [facility] Comment on above: Performed By: #### T TERESITA, HSTROPN, CRP, CMP #### [facility] [address] [place] [address] Dr. Jarek Barrera Creatinine [Mass/Vol] 0.81 mg/dL Normal 0.66-1.25 [facility] Comment on above: Performed By: #### T TERESITA, HSTROPN, CRP, CMP #### [facility] [address] [place] [address] Dr. Jarek Barrera EGFR-AF SWISS >60 Normal >=60 [facility] Comment on above: Performed By: #### T TERESITA, HSTROPN, CRP, CMP #### [facility] [address] [address] [address] Jarek Barrera EGFR-NON AF SWISS >60 Normal >=60 [facility] Comment on above: Performed By: #### T TERESITA, HSTROPN, CRP, CMP #### [facility] [address] [address] [address] Jarek Barrera Globulin (S) [Mass/Vol] 4.1 g/dL Normal [facility] Comment on above: Performed By: #### T TERESITA, HSTROPN, CRP, CMP #### [facility] [address] [address] [address] Jaerk Barrera Glucose [Mass/Vol] 103 mg/dL Normal 74-106 [facility] Comment on above: Performed By: #### T TERESITA, HSTROPN, CRP, CMP #### [facility] [address] [place] [address] Dr. Jarek Barrera Potassium [Moles/Vol] 4.6 mmol/L Normal 3.4-5.0 [facility] Comment on above: Performed By: #### T TERESITA, HSTROPN, CRP, CMP #### [facility] [address] [address] [address] Jarek Barrera Protein [Mass/Vol] 6.9 g/dL Normal 6.1-8.2 [facility] Comment on above: Performed By: #### T TERESITA, HSTROPN, CRP, CMP #### [facility] [address] [address] [address] Jarek Barrera Sodium [Moles/Vol] 145 mmol/L Normal 137-145 [facility] Comment on above: Performed By: #### T TERESITA, HSTROPN, CRP, CMP #### [facility] [address] [place] [address] Dr. Jarek Barrera Urea nitrogen [Mass/Vol] 19.0 mg/dL Critically high 7.0-18.0 [facility] Comment on above: Performed By: #### T TERESITA, HSTROPN, CRP, CMP #### [facility] [address] [address] [address] Jarek Barrera Urea nitrogen/Creatinine [Mass ratio] 23.5 mg/mg Normal [facility] Comment on above: Performed By: #### T TERESITA, HSTROPN, CRP, CMP #### [facility] [address] [place] [address] Dr. Jarek Barrera XR CHEST (SINGLE VIEW [...] by: Jamar Garcia 12/27/21 Final result Normal [facility] BLOOD GASES BTYon 11-25-2021 02 MODE ROOM AIR Normal [facility] Comment on above: Performed By: #### A BG #### [facility] [address] [place] [address] Dr. Jarek Barrera ALLENIra TEST Positive Normal [facility] Comment on above: Performed By: #### A BG #### [facility] [address] [address] [address] Jarek Barrera Base excess Calc (Bld) [Moles/Vol] 2.9 mmol/L Critically high -2.0-2.0 [facility] Comment on above: Performed By: #### A BG #### [facility] [address] [place] [address] Dr. Jarek Barrera BIPAP PRESSURE Normal [facility] Comment on above: Performed By: #### A BG #### [facility] [address] [address] [address] Jarek Barrera CO2 [Moles/Vol] 28.2 mmol/L Critically high 23.0-28.0 [facility] Comment on above: Performed By: #### A BG #### [facility] [address] [address] [address] Jarek Barrera CPAP Normal [facility] Comment on above: Performed By: #### A BG #### [facility] [address] [address] [address] Jarek Barrera FIO2 [facility] Comment on above: Performed By: #### A BG #### [facility] [address] [address] [address] Jarek Barrera HCO3 (Bld) [Moles/Vol] 27.0 mmol/L Critically high 22.0-26.0 [facility] Comment on above: Performed By: #### A BG #### [facility] [address] [address] [address] Jarek Barrera LPM [facility] Comment on above: Performed By: #### A BG #### [facility] [address] [address] [address] Jarek Barrera MINUTE VOLUME Normal [facility] Comment on above: Performed By: #### A BG #### [facility] [address] [place] [address] Dr. Jarek Barrera Oxygen (Bld) [Partial pressure] 59.3 mm[Hg] Critically low 80.0-100.0 [facility] Comment on above: Performed By: #### A BG #### [facility] [address] [address] [address] Jarek Barrera Oxygen saturation in Blood 91.0 % Critically low 95.0-100.0 [facility] Comment on above: Performed By: #### A BG #### [facility] [address] [address] [address] Jarek Barrera PCO2 39.6 mmHg Normal 35.0-45.0 [facility] Comment on above: Performed By: #### A BG #### [facility] [address] [place] [address] Dr. Jarek Barrera PEEP [facility] Comment on above: Performed By: #### A BG #### [facility] [address] [place] [address] Dr. Jarek Barrera pH (Bld) 7.451 [pH] Critically high 7.350-7.450 [facility] Comment on above: Performed By: #### A BG #### [facility] [address] [place] [address] Dr. Jarek Barrera [facility] Comment on above: Performed By: #### A BG #### [facility] [address] [place] [address] Dr. Jarek Barrera [facility] Comment on above: Performed By: #### A BG #### [facility] [address] [place] [address] Dr. Jarek Barrera PUNCTURE SITE RB [facility] Comment on above: Performed By: #### A BG #### [facility] [address] [place] [address] Dr. Jarek Barrera RATE [facility] Comment on above: Performed By: #### A BG #### [facility] [address] [place] [address] Dr. Jarek Barrera VENT MODE [facility] Comment on above: Performed By: #### A BG #### [facility] [address] [place] [address] Dr. Jarek Barrera [facility] Comment on above: Performed By: #### A BG #### [facility] [address] [place] [address] Dr. Jarek Barrera CARDIAC JESSICA 3-6on 2 CK [Catalytic activity/Vol] 38 U/L Critically low 55-170 [facility] Comment on above: Performed By: #### C MREP #### [facility] [address] [place] [address] Dr. Jarek Barrera CK.MB [Mass/Vol] 0.78 ng/mL Normal <=2.37 [facility] Comment on above: Performed By: #### C MREP #### [facility] [address] [address] [address] Jarek Barrera HSTROP 7.9 pg/mL Normal 4.0-42.2 [facility] Comment on above: Result Comment: CUT- OFF POINTS HAVE BEEN ESTABLISHED BASED ON THE FOURTH UNIVERSAL DEFINITIONS OF MYOCARDIAL INFARCTION. THE UPPER REFERENCE LIMIT (URL) OF TROPONIN, DEFINED THE 99TH PERCENTILE OF cTnI DISTRIBUTION IN A REFERENCE POPULATION, HAS BEEN CONFIRMED THE DECISION THRESHOLD FOR [place] DIAGNOSIS. Performed By: #### C MREP #### [facility] [address] [address] [address] Jarek Barrera CK [Catalytic activity/Vol] 28 U/L Critically low 55-170 [facility] Comment on above: Performed By: #### T TERESITA, HSTROPN, CRP, CMP #### [facility] [address] [place] [address] Dr. Jarek Barrera CK.MB [Mass/Vol] 0.66 ng/mL Normal <=2.37 [facility] Comment on above: Performed By: #### T TERESITA, HSTROPN, CRP, CMP #### [facility] [address] [place] [address] Dr. Jarek Barrera HSTROP 10.0 pg/mL Normal 4.0-42.2 [facility] Comment on above: Result Comment: CUT- OFF POINTS HAVE BEEN ESTABLISHED BASED ON THE FOURTH UNIVERSAL DEFINITIONS OF MYOCARDIAL INFARCTION. THE UPPER REFERENCE LIMIT (URL) OF TROPONIN, DEFINED THE 99TH PERCENTILE OF cTnI DISTRIBUTION IN A REFERENCE POPULATION, HAS BEEN CONFIRMED THE DECISION THRESHOLD FOR NH DIAGNOSIS. Performed By: #### T TERESITA, HSTROPN, CRP, CMP #### [facility] [address] [place] [address] Dr. Jarek Barrera CARDIAC JESSICA ADMITon 022 CK [Catalytic activity/Vol] 32 U/L Critically low 55-170 [facility] Comment on above: Performed By: #### T TERESITA, HSTROPN, CRP, CMP #### [facility] [address] [place] [address] Dr. Jarek Barrera CK.MB [Mass/Vol] 0.71 ng/mL Normal <=2.37 [facility] Comment on above: Performed By: #### T TERESITA, HSTROPN, CRP, CMP #### [facility] [address] [place] [address] Dr. Jarek Barrera HSTROP 7.9 pg/mL Normal 4.0-42.2 [facility] Comment on above: Result Comment: CUT- OFF POINTS HAVE BEEN ESTABLISHED BASED ON THE FOURTH UNIVERSAL DEFINITIONS OF MYOCARDIAL INFARCTION. THE UPPER REFERENCE LIMIT (URL) OF TROPONIN, DEFINED THE 99TH PERCENTILE OF cTnI DISTRIBUTION IN A REFERENCE POPULATION, HAS BEEN CONFIRMED THE DECISION THRESHOLD FOR [place] DIAGNOSIS. Performed By: #### T TERESITA, HSTROPN, CRP, CMP #### [facility] [address] [place] [address] Dr. Jarek Barrera LEANNE 78.0 ng/mL Normal <=121.0 [facility] Comment on above: Performed By: #### T TERESITA, HSTROPN, CRP, CMP #### [facility] [address] [place] [address] Dr. Jarek Barrera CBC AUTO DIFFon 11-25-2021 BASO # 0.0 103/ul Normal 0.0-0.1 [facility] Comment on above: Performed By: #### C BC #### [facility] [address] [place] [address] Dr. Jarek Barrera Basophils/100 WBC (Bld) 0.1 % Critically low 0.2-2.0 [facility] Comment on above: Performed By: #### C BC #### [facility] [address] [place] [address] Dr. Jarek Barrera EO # 0.1 103/ul Normal 0.0-0.7 [facility] Comment on above: Performed By: #### C BC #### [facility] [address] [place] [address] Dr. Jarek Barrera Eosinophils/100 WBC (Bld) 1.3 % Normal 0.9-7.0 [facility] Comment on above: Performed By: #### C BC #### [facility] [address] [address] [address] Jarek Barrera Erythrocyte distribution width (RBC) [Ratio] 14.7 % Normal 11.0-15.0 [facility] Comment on above: Performed By: #### C BC #### [facility] [address] [place] [address] Dr. Jarek Barrera Hematocrit (Bld) [Volume fraction] 47.0 % Normal 42.0-54.0 [facility] Comment on above: Performed By: #### C BC #### [facility] [address] [place] [address] Dr. Jarek Barrera Hemoglobin (Bld) [Mass/Vol] 14.8 g/dL Normal 14.0-18.0 [facility] Comment on above: Performed By: #### C BC #### [facility] [address] [place] [address] Dr. Jarek Barrera IG # 0.06 10e3/ul Critically high 0.00-0.03 [facility] Comment on above: Performed By: #### C BC #### [facility] [address] [place] [address] Dr. Jarek Barrera IG % 0.7 % Critically high 0.0-0.5 [facility] Comment on above: Performed By: #### C BC #### [facility] [address] [place] [address] Dr. Jarek Barrera LYMPH # 0.8 103/ul Critically low 1.2-3.8 [facility] Comment on above: Performed By: #### C BC #### [facility] [address] [place] [address] Dr. Jarek Barrera Lymphocytes/100 WBC (Bld) 9.7 % Critically low 20.5-60.0 [facility] Comment on above: Performed By: #### C BC #### [facility] [address] [place] [address] Dr. Jarek Barrera MANUAL DIFF REQ NO Normal The [facility] Comment on above: Performed By: #### C BC #### [facility] [address] [address] [address] Jarek Barrera MCH (RBC) [Entitic mass] 31.2 pg Normal 25.9-34.0 [facility] Comment on above: Performed By: #### C BC #### [facility] [address] [address] [address] Jarek Barrera MCHC (RBC) [Mass/Vol] 31.5 g/dL Normal 29.9-35.2 [facility] Comment on above: Performed By: #### C BC #### [facility] [address] [address] [address] Jarek Barrera MCV (RBC) [Entitic vol] 99.2 fL Critically high 80.0-94.0 [facility] Comment on above: Performed By: #### C BC #### [facility] [address] [place] [address] Dr. Jarek Barrera MONO # 0.6 103/ul Normal 0.3-0.8 [facility] Comment on above: Performed By: #### C BC #### [facility] [address] [place] [address] Dr. Jarek Barrera Monocytes/100 WBC (Bld) 7.3 % Normal 1.7-12.0 [facility] Comment on above: Performed By: #### C BC #### [facility] [address] [place] [address] Dr. Jarek Barrera NEUT # 6.9 103/ul Critically high 1.4-6.5 The [facility] Comment on above: Performed By: #### C BC #### [facility] [address] [place] [address] Dr. Jarek Brarera Neutrophils/100 WBC (Bld) 80.9 % Critically high 43.0-75.0 [facility] Comment on above: Performed By: #### C BC #### [facility] [address] [place] [address] Dr. Jarek Barrera Platelet mean volume (Bld) [Entitic vol] 11.2 fL Normal 9.5-13.5 [facility] Comment on above: Performed By: #### C BC #### [facility] [address] [place], [place] [address] Dr. Jarek Barrera PLT 200 103/ul Normal 150-450 [facility] Comment on above: Performed By: #### C BC #### [facility] [address] [place], [place] [address] Dr. Jarek Barrera RBC 4.74 106/ul Normal 4.70-6.10 [facility] Comment on above: Performed By: #### C BC #### [facility] [address] [place], [place] [address] Dr. Jarek Barrera WBC 8.5 103/ul Normal 4.0-11.0 [facility] Comment on above: Performed By: #### C BC #### [facility] [address] [place] [address] NECK ST W [...] and symmetric. CAROTID SPACE: Normal in appearance. TRAFFIC ANALYST SPACE: Normal in appearance. RETROPHARYNGEAL SPACE: Normal [...] There is generalized disc space narrowing with [id number] appearance from C4 through C7. VISUALIZED BRAIN: [...] by: KRISTI GRIFFIN Date: 2021-11-25 01:54 Normal [facility] CTA CHEST WO W CONon 022 [...] ALEXX FOREMAN Date: 2021-11-25 02:19 Normal [facility] Covid-19 PCR (CVDTBH)on 11-07 SARS-CoV-2 (COVID-19) RNA AMELIE+probe Ql (Unsp spec) Detected Critically abnormal NOT DETECTED [facility] Comment on above: Result Comment: This test is not yet approved or cleared by the [place] Food and Drug Administration (FDA). This test was developed by [employer], [place], [place]. The performance characteristics of this test were validated by The [facility]. The results are not intended to be used as the sole means for clinical diagnosis or patient management decisions. The [facility] is authorized under Clinical Laboratory Improvement [...] for this test is supported by the [place] of Health and Human Service's declaration that [...] #### T TERESITA, HSTROPN, CRP, CMP #### [facility] [address] [address] [address] Jarek Barrera LACTATE/LACTIC ACIDon 2021 Lactate [Moles/Vol] 1.5 mmol/L Normal 0.7-2.0 [facility] Comment on above: Performed By: #### T TERESITA, HSTROPN, CRP, CMP #### [facility] [address] [address] [address] Jarek Barrera Lactate [Moles/Vol] 3.0 mmol/L Critically high 0.7-2.0 [facility] Comment on above: Result Comment: test repeated Performed By: #### T TERESITA, HSTROPN, CRP, CMP #### [facility] [address] [place] [address] Dr. Jarek Barrera PROF CHEM 8 (BAS METB)on Anion gap [Moles/Vol] 10.0 mmol/L Normal [facility] Comment on above: Performed By: #### T TERESITA, HSTROPN, CRP, CMP #### [facility] [address] [place] [address] Dr. Jarek Barrera Calcium [Mass/Vol] 8.1 mg/dL Critically low 8.4-10.[address] [facility] Comment on above: Performed By: #### T TERESITA, HSTROPN, CRP, CMP #### [facility] [address] [place] [address] Dr. Jarek Barrera Chloride [Moles/Vol] 110 mmol/L Critically high 98-107 [facility] Comment on above: Performed By: #### T TERESITA, HSTROPN, CRP, CMP #### [facility] [address] [place] [address] Dr. Jarek Barrera CO2 [Moles/Vol] 27.7 mmol/L Normal 22.0-30.0 [facility] Comment on above: Performed By: #### T TERESITA, HSTROPN, CRP, CMP #### [facility] [address] [address] [address] Jarek Barrera Creatinine [Mass/Vol] 0.85 mg/dL Normal 0.66-1.25 [facility] Comment on above: Performed By: #### T TERESITA, HSTROPN, CRP, CMP #### [facility] [address] [place] [address] Dr. Jarek Barrera EGFR-AF SWISS >60 Normal >=60 [facility] Comment on above: Performed By: #### T TERESITA, HSTROPN, CRP, CMP #### [facility] [address] [place] [address] Dr. Jarek Barrera EGFR-NON AF SWISS >60 Normal >=60 [facility] Comment on above: Performed By: #### T TERESITA, HSTROPN, CRP, CMP #### [facility] [address] [address] [address] Jarek Barrera Glucose [Mass/Vol] 141 mg/dL Critically high 74-106 [facility] Comment on above: Performed By: #### T TERESITA, HSTROPN, CRP, CMP #### [facility] [address] [address] [address] Jarek Barrera Potassium [Moles/Vol] 3.7 mmol/L Normal 3.4-5.0 [facility] Comment on above: Performed By: #### T TERESITA, HSTROPN, CRP, CMP #### [facility] [address] [address] [address] Jarek Barrera Sodium [Moles/Vol] 144 mmol/L Normal 137-145 [facility] Comment on above: Performed By: #### T TERESITA, HSTROPN, CRP, CMP #### [facility] [address] [address] [address] Jarek Barrera Urea nitrogen [Mass/Vol] 17.0 mg/dL Normal 9.0-20.0 [facility] Comment on above: Performed By: #### T TERESITA, HSTROPN, CRP, CMP #### [facility] [address] [address] [address] Jarek Barrera Urea nitrogen/Creatinine [Mass ratio] 20.0 mg/mg Normal [facility] Comment on above: Performed By: #### T TERESITA, HSTROPN, CRP, CMP #### [facility] [address] [address] [address] Jarek Barrera XR CHEST 1 Von [...] Tiffanie POWER Date: 2021-11-25 01:17 Normal [facility] CBC AUTO DIFFon 11-22-2021 BASO # 0.0 103/ul Normal 0.0-0.1 [facility] Comment on above: Performed By: #### T TERESITA, HSTROPN, CRP, CMP #### [facility] [address] [place] [address] Dr. Jarek Barrera Basophils/100 WBC (Bld) 0.2 % Normal 0.2-2.0 [facility] Comment on above: Performed By: #### T TERESITA, HSTROPN, CRP, CMP #### [facility] [address] [place] [address] Dr. Jarek Barrera EO # 0.0 103/ul Normal 0.0-0.7 [facility] Comment on above: Performed By: #### T TERESITA, HSTROPN, CRP, CMP #### [facility] [address] [place] [address] Dr. Jarek Barrera Eosinophils/100 WBC (Bld) 0.2 % Critically low 0.9-7.0 [facility] Comment on above: Performed By: #### T TERESITA, HSTROPN, CRP, CMP #### [facility] [address] [place] [address] Dr. Jarek Barrera Erythrocyte distribution width (RBC) [Ratio] 14.6 % Normal 11.0-15.0 [facility] Comment on above: Performed By: #### T TERESITA, HSTROPN, CRP, CMP #### [facility] [address] [place] [address] Dr. Jarek Barrera Hematocrit (Bld) [Volume fraction] 39.3 % Critically low 42.0-54.0 [facility] Comment on above: Performed By: #### T TERESITA, HSTROPN, CRP, CMP #### [facility] [address] [address] [address] Jarek Barrera Hemoglobin (Bld) [Mass/Vol] 12.4 g/dL Critically low 14.0-18.0 [facility] Comment on above: Performed By: #### T TERESITA, HSTROPN, CRP, CMP #### [facility] [address] [address] [address] Jarek Barrera IG # 0.04 10e3/ul Critically high 0.00-0.03 [facility] Comment on above: Performed By: #### T TERESITA, HSTROPN, CRP, CMP #### [facility] [address] [place] [address] Dr. Jarek Barrera IG % 0.6 % Critically high 0.0-0.5 [facility] Comment on above: Performed By: #### T TERESITA, HSTROPN, CRP, CMP #### [facility] [address] [place] [address] Dr. Jarek Barrera LYMPH # 0.9 103/ul Critically low 1.2-3.8 The [facility] Comment on above: Performed By: #### T TERESITA, HSTROPN, CRP, CMP #### [facility] [address] [place] [address] Dr. Jarek Barrera Lymphocytes/100 WBC (Bld) 14.2 % Critically low 20.5-60.0 [facility] Comment on above: Performed By: #### T TERESITA, HSTROPN, CRP, CMP #### [facility] [address] [place] [address] Dr. Jarek Barrera MANUAL DIFF REQ NO Normal The [facility] Comment on above: Performed By: #### T TERESITA, HSTROPN, CRP, CMP #### [facility] [address] [place] [address] Dr. Jarek Barrera MCH (RBC) [Entitic mass] 31.8 pg Normal 25.9-34.0 [facility] Comment on above: Performed By: #### T TERESITA HSTROPN, CRP, CMP #### [facility] [address] [place] [address] Dr. Jarek Barrera MCHC (RBC) [Mass/Vol] 31.6 g/dL Normal 29.9-35.2 [facility] Comment on above: Performed By: #### T TERESITA, HSTROPN, CRP, CMP #### [facility] [address] [place] [address] Dr. Jarek Barrera MCV (RBC) [Entitic vol] 100.8 fL Critically high 80.0-94.0 [facility] Comment on above: Performed By: #### T TERESITA, HSTROPN, CRP, CMP #### [facility] [address] [place] [address] Dr. Jarek Barrera MONO # 0.6 103/ul Normal 0.3-0.8 [facility] Comment on above: Performed By: #### T TERESITA, HSTROPN, CRP, CMP #### [facility] [address] [place] [address] Dr. Jarek Barrera Monocytes/100 WBC (Bld) 9.3 % Normal 1.7-12.0 [facility] Comment on above: Performed By: #### T TERESITA, HSTROPN, CRP, CMP #### [facility] [address] [place] [address] Dr. Jarek Barrera NEUT # 4.7 103/ul Normal 1.4-6.5 [facility] Comment on above: Performed By: #### T TERESITA, HSTROPN, CRP, CMP #### [facility] [address] [place] [address] Dr. Jarek Barrera Neutrophils/100 WBC (Bld) 75.5 % Critically high 43.0-75.0 [facility] Comment on above: Performed By: #### T TERESITA, HSTROPN, CRP, CMP #### [facility] [address] [place] [address] Dr. Jarek Barrera Platelet mean volume (Bld) [Entitic vol] 12.6 fL Normal 9.5-13.5 [facility] Comment on above: Performed By: #### T TERESITA, HSTROPN, CRP, CMP #### [facility] [address] [place] [address] [address] Jarek Barrera PLT 112 103/ul Critically low 150-450 [facility] Comment on above: Performed By: #### T TERESITA, HSTROPN, CRP, CMP #### [facility] [address] [address] [address] Jarek Barrera RBC 3.90 106/ul Critically low 4.70-6.10 [facility] Comment on above: Performed By: #### T TERESITA, HSTROPN, CRP, CMP #### [facility] [address] [address] [address] Jarek Barrera WBC 6.3 103/ul Normal 4.0-11.0 [facility] Comment on above: Performed By: #### T TERESITA, HSTROPN, CRP, CMP #### [facility] [address] [address] [address] Jarek Barrera PROF 14(COMP METB)on 022 Albumin [Mass/Vol] 1.9 g/dL Critically low 3.5-5.0 [facility] Comment on above: Performed By: #### T TERESITA, HSTROPN, CRP, CMP #### [facility] [address] [place] [address] Dr. Jarek Barrera Albumin/Globulin [Mass ratio] 0.5 {ratio} Normal [facility] Comment on above: Performed By: #### T TERESITA, HSTROPN, CRP, CMP #### [facility] [address] [place] [address] Dr. Jarek Barrera ALP [Catalytic activity/Vol] 56 U/L Normal 38-126 [facility] Comment on above: Performed By: #### T TERESITA, HSTROPN, CRP, CMP #### [facility] [address] [address] [address] Jarek Barrera ALT [Catalytic activity/Vol] 10 U/L Critically low 21-72 [facility] Comment on above: Performed By: #### T TERESITA, HSTROPN, CRP, CMP #### [facility] [address] [address] [address] Jarek Barrera Anion gap [Moles/Vol] 5.4 mmol/L Normal [facility] Comment on above: Performed By: #### T TERESITA, HSTROPN, CRP, CMP #### [facility] [address] [place] [address] [address] Jarek Barrera AST [Catalytic activity/Vol] 21 U/L Normal 17-59 [facility] Comment on above: Performed By: #### T TERESITA, HSTROPN, CRP, CMP #### [facility] [address] [place] [address] Dr. Jarek Barrera Bilirubin [Mass/Vol] 0.3 mg/dL Normal 0.2-1.3 [facility] Comment on above: Performed By: #### T TERESITA, HSTROPN, CRP, CMP #### [facility] [address] [place] [address] [address] Jarek Barrera Calcium [Mass/Vol] 8.0 mg/dL Critically low 8.4-10.[address] [facility] Comment on above: Performed By: #### T TERESITA, HSTROPN, CRP, CMP #### [facility] [address] [address] [address] Jarek Barrera Chloride [Moles/Vol] 116 mmol/L Critically high 98-107 [facility] Comment on above: Performed By: #### T TERESITA, HSTROPN, CRP, CMP #### [facility] [address] [address] [address] Jarek Barrera CO2 [Moles/Vol] 28.5 mmol/L Normal 22.0-30.0 [facility] Comment on above: Performed By: #### T TERESITA, HSTROPN, CRP, CMP #### [facility] [address] [place] [address] [address] Jarek Barrera Creatinine [Mass/Vol] 0.83 mg/dL Normal 0.66-1.25 [facility] Comment on above: Performed By: #### T TERESITA, HSTROPN, CRP, CMP #### [facility] [address] [place] [address] [address] Jarek Barrera EGFR-AF SWISS >60 Normal >=60 [facility] Comment on above: Performed By: #### T TERESITA, HSTROPN, CRP, CMP #### [facility] [address] [address] [address] Jarek Barrera EGFR-NON AF SWISS >60 Normal >=60 [facility] Comment on above: Performed By: #### T TERESITA, HSTROPN, CRP, CMP #### [facility] [address] [address] [address] Jarek Barrera Globulin (S) [Mass/Vol] 3.8 g/dL Normal [facility] Comment on above: Performed By: #### T TERESITA, HSTROPN, CRP, CMP #### [facility] [address] [address] [address] Jarek Barrera Glucose [Mass/Vol] 101 mg/dL Normal 74-106 [facility] Comment on above: Performed By: #### T TERSEITA, HSTROPN, CRP, CMP #### [facility] [address] [address] [address] Jarek Barrera Potassium [Moles/Vol] 3.9 mmol/L Normal 3.4-5.0 [facility] Comment on above: Performed By: #### T TERESITA, HSTROPN, CRP, CMP #### [facility] [address] [address] [address] Jarek Barrera Protein [Mass/Vol] 5.7 g/dL Critically low 6.1-8.[address] [facility] Comment on above: Performed By: #### T TERESITA, HSTROPN, CRP, CMP #### [facility] [address] [place] [address] Dr. Jarek Barrera Sodium [Moles/Vol] 146 mmol/L Critically high 137-145 [facility] Comment on above: Performed By: #### T TERESITA, HSTROPN, CRP, CMP #### [facility] [address] [place] [address] Dr. Jarek Barrera Urea nitrogen [Mass/Vol] 29.0 mg/dL Critically high 9.0-20.0 [facility] Comment on above: Performed By: #### T TERESITA, HSTROPN, CRP, CMP #### [facility] [address] [place] [address] Dr. Jarek Barrera Urea nitrogen/Creatinine [Mass ratio] 34.9 mg/mg Normal [facility] Comment on above: Performed By: #### T TERESITA, HSTROPN, CRP, CMP #### [facility] [address] [place] [address] Dr. Jarek Barrera CBC AUTO DIFFon 11-21-2021 BASO # 0.0 103/ul Normal 0.0-0.1 [facility] Comment on above: Performed By: #### T TERESITA, HSTROPN, CRP, CMP #### [facility] [address] [place] [address] Dr. Jarek Barrera Basophils/100 WBC (Bld) 0.2 % Normal 0.2-2.0 [facility] Comment on above: Performed By: #### T TERESITA, HSTROPN, CRP, CMP #### [facility] [address] [place] [address] Dr. Jarek Barrera EO # 0.0 103/ul Normal 0.0-0.7 [facility] Comment on above: Performed By: #### T TERESITA, HSTROPN, CRP, CMP #### [facility] [address] [place] [address] Dr. Jarek Barrera Eosinophils/100 WBC (Bld) 0.0 % Critically low 0.9-7.0 [facility] Comment on above: Performed By: #### T TERESITA, HSTROPN, CRP, CMP #### [facility] [address] [place] [address] Dr. Jarek Barrera Erythrocyte distribution width (RBC) [Ratio] 14.6 % Normal 11.0-15.0 [facility] Comment on above: Performed By: #### T TERESITA, HSTROPN, CRP, CMP #### [facility] [address] [place] [address] Dr. Jarek Barrera Hematocrit (Bld) [Volume fraction] 43.5 % Normal 42.0-54.0 [facility] Comment on above: Performed By: #### T TERESITA, HSTROPN, CRP, CMP #### [facility] [address] [place] [address] Dr. Jarek Barrera Hemoglobin (Bld) [Mass/Vol] 13.3 g/dL Critically low 14.0-18.0 [facility] Comment on above: Performed By: #### T TERESITA, HSTROPN, CRP, CMP #### [facility] [address] [place] [address] Dr. Jarek Barrera IG # 0.09 10e3/ul Critically high 0.00-0.03 [facility] Comment on above: Performed By: #### T TERESITA, HSTROPN, CRP, CMP #### [facility] [address] [place] [address] Dr. Jarek Barrera IG % 1.4 % Critically high 0.0-0.5 The [facility] Comment on above: Performed By: #### T TERESITA, HSTROPN, CRP, CMP #### [facility] [address] [place] [address] Dr. Jarek Barrera LYMPH # 0.6 103/ul Critically low 1.2-3.8 The [facility] Comment on above: Result Comment: man. dif. not rqd. cons. w/ man. dif. from 11/20/21 Performed By: #### T TERESITA, HSTROPN, CRP, CMP #### [facility] [address] [place] [address] Dr. Jarek Barrera Lymphocytes/100 WBC (Bld) 8.6 % Critically low 20.5-60.0 [facility] Comment on above: Performed By: #### T TERESITA, HSTROPN, CRP, CMP #### [facility] [address] [place] [address] Dr. Jarek Barrera MANUAL DIFF REQ NO Normal The [facility] Comment on above: Performed By: #### T TERESITA, HSTROPN, CRP, CMP #### [facility] [address] [place] [address] Dr. Jarek Barrera MCH (RBC) [Entitic mass] 31.2 pg Normal 25.9-34.0 [facility] Comment on above: Performed By: #### T TERESITA, HSTROPN, CRP, CMP #### [facility] [address] [place] [address] Dr. Jarek Barrera MCHC (RBC) [Mass/Vol] 30.6 g/dL Normal 29.9-35.2 [facility] Comment on above: Performed By: #### T TERESITA, HSTROPN, CRP, CMP #### [facility] [address] [place] [address] Dr. Jarek Barrera MCV (RBC) [Entitic vol] 102.1 fL Critically high 80.0-94.0 [facility] Comment on above: Performed By: #### T TERESITA, HSTROPN, CRP, CMP #### [facility] [address] [place] [address] Dr. Jarek Barrera MONO # 0.4 103/ul Normal 0.3-0.8 [facility] Comment on above: Performed By: #### T TERESITA, HSTROPN, CRP, CMP #### [facility] [address] [place] [address] Dr. Jarek Barrera Monocytes/100 WBC (Bld) 6.6 % Normal 1.7-12.0 [facility] Comment on above: Performed By: #### T TERESITA, HSTROPN, CRP, CMP #### [facility] [address] [place] [address] Dr. Jarek Barrera NEUT # 5.4 103/ul Normal 1.4-6.5 [facility] Comment on above: Performed By: #### T TERESITA, HSTROPN, CRP, CMP #### [facility] [address] [place] [address] Dr. Jarek Barrera Neutrophils/100 WBC (Bld) 83.2 % Critically high 43.0-75.0 [facility] Comment on above: Performed By: #### T TERESITA, HSTROPN, CRP, CMP #### [facility] [address] [address] [address] Jarek Barrera Platelet mean volume (Bld) [Entitic vol] 11.4 fL Normal 9.5-13.5 [facility] Comment on above: Performed By: #### T TERESITA, HSTROPN, CRP, CMP #### [facility] [address] [address] [address] Jarek Barrera PLT 182 103/ul Normal 150-450 [facility] Comment on above: Performed By: #### T TERESITA, HSTROPN, CRP, CMP #### [facility] [address] [address] [address] Jarek Barrera RBC 4.26 106/ul Critically low 4.70-6.10 The [facility] Comment on above: Performed By: #### T TERESITA, HSTROPN, CRP, CMP #### [facility] [address] [place], [place] [address] Dr. Jarek Barrera WBC 6.5 103/ul Normal 4.0-11.0 [facility] Comment on above: Performed By: #### T TERESITA, HSTROPN, CRP, CMP #### [facility] [address] [address] [address] Jarek Barrera ECHOCARDIO M/2D COMPLETEon 0 11-21-2021 ECHOCARDIO M/2D COMPLETE Patient: FER SANDOVAL Exam Date: 11/21/2021 : 1960 Gender:M Ordering : DR. MIKE ARMIJO . Admission #: [id number] Family : DR ORTIZ SINHA . Order #: [id number] CLICK HERE TO VIEW EXAM ECHOCARDIOGRAM REPORT [...] Area(A4C): 12.10 cm2 Left Atrium Systolic Volume(A4C): 29815 mm3 Mitral Valve MV E to A Ratio: 1.30 Deceleration Barrow: 2650 mm/s2 Mitral Valve A-Wave Peak Velocity: [...] Reid M.D. on 11/21/2021 at 17:45 Normal [facility] MAGNESIUMon 11-21-2021 Magnesium [Mass/Vol] 2.6 mg/dL Critically high 1.6-2.3 [facility] Comment on above: Performed By: #### T TERESITA, HSTROPN, CRP, CMP #### [facility] [address] [place] [address] Dr. Jarek Barrera PROF 14(COMP METB)on 022 Albumin [Mass/Vol] 2.0 g/dL Critically low 3.5-5.[address] [facility] Comment on above: Performed By: #### T TERESITA, HSTROPN, CRP, CMP #### [facility] [address] [address] [address] Jarek Barrera Albumin/Globulin [Mass ratio] 0.5 {ratio} [facility] Comment on above: Performed By: #### T TERESITA, HSTROPN, CRP, CMP #### [facility] [address] [address] [address] Jarek Barrera ALP [Catalytic activity/Vol] 60 U/L Normal 38-126 [facility] Comment on above: Performed By: #### T TERESITA, HSTROPN, CRP, CMP #### [facility] [address] [address] [address] Jarek Barrera ALT [Catalytic activity/Vol] 12 U/L Critically low 21-72 [facility] Comment on above: Performed By: #### T TERESITA, HSTROPN, CRP, CMP #### [facility] [address] [address] [address] Jarek Barrera Anion gap [Moles/Vol] 6.7 mmol/L Normal [facility] Comment on above: Performed By: #### T TERESITA, HSTROPN, CRP, CMP #### [facility] [address] [address] [address] Jarek Barrera AST [Catalytic activity/Vol] 10 U/L Critically low 17-59 [facility] Comment on above: Performed By: #### T TERESITA, HSTROPN, CRP, CMP #### [facility] [address] [address] [address] Jarek Barrera Bilirubin [Mass/Vol] 0.2 mg/dL Normal 0.2-1.3 [facility] Comment on above: Performed By: #### T TERESITA, HSTROPN, CRP, CMP #### [facility] [address] [address] [address] Jarek Barrera Calcium [Mass/Vol] 8.3 mg/dL Critically low 8.4-10.[address] [facility] Comment on above: Performed By: #### T TERESITA, HSTROPN, CRP, CMP #### [facility] [address] [address] [address] Jarek Barrera Chloride [Moles/Vol] 117 mmol/L Critically high 98-107 [facility] Comment on above: Performed By: #### T TERESITA, HSTROPN, CRP, CMP #### [facility] [address] [address] [address] Jarek Barrera CO2 [Moles/Vol] 27.8 mmol/L Normal 22.0-30.0 [facility] Comment on above: Performed By: #### T TERESITA, HSTROPN, CRP, CMP #### [facility] [address] [address] [address] Jarek Barrera Creatinine [Mass/Vol] 1.03 mg/dL Normal 0.66-1.25 [facility] Comment on above: Performed By: #### T TERESITA, HSTROPN, CRP, CMP #### [facility] [address] [place] [address] Dr. Jarek Barrera EGFR-AF SWISS >60 Normal >=60 [facility] Comment on above: Performed By: #### T TERESITA, HSTROPN, CRP, CMP #### [facility] [address] [address] [address] Jarek Barrera EGFR-NON AF SWISS >60 Normal >=60 [facility] Comment on above: Performed By: #### T TERESITA, HSTROPN, CRP, CMP #### [facility] [address] [address] [address] Jarek Barrera Globulin (S) [Mass/Vol] 4.1 g/dL Normal [facility] Comment on above: Performed By: #### T TERESITA, HSTROPN, CRP, CMP #### [facility] [address] [address] [address] Jarek Barrera Glucose [Mass/Vol] 148 mg/dL Critically high 74-106 [facility] Comment on above: Performed By: #### T TERESITA, HSTROPN, CRP, CMP #### [facility] [address] [address] [address] Jarek Barrera Potassium [Moles/Vol] 3.5 mmol/L Normal 3.4-5.0 [facility] Comment on above: Performed By: #### T TERESITA, HSTROPN, CRP, CMP #### [facility] [address] [address] [address] Jarek Barrera Protein [Mass/Vol] 6.1 g/dL Normal 6.1-8.2 [facility] Comment on above: Performed By: #### T TERESITA, HSTROPN, CRP, CMP #### [facility] [address] [address] [address] Jarek Barrera Sodium [Moles/Vol] 148 mmol/L Critically high 137-145 [facility] Comment on above: Performed By: #### T TERESITA, HSTROPN, CRP, CMP #### [facility] [address] [place] [address] Dr. Jarek Barrera Urea nitrogen [Mass/Vol] 32.0 mg/dL Critically high 9.0-20.0 [facility] Comment on above: Performed By: #### T TERESITA, HSTROPN, CRP, CMP #### [facility] [address] [place] [address] Dr. Jarek Barrera Urea nitrogen/Creatinine [Mass ratio] 31.1 mg/mg Normal [facility] Comment on above: Performed By: #### T TERESITA, HSTROPN, CRP, CMP #### [facility] [address] [place] [address] Dr. Jarek Barrera TSHon 11-21-2021 TSH 3.386 uIU/mL Normal 0.470-4.680 [facility] Comment on above: Performed By: #### T TERESITA, HSTROPN, CRP, CMP #### [facility] [address] [place] [address] Dr. Jarek Barrera TSH RANGE SEE BELOW Normal [facility] Comment on above: Result Comment: <0.3 4 UIU/ml HYPERTHYROID 0.34-5.60 UIU/ml EUTHYROID >5.60 UIU/ml HYPOTHYROID Performed By: #### T TERESITA, HSTROPN, CRP, CMP #### [facility] [address] [place] [address] Dr. Jarek Barrera CBC W MANUAL DIFFon 11-20-19 22 ATYPICAL LYMPH # Normal [facility] Comment on above: Performed By: #### T TERESITA, HSTROPN, CRP, CMP #### [facility] [address] [place] [address] Dr. Jarek Barrera ATYPICAL LYMPH % Normal [facility] Comment on above: Performed By: #### T TERESITA, HSTROPN, CRP, CMP #### [facility] [address] [place] [address] Dr. Jarek Barrera BAND # 0.1 103/ul Normal 0.0-0.3 [facility] Comment on above: Performed By: #### T TERESITA, HSTROPN, CRP, CMP #### [facility] [address] [place] [address] Dr. Jarek Barrera BAND % 2 % Normal 0-5 [facility] Comment on above: Performed By: #### T TERESITA, HSTROPN, CRP, CMP #### [facility] [address] [address] [address] Jarek Barrera BASOM # 0.07 103/ul Normal 0.00-0.10 [facility] Comment on above: Performed By: #### T TERESITA, HSTROPN, CRP, CMP #### [facility] [address] [address] [address] Jarek Barrera BASOM % 1.0 % Normal 0.2-2.0 [facility] Comment on above: Performed By: #### T TERESITA, HSTROPN, CRP, CMP #### [facility] [address] [address] [address] Jarek Barrera BLAST # Normal [facility] Comment on above: Performed By: #### T TERESITA, HSTROPN, CRP, CMP #### [facility] [address] [address] [address] Jarek Barrera BLAST % Normal [facility] Comment on above: Performed By: #### T TERESITA, HSTROPN, CRP, CMP #### [facility] [address] [address] [address] Jarek Barrera CORRECTED WBC Normal 4.0-11.0 [facility] Comment on above: Performed By: #### T TERESITA, HSTROPN, CRP, CMP #### [facility] [address] [address] [address] Jarek Barrera EOS # 0.00 103/ul Normal 0.00-0.70 [facility] Comment on above: Performed By: #### T TERESITA, HSTROPN, CRP, CMP #### [facility] [address] [address] [address] Jarek Barrera EOS% 0.0 % Critically low 0.9-7.0 [facility] Comment on above: Performed By: #### T TERESITA, HSTROPN, CRP, CMP #### [facility] [address] [address] [address] Jarek Barrera HCT 39.2 % Critically low 42.0-54.0 [facility] Comment on above: Performed By: #### T TERESITA, HSTROPN, CRP, CMP #### [facility] [address] [address] [address] Jarek Barrera HGB 12.2 g/dl Critically low 14.0-18.0 The [facility] Comment on above: Performed By: #### T TERESITA, HSTROPN, CRP, CMP #### [facility] [address] [address] [address] Jarek Barrera LYMPHM # 0.70 103/ul Critically low 1.20-3.80 The [facility] Comment on above: Performed By: #### T TERESITA, HSTROPN, CRP, CMP #### [facility] [address] [address] [address] Jarek Barrera LYMPHM% 10.0 % Critically low 20.5-60.0 [facility] Comment on above: Performed By: #### T TERESITA, HSTROPN, CRP, CMP #### [facility] [address] [address] [address] Jarek Barrera MCH 31.5 pg Normal 25.9-34.0 [facility] Comment on above: Performed By: #### T TERESITA, HSTROPN, CRP, CMP #### [facility] [address] [address] [address] Jarek Barrera MCHC 31.1 g/dl Normal 29.9-35.2 [facility] Comment on above: Performed By: #### T TERESITA, HSTROPN, CRP, CMP #### [facility] [address] [address] [address] Jarek Barrera MCV 101.3 fL Critically high 80.0-94.0 The [facility] Comment on above: Performed By: #### T TERESITA, HSTROPN, CRP, CMP #### [facility] [address] [address] [address] Jarek Barrera METAMYELOCYTE # Normal The [facility] Comment on above: Performed By: #### T TERESITA, HSTROPN, CRP, CMP #### [facility] [address] [address] [address] Jarek Barrera METAMYELOCYTE % Normal The [facility] Comment on above: Performed By: #### T TERESITA, HSTROPN, CRP, CMP #### [facility] [address] [address] [address] Jarek Barrera MONOM# 0.14 103/ul Critically low 0.30-0.80 The [facility] Comment on above: Performed By: #### T TERESITA, HSTROPN, CRP, CMP #### [facility] [address] [address] [address] Jarek Barrera MONOM% 2.0 % Normal 1.7-12.0 [facility] Comment on above: Performed By: #### T TERESITA, HSTROPN, CRP, CMP #### [facility] [address] [address] [address] Jarek Barrera MPV 11.5 fL Normal 9.5-13.5 [facility] Comment on above: Performed By: #### T TERESITA, HSTROPN, CRP, CMP #### [facility] [address] [address] [address] Jarek Barrera MYELOCYTE # Normal [facility] Comment on above: Performed By: #### T TERESITA, HSTROPN, CRP, CMP #### [facility] [address] [address] [address] Jarek Barrera MYELOCYTE % Normal [facility] Comment on above: Performed By: #### T TERESITA, HSTROPN, CRP, CMP #### [facility] [address] [address] [address] Jarek Barrera NRBC Normal [facility] Comment on above: Performed By: #### T TERESITA, HSTROPN, CRP, CMP #### [facility] [address] [address] [address] Jarek Barrera PLT 180 103/ul Normal 150-450 [facility] Comment on above: Performed By: #### T TERESITA, HSTROPN, CRP, CMP #### [facility] [address] [address] [address] Jarek Barrera RBC 3.87 106/ul Critically low 4.70-6.10 [facility] Comment on above: Performed By: #### T TERESITA, HSTROPN, CRP, CMP #### [facility] [address] [address] [address] Jarek Barrera RDW 14.6 % Normal 11.0-15.0 [facility] Comment on above: Performed By: #### T TERESITA, HSTROPN, CRP, CMP #### [facility] [address] [place] [address] Dr. Jarek Barrera SEG # 5.95 103/ul Normal 1.40-6.50 [facility] Comment on above: Performed By: #### T TERESITA, HSTROPN, CRP, CMP #### [facility] [address] [place] [address] Dr. Jarek Barerra SEG % 85.0 % Critically high 43.0-75.0 [facility] Comment on above: Performed By: #### T TERESITA, HSTROPN, CRP, CMP #### [facility] [address] [place] [address] Dr. Jarek Barrera WBC 7.0 103/ul Normal 4.0-11.0 [facility] Comment on above: Performed By: #### T TERESITA, HSTROPN, CRP, CMP #### [facility] [address] [place] [address] Dr. Jarek Barrera CRPon 11-20-2021 CRP 3.4 mg/dL Critically high <=1.0 [facility] Comment on above: Performed By: #### T TERESITA, HSTROPN, CRP, CMP #### [facility] [address] [place] [address] Dr. Jarek Barrera PROF 14(COMP METB)on 022 Albumin [Mass/Vol] 2.0 g/dL Critically low 3.5-5.[address] [facility] Comment on above: Performed By: #### T TREESITA, HSTROPN, CRP, CMP #### [facility] [address] [address] [address] Jarek Barrera Albumin/Globulin [Mass ratio] 0.5 {ratio} Normal [facility] Comment on above: Performed By: #### T TERSEITA, HSTROPN, CRP, CMP #### [facility] [address] [place] [address] Dr. Jarek Barrera ALP [Catalytic activity/Vol] 69 U/L Normal 38-126 [facility] Comment on above: Performed By: #### T TERESITA, HSTROPN, CRP, CMP #### [facility] [address] [place] [address] Dr. Jarek Barrera ALT [Catalytic activity/Vol] 12 U/L Critically low 21-72 [facility] Comment on above: Performed By: #### T TERESITA, HSTROPN, CRP, CMP #### [facility] [address] [place] [address] Dr. Jarek Barrera Anion gap [Moles/Vol] 8.8 mmol/L Normal [facility] Comment on above: Performed By: #### T TERESITA, HSTROPN, CRP, CMP #### [facility] [address] [place] [address] Dr. Jarek Barrera AST [Catalytic activity/Vol] 20 U/L Normal 17-59 [facility] Comment on above: Performed By: #### T TERESITA, HSTROPN, CRP, CMP #### [facility] [address] [address] [address] Jarek Barrera Bilirubin [Mass/Vol] 0.2 mg/dL Normal 0.2-1.3 [facility] Comment on above: Performed By: #### T TERESITA, HSTROPN, CRP, CMP #### [facility] [address] [place] [address] Dr. Jarek Barrera Calcium [Mass/Vol] 8.4 mg/dL Normal 8.4-10.2 [facility] Comment on above: Performed By: #### T TERESITA, HSTROPN, CRP, CMP #### [facility] [address] [address] [address] Jarek Barrera Chloride [Moles/Vol] 119 mmol/L Critically high 98-107 [facility] Comment on above: Performed By: #### T TERESITA, HSTROPN, CRP, CMP #### [facility] [address] [address] [address] Jarek Barrera CO2 [Moles/Vol] 26.6 mmol/L Normal 22.0-30.0 [facility] Comment on above: Performed By: #### T TERESITA, HSTROPN, CRP, CMP #### [facility] [address] [address] [address] Jarek Barrera Creatinine [Mass/Vol] 0.80 mg/dL Normal 0.66-1.25 [facility] Comment on above: Performed By: #### T TERESITA, HSTROPN, CRP, CMP #### [facility] [address] [place] [address] Dr. Jarek Barrera EGFR-AF SWISS >60 Normal >=60 [facility] Comment on above: Performed By: #### T TERESITA, HSTROPN, CRP, CMP #### [facility] [address] [place] [address] Dr. Jarek Barrera EGFR-NON AF SWISS >60 Normal >=60 [facility] Comment on above: Performed By: #### T TERESITA, HSTROPN, CRP, CMP #### [facility] [address] [address] [address] Jarek Barrera Globulin (S) [Mass/Vol] 4.4 g/dL Normal [facility] Comment on above: Performed By: #### T TERESITA, HSTROPN, CRP, CMP #### [facility] [address] [address] [address] Jarek Barrera Glucose [Mass/Vol] 166 mg/dL Critically high 74-106 [facility] Comment on above: Performed By: #### T TERESITA, HSTROPN, CRP, CMP #### [facility] [address] [place] [address] Dr. Jarek Barrera Potassium [Moles/Vol] 3.4 mmol/L Normal 3.4-5.0 [facility] Comment on above: Performed By: #### T TERESITA, HSTROPN, CRP, CMP #### [facility] [address] [place] [address] Dr. Jarek Barrera Protein [Mass/Vol] 6.4 g/dL Normal 6.1-8.2 [facility] Comment on above: Performed By: #### T TERESITA, HSTROPN, CRP, CMP #### [facility] [address] [address] [address] Jarek Barrera Sodium [Moles/Vol] 151 mmol/L Critically high 137-145 [facility] Comment on above: Performed By: #### T TERESITA, HSTROPN, CRP, CMP #### [facility] [address] [place] [address] Dr. Jarek Barrera Urea nitrogen [Mass/Vol] 33.0 mg/dL Critically high 9.0-20.0 [facility] Comment on above: Performed By: #### T TERESITA, HSTROPN, CRP, CMP #### [facility] [address] [address] [address] Jarek Barrera Urea nitrogen/Creatinine [Mass ratio] 41.2 mg/mg Normal [facility] Comment on above: Performed By: #### T TERESITA, HSTROPN, CRP, CMP #### [facility] [address] [place] [address] Dr. Jarek Barrera THEOPHYLLINEon 11-20-2021 THEOPHYLLINE 11.4 ug/mL Normal 8.0-20.0 [facility] Comment on above: Performed By: #### T TERESITA, HSTROPN, CRP, CMP #### [facility] [address] [place] [address] Dr. Jarek Barrera TROPONIN, HIGH SENSITIVITYon 11-20-2021 HSTROP 11.3 pg/mL Normal 4.0-42.2 [facility] Comment on above: Result Comment: CUT- OFF POINTS HAVE BEEN ESTABLISHED BASED ON THE FOURTH UNIVERSAL DEFINITIONS OF MYOCARDIAL INFARCTION. THE UPPER REFERENCE LIMIT (URL) OF TROPONIN, DEFINED THE 99TH PERCENTILE OF cTnI DISTRIBUTION IN A REFERENCE POPULATION, HAS BEEN CONFIRMED THE DECISION THRESHOLD FOR [place] DIAGNOSIS. Performed By: #### T TERESITA, HSTROPN, CRP, CMP #### [facility] [address] [place] [address] Dr. Jarek Barrera CBC AUTO DIFFon 11-19-2021 BASO # 0.0 103/ul Normal 0.0-0.1 [facility] Comment on above: Performed By: #### T TERESITA, HSTROPN, CRP, CMP #### [facility] [address] [place] [address] Dr. Jarek Barrera Basophils/100 WBC (Bld) 0.2 % Normal 0.2-2.0 [facility] Comment on above: Performed By: #### T TERESITA, HSTROPN, CRP, CMP #### [facility] [address] [place] [address] Dr. Jarek Barrera EO # 0.0 103/ul Normal 0.0-0.7 [facility] Comment on above: Performed By: #### T TERESITA, HSTROPN, CRP, CMP #### [facility] [address] [place] [address] Dr. Jarek Barrera Eosinophils/100 WBC (Bld) 0.0 % Critically low 0.9-7.0 [facility] Comment on above: Performed By: #### T TERESITA, HSTROPN, CRP, CMP #### [facility] [address] [place] [address] Dr. Jarek Barrera Erythrocyte distribution width (RBC) [Ratio] 15.1 % Critically high 11.0-15.0 [facility] Comment on above: Performed By: #### T TERESITA, HSTROPN, CRP, CMP #### [facility] [address] [place] [address] Dr. Jarek Barrera Hematocrit (Bld) [Volume fraction] 42.3 % Normal 42.0-54.0 [facility] Comment on above: Performed By: #### T TERESITA, HSTROPN, CRP, CMP #### [facility] [address] [address] [address] Jarek Barrera Hemoglobin (Bld) [Mass/Vol] 12.7 g/dL Critically low 14.0-18.0 [facility] Comment on above: Result Comment: Flui ds given Performed By: #### T TERESITA, HSTROPN, CRP, CMP #### [facility] [address] [address] [address] Jarek Barrera IG # 0.05 10e3/ul Critically high 0.00-0.03 [facility] Comment on above: Performed By: #### T TERESITA, HSTROPN, CRP, CMP #### [facility] [address] [address] [address] Jarek Barrera IG % 0.6 % Critically high 0.0-0.5 [facility] Comment on above: Performed By: #### T TERESITA, HSTROPN, CRP, CMP #### [facility] [address] [place] [address] Dr. Jarek Barrera LYMPH # 0.5 103/ul Critically low 1.2-3.8 [facility] Comment on above: Performed By: #### T TERESITA, HSTROPN, CRP, CMP #### [facility] [address] [address] [address] Jarek Barrera Lymphocytes/100 WBC (Bld) 6.1 % Critically low 20.5-60.0 [facility] Comment on above: Performed By: #### T TERESITA, HSTROPN, CRP, CMP #### [facility] [address] [place] [address] Dr. Jarek Barrera MANUAL DIFF REQ NO Normal The [facility] Comment on above: Performed By: #### T TERESITA, HSTROPN, CRP, CMP #### [facility] [address] [place] [address] Dr. Jarek Barrera MCH (RBC) [Entitic mass] 32.0 pg Normal 25.9-34.0 [facility] Comment on above: Performed By: #### T TERESITA, HSTROPN, CRP, CMP #### [facility] [address] [place] [address] Dr. Jarek Barrera MCHC (RBC) [Mass/Vol] 30.0 g/dL Normal 29.9-35.2 [facility] Comment on above: Performed By: #### T TERESITA, HSTROPN, CRP, CMP #### [facility] [address] [place] [address] Dr. Jarek Barrera MCV (RBC) [Entitic vol] 106.5 fL Critically high 80.0-94.0 [facility] Comment on above: Performed By: #### T TERESITA, HSTROPN, CRP, CMP #### [facility] [address] [place] [address] Dr. Jarek Barrera MONO # 0.1 103/ul Critically low 0.3-0.8 [facility] Comment on above: Performed By: #### T TERESITA, HSTROPN, CRP, CMP #### [facility] [address] [place] [address] Dr. Jarek Barrera Monocytes/100 WBC (Bld) 1.3 % Critically low 1.7-12.0 [facility] Comment on above: Performed By: #### T TERESIAT, HSTROPN, CRP, CMP #### [facility] [address] [place] [address] Dr. Jarek Barrera NEUT # 7.6 103/ul Critically high 1.4-6.5 The [facility] Comment on above: Performed By: #### T TERESITA, HSTROPN, CRP, CMP #### [facility] [address] [place] [address] Dr. Jarek Barrera Neutrophils/100 WBC (Bld) 91.8 % Critically high 43.0-75.0 [facility] Comment on above: Performed By: #### T TERESITA, HSTROPN, CRP, CMP #### [facility] [address] [place] [address] Dr. Jarek Barrera Platelet mean volume (Bld) [Entitic vol] 11.2 fL Normal 9.5-13.5 [facility] Comment on above: Performed By: #### T TERESITA, HSTROPN, CRP, CMP #### [facility] [address] [address] [address] Jarek Barrera PLT 177 103/ul Normal 150-450 [facility] Comment on above: Performed By: #### T TERESITA, HSTROPN, CRP, CMP #### [facility] [address] [address] [address] Jarek Barrera RBC 3.97 106/ul Critically low 4.70-6.10 [facility] Comment on above: Performed By: #### T TERESITA, HSTROPN, CRP, CMP #### [facility] [address] [address] [address] Jarek Barrera WBC 8.3 103/ul Normal 4.0-11.0 [facility] Comment on above: Performed By: #### T TERESITA, HSTROPN, CRP, CMP #### [facility] [address] [place] [address] Dr. Jarek Barrera CRPon 11-19-2021 CRP 7.5 mg/dL Critically high <=1.0 [facility] Comment on above: Performed By: #### P HVEN #### [facility] [address] [place] [address] Dr. Jarek Barrera PROF 14(COMP METB)on 022 Albumin [Mass/Vol] 2.1 g/dL Critically low 3.5-5.0 [facility] Comment on above: Performed By: #### C RP, HSTROPN, DALE, CMP #### [facility] [address] [place] [address] Dr. Jarek Barrera Albumin/Globulin [Mass ratio] 0.4 {ratio} Normal [facility] Comment on above: Performed By: #### C RP, HSTROPN, DALE, CMP #### [facility] [address] [place] [address] Dr. Jarek Barrera ALP [Catalytic activity/Vol] 71 U/L Normal 38-126 [facility] Comment on above: Performed By: #### C RP, HSTROPN, DALE, CMP #### [facility] [address] [place] [address] Dr. Jarek Barrera ALT [Catalytic activity/Vol] 13 U/L Critically low 21-72 [facility] Comment on above: Performed By: #### C ROMEL ROSE DALE, CMP #### [facility] [address] [place] [address] Dr. Jarek Barrera Anion gap [Moles/Vol] 13.2 mmol/L Normal [facility] Comment on above: Performed By: #### C ROMEL ROSE DALE, CMP #### [facility] [address] [place] [address] Dr. Jarek Barrera AST [Catalytic activity/Vol] 12 U/L Critically low 17-59 [facility] Comment on above: Performed By: #### C ROMEL ROSE DALE, CMP #### [facility] [address] [place] [address] Dr. Jarek Barrera Bilirubin [Mass/Vol] 0.3 mg/dL Normal 0.2-1.3 [facility] Comment on above: Performed By: #### C ROMEL ROSE DALE, CMP #### [facility] [address] [place] [address] Dr. Jarek Barrera Calcium [Mass/Vol] 8.7 mg/dL Normal 8.4-10.2 [facility] Comment on above: Performed By: #### C ROMEL ROSE DALE, CMP #### [facility] [address] [place] [address] Dr. Jarek Barrera Chloride [Moles/Vol] 117 mmol/L Critically high 98-107 [facility] Comment on above: Performed By: #### C ROMEL ROSE DALE, CMP #### [facility] [address] [place] [address] Dr. Jarek Barrera CO2 [Moles/Vol] 27.6 mmol/L Normal 22.0-30.0 [facility] Comment on above: Performed By: #### C ROMEL ROSE DALE, CMP #### [facility] [address] [place] [address] Dr. Jarek Barrera Creatinine [Mass/Vol] 1.06 mg/dL Normal 0.66-1.25 [facility] Comment on above: Performed By: #### C RP, ROMEL DALE, CMP #### [facility] [address] [place] [address] Dr. Jarek Barrera EGFR-AF SWISS >60 Normal >=60 [facility] Comment on above: Performed By: #### C RP, HSTRBRYAN DALE, CMP #### [facility] [address] [place] [address] Dr. Jarek Barrera EGFR-NON AF SWISS >60 Normal >=60 [facility] Comment on above: Performed By: #### C RP, ROMEL DALE, CMP #### [facility] [address] [place] [address] Dr. Jarek Barrera Globulin (S) [Mass/Vol] 5.0 g/dL Normal [facility] Comment on above: Performed By: #### C RPROMEL DALE, CMP #### [facility] [address] [place] [address] Dr. Jarek Barrera Glucose [Mass/Vol] 161 mg/dL Critically high 74-106 [facility] Comment on above: Performed By: #### C RP, ROMEL DALE, CMP #### [facility] [address] [place] [address] Dr. Jarek Barrera Potassium [Moles/Vol] 3.8 mmol/L Normal 3.4-5.0 [facility] Comment on above: Performed By: #### C RP, HSTRBRYAN DALE, CMP #### [facility] [address] [place] [address] Dr. Jarek Barrera Protein [Mass/Vol] 7.1 g/dL Normal 6.1-8.2 [facility] Comment on above: Performed By: #### C RP, HSTRBRYAN DALE, CMP #### [facility] [address] [place] [address] Dr. Jarek Barrera Sodium [Moles/Vol] 154 mmol/L Critically high 137-145 T [facility] Comment on above: Performed By: #### C RPROMEL THEO, CMP #### [facility] [address] [place] [address] Dr. Jarek Barrera Urea nitrogen [Mass/Vol] 30.0 mg/dL Critically high 9.0-20.0 [facility] Comment on above: Performed By: #### C RP, HSTRDALE ADAMS, CMP #### [facility] [address] [place] [address] Dr. Jarek Barrera Urea nitrogen/Creatinine [Mass ratio] 28.3 mg/mg Normal [facility] Comment on above: Performed By: #### C RPROMEL THEO, CMP #### [facility] [address] [place] [address] Dr. Jarek Barrera THEOPHYLLINEon 11-19-2021 THEOPHYLLINE 0.4 ug/mL Critically low 8.0-20.0 [facility] Comment on above: Performed By: #### P HVEN #### [facility] [address] [place] [address] Dr. Jarek Barrera TROPONIN, HIGH SENSITIVITYon 11-19-2021 HSTROP 13.5 pg/mL Normal 4.0-42.2 [facility] Comment on above: Result Comment: CUT- OFF POINTS HAVE BEEN ESTABLISHED BASED ON THE FOURTH UNIVERSAL DEFINITIONS OF MYOCARDIAL INFARCTION. THE UPPER REFERENCE LIMIT (URL) OF TROPONIN, DEFINED THE 99TH PERCENTILE OF cTnI DISTRIBUTION IN A REFERENCE POPULATION, HAS BEEN CONFIRMED THE DECISION THRESHOLD FOR [place] DIAGNOSIS. Performed By: #### P HVEN #### [facility] [address] [place] [address] Dr. Jarek Barrera BNPon 11-18-2021 Natriuretic peptide B (Bld) [Mass/Vol] 172.0 pg/mL Normal <=900.0 [facility] Comment on above: Performed By: #### P HVEN #### [facility] [address] [place] [address] Dr. Jarek Barrera CBC AUTO DIFFon 11-18-2021 BASO # 0.1 103/ul Normal 0.0-0.1 [facility] Comment on above: Performed By: #### T TERESITA, HSTROPN, CRP, CMP #### [facility] [address] [place] [address] Dr. Jarek Barrera Basophils/100 WBC (Bld) 0.6 % Normal 0.2-2.0 [facility] Comment on above: Performed By: #### T TERESITA, HSTROPN, CRP, CMP #### [facility] [address] [place] [address] Dr. Jarek Barrera EO # 0.1 103/ul Normal 0.0-0.7 [facility] Comment on above: Performed By: #### T TERESITA, HSTROPN, CRP, CMP #### [facility] [address] [place] [address] Dr. Jarek Barrera Eosinophils/100 WBC (Bld) 0.6 % Critically low 0.9-7.0 [facility] Comment on above: Performed By: #### T TERESITA, HSTROPN, CRP, CMP #### [facility] [address] [place] [address] Dr. Jarek Barrera Erythrocyte distribution width (RBC) [Ratio] 15.8 % Critically high 11.0-15.0 [facility] Comment on above: Performed By: #### T TERESITA, HSTROPN, CRP, CMP #### [facility] [address] [place] [address] Dr. Jarek Barrera Hematocrit (Bld) [Volume fraction] 45.9 % Normal 42.0-54.0 [facility] Comment on above: Performed By: #### T TERESITA, HSTROPN, CRP, CMP #### [facility] [address] [place] [address] Dr. Jarek Barrera Hemoglobin (Bld) [Mass/Vol] 14.1 g/dL Normal 14.0-18.0 [facility] Comment on above: Performed By: #### T TERESITA, HSTROPN, CRP, CMP #### [facility] [address] [place] [address] Dr. Jarek Barrera IG # 0.09 10e3/ul Critically high 0.00-0.03 [facility] Comment on above: Performed By: #### T TERESITA, HSTROPN, CRP, CMP #### [facility] [address] [address] [address] Jarek Barrera IG % 0.6 % Critically high 0.0-0.5 The [facility] Comment on above: Performed By: #### T TERESITA, HSTROPN, CRP, CMP #### [facility] [address] [place] [address] Dr. Jarek Barrera LYMPH # 0.8 103/ul Critically low 1.2-3.8 [facility] Comment on above: Performed By: #### T TERESITA, HSTROPN, CRP, CMP #### [facility] [address] [place] [address] Dr. Jarek Barrera Lymphocytes/100 WBC (Bld) 5.4 % Critically low 20.5-60.0 [facility] Comment on above: Performed By: #### T TERESITA, HSTROPN, CRP, CMP #### [facility] [address] [place] [address] Dr. Jarek Barrera MANUAL DIFF REQ NO Normal [facility] Comment on above: Performed By: #### T TERESITA, HSTROPN, CRP, CMP #### [facility] [address] [place] [address] Dr. Jarek Barrera MCH (RBC) [Entitic mass] 31.8 pg Normal 25.9-34.0 [facility] Comment on above: Performed By: #### T TERESITA, HSTROPN, CRP, CMP #### [facility] [address] [place] [address] Dr. Jarek Barrera MCHC (RBC) [Mass/Vol] 30.7 g/dL Normal 29.9-35.2 [facility] Comment on above: Performed By: #### T TERESITA, HSTROPN, CRP, CMP #### [facility] [address] [address] [address] Jarek Barrera MCV (RBC) [Entitic vol] 103.6 fL Critically high 80.0-94.0 [facility] Comment on above: Performed By: #### T TERESITA, HSTROPN, CRP, CMP #### [facility] [address] [address] [address] Jarek Barrera MONO # 0.9 103/ul Critically high 0.3-0.8 The [facility] Comment on above: Performed By: #### T TERESITA, HSTROPN, CRP, CMP #### [facility] [address] [place] [address] Dr. Jarek Barrera Monocytes/100 WBC (Bld) 5.8 % Normal 1.7-12.0 [facility] Comment on above: Performed By: #### T TERESITA, HSTROPN, CRP, CMP #### [facility] [address] [place] [address] Dr. Jarek Barrera NEUT # 13.4 103/ul Critically high 1.4-6.5 The [facility] Comment on above: Performed By: #### T TERESITA, HSTROPN, CRP, CMP #### [facility] [address] [place] [address] Dr. Jarek Barrera Neutrophils/100 WBC (Bld) 87.0 % Critically high 43.0-75.0 [facility] Comment on above: Performed By: #### T TERESITA, HSTROPN, CRP, CMP #### [facility] [address] [place] [address] Dr. Jarek Barrera Platelet mean volume (Bld) [Entitic vol] 11.4 fL Normal 9.5-13.5 [facility] Comment on above: Performed By: #### T TERESITA, HSTROPN, CRP, CMP #### [facility] [address] [place] [address] Dr. Jarek Barrera PLT 201 103/ul Normal 150-450 [facility] Comment on above: Performed By: #### T TERESITA, HSTROPN, CRP, CMP #### [facility] [address] [address] [address] Jarek Barrera RBC 4.43 106/ul Critically low 4.70-6.10 The [facility] Comment on above: Performed By: #### T TERESITA, HSTROPN, CRP, CMP #### [facility] [address] [address] [address] Jarek Barrera WBC 15.4 103/ul Critically high 4.0-11.0 The [facility] Comment on above: Performed By: #### T TERESITA, HSTROPN, CRP, CMP #### [facility] [address] [address] [address] Jarek Barrera CULTURE BLOODon 11-18-2021 Microscopic examination of blood, culture Culture Observations: NO GROWTH AT 5 DAYS. Normal [facility] Comment on above: Performed By: #### P HVEN #### [facility] [address] [place] [address] Dr. Jarek Barrera Performed By: #### T TERESITA, HSTROPN, CRP, CMP #### [facility] [address] [address] [address] Jarek Barrera Covid-19 PCR (CVDTBH)on 11-07 SARS-CoV-2 (COVID-19) RNA AMELIE+probe Ql (Unsp spec) Detected Critically abnormal NOT DETECTED [facility] Comment on above: Result Comment: This test is not yet approved or cleared by the [place] Food and Drug Administration (FDA). This test was developed by [employer], [place], [place]. The performance characteristics of this test were validated by [facility]. The results are not intended to be used as the sole means for clinical diagnosis or patient management decisions. [facility] is authorized under Clinical Laboratory Improvement [...] for this test is supported by the Mass[employer] Coordinator of Health and Human Service's declaration that [...] #### T TERESITA HSTROPN, CRP, CMP #### [facility] [address] [place] [address] Dr. Jarek Barrera LACTATE/LACTIC ACIDon 2021 Lactate [Moles/Vol] 1.5 mmol/L Normal 0.7-2.0 The [facility] Comment on above: Performed By: #### P HVEN #### [facility] [address] [place] [address] Dr. Jarek Barrera Lactate [Moles/Vol] 1.6 mmol/L Normal 0.7-2.0 The [facility] Comment on above: Performed By: #### T MERCY LOTRESAUN, CRP, CMP #### [facility] [address] [place] [address] Dr. Jarek Barrera PH VENOUS BLOODon 11-18-2021 PCO2 VENOUS 42.2 mmHg Normal 40.0-52.0 [facility] Comment on above: Performed By: #### P HVEN #### [facility] [address] [place] [address] Dr. Jarek Barrera pH VENOUS 7.492 Critically high 7.330-7.430 [facility] Comment on above: Performed By: #### P HVEN #### [facility] [address] [place] [address] Dr. Jarek Barrera PROF 14(COMP METB)on 022 Albumin [Mass/Vol] 2.3 g/dL Critically low 3.5-5.[address] [facility] Comment on above: Performed By: #### P HVEN #### [facility] [address] [place] [address] Dr. Jarek Barrera Albumin/Globulin [Mass ratio] 0.4 {ratio} Normal [facility] Comment on above: Performed By: #### P HVEN #### [facility] [address] [address] [address] Jarek Barrera ALP [Catalytic activity/Vol] 76 U/L Normal 38-126 [facility] Comment on above: Performed By: #### P HVEN #### [facility] [address] [address] [address] Jarek Barrera ALT [Catalytic activity/Vol] 16 U/L Critically low 21-72 [facility] Comment on above: Performed By: #### P HVEN #### [facility] [address] [address] [address] Jarek Barrera Anion gap [Moles/Vol] 11.7 mmol/L Normal [facility] Comment on above: Performed By: #### P HVEN #### [facility] [address] [address] [address] Jarek Barrera AST [Catalytic activity/Vol] 20 U/L Normal 17-59 [facility] Comment on above: Performed By: #### P HVEN #### [facility] [address] [address] [address] Jarek Barrera Bilirubin [Mass/Vol] 0.5 mg/dL Normal 0.2-1.3 [facility] Comment on above: Performed By: #### P HVEN #### [facility] [address] [address] [address] Jarek Barrera Calcium [Mass/Vol] 8.8 mg/dL Normal 8.4-10.2 The [facility] Comment on above: Performed By: #### P HVEN #### [facility] [address] [address] [address] Jarek Barrera Chloride [Moles/Vol] 114 mmol/L Critically high 98-107 [facility] Comment on above: Performed By: #### P HVEN #### [facility] [address] [address] [address] Jarek Barrera CO2 [Moles/Vol] 30.3 mmol/L Critically high 22.0-30.0 [facility] Comment on above: Performed By: #### P HVEN #### [facility] [address] [address] [address] Jarek Barrera Creatinine [Mass/Vol] 1.17 mg/dL Normal 0.66-1.25 [facility] Comment on above: Performed By: #### P HVEN #### [facility] [address] [address] [address] Jarek Barrera EGFR-AF SWISS >60 Normal >=60 [facility] Comment on above: Performed By: #### P HVEN #### [facility] [address] [address] [address] Jarek Barrera EGFR-NON AF SWISS >60 Normal >=60 [facility] Comment on above: Performed By: #### P HVEN #### [facility] [address] [address] [address] Jarek Barrera Globulin (S) [Mass/Vol] 5.3 g/dL Normal [facility] Comment on above: Performed By: #### P HVEN #### [facility] [address] [address] [address] Jarek Barrera Glucose [Mass/Vol] 128 mg/dL Critically high 74-106 [facility] Comment on above: Performed By: #### P HVEN #### [facility] [address] [place] [address] Dr. Jarek Barrera Potassium [Moles/Vol] 4.0 mmol/L Normal 3.4-5.0 [facility] Comment on above: Result Comment: SPEC IMEN SLIGHTLY HEMOLYZED MAY AFFECT K+ Performed By: #### P HVEN #### [facility] [address] [place] [address] Dr. Jarek Barrera Protein [Mass/Vol] 7.6 g/dL Normal 6.1-8.2 [facility] Comment on above: Performed By: #### P HVEN #### [facility] [address] [place] [address] Dr. Jarek Barrera Sodium [Moles/Vol] 152 mmol/L Critically high 137-145 [facility] Comment on above: Performed By: #### P HVEN #### [facility] [address] [place] [address] Dr. Jarek Barrera Urea nitrogen [Mass/Vol] 26.0 mg/dL Critically high 9.0-20.0 [facility] Comment on above: Performed By: #### P HVEN #### [facility] [address] [place] [address] Dr. Jarek Barrera Urea nitrogen/Creatinine [Mass ratio] 22.2 mg/mg Normal [facility] Comment on above: Performed By: #### P HVEN #### [facility] [address] [place] [address] Dr. Jarek Barrera PROTIMEon 11-18-2021 INR Coag (PPP) [Relative time] 1.17 {INR} Normal [facility] Comment on above: Performed By: #### P T #### [facility] [address] [place] [address] Dr. Jarek Barrera INR GUIDELINES SEE BELOW Normal [facility] Comment on above: Result Comment: AFTAB RED INR: 2.0 - 3.0 CONDITIONS NOT LISTED BELOW 2.5 - 3.5 FOR PROSTHETIC HEART VALVE REPLACEMENT 2.5 - 3.5 RECURRENT THROMBOSIS Performed By: #### P T #### [facility] [address] [place] [address] Dr. Jarek Barrera PT Coag (PPP) [Time] 12.5 s Critically high 9.0-11.6 [facility] Comment on above: Performed By: #### P T #### [facility] [address] [place] [address] Dr. Jarek Barrera TROPONIN, HIGH SENSITIVITYon 11-18-2021 HSTROP 13.6 pg/mL Normal 4.0-42.2 [facility] Comment on above: Result Comment: CUT- OFF POINTS HAVE BEEN ESTABLISHED BASED ON THE FOURTH UNIVERSAL DEFINITIONS OF MYOCARDIAL INFARCTION. THE UPPER REFERENCE LIMIT (URL) OF TROPONIN, DEFINED THE 99TH PERCENTILE OF cTnI DISTRIBUTION IN A REFERENCE POPULATION, HAS BEEN CONFIRMED THE DECISION THRESHOLD FOR [place] DIAGNOSIS. Performed By: #### P HVEN #### [facility] [address] [place] [address] Dr. Jarek Barrera XR CHEST 1 Von [...] by: KIANNA DONATO Date: 2021-11-18 09:49 Normal [facility] [address] CERVICAL SPINE WO CONTRAS Ton [...] Sam Ramos MD 08/10/21 Final result Normal [facility] CT CERVICAL SPINE WO CONTRAS TOrdered By: Nemesio Rios on 08-10-2021 Multilevel degenerat e change. Negative acute fracture traumatic malalignment [facility] Work Phone: EXAMINATION: CT OF THE CERVICAL [...] thyroid ultrasound this may change patient management. [employer] Phone: [place], [facility] Incoming Radiant Results From [employer] - 08/10/2021 6:31 PM EDT EXAMINATION: CT [...] degenerate change. Negative acute fracture traumatic malalignment [employer] Phone: [employer] Phone: CT HEAD WO CONTRASTon 2020 CT [...] Sam Ramos MD 08/10/21 Final result Normal [facility] CT Head WO ContrastOrdered B y: Nemesio Rios on 08-10-2021 No acute intracrania l abnormality. Chronic microvascular disease and involutional changes Bilateral mastoid and middle ear cavity opacifications. Questions could represent chronic otomastoiditis. Posterior changes status post left-sided mastoidectomy. [facility] Work Phone: EXAMINATION: CT OF THE [...] of the visualized skull or soft tissues. [employer] Phone: [place], pn Incoming Radiant Results From [employer] - 08/10/2021 6:26 PM EDT EXAMINATION: CT [...] otomastoiditis. Posterior changes status post left-sided mastoidectomy. [employer] Phone: [employer] Phone: XR HAND RIGHT (MIN 3 VIEWS)o [...] Juan Huggins DO 08/10/21 Final result Normal [facility] XR HAND RIGHT (MIN 3 VIEWS)O rdered By: Kian Suarez on 08-10-2021 Nonspecific dorsal soft tissue edema. No acute fracture demonstrated. [employer] Phone: EXAMINATION: THREE XRAY VIEWS OF THE RIGHT HAND 08/10/2021 3:49 pm COMPARISON: None. HISTORY: ORDERING SYSTEM PROVIDED HISTORY: pain TECHNOLOGIST PROVIDED HISTORY: pain FINDINGS: Three views obtained. Fingers are flexed with overall position limiting evaluation. No acute fracture demonstrated. There is diffuse nonspecific soft tissue edema along the dorsal aspect of the hand without gas collection or radiopaque foreign body. [facility]: [place], [facility] Incoming Radiant Results From [employer] - 08/10/2021 3:58 PM EDT EXAMINATION: THREE [...] soft tissue edema. No acute fracture demonstrated. [employer] Phone: [facility] Phone: OPERATIVE REPORTon OPERATIVE REPORT [address] [address] OPERATIVE REPORT PATIENT NAME: FER SANDOVAL : 1960 MED REC NO: [id number] ROOM: ACCOUNT NO: [id number] ADMIT DATE: 07/13/2021 PROVIDER: Can Giordano DPM DATE OF PROCEDURE: 07/13/2021 SURGEON: Can Giordano DPM. TOUCH UP PAINTER HAND: Ijeoma. PREOPERATIVE DIAGNOSES: Left foot hallux distal [...] all correct. CAN GIORDANO DPM [id number] Doc#: [id number] CC: [facility] Surgical Pathologyon Surgical Pathology (NOTE) -- Diagnosis [...] 1.2 x 0.8 cm fragment of granular pink-eldbetter tissue and skin. Entirely 1cs. tm Microscopic Description Microscopic examination performed. SURGICAL PATHOLOGY CONSULTATION Patient Name: FER SANDOVAL [facility] Rec: [id number] Path Number: [id number] [facility] ANATOMIC PATHOLOGY [address] [place] [address]. [place], [place] [address] Normal [facility] Comment on above: Performed By: #### B CUL2 #### [facility] [address] [place] [address] Heating And Cooling Technician: Mode Culver MD CBC AUTO DIFFon 05-16-2021 BASO # 0.1 103/ul Normal 0.0-0.1 [facility] Comment on above: Performed By: #### T TERESITA, HSTROPN, CRP, CMP #### [facility] [address] [address] [address] Jarek Barrera Basophils/100 WBC (Bld) 0.7 % Normal 0.2-2.0 [facility] Comment on above: Performed By: #### T TERESITA, HSTROPN, CRP, CMP #### [facility] [address] [address] [address] Jarek Barrera EO # 0.1 103/ul Normal 0.0-0.7 [facility] Comment on above: Performed By: #### T TERESITA, HSTROPN, CRP, CMP #### [facility] [address] [address] [address] Jarek Barrera Eosinophils/100 WBC (Bld) 0.7 % Critically low 0.9-7.0 [facility] Comment on above: Performed By: #### T TERESITA, HSTROPN, CRP, CMP #### [facility] [address] [address] [address] Jarek Barrera Erythrocyte distribution width (RBC) [Ratio] 12.8 % Normal 11.0-15.0 [facility] Comment on above: Performed By: #### T TERESITA, HSTROPN, CRP, CMP #### [facility] [address] [address] [address] Jarek Barrera Hematocrit (Bld) [Volume fraction] 49.0 % Normal 42.0-54.0 [facility] Comment on above: Performed By: #### T TERESITA, HSTROPN, CRP, CMP #### [facility] [address] [place] [address] Dr. Jarek Barrera Hemoglobin (Bld) [Mass/Vol] 16.3 g/dL Normal 14.0-18.0 [facility] Comment on above: Performed By: #### T TERESITA, HSTROPN, CRP, CMP #### [facility] [address] [place] [address] Dr. Jarek Barrera IG # 0.03 10e3/ul Normal 0.00-0.03 [facility] Comment on above: Performed By: #### T TERESITA, HSTROPN, CRP, CMP #### [facility] [address] [place] [address] Dr. Jarek Barrera IG % 0.3 % Normal 0.0-0.5 [facility] Comment on above: Performed By: #### T TERESITA, HSTROPN, CRP, CMP #### [facility] [address] [place] [address] Dr. Jarek Barrera LYMPH # 1.1 103/ul Critically low 1.2-3.8 The [facility] Comment on above: Performed By: #### T TERESITA, HSTROPN, CRP, CMP #### [facility] [address] [place] [address] Dr. Jarek Barrera Lymphocytes/100 WBC (Bld) 9.9 % Critically low 20.5-60.0 [facility] Comment on above: Performed By: #### T TERESITA, HSTROPN, CRP, CMP #### [facility] [address] [address] [address] Jarek Barrera MANUAL DIFF REQ NO Normal [facility] Comment on above: Performed By: #### T TERESITA, HSTROPN, CRP, CMP #### [facility] [address] [address] [address] Jarek Barrera MCH (RBC) [Entitic mass] 32.9 pg Normal 25.9-34.0 [facility] Comment on above: Performed By: #### T TERESITA, HSTROPN, CRP, CMP #### [facility] [address] [address] [address] Jarek Barrera MCHC (RBC) [Mass/Vol] 33.3 g/dL Normal 29.9-35.2 [facility] Comment on above: Performed By: #### T TERESITA, HSTROPN, CRP, CMP #### [facility] [address] [address] [address] Jarek Barrera MCV (RBC) [Entitic vol] 98.8 fL Critically high 80.0-94.0 [facility] Comment on above: Performed By: #### T TERESITA, HSTROPN, CRP, CMP #### [facility] [address] [address] [address] Jarek Barrera MONO # 1.0 103/ul Critically high 0.3-0.8 The [facility] Comment on above: Performed By: #### T TERESITA, HSTROPN, CRP, CMP #### [facility] [address] [address] [address] Jarek Barrera Monocytes/100 WBC (Bld) 8.5 % Normal 1.7-12.0 [facility] Comment on above: Performed By: #### T TERESITA, HSTROPN, CRP, CMP #### [facility] [address] [place] [address] Dr. Jarek Barrera NEUT # 9.0 103/ul Critically high 1.4-6.5 The [facility] Comment on above: Performed By: #### T TERESITA, HSTROPN, CRP, CMP #### [facility] [facility] [address] [address] [address] Jarek Barrera Neutrophils/100 WBC (Bld) 79.9 % Critically high 43.0-75.0 [facility] Comment on above: Performed By: #### T TERESITA, HSTROPN, CRP, CMP #### [facility] [address] [address] [address] Jarek Barrera Platelet mean volume (Bld) [Entitic vol] 9.8 fL Normal 9.5-13.5 [facility] Comment on above: Performed By: #### T TERESITA, HSTROPN, CRP, CMP #### [facility] [address] [address] [address] Jarek Barrera PLT 226 103/ul Normal 150-450 [facility] Comment on above: Performed By: #### T TERESITA, HSTROPN, CRP, CMP #### [facility] [address] [place] [address] Dr. Jarek Barrera RBC 4.96 106/ul Normal 4.70-6.10 [facility] Comment on above: Performed By: #### T TERESITA, HSTROPN, CRP, CMP #### [facility] [address] [place] [address] Dr. Jarek Barrera WBC 11.3 103/ul Critically high 4.0-11.0 [facility] Comment on above: Performed By: #### T TERESITA, HSTROPN, CRP, CMP #### [facility] [address] [place] [address] Dr. Jarek Barrera LIPID PROFILEon 05-16-2021 CHOL-HDL RATIO NORM SEE BELOW Normal [facility] Comment on above: Result Comment: 3.3 - 4.4 LOW RISK 4.4 - 7.1 AVERAGE RISK 7.1 - 11.0 MODERATE RISK >11.0 HIGH RISK Performed By: #### T TERESITA, HSTROPN, CRP, CMP #### [facility] [address] [place] [address] Dr. Jarek Barrera Cholesterol [Mass/Vol] 153 mg/dL Normal <=200 [facility] Comment on above: Performed By: #### T TERESITA, HSTROPN, CRP, CMP #### [facility] [address] [address] [address] Jarek Barrera Cholesterol in HDL [Mass/Vol] 55 mg/dL Normal [facility] Comment on above: Performed By: #### T TERESITA, HSTROPN, CRP, CMP #### [facility] [address] [address] [address] Jarek Barrera Cholesterol in LDL [Mass/Vol] 75.6 mg/dL Normal [facility] Comment on above: Performed By: #### T TERESITA, HSTROPN, CRP, CMP #### [facility] [address] [address] [address] Jarek Barrera Cholesterol.total/C holesterol in HDL [Mass ratio] 2.8 {ratio} Normal [facility] Comment on above: Performed By: #### T TERESITA, HSTROPN, CRP, CMP #### [facility] [address] [address] [address] Jarek Barrera HDL NORMAL > or = 60 mg/dl - LO W CARDIOVASCULAR RISK <40 mg/dl - HIGH CARDIOVASCULAR RISK Normal [facility] Comment on above: Performed By: #### T TERESITA, HSTROPN, CRP, CMP #### [facility] [address] [address] [address] Jarek Barrera LDL CALC NORMAL SEE BELOW Normal [facility] Comment on above: Result Comment: <100 mg/dl OPTIMAL 100 - 129 mg/dl NEAR OR ABOVE OPTIMAL 130 - 159 mg/dl BORDERLINE HIGH 160 - 189 mg/dl HIGH >190 mg/dl VERY HIGH Performed By: #### T TERESITA, HSTROPN, CRP, CMP #### [facility] [address] [address] [address] Jarek Barrera Triglyceride [Mass/Vol] 112 mg/dL Normal <=150 [facility] Comment on above: Performed By: #### T TERESITA, HSTROPN, CRP, CMP #### [facility] [address] [place] [address] Dr. Jarek Barrera VLDL CALC 22.4 mg/dL Normal [facility] Comment on above: Performed By: #### T TERESITA, HSTROPN, CRP, CMP #### [facility] [address] [place] [address] Dr. Jarek Barrera PROF 14(COMP METB)on 021 Albumin [Mass/Vol] 3.0 g/dL Critically low 3.5-5.[address] [facility] Comment on above: Performed By: #### T TERESITA, HSTROPN, CRP, CMP #### [facility] [address] [address] [address] Jarek Barrera Albumin/Globulin [Mass ratio] 0.7 {ratio} Normal [facility] Comment on above: Performed By: #### T TERESITA, HSTROPN, CRP, CMP #### [facility] [address] [place] [address] Dr. Jarek Barrera ALP [Catalytic activity/Vol] 78 U/L Normal 38-126 [facility] Comment on above: Performed By: #### T TERESIAT, HSTROPN, CRP, CMP #### [facility] [address] [address] [address] Jarek Barrera ALT [Catalytic activity/Vol] 26 U/L Normal 21-72 [facility] Comment on above: Performed By: #### T TERESITA, HSTROPN, CRP, CMP #### [facility] [address] [address] [address] Jarek Barrera Anion gap [Moles/Vol] 9.1 mmol/L Normal [facility] Comment on above: Performed By: #### T TERESITA, HSTROPN, CRP, CMP #### [facility] [address] [place] [address] Dr. Jarek Barrera AST [Catalytic activity/Vol] 26 U/L Normal 17-59 [facility] Comment on above: Performed By: #### T TERESITA, HSTROPN, CRP, CMP #### [facility] [address] [place] [address] Dr. Jarek Barrera Bilirubin [Mass/Vol] 0.4 mg/dL Normal 0.2-1.3 [facility] Comment on above: Performed By: #### T TERESITA, HSTROPN, CRP, CMP #### [facility] [address] [place] [address] Dr. Jarek Barrera Calcium [Mass/Vol] 9.1 mg/dL Normal 8.4-10.2 [facility] Comment on above: Performed By: #### T TERESITA, HSTROPN, CRP, CMP #### [facility] [address] [address] [address] Jarek Barrera Chloride [Moles/Vol] 101 mmol/L Normal 98-107 [facility] Comment on above: Performed By: #### T TERESITA, HSTROPN, CRP, CMP #### [facility] [address] [place] [address] Dr. Jarek Barrera CO2 [Moles/Vol] 33.4 mmol/L Critically high 22.0-30.0 [facility] Comment on above: Performed By: #### T TERESITA, HSTROPN, CRP, CMP #### [facility] [address] [place] [address] Dr. Jarek Barrera Creatinine [Mass/Vol] 1.06 mg/dL Normal 0.66-1.25 [facility] Comment on above: Performed By: #### T TERESITA, HSTROPN, CRP, CMP #### [facility] [address] [place] [address] Dr. Jarek Barrera EGFR-AF SWISS >60 Normal >=60 [facility] Comment on above: Performed By: #### T TERESITA, HSTROPN, CRP, CMP #### [facility] [address] [place] [address] Dr. Jarek Barrera EGFR-NON AF SWISS >60 Normal >=60 [facility] Comment on above: Performed By: #### T TERESITA, HSTROPN, CRP, CMP #### [facility] [address] [place] [address] Dr. Jarek Barrera Globulin (S) [Mass/Vol] 4.3 g/dL Normal [facility] Comment on above: Performed By: #### T TERESITA, HSTROPN, CRP, CMP #### [facility] [address] [address] [address] Jarek Barrera Glucose [Mass/Vol] 141 mg/dL Critically high 74-106 [facility] Comment on above: Performed By: #### T TERESITA, HSTROPN, CRP, CMP #### [facility] [address] [address] [address] Jarek Barrera Potassium [Moles/Vol] 3.5 mmol/L Normal 3.4-5.0 [facility] Comment on above: Performed By: #### T TERESITA, HSTROPN, CRP, CMP #### [facility] [address] [address] [address] Jarek Barrera Protein [Mass/Vol] 7.3 g/dL Normal 6.1-8.2 [facility] Comment on above: Performed By: #### T TERESITA, HSTROPN, CRP, CMP #### [facility] [address] [address] [address] Jarek Barrera Sodium [Moles/Vol] 140 mmol/L Normal 137-145 [facility] Comment on above: Performed By: #### T TERESITA, HSTROPN, CRP, CMP #### [facility] [address] [address] [address] Jarek Barrera Urea nitrogen [Mass/Vol] 21.0 mg/dL Critically high 9.0-20.0 [facility] Comment on above: Performed By: #### T TERESITA, HSTROPN, CRP, CMP #### [facility] [address] [address] [address] Jarek Barrera Urea nitrogen/Creatinine [Mass ratio] 19.8 mg/mg Normal [facility] Comment on above: Performed By: #### T TERESITA, HSTROPN, CRP, CMP #### [facility] [address] [address] [address] Jarek Barrera Surgical Pathologyon 020 Surgical [...] NONGYNECOLOGICAL CYTOPATHOLOGY CONSULTATION Patient Name: FER SANDOVAL [facility] Rec: [id number] Path Number: [id number] [facility] ANATOMIC PATHOLOGY [address] [place] [address]. [place], [place] [address] [place] BIOPSY THYROIDon 07-27-20 20 Successful ultrasound-guided fine-needle aspiration of the thyroid [place] PROCEDURE: ULTRASOUN D GUIDED THYROID FNA 07/26/2020 COMPARISON: Ultrasound of the head and neck from 06/28/2020. HISTORY: ORDERING SYSTEM PROVIDED HISTORY: Dysphagia, unspecified type TECHNOLOGIST PROVIDED HISTORY: thyroid nodule TECHNIQUE: Informed consent was obtained after the procedure was discussed in detail including the risk, benefits, and alternatives. [place] protocol was followed. The neck was prepped and draped in sterile fashion and local anesthesia was achieved with lidocaine. 25 gauge needle was advanced under ultrasound guidance into an enlarged left thyroid and fine-needle aspiration was performed. 4 passes were performed and the patient tolerated the procedure well. FINDINGS: Good needle position within the left thyroid lobe demonstrated. [place] Margarita Chin Incoming Radiant Results From [employer] - 07/27/2020 12:51 PM EDT PROCEDURE: ULTRASOUND GUIDED THYROID FNA 07/26/2020 COMPARISON: Ultrasound of the head and neck from 06/28/2020. HISTORY: ORDERING SYSTEM PROVIDED HISTORY: Dysphagia, unspecified type TECHNOLOGIST PROVIDED HISTORY: thyroid nodule TECHNIQUE: Informed consent was obtained after the procedure was discussed in detail including the risk, benefits, and alternatives. [place] protocol was followed. The neck was prepped [...] Successful ultrasound-guided fine-needle aspiration of the thyroid [place] T4, Freeon 06-28-2020 Interpretation and review of laboratory results Abnormal [place] Thyroxine, Free 0.82 ng/dL Low 0.93 - 1.7 ng/dL [place] TSH without Reflexon 020 TSH Qn 4.41 m[IU]/L [place] HEAD NECK SOFT TISSUE THY [...] in 1, 2, 3, and 5 years [place] EXAMINATION: THYROID ULTRASOUND 06/28/2020 COMPARISON: None. [...] 2. Echogenicity: Hypoechoic (2) heterogeneous 3. Shape: [id number] (0) 4. Margins: Ill-defined (0) 5. Echogenic foci: None (0) ACR TI-RADS total points: 4 ACR TI-RADS risk category: TR4 Cervical lymphadenopathy: No abnormal lymph nodes in the imaged portions of the neck. [place] Giuseppe, Mhpn Incoming Radiant Results From [employer] - 06/28/2020 4:29 PM EDT EXAMINATION: THYROID [...] 2. Echogenicity: Hypoechoic (2) heterogeneous 3. Shape: [id number] (0) 4. Margins: Ill-defined (0) 5. Echogenic [...] in 1, 2, 3, and 5 years [place] Basic Metabolic Panelon 08-2 Anion gap [Moles/Vol] 8 mmol/L Low 9 - 17 mmol/L [place] Bun/Cre Ratio 25 High [place] Calcium [Mass/Vol] 9.3 mg/dL 8.6 - 10. 4 mg/dL [place] Chloride [Moles/Vol] 104 mmol/L 98 - 107 mmol/L [place] CO2 [Moles/Vol] 29 mmol/L 20 - 31 mmol/L [place] Creatinine [Mass/Vol] 0.97 mg/dL 0.7 - 1.2 mg/dL [place] GFR >60 >60 mL/min [place] GFR Non- >60 >60 mL/min [place] Glucose [Mass/Vol] 115 mg/dL High 70 - 99 mg/dL [place] Interpretation and review of laboratory results Abnormal [place] Potassium [Moles/Vol] 4.9 mmol/L 3.7 - 5.3 mmol/L [place] Sodium [Moles/Vol] 141 mmol/L 135 - 144 mmol/L [place] Urea nitrogen [Mass/Vol] 24 mg/dL High 8 - 23 mg/dL [place] CBC Auto Differentialon 05-08 Basophils (Bld) [#/Vol] 0.09 10*3/uL [place] Basophils/100 WBC (Bld) 1 % 0 - 2 % [place] Differential Type NOT REPORTED [place] Eosinophils (Bld) [#/Vol] 0.17 10*3/uL [place] Eosinophils/100 WBC (Bld) 2 % 1 - 4 % [place] Erythrocyte distribution width (RBC) [Ratio] 12.6 % 11.8 - 14.4 % [place] Hematocrit (Bld) [Volume fraction] 46.0 % 40.7 - 50.3 % [place] Hemoglobin (Bld) [Mass/Vol] 15.4 g/dL 13 - 17 g/dL [place] Immature granulocytes (Bld) [#/Vol] 0 % 0 [place] Immature granulocytes (Bld) [#/Vol] 0.03 10*3/uL [place] Interpretation and review of laboratory results Abnormal [place] Lymphocytes (Bld) [#/Vol] 1.15 10*3/uL [place] Lymphocytes/100 WBC (Bld) 16 % Low 24 - 43 % [place] MCH (RBC) [Entitic mass] 32.7 pg 25.2 - 33.5 pg [place] MCHC (RBC) [Mass/Vol] 33.5 g/dL 28.4 - 34.8 g/dL [place] MCV (RBC) [Entitic vol] 97.7 fL 82.6 - 102.9 fL [place] Monocytes (Bld) [#/Vol] 1.12 10*3/uL [place] Monocytes/100 WBC (Bld) 15 % High 3 - 12 % [place] Platelet mean volume (Bld) [Entitic vol] 10.0 fL 8.1 - 13.5 fL [place] Platelets (Bld) [#/Vol] NOT REPORTED [place] Platelets (Bld) [#/Vol] 171 10*3/uL [place] RBC (Bld) [#/Vol] 4.71 10*6/uL 4.21 - 5.7 7 m/uL [place] RBC morphology finding Nom (Bld) NOT REPORTED [place] Segmented neutrophils/100 WBC (Bld) 66 % High 36 - 65 % [place] Segs Absolute 4.84 [place] WBC (Bld) [#/Vol] 7.4 10*3/uL [place] WBC (Bld) [#/Vol] 0.0 10*3/uL 0.0 per 10 0 WBC [place] WBC Morphology NOT REPORTED [place], [place] CT Head WO Contraston 2019 Giuseppe, Mhpn Incoming Radiant Results From [employer] - 06/02/2020 4:20 PM EDT EXAMINATION: CT [...] KRISTI WEST at 4:17 pm on 06/02/2020. [place] EXAMINATION: CT OF THE HEAD WITHOUT [...] of the visualized skull or soft tissues. [place] 1. No acute intracranial abnormality. 2. 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 3. Stable diffuse parenchymal volume loss with mild chronic white matter microvascular ischemic changes. 4. Bilateral middle ear and mastoid effusions and bilateral maxillary sinus mucoperiosteal thickening. Findings were discussed with KRISTI WEST at 4:17 pm on 06/02/2020. [place] CTA HEAD NECK W CONTRASTon 0 [...] mass or mass effect. Right frontal encephalomalacia. [place] Giuseppe, Mhpn Incoming Radiant Results From [employer] - 06/02/2020 6:42 PM EDT EXAMINATION: CTA [...] J Am Tiffanie Radiol. 2015 Nov;12(2): 143-50 [place] 1. No acute arterial abnormality or hemodynamically significant arterial stenosis in the head or neck. 2. Heterogeneous enlargement of the thyroid gland. Nonemergent follow-up thyroid ultrasound is recommended for further evaluation if not previously performed. Reference: J Am Tiffanie Radiol. 2014;12(2): 143-50 [place] Magnesiumon 06-02-2020 Magnesium [Mass/Vol] 2.4 mg/dL 1.6 - 2.6 mg/dL [place] Metabolic Panelon 06-02-2020 GFR/1.73 sq M predicted among non-blacks MDRD (S/P/Bld) [Vol rate/Area] [place] Comment on above: Stage 1: Some [...] body mass. Additional eGFR calculator available at: http://www.[employer]/multiple_crcl_2012.htm XR CHEST STANDARD (2 VW)on 0 01-20-2020 No acute cardiopulmonary disease. [place] EXAMINATION: TWO XRA Y VIEWS OF THE CHEST 01/20/2020 8:20 am COMPARISON: 09/06/2019 HISTORY: ORDERING SYSTEM PROVIDED HISTORY: Cough TECHNOLOGIST PROVIDED HISTORY: cough FINDINGS: The heart and mediastinal structures are stable. The pulmonary vasculature is normal. Lungs are clear. Severe bilateral shoulder arthritis is noted. [place] Giuseppe, Mhpn Incoming Radiant Results From [employer] - 01/20/2020 8:37 AM EDT EXAMINATION: TWO XRAY VIEWS OF THE CHEST 01/20/2020 8:20 am COMPARISON: 09/06/2019 HISTORY: ORDERING SYSTEM PROVIDED HISTORY: Cough TECHNOLOGIST PROVIDED HISTORY: cough FINDINGS: The heart and mediastinal structures are stable. The pulmonary vasculature is normal. Lungs are clear. Severe bilateral shoulder arthritis is noted. IMPRESSION: No acute cardiopulmonary disease. [place] EGDOrdered By: Nemesio Mayen on 11-02-2019 No dictation [employer] Work Phone: ED Clinical Summaryon 2018 ED Clinical Summary [id number] [place], [place] [id number] ED Clinical Summary Person Information Name: Fer Sandoval/Walter_Cliff Age: 59 Years : 1960 Sex: Male PCP: Parth MIX, Jessica Mcmillan Marital Status: Single Phone: Race: White Ethnicity: Not or Language: Vietnamese Visit Reason: Difficulty swallowing; Difficulty swallowing Acuity: 3 Enc Type: Emergency Med Service: Emergency Medicine Arrival: 09/06/2019 22:17:27 Discharge: 09/06/2019 22:45:00 LOS: 000 00:28 Checkin: 09/06/2019 22:17:27 Checkout: 09/06/2019 22:45:00 Dispo Type: Other Healthcare Facility Address: [address] [place] [address] [place] [id number] Provider Notes: Diagnosis: 1:Esophageal obstruction due to [...] Provider 09/06/2019 22:18:37 09/06/2019 22:24:27 Tono MIX, [facility] ED Provider 09/06/2019 22:18:43 09/06/2019 22:24:36 Fer Page III, MD ED Provider 09/06/2019 22:24:34 Kat Villareal ED Nurse 09/06/2019 22:31:48 Follow up: With: Address: When: Jessica Alba [address], [place] [address] [phone] Business (1) Within 2 to 4 days Discharge Orders: Discharge Patient 09/06/19 22:24:00 EST, Discharge to Home, Self, Esophageal obstruction due to food impaction Patient Education Information: ESOPHAGEAL FOREIGN BODY, [facility]olved [facility] Po[facility] Help line: . [facility] Hotline: [place] Tobacco Quit Line: [facility] ([place], [place]) [address]: [phone] [place], [place]) [address]: [phone] [facility] [address] [place], [place]: [phone] Normal [facility] ED Note-Physicianon 09-07-20 ED Note-Physician Chief Complaint pt tx from [facility], pt coughed up food bolus, chewed it up, and swallowed it History of Present Illness Patient sent by EMS from [facility] after he presented there with esophageal food bolus. He was eating a hotdog Choked on some of it and was unable to clear it. He presented to the ED and [place] but they did not have GI coverage so they transferred him here to [place]. In route EMS reports that he had [...] Page III, MD 09/07/19 02:16 EST Normal [facility] Basic Metabolic Panelon 12-0 Anion gap [Moles/Vol] 9 mmol/L 9 - 17 mmol/L [place] Bun/Cre Ratio 25 High [place] Calcium [Mass/Vol] 9.0 mg/dL 8.6 - 10. 4 mg/dL [place] Chloride [Moles/Vol] 101 mmol/L 98 - 107 mmol/L [place] CO2 [Moles/Vol] 28 mmol/L 20 - 31 mmol/L [place] Creatinine [Mass/Vol] 0.8 mg/dL 0.7 - 1.2 mg/dL [place] GFR >60 >60 mL/min [place] GFR Non- >60 >60 mL/min [place] Glucose [Mass/Vol] 116 mg/dL High 70 - 99 mg/dL [place] Interpretation and review of laboratory results Abnormal [place] Potassium [Moles/Vol] 4.5 mmol/L 3.7 - 5.3 mmol/L [place] Sodium [Moles/Vol] 138 mmol/L 135 - 144 mmol/L [place] Urea nitrogen [Mass/Vol] 20 mg/dL 8 - 23 mg/dL [place] CBC auto differentialon 12-0 -2018 Basophils (Bld) [#/Vol] 0.08 10*3/uL [place] Basophils/100 WBC (Bld) 1 % 0 - 2 % [place] Differential Type NOT REPORTED [place] Eosinophils (Bld) [#/Vol] 0.19 10*3/uL [place] Eosinophils/100 WBC (Bld) 3 % 1 - 4 % [place] Erythrocyte distribution width (RBC) [Ratio] 12.9 % 11.8 - 14.4 % [place] Hematocrit (Bld) [Volume fraction] 43.6 % 40.7 - 50.3 % [place] Hemoglobin (Bld) [Mass/Vol] 14.3 g/dL 13 - 17 g/dL [place] Immature granulocytes (Bld) [#/Vol] 10*3/uL [place] Immature granulocytes (Bld) [#/Vol] 0 % 0 [place] Interpretation and review of laboratory results Abnormal [place] Lymphocytes (Bld) [#/Vol] 0.82 10*3/uL Low [place] Lymphocytes/100 WBC (Bld) 13 % Low 24 - 43 % [place] MCH (RBC) [Entitic mass] 33.1 pg 25.2 - 33.5 pg [place] MCHC (RBC) [Mass/Vol] 32.8 g/dL 28.4 - 34.8 g/dL [place] MCV (RBC) [Entitic vol] 100.9 fL 82.6 - 102.9 fL [place] Monocytes (Bld) [#/Vol] 0.77 10*3/uL [place] Monocytes/100 WBC (Bld) 12 % 3 - 12 % [place] Platelet mean volume (Bld) [Entitic vol] 9.5 fL 8.1 - 13.5 fL [place] Platelets (Bld) [#/Vol] NOT REPORTED [place] Platelets (Bld) [#/Vol] 173 10*3/uL [place] RBC (Bld) [#/Vol] 4.32 10*6/uL 4.21 - 5.7 7 m/uL [place] RBC morphology finding Nom (Bld) NOT REPORTED [place] Segmented neutrophils/100 WBC (Bld) 71 % High 36 - 65 % [place] Segs Absolute 4.34 [place] WBC (Bld) [#/Vol] 0.0 10*3/uL 0.0 per 10 0 WBC [place] WBC (Bld) [#/Vol] 6.2 10*3/uL [place] WBC Morphology NOT REPORTED [place] Metabolic Panelon 09-06-2019 GFR/1.73 sq M predicted among non-blacks MDRD (S/P/Bld) [Vol rate/Area] [place] Comment on above: Stage 1: Some [...] body mass. Additional eGFR calculator available at: http://www.[employer]/multiple_crcl_2012.htm XR CHEST PORTABLEon 09-06-20 19 Giuseppe, Mhpn Incoming Radiant Results From [employer] - 09/06/2019 9:11 PM EST EXAMINATION: ONE XRAY VIEW OF THE CHEST 09/06/2019 8:46 pm COMPARISON: December 03, 2018 HISTORY: ORDERING SYSTEM PROVIDED HISTORY: aspiration concern TECHNOLOGIST PROVIDED HISTORY: aspiration concern FINDINGS: Cardiac silhouette is mildly enlarged. Lungs appear clear. No acute bony abnormality. IMPRESSION: No acute findings [place] EXAMINATION: ONE XRA Y VIEW OF THE CHEST 09/06/2019 8:46 pm COMPARISON: December 03, 2018 HISTORY: ORDERING SYSTEM PROVIDED HISTORY: aspiration concern TECHNOLOGIST PROVIDED HISTORY: aspiration concern FINDINGS: Cardiac silhouette is mildly enlarged. Lungs appear clear. No acute bony abnormality. [place] No acute findings [place] Lipid Panelon 08-27-2019 Cholesterol [Mass/Vol] 136 mg/dL <200 [place] Comment on above: Cholesterol Guidelines: <200 Desirable 200-240 Borderline >240 Undesirable Cholesterol in HDL [Mass/Vol] 51 mg/dL >40 [place] Comment on above: HDL Guidelines: <40 Undesirable 40-59 Borderline >59 Desirable Cholesterol in LDL [Mass/Vol] 65 mg/dL 0 - 130 mg/dL [place] Comment on above: LDL Guidelines: <100 Desirable 100-129 Near to/above Desirable 130-159 Borderline >159 Undesirable Direct (measured) LDL and calculated LDL are not interchangeable tests. Cholesterol in VLDL [Mass/Vol] NOT REPORTED 1 - 30 mg/dL [place] Cholesterol.total/C holesterol in HDL [Mass ratio] 2.7 {ratio} <5 [place] Triglyceride [Mass/Vol] 99 mg/dL <150 [place] Comment on above: Triglyceride Guidelines: <150 Desirable 150-199 Borderline 200-499 High >499 Very high Based on AHA Guidelines for fasting triglyceride, July 2012. CBC Auto Differentialon 08-07 Basophils (Bld) [#/Vol] 0.10 10*3/uL [place] Basophils/100 WBC (Bld) 2 % 0 - 2 % [place] Differential Type NOT REPORTED [place] Eosinophils (Bld) [#/Vol] 0.14 10*3/uL [place] Eosinophils/100 WBC (Bld) 3 % 1 - 4 % [place] Erythrocyte distribution width (RBC) [Ratio] 12.6 % 11.8 - 14.4 % [place] Hematocrit (Bld) [Volume fraction] 46.0 % 40.7 - 50.3 % [place] Hemoglobin (Bld) [Mass/Vol] 14.8 g/dL 13 - 17 g/dL [place] Immature granulocytes (Bld) [#/Vol] 0 % 0 [place] Immature granulocytes (Bld) [#/Vol] 10*3/uL [place] Interpretation and review of laboratory results Abnormal [place] Lymphocytes (Bld) [#/Vol] 1.20 10*3/uL [place] Lymphocytes/100 WBC (Bld) 22 % Low 24 - 43 % [place] MCH (RBC) [Entitic mass] 33.0 pg 25.2 - 33.5 pg [place] MCHC (RBC) [Mass/Vol] 32.2 g/dL 28.4 - 34.8 g/dL [place] MCV (RBC) [Entitic vol] 102.4 fL 82.6 - 102.9 fL [place] Monocytes (Bld) [#/Vol] 0.71 10*3/uL [place] Monocytes/100 WBC (Bld) 13 % High 3 - 12 % [place] Platelet mean volume (Bld) [Entitic vol] 9.4 fL 8.1 - 13.5 fL [place] Platelets (Bld) [#/Vol] 210 10*3/uL [place] Platelets (Bld) [#/Vol] NOT REPORTED [place] RBC (Bld) [#/Vol] 4.49 10*6/uL 4.21 - 5.7 7 m/uL [place] RBC morphology finding Nom (Bld) NOT REPORTED [place] Segmented neutrophils/100 WBC (Bld) 60 % 36 - 65 % [place] Segs Absolute 3.32 [place] WBC (Bld) [#/Vol] 0.0 10*3/uL 0.0 per 10 0 WBC [place] WBC (Bld) [#/Vol] 5.5 10*3/uL [place] WBC Morphology NOT REPORTED [place] Comprehensive Metabolic Pane mirna 11-15-2019 Albumin [Mass/Vol] 3.6 g/dL 3.5 - 5.2 g/dL [place] Albumin/Globulin [Mass ratio] 0.9 {ratio} [place] ALP [Catalytic activity/Vol] 86 U/L 40 - 129 U/L [place] ALT [Catalytic activity/Vol] 12 U/L 5 - 41 U/L [place] Anion gap [Moles/Vol] 10 mmol/L 9 - 17 mmol/L [place] AST [Catalytic activity/Vol] 16 U/L <40 [place] Bilirubin Ql (U) 0.26 mg/dL Low 0.3 - 1.2 mg/dL [place] Bun/Cre Ratio 20 [place] Calcium [Mass/Vol] 8.9 mg/dL 8.6 - 10. 4 mg/dL [place] Chloride [Moles/Vol] 100 mmol/L 98 - 107 mmol/L [place] CO2 [Moles/Vol] 28 mmol/L 20 - 31 mmol/L [place] Creatinine [Mass/Vol] 0.83 mg/dL 0.7 - 1.2 mg/dL [place] GFR >60 >60 mL/min [place] GFR Non- >60 >60 mL/min [place] Glucose [Mass/Vol] 101 mg/dL High 70 - 99 mg/dL [place] Interpretation and review of laboratory results Abnormal [place] Potassium [Moles/Vol] 4.1 mmol/L 3.7 - 5.3 mmol/L [place] Protein [Mass/Vol] 7.4 g/dL 6.4 - 8.3 g/dL [place] Sodium [Moles/Vol] 138 mmol/L 135 - 144 mmol/L [place] Urea nitrogen [Mass/Vol] 17 mg/dL 8 - 23 mg/dL [place] Metabolic Panelon 08-21-2019 GFR/1.73 sq M predicted among non-blacks MDRD (S/P/Bld) [Vol rate/Area] [facility] [place] Comment on above: Average GFR for 60-6 9 years old: 85 mL/min/1.73sq m Chronic Kidney Disease: <60 mL/min/1.73sq m Kidney failure: <15 mL/min/1.73sq m eGFR calculated using average adult body mass. Additional eGFR calculator available at: http://www.WorldState/multiple_crcl_2012.htm Stage 1: Some kidney damage normal GFR Stage 2: Mild kidney damage GFR 60-89 Stage 3: Moderate kidney damage GFR 30-59 Stage 4: Severe kidney damage GFR 15-29 Stage 5: Severe kidney damage GFR <15 ESRD - chronic treatment by dialysis or transplant XR CHEST STANDARD (2 VW)on 10-21-2018 No acute process. Sophia Mcmillan [facility] [place] EXAMINATION: TWO XRA Y VIEWS OF THE CHEST 08/21/2019 5:26 pm COMPARISON: 12/03/2018 HISTORY: ORDERING SYSTEM PROVIDED HISTORY: Cough TECHNOLOGIST PROVIDED HISTORY: fatigue, cough FINDINGS: The lungs are without acute focal process. There is no effusion or pneumothorax. The cardiomediastinal silhouette is stable. The osseous structures are stable. [facility] Mhpn Incoming Radiant Results From [employer] - 08/21/2019 5:40 PM EST EXAMINATION: TWO XRAY VIEWS OF THE CHEST 08/21/2019 5:26 pm COMPARISON: 12/03/2018 HISTORY: ORDERING SYSTEM PROVIDED HISTORY: Cough TECHNOLOGIST PROVIDED HISTORY: fatigue, cough FINDINGS: The lungs are without acute focal process. There is no effusion or pneumothorax. The cardiomediastinal silhouette is stable. The osseous structures are stable. IMPRESSION: No acute process. [facility] [place] Progress Noteon 06-16-2018 HIM IP Note OR Compress Trucker Normal [facility] Progress Noteon 05-05-2018 HIM IP Note OR Compress Trucker Normal [facility] HIM IP Note OR Compress Trucker Normal [facility] Progress Noteon 03-17-2018 HIM IP Note OR Compress Trucker Normal [facility] HIM IP Note OR Comp[employer] Trucker Normal [facility] Vital Signs Date Time Vital Sign Value Performing Clinician Santiagoi litolesya 05-31-2022 13:24-0400 Body temperature 97 [degF] Rhina March MD Work Phone: [facility] [employer] 05-31-2022 13:24-0400 Diastolic blood pressure 55 mm[Hg] Rhina March MD Work Phone: [facility] [employer] 05-31-2022 13:24-0400 Heart rate 71 /min Rhina March MD Work Phone: [facility] [employer] 05-31-2022 13:24-0400 Respiratory rate 17 /min Rhina March MD Work Phone: [facility] [employer] 05-31-2022 13:24-0400 SaO2% (BldA) [Mass fraction] 95 % Rhina March MD Work Phone: [facility] [employer] 05-31-2022 13:24-0400 Systolic blood pressure 95 mm[Hg] Rhina March MD Work Phone: [facility] [employer] 05-31-2022 05:15-0400 Body mass index (BMI) [Ratio] 30.61 kg/m2 Rhina March MD Work Phone: [facility] [employer] 05-31-2022 05:15-0400 Body weight 73.48 kg Rhina March MD Work Phone: [facility] [employer] 05-30-2022 06:31-0400 Body height 154.9 cm Rhina March MD Work Phone: [employer] 08-10-2021 15:18-0400 Body temperature 97.39 [degF] Jessica Alba MD Work Phone: [employer] Work Phone: 08-10-2021 15:18-0400 Diastolic blood pressure 77 mm[Hg] Jessica Alba MD Work Phone: [employer] Work Phone: 08-10-2021 15:18-0400 Heart rate 118 /min Jessica Alba MD Work Phone: [employer] Work Phone: 08-10-2021 15:18-0400 Respiratory rate 18 /min Jessica Alba MD Work Phone: [employer] Work Phone: 08-10-2021 15:18-0400 SaO2% (BldA) [Mass fraction] 98 % Jessica Alba MD Work Phone: [employer] Work Phone: 08-10-2021 15:18-0400 Systolic blood pressure 117 mm[Hg] Jessica Alba MD Work Phone: [employer] Work Phone: 07-13-2021 10:45-0400 Diastolic blood pressure 80 mm[Hg] Can Consolo DPM Work Phone: [employer] Work Phone: 07-13-2021 10:45-0400 Heart rate 72 /min Can Consolo DPM Work Phone: [employer] Work Phone: 07-13-2021 10:45-0400 Respiratory rate 18 /min Can Consolo DPM Work Phone: [employer] Work Phone: 07-13-2021 10:45-0400 SaO2% (BldA) [Mass fraction] 94 % Can Consolo DPM Work Phone: [employer] Work Phone: 07-13-2021 10:45-0400 Systolic blood pressure 104 mm[Hg] Can Consolo DPM Work Phone: [employer] Work Phone: 07-13-2021 10:20-0400 Body temperature 99.61 [degF] Can Consolo DPM Work Phone: [employer] Work Phone: 07-13-2021 09:08-0400 Body height 147.3 cm Can DiaDerma BVstorm DPM Work Phone: [employer] Work Phone: 07-13-2021 09:08-0400 Body mass index (BMI) [Ratio] 31.56 kg/m2 Can DiaDerma BVstorm DPM Work Phone: [employer] Work Phone: 07-13-2021 09:08-0400 Body weight 68.49 kg Can Giordano DPM Work Phone: [employer] Work Phone: 07-26-2020 14:31-0400 BP Diastolic 66 mm[Hg] [facility] [place] 07-26-2020 14:31-0400 BP Systolic 112 mm[Hg] [place], [place] 07-26-2020 14:31-0400 Pulse (Heart Rate) 76 /min [facility], [place] 07-26-2020 14:31-0400 Pulse Oximetry 96 % [place] 07-26-2020 14:31-0400 Respiratory Rate 16 /min [facility], [place] 06-02-2020 18:18-0400 Pulse (Heart Rate) 66 /min Kristi Cortes [facility] [place], [place] 06-02-2020 17:10-0400 Pulse Oximetry 97 % Kristi West [facility], [place] 06-02-2020 16:02-0400 BP Diastolic 92 mm[Hg] Kristi West [facility] [place], [place] 06-02-2020 16:02-0400 BP Systolic 109 mm[Hg] Kristi West [facility] [place] 06-02-2020 15:37-0400 Body Temperature 97.59 [degF] [facility] [place] [place] 06-02-2020 15:37-0400 Respiratory Rate 16 /min Kristi Jenna Cortes [facility], [place] 11-02-2019 12:00-0500 Diastolic blood pressure 75 mm[Hg] Nemesio Mayen MD Work Phone: [employer] Work Phone: 11-02-2019 12:00-0500 Heart rate 57 /min Nemesio Mayen MD Work Phone: [employer] Work Phone: 11-02-2019 12:00-0500 Respiratory rate 16 /min Nemesio Mayen MD Work Phone: [employer] Work Phone: 11-02-2019 12:00-0500 SaO2% (BldA) [Mass fraction] 97 % Nemesio Mayen MD Work Phone: [employer] Work Phone: 11-02-2019 12:00-0500 Systolic blood pressure 123 mm[Hg] Nemesio Mayen MD Work Phone: [employer] Work Phone: 11-02-2019 11:13-0500 Body temperature 97.2 [degF] Nemesio Mayen MD Work Phone: [employer] Work Phone: 11-02-2019 09:43-0500 Body height 147.3 cm Nemesio Mayen MD Work Phone: [employer] Work Phone: 11-02-2019 09:43-0500 Body mass index (BMI) [Ratio] 39.92 kg/m2 Nemesio Mayen MD Work Phone: [employer] Work Phone: 11-02-2019 09:43-0500 Body weight 86.64 kg Nemesio Mayen MD Work Phone: [employer] Work Phone: 09-06-2019 20:20-0500 Pulse Oximetry 96 % SivawatAgame [facility] , [place] 09-06-2019 20:12-0500 BMI (Body Mass Index) 41.38 kg/m2 [facility] [place], [place] 09-06-2019 20:12-0500 Body Temperature 96.91 [degF] [place], [place] 09-06-2019 20:12-0500 Body weight 89.81 kg [place], [place] 09-06-2019 20:12-0500 BP Diastolic 88 mm[Hg] [place], [place] 09-06-2019 20:12-0500 BP Systolic 108 mm[Hg] [facility] , [place] 09-06-2019 20:12-0500 Pulse (Heart Rate) 81 /min [place], [place] 09-06-2019 20:12-0500 Respiratory Rate 18 /min [place] Encounters Encounter Date Encounter Type Care Provider Facility Start: 05-29-2022 End: 05-31-2022 Evaluation and management of inpatient [facility] Start: 05-29-2022 End: 05-31-2022 Evaluation and management of inpatient Rhina March MD Work Phone: [facility] MED SURG Comment on above: COPD exacerbation (H CC) (Primary Dx) Start: 01-10-2022 Encounter for genera l adult medical examination without abnormal findings DR JESSICA ALBA [facility] Start: 01-06-2022 End: 01-07-[address] JESSICA ALBA Facility:[facility] Start: 01-06-2022 End: 01-07-2022 Encounter for general adult medical examination without abnormal findings DR JESSICA ALBA Facility:[facility] Start: 12-27-2021 End: 12-30-2021 ambulatory [facility] Start: 11-25-2021 End: 11-25-[address] DOCTOR CALDERON Facility:[facility] Start: 11-18-2021 End: 11-22-2021 Evaluation and management of inpatient [facility] Facility:[facility] Start: 08-10-2021 End: 08-10-2021 Emergency department patient visit [facility] Start: 08-10-2021 End: 08-10-2021 Emergency department patient visit Jessica Alba MD Work Phone: [facility] ED Comment on above: Contusion of right h and, initial encounter (Primary Dx); Injury of head, initial encounter; Contusion of face, initial encounter Start: 07-13-2021 End: 07-13-2021 ambulatory JESSICA MARGARITA [facility] Start: 07-13-2021 End: 07-13-2021 Subsequent hospital visit by physician Can Giordano DPM Work Phone: [facility] OR Start: 05-16-2021 End: 05-17-2021 ambulatory HAYDEE HAMMOND Facility:[facility]1 Start: 02-17-2021 End: 02-17-2021 Subsequent hospital visit by physician Jessica Alba MD Work Phone: [facility] Laboratory Start: 11-17-2020 End: 11-17-2020 Subsequent hospital visit by physician Carl Garcia [facility] Physical Therapy Comment on above: Arrived Start: 07-26-2020 End: 07-28-2020 Subsequent hospital visit by physician Netta Gen Radiologist [facility] Ultrasound Comment on above: Dysphagia, intermitt ent solid food / normal EGD 2019; Thyromegaly / incidental finding on CT scan of the neck 2019 Start: 06-28-2020 End: 06-30-2020 Subsequent hospital visit [facility] Ul[facility] Room [facility] Ultrasound Comment on above: Thyromegaly / incide ntal finding on CT scan of the neck 2019 Start: 06-02-2020 End: 06-02-2020 Emergency department patient visit Kristi West [facility] ED Comment on above: Facial droop (Primar y Dx); Enlarged thyroid Start: 03-23-2020 End: 03-23-2020 Subsequent hospital visit by physician Myla Campbell [facility] Physical Therapy Comment on above: Arrived Start: 03-17-2020 End: 03-17-2020 Subsequent [facility] Start: 03-11-2020 End: 03-11-2020 Subsequent hospital visit by physician Nehemias Lombardi [facility] Physical Therapy Comment on above: Arrived Start: 03-01-2020 End: 03-01-2020 Subsequent hospital visit by physician Myla Campbell [facility] Physical Therapy Comment on above: Arrived Start: 01-20-2020 End: 01-22-2020 Subsequent hospital visit by physician Netta Encarnacion Dr Room 4 [facility] Radiology Comment on above: Cough Start: 11-02-2019 End: 11-02-2019 Subsequent hospital visit by physician Nemesio Mayen MD Work Phone: [facility] OR Start: 09-07-2019 End: 09-07-2019 Emergency department patient visit JESSICA ALBA Facility:[facility] Start: 09-06-2019 End: 09-06-2019 Emergency department patient visit Siva Pierre Work Phone: [facility] ED Comment on above: Esophageal obstructi on due to food impaction (Primary Dx) Start: 08-27-2019 End: 08-27-2019 Subsequent hospital visit by physician Jessica Alba [facility] Laboratory Comment on above: Mixed hyperlipidemia Start: 08-21-2019 End: 08-23-2019 Subsequent hospital visit by physician Netta Encarnacion Dr Room 4 [facility] Laboratory Comment on above: Malaise and fatigue Cough; SOB (shortness of breath) Start: 04-29-2017 End: 2018 Patient encounter status Jessica Alba MD Work Phone: [facility] Work Phone: Procedures Date Procedure Procedure Detail Performing Clinician Start: 05-31-2022 BASIC METABOLIC PANEL W/ REFLEX TO MG FOR LOW K Gabrielle [place] [employer] Work Phone: Start: 05-31-2022 Blood count complete auto&auto difrntl wbc Gabrielle Sirena Juan Ramon [employer] Work Phone: Start: 05-30-2022 Radiologic exam swallow function contrast study Gabrielle Delatorre [employer] Work Phone: Start: 05-30-2022 BASIC METABOLIC PANEL W/ REFLEX TO MG FOR LOW K Gabrielle Sirena Juan Ramon [employer] Work Phone: Start: 05-30-2022 Blood count complete auto&auto difrntl wbc Gabrielle Sirena Juan Ramon [employer] Work Phone: Start: 05-29-2022 ROOFER VINYL COATING CLINICAL BEDSIDE SWALLOW EVALUATION & TREATMENT Gabrielle Delatorre [employer] Work Phone: Start: 05-29-2022 Culture bacterial blood [...] on above: Performed By: #### PHVEN #### [facility] [address] [place] [address] Dr. Jarek Barrera Start: 08-10-2021 Ct cervical spine w/o contrast material Nemesio Rios PA-C Work Phone: Start: 08-10-2021 Ct head/brain w/o contrast material Nemesio Rios PA-C Work Phone: Start: 08-10-2021 Radex hand minimum 3 views Kian estrada MD Work Phone: Start: 02-17-2021 Cul bact xcpt urine blood/stool aerobic isol Haydee Hammond PA-C Work Phone: Start: 07-26-2020 Biopsy thyroid percutaneous core needle Jessica Espnioza Parth Work Phone: Start: 07-26-2020 Level iv [...] 11-02-2029 Screening for malignant neoplasm of colon [facility] Start: 12-10-2024 DTaP/Tdap/Td vaccine (2 - Td or Tdap) DTaP/Tdap/Td vaccine (2 - Td or Tdap) [facility] Start: 12-10-2024 DTaP/Tdap/Td vaccine (2 - Td) DTaP/Tdap/Td vaccine (2 - Td) [place] Start: 12-22-2023 Colon cancer screen colonoscopy Colon cancer screen colonoscopy [place] Start: 12-22-2023 Screening for malignant neoplasm of colon Colon cancer screen colonoscopy [place] Start: 01-11-2023 End: 01-11-2023 Patient encounter procedure 01/11/2023 Office Visit Internal Medicine Jessica Alba MD [address] [place] [address], [facility] [place] [address] Jessica Alba MD Start: 01-10-2023 Annual Wellness Visit (AWV) Annual Wellness Visit (AWV) [facility] Start: 01-09-2023 Depression Monitoring Depression Monitoring [facility] Start: 01-06-2023 Lipid panel Lipids [facility] Start: 07-13-2022 End: 07-13-2022 Patient encounter procedure 07/13/2022 Office Visit Internal Medicine Jessica Alba MD [address] [place] [address], [facility] [place] [id number] Jessica Alba MD Start: 06-08-2022 End: 06-08-2022 Patient encounter procedure 06/08/2022 Office Visit Internal Medicine Jessica Alab MD [address] [place] [address], [facility] [place] [address] Jessica Alba MD Start: 06-07-2022 Influenza vaccination Flu vaccine (#1) [facility] Start: 04-10-2022 Lipid panel Lipid screen [facility] Work Phone: Start: 12-20-2021 COVID-19 Vaccine (4 - Booster for Moderna series) COVID-19 Vaccine (4 - Booster for Moderna series) [facility] [employer] Start: 12-16-2021 Diabetes screen Diabetes screen [place] Start: 10-24-2021 End: 10-24-2021 Patient encounter procedure 10/24/2021 Office Visit Internal Medicine Jessica Alba MD [address] [place] [address], [place] [address] [phone] Jessica Alba MD Start: 10-11-2021 Annual Wellness Visit (AWV) Annual Wellness Visit (AWV) [facility] [employer] Phone: Start: 07-21-2021 End: 07-21-2021 Patient encounter procedure 07/21/2021 Office Visit Internal Medicine Jessica Alba MD [address] [place] [address], [place] [address] [phone] Jessica Alba MD Start: 06-07-2021 Influenza vaccination Flu vaccine (#1) [facility] [employer] Phone: Start: 04-19-2021 End: 04-19-2021 Patient encounter procedure 04/19/2021 Office Visit Internal Medicine Jessica Alba MD [address] [place] [address], [place] [address] [phone] Jessica Alba MD Start: 01-11-2021 End: 01-11-2021 Office Visit 01/11/2021 Office Visit Internal Jessica Walters MD [address] [place] [address], [place] [address] [phone] Jessica Alba MD Start: 10-10-2020 End: 10-10-2020 Office Visit 10/10/2020 Office Visit Internal Jessica Walters MD [address] [place] [address], [place] [address] [phone] Jessica Alba MD Start: 08-27-2020 Lipid panel Lipid [place] Start: 08-27-2020 Lipid screen Lip[place] Start: 08-02-2020 Shingles Vaccine (2 of 2) Shingles Vaccine (2 of 2) [place] Start: 07-03-2020 Annual Wellness Visit (AWV) Annual Wellness Visit (AWV) [place] Start: 07-03-2020 Hepatitis C screen Hepatitis C screen [place] Comment on above: Postponed from 1958 (Patient Refus ed) Start: 07-03-2020 Hepatitis C screening Hepatitis C screen [place] Comment on above: Postponed from 1958 (Patient Refus ed) Start: 07-03-2020 Shingles Vaccine (1 of 2) Shingles Vaccine (1 of 2) [place] Comment on above: Postponed from 2008 (Patient Refus ed) Start: 2020 Annual Wellness Visit (AWV) Annual Wellness Visit (AWV) [place] Start: 06-29-2020 End: 06-29-2020 Office Visit 06/29/2020 Office Visit Internal Medicine Jessica Alba MD [address] [place] [address], [facility] [place] [address] [phone] Jessica Alba MD Start: 06-07-2020 Influenza vaccination [place] Start: 04-08-2020 HIV screen HIV screen [place] Comment on above: Postponed from 1973 (Not Indicated ) Start: 04-08-2020 HIV screening HIV screen [place] Comment on above: Postponed from 1973 [...] Office Visit Internal Medicine Jessica Alba MD [address] [place] [address], [place] [address] [phone] Jessica Alba MD Start: 06-07-2019 Influenza vaccination Flu vaccine (#1) [place] Start: 03-04-2019 Annual Wellness Visit (AWV) Annual Wellness Visit (AWV) [place] Start: 05-25-2016 Lipid screen Lipid screen [place] Start: 2003 Screening for malignant neoplasm of colon [facility] [employer] Start: 1973 HIV screening HIV screen [place] Start: 1964 Pneumococcal 0-64 years Vaccine (1 - PCV) Pneumococcal 0-64 years Vaccine (1 - PCV) [facility] [employer] Start: 1964 Pneumococcal 0-64 years Vaccine (1 of 1 - PPSV23) Pneumococcal 0-64 years Vaccine (1 of 1 - PPSV23) [facility] [employer] Phone: Start: 1958 Hepatitis C screening Hepatitis C screen [place] End: 06-01-2022 Basic Metabolic Panel w/ Reflex to MG Basic Metabolic Panel w/ Reflex to MG Lab Routine Daily for 3 Days starting 05/30/2022 until 06/01/2022, 2 completed [employer] Phone: Comment on above: Daily for 3 Days starting 05/30/2022 unt il 06/01/2022, 2 completed Blood Culture 1 Blood Culture 1 Microbiology STAT 05/29/2022 12:09 PM EDT [facility]: End: 06-01-2022 CBC W Auto Differential panel - Blood CBC auto differential Lab Routine Daily for 3 Days starting 05/30/2022 until 06/01/2022, 2 completed [employer] Phone: Comment on above: Daily for 3 Days starting 05/30/2022 unt il 06/01/2022, 2 completed Chest Vest [employer] Phone: Comment on above: TID until discontinued starting 05/29/20 22 As Needed until disc ontinued starting 05/29/2022 Continuous pulse oximetry Pulse oximetry, continuous Respiratory Care Routine Every 4hr until discontinued starting 05/29/2022 [employer] Phone: Comment on above: Every 4hr until discontinued starting Culture, Blood 2 Culture, Blood 2 Microbiology STAT 05/29/2022 12:52 PM EDT [employer] Phone: Culture, Wound Culture, Wound Microbiology Routine 02/17/2021 8:54 AM EDT [employer] Phone: End: 11-02-2019 Esophagogastroduodenoscopy EGD Endoscopy Routine One Time for 1 Occurrences starting 11/02/2019 until 11/02/2019, 1 completed [employer] Work Phone: Comment on above: One Time for 1 Occurrences starting 10/08 until 11/02/2019, 1 completed [facility] [facility] [employer] Work Phone: Comment on above: ONE TIME for 1 Occurrences starting 10/08 Nasal Cannula Oxygen Nasal Cannu la Oxygen Respiratory Care Routine Daily until discontinued starting 05/29/2022 [employer] Work Phone: Comment on above: Daily until discontinued starting 2021 Oxygen therapy [Minimum Data Set ] Initiate Oxygen Therapy Protocol Respiratory Care Routine Daily until discontinued starting 07/13/2021 [employer] Phone: Comment on above: Daily until discontinued starting 2020 Oxygen therapy [Minimum Data Set ] Initiate Oxygen Therapy Protocol Respiratory Care Routine As Needed until discontinued starting 05/29/2022 [employer] Phone: Comment on above: As Needed until discontinued starting Phase I & II - metered glucose P hase I & II - metered glucose Point of Care Testing Routine As Needed until discontinued starting 07/13/2021 [employer] Phone: Comment on above: As Needed until discontinued starting [facility] Work Phone: Comment on above: Release Upon Ordering for 1 Occurrences starting 07/13/2021 ONE TIME for 1 Occur rences starting 11/02/2019 End: 06-02-2020 Urinalysis with Microscopic Urinalysis with Microscopic Lab STAT One Time for 1 Occurrences starting 06/02/2020 until 06/02/2020 [place] Comment on above: One Time for 1 Occurrences starting 05/08 until 06/02/2020 Immunizations Immunization Date Immunization Notes Care Provider Fa cili 08-22-2021 COVID-19, MODERNA BL UE border, Primary or Immunocompromised, (age 12y+), IM, 100 mcg/0.5mL Rhnia March MD Work Phone: [facility] Work Phone: 07-21-2021 Seasonal, quadrivale nt, recombinant, injectable influenza vaccine, preservative free Jessica Alba MD Work Phone: [facility] Hospital Work Phone: 11-14-2020 COVID-19, Moderna, P F, 100mcg/0.5mL Jessica Alba MD Work Phone: [facility] Work Phone: 10-17-2020 COVID-19, Moderna, P F, 100mcg/0.5mL Jessica Alba MD Work Phone: [facility] Work Phone: 08-12-2020 zoster vaccine recombinant [facility] Work Phone: 07-26-2020 Seasonal, quadrivale nt, recombinant, injectable influenza vaccine, preservative free [facility] Work Phone: 06-07-2020 zoster vaccine recombinant Jessica [facility] 07-07-2018 influenza virus vaccine, unspecified formulation [facility], [place] 08-02-2017 Influenza, Quadv, 6 mo and older, IM (Fluzone, Flulaval) Jessica lAba [facility] 08-07-2016 influenza virus vaccine, unspecified formulation Jessica Cortes [facility] [place], [place] 07-18-2015 influenza virus vaccine, unspecified formulation Jessica [facility] 12-10-2014 tetanus toxoid, redu ashok diphtheria toxoid, and acellular pertussis vaccine, adsorbed Jessica [facility] Payers Date Payer Category Payer Medicaid 2019 Medicare 2018 Medicaid MEDICAID [facility] DEPT OF JOB xxxxxxxxxxxx 2018-Present [phone] [address] [place] [address] xxxxxxxxxxxx [id number] 2018 Medicare MEDICARE MEDICAR E PART A AND B xxxxxxxxxxx 2018-Present [phone] [address] [address] [place] [address] xxxxxxxxxxx [id number] 1959 Medicaid [id number] 1959 Medicare [id number] 1958 Unknown [id number] 1960 Unknown [id number] 1958 Unknown [id number] 1958 Unknown [id number] 1958 Unknown [id number] 1958 Unknown [id number] 1960 Unknown [id number] 1960 Unknown [id number] 1960 Unknown [id number] 1960 Unknown [id number] Social History Date Type Detail Facility Start: 11-13-2014 End: 08-18-2019 Tobacco smoking status NHIS Never smoker [place] Start: 08-18-2019 End: 11-02-2019 Alcohol intake Current non-drinker of alcohol (finding) [place], [place] Start: 1960 Sex Assigned At Not on file [place] Exposure to SARS-CoV -2 (event) Unable to assess [place] Start: 11-13-2014 End: 06-02-2020 Tobacco use and exposure Never used [place], [place] Start: 05-19-2022 End: 05-29-2022 Exposure to SARS-CoV-2 (event) Not sure [place] Start: 11-01-2020 End: 05-29-2022 Alcohol intake Lif[facility] Start: 10-10-2020 End: 10-24-2021 History SDOH Alcohol Frequency 1 [facility]: Start: 10-10-2020 History SDOH Alcohol Std Drinks 98 [employer] Phone: Start: 10-10-2020 History SDOH Social Connections Phone 2 [facility]: Start: 10-10-2020 History SDOH Social Connections Living 7 [facility]: Start: 10-10-2020 History SDOH Physica l Activity DPW 0 [employer] Work Phone: Start: 10-10-2020 End: 10-24-2021 History SDOH Financial 5 [employer] Work Phone: History of Present illness Narrative [...] Patient transferred to wheelchair in room via scientific writer and staff. Scat transportation arriving at 1545. [facility] is [facility]. SILVINO Ch Patient in bed with family at bed side. Vitals and assessment completed. Vitals stable. Patient on room air. James emptied. Patient repositioned onto other side. Call light within reach. Will continue to monitor. Spoke with the guardian and she is good with the discharge for today. Spoke with the snf and they want to review the discharge paper work before they accept him back. SILVINO Ch Left a message for the guardian and the snf to call about the discharge today. SILVINO Ch [facility] Facility/Department: [facility] MED SURG Speech Language Pathology Dysphagia Treatment NAME:Fer Sandoval : 1960 (61 y.o.) ROOM: [address] [place] [address] ADMISSION DATE: 05/29/2022 PATIENT DIAGNOSIS(ES): Aspiration pneumonia [...] DILATATION performed by Nemesio Mayen MD at [facility] OR EYE SURGERY Bilateral FOOT DEBRIDEMENT Left 07/13/2021 FOOT DEBRIDEMENT INCISION AND DRAINAGE-HALLUX WOUND performed by Can Giordano DPM at [facility] OR UPPER GASTROINTESTINAL ENDOSCOPY N/A 11/02/2019 [...] Consistency Presented: Minced & Moist;Pureed;Thin How Presented: ROOFER VINYL COATING-fed/Presented Bolus Acceptance: No impairment Bolus Formation/Control: No impairment Type of Impairment: Mastication Propulsion: No impairment Oral Residue: Less than 10% of bolus;None Dysphagia Diagnosis Dysphagia Diagnosis: Mild oral stage dysphagia;Mild pharyngeal stage dysphagia;Concerns for esophageal stage dysphagia Dysphagia Outcome Severity Scale: Level 3: Moderate dysphagia- Total assisstance, supervision or strategies. Two or more diet consistencies restricted Recommendations Requires ROOFER VINYL COATING Intervention: Yes Diet Solids Recommendation: Minced & Moist Liquid Consistency Recommendation: Thin Compensatory Swallowing Strategies : Alternate solids and liquids;Eat/Feed slowly;Total feed;Small bites/sips;External pacing;Remain upright for 30-45 minutes after meals;Upright as possible for all oral intake Recommended Form of Meds: Crushed in puree as able Therapeutic Interventions: Diet tolerance monitoring;Therapeutic PO trials with ROOFER VINYL COATING;Patient/Family education Frequency of Treatment: 1x daily during [...] does not appear in pain Therapy Time ROOFER VINYL COATING Individual Minutes Time In: 0755 Time Out: [...] family members. Electronically signed: Andreia Stewart M.S., CCC-ROOFER VINYL COATING 05/31/2022 Patient in bed resting at this time. Vitals and assessment completed. Patient on room air. Patient sleeping. Blood pressure stable. Patient awoke upon touching but fell back asleep within seconds after stimulation. Circus Rider checked patient brief which was clean, dry, and intact. Patient repositioned onto other side. James catheter draining appropriately and was emptied. Will provide oral care after medications administered in pudding. Bed alarm on. Will continue to monitor. Physical Therapy Facility/Department: [facility] MED SURG Daily Treatment Note NAME: Fer [...] time and he was clean and dry. Circus Rider positioned patient with a pillow under his [...] and assessment are complete at this time. Circus Rider updated patient's sister, Deandra, on how patient's day went. Patient is resting in bed watching television. Circus Rider will turn and change patient throughout the [...] Alba From: Speech Therapy Sender:_Emily Goldstein M.S., CCC-ROOFER VINYL COATING ([facility]) Fer Sandoval current unit [x][facility] [phone] []ICU [phone] Your MBS evaluation order for Fer Cruzley has been completed. Based on the results speech therapy recommends: Minced and moist diet with thin liquids and meds in puree If you agree please enter the new diet order in CarePATH or telephone the nursing unit. Diet will not change without your order. Thank you, Electronically signed by: Emily Goldstein M.S., CCC-ROOFER VINYL COATING Physical Therapy Facility/Department: [facility] MED SURG Daily Treatment Note NAME: Fer [...] recall of recent events;Decreased short term memory;Decreased usp memory Safety Judgement: Decreased awareness of need [...] Alba From: Speech Therapy Sender:_Andreia Stewart M.S., CCC-ROOFER VINYL COATING ([facility]) Fer Kingston Julio current unit [x][facility] [phone] []ICU [phone] Your bedside evaluation order for Fer Sandoval has been completed. Based on the results speech therapy recommends: Diet upgrade to puree solids and mildly-thick (nectar-thick) liquids. If you agree please enter the new diet order in CarePATH or telephone the nursing unit. Diet will not change without your order. Thank you, Electronically signed by: Andreia Stewart M.S., CCC-ROOFER VINYL COATING [facility] Facility/Department: [facility] MED SURG Speech Language Pathology Clinical Bedside Swallow Treatment NAME:Fer Sandoval : 1960 (61 y.o.) ROOM: [facility]/0301- ADMISSION DATE: 05/29/2022 PATIENT DIAGNOSIS(ES): Aspiration pneumonia [...] DILATATION performed by Nemesio Mayen MD at [facility] OR EYE SURGERY Bilateral FOOT DEBRIDEMENT Left 07/13/2021 FOOT DEBRIDEMENT INCISION AND DRAINAGE-HALLUX WOUND performed by Can Giordano DPM at [facility] OR UPPER GASTROINTESTINAL ENDOSCOPY N/A 11/02/2019 -bx(esophageal-normal,neg H-Pylori)dilation US THYROID BIOPSY 07/26/2020 US THYROID BIOPSY 07/26/2020 [facility] ULTRASOUND Allergies Allergen Reactions Penicillins UNKNOWN REACTION DATE ONSET: 05/29/22 Date of Evaluation: 05/30/2022 Evaluating Therapist: SWAPNA Garzon Dysphagia Diagnosis Dysphagia Diagnosis: Concerns for esophageal stage dysphagia;Suspected needs further assessment;Mild oral stage dysphagia;Mild pharyngeal stage dysphagia Recommended Diet Recommendations: Modified barium swallow study Referral To: GI Diet Solids Recommendation: Pureed Liquid Consistency Recommendation: Mildly Thick ([place]) Recommended Form of Meds: Crushed in puree [...] Impairment Consistency Presented: Mildly Thick;Thin;Pureed How Presented: ROOFER VINYL COATING-fed/Presented Bolus Acceptance: No impairment Bolus Formation/Control: Impaired [...] Recommendation: Pureed Liquid Consistency Recommendation: Mildly Thick ([place]) Compensatory Swallowing Strategies : Alternate solids and liquids;Eat/Feed slowly;Total feed;Small bites/sips;External pacing;Remain upright for 30-45 minutes after meals;Upright as possible for all oral intake Recommended Form of Meds: Crushed in puree as able Therapeutic Interventions: Diet tolerance monitoring;Therapeutic PO trials with ROOFER VINYL COATING;Patient/Family education Frequency of Treatment: 1x daily during [...] does not appear in pain Therapy Time ROOFER VINYL COATING Individual Minutes Time In: 1400 Time Out: [...] inpatient stay. Electronically signed: Andreia Stewart M.S., CCC-ROOFER VINYL COATING 05/30/2022 Dr Smith returned call. She will come see family. Called outpatient with consult for Dr Smith. Per Beckie in outpatient Dr Smith is not in the office until next Saturday, but she is in surgery in [place] today. Circus Rider called surgery dept and spoke to Beckie, [...] syndrome Nonverbal Nonambulatory Nutrition status: obesity, non-morbid Saturator Tender consult initiated Hospital Prophylaxis: DVT: Lovenox Stress Ulcer: PPI High risk medications: none Disposition: Discharge plan is pending Gabrielle Delatorre APRN - [employer] MILLER , NETWORK OPERATIONS LEAD, G[employer] WARD[employer]-C Hospitalist Medicine 05/30/2022, 7:52 AM Associated attestation - Jessica Alba MD - 05/30/2022 3:29 PM EDT Attending Supervising Physician s Attestation Statement I have personally evaluated and examined the patient [id number] in conjunction with the nurse practitioner. I [...] Examined and Reviewed plan of care with GAME WARDEN. Directions and discussion about care and plans. [...] loss Fluid Accumulation: No significant fluid accumulation Zipper Cutter Strength: Not Performed Nutrition Assessment: Inadequate nutrient [...] Anthropometric Measures: Height: 5' 1 (154.9 cm) [place] Body Weight (IBW): 112 lbs (51 kg) [...] Used for Energy Requirements: Current Energy (kcal/day): 1411-5965 (18-20) Weight Used for Protein Requirements: [place] Protein (g/day): 61-71 (1.2-1.4) Method Used for [...] to determine Mehul Hickman RD, LD Contact: [id number] James catheter inserted by LIZY Mcbride. Noted [...] Patient is single and lives in a [facility] in [place]. He uses a wheelchair to get around. Patient requires total assistance with his ADL's. He has daily visits with a nurse. The snf manages his medications and transportation. 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 His PCP is Dr. Jessica Alba MD. He has medical insurance that helps with medication costs. The discharge plan is to [facility] to the [facility] at this time. He does not have advance directives do to having a legal guardian. ACTIVITIES AIDE to monitor and assist with any needs [...] From: Speech Therapy Sender: Andreia Stewart M.S. [facility]-ROOFER VINYL COATING ([facility]) [facility] [phone] []ICU [phone] Your bedside evaluation order for Fer Sandoval has been completed. Based on the results speech therapy recommends: NPO status, Recommend Modified Barium Swallow Study, GI consultation . If you agree please enter the new diet order in CarePATH or telephone the nursing unit. Diet will not change without your order. Thank you, Electronically signed by: Andreia Stewart M.S. [facility]-ROOFER VINYL COATING [facility] Facility/Department: [facility] MED SURG Speech Language Pathology Clinical Bedside Swallow Evaluation NAME:Fer Sandoval : 1960 (61 y.o.) ROOM: [facility]/030-01 ADMISSION DATE: 05/29/2022 PATIENT DIAGNOSIS(ES): [...] DILATATION performed by Nemesio Mayen MD at [facility] OR EYE SURGERY Bilateral FOOT DEBRIDEMENT Left 07/13/2021 FOOT DEBRIDEMENT INCISION AND DRAINAGE-HALLUX WOUND performed by Cna Giordano DPM at [facility] OR UPPER GASTROINTESTINAL ENDOSCOPY N/A 11/02/2019 -bx(esophageal-normal,neg H-Pylori)dilation US THYROID BIOPSY 07/26/2020 US THYROID BIOPSY 07/26/2020 [facility] ULTRASOUND Allergies Allergen Reactions Penicillins UNKNOWN [...] to tolerate any PO safely Recommendations Requires ROOFER VINYL COATING Intervention: Yes Recommendations: NPO;Modified barium swallow study [...] does not appear in pain Therapy Time ROOFER VINYL COATING Individual Minutes Time In: 1458 Time Out: [...] 3 assist. documented in this encounter [employer] Phone: Hospital Discharge instructions 05-31-2022 Discharge Instr [...] applesauce or pudding. [facility]: History of Present illness Narrative 07-13-2021 [...] reviewed and faxed to to caregiver at [facility]. documented in this encounter [employer] Phone: History of Present illness Narrative 11-02-2019 [...] Jennifer Carrillo RN documented in this encounter [employer] Phone: Evaluation note Note Date & Type Note Facility Evaluation note Diagnosis Contusion of right hand, initial encounter- Primary Injury of head, initial encounter Contusion of face, initial encounter documented in this encounter [employer] Phone: Evaluation note Note Date & Type Note Facility Evaluation note Diagnosis Dysphagia Dysphagia, unspecified documented in this encounter [employer] Phone: Evaluation note Note Date & Type Note Facility Evaluation note Diagnosis Aspiration pneumonia due to gastric secretions, unspecified laterality, unspecified part of lung (HCC)- Primary COPD exacerbation (HCC) Obstructive chronic bronchitis with exacerbation Down's syndrome documented in this encounter BENNIE BLAND [employer] Phone: Hospital Discharge instructions Instructions Note Date [...] surgeon in . documented in this encounter [employer] Phone: Hospital Discharge instructions Attachments Note Date & Type Note Facility Hospital Discharge instructions The following attachments cannot be sent through Care Everywhere.Contusion: Hand (Vietnamese)Head Injury: Closed: General Info (Vietnamese)documented in this encounter [employer] Phone: Hospital Discharge instructions Instructions Note Date [...] GI clinic staff. 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 Advance Directives and Living Will Power of Esthetician Facialist Latest Code Status on File Code Status Date Activated Date Inactivated Comments Full Code 04/08/2016 7:01 PM 04/11/2016 9:06 PM Documents on File Type Date Recorded 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 superintendent container terminal goals Time Frame for penitentiary goals : 4 weeks penitentiary goal 1: Pt/pt's caregivers will be instructed in gait training with RW over thresholds/surface changes and through doorways to decrease hesitancy and improve pt confidence with gait. penitentiary goal 2: Pt will ambulate >/= 80ft with RW and CGA to improve safety with household ambulation. Patient goals : Per caregivers: To be able to walk Minutes Tracking: Time In: 1020 Time Out: 1121 Minutes: 61 Timed Code Treatment Minutes: 59 Minutes Myla Campbell PT, DPT 03/01/2020 documented in this encounter* Nehemias Lombardi PTA - 03/11/2020 8:45 AM EDT [facility] Out[facility] Physical Therapy Daily Note Patient: Fer Sandoval : 1960 CSN #: [id number] Referring Practitioner: Jessica Alba MD Referral Date : 02/24/20 Date: 03/11/2020 Diagnosis: OA of both knees, M17.0 Treatment Diagnosis: difficulty walking Onset Date: 02/24/20 PT Insurance Information: Medcare / Medicaid Total # of Visits Approved: 6 Per Physician Order Total # of Visits to Date: 2 No Show: 0 Canceled Appointment: 0 Pre-Treatment Pain: 0/10 Subjective: Pt upper trimmer states Pt woke up very early today and it took 3 of them to move him into a w/c to get him here. Pt upper trimmer states he has good days and bad [...] Educated care takers on ex/ activities for snf. Pt verbalized/demonstrated good understanding: [x] Yes [] [...] []Not met []Met []Partially met []Not met Jail Goals - Time Frame for superintendent container terminal goals : 4 weeks superintendent container terminal goal 1: Pt/pt's caregivers will be instructed in gait training with RW over thresholds/surface changes and through doorways to decrease hesitancy and improve pt confidence with gait. []Met []Partially met [x]Not met penitentiary goal 2: Pt will ambulate >/= 80ft [...] Cecile Castanon - 03/17/2020 9:30 AM EDT [facility] Inpatient/Observation/Outpatient Rehabilitation Date: 03/17/2020 Patient Name: Fer [...] Garcia, PT - 11/17/2020 10:00 AM EST [facility] Outpatient Physical Therapy Evaluation Date: 11/17/2020 Patient: Fer Sandoval : 1960 CSN #: [id number] Referring Practitioner: Jessica Alba MD Referral Date [...] ability for transfers. He recently [facility] from a snf. Additional Pertinent Hx: Down syndrome, severe OA [...] Campbell, PT - 03/23/2020 2:45 PM EDT [facility] Out[facility] Physical Therapy Daily Note Patient: Fer Sandoval : 1960 CSN #: [id number] Referring Practitioner: Jessica Alba MD Referral Date : 02/24/20 Date: 03/23/2020 Diagnosis: OA of both knees, M17.0 Treatment Diagnosis: difficulty walking Onset Date: 02/24/20 PT Insurance Information: Medicae/Medicaid Total # of Visits Approved: 6 Per Physician Order Total # of Visits to Date: 3 No Show: 0 Canceled Appointment: 1 Pre-Treatment Pain: 0/10 Subjective: Pt's upper trimmer states pt did a lot of walking last night without walker. Hull Molder alsostates pt tends to push walker away [...] []Not met []Met []Partially met []Not met Jail Goals - Time Frame for superintendent container terminal goals : 4 weeks penitentiary goal 1: Pt/pt's caregivers will be instructed in gait training with RW over thresholds/surface changes and through doorways to decrease hesitancy and improve pt confidence with gait. - not met []Met []Partially met []Not met penitentiary goal 2: Pt will ambulate >/= 80ft [...] your doctor if you can take an [id number] medicine. If you think your pain medicine [...] Where can you learn more? Go to [email or web address] and sign in to your [employer] account. Enter O887 in the Search Health Information box to learn more about Fine-Needle Thyroid Biopsy: What to Expect at Home. If you do not have an account, please click on the Sign Up Now link. [phone] [facility] [employer]. Care instructions adapted under license by [facility]. This care instruction is for use with your licensed healthcare professional. If you have questions about amedical condition or this instruction, always ask your healthcare professional. [facility] [employer] disclaims any warranty or liability for your use of this information. Content Version: 10.9.530615; Current as of: August 26, 2015 documented in this encounter Reason for Referral Status Reason Specialty Diagnoses / Procedures Referre d By Contact Referred To Contact Closed Radiology Diagnoses Thyromegaly Procedures US HEAD NECK SOFT TISSUE THYROID Jessica Alba MD [address] [place] [address] [facility] Ultrasound [address] [place] [address] Status Reason Specialty Diagnoses / Procedures Referre d By Contact Referred To Contact Open Radiology Diagnoses Dysphagia, unspecified type Thyromegaly Procedures US BIOPSY THYROID Jessica Alba MD [address] [place] [address] Hospital Course * Myla Campbell, PT - 03/23/2020 2:45 PM EDT [facility] Physical Therapy Discharge Summary Patient: Fer Sandoval : 1960 CSN #: [id number] Referring physician: No admitting provider for patient [...] occasional VC from therapist. - not met superintendent container terminal goals Time Frame for superintendent container terminal goals : 4 weeks penitentiary goal 1: Pt/pt's caregivers will be instructed in gait training with RW over thresholds/surface changes and through doorways to decrease hesitancy and improve pt confidence with gait. - not met superintendent container terminal goal 2: Pt will ambulate >/= 80ft [...] section and content) DATE CREATED AUTHOR 06/30/2018 [facility] DATE CREATED AUTHOR AUTHOR'S ORGANIZ ATION 09/07/2019 [facility] DATE CREATED AUTHOR AUTHOR'S ORGANIZ ATION 01/13/2022 [facility] DATE CREATED AUTHOR AUTHOR'S ORGANIZ ATION 06/08/2022 [facility] Reason for Visit (unrecogniz ed section and content) Status Reason Specialty Diagnoses / Procedures Referred By Contact Referred To Contact [facility] Required Physical Therapy Diagnoses Primary osteoarthritis of both knees Jessica lAba MD [address] [place] [address] [facility] Physical Therapy [address] [place] [address] Reason Comments Facial Droop Right facial droop o nset today. Status Reason Specialty Diagnoses / Procedures Referre d By Contact Referred To Contact Closed Radiology Diagnoses Thyromegaly Procedures US HEAD NECK SOFT TISSUE THYROID Jessica Alba MD [address] [place] [address] [facility] Ultrasound [address] [place] [address] Status Reason Specialty Diagnoses / Procedures Referre d By Contact Referred To Contact Open Radiology Diagnoses Dysphagia, unspecified type Thyromegaly Procedures US BIOPSY THYROID Jessica Alba MD [address] [place] [address] Status Reason Specialty Diagnoses / Procedures Referred By Contact Referred To Contact Open Specialty Services Required Physical Therapy Diagnoses Generalized osteoarthritis of multiple sites Primary osteoarthritis of both knees Jessica Alba MD [address] [place] [address] [facility] Physical Therapy [address] [place] [address] Reason Comments Foreign Body In throat, 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 Status Reason Specialty Diagnoses / Procedures Referre d By Contact Referred To Contact Diagnoses Left hallux osteomyelitis (HCC) LEFT HALLUX ULCER/WOUND Procedures NE DEBRIDEMENT, SKIN, SUB-Q TISSUE,MUSCLE,=<20 SQ CM FOOT DEBRIDEMENT INCISION AND DRAINAGE-HALLUX WOUND Can Giordano, DPM [address] [facility] [place] [address] [facility] Reason Comments Hand Injury Pt from snf- pt tipped himself and wheel chair over hitting forehead and right hand Head Injury Status Reason Specialty Diagnoses / Procedures Re ferred By Contact Referred To Contact Diagnoses DYSPHAGIA Procedures NE ESOPHAGOGASTRODUODENOSCOPY TRANSORAL DIAGNOSTIC EGD ESOPHAGOGASTRODUODENOSCOPY Nemesio Mayen MD [address] [place] [address] [place] [address] [facility] Reason Comments Wheezing Cough Low SpO2 [...] break. 1553 (Held by provider - Provider: DAROI Osborn CNP - Reason: Pt NPO)2100 (Automatically [...] (Given - Provider: Laureen Crowell, [facility]) ipratropium-albuterol (DUONEB) nebulizer solution 1 ampule (COMPLETED) [...] CNP) 0649 (Unheld by provider - Provider: DRAIO Osborn CNP)0806 (Given - Provider: Flavio Duran [...] Care Teams (unrecognized sec tion and content) Garment Fitter Relationship Specialty Start Date End Date Jessica Alba MD [address] [place] [address], [facility] [place] [address] PCP - General 10/17/12 FOR [...] BE BASED ON THE PRIMARY CLINICAL RECORDS. [facility]. provides no warranty or guarantee of the accuracy or completeness of information in this document.
--- NOTE | 2023-11-27 20:01 | ED.URI1 ---
HPI - URI/Sore Throat General Chief Complaint: Shortness of Breath/Dyspnea Stated Complaint: Shortness of Breath Time Seen by Provider: 11/27/23 19:59 History of Present Illness HPI Narrative: [facility]. Pulse ox reportedly 70s at the home. Patient has past history of aspiration pneumonia. Patient is non verbal . Arrives unresponsive with NRB mask in place and in mod-severe respiratory distress. DNRCC. Related Data Home Medications Medication Instructions Recorded Confirmed albuterol sulfate 1.25 mg/3 mL 1.25 mg inhalation Q8H PRN 09/19/23 10/13/23 solution for nebulization shortness of breath or wheezing ammonium lactate 12 % topical cream 1 applic topical DAILY 09/19/23 10/13/23 dexamethasone 4 mg tablet 4 mg PO DAILY 09/19/23 10/13/23 docusate sodium 100 mg capsule 100 mg PO DAILY 09/19/23 10/13/23 (Colace) food supplemt, lactose-reduced 1 ea PO BID 09/19/23 10/13/23 (Ensure oral liquid) hyoscyamine sulfate 0.125 mg 0.125 mg PO Q8H 09/19/23 10/13/23 disintegrating tablet lanolin alcohols-mineral 1 applic topical BID 09/19/23 10/13/23 oil-w.petrolatum-ceresin topical cream (Eucerin topical cream) loratadine 10 mg tablet 10 mg PO DAILY 09/19/23 10/13/23 menthol 0.44 %-zinc oxide 20.6 % 1 applic topical TID-QID PRN skin 09/19/23 10/13/23 topical ointment (Calmoseptine) irritation nystatin 100,000 unit/gram topical 1 applic topical BID 09/19/23 10/13/23 powder omeprazole 20 mg capsule,delayed 20 mg PO BID 09/19/23 10/13/23 release tamsulosin 0.4 mg capsule 0.4 mg PO DAILY 09/19/23 10/13/23 Previous Rx's Medication Instructions Recorded cefdinir 300 mg capsule 300 mg PO BID 7 days #14 caps 10/16/23 doxycycline hyclate 100 mg capsule 100 mg PO BID 7 days #14 caps 10/16/23 prednisone 10 mg tablet See Rx Instructions .Route 10/16/23 .COMPLEX 12 days #42 tabs Allergies Allergy/AdvReac Type Severity Reaction Status Date / Time Penicillins Allergy Verified 09/19/23 09:41 PFSH [facility] Medical History (Updated 11/27/23 @ 22:08 by Elvin Barnhart MD) Community acquired pneumonia ?J18.9 - Pneumonia, unspecified organism (ICD-10) Dysphagia ?R13.10 - Dysphagia, unspecified (ICD-10) Obesity ?E66.9 - Obesity, unspecified (ICD-10) Trochanteric bursitis of right hip ?M70.61 - Trochanteric bursitis, right hip (ICD-10) Umbilical hernia ?K42.9 - Umbilical hernia without obstruction or gangrene (ICD-10) BPH (benign prostatic hyperplasia) ?N40.0 - Benign prostatic hyperplasia without lower urinary tract symptoms (ICD-10) Hyperlipidemia ?E78.5 - Hyperlipidemia, unspecified (ICD-10) Cataract ?H26.9 - Unspecified cataract (ICD-10) Hearing loss ?H91.90 - Unspecified hearing loss, unspecified ear (ICD-10) Blindness of left eye ?H54.40 - Blindness, one eye, unspecified eye (ICD-10) Arthritis ?M19.90 - Unspecified osteoarthritis, unspecified site (ICD-10) Down's syndrome ?Q90.9 - Down syndrome, unspecified (ICD-10) Protein-calorie malnutrition, mild ?E44.1 - Mild protein-calorie malnutrition (ICD-10) Iron deficiency anemia ?D50.9 - Iron deficiency anemia, unspecified (ICD-10) Family History (Updated 10/13/23 @ 13:03 by Evelyn Garcia RN) Mother Family history of cancer Sister Family history of cancer Father Family history of myocardial infarction Social History Smoking status: Never smoker Highest level of school completed/degree received: don't know Exam Constitutional Vital Signs, click to edit/add: Last Vital Signs Temp 99.3 F 11/27/23 19:54 Pulse 125 H 11/27/23 21:50 Resp 20 11/27/23 21:50 BP 117/85 11/27/23 21:42 Pulse Ox 93 L 11/27/23 21:50 O2 Del Method Nonrebreather 11/27/23 21:11 O2 Flow Rate 15 11/27/23 21:11 Course Vital Signs Vital signs: Vital Signs Temperature 99.3 F 11/27/23 19:54 Pulse Rate 156 H 11/27/23 19:54 Respiratory Rate 18 11/27/23 19:54 Pulse Oximetry 96 11/27/23 19:54 Oxygen Delivery Method Nonrebreather 11/27/23 19:54 Oxygen Delivery Flow Rate 15 11/27/23 19:54 Temperature 99.3 F 11/27/23 19:54 Pulse Rate 125 H 11/27/23 21:50 Respiratory Rate 20 11/27/23 21:50 Blood Pressure 117/85 11/27/23 21:42 Pulse Oximetry 93 L 11/27/23 21:50 Oxygen Delivery Method Nonrebreather 11/27/23 21:11 Oxygen Delivery Flow Rate 11/27/23 21:11 MDM - URI/Sore Throat MDM Narrative Medical decision making narrative: patient presents with in mod-severe respiratory distress. Resides at [facility]. History of Downs syndrome. Nonverbal. History of asthma and aspiration pneumonia. Per Squad pulse ox 70s on scene. Placed on NRB mask and given duoneb enroute. Arrives unresponsive. chest with diffuse coarse breath sounds. No wheezing. Using accessory muscles to breathe. cxray with infiltrate right chest. WBC elevated. lactic pending. blood cultures ordered along with Clindamycin and Vanco. Discussed with Hospitalist and patient accepted for admission. Patient is DNC Lab Data Labs: Lab Results 11/27/23 Range/Units 20:22 WBC 16.4 H (4.0-11.0) 10^3/uL RBC 4.31 L (4.70-6.10) 10^6/uL Hgb 14.4 (14.0-18.0) g/dL Hct 44.1 (42.0-54.0) % MCV 102.3 H (80.0-94.0) fL MCH 33.4 (25.9-34.0) pg MCHC 32.7 (29.9-35.2) g/dL RDW 14.4 (11.0-15.0) % Plt Count 164 (150-450) 10^3/uL MPV 11.1 (9.5-13.5) fL Seg Neuts % (Manual) 87.0 Band Neutrophils % 6.0 H (0-5) % Lymphocytes % (Manual) 1.0 L (20.5-60.0) % Monocytes % (Manual) 3.0 (1.7-12.0) % Eosinophils % (Manual) 0.0 L (0.9-7.0) % Basophils % (Manual) 0.0 L (0.2-2.0) % Metamyelocytes % 1.0 Myelocytes % 2.0 Neutrophils # (Manual) 14.26 H (1.4-6.5) 10^3/uL Band Neutrophils # 1.0 H (0.0-0.3) 10^3/uL Lymphocytes # (Manual) 0.16 L (1.20-3.80) 10^3/uL Monocytes # (Manual) 0.49 (0.30-0.80) 10^3/uL Eosinophils # (Manual) 0.00 (0.00-0.70) 10^3/uL Basophils # (Manual) 0.00 (0.00-0.10) 10^3/uL Metamyelocytes # 0.16 Myelocytes # 0.32 Sodium 141 (136-145) mmol/L Potassium 5.1 (3.5-5.1) mmol/L Chloride 107 (98-107) mmol/L Carbon Dioxide 25.2 (21.0-32.0) mmol/L Anion Gap 13.9 BUN 25.0 H (7.0-18.0) mg/dL Creatinine 0.98 (0.70-1.30) mg/dL Est GFR ( Amer) >60 (>=60) Est GFR (Non-Af Amer) >60 (>=60) BUN/Creatinine Ratio 25.5 Glucose 181 H (74-106) mg/dL Calcium 8.3 L (8.5-10.1) mg/dL Troponin I High Sens 7.8 (4.0-76.1) pg/mL NT-Pro-B Natriuret Pep 131.0 (<=900.0) pg/mL Imaging Data Chest x-ray: Radiologist's impression: ITS Impressions Chest X-Ray 11/27/23 19:59 IMPRESSION: Mild residual atelectasis and/or pneumonia medially in the right lung base. Electronically authenticated by: MARCELA DAVISON Date: 11/27/2023 20:48 Critical Care Time Critical Care Time Total Critical Care Time: 30 Discharge Plan Discharge Chief Complaint: Shortness of Breath/Dyspnea Clinical Impression: Pneumonia Patient Disposition: Admitted As Inpatient
[2023-11-27 20:35] LABS: Hematocrit 44.1 % (42.0-54.0); Hemoglobin 14.4 g/dL (14.0-18.0); Mean Corpuscular HGB Conc 32.7 g/dL (29.9-35.2); Mean Corpuscular Hemoglobin 33.4 pg (25.9-34.0); Mean Corpuscular Volume 102.3 fL (80.0-94.0); Mean Platelet Volume 11.1 fL (9.5-13.5); Platelet Count 164 10^3/uL (150-450); Red Blood Count 4.31 10^6/uL (4.70-6.10); Red Cell Distribution Width 14.4 % (11.0-15.0); White Blood Count 16.4 10^3/uL (4.0-11.0)
[2023-11-27] MEDS: METHYLPREDNISOLONE SOD SUCC PF 125 MG/2 ML VIAL IVP (20:38)
[2023-11-27] MEDS: IPRATROPIUM/ALBUTEROL SULFATE 3 ML AMPUL.NEB IH (20:38)
--- NOTE | 2023-11-27 20:38 | RESP.RT ---
Duoneb given by nursing.
[2023-11-27] MEDS: FUROSEMIDE 40 MG/4 ML VIAL IVP (20:43)
[2023-11-27 20:50] LABS: Anion Gap 13.9; BUN Creatinine Ratio 25.5; Calcium 8.3 mg/dL (8.5-10.1); Carbon Dioxide 25.2 mmol/L (21.0-32.0); Chloride 107 mmol/L (98-107); Estimated GFR (African America >60 (>=60); Estimated GFR (Non-African Ame >60 (>=60); Glucose 181 mg/dL (74-106); Sodium 141 mmol/L (136-145); Troponin I High Sensitivity 7.8 pg/mL (4.0-76.1)
[2023-11-27 20:52] LABS: Potassium 5.1 mmol/L (3.5-5.1)
[2023-11-27 21:03] LABS: Lymphocytes Absolute Manual 0.16 10^3/uL (1.20-3.80); Metamyelocytes Absolute Manual 0.16; Monocytes Absolute Manual 0.49 10^3/uL (0.30-0.80); Myelocytes Absolute Manual 0.32; Segmented Neut Absolute Manual 14.26 10^3/uL (1.4-6.5)
[2023-11-27 22:14] LABS: Adenovirus NOT DETECTED (NOT DETECTE); Bordetella parapertussis NOT DETECTED (NOT DETECTE); Coronavirus 229E NOT DETECTED (NOT DETECTE); Coronavirus HKU1 NOT DETECTED (NOT DETECTE); Coronavirus NL63 NOT DETECTED (NOT DETECTE); Coronavirus OC43 NOT DETECTED (NOT DETECTE); Human Metapneumovirus NOT DETECTED (NOT DETECTE); Human Rhinovirus/Enterovirus NOT DETECTED (NOT DETECTE); Influenza A NOT DETECTED (NOT DETECTE); Influenza B NOT DETECTED (NOT DETECTE); Mycoplasma pneumoniae NOT DETECTED (NOT DETECTE); Parainfluenza Virus 1 NOT DETECTED (NOT DETECTE); Parainfluenza Virus 2 NOT DETECTED (NOT DETECTE); Parainfluenza Virus 3 NOT DETECTED (NOT DETECTE); Parainfluenza Virus 4 NOT DETECTED (NOT DETECTE); Respiratory Syncytial Virus NOT DETECTED (NOT DETECTE); SARS-CoV-2 NOT DETECTED (NOT DETECTE)
[2023-11-27] MEDS: CLINDAMYCIN PHOSPHATE/D5W 900 MG/50 ML PIGGYBACK 100 MG IV (22:17)
[2023-11-27 22:32] LABS: Lactate/Lactic Acid 2.9 mmol/L (0.4-2.0)
[2023-11-27] MEDS: 0.9 % SODIUM CHLORIDE 500 ML IV (22:45)
[2023-11-27] MEDS: VANCOMYCIN HCL 1,000 MG in 0.9 % SODIUM CHLORIDE 500 ML 250 MG IV (22:51)
[2023-11-27 22:57] LABS: PROCALCITONIN 0.34 ng/mL (0.00-0.50)
[2023-11-27 23:12] LABS: Influenza A\\H3 DETECTED
[2023-11-28] VITALS (17 sets, daily range): BP systolic 97–116; BP diastolic 61–86; PULSE 62–94; RESP 16–22; TEMP 36.4–37.2; O2SAT 90–98
[2023-11-28] MEDS: ENOXAPARIN SODIUM 40 MG/0.4 ML SYRINGE SUBQ ×2 (00:17→21:36)
[2023-11-28] MEDS: DEXTROSE 5 %-0.45 % SOD CHLORD 1,000 ML 125 ML IV (01:19)
[2023-11-28 01:33] LABS: Lactate/Lactic Acid 1.5 mmol/L (0.4-2.0)
[2023-11-28 05:04] LABS: PCO2 VBG 47.2 mmHg (40.0-52.0); pH VBG 7.377 (7.330-7.430)
[2023-11-28 05:14] LABS: Hematocrit 39.6 % (42.0-54.0); Hemoglobin 12.7 g/dL (14.0-18.0); Mean Corpuscular HGB Conc 32.1 g/dL (29.9-35.2); Mean Corpuscular Hemoglobin 33.3 pg (25.9-34.0); Mean Corpuscular Volume 103.9 fL (80.0-94.0); Mean Platelet Volume 10.8 fL (9.5-13.5); Platelet Count 114 10^3/uL (150-450); Red Blood Count 3.81 10^6/uL (4.70-6.10); Red Cell Distribution Width 14.6 % (11.0-15.0); White Blood Count 15.6 10^3/uL (4.0-11.0)
[2023-11-28 05:42] LABS: Alanine Aminotransferase 16 U/L (16-63); Albumin Globulin Ratio 0.6; Albumin Level 2.1 g/dL (3.4-5.0); Alkaline Phosphatase 68 U/L (46-116); Anion Gap 15.7; Aspartate Amino Transferase 10 U/L (15-37); BUN Creatinine Ratio 15.6; Bilirubin Total 0.5 mg/dL (0.2-1.0); Calcium 7.6 mg/dL (8.5-10.1); Carbon Dioxide 27.4 mmol/L (21.0-32.0); Chloride 105 mmol/L (98-107); Estimated GFR (African America >60 (>=60); Estimated GFR (Non-African Ame 53 (>=60); Globulin 3.4 g/dL; Glucose 300 mg/dL (74-106); Potassium 4.1 mmol/L (3.5-5.1); Sodium 144 mmol/L (136-145); Total Protein 5.5 g/dL (6.4-8.2)
[2023-11-28] MEDS: CLINDAMYCIN PHOSPHATE/D5W 600 MG/50 ML PIGGYBACK 100 MG IV ×3 (06:48→21:36)
[2023-11-28 07:33] LABS: Band Neutrophils Absolute 0.5 10^3/uL (0.0-0.3); Segmented Neut Absolute Manual 14.35 10^3/uL (1.4-6.5)
[2023-11-28 07:34] LABS: Lymphocytes Absolute Manual 0.31 10^3/uL (1.20-3.80); Monocytes Absolute Manual 0.46 10^3/uL (0.30-0.80)
[2023-11-28 07:38] LABS: Poikilocytosis 1+; Tear Drop Cells 1+
[2023-11-28 09:47] LABS: Estimated Average Glucose 126 mg/dL
--- NOTE | 2023-11-28 09:54 | RESP.RT ---
Found patient on RA, with sp02 of 80%, ricardo suctioned clear/thin
[2023-11-28] MEDS: PANTOPRAZOLE SODIUM 40 MG VIAL IV (10:59)
[2023-11-28] MEDS: LACTOSE -REDUCED (ENSURE ORIGINAL 237 ML LIQUID) PO ×2 (11:00→21:49)
[2023-11-28] MEDS: OMEPRAZOLE 20 MG CAPSULE.DR PO ×2 (11:00→21:36)
[2023-11-28] MEDS: OSELTAMIVIR PHOSPHATE 75 MG CAPSULE PO ×2 (11:00→21:36)
[2023-11-28] MEDS: DEXAMETHASONE 4 MG TABLET PO (11:00)
--- NOTE | 2023-11-28 11:17 | XR_ITS ---
The [address] [address] Patient Name: MANNIE SANDOVAL MRN: [id number] date: 1960 Sex: M Assigned Patient Location: MS Current Patient Location: MS Accession/Order Number: [id number] Exam Date: 11/28/2023 11:40 Report Date: 11/28/2023 12:12 At the request of: BARBARA SANTANA Procedure: XR knee LT 2V PROCEDURE: XR knee LT 2V, XR femur LT 2V HISTORY: Pain , lump, bruising on medial aspect of left knee COMPARISON: None. FINDINGS: BONES:Prior transverse fracture at distal femur diametaphyseal junction with lateral displacement of the femoral metaphysis one full bone width, slight posterior displacement, and approximately 3 cm proximal retraction. Exuberant bone formation surrounding this area consistent with partial healing. Mild degenerative changes of the knee joint. SOFT TISSUES:No visible soft tissue swelling. EFFUSION:None visible. OTHER: Negative. XR/XR knee LT 2V IMPRESSION: 1. Remote fracture of distal femur with marked displacement and partial osseous healing. 2. No appreciable acute abnormality. No prior studies for comparison. Electronically authenticated by: MANISH BURNETT Date: 11/28/2023 12:12
--- NOTE | 2023-11-28 11:17 | XR_ITS ---
The [address] [address] Patient Name: MANNIE SANDOVAL MRN: [id number] date: 1960 Sex: M Assigned Patient Location: MS Current Patient Location: MS Accession/Order Number: [id number] Exam Date: 11/28/2023 11:40 Report Date: 11/28/2023 12:12 At the request of: BARBARA SANTANA Procedure: XR femur LT 2V PROCEDURE: XR knee LT 2V, XR femur LT 2V HISTORY: Pain , lump, bruising on medial aspect of left knee COMPARISON: None. FINDINGS: BONES:Prior transverse fracture at distal femur diametaphyseal junction with lateral displacement of the femoral metaphysis one full bone width, slight posterior displacement, and approximately 3 cm proximal retraction. Exuberant bone formation surrounding this area consistent with partial healing. Mild degenerative changes of the knee joint. SOFT TISSUES:No visible soft tissue swelling. EFFUSION:None visible. OTHER: Negative. XR/XR femur LT 2V IMPRESSION: 1. Remote fracture of distal femur with marked displacement and partial osseous healing. 2. No appreciable acute abnormality. No prior studies for comparison. Electronically authenticated by: MANISH BURNETT Date: 11/28/2023 12:12
--- NOTE | 2023-11-28 11:19 | PM.HP ---
H&P: HPI History of Present Illness Chief complaint: Shortness of Breath Narrative: 63 y/o male with a history of Down's syndrome and nonverbal presents from snf with SOB and hypoxia. History of aspiration pneumonia and most recently hospitalized in October. Noticed increased SOB and pulse ox in 70s on room air. Called EMS and brought to ER on NRB. Temp 99.3 and WBC elevated. Chest x-ray with pneumonia and admitted. Started clindamycin for possible aspiration pneumonia. Respiratory panel positive for influenza A. Review of Systems ROS Status of ROS unobtainable due to mental status [facility] Medical History (Updated 11/28/23 @ 11:23 by Raymond Aguirre MD) Hypernatremia ?E87.0 - Hyperosmolality and hypernatremia (ICD-10) Asthma exacerbation ?J45.901 - Unspecified asthma with (acute) exacerbation (ICD-10) Community acquired pneumonia ?J18.9 - Pneumonia, unspecified organism (ICD-10) Obesity ?E66.9 - Obesity, unspecified (ICD-10) Trochanteric bursitis of right hip ?M70.61 - Trochanteric bursitis, right hip (ICD-10) Umbilical hernia ?K42.9 - Umbilical hernia without obstruction or gangrene (ICD-10) BPH (benign prostatic hyperplasia) ?N40.0 - Benign prostatic hyperplasia without lower urinary tract symptoms (ICD-10) Hyperlipidemia ?E78.5 - Hyperlipidemia, unspecified (ICD-10) Cataract ?H26.9 - Unspecified cataract (ICD-10) Hearing loss ?H91.90 - Unspecified hearing loss, unspecified ear (ICD-10) Blindness of left eye ?H54.40 - Blindness, one eye, unspecified eye (ICD-10) Arthritis ?M19.90 - Unspecified osteoarthritis, unspecified site (ICD-10) Protein-calorie malnutrition, mild ?E44.1 - Mild protein-calorie malnutrition (ICD-10) Iron deficiency anemia ?D50.9 - Iron deficiency anemia, unspecified (ICD-10) Family History (Updated 10/13/23 @ 13:03 by Evelyn Garcia RN) Mother Family history of cancer Sister Family history of cancer Father Family history of myocardial infarction Social History Smoking status: Never smoker Highest level of school completed/degree received: don't know Meds Home Medications and Allergies Home Medications Medication Instructions Recorded Confirmed Type albuterol sulfate 1.25 mg/3 mL 1.25 mg inhalation Q8H PRN 09/19/23 11/27/23 History solution for nebulization shortness of breath or wheezing ammonium lactate 12 % topical cream 1 applic topical DAILY 09/19/23 11/28/23 History dexamethasone 4 mg tablet 4 mg PO DAILY 09/19/23 11/27/23 History docusate sodium 100 mg capsule 100 mg PO DAILY 09/19/23 11/27/23 History (Colace) food supplemt, lactose-reduced 1 ea PO BID 09/19/23 11/28/23 History (Ensure oral liquid) hyoscyamine sulfate 0.125 mg 0.125 mg PO Q8H 09/19/23 11/28/23 History disintegrating tablet lanolin alcohols-mineral 1 applic topical BID 09/19/23 11/28/23 History oil-w.petrolatum-ceresin topical cream (Eucerin topical cream) loratadine 10 mg tablet 10 mg PO DAILY 09/19/23 11/27/23 History menthol 0.44 %-zinc oxide 20.6 % 1 applic topical TID-QID PRN skin 09/19/23 11/28/23 History topical ointment (Calmoseptine) irritation nystatin 100,000 unit/gram topical 1 applic topical BID 09/19/23 11/28/23 History powder omeprazole 20 mg capsule,delayed 20 mg PO BID 09/19/23 11/27/23 History release tamsulosin 0.4 mg capsule 0.4 mg PO DAILY 09/19/23 11/27/23 History acetaminophen 325 mg capsule 325 mg PO Q4H PRN fever or pain 11/28/23 11/28/23 History docusate sodium 100 mg tablet (DOK) 100 mg PO DAILY PRN constipation 11/28/23 11/28/23 History ipratropium 0.5 mg-albuterol 3 mg 3 ml inhalation TID 11/28/23 11/28/23 History (2.5 mg base)/3 mL nebulization soln miconazole nitrate 2 % topical 1 applic topical TID 11/28/23 11/28/23 History powder (Antifungal (miconazole)) promethazine 25 mg tablet 25 mg PO Q6H PRN nausea and 11/28/23 11/28/23 History vomiting white petrolatum-mineral oil 1 applic topical DAILY 11/28/23 11/28/23 History topical cream (Dermacerin topical cream) Allergies Allergy/AdvReac Type Severity Reaction Status Date / Time Penicillins Allergy Verified 09/19/23 09:41 Exam Constitutional Vital Signs, click to edit/add: Last Vital Signs Temp 98.9 F 11/28/23 04:19 Pulse 66 11/28/23 09:00 Resp 20 11/28/23 04:19 BP 112/71 11/28/23 04:19 Pulse Ox 96 11/28/23 09:54 O2 Del Method Nasal Cannula 11/28/23 09:54 O2 Flow Rate 5 11/28/23 09:54 Documenting provider has reviewed patient's vital signs: yes Common normals: no apparent distress and alert HENMT Common normals: normocephalic Eye Common normals: PERRL and EOMs intact bilaterally Respiratory Auscultation: wheezes and diminished lung sounds Cardio Common normals: regular rate, regular rhythm, no gallops, no murmurs and no rub GI Common normals: Normal to inspection, nondistended, normoactive bowel sounds present and non-tender Extremity Common normals: no pedal edema Results Labs Labs: Short CBC 11/27/23 11/28/23 Range/Units 20:22 04:44 WBC 16.4 H 15.6 H (4.0-11.0) 10^3/uL Hgb 14.4 12.7 L (14.0-18.0) g/dL Hct 44.1 39.6 L (42.0-54.0) % Plt Count 164 114 L (150-450) 10^3/uL BMP 11/27/23 11/28/23 20:22 04:44 Sodium 141 144 Potassium 5.1 4.1 Chloride 107 105 Carbon Dioxide 25.2 27.4 BUN 25.0 H 21.0 H Creatinine 0.98 1.35 H Glucose 181 H 300 H Calcium 8.3 L 7.6 L Liver Function 11/28/23 Range/Units 04:44 Total Bilirubin 0.5 (0.2-1.0) mg/dL AST 10 L (15-37) U/L ALT 16 (16-63) U/L Alkaline Phosphatase 68 (46-116) U/L Albumin 2.1 L (3.4-5.0) g/dL ABG ABG results: 11/28/23 04:44 VBG pH 7.377 VBG pCO2 47.2 Imaging Chest x-ray: Attestation: I have reviewed the pertinent imaging results. Assessment and Plan Assessment and Plan (1) Pneumonia: (2) Influenza A: (3) Acute hypoxic respiratory failure: (4) Type 2 diabetes mellitus with hyperglycemia: (5) Dysphagia: Qualifiers: Dysphagia type: unspecified Qualified Code(s): R13.10 - Dysphagia, unspecified (6) Down's syndrome: (7) Prediabetes: Plan Brought in with acute respiratory distress and hypoxia and found influenza A and pneumonia. Start tamilfu and continue clindamycin for possible aspiration. History of dysphagia and family aware of risk of aspiration. Patient is DNRCC. Resume home medication. BS over 300 but A1C 6.0 and prediabetes. Start PT/OT for weakness. Wean oxygen as tolerated. Plan for at least a 2 midnight stay for inpatient medically necessary services.
--- NOTE | 2023-11-28 11:38 | CM.NOTE ---
Rounds made with Dr. Aguirre, no discharge today. Pt will need to continue on IV antibiotics.
--- NOTE | 2023-11-28 13:09 | SWNOTE1 ---
SW called and spoke to pt's sister to discuss dc needs/plans. Pt's sister was driving her and will be here soon. She did voice she is happy with his care at [facility] and she does want him to return. SW to wait until she is here to review IMM form.
[2023-11-28] MEDS: ALBUTEROL SULFATE 2.5 MG/3 ML VIAL NEB IH (15:03)
--- NOTE | 2023-11-28 15:07 | RESP.RT ---
titrated to 3L
[2023-11-28] MEDS: NYSTATIN 15 GM POWDER 1 APPLIC TOPICAL ×2 (15:25→21:52)
[2023-11-28] MEDS: HYOSCYAMINE SULFATE 0.125 MG TAB.SUBL PO ×2 (15:25→21:49)
--- NOTE | 2023-11-28 16:17 | PM.ORCN ---
History of Present Illness HPI Consult date: 11/28/23 Consult reason: fracture Chief complaint: Shortness of Breath Narrative: Patient is a 63-year-old male with a history of Down syndrome and nonverbal who was admitted to the hospital with acute hypoxic respiratory failure, pneumonia and influenza A. Patient was noted by staff to have prominence of the left distal thigh and medial aspect and x-rays were obtained. X-rays revealed an old fracture of the distal femur. Orthopedics was consulted for recommendations. The patient's older sister has power of finance attorney is at the bedside and she reports he is not ambulatory and fell out of the wheelchair over the summer. He was noted to have significant thigh swelling at that time. She notes that recently he has not been any obvious pain. Review of Systems ROS Status of ROS other (Noncontributory) [facility] Medical History (Updated 11/28/23 @ 13:36 by Raymond Aguirre MD) Hypernatremia ?E87.0 - Hyperosmolality and hypernatremia (ICD-10) Asthma exacerbation ?J45.901 - Unspecified asthma with (acute) exacerbation (ICD-10) Community acquired pneumonia ?J18.9 - Pneumonia, unspecified organism (ICD-10) Obesity ?E66.9 - Obesity, unspecified (ICD-10) Trochanteric bursitis of right hip ?M70.61 - Trochanteric bursitis, right hip (ICD-10) Umbilical hernia ?K42.9 - Umbilical hernia without obstruction or gangrene (ICD-10) BPH (benign prostatic hyperplasia) ?N40.0 - Benign prostatic hyperplasia without lower urinary tract symptoms (ICD-10) Hyperlipidemia ?E78.5 - Hyperlipidemia, unspecified (ICD-10) Cataract ?H26.9 - Unspecified cataract (ICD-10) Hearing loss ?H91.90 - Unspecified hearing loss, unspecified ear (ICD-10) Blindness of left eye ?H54.40 - Blindness, one eye, unspecified eye (ICD-10) Arthritis ?M19.90 - Unspecified osteoarthritis, unspecified site (ICD-10) Protein-calorie malnutrition, mild ?E44.1 - Mild protein-calorie malnutrition (ICD-10) Iron deficiency anemia ?D50.9 - Iron deficiency anemia, unspecified (ICD-10) Family History (Updated 10/13/23 @ 13:03 by Evelyn Garcia RN) Mother Family history of cancer Sister Family history of cancer Father Family history of myocardial infarction Social History Smoking status: Never smoker Highest level of school completed/degree received: don't know Meds Home Medications and Allergies Home Medications Medication Instructions Recorded Confirmed Type albuterol sulfate 1.25 mg/3 mL 1.25 mg inhalation Q8H PRN 09/19/23 11/27/23 History solution for nebulization shortness of breath or wheezing ammonium lactate 12 % topical cream 1 applic topical DAILY 09/19/23 11/28/23 History dexamethasone 4 mg tablet 4 mg PO DAILY 09/19/23 11/27/23 History docusate sodium 100 mg capsule 100 mg PO DAILY 09/19/23 11/27/23 History (Colace) food supplemt, lactose-reduced 1 ea PO BID 09/19/23 11/28/23 History (Ensure oral liquid) hyoscyamine sulfate 0.125 mg 0.125 mg PO Q8H 09/19/23 11/28/23 History disintegrating tablet lanolin alcohols-mineral 1 applic topical BID 09/19/23 11/28/23 History oil-w.petrolatum-ceresin topical cream (Eucerin topical cream) loratadine 10 mg tablet 10 mg PO DAILY 09/19/23 11/27/23 History menthol 0.44 %-zinc oxide 20.6 % 1 applic topical TID-QID PRN skin 09/19/23 11/28/23 History topical ointment (Calmoseptine) irritation nystatin 100,000 unit/gram topical 1 applic topical BID 09/19/23 11/28/23 History powder omeprazole 20 mg capsule,delayed 20 mg PO BID 09/19/23 11/27/23 History release tamsulosin 0.4 mg capsule 0.4 mg PO DAILY 09/19/23 11/27/23 History acetaminophen 325 mg capsule 325 mg PO Q4H PRN fever or pain 11/28/23 11/28/23 History docusate sodium 100 mg tablet (DOK) 100 mg PO DAILY PRN constipation 11/28/23 11/28/23 History ipratropium 0.5 mg-albuterol 3 mg 3 ml inhalation TID 11/28/23 11/28/23 History (2.5 mg base)/3 mL nebulization soln miconazole nitrate 2 % topical 1 applic topical TID 11/28/23 11/28/23 History powder (Antifungal (miconazole)) promethazine 25 mg tablet 25 mg PO Q6H PRN nausea and 11/28/23 11/28/23 History vomiting white petrolatum-mineral oil 1 applic topical DAILY 11/28/23 11/28/23 History topical cream (Dermacerin topical cream) Allergies Allergy/AdvReac Type Severity Reaction Status Date / Time Penicillins Allergy Verified 09/19/23 09:41 Exam Narrative Exam Narrative: On exam he is in no obvious distress. He has a left knee flexion contracture of 35 degrees. Motion of his left leg reveals the femur and leg is 1 unit and no indication on clinical exam that this is a nonunion. Medial distal thigh just above the medial epicondyle reveals some bruising over the skin and a bony prominence right underneath the skin. Palpation and motion of his left leg causes no obvious distress. He has good capillary refill in the toes and wiggles his toes. Constitutional Vital Signs, click to edit/add: Last Vital Signs Temp 97.5 F L 11/28/23 15:00 Pulse 72 11/28/23 15:05 Resp 22 11/28/23 15:00 BP 116/86 11/28/23 15:00 Pulse Ox 98 11/28/23 15:05 O2 Del Method Nasal Cannula 11/28/23 15:05 O2 Flow Rate 4.5 11/28/23 15:05 Results Labs Labs: Abnormal lab results 11/27/23 11/27/23 11/28/23 Range/Units 20:22 21:53 04:44 WBC 16.4 H 15.6 H (4.0-11.0) 10^3/uL RBC 4.31 L 3.81 L (4.70-6.10) 10^6/uL Hgb 12.7 L (14.0-18.0) g/dL Hct 39.6 L (42.0-54.0) % MCV 102.3 H 103.9 H (80.0-94.0) fL Plt Count 114 L (150-450) 10^3/uL Band Neutrophils % 6.0 H (0-5) % Lymphocytes % (Manual) 1.0 L 2.0 L (20.5-60.0) % Eosinophils % (Manual) 0.0 L (0.9-7.0) % Basophils % (Manual) 0.0 L (0.2-2.0) % Neutrophils # (Manual) 14.26 H 14.35 H (1.4-6.5) 10^3/uL Band Neutrophils # 1.0 H 0.5 H (0.0-0.3) 10^3/uL Lymphocytes # (Manual) 0.16 L 0.31 L (1.20-3.80) 10^3/uL BUN 25.0 H 21.0 H (7.0-18.0) mg/dL Creatinine 1.35 H (0.70-1.30) mg/dL Est GFR (Non-Af Amer) 53 L (>=60) Glucose 181 H 300 H (74-106) mg/dL Lactate 2.9 H* (0.4-2.0) mmol/L Calcium 8.3 L 7.6 L (8.5-10.1) mg/dL AST 10 L (15-37) U/L Total Protein 5.5 L (6.4-8.2) g/dL Albumin 2.1 L (3.4-5.0) g/dL H & H 11/27/23 11/28/23 Range/Units 20:22 04:44 Hgb 14.4 12.7 L (14.0-18.0) g/dL Hct 44.1 39.6 L (42.0-54.0) % All other labs normal. Diagnostic results Knee x-ray: image reviewed (X-rays of his left knee were reviewed and there shows a malunion of a distal femur fracture with abundant bone formation and a spike of bone off of the femoral diaphysis at the fracture site consistent with the palpable bone on his physical exam) Assessment and Plan Assessment and Plan (1) Pneumonia: (2) Influenza A: (3) Acute hypoxic respiratory failure: (4) Type 2 diabetes mellitus with hyperglycemia: (5) Dysphagia: Qualifiers: Dysphagia type: unspecified Qualified Code(s): R13.10 - Dysphagia, unspecified (6) Down's syndrome: (7) Prediabetes: Plan The patient's distal femur fracture has healed in a malunited position. Given he is nonambulatory there is no indication for surgical intervention at this time. The main concern with this fracture is the spike of bone that has the potential to erode through the skin. This would need to be followed by his care providers at the nursing facility on a daily basis and if the skin is getting thinner then the spike of bone could be surgically removed if his respiratory status and underlying medical condition allows this. Would be happy to see the patient in follow-up in my office. Will observe for now. Recommendations have been discussed with the patient's older sister who has power of finance attorney.
--- NOTE | 2023-11-28 20:43 | RESP.RT ---
decreased to 2L nasal cannnula
[2023-11-28] MEDS: DOCUSATE SODIUM 100 MG CAPSULE PO (21:36)
[2023-11-28] MEDS: CETIRIZINE HCL 10 MG TABLET PO (21:36)
[2023-11-29] VITALS (17 sets, daily range): BP systolic 121–128; BP diastolic 65–71; PULSE 53–81; RESP 14–22; TEMP 36.7–36.8; O2SAT 90–93
[2023-11-29 05:15] LABS: Basophils Percent Auto 0.1 % (0.2-2.0); Hematocrit 34.6 % (42.0-54.0); Hemoglobin 11.4 g/dL (14.0-18.0); Immature Granulocytes Pct Auto 0.8 % (0.0-0.5); Lymphocytes Absolute Auto 0.4 10^3/uL (1.2-3.8); Lymphocytes Percent Auto 2.9 % (20.5-60.0); Mean Corpuscular HGB Conc 32.9 g/dL (29.9-35.2); Mean Corpuscular Hemoglobin 33.5 pg (25.9-34.0); Mean Corpuscular Volume 101.8 fL (80.0-94.0); Monocytes Absolute Auto 0.6 10^3/uL (0.3-0.8); Monocytes Percent Auto 4.6 % (1.7-12.0); Neutrophils Absolute Auto 11.5 10^3/uL (1.4-6.5); Neutrophils Percent Auto 91.6 % (43.0-75.0); Platelet Count 126 10^3/uL (150-450); Red Cell Distribution Width 14.2 % (11.0-15.0); White Blood Count 12.6 10^3/uL (4.0-11.0)
[2023-11-29] MEDS: NYSTATIN 15 GM POWDER 1 APPLIC TOPICAL ×3 (05:24→21:55)
[2023-11-29] MEDS: HYOSCYAMINE SULFATE 0.125 MG TAB.SUBL PO ×3 (05:24→21:53)
[2023-11-29] MEDS: CLINDAMYCIN PHOSPHATE/D5W 600 MG/50 ML PIGGYBACK 100 MG IV ×3 (05:24→21:57)
[2023-11-29 05:28] LABS: Anion Gap 10.3; BUN Creatinine Ratio 24.7; Calcium 8.1 mg/dL (8.5-10.1); Carbon Dioxide 29.2 mmol/L (21.0-32.0); Chloride 110 mmol/L (98-107); Estimated GFR (African America >60 (>=60); Estimated GFR (Non-African Ame >60 (>=60); Glucose 101 mg/dL (74-106); Potassium 3.5 mmol/L (3.5-5.1); Sodium 146 mmol/L (136-145)
[2023-11-29] MEDS: OMEPRAZOLE 20 MG CAPSULE.DR PO ×2 (09:40→21:54)
[2023-11-29] MEDS: LACTOSE -REDUCED (ENSURE ORIGINAL 237 ML LIQUID) PO (09:41)
[2023-11-29] MEDS: PANTOPRAZOLE SODIUM 40 MG VIAL IV (09:41)
[2023-11-29] MEDS: DEXAMETHASONE 4 MG TABLET PO (09:41)
[2023-11-29] MEDS: OSELTAMIVIR PHOSPHATE 75 MG CAPSULE PO ×2 (09:41→21:54)
--- NOTE | 2023-11-29 10:11 | SWNOTE1 ---
PANFILO spoke to a email designer at [facility]. They do have concerns for patient as he has had a few hospital visits in last few months for his aspiration pneumonia. She stated she took him to doctors about 2 weeks ago and doctor voiced he is going to continue to decline. She stated [facility] signed him off and each month they re-eval him but he does not qualify. She asked if we could try another hospice. SW did let her know there are other hospices out there, [facility], [facility], [facility]. She requested we get another hospice consult if possible. She stated they are capable of meeting his needs and he is always able to return, they just want to see if they can get more assistance/care for him. Sw let her know SW will check with doctor and pt's sister. PANFILO sent message to case management who is with doctor. SW to call sister.
--- NOTE | 2023-11-29 11:22 | CM.NOTE ---
Rounds made with Dr. Aguirre, no discharge today. Possible Hospice consult d/t decline in medical condition. SW will speak with [facility] Caregiver and family.
--- NOTE | 2023-11-29 12:34 | PM.PN ---
Progress Note: Subjective Subjective Interval history: Patient improved overnight. More alert and able to wean down to 3 LPM. Afebrile. Continues to have cough and coarse BS. Normal appetite and no emesis or diarrhea. X-ray showed left femur fracture but healing. Seen by ortho and due to non ambulatory status does not recommend surgical intervention. Exam Constitutional Vital Signs, click to edit/add: Last Vital Signs Temp 98.0 F 11/29/23 05:29 Pulse 67 11/29/23 12:00 Resp 14 11/29/23 08:21 BP 121/68 11/29/23 05:29 Pulse Ox 92 L 11/29/23 09:25 O2 Del Method Nasal Cannula 11/29/23 09:25 O2 Flow Rate 3 11/29/23 09:25 Documenting provider has reviewed patient's vital signs: yes Common normals: no apparent distress and alert HENMT Common normals: normocephalic Eye Common normals: PERRL and EOMs intact bilaterally Respiratory Auscultation: rhonchi Cardio Common normals: regular rate, regular rhythm, no gallops, no murmurs and no rub GI Common normals: Normal to inspection, nondistended, normoactive bowel sounds present and non-tender Extremity Common normals: no pedal edema Progress Note: Objective Labs Labs: Short CBC 11/29/23 Range/Units 04:48 WBC 12.6 H (4.0-11.0) 10^3/uL Hgb 11.4 L (14.0-18.0) g/dL Hct 34.6 L (42.0-54.0) % Plt Count 126 L (150-450) 10^3/uL BMP 11/29/23 04:48 Sodium 146 H Potassium 3.5 Chloride 110 H Carbon Dioxide 29.2 BUN 19.0 H Creatinine 0.77 Glucose 101 Calcium 8.1 L Progress Note: A&P Assessment and Plan (1) Pneumonia: (2) Influenza A: (3) Acute hypoxic respiratory failure: (4) Fracture of distal end of femur with routine healing: (5) Type 2 diabetes mellitus with hyperglycemia: (6) Dysphagia: Qualifiers: Dysphagia type: unspecified Qualified Code(s): R13.10 - Dysphagia, unspecified (7) Down's syndrome: (8) Prediabetes: Plan Patient slowly improving and continue antibiotics for possible aspiration and tamiflu for influenza. Wean O2 as tolerated. Likely will need 1-2 more days in the hospital.
--- NOTE | 2023-11-29 13:03 | SWNOTE1 ---
Doctor will put hospice order in. SW left message for sister. SW received call from [facility] and they spoke with Vane and they are coming to re-eval pt. SW called sister and left her a message.
[2023-11-29] MEDS: 0.9 % SODIUM CHLORIDE 250 ML 10 ML IV (14:24)
[2023-11-29] MEDS: SCOPOLAMINE 1 MG/3 DAYS TRANSDERM PATCH 1 PATCH TD (15:11)
--- NOTE | 2023-11-29 15:40 | SWNOTE1 ---
Pt does have 2 liters of oxygen at night all the time. He has PRN oxygen during day, it's through [employer].
--- NOTE | 2023-11-29 15:49 | SWNOTE1 ---
[facility] is signing pt on for services. Pt's sister in room during assessment. Nursing is aware. PANFILO called and spoke to Radha at [facility]. She is aware of [facility] signing on pt. Pt will return to [facility] at discharge. They are aware of potential discharge tomorrow. Radha or Lorrie would like to be contacted to coordinate dc time. PANFILO left numbers on chart.
[2023-11-29] MEDS: DOCUSATE SODIUM 100 MG CAPSULE PO (21:53)
[2023-11-29] MEDS: ENOXAPARIN SODIUM 40 MG/0.4 ML SYRINGE SUBQ (21:54)
[2023-11-29] MEDS: CETIRIZINE HCL 10 MG TABLET PO (21:54)
[2023-11-29] MEDS: TAMSULOSIN HCL 0.4 MG CAPSULE PO (21:57)
[2023-11-30] VITALS (19 sets, daily range): BP systolic 98–120; BP diastolic 61–66; PULSE 52–87; RESP 10–24; TEMP 36.2–36.6; O2SAT 90–94
[2023-11-30 04:44] LABS: Basophils Percent Auto 0.1 % (0.2-2.0); Hematocrit 39.3 % (42.0-54.0); Hemoglobin 12.2 g/dL (14.0-18.0); Immature Granulocytes Abs Auto 0.09 10^3/uL (0.00-0.03); Immature Granulocytes Pct Auto 1.1 % (0.0-0.5); Lymphocytes Absolute Auto 0.4 10^3/uL (1.2-3.8); Lymphocytes Percent Auto 5.3 % (20.5-60.0); Mean Corpuscular Hemoglobin 32.6 pg (25.9-34.0); Mean Corpuscular Volume 105.1 fL (80.0-94.0); Mean Platelet Volume 12.1 fL (9.5-13.5); Monocytes Absolute Auto 0.5 10^3/uL (0.3-0.8); Neutrophils Absolute Auto 7.3 10^3/uL (1.4-6.5); Neutrophils Percent Auto 87.5 % (43.0-75.0); Platelet Count 100 10^3/uL (150-450); Red Blood Count 3.74 10^6/uL (4.70-6.10); Red Cell Distribution Width 14.4 % (11.0-15.0); White Blood Count 8.3 10^3/uL (4.0-11.0)
[2023-11-30 04:56] LABS: Anion Gap 11.5; BUN Creatinine Ratio 28.6; Calcium 8.2 mg/dL (8.5-10.1); Chloride 110 mmol/L (98-107); Estimated GFR (African America >60 (>=60); Estimated GFR (Non-African Ame >60 (>=60); Glucose 84 mg/dL (74-106); Potassium 4.5 mmol/L (3.5-5.1); Sodium 143 mmol/L (136-145)
[2023-11-30] MEDS: HYOSCYAMINE SULFATE 0.125 MG TAB.SUBL PO ×2 (06:22→14:21)
[2023-11-30] MEDS: CLINDAMYCIN PHOSPHATE/D5W 600 MG/50 ML PIGGYBACK 100 MG IV ×2 (06:22→14:21)
[2023-11-30] MEDS: NYSTATIN 15 GM POWDER 1 APPLIC TOPICAL ×2 (06:24→14:22)
[2023-11-30] MEDS: DEXAMETHASONE 4 MG TABLET PO (08:43)
[2023-11-30] MEDS: OMEPRAZOLE 20 MG CAPSULE.DR PO (08:43)
--- NOTE | 2023-11-30 08:43 | PM.PN ---
Progress Note: Subjective Subjective Interval history: Patient this morning has significant upper respiratory wheeze and rhonchi sounding. He is mouth breathing. Patient is nonverbal so is difficult to get any information. Mouth appears dry and the sound of significant upper respiratory secretions are noted. patient currently requiring 3 L nasal cannula. Afebrile. (X-ray showed left femur fracture but healing. Seen by ortho and due to non ambulatory status does not recommend surgical intervention) Patient is a [place] hospice patient and is DNR CC Exam Narrative Exam Narrative: General: Patient has his eyes open and tries talking but mouth appears dry, and is not able to cough Skin: no visible rashes, or ulcers Head: atraumatic Eyes: PERRLA, no nystagmus present, conjunctiva clear, no scleral icterus Mouth/Throat: dry mucus membranes Neck: no masses palpated Heart: Normal rate and rhythm, no murmurs/rubs/gallops Lungs: audible wheezes, no crackles, upper respiratory secretions audible Abdomen: Normal audible bowel sounds, no distension, No palpable masses, no organomegaly, no rebound/guarding/ or rigidity Musculoskeletal: no swelling bilateral lower extremities Constitutional Vital Signs, click to edit/add: Last Vital Signs Temp 97.2 F L 11/30/23 06:00 Pulse 58 L 11/30/23 07:48 Resp 14 11/30/23 07:25 BP 120/64 11/30/23 06:00 Pulse Ox 92 L 11/30/23 06:00 O2 Del Method Nasal Cannula 11/30/23 06:00 O2 Flow Rate 3 11/30/23 06:00 Progress Note: Objective Labs Labs: Short CBC 11/30/23 Range/Units 04:16 WBC 8.3 (4.0-11.0) 10^3/uL Hgb 12.2 L (14.0-18.0) g/dL Hct 39.3 L (42.0-54.0) % Plt Count 100 L (150-450) 10^3/uL BMP 11/30/23 04:16 Sodium 143 Potassium 4.5 Chloride 110 H Carbon Dioxide 26.0 BUN 18.0 Creatinine 0.63 L Glucose 84 Calcium 8.2 L Progress Note: A&P Assessment and Plan (1) Pneumonia: Assessment and Plan: currently seen in [facility], has history of aspiration. continue Clindamycin and Tamiflu Qualifiers: Pneumonia type: due to influenza A virus Qualified Code(s): J10.00 - Influenza due to other identified influenza virus with unspecified type of pneumonia (2) Influenza A: Assessment and Plan: droplet precautions and Tamiflu (3) Acute hypoxic respiratory failure: Assessment and Plan: Patient is not able to cough or clear his own Upper respiratory secretions making it difficult to expectorate, NT suction as needed, mouth breather. Continue to provide oxygen therapy as needed. currently 3L NC (4) Fracture of distal end of femur with routine healing: Assessment and Plan: ortho, no innervation since patient is bed bound, provide with pain control as needed. (5) Dysphagia: Qualifiers: Dysphagia type: unspecified Qualified Code(s): R13.10 - Dysphagia, unspecified (6) Down's syndrome: (7) Prediabetes: Plan Patient is a [facility] hospice, continue IV antibiotics hopeful discharge to home hospice but may require inpatient hospice, patient to still require 2-3 days of inpatient treatment
[2023-11-30] MEDS: PANTOPRAZOLE SODIUM 40 MG VIAL IV (08:44)
[2023-11-30] MEDS: OSELTAMIVIR PHOSPHATE 75 MG CAPSULE PO (08:44)
[2023-11-30] MEDS: 0.9 % SODIUM CHLORIDE 250 ML 10 ML IV (14:21)
--- NOTE | 2023-11-30 20:20 | RESP.RT ---
NT suctioned pt through each nostril. Moderate amount of thick secretions obtained.
[2023-11-30] MEDS: IPRATROPIUM/ALBUTEROL SULFATE 3 ML AMPUL.NEB IH (20:28)
[2023-12-01] VITALS (10 sets, daily range): BP systolic 117–131; BP diastolic 58–80; PULSE 61–85; RESP 18–24; TEMP 36.4–37; O2SAT 88–95
[2023-12-01] MEDS: AMMONIUM LACTATE 226 GM BOTTLE 1 APPLIC TOPICAL ×2 (00:17→22:05)
[2023-12-01] MEDS: NYSTATIN 15 GM POWDER 1 APPLIC TOPICAL ×4 (00:18→22:05)
[2023-12-01] MEDS: ENOXAPARIN SODIUM 40 MG/0.4 ML SYRINGE SUBQ ×2 (00:18→22:15)
[2023-12-01] MEDS: CLINDAMYCIN PHOSPHATE/D5W 600 MG/50 ML PIGGYBACK 100 MG IV ×4 (00:18→22:04)
[2023-12-01] MEDS: ACETAMINOPHEN 1,000 MG/100 ML PREMIX 400 MG IV (00:28)
[2023-12-01] MEDS: ALBUTEROL SULFATE 2.5 MG/3 ML VIAL NEB IH (04:21)
--- NOTE | 2023-12-01 04:35 | RESP.RT ---
NT suctioned pt and large amount of thick cream secretions obtained from both nostrils.
--- NOTE | 2023-12-01 04:40 | RESP.RT ---
titrated up to 4L
[2023-12-01 05:30] LABS: Basophils Percent Auto 0.1 % (0.2-2.0); Hematocrit 40.3 % (42.0-54.0); Hemoglobin 13.2 g/dL (14.0-18.0); Immature Granulocytes Pct Auto 1.4 % (0.0-0.5); Lymphocytes Absolute Auto 0.8 10^3/uL (1.2-3.8); Lymphocytes Percent Auto 10.5 % (20.5-60.0); Mean Corpuscular HGB Conc 32.8 g/dL (29.9-35.2); Mean Corpuscular Hemoglobin 33.3 pg (25.9-34.0); Mean Corpuscular Volume 101.8 fL (80.0-94.0); Mean Platelet Volume 11.7 fL (9.5-13.5); Monocytes Absolute Auto 0.6 10^3/uL (0.3-0.8); Monocytes Percent Auto 8.4 % (1.7-12.0); Neutrophils Absolute Auto 5.7 10^3/uL (1.4-6.5); Neutrophils Percent Auto 79.6 % (43.0-75.0); Platelet Count 106 10^3/uL (150-450); Red Blood Count 3.96 10^6/uL (4.70-6.10); Red Cell Distribution Width 14.3 % (11.0-15.0); White Blood Count 7.1 10^3/uL (4.0-11.0)
[2023-12-01 05:39] LABS: Anion Gap 11.6; Calcium 8.3 mg/dL (8.5-10.1); Chloride 106 mmol/L (98-107); Estimated GFR (African America >60 (>=60); Estimated GFR (Non-African Ame >60 (>=60); Glucose 116 mg/dL (74-106); Potassium 3.6 mmol/L (3.5-5.1); Sodium 146 mmol/L (136-145)
--- NOTE | 2023-12-01 08:21 | P.PN_ITS ---
Progress Note: Subjective Subjective Interval history: Patient this more alert this morning. He is mouth breathing. Patient is nonverbal so is difficult to get any information. Mouth appears dry and the sound of significant upper respiratory secretions are noted. patient currently requiring 3 L nasal cannula. Afebrile. Patient requiring NT suctioning to help clear secretions. (X-ray showed left femur fracture but healing. Seen by ortho and due to non ambulatory status does not recommend surgical intervention) Patient is a [place] hospice patient and is DNR CC Exam Narrative Exam Narrative: General: Patient has his eyes open and tries talking but mouth appears dry, and is not able to cough Skin: no visible rashes, or ulcers Head: atraumatic Eyes: PERRLA, no nystagmus present, conjunctiva clear, no scleral icterus Mouth/Throat: dry mucus membranes Neck: no masses palpated Heart: Normal rate and rhythm, no murmurs/rubs/gallops Lungs: audible wheezes, no crackles, upper respiratory secretions audible Abdomen: Normal audible bowel sounds, no distension, No palpable masses, no organomegaly, no rebound/guarding/ or rigidity Musculoskeletal: no swelling bilateral lower extremities Constitutional Vital Signs, click to edit/add: Last Vital Signs Temp 97.5 F L 12/01/23 06:00 Pulse 81 12/01/23 06:00 Resp 24 12/01/23 07:35 BP 117/58 12/01/23 06:00 Pulse Ox 91 L 12/01/23 06:00 O2 Del Method Nasal Cannula 12/01/23 06:00 O2 Flow Rate 3 12/01/23 06:00 Progress Note: Objective Labs Labs: Short CBC 12/01/23 Range/Units 04:48 WBC 7.1 (4.0-11.0) 10^3/uL Hgb 13.2 L (14.0-18.0) g/dL Hct 40.3 L (42.0-54.0) % Plt Count 106 L (150-450) 10^3/uL BMP 12/01/23 04:48 Sodium 146 H Potassium 3.6 Chloride 106 Carbon Dioxide 32.0 BUN 18.0 Creatinine 0.90 Glucose 116 H Calcium 8.3 L Progress Note: A&P Assessment and Plan (1) Pneumonia: Assessment and Plan: currently seen in [facility], has history of aspiration. continue Clindamycin Qualifiers: Pneumonia type: due to influenza A virus Qualified Code(s): J10.00 - Influenza due to other identified influenza virus with unspecified type of pneumonia (2) Influenza A: Assessment and Plan: droplet precautions and Tamiflu (3) Acute hypoxic respiratory failure: Assessment and Plan: Patient is not able to cough or clear his own Upper respiratory secretions making it difficult to expectorate, NT suction as needed, mouth breather. Continue to provide oxygen therapy as needed. currently 3L NC (4) Fracture of distal end of femur with routine healing: Assessment and Plan: ortho, no innervation since patient is bed bound, provide with pain control as needed. (5) Dysphagia: Assessment and Plan: continue special diet Qualifiers: Dysphagia type: unspecified Qualified Code(s): R13.10 - Dysphagia, unspecified (6) Down's syndrome: (7) Prediabetes: Plan Patient is a [facility] hospice, continue IV antibiotics hopeful discharge to home with hospice tomorrow on oral clindamycin and tamiflu
--- NOTE | 2023-12-01 08:23 | XR_ITS ---
The [address] [address] Patient Name: MANNIE SANDOVAL MRN: [id number] date: 1960 Sex: M Assigned Patient Location: [place] Current Patient Location: [place] Accession/Order Number: [id number] Exam Date: 12/01/2023 08:40 Report Date: 12/01/2023 09:17 At the request of: JENNIFER GAUTAM Procedure: XR chest 1V CLINICAL HISTORY: shortness of breath, cough. EXAMINATION: Portable semiupright chest: 12/01/2023 at 0806 hours. COMPARISON: Portable chest: 11/27/2023. FINDINGS: The visualized soft tissues demonstrate significant degenerative changes of the shoulder joints. The heart size seems normal. The aorta has normal contour. There is calcified granuloma in the left upper lobe. There is patchy density at the left lung base. This seems new since previous examination. The remaining lungs appear clear. There is no pulmonary edema or pneumothorax. XR/XR chest 1V IMPRESSION: There is a new increased density at left lung base which could be due to atelectasis or developing infiltrate. The remaining lungs are free of infiltrates, pleural edema or pneumothorax. Electronically authenticated by: CORRIE AGUILAR Date: 12/01/2023 09:17
[2023-12-01] MEDS: LACTOSE -REDUCED (ENSURE ORIGINAL 237 ML LIQUID) PO (09:12)
[2023-12-01] MEDS: DEXAMETHASONE 4 MG TABLET PO (09:12)
[2023-12-01] MEDS: OMEPRAZOLE 20 MG CAPSULE.DR PO (09:12)
[2023-12-01] MEDS: PANTOPRAZOLE SODIUM 40 MG VIAL IV (09:12)
[2023-12-01] MEDS: OSELTAMIVIR PHOSPHATE 75 MG CAPSULE PO (09:12)
[2023-12-01] MEDS: HYOSCYAMINE SULFATE 0.125 MG TAB.SUBL PO (15:01)
[2023-12-01] MEDS: IPRATROPIUM/ALBUTEROL SULFATE 3 ML AMPUL.NEB IH (18:42)
[2023-12-02] MEDS: CLINDAMYCIN PHOSPHATE/D5W 600 MG/50 ML PIGGYBACK 100 MG IV (05:13)
[2023-12-02 05:14] LABS: Basophils Percent Auto 0.3 % (0.2-2.0); Hematocrit 39.8 % (42.0-54.0); Hemoglobin 12.6 g/dL (14.0-18.0); Immature Granulocytes Abs Auto 0.27 10^3/uL (0.00-0.03); Immature Granulocytes Pct Auto 3.6 % (0.0-0.5); Mean Corpuscular HGB Conc 31.7 g/dL (29.9-35.2); Mean Corpuscular Hemoglobin 32.7 pg (25.9-34.0); Mean Corpuscular Volume 103.4 fL (80.0-94.0); Mean Platelet Volume 10.8 fL (9.5-13.5); Monocytes Absolute Auto 0.6 10^3/uL (0.3-0.8); Monocytes Percent Auto 7.6 % (1.7-12.0); Neutrophils Absolute Auto 5.7 10^3/uL (1.4-6.5); Neutrophils Percent Auto 75.5 % (43.0-75.0); Platelet Count 145 10^3/uL (150-450); Red Blood Count 3.85 10^6/uL (4.70-6.10); Red Cell Distribution Width 14.5 % (11.0-15.0); White Blood Count 7.5 10^3/uL (4.0-11.0)
[2023-12-02] MEDS: NYSTATIN 15 GM POWDER 1 APPLIC TOPICAL ×2 (05:14→13:56)
[2023-12-02 05:26] VITALS: BP 122/88; PULSE 86; RESP 14; TEMP 37.1; O2SAT 91
[2023-12-02 05:52] LABS: Anion Gap 11.1; BUN Creatinine Ratio 16.7; Calcium 8.3 mg/dL (8.5-10.1); Carbon Dioxide 31.6 mmol/L (21.0-32.0); Chloride 108 mmol/L (98-107); Estimated GFR (African America >60 (>=60); Estimated GFR (Non-African Ame >60 (>=60); Glucose 80 mg/dL (74-106); Potassium 3.7 mmol/L (3.5-5.1); Sodium 147 mmol/L (136-145)
--- NOTE | 2023-12-02 08:53 | P.DS_ITS ---
DS: Providers Provider Date of admission: 11/27/23 23:09 Primary care physician: JESSICA ALBA Admitting clinician: Raymond Aguirre Consults: 11/27/23 22:35 Consult to Pharmacy Routine Consulting Provider: Marlen Perea Reason for consultation: Vancomycin dosing/monitoring Has provider been notified: No 11/28/23 09:00 Occupational Therapy Eval and Treat Routine Reason for consultation: Immobility Has provider been notified: No Physical Therapy Eval and Treat Routine Reason for consultation: Immobility Has provider been notified: No 11/28/23 13:37 Consult to Orthopedic Surgery Routine Consulting Provider: Nemesio Magana Reason For Exam: Reason for consultation: Femur fracture Has provider been notified: No 11/29/23 14:59 Consult to Hospice Routine Reason for consultation: Down's syndrome Has provider been notified: No Discharging clinician: Kizzy Dykes DS: Diagnosis Discharge Diagnosis (1) Pneumonia: Qualifiers: Pneumonia type: due to influenza A virus Qualified Code(s): J10.00 - Influenza due to other identified influenza virus with unspecified type of pneumonia (2) Influenza A: (3) Acute hypoxic respiratory failure: (4) Fracture of distal end of femur with routine healing: (5) Dysphagia: Qualifiers: Dysphagia type: unspecified Qualified Code(s): R13.10 - Dysphagia, unspecified (6) Down's syndrome: (7) Prediabetes: DS: Summary Hospital Course Hospital Course: (1) Pneumonia: Assessment and Plan: currently seen in [facility], has history of aspiration. continue Clindamycin has completed 5 days, will be discharged on 2 more days 600mg TID for a total of 7 days. He will also need continues oxygen 4L while at facility. Hospice to resume care once he's at [facility]. Qualifiers: Pneumonia type: due to influenza A virus Qualified Code(s): J10.00 - Influenza due to other identified influenza virus with unspecified type of pneumonia (2) Influenza A: Assessment and Plan: completed 4 days of Tamiflu, will need remaining 2 doses on day 5 (3) Acute hypoxic respiratory failure: Assessment and Plan: Patient required some NT suctioning which helped. On continuous O2 4) Fracture of distal end of femur with routine healing: Assessment and Plan: ortho, no innervation since patient is bed bound, provide with pain control as needed. (5) Dysphagia: Assessment and Plan: continue special diet Qualifiers: Dysphagia type: unspecified Qualified Code(s): R13.10 - Dysphagia, unspecified (6) Down's syndrome: Discharge to care facility today, [facility] (7) Prediabetes: Status at Discharge Functional status at discharge: bed bound Overall status at discharge: patient is progressing back to baseline Time Spent with Patient Time attestation: Total time spent providing and/or coordinating discharge services: Time spent: greater than 30 minutes Exam Narrative Exam Narrative: General: Patient has his eyes open and tries talking but cannot Skin: no visible rashes, or ulcers Head: atraumatic Eyes: PERRLA, no nystagmus present, conjunctiva clear, no scleral icterus Mouth/Throat: dry mucus membranes Neck: no masses palpated Heart: Normal rate and rhythm, no murmurs/rubs/gallops Lungs: audible wheezes, no crackles Abdomen: Normal audible bowel sounds, no distension, No palpable masses, no organomegaly, no rebound/guarding/ or rigidity Musculoskeletal: no swelling bilateral lower extremities Constitutional Vital Signs, click to edit/add: Last Vital Signs Temp 98.8 F 12/02/23 05:26 Pulse 86 12/02/23 05:26 Resp 14 12/02/23 05:26 BP 122/88 12/02/23 05:26 Pulse Ox 91 L 12/02/23 05:26 O2 Del Method Nasal Cannula 12/02/23 05:26 O2 Flow Rate 4 12/02/23 05:26 DS: Data Data Completed and Pending Labs on day of discharge: Labs from last 24 hours 12/02/23 04:17 WBC 7.5 RBC 3.85 L Hgb 12.6 L Hct 39.8 L MCV 103.4 H MCH 32.7 MCHC 31.7 RDW 14.5 Plt Count 145 L MPV 10.8 Neut % (Auto) 75.5 H Lymph % (Auto) 13.0 L Spink % (Auto) 7.6 Eos % (Auto) 0.0 L Baso % (Auto) 0.3 Neut # (Auto) 5.7 Lymph # (Auto) 1.0 L Spink # (Auto) 0.6 Eos # (Auto) 0.0 Baso # (Auto) 0.0 Abs Immat Gran (auto) 0.27 H Imm/Tot Granulo (auto) 3.6 H Sodium 147 H Potassium 3.7 Chloride 108 H Carbon Dioxide 31.6 Anion Gap 11.1 BUN 13.0 Creatinine 0.78 Est GFR ( Amer) >60 Est GFR (Non-Af Amer) >60 BUN/Creatinine Ratio 16.7 Glucose 80 Calcium 8.3 L Preliminary micro results at discharge 11/27/23 22:02 - Preliminary Blood NO GROWTH AT 36-48 HOURS. FINAL TO FOLLOW. 11/27/23 21:53 Blood Culture Result 1 - Preliminary Blood NO GROWTH AT 36-48 HOURS. FINAL TO FOLLOW. Discharge Plan Discharge Disposition: Home, Self-Care Condition: Fair Discharge Medications: New clindamycin HCl 150 mg Capsule 300 mg PO TID 2 Days Qty: 12 0RF oseltamivir 75 mg Capsule 75 mg PO BID 1 Days Qty: 2 0RF Protocol: Tamiflu (1-12 yrs) Condition: Weight < 15kg Dose/Route: 30 mg Instruction: PO Condition: Weight 15-23 kg Dose/Route: 45 mg Instruction: PO Condition: Weight 24-40 kg Dose/Route: 60 mg Instruction: PO Condition: Weight > 41 kg Dose/Route: 75 mg Instruction: PO Continued miconazole nitrate [Antifungal (miconazole)] 2 % powder 1 applic topical TID Dermacerin Cream 1 applic topical DAILY ipratropium-albuterol 0.5 mg-3 mg(2.5 mg base)/3 mL solution for nebulization 3 ml INHALATION TID acetaminophen 325 mg capsule 325 mg PO Q4H PRN (Reason: fever or pain) promethazine 25 mg tablet 25 mg PO Q6H PRN (Reason: nausea and vomiting) docusate sodium [DOK] 100 mg tablet 100 mg PO DAILY PRN (Reason: constipation) dexamethasone 4 mg tablet 4 mg PO DAILY docusate sodium [Colace] 100 mg capsule 100 mg PO DAILY hyoscyamine sulfate 0.125 mg tablet,disintegrating 0.125 mg PO Q8H loratadine 10 mg tablet 10 mg PO DAILY omeprazole 20 mg capsule,delayed release(DR/EC) 20 mg PO BID tamsulosin 0.4 mg capsule 0.4 mg PO DAILY albuterol sulfate 1.25 mg/3 mL solution for nebulization 1.25 mg inhalation Q8H PRN (Reason: shortness of breath or wheezing) ammonium lactate 12 % cream 1 applic topical DAILY Rx Instructions: APPLY TO AFFECTED AREA nystatin 100,000 unit/gram powder 1 applic topical BID Ensure Liquid 1 ea PO BID Eucerin Cream 1 applic topical BID menthol-zinc oxide [Calmoseptine] 0.44-20.6 % ointment 1 applic topical TID-QID PRN (Reason: skin irritation) Rx Instructions: APPLY TO BUTTOCKS WITH EACH BRIEF CHANGE NEEDED Activity: resume usual activities as tolerated Diet: advance to your usual diet Patient Instructions: Clindamycin (By mouth), Oseltamivir (By mouth), Influenza (DC) Activity Restrictions/Additional Instructions: Patient to use continuous nasal Cannula oxygen 4 Liters, hospice to resume care once discharged back to facility 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
[2023-12-02] MEDS: DEXAMETHASONE 4 MG TABLET PO (09:25)
[2023-12-02] MEDS: OSELTAMIVIR PHOSPHATE 75 MG CAPSULE PO ×2 (09:26→13:55)
[2023-12-02] MEDS: LACTOSE -REDUCED (ENSURE ORIGINAL 237 ML LIQUID) PO (09:26)
[2023-12-02] MEDS: OMEPRAZOLE 20 MG CAPSULE.DR PO (09:26)
[2023-12-02] MEDS: PANTOPRAZOLE SODIUM 40 MG VIAL IV (09:41)
--- NOTE | 2023-12-02 10:00 | SWNOTE1 ---
PANFILO spoke with Mehul at [facility], they did have all equipment delivered to assisted on Saturday evening. PANFILO let Mehul know SW will call office if he is discharged today.
--- NOTE | 2023-12-02 10:01 | SWNOTE1 ---
Plan is for pt to sign on to [facility] once he is dc back to assisted. See [facility] progress note from 11/29/23 in pt's chart.
[2023-12-02 10:05] VITALS: O2SAT 94
[2023-12-02 10:11] VITALS: BP 113/68; PULSE 78; RESP 16; TEMP 37; O2SAT 97
--- NOTE | 2023-12-02 11:09 | PC.NURSE ---
called report to [facility] at this time.
--- NOTE | 2023-12-02 11:47 | CM.NOTE ---
Rounds made with Dr. Dykes, pt will discharge back to [facility] today with Hospice. SW updated to set up transport.
[2023-12-02 11:52] VITALS: BP 126/85; PULSE 60; RESP 16; TEMP 36.8; O2SAT 99
--- NOTE | 2023-12-02 12:01 | SWNOTE1 ---
Pt is returning to [facility] and will sign on to [facility] once arriving back. PANFILO spoke to Rubens at [facility] and she will just need an order in regards to continuous 4 liters and then hospice will take over. PANFILO let Rubens know time of dc. Rubens did voice they will not get scripts until tomorrow afternoon. He will need an antibiotic tonight and tomorrow morning. SW to check wit our pharmacy. PANFILO did call [facility] and they will be at [facility] by 2:30. PANFILO called pt's sister Deandra and she is aware of time and will be coming to hospital then [facility] to sign papers. PANFILO did review IMM form with pt's sister, no questions.
[2023-12-02] MEDS: HYOSCYAMINE SULFATE 0.125 MG TAB.SUBL PO (13:14)
[2023-12-02] MEDS: CLINDAMYCIN HCL 150 MG CAPSULE 300 MG PO (13:14)
[2023-12-02 13:37] VITALS: BP 98/63; PULSE 68; RESP 18; TEMP 37.2; O2SAT 93
[2023-12-02] MEDS: CLINDAMYCIN HCL 150 MG CAPSULE 600 MG PO (13:55)
--- NOTE | 2023-12-02 13:57 | PC.NURSE ---
clindamycin and tamiflu [facility]. in transport packet
--- NOTE | 2023-12-03 15:05 | CM.DCFOLLOWU ---
Pt is in a fpc, discharged back with Hospice care.
== END 2023-12-02 14:22 | disposition hospice, home (50) | DRG 193 ==
LOC: ER 22:08 → MS 23:09
PROVIDERS: Registered Nurse; Admitting Provider Family Medicine; Emergency Provider Internal Medicine; PCP Internal Medicine; Visit Provider Family Medicine
DX: J10.00 Influenza due to other identified influenza virus with unspecified type of pneumonia (principal); J96.01 Acute respiratory failure with hypoxia; S72.402A Unspecified fracture of lower end of left femur, initial encounter for closed fracture; Y92.129 Unspecified place in nursing home as the place of occurrence of the external cause; W05.0XXA Fall from non-moving wheelchair, initial encounter; R13.10 Dysphagia, unspecified; R73.03 Prediabetes; Q90.9 Down syndrome, unspecified; Z66 Do not resuscitate; J45.909 Unspecified asthma, uncomplicated; N40.0 Benign prostatic hyperplasia without lower urinary tract symptoms; H91.90 Unspecified hearing loss, unspecified ear; H54.40 Blindness, one eye, unspecified eye; Z87.01 Personal history of pneumonia (recurrent); Z79.52 Long term (current) use of systemic steroids; Z79.899 Other long term (current) drug therapy; Z88.0 Allergy status to penicillin; Z82.49 Family history of ischemic heart disease and other diseases of the circulatory system; Z51.5 Encounter for palliative care; Z74.01 Bed confinement status
CPT/HCPCS: 0202U; 31720; 36415; 71045; 73552; 73560; 80048; 80053; 82800; 83036; 83605; 83880; 84145; 84484; 85007; 85025; 85027; 87040; 93005; 94640; 94761; 96361; 96365; 96366; 96368; 96372; 96375; 96376; 97161; 99285; J0131; J0736; J1650; J1940; J2930; J3370; J8540